=== PATIENT | female | born 1960 | race Caucasian/White ===

== ENCOUNTER 2017-09-24 10:55 | Outpatient (RCR) | payer BC, SELFPAY ==
--- NOTE | 2017-09-24 12:55 | HP.OTFCE_ITS ---
HP OT Functional Capacity Eval - Task Lift Floor (Occasional 1-33% of Day): negligible Floor (Frequent 34-66% of Day): negligible Floor (Constant 67-100% of Day): negligible Floor PDL: Sedentary Knee (Occasional 1-33% of Day): negligible Knee (Frequent 34-66% of Day): negligible Knee (Constant 67-100% of Day): negligible Knee PDL: Sedentary Waist (Occasional 1-33% of Day): negligible Waist (Frequent 34-66% of Day): negligible Waist (Constant 67-100% of Day): negligible Waist PDL: Sedentary Shoulder (Occasional 1-33% of Day): negligible Shoulder (Frequent 34-66% of Day): negligible Shoulder (Constant 67-100% of Day): negligible Shoulder PDL: Sedentary Overhead (Occasional 1-33% of Day): negligible Overhead (Frequent 34-66% of Day): negligible Overhead (Constant 67-100% of Day): negligible Overhead PDL: Sedentary Comments: Pain is significant. She is unable to complete at this time. Further FCE testing would be benefical after MRi and after pain is managed abd treatment has be sought. Pain is limiting all fucntional tasks at this time. - Work Activity/Posture Bending: Occasional Ability (1-33% of day) Squatting: No Ablility (0% of day) Kneeling: No Ablility (0% of day) Reaching up: Occasional Ability (1-33% of day) Sitting: Frequent Ability (34-66% of day) Walking: Occasional Ability (1-33% of day) Comments: 20-33% Standing: Occasional Ability (1-33% of day) Comments: 10-20% - Reference Duration Sedentary Sedentary Light Light Light Medium Medium Medium Heavy Very Heavy Heavy Occasional (0-33% of day) Frequent (34-66% of day) Constant (67-100% of day) 10 # Negligible Negligible 15 # 8 # Negligible 20 # 10# Negli. 35 # 18 # 7 # 50 # 25 # 10 # 75 # 100 # >100 # 38 # 50 # >50 # 15 # 20 # >20 # - Patient Information Height: 1.65 m Weight:: 202 kg Hand Dominance: R - Medical History Medical History Including Restrictions: Pt. notes no medical restrictions at this time. - Diagnoses Diagnoses: PMHx: hemrrhoid surgery July, gallbladder in 2016, CTS release, histeroectomy (1994), COPD, asthma. Current: Had second hemrrhoid surgery is intestine resuction in July 282017. - Symptoms Symptoms: Pt. noted that 'tenderness of tailbone' at end of August after hemrrhoid surgery. Got checked out by doctor by Dr. Patel. She noted released to go back to work September 07. Went to ER in [place] that night due to excruciating pain. Symptoms now include pain in low back. Notes that she feels 'like pulsations in legs and I know I need to sit quick. Notes inable to feel shot injected in back at ER or banaid that they place on low back. - Pain Pain: Pt. rated pain 6/10 in seated position. 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 Reports lifiting requirements between 30-50 lbs. Increased bag weight in pets at 50 lbs. 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 - Behavioral Behavioral: Did not take any pain pills prior to FCE. Consistently educated to complete within pain tolerated. Emotional with increase in pain. Stated I would rather be working that going through this. I like work. - ADLS ADLS: Pt. lives in house with mother. She noted 2 steps to get front door but handrials and posts that she uses instead. Once in home it is FFSU or everything. She noted she does not go up stairs and noted tried to go down to basement last nigth and fell needing mother to get back up on feet. Approximately 15-16 steps to base and same to get to second level. She sleeps in recliner due to COPD. She is completing ADLs (I). She is mod I for bathing as noted she is using shower chair for bathing tasks as difficulty to standing is shower. She is unable to complete grocery shopping at this time. She ntoed she normally cooks and cleans but is unable to compelte cookign at this time secondary to pain. She has dog inwhich mother is helpping to care for at this time. - Physical Examination Physical Examination: Pt. arrived with FCE on this date. She has MRI scheduled after FCE. All tasks completed within pain limit. Worked on joint integrity during tasks to help decrease pain. Pt. noted that she had to complete FCE prior to MRI due to insurance claims. OT educated this may be more beneficial after MRI and as she appeared to be in significant pain. Would be recommend having another FCE when pain is control and has increased functional and pain is significantly limiting ability to complete all functional tasks at this time. She would benefit from further follow up with doctor and potentially PT for management of back pain. ROM: B UE: WFL, increased pain in back with internal rotation. B LE: Pain is limiting at this time. She is unable to complete ROM from standing position as she reports significant pain. ABle to ssume 90 hip flexion, WNL of knee flexion , adn WNL of dorsiflexion from seated position. Verbalized increased pain in L LE. Strength: B UE: Deltoid: R 3+/5, L 3/5. bicep: R 4/5, L 4/5. triceps: R 3+/5 , L 3/5- increased pain as explianedit's pushing me back into chair. BLE: . Able to lift foot off foot but unable to take resistance or hip flexion on B side with L being worse gopi R.MMT R -3/5, L -3/5. Quadracep: R 3/5, L -3/5. Hamstring: R 3/5, L -3/5. Dorsiflexion: R 3/5, L -3/5. PlantarFlexion: R 3/5, L -3/5. Signficiant paina nd compensatiosn with trying to assum testing psoition from seated positions. Emotional at end of task due to pain. Pain gillette increased to 7/10 pain. Right Operating Systems Specialist Strength Average: 45.33 Right Operating Systems Specialist Strength Percentile: 5 Left Operating Systems Specialist Strength Average: 31.33 Left Operating Systems Specialist Strength Percentile: below 10th Right Lateral Pinch Average: 11.00 Right Lateral Pinch Percentile: aboev 25th below 50th Left Lateral Pinch Average: 11.66 Left Lateral Pinch Percentile: 50th Right Tripod Pinch Average: 11.33 Right Tripod Pinch Percentile: 50th Left Tripod Pinch Average: 8.66 Left Tripod Pinch Percentile: 25th Sensation: Sensation is WFL in hands. Increased numbness and tingling in feet all the time since increased symptoms of low back pain. Fine Motor: Intact and WFL. Balance: Poor without w/w or external support. - Non Material Handling Activities Bendinx with poor body mechanics and decreased speed. Able to assum 90-100 degrees hip flexion from standing positiong. Needed external support of legs. Pain increased to 8/10. Pain is signficantly limiting at this time. Squatting: Refused due to inability at this time. Refused secodnary to pain. Pain in limiting at this time. Kneeling: Unable at this time. Not attempted due to safety concerns. Reaching out/up: From seated position: reaching out: 3x, 5x, unable to continue due to pain. Pain 8/10. From seated position: reaching up: 3x, 6x, unable to continue due to pain. Pain 8/10. Pain signficnatly limiting at this time Walking: Completed fx mobility with w/w from lobby to OT with 1x seated break for 1 mins. Walked from OT to stair area with need for 4 breaks and able to handle 2 mins at a time prior to need for break. As walking tasks continued she exhibited increased L foot lag with gait. Required w/c escort to leave facility. Standing: Less than a minute. Approximaly 2 mins with dynamic tasks. Increased pain with all standing tasks and refused to complete static standing actvity any longer due to pain. Pain is limiting at this time. Sittin-60 mins with weight shifts as needed and compensations as needed. Climbing Stairs: Completed 4 stairs only, with increased reliance of B UE and use of B Handrails. She completed with R foot lead. Increased L foot lag. - Dynamic Occasional Lifting Capacity Floor Lift: Unable to complete at this time. Pain significantly limiting. Knee Lift: Unable to complete at this time. Pain significantly limiting. Waist Lift: Unable to complete at this time. Pain significantly limiting. Shoulder Lift: Unable to complete at this time. Pain significantly limiting. Overhead Lift: Unable to complete at this time. Pain significantly limiting. Carrying: Unable to complete at this time. Pain significantly limiting.
--- NOTE | 2017-09-24 12:56 | HP.OTFCE.D ---
FCE D/C Summary - Discharge YUNIER ZAMORA was seen for a one time visit for an FCE on 09/24/17 and is discharged.
--- NOTE | 2017-09-25 08:42 | HP.OTFCE_ITS ---
HP OT Functional Capacity Eval - Task Lift Floor (Occasional 1-33% of Day): negligible Floor (Frequent 34-66% of Day): negligible Floor (Constant 67-100% of Day): negligible Floor PDL: Sedentary Knee (Occasional 1-33% of Day): negligible Knee (Frequent 34-66% of Day): negligible Knee (Constant 67-100% of Day): negligible Knee PDL: Sedentary Waist (Occasional 1-33% of Day): negligible Waist (Frequent 34-66% of Day): negligible Waist (Constant 67-100% of Day): negligible Waist PDL: Sedentary Shoulder (Occasional 1-33% of Day): negligible Shoulder (Frequent 34-66% of Day): negligible Shoulder (Constant 67-100% of Day): negligible Shoulder PDL: Sedentary Overhead (Occasional 1-33% of Day): negligible Overhead (Frequent 34-66% of Day): negligible Overhead (Constant 67-100% of Day): negligible Overhead PDL: Sedentary Comments: Pain is significant. She is unable to complete at this time. Further FCE testing would be benefical after MRI to ensure spinal integrity and after pain management program has been implemented. Pain is limiting all fucntional tasks at this time. - Work Activity/Posture Bending: Occasional Ability (1-33% of day) Squatting: No Ablility (0% of day) Kneeling: No Ablility (0% of day) Reaching up: Occasional Ability (1-33% of day) Sitting: Frequent Ability (34-66% of day) Walking: Occasional Ability (1-33% of day) Comments: 20-33% Standing: Occasional Ability (1-33% of day) Comments: 10-20% - Reference Duration Sedentary Sedentary Light Light Light Medium Medium Medium Heavy Very Heavy Heavy Occasional (0-33% of day) Frequent (34-66% of day) Constant (67-100% of day) 10 # Negligible Negligible 15 # 8 # Negligible 20 # 10# Negli. 35 # 18 # 7 # 50 # 25 # 10 # 75 # 100 # >100 # 38 # 50 # >50 # 15 # 20 # >20 # - Patient Information Height: 1.65 m Weight:: 202 kg Hand Dominance: R - Medical History Medical History Including Restrictions: Pt. notes no medical restrictions at this time. - Diagnoses Diagnoses: PMHx: hemorrhoid surgery July, gallbladder in May 2016, CTS release, hysterectomy (1994), COPD, asthma. Current: Had second hemorrhoid surgery is intestine resection in July 282017. - Symptoms Symptoms: Pt. noted that 'tenderness of tailbone' at end of August after hemorrhoid surgery. Got checked out by doctor by Dr. Patel. She noted released to go back to work September 07. Went to ER in [place] that night due to excruciating pain. Symptoms now include pain in low back. Notes that she feels ' like pulsations in legs and I know I need to sit quick. Notes unable to feel shot injected in back at ER or band aid that they place on low back. - Pain Pain: Pt. rated pain 6/10 in seated position. 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 Reports lifting requirements between 30-50 lbs. 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 report being 50 lbs. 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 - Behavioral Behavioral: Did not take any pain pills prior to FCE. Consistently educated to complete within pain tolerated. Emotional with increase in pain. Grimace and winces noted throughout tasks. Educated to complete within pain tolerance. Stated I would rather be working that going through this. I like work. - ADLS ADLS: Pt. lives in house with mother. She noted 2 steps to get front door but handrails and posts that she uses instead. Once in home it is FFSU or everything. She noted she does not go upstairs and noted tried to go down to basement last night and fell needing mother to get back up on feet. Approximately 15-16 steps to base and same to get to second level. She sleeps in recliner due to COPD. She is completing ADLs (I). She is mod I for bathing as noted she is using shower chair for bathing tasks as difficulty to standing is shower. She is unable to complete grocery shopping at this time. She noted she normally cooks and cleans but is unable to complete cooking at this time secondary to pain. She has dog in which mother is helping to care for at this time. - Physical Examination Physical Examination: Pt. arrived with FCE on this date. She has MRI scheduled after FCE. All tasks completed within pain limit. Worked on joint integrity during tasks she could participate in to help decrease pain. Pt. noted that she had to complete FCE prior to MRI due to insurance claims. OT educated this may be more beneficial after MRI as she appeared to be in significant pain. She noted she wanted to continue. Would recommend having another FCE when pain is under control and has increased functional activity tolerance. Pain is significantly limiting ability to complete all functional tasks. She would benefit from further follow up with doctor and potentially PT for management of back pain. ROM: B UE: WFL, increased pain in back with internal rotation. B LE: Pain is limiting at this time. She is unable to complete ROM from standing position as she reports significant pain. Able to assume 90 hip flexion, WNL of knee flexion , and WNL of dorsiflexion from seated position and heels resting on floor. Verbalized increased pain in L LE. Strength: B UE: Deltoid: R 3+/5, L 3/5. bicep: R 4/5, L 4/5. triceps: R 3+/5 , L 3/5- increased pain as explianed it's pushing me back into chair. BLE: . Able to lift foot off foot but unable to take resistance or hip flexion on B side with L being worse gopi R.MMT R -3/5, L -3/5. Quadracep: R 3/5, L -3/5. Hamstring: R 3/5, L -3/5. Dorsiflexion: R 3/5, L -3/5. PlantarFlexion: R 3/5, L -3/5. Signficiant pain and compensations with trying to assume testing psoition from seated positions. Emotional at end of task due to pain. Pain gillette increased to 7/10 pain. Right Oracle Database Manager Strength Average: 45.33 Right Oracle Database Manager Strength Percentile: 5 Left Oracle Database Manager Strength Average: 31.33 Left Oracle Database Manager Strength Percentile: below 10th Right Lateral Pinch Average: 11.00 Right Lateral Pinch Percentile: aboev 25th below 50th Left Lateral Pinch Average: 11.66 Left Lateral Pinch Percentile: 50th Right Tripod Pinch Average: 11.33 Right Tripod Pinch Percentile: 50th Left Tripod Pinch Average: 8.66 Left Tripod Pinch Percentile: 25th Sensation: Sensation is WFL in hands. Increased numbness and tingling in feet all the time since increased symptoms of low back pain. Fine Motor: Intact and WFL. Balance: Poor without w/w or external support. She reports not having used a w/ w prior to recent back injury. Since time of back injury she noted she has been unable to walk due to significant pain. Increased trunk flexion when asked to not use hand on w/w. Increased grimace and wincing noted. Pain appears significant at this time. - Non Material Handling Activities Bendinx with poor body mechanics and decreased speed. Able to assume 90-100 degrees hip flexion from standing position. Needed external support of legs. Pain increased to 8/10. Winces and grimaces noted. Pain significantly limiting at this time. Squatting: Refused due to inability at this time. Refused secondary to pain. Pain appears limiting at this time. Kneeling: Unable at this time. Not attempted due to safety concerns. Reaching out/up: From seated position: reaching out: 3x, 5x, unable to continue due to pain. Pain 8/10. From seated position: reaching up: 3x, 6x, unable to continue due to pain. Pain 8/10. Pain significantly limiting at this time Walking: Completed fx mobility with w/w from lobby to OT with 1x seated break for 1 mins. Previously did not use w/w prior to back pain. Walked from OT to stair area with need for 4 breaks and able to handle 2 mins at a time prior to need for break. As walking tasks continued she exhibited increased L foot lag with gait. Required w/c escort to leave facility as pain was limiting function. Standing: Less than a minute. Approximately 2 mins with dynamic tasks. Increased pain with all standing tasks and refused to complete static standing activity any longer due to pain. Pain is limiting at this time. Sittin-60 mins with weight shifts and compensations as needed. Notes most comfortable position is seated in reclined in chair. Climbing Stairs: Completed 4 stairs only, with increased reliance of B UE and use of B handrails. She completed with R foot lead. Increased L foot lag. Increased grimance throughout task. Appears to be significant pain. - Dynamic Occasional Lifting Capacity Floor Lift: Unable to complete at this time. Pain significantly limiting. Knee Lift: Unable to complete at this time. Pain significantly limiting. Waist Lift: Unable to complete at this time. Pain significantly limiting. Shoulder Lift: Unable to complete at this time. Pain significantly limiting. Overhead Lift: Unable to complete at this time. Pain significantly limiting. Carrying: Unable to complete at this time. Pain significantly limiting.
== END 2017-09-24 19:00 | disposition home or self-care (01) ==
LOC: OT 10:55
PROVIDERS: Family Provider Family Medicine; PCP Family Medicine; Visit Provider Nurse Practitioner Adult Health
DX: Z13.9 Encounter for screening, unspecified (principal)
CPT/HCPCS: 97750

== ENCOUNTER 2017-11-19 22:32 | Emergency (ER) | payer BC, SELFPAY ==
[2017-11-19 22:33] VITALS: BP 130/78; PULSE 79; RESP 18; TEMP 36.3; O2SAT 97; BMI 35.2
--- NOTE | 2017-11-19 22:37 | RAD_ITS ---
STUDY: X-RAY - LEFT FOOT CLINICAL: Female, 57 years old. FELL, ROLLED ANKLE TECHNIQUE: 3 view(s) of the foot. COMPARISON: None. FINDINGS: There is demineralization of the rear and midfoot bones. There is an enthesophyte involving the posterior superior calcaneus at the site of insertion of the Achilles tendon. Normal visualized subtalar, talonavicular, calcaneocuboid, tarsal and tarsometatarsal articulations. There is demineralization of the metatarsi. Normal metatarsophalangeal joint of the great toe. Normal tibial and fibular sesamoid bones. Normal interphalangeal joint of the great toe. Normal phalanges of the great toe. Normal second through fifth metatarsophalangeal joints. Normal interphalangeal joints and phalanges of the lesser toes. The soft tissue structures are unremarkable. RAD/Foot min 3 Views IMPRESSION: There is an enthesophyte involving the posterior superior calcaneus at the site of insertion of the Achilles tendon. There is demineralization of the bones of the foot Electronically Signed: Naun Broussard MD at 23:30 EDT , Service support ,
--- NOTE | 2017-11-20 00:10 | RAD_ITS ---
STUDY: X-RAY - LEFT ANKLE REASON FOR EXAM: Female, 57 years old. Pain TECHNIQUE: 3 view(s) of the ankle. COMPARISON: None. FINDINGS: There are no acute fractures or dislocations. The ankle mortise and the subtalar joints are normal. There is a bony enthesophyte from the posterior margin of the os calcis. RAD/Ankle min 3 Views IMPRESSION: No fracture. Small bony enthesophyte from the posterior margin of the os calcis Electronically Signed: Emeka Ba, at 0:40 EDT Tel , Service support ,
[2017-11-20] MEDS: HYDROcodone Bitartrate/Apap 5/325 Tablet PO (00:27)
--- NOTE | 2017-11-20 00:32 | ED.DCSUM_ITS ---
- ER Visit Summary Date of Service: 11/20/17 Chief Complaint: Left ankle pain History of Present Illness: The patient is a [address] Doyle and Dr. Bonds. She reports that she was going down the steps this evening with a cane when her legs gave out and she fell. She reports that she has a throbbing pain in her left ankle that is 10 out of 10 in severity. Is worsened by movement. She is taken ibuprofen without relief Patient denies any blow to the head or loss of consciousness. No neck, shoulder , wrist, or hip pain. Physical Examination: Vitals: Stable. Afebrile. Neck: No vertebral tenderness. Full ROM without difficulty. Cleared by NEXUS criteria. Back: No vertebral tenderness. General: A&O x 3. NAD. Cardiovascular exam: Regular rate and rhythm, no murmur, rub or gallop. Respiratory exam: Chest nontender. No crepitus. Clear to auscultation bilaterally. No wheezes or stridor. Abdominal exam: Soft, nontender, nondistended, normal bowel sounds. No pain in RUQ or LUQ specifically. No peritoneal signs. Extremity: Mild to palpation over the lateral malleolus. There is soft tissue swelling and moderate tenderness palpation distal to the lateral malleolus. There is no pain over the medial malleolus. No pain over the base the fifth metatarsal. No pain over the proximal fibula. She is neurovascular intact distal to this.. Test Results: X-rays of her foot and ankle are negative. Emergency Department Course and Treatment: Patient was treated with [place] and placed in an [place] wrap. Treatment Plan: Patient will be discharged [place]. Instructed to follow-up with Dr. Wright in 1 week if not improving. Return to the emergency department for any worsening symptoms. Disposition: To home in improved and stable condition. Impression: 1. Left ankle sprain. This note was generated with [employer] dictation software. It may contain incorrect words, spelling, and punctuation that were not noted in review of the chart prior to signing ED Disposition - Plan for ED Patient: Chief Complaint: Lower Extremity Injury Instructions: ED Sprain Ankle W X Ray Prescriptions: Hydrocodone/Acetaminophen [[place] 5-325 Tablet] 1 - 2 each PO 4X/DAY PRN PRN 5 Days #20 tablet PRN Reason: Pain Referrals: Hany Wright DPM [STAFF PHYSICIAN] - 1 Week if not improving
== END 2017-11-20 00:52 | disposition home or self-care (01) ==
LOC: ED 11-20 00:24
PROVIDERS: Emergency Provider Emergency Medicine; Family Provider Family Medicine; PCP Family Medicine
DX: S93.402A Sprain of unspecified ligament of left ankle, initial encounter (principal); W10.9XXA Fall (on) (from) unspecified stairs and steps, initial encounter; Y93.9 Activity, unspecified; Y92.9 Unspecified place or not applicable; Y99.9 Unspecified external cause status; Z79.1 Long term (current) use of non-steroidal anti-inflammatories (NSAID); Z79.899 Other long term (current) drug therapy; Z87.891 Personal history of nicotine dependence
CPT/HCPCS: 73610; 73630; 99283

== ENCOUNTER → 2017-12-09 07:05 | Outpatient (CLI) | payer BC, SELFPAY ==
--- NOTE | 2017-12-09 07:16 | MRI_ITS ---
STUDY: MRI LEFT ANKLE WITHOUT CONTRAST REASON FOR EXAM: Pain extending anteriorly into the midfoot after rolling the ankle 11/19/2017. TECHNIQUE: Standardized fat and water weighted pulse sequences were obtained in all 3 orthogonal planes. COMPARISON: Radiographs 11/20/2017. FINDINGS: There is mild edema in the lateral subcutis adipose space. There is a small volume of fluid in the distal posterior tibialis tendon sheath (T2 axial images 17, 18). The posterior tibialis tendon is morphologically normal. Normal flexor digitorum longus tendon. Normal flexor hallucis longus tendon. There is a small volume of fluid in the perimalleolar peroneal tendon sheath (inversion recovery sagittal images 17, 18). The peroneus longus and brevis tendons are morphologically normal. Normal tibialis anterior tendon. Normal extensor hallucis longus tendon. There is a very small volume of fluid in the extensor digitorum longus tendon sheath (T2 axial images 14, 15). The extensor digitorum longus tendons are morphologically normal. Normal Achilles tendon and teno-osseous insertion. There is a small posterior calcaneal enthesophyte. Normal plantar fascia. There is a nondisplaced fracture of the anterior calcaneus with extension into the anterior aspect of the posterior tuberosity of the calcaneus (T1 sagittal images 11-14) and intra-articular extension into the calcaneocuboid articulation (T1 sagittal image 25) without extension into the posterior subtalar articulation. There is a mild strain of the extensor digitorum brevis muscle (inversion recovery sagittal images 17, 18). Normal distal tibiofibular syndesmotic ligamentous complex. Normal lateral ligamentous complex. There is edema in the sinus tarsi (inversion recovery sagittal images 12-14). Normal deltoid ligamentous complexes. Normal plantar calcaneonavicular (spring) ligament. Normal tibiotalar articulation. Normal talar dome. There is a small posterior subtalar joint effusion (inversion recovery sagittal images 12-14). Normal talonavicular articulation. Normal calcaneocuboid articulation. Normal navicular-cuneiform articulations. There is a small bone contusion of the distal talus (inversion recovery sagittal images 10, 11). 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 MRI/Lower Ext Joint Only (Routine) IMPRESSION: Nondisplaced anterior calcaneal fracture. Nonosseous calcaneonavicular coalition. Small bone contusion of the distal talus. Mild posterior tibialis tenosynovitis. Mild peroneal tenosynovitis. Very mild extensor digitorum longus tenosynovitis. Mild sprain of the extensor digitorum brevis muscle. Edema in the sinus tarsi. Small posterior subtalar joint effusion. No demonstrated tear of the anterior tibialis tendon. Electronically Signed: Rafael Allen MD at 11:22 EDT Tel , Service support ,
== END ==
PROVIDERS: Family Provider Family Medicine; PCP Family Medicine; Visit Provider Podiatrist
DX: S86.212A Strain of muscle(s) and tendon(s) of anterior muscle group at lower leg level, left leg, initial encounter (principal); S93.402A Sprain of unspecified ligament of left ankle, initial encounter; X58.XXXA Exposure to other specified factors, initial encounter; Y93.9 Activity, unspecified; Y92.9 Unspecified place or not applicable; Y99.9 Unspecified external cause status
CPT/HCPCS: 73721

== ENCOUNTER → 2018-04-13 13:34 | Outpatient (CLI) | payer BC, SELFPAY ==
--- NOTE | 2018-04-13 13:36 | RAD_ITS ---
STUDY: X-RAY - LUMBAR SPINE REASON FOR EXAM: Female, 57 years old. Low back pain TECHNIQUE: 4 view(s) of the lumbar spine were obtained. Weightbearing with extension and flexion views COMPARISON: None FINDINGS: Normal lumbar lordosis. There is no substantial scoliosis. There is a normal alignment of the vertebrae. Endplate degenerative changes with disc space height loss noted at L4-5 and L5-S1. Questionable L4 and L5 bilateral pars defects, chronic in nature. The soft tissue structures are unremarkable. Left iliac stent is noted. RAD/L/S Spine Min 4 Views IMPRESSION: Degenerative changes without acute findings Electronically Signed: Oc Carl DO at 13:42 EST Tel , Service support ,
--- OUTSIDE RECORDS SUMMARY | 2018-06-09 02:48 | XMS RPT_ITS ---
:1960 Author Organization OHIP Care Team Providers Name Role Phone MAYE AVINA Admitting Unavailable MAYE AVINA Attending Unavailable SANDRA DEWEY Attending Unavailable ELSA LOBO (PAC) Referring Unavailable PERICO LINCOLN Admitting Unavailable PERICO LINCOLN Attending Unavailable TACO KELLY Admitting Unavailable TACO KELLY Attending Unavailable JACKIE WELLINGTON (MAKE READY MECHANIC) Attending Unavailable JACKIE WELLINGTON (MAKE READY MECHANIC) Referring Unavailable HANY COTA Referring Unavailable HANY COTA Referring Unavailable HANY COTA Attending Unavailable HANY COTA Referring Unavailable MAEY AVINA Attending Unavailable MAYE AVINA Attending Unavailable MAYE AVINA Referring Unavailable BOBCECIL (MAKE READY MECHANIC) Attending Unavailable BOBCECIL (MAKE READY MECHANIC) Referring Unavailable CORNIELLO, AARTI Messer (MAKE READY MECHANIC) Attending Unavailable CORNIELLO, AARTI Ayde (MAKE READY MECHANIC) Referring Unavailable CORNIELLO, AARTI Messer (MAKE READY MECHANIC) Attending Unavailable CORNIELLO, AARTI Messer (MAKE READY MECHANIC) Referring Unavailable TROTTERELIZABETH (PT) Attending Unavailable HANY COTA Referring Unavailable ELSA LOBO (PAC) Attending Unavailable CORNIELLO, AARTI Messer (MAKE READY MECHANIC) Referring Unavailable PERICO LINCOLN Attending Unavailable ELSA LOBO (PAC) Referring Unavailable HILD, SARITA Attending Unavailable HILD SARITA Referring Unavailable TROTTERELIZABETH (PT) Attending Unavailable CIPRIANOHANY MARTIN Attending Unavailable CORNIELLO, AARTI Messer (MAKE READY MECHANIC) Referring Unavailable CORNIELLO, AARTI Messer (MAKE READY MECHANIC) Referring Unavailable ELSA LOBO (PAC) Attending Unavailable CORNIELLO, AARTI Messer (MAKE READY MECHANIC) Referring Unavailable CIPRIANOHANY MARTIN A Referring Unavailable CELINA ELLINGTON Attending Unavailable CIPRIANO HANY A Referring Unavailable ELLINGTONCELINA CULP Referring Unavailable CIPRIANOHANY Attending Unavailable CIPRIANO, HANY A Referring Unavailable CIPRIANO, HANY A Referring Unavailable CELINA ELLINGTON Attending Unavailable CELINA ELLINGTON Referring Unavailable ROBINTACO CALI Attending Unavailable CELINA ELLINGTON Referring Unavailable JOSEDILLON Attending Unavailable JOSEDILLON SCHULTZ Referring Unavailable JOSEDILLON Referring Unavailable ROBINTACO Referring Unavailable ROBINTACO CALI Attending Unavailable CIPRIANO HANY A Referring Unavailable ОЛЬГА BUCKNER (PA) Attending Unavailable DILLON GARCIA Referring Unavailable GABBY DAVE Attending Unavailable ОЛЬГА BUCKNER (PA) Referring Unavailable RAMA DIALLO (PA) Referring Unavailable RAMA DIALLO (PA) Attending Unavailable GABBY DAVE Admitting Unavailable GABBY DAVE Attending Unavailable GABBY DAVE Referring Unavailable GABBY DAVE Attending Unavailable CIPRIANO HANY A Referring Unavailable CIPRIANO, HANY A Referring Unavailable WOLFGANG BARGER Referring Unavailable ELLINGTON, CELINA D Referring Unavailable ELLINGTONKITTY CULPCELINA D Attending Unavailable ELLINGTON, CELINA D Referring Unavailable ELLINGTON, CELINA D Referring Unavailable Corniello, Aarti CHILD WELFARE CASEWORKER-C Attending Unavailable Aarti Sotelo CHILD WELFARE CASEWORKER-C Referring Unavailable Hany Cota Primary Care Unavailable Hany Cota Primary Care Unavailable Michelet Tate Attending Unavailable Hany Wright Attending Unavailable Hany Wright Referring Unavailable Hany Cota Primary Care Unavailable Dara Christiansen Attending Unavailable Hany Cota Referring Unavailable Dara Christiansen Attending Unavailable Dana Dara Referring Unavailable Hany Cota Primary Care Unavailable PROBLEMS PROBLEMS DATE TYPE CONDITION / CODE ATTENDING STATUS SOURCE 04/26/2018 Active Pain in right NA Active [facility] finger(s) / [facility] Main M79.644(ICD-10) [facility] Repository 10/19/2017 Active Solitary pulmonary NA Active [facility] nodule / [facility] Main R91.1(ICD-10) [facility] Repository 04/13/2018 Unknown M54.5 - Low back pain Dara Christiansen Active [facility] / M54.5(ICD-10) [facility] Repository 04/07/2018 Active Abdominal distension GABBY DAVE Active [facility] (gaseous) / [facility] Clinic Main R14.0(ICD-10) [facility] Repository 04/05/2018 Active Pain, unspecified / NA Active [facility] R52(ICD-10) Clinic Main [facility] Repository 03/25/2018 Active Unspecified NA Active [facility] disturbances of skin Clinic Main sensation / [facility] R20.9(ICD-10) Repository 03/10/2018 Active Compression of vein / TACO KELLY Active [facility] I87.1(ICD-10) Clinic Other [facility] Repository 02/24/2018 Active Encounter for other NA Active [facility] preprocedural [facility] Main examination / [facility] Z01.818(ICD-10) Repository 02/24/2018 Active Acute transverse NA Active [facility] myelitis in Clinic Main demyelinating disease [facility] of central nervous Repository system / G37.3(ICD-10) 02/24/2018 Active Localized swelling, NA Active [facility] mass and lump, trunk Clinic Main / R22.2(ICD-10) [facility] Repository 02/24/2018 Active Lumbago with NA Active [facility] sciatica, left side / Clinic Main M54.42(ICD-10) [facility] Repository 02/24/2018 Active Other chronic pain / NA Active [facility] G89.29(ICD-10) Clinic Main [facility] Repository 01/07/2018 Active Vitamin D deficiency, NA Active [facility] unspecified / [facility] Main E55.9(ICD-10) [facility] Repository 12/24/2017 Active Other specified NA Active [facility] conditions associated Clinic Main with female genital [facility] organs and menstrual Repository cycle / N94.89(ICD-10) 12/21/2017 Active Unknown / NA Active [facility] UNK(Unknown) Clinic Other [facility] Repository 07/16/2017 Active Encounter for general NA Active [facility] examination without [facility] abnormal findings / Repository Z00.00(ICD-10) 11/02/2015 Active Encounter for NA Active [place] screening for [facility] Main cardiovascular [facility] disorders / Repository Z13.6(ICD-10) 11/02/2015 Active Encounter for Active [place] screening for [facility] Main diabetes mellitus / [facility] Z13.1(ICD-10) Repository 11/20/2017 Unknown S93.409A - Sprain of Bebeto, Michelet Active [facility] unspecified ligament [facility] unspecified ankle, Hospital initial encounter / Repository S93.409A(ICD-10) 10/19/2017 Active Radiculopathy, lumbar LINCOLN PERICO C Active [facility] region / Clinic Other M54.16(ICD-10) [facility] Repository 10/19/2017 Active Other intervertebral LNICOLN, PERICO C Active [facility] disc displacement, Clinic Other lumbosacral region / [facility] M51.27(ICD-10) Repository 10/20/2017 Active Abnormal findings on NA Active [place] diagnostic imaging of [facility] Main other specified body [facility] structures / Repository R93.8(ICD-10) 10/20/2017 Active Disorder of bone, NA Active [facility] unspecified / [facility] Main M89.9(ICD-10) [facility] Repository 10/13/2017 Active Intervertebral disc NA Active [facility] disorders with Clinic Other radiculopathy, lumbar [facility] region / Repository M51.16(ICD-10) 10/08/2017 Active Abdominal aortic NA Active [facility] aneurysm, without Clinic Main rupture / [facility] I71.4(ICD-10) Repository 09/24/2017 Active Low back pain / NA Active [facility] M54.5(ICD-10) Clinic Main [facility] Repository 09/24/2017 Active Spinal instabilities, NA Active [facility] lumbar region / Clinic Main M53.2X6(ICD-10) [facility] Repository 09/24/2017 Active Other symptoms and NA Active [facility] signs involving the Clinic Main musculoskeletal [facility] system / Repository R29.898(ICD-10) 09/24/2017 Active Anesthesia of skin / NA Active [facility] R20.0(ICD-10) Clinic Main [facility] Repository 09/24/2017 Active Paresthesia of skin / NA Active [facility] R20.2(ICD-10) [facility] Main [facility] Repository 09/07/2017 Active Strain of muscle, DEWEY, Active [facility] fascia and tendon of SANDRA D Clinic Other lower back, initial [facility] encounter / Repository S39.012A(ICD-10) 07/04/2016 Active Chronic obstructive NA Active [facility] pulmonary disease, [facility] Main unspecified / [facility] J44.9(ICD-10) Repository 07/28/2017 Active Other hemorrhoids / AVINA MAYE Active [facility] K64.8(ICD-10) E Clinic Other [facility] Repository 07/16/2017 Active Encounter for NA Active [facility] screening for [facility] Main malignant neoplasm of [facility] colon / Repository Z12.11(ICD-10) 06/03/2015 Active Hypothyroidism, NA Active [facility] unspecified / Clinic Main E03.9(ICD-10) [facility] Repository 06/11/2017 Active Encounter for NA Active [facility] screening mammogram [facility] for malignant [facility] neoplasm of breast / Repository Z12.31(ICD-10) PROCEDURES PROCEDURES No Procedure Records FoundRESULTS RESULTS CNPN Observed: 04/29/2018 Status: COMPLETED Source: [facility] 12:00 AM [facility] REPOSITORY Telephone ([employer]) YUNIER PATIÑO ([id number]) 1960 F Date Time Provider Department 04/29/18 HANY COTA [employer] During your visit today, we recorded the following information about you: [place] Huang RAVINDER 04/29/2018 4:47 PM Signed Pt calls to report she had EGD and colonoscopy done 04/07. Pt reports it was recommended that she eat more fiber for sx. Pt reports she is taking in more fiber and stools are fine but she is still having upper abdominal discomfort. Pt reports stomach feels really full all the time and aches under breasts/ribs. Pt reports it is hard to take a deep breath. Pt reports she has this feeling daily. Pt asking what can be done. Albania Huang SURGERY SPECIALIST Hany Cota MD 04/29/2018 5:00 PM Signed I'm going to pass info onto Dr. Dave who did the procedures to get her input first and go from there. Urszula Bowman LPN 04/30/2018 1:21 PM Signed Patient notified and routed to schedule. Allergies As of Date: 04/29/2018 Noted Allergy Reaction LAGUNA 06/08/2012 7 - Swelling CIPROFLOXACIN 12/17/2015 14 - Other: See Comments Comments: Chest tightness DUST 06/08/2012 7 - Swelling GABAPENTIN 10/14/2017 7 - Swelling Comments: Throat swelling. INSECT PARTS 03/26/2016 7 - Swelling 12 - Shortness of Breath 17 - Myalgia Comments: Pt not sure what bit her but developed redness,difficulty swallowing and swelling of face and neck POLLEN 06/08/2012 7 - Swelling MORPHINE 06/08/2012 11 - Vomiting Date Reviewed: 04/26/2018 Reviewed by: David Juarez RN - Fully Assessed Reason for Visit: abdominal discomfort [Other] Visit Diagnosis:Delayed gastric emptying [K30] Order(s):NM GASTRIC EMPTYING SOLID [[id number]] Order #: [id number] FUTURE Prescriptions as of 04/29/2018 Sig: ALBUTEROL SULFATE HFA 90 MCG/* Inhale 2 Puffs as instructed * ASPIRIN 325 MG TABLET,DELAYED* Take 1 tablet by mouth once d* COMPOUNDED PRESCRIPTION One rollator walker with whee* EPINEPHRINE 0.3 MG/0.3 ML INJ* Inject 0.3 mL intramuscularly* HYDROXYZINE HCL 25 MG TABLET Take 1 tablet by mouth twice * LEVOTHYROXINE 50 MCG TABLET Take 1 tablet by mouth once d* MONTELUKAST 10 MG TABLET Take 1 tablet by mouth daily * PANTOPRAZOLE 40 MG TABLET,DEL* Take 1 tablet by mouth twice * RANITIDINE 150 MG TABLET Take 1 tablet by mouth twice * SUMATRIPTAN 100 MG TABLET One table by mouth with onset* Problem List As Of Date 04/29/2018 Noted Resolved Migraine without aura and without status migrai* More... More... Acquired hypothyroidism [E03.9] INVALID FOR* More... More... Encounter for screening for diabetes mellitus [*INVALID FOR*04/23/2018 Encounter for screening for cardiovascular diso*INVALID FOR*04/23/2018 Encounter for gynecological examination without*INVALID FOR*04/23/2018 More... Chronic obstructive pulmonary disease (HCC) [J4*INVALID FOR* More... Hemorrhoids, internal, with bleeding [K64.8] INVALID FOR* Well adult exam [Z00.00] INVALID FOR* More... More... Chronic bilateral low back pain with bilateral *INVALID FOR* Radiculopathy, lumbar region [M54.16] INVALID FOR* Lumbago-sciatica due to displacement of lumbar *INVALID FOR* Ex-smoker [Z87.891] INVALID FOR* More... Lung nodule [R91.1] INVALID FOR* More... Mild persistent asthma without complication [J4*INVALID FOR* May-Thurner syndrome [I87.1] INVALID FOR* Primary osteoarthritis of both first carpometac*INVALID FOR* More... Status post insertion of iliac artery stent [Z9*INVALID FOR* Abnormal CT of the chest [R93.89] INVALID FOR* Encounter Status:Closed by MD GABBY DAVE on 04/30/18 PROGRESS Observed: 04/26/2018 Status: COMPLETED Source: [place] 4:19 PM [facility] REPOSITORY HNO ID: [id number] Author: Celina Ellington Service: (none) Author Type: Physician Type: Progress Notes Filed: 04/26/2018 4:19 PM Note Text: This office note has been dictated. Celina Ellington DO CNOV Observed: 04/26/2018 Status: COMPLETED Source: [place] 11:30 AM [facility] REPOSITORY Office Visit (VASSWS) YUNIER PATIÑO ([id number]) 1960 F Date Time Provider Department 04/26/18 11:30 AM CELINA ELLINGTON [facility]ASSWS During your visit today, we recorded the following information about you: Celina Ellington DO 04/26/2018 4:19 PM Signed This office note has been dictated. Celina Ellington DO Referring Provider: CELINA ELLINGTON [[id number]] Allergies As of Date: 04/26/2018 Noted Allergy Reaction LAGUNA 06/08/2012 7 - Swelling CIPROFLOXACIN 12/17/2015 14 - Other: See Comments Comments: Chest tightness DUST 06/08/2012 7 - Swelling GABAPENTIN 10/14/2017 7 - Swelling Comments: Throat swelling. INSECT PARTS 03/26/2016 7 - Swelling 12 - Shortness of Breath 17 - Myalgia Comments: Pt not sure what bit her but developed redness,difficulty swallowing and swelling of face and neck POLLEN 06/08/2012 7 - Swelling MORPHINE 06/08/2012 11 - Vomiting Date Reviewed: 04/26/2018 Reviewed by: David Juarez RN - Fully Assessed Primary Visit Diagnosis:May-Thurner syndrome [I87.1] Other Visit Diagnosis:Finger pain, right [M79.644] Order(s):PVR ARM ALL FINGERS UNL [facility] [[id number]] Order #: [id number] FUTURE US VISCERAL VEIN COMPLETE [facility]AS LAB [[id number]] Order #: [id number] FUTURE Prescriptions as of 04/26/2018 Sig: ASPIRIN 325 MG TABLET,DELAYED* Take 1 tablet by mouth once d* RANITIDINE 150 MG TABLET Take 1 tablet by mouth twice * PANTOPRAZOLE 40 MG TABLET,DEL* Take 1 tablet by mouth twice * MONTELUKAST 10 MG TABLET Take 1 tablet by mouth daily * HYDROXYZINE HCL 25 MG TABLET Take 1 tablet by mouth twice * COMPOUNDED PRESCRIPTION One rollator walker with whee* LEVOTHYROXINE 50 MCG TABLET Take 1 tablet by mouth once d* ALBUTEROL SULFATE HFA 90 MCG/* Inhale 2 Puffs as instructed * EPINEPHRINE 0.3 MG/0.3 ML INJ* Inject 0.3 mL intramuscularly* SUMATRIPTAN 100 MG TABLET One table by mouth with onset* Problem List As Of Date 04/26/2018 Noted Resolved Migraine without aura and without status migrai* More... More... Acquired hypothyroidism [E03.9] INVALID FOR* More... More... Encounter for screening for diabetes mellitus [*INVALID FOR*04/23/2018 Encounter for screening for cardiovascular diso*INVALID FOR*04/23/2018 Encounter for gynecological examination without*INVALID FOR*04/23/2018 More... Chronic obstructive pulmonary disease (HCC) [J4*INVALID FOR* More... Hemorrhoids, internal, with bleeding [K64.8] INVALID FOR* Well adult exam [Z00.00] INVALID FOR* More... More... Chronic bilateral low back pain with bilateral *INVALID FOR* Radiculopathy, lumbar region [M54.16] INVALID FOR* Lumbago-sciatica due to displacement of lumbar *INVALID FOR* Ex-smoker [Z87.891] INVALID FOR* More... Lung nodule [R91.1] INVALID FOR* More... Mild persistent asthma without complication [J4*INVALID FOR* May-Thurner syndrome [I87.1] INVALID FOR* Primary osteoarthritis of both first carpometac*INVALID FOR* More... Status post insertion of iliac artery stent [Z9*INVALID FOR* Abnormal CT of the chest [R93.89] INVALID FOR* Encounter Status:Closed by CELINA ELLINGTON DO on 04/26/18 PROGRESS Observed: 04/26/2018 Status: COMPLETED Source: [place] 12:00 AM [facility] REPOSITORY HNO ID: [id number] Author: Celina Ellington Service: Vascular Surgery Author Type: Physician Type: Progress Notes Filed: 05/03/2018 1:52 PM Note Text: NAME: YUNIER PATIÑO [facility] NO: [id number] DATE OF SERVICE: 04/26/2018 Subjective: Yunier is here to follow up on September-Thurner's with a venogram and iliac stenting. She denies any focal lower extremity complaints. She has noticed some improvement. She still gets occasional groin pain, however, her back pain and walking have slightly improved since her stenting. Her other concern is of her right 2nd finger. She states they always have difficulty getting a pulse ox and a few months ago, she noticed it was white and painful. Since then, it has gotten better. Objective: She is in no distress. She has no significant lower extremity edema. She has palpable radial pulses. Her right 2nd finger does have capillary refill, however, is delayed slightly. Assessment/Plan: Josue Reviewed her duplex. It does appear that her stent is patent, however, it was limited secondary to bowel gas. We will get upper extremity PVRs, however, currently she is asymptomatic. Of note, after her PVRs were performed and we did review the findings. It did appear that on the left she had reversible vasospasm of that finger in the right and was just flatlined dampening signal. She is currently asymptomatic. Would not recommend any extreme intervention. We primarily did this as a baseline because she is due to have carpal tunnel surgery within the upcoming weeks and will notify Ortho of those findings. Celina Ellington D.O. KB/[id number] Audio #: [id number] Date Dictated: 04/26/2018 15:36:51 Date Typed: 04/28/2018 12:43:16 Date Revised: ORTHOPEDIC VISIT Observed: 04/24/2018 Status: F Source: [place] REPORT 10:[address] [facility] REPOSITORY [facility] [address] [place] [address] OFFICE VISIT Date of Service: 04/13/18 MR#: [id number] Acct: [id number] Name: YUNIER PATIÑO Rep #: [id number] : 1960 Provider: Dara Christiansen MD Age/Sex: 57/F Location: [place] Status: Signed Intake Intake Visit Reasons: LOW BACK PAIN Is patient in pain?: Yes Pain scale (1-10): 5 Allergies ciprofloxacin Allergy (Verified 04/13/18 13:01) breathing issues gabapentin Allergy (Verified 11/19/17 22:36) Angioedema morphine Allergy (Verified 11/19/17 22:36) Unknown Medications Baclofen 10 mg PO DAILY 11/20/17 [History Confirmed 11/20/17] Levothyroxine [Synthroid] 50 mcg PO DAILY 11/20/17 [History Confirmed 04/13/18] Naproxen 1 tab PO BID 11/20/17 [History Confirmed 11/20/17] Pantoprazole Sodium 1 tab PO DAILY 11/20/17 [History Confirmed 04/13/18] aspirin 325 mg tablet 325 mg PO DAILY 04/13/18 [History Confirmed 04/13/18] epinephrine 0.3 mg/0.3 mL injection, auto-injector 0.3 mg IM ONCE 04/13/18 [History Confirmed 04/13/18] sumatriptan 100 mg tablet 100 mg PO ONCE 04/13/18 [History Confirmed 04/13/18] PFSH Surgical History gallbladder removal (Acute) Social History Smoking Status: Former smoker HPI LOW BACK PAIN: Details: YUNIER PATIÑO is a 57 year old RHD F here today referred by her PCP for low back pain. Patient notes that she has had chronic low back pain that has worsened. She states that she bent over to leaf size picker a piece of paper. She notes that she had difficulty standing. She presented to the ER due to pain. It is slight improved since 08/2017, when it worsened. The pain waxes and wanes. Patient notes her pain is over her mid spine 60% and left lateral thigh pain stopping at her knee and leg giveway. Patient has left foot numbness when sitting in her recliner. Patient states that she has increased pain with standing. It is improved with nothing. She ambulates with a walker since 11/2017. She denies bowel or bladder issues or difficulty with hand dexterity.. She has had physical therapy without relief. She has had no aqua therapy. She continues to do her HEP. Patient had seen Dr Lincoln at the [facility] and had spinal injections. No records available. She transitioned to Dr. Nesbitt currently. She had an EMG and MRI. She deneis difficutly with hand dexterity. She notes new onset of right index finger paresthesias. She has not seen a neurologist and thought she was seen a neurologist today. She has a history of a stene placed for an aortic aneurysm in 02/2018. This helped her groin pain. He denies constitutional symptoms. She is unemployed. She has COPD and hypothyroidism. She denies nicotine use. She was taking gabapentin which she is allergic. Patient takes ibuprofen for pain. ROS Const Reports system reviewed and no additional complaints, except as docu Eyes Reports system reviewed and no additional complaints, except as docu ENT Reports system reviewed and no additional complaints, except as docu Card Reports system reviewed and no additional complaints, except as docu Resp Reports system reviewed and no additional complaints, except as docu GI Reports system reviewed and no additional complaints, except as docu Reports system reviewed and no additional complaints, except as docu Musc Reports back pain, Reports numbness, Reports radiating pain into limb Skin/Breast Reports system reviewed and no additional complaints, except as docu Neuro Yes system reviewed and no additional complaints, except as docu, Yes numbness Psych Reports system reviewed and no additional complaints, except as docu Endo Reports system reviewed and no additional complaints, except as docu Ortho Exam Spine Neuro: Yes Clonus (none bialterally), Milton's (positive bilaterally), Babinski (equivocal bilaterally) and Straight Leg Raise (negative bilaterally) General: alert, oriented x3 Capillary Refill <2sec: Yes Palpable Pulses: 2+ dp/pt pulses Gait: antalgic, other (able to heel and toe stand) Motor: strength 5/5 throughout Sensory Exam: no sensory deficits noted DTR's: Rt Triceps: 2+, Lt Triceps: 2+, Rt Biceps: 2+, Lt Biceps: 2+, Rt Brachioradialis: 2+, Lt Brachioradialis: 2+, Rt Patellar: 2+, Lt Patellar: 2+, Rt Ankle: 2+, Lt Ankle: 2+ Plantar Reflexes: Equivocal: bilateral Coordination: Romberg test normal SPINE TESTING CERVICAL THORACIC LUMBAR Iliac Compression: Positive, Right, Le Musculoskeletal General: Yes normal posture Cervical Spine: cervical ROM normal Thoracic/Lumbar Spine: straight leg raise negative bilaterally, thoraco-lumbar ROM limited, pain with thoraco-lumbar ROM (worse with lumbar extension than flexion) Sacroiliac joints: bilateral (tenderness bilaterally) Strength 0=absent - 5=normal Deltoid R (C5): 5, Deltoid L (C5): 5, R Bicep (C5-6): 5, L Bicep (C5-6): 5, R Wrist Extensor (C6): 5, L Wrist Extensor (C6): 5, R Tricep (C7): 5, L Tricep (C7): 5, R Finger Flexors (C8): 5, L Finger Flexors (C8): 5, R First Dorsal Interossei (C8): 5, L First Dorsal Interossei (C8): 5, R Hip Flexor (L1-3): 5, L Hip Flexor (L1-3): 5, R Quadriceps (L2-4): 5, L Quadriceps (L2-4): 5, R Anterior Tibialis (L4-5): 5, L Anterior Tibialis (L4- 5): 5, R Hamstrings (L5-S1): 5, L Hamstrings (L5-S1): 5, GS (S1): 5, L GS (S1): 5, R Peroneals (S1): 5, L Peroneals (S1): 5 Details: positive arash bilaterally 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 Chronic bilateral low back pain without sciatica M54.5; G89.29 2. Pain of left lateral upper thigh M79.652 Plan Imaging: XR lumbar spine 04/13/2018 reveals diffuse spondylosis with left iliac stent present MRI lumbar spine CD REPORT 09/24/2017 with and without contrast reveals diffuse spondylosis with mild left L4-5 foraminal stenosis EMG 03/25/2018 reveals no evidence of left lumbosacral radiculopathy or polyneuropathy I/R/P: 1. back pain, chronic 2. left lateral thigh pain 3. bilateral SI joint pain 4. history of iliac stent placement on 02/2018 5. COPD Ms. Patiño presents with back pain and bilateral SI joint pain. His MRI does not reveal significant neural compression per report to correlate with his clinical complaints. Would recommend patient obtain another CD of his MRI for review. Recommend referral to neurologist complains of left leg weakness and giveway complaints. Continue pain management per Dr. Nesbitt to include SI joint injections. Follow up after obtaining MRI CD for review. Plan of care discussed. All questions answered. He is in understanding. Orders Orders: Coding Level of Care Code Off vis,new,level 4 Diagnoses Chronic bilateral low back pain without sciatica M54.5; G89.29 Back pain location: low back pain Chronicity: chronic Back pain laterality: bilateral Sciatica presence: without sciatica Pain of left lateral upper thigh M79.652 04/24/18 1014 <Electronically signed by Dara Christiansen MD> Date Dara Christiansen MD Cosigner Signature: Date (if applicable) CC: Hany Cota MD NURSING PROG Observed: 04/23/2018 Status: COMPLETED Source: [place] 3:50 PM CLINIC OTHER CAMPUS REPOSITORY HNO ID: [id number] Author: Susana Pizarro) SANJANA Barlow Service: Nursing Author Type: Registered Nurse Type: Nursing Progress Note Filed: 04/23/2018 3:56 PM Note Text: PACC Nurse Progress Note History AND Physical: PACC Visit Date: 04/23/18 Original HANDP Date: 04/23/18 ED visit Date: N/A Outside HANDP Scanned Date: N/A Labs Within Last 6 Months: CBC: Date 02/24/18 cbc- wnl BMP/CMP: Date 02/24/18 bmp- BS 100,otherwise wnl HBA1C: Date 01/07/18 5.1 Imaging Within Last 12 Months: CT Scan 04/21/18 -chest,abnormal ,ordered and rev'd by Dr Deonte Cota, suggested F/U Cardiac Testing: N/A Last Menstrual Period: LMP Date: N/A Postmenopausal >1yr: Yes, S/P Hysterectomy: Yes BMI Percentile (PEDS): N/A BMI 37.4 Risk Assessment: N/A Anesthesia Review: Small mouth MP 4 full dentures- hyoid to mentum during neck extension 2 finger breaths Narrative: Recent common iliac stenting in 02/2018- May thurner syndrome per dr Ellington note- Denies h/o DVT/ PE- Pt to stay on ASA 81 mg daily HX migraines, COPD,mild asthma Pre-op Considerations: left leg weakness and using walker Chart Check: COMPLETED Susana Barlow RN April 23, 2018 3:50 PM HISTORY PHYSICAL Observed: 04/23/2018 Status: COMPLETED Source: [place] 9:12 AM CLINIC MAIN CAMPUS REPOSITORY HNO ID: [id number] Author: Irena Vasquez (Pa) Service: (none) Author Type: Physician Wood Tile Installation Helper Type: HANDP Filed: 04/23/2018 9:54 AM Note Text: HISTORY AND PHYSICAL EXAMINATION SERVICE DATE: 04/23/2018 SERVICE TIME: 9:12 AM PRIMARY CARE PHYSICIAN: Hany Cota MD REASON FOR VISIT: Yunier Patiño is a 57 year old female who is scheduled for right wrist arthroplasty at the request of Dr. Wolfgang Barger for consultation. My final recommendation will be communicated back to the requesting physician by way of shared medical record or letter. The patient has the following: ACTIVE PROBLEM LIST Migraine Without Aura and Without Status Migrainosus, Not Intractable Acquired Hypothyroidism Chronic Obstructive Pulmonary Disease (Hcc) Hemorrhoids, Internal, With Bleeding Well Adult Exam Chronic Bilateral Low Back Pain With Bilateral Sciatica Radiculopathy, Lumbar Region Lumbago-Sciatica Due to Displacement of Lumbar Intervertebral Disc Ex-Smoker Lung Nodule Mild Persistent Asthma Without Complication May-Thurner Syndrome Primary Osteoarthritis of Both First Carpometacarpal Joints Status Post Insertion of Iliac Artery Stent Subjective CHIEF COMPLAINT: right thumb base and wrist pain HPI: 57 yo female with pain in the base of the right thumb and wrist over the past 4-5 yrs. She is active with her hands at work and sometimes she will have a sharp pain and drop things at work. Better with rest but is does wake her up at night if she was active during the day. Prior treatments have been NSAIDS and rest. No surgery or injections. PAST MEDICAL HISTORY Diagnosis Date - Chronic obstructive pulmonary disease (HCC) 01/03/2016 Patient reports diagnosis by CT - COPD (chronic obstructive pulmonary disease) (HCC) - Ex-smoker 10/19/2017 Started around 10-11 yo up to 1/2 PPD and quite 2008 - GERD (gastroesophageal reflux disease) - Headache(784.0) starting 47 years old - Hypothyroidism 06/11/2012 - Mild persistent asthma without complication 02/25/2018 PAST SURGICAL HISTORY Procedure Laterality Date - CHOLECYSTECTOMY 07/17/2015 - COLONOSCOP W/ OR W/O BRSH SPEC 09/13/13 few diverticula, repeat 10 yrs - COLONOSCOP W/ OR W/O BRSH SPEC 04/07/2018 Colonoscopy - EGD W/O BRSH SPECIMEN W/BX 09/13/13 gastritis - EGD W/O OR W/BRUSH/WASH 04/07/2018 EGD - FECAL OCCULT BLOOD TEST 07/16/2017 negative - HEMORRHOIDECTOMY 07/28/2017 - LIGATION OF HEMORRHOID(S) 05/05/2016 - PAST SURGICAL HISTORY OF - PAST SURGICAL HISTORY OF breast cyst, right? - PAST SURGICAL HISTORY OF Left 02/2018 common iliac stent - REMOVAL OF TONSILS,<12 Y/O Tonsillectomy - [facility] N/CARPAL TUNNEL SURG 05/26/12 Carpal tunnel decomp-bilateral - TOOTH EXTRACTION ~2009 all teeth extracted - TOTAL ABDOM HYSTERECTOMY 1994 [place], ovaries? menorrhagia, benign FAMILY HISTORY Problem Relation Age of Onset - Ischemic Heart Disease Father 68 [place] 72 - Prostate Cancer Father - Coronary Artery Disease Father early 50's - other (ischemic bowel disease) Father ?diverticulosis - Alzheimer's Disease Maternal Grandmother - Lipids Mother - Thyroid Mother - Thyroid Sister SOCIAL HISTORY: Social History Marital status: Legally Spouse name: Years of education: Number of children: 2 Occupational History Occupation Employer [employer] Social History Main Topics Smoking status: Former Smoker Packs/day: 0.50 Years: 20.00 Types: Cigarettes Quit date: 05/18/2008 Smokeless tobacco: Never Used Alcohol use: No Drug use: No Sexual activity: Yes Partners with: Male control/protection: Surgical Social History Narrative from her since 1990 ( did not show twice for divorce). Prior to Admission medications as of 04/23/18 0919 Medication Sig Last Dose Taking aspirin, enteric coated (ECOTRIN) 325 mg EC tablet Take 1 tablet by mouth once daily. Take with food. Yes ranitidine (ZANTAC) 150 mg tablet Take 1 tablet by mouth twice daily. Yes pantoprazole DR (PROTONIX) 40 mg tablet Take 1 tablet by mouth twice daily. Take on empty stomach, 1/2 hr before meal. Yes montelukast (SINGULAIR) 10 mg tablet Take 1 tablet by mouth daily at bedtime. Per respiratory therapy aide Yes hydrOXYzine HCl (ATARAX) 25 mg tablet Take 1 tablet by mouth twice daily. Per respiratory therapy aide Yes COMPOUNDED PRESCRIPTION One rollator walker with wheels, hand brakes and seat bench, Dx: M51.27, M54.16, M54.42, Z91.81 and R26.89 Yes levothyroxine (SYNTHROID) 50 mcg tablet Take 1 tablet by mouth once daily. Take on empty stomach. For thyroid. Yes albuterol HFA (PROVENTIL HFA, VENTOLIN HFA) 90 mcg/actuation inhaler Inhale 2 Puffs as instructed every 6 hours as needed. Yes EPINEPHrine (EPIPEN) 0.3 mg/0.3 mL auto-injector Inject 0.3 mL intramuscularly as needed. Yes SUMAtriptan (IMITREX) 100 mg tablet One table by mouth with onset of headache. Can repeat in and hour but only 2 tabs in 24 hrs. Yes Medication Comments documented by Elizabeth Sheikh Ma on 03/17/2018 at 1420. Allergy shots - ALLERGIES Allergen Reactions - Laguna Swelling - Ciprofloxacin Other: See Comments Chest tightness - Dust Swelling - Gabapentin Swelling Throat swelling. - Insect Parts Swelling, Shortness of Breath, Myalgia Pt not sure what bit her but developed redness,difficulty swallowing and swelling of face and neck - Pollen Swelling - Morphine Vomiting REVIEW OF SYSTEMS: PAIN ASSESSMENT: General: No weight loss, malaise or fevers. Neuro: Postive for Headaches migraines- on rx, back pain with radiculopathy and left leg weakness, uses walker, Negative for TIA's Seizures Stroke-residual deficit Respiratory: Positive for Asthma, Mild COPD, recently using inhaler with cold temps and being outside, Negative for Home O2, Tobacco Use, URI < 2 weeks lung nodule being watched. Cardiovascular: Positive for: PVD; recent stent in common iliac in 03/04, Negative for Recent [place], Arrhythmia, Chest Pain, Valvular Heart Disease, DVT/PE + May thurner syndrome per chart DR Proctor, Pt denies DVT. Pt takes ASA 325. GI: Positive for GERD, Negative for PUD, Liver disease, Pancreatitis, Diverticulitis Some issues with stool elimination : No history of dysuria, frequency or incontinence,, stones or chronic kidney disease RECRUITING INTERN: Negative for abnormal vaginal bleeding, abnormal vaginal discharge. : N/A, No LMP recorded. Patient has had a hysterectomy. Endocrine: Hypothyroidism, no DM Hematology: No history of bleeding or clotting disorder. Pt is not taking anti-coagulation or platelet medications. No history of hematological symptoms or problems. Oncology: No history of CA metastasis, chemo within 30 days, or radiotherapy within 90 days. Has not lost 10% of body wt in 6 months. No history of oncological symptoms or problems. Psych: No history of psychiatric symptoms or problems. Musculoskeletal: Back pain and see HPI Skin: Negative for lesions, rash and itching. Objective PHYSICAL EXAM: VITALS: BP 108/72 Pulse 76 Temp (Src) 97.3 (Temporal Artery) Ht 5' 5 (1.65m) Wt 225 lb (102.1kg) SpO2 96% BMI 37.44 kg/(m2). General: Alert and oriented, No acute distress, Obese Skin: Normal color, no rash, no lesions. HEENT: EOM, pupils equal, round and reactive. Cardiovascular: Normal S1 AND S2, no rubs, murmurs or gallops. No JVD. Pulse regular. Lungs: Normal breath sounds, no wheezes or crackles. Abdomen: Soft, non-tender, no rigidity. Extremities: No deformity, no edema or tenderness, no joint swelling or clubbing. Neurological: left leg weakness and using walker Pulses: Carotid and radial pulses normal +2. Diagnostic tests reviewed for today's visit: Lab Value Units Date High Low HB 13.8 g/dL 02/24/2018 15.5 11.5 HCT 41.0 % 02/24/2018 46.0 36.0 WBC 6.34 k/uL 02/24/2018 11.00 3.70 PLT 381 k/uL 02/24/2018 400 150 NA 138 mmol/L 02/24/2018 144 136 K 4.5 mmol/L 02/24/2018 5.1 3.7 GLUC 100 mg/dL 02/24/2018 99 74 BUN 10 mg/dL 02/24/2018 21 7 CREAT 0.73 mg/dL 02/24/2018 0.96 0.58 PTSEC No results within date range. INR No results within date range. APTT No results within date range. ALT No results within date range. AST No results within date range. TBILI No results within date range. TSH No results within date range. Lab Value Units Date High Low HCGQT No results within date range. UHCG No results within date range. HCG, BODY* No results within date range. Lab Value Units Date High Low ABORHD No results within date range. ABSCREEN No results within date range. Hemoglobin A1C (%) Date Value 01/07/2018 5.1 12/07/2017 Unable to assay. No specimen received. Most recent labs Assessment ASSESSMENT Asthma/ COPD - Condition is stable Small mouth MP 4 full dentures- hyoid to mentum during neck extension 2 finger breaths GERD- on rx Migraines Recent common iliac stenting in 02/2018- May thurner syndrome per dr Ellington note- Denies h/o DVT/ PE- Pt to stay on ASA 81 mg daily Back pain with radiculopathy and left leg weakness- uses walker METS: Walk a block or two on level ground (2.75 METs) ASA Class: 3 ANESTHESIA FINDINGS: Intubation History: No history of difficult intubation Significant Anesthesia Considerations: None Airway Exam: General: Normal appearance obese Mallampati Score is CLASS IV ULBT: Class I - Lower incisors can bite the upper lip above the tuan line Neck: Normal appearance and function, Distance from hyoid to mentum during neck extension is at least 2 finger breaths Mouth: small mouth, Normal tongue size Dentition: Upper denture and Lower denture Airway History: No abnormal airway history STOP BANG Score: Criteria: BMI > 35 Age over 50 (57 year old) Score = 2 PLAN This patient is optimally prepared for surgery. CONSULTS: Patient does not require consults for optimization at this time. The Following Tests/Procedures Have Been Initiated: Labs not indicated per PACC protocol, EKG not indicated per PACC protocol Planned Anesthetic: Per anesthesia choice Instructions Given to Patient: Patient given verbal and written preop instructions and voices comprehension and compliance. SIGNATURE: Irena Vasquez PA-C PATIENT NAME: Yunier Patiño DATE: April 23, 2018 TIME: 9:12 AM PAGER/CONTACT #: CT CHEST WO IVCON Observed: 04/21/2018 Status: F Source: [place] 9:38 AM [facility] REPOSITORY * * *Final Report* * * DATE OF EXAM: Apr 21 2018 9:38AM [facility] 0541 - CT CHEST WO IVCON / PROCEDURE REASON: Solitary pulmonary nodule * * * * Physician Interpretation * * * * EXAMINATION: CHEST CT WITHOUT CONTRAST CLINICAL HISTORY: Solitary pulmonary nodule Technique: Spiral CT acquisition of the chest from the thoracic inlet to the upper abdomen without contrast. MQ: CTCWOR_4 CT Dose-Length Product: 446 mGy*cm CT Dose Reduction Employed: Automated exposure control(AEC) and iterative recon Comparison: 10/12/2017 CT abdomen RESULT: Limitations: None. Lines, tubes, and devices: None. Lung parenchyma and pleura: There are several small bilateral noncalcified pulmonary nodules, up to 10 mm in the superior segment of the right lower lobe alongside the great fissure on image 64. 6 mm nodule is in the left upper lobe on image 64. 6 mm pleural-based nodule posterolaterally on the lower left image 126. There are one or 2 other smaller adjacent left base nodules. 6 mm right lower lobe nodule is present laterally on image 81. Tiny nodule is seen posteriorly in the right upper lobe on image 43. Bilateral lung base nodules are not significantly changed. There are small nodules in both fissures which are probably fissural lymph nodes. No pleural effusions. No consolidation. Central airways appear open. Thoracic inlet, heart, and mediastinum: Small scattered mediastinal lymph nodes are seen on noncontrast study. Small pericardial effusion is perhaps slightly larger than previously. Bones and soft tissues: No destructive bone lesion. Chest wall is unremarkable. Upper abdomen: Cholecystectomy clips IMPRESSION: Bilateral pulmonary nodules are nonspecific but could be metastases, although Visualized lung bases nodules have not changed. PET scan may be useful. Small pericardial effusion Migratory Farm Hand[facility] Transcribe Date/Time: Apr 22 2018 4:09P Dictated by : ALMA DELIA COLEY MD This examination was interpreted and the report reviewed and electronically signed by: ALMA DELIA COLEY MD on Apr 22 2018 4:21PM EST [id number] Observed: 04/21/2018 Status: COMPLETED Source: [place] 9:25 AM [facility] REPOSITORY HNO ID: [id number] Author: Mago Campo Ct Service: (none) Author Type: (none) Type: Progress Notes Filed: 04/21/2018 9:25 AM Note Text: Radiology Service Progress Note PATIENT NAME: Yunier Patiño DATE OF SERVICE: April 21, 2018 TIME: 9:25 AM PATIENT IDENTITY VERIFICATION COMPLETED USING TWO (2) METHODS: Patient confirmed name verbally and Date of . PATIENT GENDER DATA: Female. status: : No status: NO. PATIENT RELEVANT IMPLANT DATA REVIEWED: Yes RADIOLOGY DEPARTMENT: CT; Exam(s) Completed: Chest PERIPHERAL IV DATA: Not applicable SIGNED BY: Mago Campo Ct April 21, 2018 9:25 AM PROGRESS Observed: 04/15/2018 Status: COMPLETED Source: [place] 8:55 PM [facility] REPOSITORY HNO ID: [id number] Author: Gabby Velasco Tenzin Service: (none) Author Type: Physician Type: Progress Notes Filed: 04/17/2018 1:02 PM Note Text: Yunier Ayde Robersonmayra 1960 REFERRING PHYSICIAN: Ольга Bcukner(Christiane)* CHIEF COMPLAINT: Consult (bloating, diarrhea) HPI: The patient is a 57 year old female presents with complaint of abdominal bloating and changes in bowel habits. Underwent EGD/colonoscopy 04/07/18 FINAL DIAGNOSIS 1. Duodenum, second portion, biopsy (A) - Duodenal mucosa with no diagnostic alteration. 2. Duodenum, bulb, biopsy (B) - Duodenal mucosa with focal gastric surface foveolar metaplasia. 3. Stomach, antrum, biopsy (C) - Chronic inactive gastritis. - See comment. 4. Esophagogastric junction, biopsy (D) - Inflamed cardiac- type mucosa, negative for intestinal metaplasia or dysplasia. 5. Colon, random, biopsy (E) - Colonic mucosa with no diagnostic alteration. - No evidence of lymphocytic colitis or collagenous colitis. H pylori negative. PAST MEDICAL HISTORY - Chronic obstructive pulmonary disease (HCC) 01/03/2016 Patient reports diagnosis by CT - COPD (chronic obstructive pulmonary disease) (HCC) - Ex-smoker 10/19/2017 Started around 10-11 yo up to 1/2 PPD and quite 2008 - GERD (gastroesophageal reflux disease) - Headache(784.0) starting 47 years old - Hypothyroidism 06/11/2012 - Mild persistent asthma without complication 02/25/2018 PAST SURGICAL HISTORY - CHOLECYSTECTOMY 07/17/2015 - COLONOSCOP W/ OR W/O BRSH SPEC 09/13/13 few diverticula, repeat 10 yrs - EGD W/O [facility] SPECIMEN W/BX 09/13/13 gastritis - FECAL OCCULT BLOOD TEST 07/16/2017 negative - HEMORRHOIDECTOMY 07/28/2017 - LIGATION OF HEMORRHOID(S) 05/05/2016 - PAST SURGICAL HISTORY OF - PAST SURGICAL HISTORY OF breast cyst, right? - PAST SURGICAL HISTORY OF Left 02/2018 common iliac stent - REMOVAL OF TONSILS,<14 Y/O - REVISE [facility]IAN N/CARPAL TUNNEL SURG 05/26/12 Carpal tunnel decomp-bilateral - TOOTH EXTRACTION ~2009 all teeth extracted - TOTAL ABDOM HYSTERECTOMY 1994 [place], ovaries? menorrhagia, benign PAST INJURIES Denies head injuries, had left ankle fracture recently Current Outpatient Prescriptions: aspirin, enteric coated (ECOTRIN) 325 mg EC tablet Take 1 tablet by mouth once daily. Take with food. ranitidine (ZANTAC) 150 mg tablet Take 1 tablet by mouth twice daily. pantoprazole DR (PROTONIX) 40 mg tablet Take 1 tablet by mouth twice daily. Take on empty stomach, 1/2 hr before meal. montelukast (SINGULAIR) 10 mg tablet Take 1 tablet by mouth daily at bedtime. Per respiratory therapy aide hydrOXYzine HCl (ATARAX) 25 mg tablet Take 1 tablet by mouth twice daily. Per respiratory therapy aide COMPOUNDED PRESCRIPTION One rollator walker with wheels, hand brakes and seat bench, Dx: M51.27, M54.16, M54.42, Z91.81 and R26.89 cholecalciferol, Vitamin D3, (VITAMIN D3) 50,000 unit cap capsule Take 1 capsule by mouth once each week. levothyroxine (SYNTHROID) 50 mcg tablet Take 1 tablet by mouth once daily. Take on empty stomach. For thyroid. albuterol HFA (PROVENTIL HFA, VENTOLIN HFA) 90 mcg/actuation inhaler Inhale 2 Puffs as instructed every 6 hours as needed. EPINEPHrine (EPIPEN) 0.3 mg/0.3 mL auto-injector Inject 0.3 mL intramuscularly as needed. SUMAtriptan (IMITREX) 100 mg tablet One table by mouth with onset of headache. Can repeat in and hour but only 2 tabs in 24 hrs. peg 3350-Electrolytes (GOLYTELY) 236-22.74-6.74 -5.86 gram suspension Take 4,000 mL by mouth one time only for 1 dose. Refer to printed prep instructions from your doctor. ALLERGIES: Laguna; Ciprofloxacin; Dust; Gabapentin; Insect Parts; Pollen; Morphine PERSONAL HISTORY: Social History Marital status: Legally Spouse name: Years of education: Number of children: 2 Occupational History Occupation Employer [employer] Social History Main Topics Smoking status: Former Smoker Packs/day: 0.50 Years: 20.00 Types: Cigarettes Quit date: 05/18/2008 Smokeless tobacco: Never Used Alcohol use: No Drug use: No Sexual activity: Yes Partners with: Male control/protection: Surgical Social History Narrative from her since 1990 ( did not show twice for divorce). FAMILY HISTORY - Ischemic Heart Disease Father 68 [place] 72, had CAD dx'd in his early 50s, also had prostate cancer and diverticular disease - Alzheimer's Disease Maternal Grandmother - Lipids Mother also thyroid problems - Thyroid Sister REVIEW OF SYSTEMS: General: The patient denies fatigue, denies weight loss, NOTES weight gain, denies feeling hot, and denies feelings of cold. Eyes: The patient denies glaucoma, denies eye injury/surgery, wears glasses or contacts. Ear/Nose/Throat: The patient NOTES allergies, denies hayfever, denies ear infections, and denies bloody noses. Cardiovascular: The patient denies chest pain, denies heart disease, denies high blood pressure,denies cardiac stent, denies prior heart attack, denies irregular heart beat, denies high cholesterol, denies poor circulation, denies heart failure, other cardiac issues, denies claudication, denies cold feet, denies peripheral arterial stent. Respiratory: The patient denies tuberculosis, denies pneumonia, denies frequent cough, denies pulmonary embolism, denies shortness of breath, and denies coughing up blood. Gastrointestinal: The patient denies difficulty swallowing, NOTES acid reflux, denies ulcers, denies vomiting, denies jaundice/hepatitis, NOTES gallbladder problems, denies black or tarry stools, NOTES hemorrhoids, NOTES bleeding from rectum, denies diverticulitis, denies constipation, denies diarrhea, denies loss of stool control, and denies hernias. Kidney/Bladder: The patient denies kidney stones, denies urine infections, and denies bloody urine. Skin: The patient denies a history of skin cancer, denies bleeding/changing moles, and denies a history of skin rash. Neurologic: The patient denies a history of epilepsy/convulsions, NOTES headaches, denies head/spinal injuries, and denies stroke/TIA. Psychiatric: The patient denies psychiatric medications, denies depression, and denies voices, denies substance abuse. Endocrine: The patient NOTES thyroid disorders, denies diabetes, and NOTES hormonal problems. Hematologic: The patient denies a history of bruising, denies bleeding, and denies anemia, denies blood clots. Infections: The patient NOTES a history of measles and mumps, denies rheumatic fever, and denies sexually transmitted diseases. Musculoskeletal: The patient denies back pain/injury, NOTES back problems, NOTES sciatica, denies knee/foot trouble, NOTES arthritis, or denies gout. PHYSICAL EXAMINATION: General: The patient is 57 year old female, well nourished, well hydrated in no acute distress. The patient is oriented to time, place, and person. VITALS: Blood pressure 124/86, pulse 76, weight 101.2 kg (223 lb). Body mass index is 37.98 kg/m?. Head ? Normocephalic. EOM intact with sclera clear and no icterus noted. Mouth with mucus membranes moist. Neck - supple with no jugular venous distention noted. Trachea is midline. Lungs ? no labored breathing noted, such as retractions. Abdomen ? benign. Skin ? normal skin integrity. Neurological ? gait normal, no focal deficits noted. Psych ? calm and appropriate IMPRESSION: chronic gastritis, probable irritable bowel syndrome PLAN: I have discussed the above with the patient. I have discussed options for alleviation of the patient's symptoms. They are the following: Regular exercise, avoiding large meals before bedtime, sleeping with HOB elevated, frequent small meals instead of large meals, weight control, use of BEANO, drinking plenty of water (patient states that she is already doing this, adequate fiber in diet - 25-30 grams per day I have answered all questions to the patient?s satisfaction and the patient has no further questions. Follow up with me as per needed. Patient to return to her PCP for medical care. Greater than 50% of this patient encounter was spent in face to face discussion with patient - total time spent with patient 10 mincatherinerob CNOV Observed: 04/14/2018 Status: COMPLETED Source: [place] 1:40 PM [facility] REPOSITORY Office Visit (GENSWS) YUNIER PATIÑO ([id number]) 1960 F Date Time Provider Department 04/14/18 1:40 PM GABBY DAVE During your visit today, we recorded the following information about you: Gabby Dave MD 04/14/2018 1:51 PM Signed BEANO get this over the counter Drink of water - you already are Increase fiber in your diet - 25-30 grams per day Gabby Dave MD 04/17/2018 1:02 PM Signed Yunier Patiño 1960 REFERRING PHYSICIAN: Ольга Buckner(Christiane)* CHIEF COMPLAINT: Consult (bloating, diarrhea) HPI: The patient is a 57 year old female presents with complaint of abdominal bloating and changes in bowel habits. Underwent EGD/colonoscopy 04/07/18 FINAL DIAGNOSIS 1. Duodenum, second portion, biopsy (A) - Duodenal mucosa with no diagnostic alteration. 2. Duodenum, bulb, biopsy (B) - Duodenal mucosa with focal gastric surface foveolar metaplasia. 3. Stomach, antrum, biopsy (C) - Chronic inactive gastritis. - See comment. 4. Esophagogastric junction, biopsy (D) - Inflamed cardiac- type mucosa, negative for intestinal metaplasia or dysplasia. 5. Colon, random, biopsy (E) - Colonic mucosa with no diagnostic alteration. - No evidence of lymphocytic colitis or collagenous colitis. H pylori negative. PAST MEDICAL HISTORY - Chronic obstructive pulmonary disease (HCC) 01/03/2016 Patient reports diagnosis by CT - COPD (chronic obstructive pulmonary disease) (HCC) - Ex-smoker 10/19/2017 Started around 10-11 yo up to 1/2 PPD and quite 2008 - GERD (gastroesophageal reflux disease) - Headache(784.0) starting 47 years old - Hypothyroidism 06/11/2012 - Mild persistent asthma without complication 02/25/2018 PAST SURGICAL HISTORY - CHOLECYSTECTOMY 07/17/2015 - COLONOSCOP W/ OR W/O BRSH SPEC 09/13/13 few diverticula, repeat 10 yrs - EGD W/O BRS SPECIMEN W/BX 09/13/13 gastritis - FECAL OCCULT BLOOD TEST 07/16/2017 negative - HEMORRHOIDECTOMY 07/28/2017 - LIGATION OF HEMORRHOID(S) 05/05/2016 - PAST SURGICAL HISTORY OF - PAST SURGICAL HISTORY OF breast cyst, right? - PAST SURGICAL HISTORY OF Left 02/2018 common iliac stent - REMOVAL OF TONSILS,<14 Y/O - REVISE MEDIAN N/CARPAL TUNNEL SURG 05/26/12 Carpal tunnel decomp-bilateral - TOOTH EXTRACTION ~2009 all teeth extracted - TOTAL ABDOM HYSTERECTOMY 1994 KENNEDY, ovaries? menorrhagia, benign PAST INJURIES Denies head injuries, had left ankle fracture recently Current Outpatient Prescriptions: aspirin, enteric coated (ECOTRIN) 325 mg EC tablet Take 1 tablet by mouth once daily. Take with food. ranitidine (ZANTAC) 150 mg tablet Take 1 tablet by mouth twice daily. pantoprazole DR (PROTONIX) 40 mg tablet Take 1 tablet by mouth twice daily. Take on empty stomach, 1/2 hr before meal. montelukast (SINGULAIR) 10 mg tablet Take 1 tablet by mouth daily at bedtime. Per respiratory therapy aide hydrOXYzine HCl (ATARAX) 25 mg tablet Take 1 tablet by mouth twice daily. Per respiratory therapy aide COMPOUNDED PRESCRIPTION One rollator walker with wheels, hand brakes and seat bench, Dx: M51.27, M54.16, M54.42, Z91.81 and R26.89 cholecalciferol, Vitamin D3, (VITAMIN D3) 50,000 unit cap capsule Take 1 capsule by mouth once each week. levothyroxine (SYNTHROID) 50 mcg tablet Take 1 tablet by mouth once daily. Take on empty stomach. For thyroid. albuterol HFA (PROVENTIL HFA, VENTOLIN HFA) 90 mcg/actuation inhaler Inhale 2 Puffs as instructed every 6 hours as needed. EPINEPHrine (EPIPEN) 0.3 mg/0.3 mL auto-injector Inject 0.3 mL intramuscularly as needed. SUMAtriptan (IMITREX) 100 mg tablet One table by mouth with onset of headache. Can repeat in and hour but only 2 tabs in 24 hrs. peg 3350-Electrolytes (GOLYTELY) 236-22.74-6.74 -5.86 gram suspension Take 4,000 mL by mouth one time only for 1 dose. Refer to printed prep instructions from your doctor. ALLERGIES: [place]una; Ciprofloxacin; Dust; Gabapentin; Insect Parts; Pollen; Morphine PERSONAL HISTORY: Social History Marital status: Legally Spouse name: Years of education: Number of children: 2 Occupational History Occupation Employer Comment [employer] Social History Main Topics Smoking status: Former Smoker Packs/day: 0.50 Years: 20.00 Types: Cigarettes Quit date: 05/18/2008 Smokeless tobacco: Never Used Alcohol use: No Drug use: No Sexual activity: Yes Partners with: Male control/protection: Surgical Social History Narrative from her since 1990 ( did not show twice for divorce). FAMILY HISTORY - Ischemic Heart Disease Father 68 [place] 72, had CAD dx'd in his early 50s, also had prostate cancer and diverticular disease - Alzheimer's Disease Maternal Grandmother - Lipids Mother also thyroid problems - Thyroid Sister REVIEW OF SYSTEMS: General: The patient denies fatigue, denies weight loss, NOTES weight gain, denies feeling hot, and denies feelings of cold. Eyes: The patient denies glaucoma, denies eye injury/surgery, wears glasses or contacts. Ear/Nose/Throat: The patient NOTES allergies, denies hayfever, denies ear infections, and denies bloody noses. Cardiovascular: The patient denies chest pain, denies heart disease, denies high blood pressure,denies cardiac stent, denies prior heart attack, denies irregular heart beat, denies high cholesterol, denies poor circulation, denies heart failure, other cardiac issues, denies claudication, denies cold feet, denies peripheral arterial stent. Respiratory: The patient denies tuberculosis, denies pneumonia, denies frequent cough, denies pulmonary embolism, denies shortness of breath, and denies coughing up blood. Gastrointestinal: The patient denies difficulty swallowing, NOTES acid reflux, denies ulcers, denies vomiting, denies jaundice/hepatitis, NOTES gallbladder problems, denies black or tarry stools, NOTES hemorrhoids, NOTES bleeding from rectum, denies diverticulitis, denies constipation, denies diarrhea, denies loss of stool control, and denies hernias. Kidney/Bladder: The patient denies kidney stones, denies urine infections, and denies bloody urine. Skin: The patient denies a history of skin cancer, denies bleeding/changing moles, and denies a history of skin rash. Neurologic: The patient denies a history of epilepsy/convulsions, NOTES headaches, denies head/spinal injuries, and denies stroke/TIA. Psychiatric: The patient denies psychiatric medications, denies depression, and denies voices, denies substance abuse. Endocrine: The patient NOTES thyroid disorders, denies diabetes, and NOTES hormonal problems. Hematologic: The patient denies a history of bruising, denies bleeding, and denies anemia, denies blood clots. Infections: The patient NOTES a history of measles and mumps, denies rheumatic fever, and denies sexually transmitted diseases. Musculoskeletal: The patient denies back pain/injury, NOTES back problems, NOTES sciatica, denies knee/foot trouble, NOTES arthritis, or denies gout. PHYSICAL EXAMINATION: General: The patient is 57 year old female, well nourished, well hydrated in no acute distress. The patient is oriented to time, place, and person. VITALS: Blood pressure 124/86, pulse 76, weight 101.2 kg (223 lb). Body mass index is 37.98 kg/m?. Head ? Normocephalic. EOM intact with sclera clear and no icterus noted. Mouth with mucus membranes moist. Neck - supple with no jugular venous distention noted. Trachea is midline. Lungs ? no labored breathing noted, such as retractions. Abdomen ? benign. Skin ? normal skin integrity. Neurological ? gait normal, no focal deficits noted. Psych ? calm and appropriate IMPRESSION: chronic gastritis, probable irritable bowel syndrome PLAN: I have discussed the above with the patient. I have discussed options for alleviation of the patient's symptoms. They are the following: Regular exercise, avoiding large meals before bedtime, sleeping with HOB elevated, frequent small meals instead of large meals, weight control, use of BEANO, drinking plenty of water (patient states that she is already doing this, adequate fiber in diet - 25-30 grams per day I have answered all questions to the patient?s satisfaction and the patient has no further questions. Follow up with me as per needed. Patient to return to her PCP for medical care. Greater than 50% of this patient encounter was spent in face to face discussion with patient - total time spent with patient 10 mintues Referring Provider: HANY COTA [[id number]] Allergies As of Date: 04/14/2018 Noted Allergy Reaction LAGUNA 06/08/2012 7 - Swelling CIPROFLOXACIN 12/17/2015 14 - Other: See Comments Comments: Chest tightness DUST 06/08/2012 7 - Swelling GABAPENTIN 10/14/2017 7 - Swelling Comments: Throat swelling. INSECT PARTS 03/26/2016 7 - Swelling 12 - Shortness of Breath 17 - Myalgia Comments: Pt not sure what bit her but developed redness,difficulty swallowing and swelling of face and neck POLLEN 06/08/2012 7 - Swelling MORPHINE 06/08/2012 11 - Vomiting Date Reviewed: 04/14/2018 Reviewed by: Bubba Pérez LPN - Fully Assessed Reason for Visit: Established Patient [175] Cmt: F/u EGD/ Colonoscopy Primary Visit Diagnosis:Irritable bowel syndrome without diarrhea [K58.9] Other Visit Diagnosis:Chronic superficial gastritis without bleeding [K29.30] Prescriptions as of 04/14/2018 Sig: ASPIRIN 325 MG TABLET,DELAYED* Take 1 tablet by mouth once d* RANITIDINE 150 MG TABLET Take 1 tablet by mouth twice * PANTOPRAZOLE 40 MG TABLET,DEL* Take 1 tablet by mouth twice * MONTELUKAST 10 MG TABLET Take 1 tablet by mouth daily * HYDROXYZINE HCL 25 MG TABLET Take 1 tablet by mouth twice * COMPOUNDED PRESCRIPTION One rollator walker with whee* CHOLECALCIFEROL (VITAMIN D3) * Take 1 capsule by mouth once * LEVOTHYROXINE 50 MCG TABLET Take 1 tablet by mouth once d* ALBUTEROL SULFATE HFA 90 MCG/* Inhale 2 Puffs as instructed * EPINEPHRINE 0.3 MG/0.3 ML INJ* Inject 0.3 mL intramuscularly* SUMATRIPTAN 100 MG TABLET One table by mouth with onset* Problem List As Of Date 04/14/2018 Noted Resolved Migraine without aura and without status migrai* More... More... Acquired hypothyroidism [E03.9] INVALID FOR* More... More... Encounter for screening for diabetes mellitus [*INVALID FOR* Encounter for screening for cardiovascular diso*INVALID FOR* Encounter for gynecological examination without*INVALID FOR* More... Chronic obstructive pulmonary disease (HCC) [J4*INVALID FOR* More... Hemorrhoids, internal, with bleeding [K64.8] INVALID FOR* Well adult exam [Z00.00] INVALID FOR* More... More... Chronic bilateral low back pain with bilateral *INVALID FOR* Radiculopathy, lumbar region [M54.16] INVALID FOR* Lumbago-sciatica due to displacement of lumbar *INVALID FOR* Ex-smoker [Z87.891] INVALID FOR* More... Lung nodule [R91.1] INVALID FOR* More... Mild persistent asthma without complication [J4*INVALID FOR* May-Thurner syndrome [I87.1] INVALID FOR* Primary osteoarthritis of both first carpometac*INVALID FOR* More... Other instructions from your clinician: BEANO get this over the counter Drink of water - you already are Increase fiber in your diet - 25-30 grams per day Encounter Status:Closed by MD GABBY DAVE on 04/17/18 L/S SPINE MIN 4 Observed: 04/13/2018 Status: F Source: [place] VIEWS 1:[address] [facility] REPOSITORY [facility] Imaging Services [address] [place] [address] L/S Spine Min 4 Views MR#: [id number] Acct: [id number] Name: YUNIER PATIÑO Rep #: [id number] : 1960 F 57 From: Oc Carl DO PCP: Hany Cota MD Status: REG CLI Study: L/S Spine Min 4 Views Date of Exam: 04/13/18 Exam# [id number] Ordering Dr: Dara Christiansen MD STUDY: X-RAY - LUMBAR SPINE REASON FOR EXAM: Female, 57 years old. Low back pain TECHNIQUE: 4 view(s) of the lumbar spine were obtained. Weightbearing with extension and flexion views COMPARISON: None FINDINGS: Normal lumbar lordosis. There is no substantial scoliosis. There is a normal alignment of the vertebrae. Endplate degenerative changes with disc space height loss noted at L4-5 and L5-S1. Questionable L4 and L5 bilateral pars defects, chronic in nature. The soft tissue structures are unremarkable. Left iliac stent is noted. RAD/L/S Spine Min 4 Views IMPRESSION: Degenerative changes without acute findings Electronically Signed: Oc Carl DO at 13:42 EST Tel , Service support , CC: Dara Christiansen MD; Hany Cota MD [employer]: Signed NURSING PROG Observed: 04/07/2018 Status: COMPLETED Source: [place] 12:50 PM [facility] REPOSITORY HNO ID: [id number] Author: Shilpi PlattRn) SANJANA Pantoja Service: Nursing Author Type: Registered Nurse Type: Nursing Progress Note Filed: 04/07/2018 12:51 PM Note Text: Patient did not experience a fall prior to discharge. Patient did not experience a burn prior to discharge. Shilpi Pantoja RN NURSING PROG Observed: 04/07/2018 Status: COMPLETED Source: [place] 12:11 PM [facility] REPOSITORY HNO ID: [id number] Author: Lyssa PlattRn) SANJANA Peck Service: Nursing Author Type: Registered Nurse Type: Nursing Progress Note Filed: 04/07/2018 12:12 PM Note Text: Patient did not experience a fall within the Intraoperative area. Patient did not experience a burn within the Intraoperative area. Lyssa Peck RN NURSING PROG Observed: 04/07/2018 Status: COMPLETED Source: [place] 11:17 AM [facility] REPOSITORY HNO ID: [id number] Author: Reyna PlattRn) SANJANA Huffman Service: (none) Author Type: Registered Nurse Type: Nursing Progress Note Filed: 04/07/2018 11:41 AM Note Text: [facility] PRE-OP NURSING HAND OFF NOTE SBAR Hand off given to Lyssa Peck RN. Hand off was communicated verbally and at the patient's bedside and all questions were answered. FALLS/SHERMAN Patient did not experience a fall within the Preoperative area. Patient did not experience a burn within the Preoperative area. Reyna Huffman RN PT ED Observed: 04/07/2018 Status: COMPLETED Source: [place] 10:25 AM [facility] REPOSITORY HNO ID: [id number] Author: Shilpi PlattRn) SANJANA Pantoja Service: Nursing Author Type: Registered Nurse Type: Patient Education Filed: 04/07/2018 10:27 AM Note Text: POST OP LEARNING RESPONSE INSTRUCTION PROVIDED TO: Patient and Daughter METHOD OF INSTRUCTION: Written instruction - handouts Verbal instruction PATIENT / FAMILY RESPONSE: Verbalizes understanding of: INFECTION MANAGEMENT-Signs and symptoms of an infection and importance of contacting the physician PHYSICAL RESTRICTIONS-Physical restrictions and recommendations after discharge from the hospital POST-PROCEDURE INSTRUCTIONS-Correct actions to take to reduce post procedure complications PATIENT SAFETY PRINCIPLES WORSENING CONDITION-Signs and symptoms of a worsening condition that warrant a call to the physician FOLLOW-UP PLAN: Patient instructed to call with any further issues Follow up phone call. SUPPLEMENTAL MATERIAL: Procedure discharge instructions REFERRAL (RECOMMENDATION): None Electronically Signed By: Shilpi Pantoja RN In Department: AMBULATORY SURGERY PT ED Observed: 04/07/2018 Status: COMPLETED Source: [place] 10:25 AM [facility] REPOSITORY HNO ID: [id number] Author: Shilpi Avalos (Rn) SANJANA Pantoja Service: Nursing Author Type: Registered Nurse Type: Patient Education Filed: 04/07/2018 10:25 AM Note Text: PRE OP LEARNING ASSESSMENT PROCEDURE/SURGERY: GI PROCEDURES: Colonoscopy and EGD READINESS TO LEARN COGNITIVE ABILITY: Alert and oriented MOTIVATION TO LEARN: Eager FAMILY SUPPORT: High - Very involved in pt care PATIENT LEARNS BEST BY: Verbal Instruction FACTORS AFFECTING LEARNING: None PHYSICAL LIMITATIONS AFFECTING LEARNING: None Electronically Signed By: Shilpi Pantoja RN In Department: AMBULATORY SURGERY SURGICAL PATHOLOGY Observed: 04/07/2018 Status: C Source: [place] 12:00 AM [facility] REPOSITORY ADDENDUM PRESENT Specimen originated from [facility] Specimen #: [id number] Submitting Physician: GABBY DAVE MD FINAL DIAGNOSIS 1. Duodenum, second portion, biopsy (A) - Duodenal mucosa with no diagnostic alteration. 2. Duodenum, bulb, biopsy (B) - Duodenal mucosa with focal gastric surface foveolar metaplasia. 3. Stomach, antrum, biopsy (C) - Chronic inactive gastritis. - See comment. 4. Esophagogastric junction, biopsy (D) - Inflamed cardiac- type mucosa, negative for intestinal metaplasia or dysplasia. 5. Colon, random, biopsy (E) - Colonic mucosa with no diagnostic alteration. - No evidence of lymphocytic colitis or collagenous colitis. DTP/lbk 04/09/2018 COMMENT C. Immunohistochemical stain for Helicobacter pylori is pending and the result will be reported as an addendum. Lula Valente M.D. (Electronic Signature) SPECIMEN SUBMITTED A: SECOND PORTION DUODENUM, BIOPSY B: DUODENUM BULB, BIOPSY C: ANTRUM, BIOPSY H/H D: ESOPHAGOGASTRIC JUNCTION, BIOPSY E: RANDOM COLON, BIOPSY ADDENDUM Date Ordered: 04/13/2018 Date Reported: 04/13/2018 Given the background of chronic gastritis a Helicobacter pylori immunostain was performed on block C and is negative for Helicobacter pylori organisms. Laboratory Developed Test (LDT) Disclaimer: Positive and negative controls stain appropriately. Performance characteristics of immunohistochemical, immunofluorescent and chromogenic in-situ hybridization tests have been determined by [facility]'s [facility] Pathology and Laboratory Medicine [place] ([facility]) in a manner consistent with CLIA requirements. One or more of these tests have not been cleared or approved by the FDA. [facility] is regulated under CLIA as qualified to perform high-complexity testing. These tests are used for clinical purposes. They should not be regarded as investigational or for research. DTP/dcr 04/13/2018 Addendum Pathologist: Lula Valente M.D. Electronic Signature CLINICAL DATA R14.0 GROSS DESCRIPTION A. Received in formalin are two pieces of gilbert, soft tissue aggregating to 0.4 x 0.2 x 0.2 cm. Totally submitted in one cassette. B. Received in formalin are two pieces of gilbert, soft tissue aggregating to 0.6 x 0.2 x 0.2 cm. Totally submitted in one cassette. C. Received in formalin is one piece of gilbert, soft tissue measuring 0.4 x 0.2 x 0.2 cm. Totally submitted in one cassette. D. Received in formalin are two pieces of gilbert, soft tissue aggregating to 0.6 x 0.2 x 0.2 cm. Totally submitted in one cassette. E. Received in formalin are multiple pieces of gilbert, soft tissue aggregating to 4.3 x 0.2 x 0.2 cm. Totally submitted in three cassettes. Gross examination performed at [facility], [address] [place] [address] 04/08/2018 12:25:01 AM Date of Report: 04/09/2018 Date of Procedure: 04/07/2018 Date of Receipt: 04/07/2018 Submitted by: GABBY DAVE MD Location: [facility] Diagnostic interpretation performed at [place] [address]. HISTORY PHYSICAL Observed: 04/06/2018 Status: COMPLETED Source: [place] 9:06 PM [facility] REPOSITORY O ID: [id number] Author: Gabby Dave Service: (none) Author Type: Physician Type: HANDP Filed: 04/06/2018 9:06 PM Note Text: Yunier Patiño 1960 ? REFERRING PHYSICIAN: Ольга Buckner(Christiane)* ? CHIEF COMPLAINT: Consult (bloating, diarrhea) ? HPI: The patient is a 57 year old female presents with complaint of abdominal bloating and changes in bowel habits. Also notes bloody stools and fecal urgency. Denies acid indigestion Complains of abdominal bloating - primarily She feels like she is splitting apart, because of the abdominal pain/bloating. Denies hematemesis. Complaint of upper abdominal pain/tenderness, noted for the past 2 years. This sometimes cause her to have difficulty breathing. Has fecal urgency, however, when is sitting on toilet, feels like she has to push it out This has been going on for about a year. Had EGD/colonoscopy in 2013. Diverticulosis noted. Chronic inactive gastritis noted. Had hemorrhoids surgery x 2. Had aortic stent placed on March 10. No colon cancer in the family. Notes first stool is hard and then subsequent bowel movements are loose. Notes occasional blood in stools. She feels that she is imminent danger of a catastrophic medical problem. ? ? PAST MEDICAL HISTORY Diagnosis Date - Chronic obstructive pulmonary disease (HCC) 01/03/2016 ? Patient reports diagnosis by CT - COPD (chronic obstructive pulmonary disease) (HCC) ? - Ex-smoker 10/19/2017 ? Started around 10-11 yo up to 14 PPD and quite 2008 - GERD (gastroesophageal reflux disease) ? - Headache(784.0) ? ? starting 47 years old - Hypothyroidism 06/11/2012 - Mild persistent asthma without complication 02/25/2018 ? PAST SURGICAL HISTORY Procedure Laterality Date - CHOLECYSTECTOMY ? 07/17/2015 ? - COLONOSCOP W/ OR W/O BRS SPEC ? 09/13/13 ? few diverticula, repeat 10 yrs - EGD W/O [facility] SPECIMEN W/BX ? 09/13/13 ? gastritis - FECAL OCCULT BLOOD TEST ? 07/16/2017 ? negative - HEMORRHOIDECTOMY ? 07/28/2017 ? - LIGATION OF HEMORRHOID(S) ? 05/05/2016 ? - PAST SURGICAL HISTORY OF ? ? ? - PAST SURGICAL HISTORY OF ? ? ? breast cyst, right? - PAST SURGICAL HISTORY OF Left 02/2018 ? common iliac stent - REMOVAL OF TONSILS,<14 Y/O ? ? ? Tonsillectomy - REVISE MEDIAN N/CARPAL TUNNEL SURG ? 05/26/12 ? Carpal tunnel decomp-bilateral - TOOTH EXTRACTION ? ~2009 ? all teeth extracted - TOTAL ABDOM HYSTERECTOMY ? 1994 ? KENNEDY, ovaries? menorrhagia, benign ? ? PAST INJURIES Denies head injuries, had left ankle fracture recently ? ? Current Outpatient Prescriptions: aspirin, enteric coated (ECOTRIN) 325 mg EC tablet Take 1 tablet by mouth once daily. Take with food. ranitidine (ZANTAC) 150 mg tablet Take 1 tablet by mouth twice daily. pantoprazole DR (PROTONIX) 40 mg tablet Take 1 tablet by mouth twice daily. Take on empty stomach, 1/2 hr before meal. montelukast (SINGULAIR) 10 mg tablet Take 1 tablet by mouth daily at bedtime. Per respiratory therapy aide hydrOXYzine HCl (ATARAX) 25 mg tablet Take 1 tablet by mouth twice daily. Per respiratory therapy aide COMPOUNDED PRESCRIPTION One rollator walker with wheels, hand brakes and seat bench, Dx: M51.27, M54.16, M54.42, Z91.81 and R26.89 cholecalciferol, Vitamin D3, (VITAMIN D3) 50,000 unit cap capsule Take 1 capsule by mouth once each week. levothyroxine (SYNTHROID) 50 mcg tablet Take 1 tablet by mouth once daily. Take on empty stomach. For thyroid. albuterol HFA (PROVENTIL HFA, VENTOLIN HFA) 90 mcg/actuation inhaler Inhale 2 Puffs as instructed every 6 hours as needed. EPINEPHrine (EPIPEN) 0.3 mg/0.3 mL auto-injector Inject 0.3 mL intramuscularly as needed. SUMAtriptan (IMITREX) 100 mg tablet One table by mouth with onset of headache. Can repeat in and hour but only 2 tabs in 24 hrs. peg 3350-Electrolytes (GOLYTELY) 236-22.74-6.74 -5.86 gram suspension Take 4,000 mL by mouth one time only for 1 dose. Refer to printed prep instructions from your doctor. ? ? ALLERGIES: [place]; Ciprofloxacin; Dust; Gabapentin; Insect Parts; Pollen; Morphine ? PERSONAL HISTORY: Social History Marital status: Legally Spouse name: Years of education: Number of children: 2 Occupational History Occupation Employer [employer] Social History Main Topics Smoking status: Former Smoker Packs/day: 0.50 Years: 20.00 Types: Cigarettes Quit date: 05/18/2008 Smokeless tobacco: Never Used Alcohol use: No Drug use: No Sexual activity: Yes Partners with: Male control/protection: Surgical Social History Narrative from her since 1990 ( did not show twice for divorce). ? FAMILY HISTORY Problem Relation Age of Onset - Ischemic Heart Disease Father 68 ? [place] 72 - Prostate Cancer Father ? - Coronary Artery Disease Father ? ? early 50's - other (ischemic bowel disease) Father ? ? ?diverticulosis - Alzheimer's Disease Maternal Grandmother ? - Lipids Mother ? - Thyroid Mother ? - Thyroid Sister ? ? ? REVIEW OF SYSTEMS: General: The patient denies fatigue, denies weight loss, NOTES weight gain, denies feeling hot, and denies feelings of cold. Eyes: The patient denies glaucoma, denies eye injury/surgery, wears glasses or contacts. Ear/Nose/Throat: The patient NOTES allergies, denies hayfever, denies ear infections, and denies bloody noses. Cardiovascular: The patient denies chest pain, denies heart disease, denies high blood pressure,denies cardiac stent, denies prior heart attack, denies irregular heart beat, denies high cholesterol, denies poor circulation, denies heart failure, other cardiac issues, denies claudication, denies cold feet, denies peripheral arterial stent. Respiratory: The patient denies tuberculosis, denies pneumonia, denies frequent cough, denies pulmonary embolism, denies shortness of breath, and denies coughing up blood. Gastrointestinal: The patient denies difficulty swallowing, NOTES acid reflux, denies ulcers, denies vomiting, denies jaundice/hepatitis, NOTES gallbladder problems, denies black or tarry stools, NOTES hemorrhoids, NOTES bleeding from rectum, denies diverticulitis, denies constipation, denies diarrhea, denies loss of stool control, and denies hernias. Kidney/Bladder: The patient denies kidney stones, denies urine infections, and denies bloody urine. Skin: The patient denies a history of skin cancer, denies bleeding/changing moles, and denies a history of skin rash. Neurologic: The patient denies a history of epilepsy/convulsions, NOTES headaches, denies head/spinal injuries, and denies stroke/TIA. Psychiatric: The patient denies psychiatric medications, denies depression, and denies voices, denies substance abuse. Endocrine: The patient NOTES thyroid disorders, denies diabetes, and NOTES hormonal problems. Hematologic: The patient denies a history of bruising, denies bleeding, and denies anemia, denies blood clots. Infections: The patient NOTES a history of measles and mumps, denies rheumatic fever, and denies sexually transmitted diseases. Musculoskeletal: The patient denies back pain/injury, NOTES back problems, NOTES sciatica, denies knee/foot trouble, NOTES arthritis, or denies gout. ? PHYSICAL EXAMINATION: General: The patient is 57 year old female, well nourished, well hydrated in no acute distress. The patient is oriented to time, place, and person. VITALS: Blood pressure 124/86, pulse 76, weight 101.2 kg (223 lb). Body mass index is 37.98 kg/m?. Head ? Normocephalic. EOM intact with sclera clear and no icterus noted. Mouth with mucus membranes moist. Neck - supple with no jugular venous distention noted. Trachea is midline. Lungs ? clear to auscultation. Normal breath sounds. No rales/rhonchi/wheezing noted. No labored breathing noted, such as retractions. Heart ? normal S1 and S2 auscultated. No rubs/clicks/murmurs noted. Regular rate. Abdomen ? soft and benign. Normal bowel sounds. Extremities ? no calf tenderness noted. Skin ? normal skin integrity. Neurological ? gait normal, no focal deficits noted. Psych ? calm and appropriate ? ? Assessment IMPRESSION: abdominal bloating, changes in bowel habits ? PLAN: I have discussed the above with the patient. I have offered EGD and colonoscopy, possible biopsies for evaluation. I have explained the procedure to the patient. I have counseled the patient as to the risks of the procedure, including but not limited to: infection, bleeding, injury to any blood vessels/nerves, scar tissue, injury to any intraabdominal organs such as the liver/spleen, perforation of the GI tract, inability to complete the procedure, complications of anesthesia, etc. ? the patient understands. The patient wishes to proceed. ? I have answered all questions to the patient?s satisfaction and the patient has no further questions. ? ? Diagnoses: (R10.11, R10.12) Bilateral upper abdominal pain (primary encounter diagnosis) (R19.4) Altered bowel habits (R15.2) Fecal urgency (K92.1) Bloody stools Return to Clinic: The patient is instructed to follow-up with me after the procedure ? Gabby Dave MD HOSP Observed: 04/06/2018 Status: COMPLETED Source: [place] 12:00 AM [facility] REPOSITORY Patient:Yunier Patiño MRN: <[id number]> Height:5' 5(1.651 m) Weight:221 lb (100.245 kg) Outpatient Medications as of 04/07/18: aspirin, enteric coated (ECOTRIN) 325 mg EC tablet ranitidine (ZANTAC) [address] (PROTONIX) 40 mg tablet montelukast (SINGULAIR) 10 mg tablet hydrOXYzine HCl (ATARAX) 25 mg tablet COMPOUNDED PRESCRIPTION cholecalciferol, Vitamin D3, (VITAMIN D3) 50,000 unit cap capsule levothyroxine (SYNTHROID) 50 mcg tablet albuterol HFA (PROVENTIL HFA, VENTOLIN HFA) 90 mcg/actuation inhaler EPINEPHrine (EPIPEN) 0.3 mg/0.3 mL auto-injector SUMAtriptan (IMITREX) 100 mg tablet Admission/Clinic Administered Medications as of 04/07/18: lactated ringers infusion Problem List: Migraine without aura and without status migrainosus, not intractable [G43.009] Acquired hypothyroidism [E03.9] Encounter for screening for diabetes mellitus [Z13.1] Encounter for screening for cardiovascular disorders [Z13.6] Encounter for gynecological examination without abnormal finding [Z01.419] Chronic obstructive pulmonary disease (HCC) [J44.9] Hemorrhoids, internal, with bleeding [K64.8] Well adult exam [Z00.00] Chronic bilateral low back pain with bilateral sciatica [M54.42, M54.41, G89.29] Radiculopathy, lumbar region [M54.16] Lumbago-sciatica due to displacement of lumbar intervertebral disc [M51.27] Ex-smoker [Z87.891] Lung nodule [R91.1] Mild persistent asthma without complication [J45.30] May-Thurner syndrome [I87.1] Primary osteoarthritis of both first carpometacarpal joints [M18.0] Allergies: Laguna Ciprofloxacin Dust Gabapentin Insect Parts Pollen Morphine Date Verified: 04/07/18 Lab Values No results within the last 30 days for the following basenames: K,HCT Progress Notes ([facility]): Gabby Mccarty Ma 04/05/2018 1:27 PM Signed Please schedule patient for Right thumb CMC arthroplasty with possible ligament reconstruction and tendon interposition on 05/05/18. [place]ess [facility] 04/06/2018 3:00 PM Signed Surgical request completed, post ops made and mailed. Please place an OT order. Rama Diallo PA-C 04/06/2018 4:17 PM Signed OT order placed. Selam Burgess [facility] 04/07/2018 8:36 AM Signed Please contact the patient to schedule OT after the 06/03/18 visit. Progress Notes ([facility]): RT Bran, Tech 04/05/2018 9:24 AM Signed Radiology Service Progress Note PATIENT NAME: Yunier Patiño DATE OF SERVICE: April 05, 2018 TIME: 9:23 AM PATIENT IDENTITY VERIFICATION COMPLETED USING TWO (2) METHODS: Patient confirmed name verbally and Date of . PATIENT GENDER DATA: Female. status: : No status: NO. PATIENT RELEVANT IMPLANT DATA REVIEWED: Not Applicable RADIOLOGY DEPARTMENT: General X-ray: Exam(s) Completed: Upper Extremity X-Ray(s): Hand, bilateral : PERIPHERAL IV DATA: Not applicable SIGNED BY: RT Bran April 05, 2018 9:23 AM PROGRESS Observed: 04/05/2018 Status: COMPLETED Source: [place] 11:14 AM [facility] REPOSITORY O ID: [id number] Author: Rama Diallo (Pa) Service: (none) Author Type: Physician Wood Tile Installation Helper Type: Progress Notes Filed: 04/06/2018 9:19 AM Note Text: Rama Diallo PA-C Department of Orthopaedics Orthopaedics [address] [facility] [address] Dept: [phone] Dept April 05, 2018 CHIEF COMPLAINT: New Patient (Bilateral thumb pain ) HPI: Ms. Yunier Patiño is a 57 year old female. She presents with bilateral thumb pain worse in the right than left for the past 2.5 years. Pain is a 4 out of 10 sharp stabbing, patient notes that she has a decrease pinching strength in her hands and often drops items at work. 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 She is not scheduled to return to work until July 2018. She would like to have something done with her right thumb. The patient's mother is planning to have a CMC arthroplasty in April, the patient is interested in having surgical intervention as she already to be off work. 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 She is able to ambulate without the Rolator and has a wheelchair if needed. ASSESSMENT: M18.0 Primary osteoarthritis of both first carpometacarpal joints (primary encounter diagnosis) M79.644 Pain of right thumb PLAN: We discussed surgical intervention, the patients questions were addressed. The risks, benefits, alternatives and were discussed, patinet understands and wishes to pursue surgical intervention. Ms. Yunier Patiño was advised as to contrast therapies and/or to take analgesics/anti-inflammatories as needed and all contraindications were reviewed. OBJECTIVE: Ms. Yunier Patiño is a pleasant 57 year old in no apparent distress. Gen:BP 120/77 Pulse 81 Ht 5' 5 (1.65m) Wt 221 lb (100.2kg) BMI 36.78 kg/(m2). nl development, obese, no deformities ENT: Normocephalic, normal hearing, moist mucosa CV: Pulses:Radial= 2+ and symmetric, capillary refill < 2 secs, no peripheral edema/varicosities Skin: no rash, bruising or lesions. Good turgor. Psych: cooperative and appropriate, alert and oriented x 3, good mood and affect. Musculoskeletal: Right thumb with mild swelling at the base. Mild tenderness to palpation at the dorsal capsule with very minimal crepitance. Painful grind test. Good motion at the MCP without hyperextension. Same with PIP and no locking or catching. Median, radial and ulnar nerves are intact. Non-tender first dorsal compartment with a negative Thom's test. IMAGING: IMPRESSION: MILD DEGENERATIVE JOINT DISEASE. Migratory Farm Hand: ARIA ? Transcribe Date/Time: Apr 05 2018 ?7:23P Dictated by : EDDIE BALLARD MD This examination was interpreted and the report reviewed and electronically signed by: EDDIE BALLARD MD on Apr 05 2018 ?7:24PM ?EST Results-Findings * * *Final Report* * * DATE OF EXAM: Apr 05 2018 ?9:22AM ? WRX ? 5556 ?- ?XR HAND 3V PA/LAT/OBL PAU ? / PROCEDURE REASON: Pain ?? ? * * * * Physician Interpretation * * * * ?HISTORY: 57-YEAR-OLD FEMALE WITH ? Pain ? . ?bilateral thumb CMC joint pain for years, Right hand pointer finger numbness and discolored from PIP joint ot the tip of the finger for 1 day. no injury TECHNIQUE: XR HAND 3V PA/LAT/OBL PAU ?? Laterality: ?BILATERAL ?? Number of different views (projections): 3-each COMPARISON: None RESULT: ?Small osteophytes at the first CMC joint bilaterally. ?Mild narrowing of DIP joint of fourth and fifth digit on the right and moderate narrowing of the fourth and fifth digit on left with osteophytes on the left. ?Bones and joints of the hands otherwise normal. ?No erosions, no fracture. Supporting Subjective Information Below: Past Medical History: PAST MEDICAL HISTORY Diagnosis Date - Chronic obstructive pulmonary disease (HCC) 01/03/2016 Patient reports diagnosis by CT - COPD (chronic obstructive pulmonary disease) (HCC) - Ex-smoker 10/19/2017 Started around 10-11 yo up to 1/2 PPD and quite 2008 - GERD (gastroesophageal reflux disease) - Headache(784.0) starting 47 years old - Hypothyroidism 06/11/2012 - Mild persistent asthma without complication 02/25/2018 Past Surgical History: PAST SURGICAL HISTORY Procedure Laterality Date - CHOLECYSTECTOMY 07/17/2015 - COLONOSCOP W/ OR W/O [facility] SPEC 09/13/13 few diverticula, repeat 10 yrs - EGD W/O [facility] SPECIMEN W/BX 09/13/13 gastritis - FECAL OCCULT BLOOD TEST 07/16/2017 negative - HEMORRHOIDECTOMY 07/28/2017 - LIGATION OF HEMORRHOID(S) 05/05/2016 - PAST SURGICAL HISTORY OF - PAST SURGICAL HISTORY OF breast cyst, right? - PAST SURGICAL HISTORY OF Left 02/2018 common iliac stent - REMOVAL OF TONSILS,<12 Y/O Tonsillectomy - [facility] N/CARPAL TUNNEL SURG 05/26/12 Carpal tunnel decomp-bilateral - TOOTH EXTRACTION ~2009 all teeth extracted - TOTAL ABDOM HYSTERECTOMY 1994 [place], ovaries? menorrhagia, benign Family History: FAMILY HISTORY Problem Relation Age of Onset - Ischemic Heart Disease Father 68 [place] 72 - Prostate Cancer Father - Coronary Artery Disease Father early 50's - other (ischemic bowel disease) Father ?diverticulosis - Alzheimer's Disease Maternal Grandmother - Lipids Mother - Thyroid Mother - Thyroid Sister Social History:Social History Marital status: Legally Spouse name: Years of education: Number of children: 2 Occupational History Occupation Employer [employer] Social History Main Topics Smoking status: Former Smoker Packs/day: 0.50 Years: 20.00 Types: Cigarettes Quit date: 05/18/2008 Smokeless tobacco: Never Used Alcohol use: No Drug use: No Sexual activity: Yes Partners with: Male control/protection: Surgical Social History Narrative from her since 1990 ( did not show twice for divorce). Medications: Current Outpatient Prescriptions: aspirin, enteric coated (ECOTRIN) 325 mg EC tablet Take 1 tablet by mouth once daily. Take with food. ranitidine (ZANTAC) 150 mg tablet Take 1 tablet by mouth twice daily. pantoprazole DR (PROTONIX) 40 mg tablet Take 1 tablet by mouth twice daily. Take on empty stomach, 1/2 hr before meal. montelukast (SINGULAIR) 10 mg tablet Take 1 tablet by mouth daily at bedtime. Per respiratory therapy aide COMPOUNDED PRESCRIPTION One rollator walker with wheels, hand brakes and seat bench, Dx: M51.27, M54.16, M54.42, Z91.81 and R26.89 levothyroxine (SYNTHROID) 50 mcg tablet Take 1 tablet by mouth once daily. Take on empty stomach. For thyroid. albuterol HFA (PROVENTIL HFA, VENTOLIN HFA) 90 mcg/actuation inhaler Inhale 2 Puffs as instructed every 6 hours as needed. EPINEPHrine (EPIPEN) 0.3 mg/0.3 mL auto-injector Inject 0.3 mL intramuscularly as needed. SUMAtriptan (IMITREX) 100 mg tablet One table by mouth with onset of headache. Can repeat in and hour but only 2 tabs in 24 hrs. hydrOXYzine HCl (ATARAX) 25 mg tablet Take 1 tablet by mouth twice daily. Per respiratory therapy aide cholecalciferol, Vitamin D3, (VITAMIN D3) 50,000 unit cap capsule Take 1 capsule by mouth once each week. No current facility-administered medications for this visit. Allergies: Laguna; Ciprofloxacin; Dust; Gabapentin; Insect Parts; Pollen; Morphine ROS: General (negative for fatigue, malaise, weight loss/gain) HEENT (negative for headache, earache, recent vision changes, sinus pain, sore throat) Respiratory (no recent shortness of breath, hemoptysis) CV (negative for chest tightness, palpitations) Musculoskeletal (see HPI) Psych (no depression, anxiety) This note was partially generated using Helium voice recognition system, and there may be some incorrect words, spellings, and punctuation that were not noted in checking the note before saving. Rama Diallo PA-C PROGRESS Observed: 04/05/2018 Status: COMPLETED Source: [place] 10:19 AM [facility] REPOSITORY HNO ID: [id number] Author: Becki Abbott Ma Service: (none) Author Type: (none) Type: Progress Notes Filed: 04/06/2018 9:19 AM Note Text: AMB ROOMING INTAKE FLOWSHEET DATA Risk Screening Do you have concerns about personal safety or safety in the home?: No Pain Pain Score: 4/10 Pain Location: Other: See Comment (bilateral hands) Description: Numbness, Tingling, Sharp Duration Amount of Time: 2.5 Frequency: Intermittent Intervention: Other: See comment (none) Patient here today for bilateral thumb pain x 2.5 years. Patient states she gets sharp pains and has to drop whatever is in her hands. She is right hand dominant. CNOV Observed: 04/05/2018 Status: COMPLETED Source: [place] 9:40 AM [facility] REPOSITORY Office Visit (ORTH[facility]) YUNIER PATIÑO ([id number]) 1960 F Date Time Provider Department 04/05/18 9:40 AM RAMA DIALLO) ORALIA During your visit today, we recorded the following information about you: Pulse Blood pressure Weight Height 81/minute 120/77 100.2 kg 1.651 m Becki Abbott Ma 04/06/2018 9:19 AM Signed AMB ROOMING INTAKE FLOWSHEET DATA Risk Screening Do you have concerns about personal safety or safety in the home?: No Pain Pain Score: 4/10 Pain Location: Other: See Comment (bilateral hands) Description: Numbness, Tingling, Sharp Duration Amount of Time: 2.5 Frequency: Intermittent Intervention: Other: See comment (none) Patient here today for bilateral thumb pain x 2.5 years. Patient states she gets sharp pains and has to drop whatever is in her hands. She is right hand dominant. Rama Diallo PA-C 04/06/2018 9:19 AM Signed Rama Diallo PA-C Department of Orthopaedics Orthopaedics [address] [facility] [address] Dept: [phone] Dept April 05, 2018 CHIEF COMPLAINT: New Patient (Bilateral thumb pain ) HPI: Ms. Yunier Patiño is a 57 year old female. She presents with bilateral thumb pain worse in the right than left for the past 2.5 years. Pain is a 4 out of 10 sharp stabbing, patient notes that she has a decrease pinching strength in her hands and often drops items at work. 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 She is not scheduled to return to work until July 2018. She would like to have something done with her right thumb. The patient's mother is planning to have a CMC arthroplasty in April, the patient is interested in having surgical intervention as she already to be off work. 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 She is able to ambulate without the Rolator and has a wheelchair if needed. ASSESSMENT: M18.0 Primary osteoarthritis of both first carpometacarpal joints (primary encounter diagnosis) M79.644 Pain of right thumb PLAN: We discussed surgical intervention, the patients questions were addressed. The risks, benefits, alternatives and were discussed, patinet understands and wishes to pursue surgical intervention. Ms. Yunier Patiño was advised as to contrast therapies and/or to take analgesics/anti-inflammatories as needed and all contraindications were reviewed. OBJECTIVE: Ms. Yunier Patiño is a pleasant 57 year old in no apparent distress. Gen:BP 120/77 Pulse 81 Ht 5' 5 (1.65m) Wt 221 lb (100.2kg) BMI 36.78 kg/(m2). nl development, obese, no deformities ENT: Normocephalic, normal hearing, moist mucosa CV: Pulses:Radial= 2+ and symmetric, capillary refill < 2 secs, no peripheral edema/varicosities Skin: no rash, bruising or lesions. Good turgor. Psych: cooperative and appropriate, alert and oriented x 3, good mood and affect. Musculoskeletal: Right thumb with mild swelling at the base. Mild tenderness to palpation at the dorsal capsule with very minimal crepitance. Painful grind test. Good motion at the MCP without hyperextension. Same with PIP and no locking or catching. Median, radial and ulnar nerves are intact. Non- tender first dorsal compartment with a negative Thom's test. IMAGING: IMPRESSION: MILD DEGENERATIVE JOINT DISEASE. Migratory Farm Hand: PSCB ? Transcribe Date/Time: Apr 05 2018 ?7:23P Dictated by : EDDIE BALLARD MD This examination was interpreted and the report reviewed and electronically signed by: EDDIE BALLARD MD on Apr 05 2018 ?7:24PM ?EST Results-Findings * * *Final Report* * * DATE OF EXAM: Apr 05 2018 ?9:22AM ? WRX ? 5556 ?- ?XR HAND 3V PA/LAT/OBL PAU ? / PROCEDURE REASON: Pain ?? ? * * * * Physician Interpretation * * * * ?HISTORY: 57-YEAR-OLD FEMALE WITH ? Pain ? . ?bilateral thumb CMC joint pain for years, Right hand pointer finger numbness and discolored from PIP joint ot the tip of the finger for 1 day. no injury TECHNIQUE: XR HAND 3V PA/LAT/OBL PAU ?? Laterality: ?BILATERAL ?? Number of different views (projections): 3-each COMPARISON: None RESULT: ?Small osteophytes at the first CMC joint bilaterally. ?Mild narrowing of DIP joint of fourth and fifth digit on the right and moderate narrowing of the fourth and fifth digit on left with osteophytes on the left. ?Bones and joints of the hands otherwise normal. ?No erosions, no fracture. Supporting Subjective Information Below: Past Medical History: PAST MEDICAL HISTORY Diagnosis Date - Chronic obstructive pulmonary disease (HCC) 01/03/2016 Patient reports diagnosis by CT - COPD (chronic obstructive pulmonary disease) (HCC) - Ex-smoker 10/19/2017 Started around 10-11 yo up to 1/2 PPD and quite 2008 - GERD (gastroesophageal reflux disease) - Headache(784.0) starting 47 years old - Hypothyroidism 06/11/2012 - Mild persistent asthma without complication 02/25/2018 Past Surgical History: PAST SURGICAL HISTORY Procedure Laterality Date - CHOLECYSTECTOMY 07/17/2015 - COLONOSCOP W/ OR W/O [facility] SPEC 09/13/13 few diverticula, repeat 10 yrs - EGD W/O [facility] SPECIMEN W/BX 09/13/13 gastritis - FECAL OCCULT BLOOD TEST 07/16/2017 negative - HEMORRHOIDECTOMY 07/28/2017 - LIGATION OF HEMORRHOID(S) 05/05/2016 - PAST SURGICAL HISTORY OF - PAST SURGICAL HISTORY OF breast cyst, right? - PAST SURGICAL HISTORY OF Left 02/2018 common iliac stent - REMOVAL OF TONSILS,<12 Y/O Tonsillectomy - [facility] N/CARPAL TUNNEL SURG 05/26/12 Carpal tunnel decomp-bilateral - TOOTH EXTRACTION ~2009 all teeth extracted - TOTAL ABDOM HYSTERECTOMY 1994 [place], ovaries? menorrhagia, benign Family History: FAMILY HISTORY Problem Relation Age of Onset - Ischemic Heart Disease Father 68 [place] 72 - Prostate Cancer Father - Coronary Artery Disease Father early 50's - other (ischemic bowel disease) Father ?diverticulosis - Alzheimer's Disease Maternal Grandmother - Lipids Mother - Thyroid Mother - Thyroid Sister Social History:Social History Marital status: Legally Spouse name: Years of education: Number of children: 2 Occupational History Occupation Employer [employer] Social History Main Topics Smoking status: Former Smoker Packs/day: 0.50 Years: 20.00 Types: Cigarettes Quit date: 05/18/2008 Smokeless tobacco: Never Used Alcohol use: No Drug use: No Sexual activity: Yes Partners with: Male control/protection: Surgical Social History Narrative from her since 1990 ( did not show twice for divorce). Medications: Current Outpatient Prescriptions: aspirin, enteric coated (ECOTRIN) 325 mg EC tablet Take 1 tablet by mouth once daily. Take with food. ranitidine (ZANTAC) 150 mg tablet Take 1 tablet by mouth twice daily. pantoprazole DR (PROTONIX) 40 mg tablet Take 1 tablet by mouth twice daily. Take on empty stomach, 1/2 hr before meal. montelukast (SINGULAIR) 10 mg tablet Take 1 tablet by mouth daily at bedtime. Per respiratory therapy aide COMPOUNDED PRESCRIPTION One rollator walker with wheels, hand brakes and seat bench, Dx: M51.27, M54.16, M54.42, Z91.81 and R26.89 levothyroxine (SYNTHROID) 50 mcg tablet Take 1 tablet by mouth once daily. Take on empty stomach. For thyroid. albuterol HFA (PROVENTIL HFA, VENTOLIN HFA) 90 mcg/actuation inhaler Inhale 2 Puffs as instructed every 6 hours as needed. EPINEPHrine (EPIPEN) 0.3 mg/0.3 mL auto-injector Inject 0.3 mL intramuscularly as needed. SUMAtriptan (IMITREX) 100 mg tablet One table by mouth with onset of headache. Can repeat in and hour but only 2 tabs in 24 hrs. hydrOXYzine HCl (ATARAX) 25 mg tablet Take 1 tablet by mouth twice daily. Per respiratory therapy aide cholecalciferol, Vitamin D3, (VITAMIN D3) 50,000 unit cap capsule Take 1 capsule by mouth once each week. No current facility-administered medications for this visit. Allergies: Laguna; Ciprofloxacin; Dust; Gabapentin; Insect Parts; Pollen; Morphine ROS: General (negative for fatigue, malaise, weight loss/gain) HEENT (negative for headache, earache, recent vision changes, sinus pain, sore throat) Respiratory (no recent shortness of breath, hemoptysis) CV (negative for chest tightness, palpitations) Musculoskeletal (see HPI) Psych (no depression, anxiety) This note was partially generated using Helium voice recognition system, and there may be some incorrect words, spellings, and punctuation that were not noted in checking the note before saving. Rama Diallo PA-C Referring Provider: SELF [[id number]] Allergies As of Date: 04/05/2018 Noted Allergy Reaction LAGUNA 06/08/2012 7 - Swelling CIPROFLOXACIN 12/17/2015 14 - Other: See Comments Comments: Chest tightness DUST 06/08/2012 7 - Swelling GABAPENTIN 10/14/2017 7 - Swelling Comments: Throat swelling. INSECT PARTS 03/26/2016 7 - Swelling 12 - Shortness of Breath 17 - Myalgia Comments: Pt not sure what bit her but developed redness,difficulty swallowing and swelling of face and neck POLLEN 06/08/2012 7 - Swelling MORPHINE 06/08/2012 11 - Vomiting Date Reviewed: 04/05/2018 Reviewed by: Rama Diallo (Pa) - Fully Assessed Reason for Visit: New Patient [172] Cmt: Bilateral thumb pain Primary Visit Diagnosis:Primary osteoarthritis of both first carpometacarpal joints [M18.0] Other Visit Diagnosis:Pain of right thumb [M79.644] Prescriptions as of 04/05/2018 Sig: ASPIRIN 325 MG TABLET,DELAYED* Take 1 tablet by mouth once d* RANITIDINE 150 MG TABLET Take 1 tablet by mouth twice * PANTOPRAZOLE 40 MG TABLET,DEL* Take 1 tablet by mouth twice * MONTELUKAST 10 MG TABLET Take 1 tablet by mouth daily * COMPOUNDED PRESCRIPTION One rollator walker with whee* LEVOTHYROXINE 50 MCG TABLET Take 1 tablet by mouth once d* ALBUTEROL SULFATE HFA 90 MCG/* Inhale 2 Puffs as instructed * EPINEPHRINE 0.3 MG/0.3 ML INJ* Inject 0.3 mL intramuscularly* SUMATRIPTAN 100 MG TABLET One table by mouth with onset* HYDROXYZINE HCL 25 MG TABLET Take 1 tablet by mouth twice * CHOLECALCIFEROL (VITAMIN D3) * Take 1 capsule by mouth once * Problem List As Of Date 04/05/2018 Noted Resolved Migraine without aura and without status migrai* Priority: A More... More... Acquired hypothyroidism [E03.9] INVALID FOR* Priority: A More... More... Encounter for screening for diabetes mellitus [*INVALID FOR* Encounter for screening for cardiovascular diso*INVALID FOR* Encounter for gynecological examination without*INVALID FOR* Priority: E More... Chronic obstructive pulmonary disease (HCC) [J4*INVALID FOR* Priority: A More... Hemorrhoids, internal, with bleeding [K64.8] INVALID FOR* Priority: C Well adult exam [Z00.00] INVALID FOR* Priority: E More... More... Chronic bilateral low back pain with bilateral *INVALID FOR* Priority: M Radiculopathy, lumbar region [M54.16] INVALID FOR* Priority: M Lumbago-sciatica due to displacement of lumbar *INVALID FOR* Priority: M Ex-smoker [Z87.891] INVALID FOR* Priority: B More... Lung nodule [R91.1] INVALID FOR* Priority: B More... Mild persistent asthma without complication [J4*INVALID FOR* Priority: A May-Thurner syndrome [I87.1] INVALID FOR* Encounter Status:Closed by RAMA DIALLO PA-C on 04/06/18 PROGRESS Observed: 04/05/2018 Status: COMPLETED Source: [place] 9:23 AM [facility] [place] REPOSITORY HNO ID: [id number] Author: Najma (Rt) Sobia Contreras Service: (none) Author Type: Conventional Machinist Type: Progress Notes Filed: 04/05/2018 9:24 AM Note Text: Radiology Service Progress Note PATIENT NAME: Yunier Patiño DATE OF SERVICE: April 05, 2018 TIME: 9:23 AM PATIENT IDENTITY VERIFICATION COMPLETED USING TWO (2) METHODS: Patient confirmed name verbally and Date of . PATIENT GENDER DATA: Female. status: : No status: NO. PATIENT RELEVANT IMPLANT DATA REVIEWED: Not Applicable RADIOLOGY DEPARTMENT: General X-ray: Exam(s) Completed: Upper Extremity X-Ray(s): Hand, bilateral : PERIPHERAL IV DATA: Not applicable SIGNED BY: RT Bran April 05, 2018 9:23 AM XR HAND 3V PA/LAT/OBL Observed: 04/05/2018 Status: F Source: [facility] 9:22 AM [facility] REPOSITORY * * *Final Report* * * DATE OF EXAM: Apr 05 2018 9:22AM [id number] - XR HAND 3V PA/LAT/OBL PAU / PROCEDURE REASON: Pain * * * * Physician Interpretation * * * * HISTORY: 57-YEAR-OLD FEMALE WITH Pain . bilateral thumb CMC joint pain for years, Right hand pointer finger numbness and discolored from PIP joint ot the tip of the finger for 1 day. no injury TECHNIQUE: XR HAND 3V PA/LAT/OBL PAU Laterality: BILATERAL Number of different views (projections): 3-each COMPARISON: None RESULT: Small osteophytes at the first CMC joint bilaterally. Mild narrowing of DIP joint of fourth and fifth digit on the right and moderate narrowing of the fourth and fifth digit on left with osteophytes on the left. Bones and joints of the hands otherwise normal. No erosions, no fracture. IMPRESSION: MILD DEGENERATIVE JOINT DISEASE. [employer] Hand: ARIA Transcribe Date/Time: Apr 05 2018 7:23P Dictated by : EDDIE BALLARD MD This examination was interpreted and the report reviewed and electronically signed by: EDDIE BALLARD MD on Apr 05 2018 7:24PM EST [id number] Observed: 04/05/2018 Status: COMPLETED Source: [place] 12:00 AM [facility] REPOSITORY Telephone (ORTHWS) YUNIER PATIÑO ([id number]) 1960 F Date Time Provider Department 04/05/18 WOLFGANG BARGER During your visit today, we recorded the following information about you: Gabby Mccarty Ma 04/05/2018 1:27 PM Signed Please schedule patient for Right thumb CMC arthroplasty with possible ligament reconstruction and tendon interposition on 05/05/18. Selam Burgess [facility] 04/06/2018 3:00 PM Signed Surgical request completed, post ops made and mailed. Please place an OT order. Rama Diallo PA-C 04/06/2018 4:17 PM Signed OT order placed. [place]am Burgess [facility] 04/07/2018 8:36 AM Signed Please contact the patient to schedule OT after the 06/03/18 visit. Sandra Lucas 04/07/2018 12:10 PM Signed Left message for patient to contact office for message below. Please document and close when completed. Patient is scheduled for Occupational Therapy at [facility] on 06/07. Please advise patient of appointment and reschedule at patient request. Becki Abbott Ma 04/07/2018 1:53 PM Signed Could we please schedule OT to follow appointment on 06/03/2018? Thanks! Jordan Agosto RN 04/07/2018 2:03 PM Signed Patient returned call and informed her of OT appt at [facility] on 06-07-17. Patient agreeable. Irena Ayde Machado Psr 04/07/2018 2:17 PM Signed Contacted patient, rescheduled her OT appointment to 06/03/18 after her office visit with Dr. Barger as stated below. Allergies As of Date: 04/05/2018 Noted Allergy Reaction LAGUNA 06/08/2012 7 - Swelling CIPROFLOXACIN 12/17/2015 14 - Other: See Comments Comments: Chest tightness DUST 06/08/2012 7 - Swelling GABAPENTIN 10/14/2017 7 - Swelling Comments: Throat swelling. INSECT PARTS 03/26/2016 7 - Swelling 12 - Shortness of Breath 17 - Myalgia Comments: Pt not sure what bit her but developed redness,difficulty swallowing and swelling of face and neck POLLEN 06/08/2012 7 - Swelling MORPHINE 06/08/2012 11 - Vomiting Date Reviewed: 04/05/2018 Reviewed by: Rama Diallo (Pa) - Fully Assessed Reason for Visit: Schedule Surgery [1330] Primary Visit Diagnosis:Arthritis of carpometacarpal (CMC) joint of both thumbs [M18.11, M18.12] Order(s):CONSULT TO BILLET RECORDER [[id number]] Order #: [id number]: 1 Prescriptions as of 04/05/2018 Sig: ASPIRIN 325 MG TABLET,DELAYED* Take 1 tablet by mouth once d* RANITIDINE 150 MG TABLET Take 1 tablet by mouth twice * PANTOPRAZOLE 40 MG TABLET,DEL* Take 1 tablet by mouth twice * MONTELUKAST 10 MG TABLET Take 1 tablet by mouth daily * HYDROXYZINE HCL 25 MG TABLET Take 1 tablet by mouth twice * COMPOUNDED PRESCRIPTION One rollator walker with whee* CHOLECALCIFEROL (VITAMIN D3) * Take 1 capsule by mouth once * LEVOTHYROXINE 50 MCG TABLET Take 1 tablet by mouth once d* ALBUTEROL SULFATE HFA 90 MCG/* Inhale 2 Puffs as instructed * EPINEPHRINE 0.3 MG/0.3 ML INJ* Inject 0.3 mL intramuscularly* SUMATRIPTAN 100 MG TABLET One table by mouth with onset* Problem List As Of Date 04/05/2018 Noted Resolved Migraine without aura and without status migrai* Priority: A More... More... Acquired hypothyroidism [E03.9] INVALID FOR* Priority: A More... More... Encounter for screening for diabetes mellitus [*INVALID FOR* Encounter for screening for cardiovascular diso*INVALID FOR* Encounter for gynecological examination without*INVALID FOR* Priority: E More... Chronic obstructive pulmonary disease (HCC) [J4*INVALID FOR* Priority: A More... Hemorrhoids, internal, with bleeding [K64.8] INVALID FOR* Priority: C Well adult exam [Z00.00] INVALID FOR* Priority: E More... More... Chronic bilateral low back pain with bilateral *INVALID FOR* Priority: M Radiculopathy, lumbar region [M54.16] INVALID FOR* Priority: M Lumbago-sciatica due to displacement of lumbar *INVALID FOR* Priority: M Ex-smoker [Z87.891] INVALID FOR* Priority: B More... Lung nodule [R91.1] INVALID FOR* Priority: B More... Mild persistent asthma without complication [J4*INVALID FOR* Priority: A May-Thurner syndrome [I87.1] INVALID FOR* Encounter Status:Closed by Jordan AGOSTO RN on 04/07/18 PROGRESS Observed: 03/26/2018 Status: COMPLETED Source: [place] 3:36 PM [facility] REPOSITORY O ID: [id number] Author: Gabby Dave Service: (none) Author Type: Physician Type: Progress Notes Filed: 03/28/2018 5:20 PM Note Text: Yunier Patiño 1960 REFERRING PHYSICIAN: Ольга Buckner(Christiane)* CHIEF COMPLAINT: Consult (bloating, diarrhea) HPI: The patient is a 57 year old female presents with complaint of abdominal bloating and changes in bowel habits. Also notes bloody stools and fecal urgency. Denies acid indigestion Complains of abdominal bloating - primarily She feels like she is splitting apart, because of the abdominal pain/bloating. Denies hematemesis. Complaint of upper abdominal pain/tenderness, noted for the past 2 years. This sometimes cause her to have difficulty breathing. Has fecal urgency, however, when is sitting on toilet, feels like she has to push it out This has been going on for about a year. Had EGD/colonoscopy in 2013. Diverticulosis noted. Chronic inactive gastritis noted. Had hemorrhoids surgery x 2. Had aortic stent placed on March 10. No colon cancer in the family. Notes first stool is hard and then subsequent bowel movements are loose. Notes occasional blood in stools. She feels that she is imminent danger of a catastrophic medical problem. PAST MEDICAL HISTORY Diagnosis Date - Chronic obstructive pulmonary disease (HCC) 01/03/2016 Patient reports diagnosis by CT - COPD (chronic obstructive pulmonary disease) (HCC) - Ex-smoker 10/19/2017 Started around 10-11 yo up to 14 PPD and quite 2008 - GERD (gastroesophageal reflux disease) - Headache(784.0) starting 47 years old - Hypothyroidism 06/11/2012 - Mild persistent asthma without complication 02/25/2018 PAST SURGICAL HISTORY Procedure Laterality Date - CHOLECYSTECTOMY 07/17/2015 - COLONOSCOP W/ OR W/O [facility]SH SPEC 09/13/13 few diverticula, repeat 10 yrs - EGD W/O [facility] SPECIMEN W/BX 09/13/13 gastritis - FECAL OCCULT BLOOD TEST 07/16/2017 negative - HEMORRHOIDECTOMY 07/28/2017 - LIGATION OF HEMORRHOID(S) 05/05/2016 - PAST SURGICAL HISTORY OF - PAST SURGICAL HISTORY OF breast cyst, right? - PAST SURGICAL HISTORY OF Left 02/2018 common iliac stent - REMOVAL OF TONSILS,<12 Y/O Tonsillectomy - REVISE MEDIAN N/CARPAL TUNNEL SURG 05/26/12 Carpal tunnel decomp-bilateral - TOOTH EXTRACTION ~2009 all teeth extracted - TOTAL ABDOM HYSTERECTOMY 1994 [place], ovaries? menorrhagia, benign PAST INJURIES Denies head injuries, had left ankle fracture recently Current Outpatient Prescriptions: aspirin, enteric coated (ECOTRIN) 325 mg EC tablet Take 1 tablet by mouth once daily. Take with food. ranitidine (ZANTAC) 150 mg tablet Take 1 tablet by mouth twice daily. pantoprazole DR (PROTONIX) 40 mg tablet Take 1 tablet by mouth twice daily. Take on empty stomach, 1/2 hr before meal. montelukast (SINGULAIR) 10 mg tablet Take 1 tablet by mouth daily at bedtime. Per respiratory therapy aide hydrOXYzine HCl (ATARAX) 25 mg tablet Take 1 tablet by mouth twice daily. Per respiratory therapy aide COMPOUNDED PRESCRIPTION One rollator walker with wheels, hand brakes and seat bench, Dx: M51.27, M54.16, M54.42, Z91.81 and R26.89 cholecalciferol, Vitamin D3, (VITAMIN D3) 50,000 unit cap capsule Take 1 capsule by mouth once each week. levothyroxine (SYNTHROID) 50 mcg tablet Take 1 tablet by mouth once daily. Take on empty stomach. For thyroid. albuterol HFA (PROVENTIL HFA, VENTOLIN HFA) 90 mcg/actuation inhaler Inhale 2 Puffs as instructed every 6 hours as needed. EPINEPHrine (EPIPEN) 0.3 mg/0.3 mL auto-injector Inject 0.3 mL intramuscularly as needed. SUMAtriptan (IMITREX) 100 mg tablet One table by mouth with onset of headache. Can repeat in and hour but only 2 tabs in 24 hrs. peg 3350-Electrolytes (GOLYTELY) 236-22.74-6.74 -5.86 gram suspension Take 4,000 mL by mouth one time only for 1 dose. Refer to printed prep instructions from your doctor. ALLERGIES: Laguna; Ciprofloxacin; Dust; Gabapentin; Insect Parts; Pollen; Morphine PERSONAL HISTORY: Social History Marital status: Legally Spouse name: Years of education: Number of children: 2 Occupational History Occupation Employer [employer] Social History Main Topics Smoking status: Former Smoker Packs/day: 0.50 Years: 20.00 Types: Cigarettes Quit date: 05/18/2008 Smokeless tobacco: Never Used Alcohol use: No Drug use: No Sexual activity: Yes Partners with: Male control/protection: Surgical Social History Narrative from her since 1990 ( did not show twice for divorce). FAMILY HISTORY Problem Relation Age of Onset - Ischemic Heart Disease Father 68 [place] 72 - Prostate Cancer Father - Coronary Artery Disease Father early 50's - other (ischemic bowel disease) Father ?diverticulosis - Alzheimer's Disease Maternal Grandmother - Lipids Mother - Thyroid Mother - Thyroid Sister REVIEW OF SYSTEMS: General: The patient denies fatigue, denies weight loss, NOTES weight gain, denies feeling hot, and denies feelings of cold. Eyes: The patient denies glaucoma, denies eye injury/surgery, wears glasses or contacts. Ear/Nose/Throat: The patient NOTES allergies, denies hayfever, denies ear infections, and denies bloody noses. Cardiovascular: The patient denies chest pain, denies heart disease, denies high blood pressure,denies cardiac stent, denies prior heart attack, denies irregular heart beat, denies high cholesterol, denies poor circulation, denies heart failure, other cardiac issues, denies claudication, denies cold feet, denies peripheral arterial stent. Respiratory: The patient denies tuberculosis, denies pneumonia, denies frequent cough, denies pulmonary embolism, denies shortness of breath, and denies coughing up blood. Gastrointestinal: The patient denies difficulty swallowing, NOTES acid reflux, denies ulcers, denies vomiting, denies jaundice/hepatitis, NOTES gallbladder problems, denies black or tarry stools, NOTES hemorrhoids, NOTES bleeding from rectum, denies diverticulitis, denies constipation, denies diarrhea, denies loss of stool control, and denies hernias. Kidney/Bladder: The patient denies kidney stones, denies urine infections, and denies bloody urine. Skin: The patient denies a history of skin cancer, denies bleeding/changing moles, and denies a history of skin rash. Neurologic: The patient denies a history of epilepsy/convulsions, NOTES headaches, denies head/spinal injuries, and denies stroke/TIA. Psychiatric: The patient denies psychiatric medications, denies depression, and denies voices, denies substance abuse. Endocrine: The patient NOTES thyroid disorders, denies diabetes, and NOTES hormonal problems. Hematologic: The patient denies a history of bruising, denies bleeding, and denies anemia, denies blood clots. Infections: The patient NOTES a history of measles and mumps, denies rheumatic fever, and denies sexually transmitted diseases. Musculoskeletal: The patient denies back pain/injury, NOTES back problems, NOTES sciatica, denies knee/foot trouble, NOTES arthritis, or denies gout. PHYSICAL EXAMINATION: General: The patient is 57 year old female, well nourished, well hydrated in no acute distress. The patient is oriented to time, place, and person. VITALS: Blood pressure 124/86, pulse 76, weight 101.2 kg (223 lb). Body mass index is 37.98 kg/m?. Head ? Normocephalic. EOM intact with sclera clear and no icterus noted. Mouth with mucus membranes moist. Neck - supple with no jugular venous distention noted. Trachea is midline. Lungs ? clear to auscultation. Normal breath sounds. No rales/rhonchi/wheezing noted. No labored breathing noted, such as retractions. Heart ? normal S1 and S2 auscultated. No rubs/clicks/murmurs noted. Regular rate. Abdomen ? soft and benign. Normal bowel sounds. Extremities ? no calf tenderness noted. Skin ? normal skin integrity. Neurological ? gait normal, no focal deficits noted. Psych ? calm and appropriate Assessment IMPRESSION: abdominal bloating, changes in bowel habits PLAN: I have discussed the above with the patient. I have offered EGD and colonoscopy, possible biopsies for evaluation. I have explained the procedure to the patient. I have counseled the patient as to the risks of the procedure, including but not limited to: infection, bleeding, injury to any blood vessels/nerves, scar tissue, injury to any intraabdominal organs such as the liver/spleen, perforation of the GI tract, inability to complete the procedure, complications of anesthesia, etc. ? the patient understands. The patient wishes to proceed. I have answered all questions to the patient?s satisfaction and the patient has no further questions. Diagnoses: (R10.11, R10.12) Bilateral upper abdominal pain (primary encounter diagnosis) (R19.4) Altered bowel habits (R15.2) Fecal urgency (K92.1) Bloody stools Return to Clinic: The patient is instructed to follow-up with me after the procedure Gabby Dave MD CNOV Observed: 03/26/2018 Status: COMPLETED Source: [place] 10:00 AM [facility] REPOSITORY Office Visit (GENSWS) YUNIER PATIÑO ([id number]) 1960 F Date Time Provider Department 03/26/18 10:00 AM GABBY DAVE During your visit today, we recorded the following information about you: Pulse Blood pressure Weight 76/minute 124/86 101.2 kg Christel Llanos Oscar 03/26/2018 10:23 AM Signed REVIEW OF SYSTEMS: General: The patient denies fatigue, denies weight loss, NOTES weight gain, denies feeling hot, and denies feelings of cold. Eyes: The patient denies glaucoma, denies eye injury/surgery, wears glasses or contacts. Ear/Nose/Throat: The patient NOTES allergies, denies hayfever, denies ear infections, and denies bloody noses. Cardiovascular: The patient denies chest pain, denies heart disease, denies high blood pressure,denies cardiac stent, denies prior heart attack, denies irregular heart beat, denies high cholesterol, denies poor circulation, denies heart failure, other cardiac issues, denies claudication, denies cold feet, denies peripheral arterial stent. Respiratory: The patient denies tuberculosis, denies pneumonia, denies frequent cough, denies pulmonary embolism, denies shortness of breath, and denies coughing up blood. Gastrointestinal: The patient denies difficulty swallowing, NOTES acid reflux, denies ulcers, denies vomiting, denies jaundice/hepatitis, NOTES gallbladder problems, denies black or tarry stools, NOTES hemorrhoids, NOTES bleeding from rectum, denies diverticulitis, denies constipation, denies diarrhea, denies loss of stool control, and denies hernias. Kidney/Bladder: The patient denies kidney stones, denies urine infections, and denies bloody urine. Skin: The patient denies a history of skin cancer, denies bleeding/changing moles, and denies a history of skin rash. Neurologic: The patient denies a history of epilepsy/convulsions, NOTES headaches, denies head/spinal injuries, and denies stroke/TIA. Psychiatric: The patient denies psychiatric medications, denies depression, and denies voices, denies substance abuse. Endocrine: The patient NOTES thyroid disorders, denies diabetes, and NOTES hormonal problems. Hematologic: The patient denies a history of bruising, denies bleeding, and denies anemia, denies blood clots. Infections: The patient NOTES a history of measles and mumps, denies rheumatic fever, and denies sexually transmitted diseases. Musculoskeletal: The patient denies back pain/injury, NOTES back problems, NOTES sciatica, denies knee/foot trouble, NOTES arthritis, or denies gout. When was patient's last Mammogram screening? May 2017 Last Colonoscopy: 2013 Christel Dave MD 03/28/2018 5:20 PM Signed Yunier Patiño 1960 REFERRING PHYSICIAN: Ольга Buckner(Christiane)* CHIEF COMPLAINT: Consult (bloating, diarrhea) HPI: The patient is a 57 year old female presents with complaint of abdominal bloating and changes in bowel habits. Also notes bloody stools and fecal urgency. Denies acid indigestion Complains of abdominal bloating - primarily She feels like she is splitting apart, because of the abdominal pain/bloating. Denies hematemesis. Complaint of upper abdominal pain/tenderness, noted for the past 2 years. This sometimes cause her to have difficulty breathing. Has fecal urgency, however, when is sitting on toilet, feels like she has to push it out This has been going on for about a year. Had EGD/colonoscopy in 2013. Diverticulosis noted. Chronic inactive gastritis noted. Had hemorrhoids surgery x 2. Had aortic stent placed on March 10. No colon cancer in the family. Notes first stool is hard and then subsequent bowel movements are loose. Notes occasional blood in stools. She feels that she is imminent danger of a catastrophic medical problem. PAST MEDICAL HISTORY Diagnosis Date - Chronic obstructive pulmonary disease (HCC) 01/03/2016 Patient reports diagnosis by CT - COPD (chronic obstructive pulmonary disease) (HCC) - Ex-smoker 10/19/2017 Started around 10-11 yo up to 1/2 PPD and quite 2008 - GERD (gastroesophageal reflux disease) - Headache(784.0) starting 47 years old - Hypothyroidism 06/11/2012 - Mild persistent asthma without complication 02/25/2018 PAST SURGICAL HISTORY Procedure Laterality Date - CHOLECYSTECTOMY 07/17/2015 - COLONOSCOP W/ OR W/O BRSH SPEC 09/13/13 few diverticula, repeat 10 yrs - EGD W/O [facility] SPECIMEN W/BX 09/13/13 gastritis - FECAL OCCULT BLOOD TEST 07/16/2017 negative - HEMORRHOIDECTOMY 07/28/2017 - LIGATION OF HEMORRHOID(S) 05/05/2016 - PAST SURGICAL HISTORY OF - PAST SURGICAL HISTORY OF breast cyst, right? - PAST SURGICAL HISTORY OF Left 02/2018 common iliac stent - REMOVAL OF TONSILS,<12 Y/O Tonsillectomy - REVISE MEDIAN N/CARPAL TUNNEL SURG 05/26/12 Carpal tunnel decomp-bilateral - TOOTH EXTRACTION ~2009 all teeth extracted - TOTAL ABDOM HYSTERECTOMY 1994 [place], ovaries? menorrhagia, benign PAST INJURIES Denies head injuries, had left ankle fracture recently Current Outpatient Prescriptions: aspirin, enteric coated (ECOTRIN) 325 mg EC tablet Take 1 tablet by mouth once daily. Take with food. ranitidine (ZANTAC) 150 mg tablet Take 1 tablet by mouth twice daily. pantoprazole DR (PROTONIX) 40 mg tablet Take 1 tablet by mouth twice daily. Take on empty stomach, 1/2 hr before meal. montelukast (SINGULAIR) 10 mg tablet Take 1 tablet by mouth daily at bedtime. Per respiratory therapy aide hydrOXYzine HCl (ATARAX) 25 mg tablet Take 1 tablet by mouth twice daily. Per respiratory therapy aide COMPOUNDED PRESCRIPTION One rollator walker with wheels, hand brakes and seat bench, Dx: M51.27, M54.16, M54.42, Z91.81 and R26.89 cholecalciferol, Vitamin D3, (VITAMIN D3) 50,000 unit cap capsule Take 1 capsule by mouth once each week. levothyroxine (SYNTHROID) 50 mcg tablet Take 1 tablet by mouth once daily. Take on empty stomach. For thyroid. albuterol HFA (PROVENTIL HFA, VENTOLIN HFA) 90 mcg/actuation inhaler Inhale 2 Puffs as instructed every 6 hours as needed. EPINEPHrine (EPIPEN) 0.3 mg/0.3 mL auto-injector Inject 0.3 mL intramuscularly as needed. SUMAtriptan (IMITREX) 100 mg tablet One table by mouth with onset of headache. Can repeat in and hour but only 2 tabs in 24 hrs. peg 3350-Electrolytes (GOLYTELY) 236-22.74-6.74 -5.86 gram suspension Take 4,000 mL by mouth one time only for 1 dose. Refer to printed prep instructions from your doctor. ALLERGIES: [place]una; Ciprofloxacin; Dust; Gabapentin; Insect Parts; Pollen; Morphine PERSONAL HISTORY: Social History Marital status: Legally Spouse name: Years of education: Number of children: 2 Occupational History Occupation Employer [employer] Social History Main Topics Smoking status: Former Smoker Packs/day: 0.50 Years: 20.00 Types: Cigarettes Quit date: 05/18/2008 Smokeless tobacco: Never Used Alcohol use: No Drug use: No Sexual activity: Yes Partners with: Male control/protection: Surgical Social History Narrative from her since 1990 ( did not show twice for divorce). FAMILY HISTORY Problem Relation Age of Onset - Ischemic Heart Disease Father 68 [place] 72 - Prostate Cancer Father - Coronary Artery Disease Father early 50's - other (ischemic bowel disease) Father ?diverticulosis - Alzheimer's Disease Maternal Grandmother - Lipids Mother - Thyroid Mother - Thyroid Sister REVIEW OF SYSTEMS: General: The patient denies fatigue, denies weight loss, NOTES weight gain, denies feeling hot, and denies feelings of cold. Eyes: The patient denies glaucoma, denies eye injury/surgery, wears glasses or contacts. Ear/Nose/Throat: The patient NOTES allergies, denies hayfever, denies ear infections, and denies bloody noses. Cardiovascular: The patient denies chest pain, denies heart disease, denies high blood pressure,denies cardiac stent, denies prior heart attack, denies irregular heart beat, denies high cholesterol, denies poor circulation, denies heart failure, other cardiac issues, denies claudication, denies cold feet, denies peripheral arterial stent. Respiratory: The patient denies tuberculosis, denies pneumonia, denies frequent cough, denies pulmonary embolism, denies shortness of breath, and denies coughing up blood. Gastrointestinal: The patient denies difficulty swallowing, NOTES acid reflux, denies ulcers, denies vomiting, denies jaundice/hepatitis, NOTES gallbladder problems, denies black or tarry stools, NOTES hemorrhoids, NOTES bleeding from rectum, denies diverticulitis, denies constipation, denies diarrhea, denies loss of stool control, and denies hernias. Kidney/Bladder: The patient denies kidney stones, denies urine infections, and denies bloody urine. Skin: The patient denies a history of skin cancer, denies bleeding/changing moles, and denies a history of skin rash. Neurologic: The patient denies a history of epilepsy/convulsions, NOTES headaches, denies head/spinal injuries, and denies stroke/TIA. Psychiatric: The patient denies psychiatric medications, denies depression, and denies voices, denies substance abuse. Endocrine: The patient NOTES thyroid disorders, denies diabetes, and NOTES hormonal problems. Hematologic: The patient denies a history of bruising, denies bleeding, and denies anemia, denies blood clots. Infections: The patient NOTES a history of measles and mumps, denies rheumatic fever, and denies sexually transmitted diseases. Musculoskeletal: The patient denies back pain/injury, NOTES back problems, NOTES sciatica, denies knee/foot trouble, NOTES arthritis, or denies gout. PHYSICAL EXAMINATION: General: The patient is 57 year old female, well nourished, well hydrated in no acute distress. The patient is oriented to time, place, and person. VITALS: Blood pressure 124/86, pulse 76, weight 101.2 kg (223 lb). Body mass index is 37.98 kg/m?. Head ? Normocephalic. EOM intact with sclera clear and no icterus noted. Mouth with mucus membranes moist. Neck - supple with no jugular venous distention noted. Trachea is midline. Lungs ? clear to auscultation. Normal breath sounds. No rales/rhonchi/wheezing noted. No labored breathing noted, such as retractions. Heart ? normal S1 and S2 auscultated. No rubs/clicks/murmurs noted. Regular rate. Abdomen ? soft and benign. Normal bowel sounds. Extremities ? no calf tenderness noted. Skin ? normal skin integrity. Neurological ? gait normal, no focal deficits noted. Psych ? calm and appropriate Assessment IMPRESSION: abdominal bloating, changes in bowel habits PLAN: I have discussed the above with the patient. I have offered EGD and colonoscopy, possible biopsies for evaluation. I have explained the procedure to the patient. I have counseled the patient as to the risks of the procedure, including but not limited to: infection, bleeding, injury to any blood vessels/nerves, scar tissue, injury to any intraabdominal organs such as the liver/spleen, perforation of the GI tract, inability to complete the procedure, complications of anesthesia, etc. ? the patient understands. The patient wishes to proceed. I have answered all questions to the patient?s satisfaction and the patient has no further questions. Diagnoses: (R10.11, R10.12) Bilateral upper abdominal pain (primary encounter diagnosis) (R19.4) Altered bowel habits (R15.2) Fecal urgency (K92.1) Bloody stools Return to Clinic: The patient is instructed to follow-up with me after the procedure Gabby Dave MD Referring Provider: ОЛЬГА BUCKNER(CHRISTIANE) [[id number]] Allergies As of Date: 03/26/2018 Noted Allergy Reaction LAGUNA 06/08/2012 7 - Swelling CIPROFLOXACIN 12/17/2015 14 - Other: See Comments Comments: Chest tightness DUST 06/08/2012 7 - Swelling GABAPENTIN 10/14/2017 7 - Swelling Comments: Throat swelling. INSECT PARTS 03/26/2016 7 - Swelling 12 - Shortness of Breath 17 - Myalgia Comments: Pt not sure what bit her but developed redness,difficulty swallowing and swelling of face and neck POLLEN 06/08/2012 7 - Swelling MORPHINE 06/08/2012 11 - Vomiting Date Reviewed: 03/26/2018 Reviewed by: Gabby Dave - Fully Assessed Reason for Visit: Consult [173] Cmt: bloating, diarrhea Primary Visit Diagnosis:Bilateral upper abdominal pain [R10.11, R10.12] Other Visit Diagnoses:Altered bowel habits [R19.4] Fecal urgency [R15.2] Bloody stools [K92.1] Order(s):TYRONE PT ED DIGESTIVE DISEASES [] Order #: [id number]: 1 [] peg 3350-Electrolytes (GOLYTELY) 236-22.74-6.74 -5.86 gram suspensionTake 4,000 mL by mouth one time only for 1 dose. Refer to printed prep instructions from your doctor.Disp: 1 BottleRfl: 0 TYRONE PT ED DIGESTIVE DISEASES [] Order #: [id number]. #:[id number]: [id number] COLONOSCOPY - DIAGNOSTIC [[id number]] Order #: [id number] FUTURE EGD [[id number]] Order #: [id number] FUTURE Prescriptions as of 03/26/2018 Sig: ASPIRIN 325 MG TABLET,DELAYED* Take 1 tablet by mouth once d* RANITIDINE 150 MG TABLET Take 1 tablet by mouth twice * PANTOPRAZOLE 40 MG TABLET,DEL* Take 1 tablet by mouth twice * MONTELUKAST 10 MG TABLET Take 1 tablet by mouth daily * HYDROXYZINE HCL 25 MG TABLET Take 1 tablet by mouth twice * COMPOUNDED PRESCRIPTION One rollator walker with whee* CHOLECALCIFEROL (VITAMIN D3) * Take 1 capsule by mouth once * LEVOTHYROXINE 50 MCG TABLET Take 1 tablet by mouth once d* ALBUTEROL SULFATE HFA 90 MCG/* Inhale 2 Puffs as instructed * EPINEPHRINE 0.3 MG/0.3 ML INJ* Inject 0.3 mL intramuscularly* SUMATRIPTAN 100 MG TABLET One table by mouth with onset* PEG 3350-ELECTROLYTES 236 GRA* Take 4,000 mL by mouth one ti* Problem List As Of Date 03/26/2018 Noted Resolved Migraine without aura and without status migrai* Priority: A More... More... Acquired hypothyroidism [E03.9] INVALID FOR* Priority: A More... More... Encounter for screening for diabetes mellitus [*INVALID FOR* Encounter for screening for cardiovascular diso*INVALID FOR* Encounter for gynecological examination without*INVALID FOR* Priority: E More... Chronic obstructive pulmonary disease (HCC) [J4*INVALID FOR* Priority: A More... Hemorrhoids, internal, with bleeding [K64.8] INVALID FOR* Priority: C Well adult exam [Z00.00] INVALID FOR* Priority: E More... More... Chronic bilateral low back pain with bilateral *INVALID FOR* Priority: M Radiculopathy, lumbar region [M54.16] INVALID FOR* Priority: M Lumbago-sciatica due to displacement of lumbar *INVALID FOR* Priority: M Ex-smoker [Z87.891] INVALID FOR* Priority: B More... Lung nodule [R91.1] INVALID FOR* Priority: B More... Mild persistent asthma without complication [J4*INVALID FOR* Priority: A May-Thurner syndrome [I87.1] INVALID FOR* Visit Notes: >> Christel Llanos Ma ThuMar 26, 2018 10:21 AM Status: Signed REVIEW OF SYSTEMS: General: The patient denies fatigue, denies weight loss, NOTES weight gain, denies feeling hot, and denies feelings of cold. Eyes: The patient denies glaucoma, denies eye injury/surgery, wears glasses or contacts. Ear/Nose/Throat: The patient NOTES allergies, denies hayfever, denies ear infections, and denies bloody noses. Cardiovascular: The patient denies chest pain, denies heart disease, denies high blood pressure,denies cardiac stent, denies prior heart attack, denies irregular heart beat, denies high cholesterol, denies poor circulation, denies heart failure, other cardiac issues, denies claudication, denies cold feet, denies peripheral arterial stent. Respiratory: The patient denies tuberculosis, denies pneumonia, denies frequent cough, denies pulmonary embolism, denies shortness of breath, and denies coughing up blood. Gastrointestinal: The patient denies difficulty swallowing, NOTES acid reflux, denies ulcers, denies vomiting, denies jaundice/hepatitis, NOTES gallbladder problems, denies black or tarry stools, NOTES hemorrhoids, NOTES bleeding from rectum, denies diverticulitis, denies constipation, denies diarrhea, denies loss of stool control, and denies hernias. Kidney/Bladder: The patient denies kidney stones, denies urine infections, and denies bloody urine. Skin: The patient denies a history of skin cancer, denies bleeding/changing moles, and denies a history of skin rash. Neurologic: The patient denies a history of epilepsy/convulsions, NOTES headaches, denies head/spinal injuries, and denies stroke/TIA. Psychiatric: The patient denies psychiatric medications, denies depression, and denies voices, denies substance abuse. Endocrine: The patient NOTES thyroid disorders, denies diabetes, and NOTES hormonal problems. Hematologic: The patient denies a history of bruising, denies bleeding, and denies anemia, denies blood clots. Infections: The patient NOTES a history of measles and mumps, denies rheumatic fever, and denies sexually transmitted diseases. Musculoskeletal: The patient denies back pain/injury, NOTES back problems, NOTES sciatica, denies knee/foot trouble, NOTES arthritis, or denies gout. When was patient's last Mammogram screening? May 2017 Last Colonoscopy: 2013 Christel Llanos Ma Prescriptions ordered this encounter Disp Refills Start End PEG 3350-ELECTROLYTES 236 GRAM-22.74* 1 Gabino* 0 03/26/2018 03/26/2018 Route: ORAL Sig: Take 4,000 mL by mouth one time only for 1 dose. Refer to printed prep instructions from your doctor. Letter Text Encounter Status:Closed by MD GABBY DAVE on 03/28/18 PROGRESS Observed: 03/17/2018 Status: COMPLETED Source: [place] 2:25 PM [facility] REPOSITORY HNO ID: [id number] Author: Clair Buckner Service: (none) Author Type: Physician Wood T[employer] Installation Helper Type: Progress Notes Filed: 03/17/2018 3:32 PM Note Text: Chief Complaint No chief complaint on file. JUAN ANTONIO Patiño is a 57 year old female who presents here today for worsening GERD symptoms. Patient states that over the past 5 months she had worsening GERD symptoms. States it is painful and bloated. No heartburn. She had protonix increased to 80mg on 02/25 but didn't have any improvement. Some changes in stool. Has had some blood in stool too. Increase flatulence. Had abdominal aorta stent placed on 03/10. Past medical history, appointments, medications, allergies reviewed. Previous Medical History PAST MEDICAL HISTORY Diagnosis Date - Chronic obstructive pulmonary disease (HCC) 01/03/2016 Patient reports diagnosis by CT - COPD (chronic obstructive pulmonary disease) (HCC) - Ex-smoker 10/19/2017 Started around 10-11 yo up to 1/2 PPD and quite 2009 - GERD (gastroesophageal reflux disease) - Headache(784.0) starting 47 years old - Hypothyroidism 06/11/2012 - Mild persistent asthma without complication 02/25/2018 Previous Surgical History PAST SURGICAL HISTORY Procedure Laterality Date - CHOLECYSTECTOMY 07/17/2015 - COLONOSCOP W/ OR W/O BRSH SPEC 09/13/13 few diverticula, repeat 10 yrs - EGD W/O [facility] SPECIMEN W/BX 09/13/13 gastritis - FECAL OCCULT BLOOD TEST 07/16/2017 negative - HEMORRHOIDECTOMY 07/28/2017 - LIGATION OF HEMORRHOID(S) 05/05/2016 - PAST SURGICAL HISTORY OF - PAST SURGICAL HISTORY OF breast cyst, right? - REMOVAL OF TONSILS,<14 Y/O Tonsillectomy - [facility] N/CARPAL TUNNEL SURG 05/26/12 Carpal tunnel decomp-bilateral - TOOTH EXTRACTION ~2009 all teeth extracted - TOTAL ABDOM HYSTERECTOMY 1994 [place], ovaries? menorrhagia, benign Family History FAMILY HISTORY Problem Relation Age of Onset - Ischemic Heart Disease Father 68 [place] 72 - Prostate Cancer Father - Coronary Artery Disease Father early 50's - other (ischemic bowel disease) Father ?diverticulosis - Alzheimer's Disease Maternal Grandmother - Lipids Mother - Thyroid Mother - Thyroid Sister Patient Allergies ALLERGIES Allergen Reactions - Laguna Swelling - Ciprofloxacin Other: See Comments Chest tightness - Dust Swelling - Gabapentin Swelling Throat swelling. - Insect Parts Swelling, Shortness of Breath, Myalgia Pt not sure what bit her but developed redness,difficulty swallowing and swelling of face and neck - Pollen Swelling - Morphine Vomiting Current Medications Current Outpatient Prescriptions on File Prior to Visit: pantoprazole DR (PROTONIX) 40 mg tablet Take 1 tablet by mouth twice daily. Take on empty stomach, 1/2 hr before meal. montelukast (SINGULAIR) 10 mg tablet Take 1 tablet by mouth daily at bedtime. Per respiratory therapy aide hydrOXYzine HCl (ATARAX) 25 mg tablet Take 1 tablet by mouth twice daily. Per respiratory therapy aide COMPOUNDED PRESCRIPTION One rollator walker with wheels, hand brakes and seat bench, Dx: M51.27, M54.16, M54.42, Z91.81 and R26.89 cholecalciferol, Vitamin D3, (VITAMIN D3) 50,000 unit cap capsule Take 1 capsule by mouth once each week. levothyroxine (SYNTHROID) 50 mcg tablet Take 1 tablet by mouth once daily. Take on empty stomach. For thyroid. albuterol HFA (PROVENTIL HFA, VENTOLIN HFA) 90 mcg/actuation inhaler Inhale 2 Puffs as instructed every 6 hours as needed. EPINEPHrine (EPIPEN) 0.3 mg/0.3 mL auto-injector Inject 0.3 mL intramuscularly as needed. SUMAtriptan (IMITREX) 100 mg tablet One table by mouth with onset of headache. Can repeat in and hour but only 2 tabs in 24 hrs. ibuprofen (MOTRIN) 800 mg tablet Take 800 mg by mouth every 6 hours as needed for Pain. naproxen (NAPROSYN) 500 mg tablet Take 1 tablet by mouth twice daily as needed (for pain/inflammation). Take with food. No current facility-administered medications on file prior to visit. Social History Social History Marital status: Legally Spouse name: Years of education: Number of children: 2 Occupational History Occupation Employer [employer] Social History Main Topics Smoking status: Former Smoker Packs/day: 0.50 Years: 20.00 Types: Cigarettes Quit date: 05/18/2008 Smokeless tobacco: Never Used Alcohol use: No Drug use: No Sexual activity: Yes Partners with: Male control/protection: Surgical Social History Narrative from her since 1990 ( did not show twice for divorce). Review of Symptoms REVIEW OF SYSTEMS See HPI EXAM: BP 108/70 (BP Site: Left Arm, BP Position: Sitting, BP Cuff Size: Large Adult) Pulse 76 Temp 36.8 ?C (98.2 ?F) (Tympanic) Resp 12 Wt 100.2 kg (221 lb) BMI 37.64 kg/m? General Appearance: Well appearing, alert, in no acute distress, well-hydrated, well nourished. and Obese. Lungs: Lungs clear to auscultation. No wheezing, rhonchi, rales. Heart: RRR without murmur, gallop, or rubs. No ectopy. Abdomen: Normal abdominal exam, Abdomen soft, non-tender. Bowel sounds normal. No masses, organomegaly. Extremities: No deformities, edema, skin discoloration, clubbing or cyanosis. Good capillary refill. . Health Maintenance List STEROID INHALER PRESCRIBED due on 03/18/2018 MAMMOGRAM due on 06/11/2018 COLORECTAL CANCER SCREENING,SEE MODIFIER due on 09/13/2018 ANNUAL PCP TEAM CHRONIC DISEASE VISIT due on 01/07/2019 DIABETES SCREEN due on 02/24/2021 LIPID SCREEN due on 12/07/2022 DTAP,TDAP,TD(2 - Td) due on 07/27/2024 INFLUENZA Completed HEPATITIS C SCREENING Completed Data reviewed Component Latest Ref Rng AND Units 10/20/2017 02/24/2018 Protein, Total 6.3 - 8.0 g/dL 6.3 Albumin 3.9 - 4.9 g/dL 4.1 Calcium 8.5 - 10.2 mg/dL 9.0 9.5 Bilirubin, Total 0.2 - 1.3 mg/dL 0.5 Alkaline Phosphatase 32 - 117 U/L 71 AST 13 - 35 U/L 26 Glucose 74 - 99 mg/dL 94 100 (H) BUN 7 - 21 mg/dL 13 10 Creatinine 0.58 - 0.96 mg/dL 0.74 0.73 Sodium 136 - 144 mmol/L 139 138 Potassium 3.7 - 5.1 mmol/L 4.0 4.5 Chloride 97 - 105 mmol/L 103 99 CO2 22 - 30 mmol/L 25 21 (L) Anion Gap 9 - 18 mmol/L 11 18 ALT 7 - 38 U/L 36 eGFR- >60 >60 eGFR-All Other Races . >60 >60 WBC 3.70 - 11.00 k/uL 6.34 RBC 3.90 - 5.20 m/uL 4.46 Hemoglobin 11.5 - 15.5 g/dL 13.8 Hematocrit 36.0 - 46.0 % 41.0 MCV 80.0 - 100.0 fL 91.9 MCH 26.0 - 34.0 pG 30.9 MCHC 30.5 - 36.0 g/dL 33.7 RDW-CV 11.5 - 15.0 % 13.0 Platelet Count 150 - 400 k/uL 381 MPV 9.0 - 12.7 fL 10.8 Absolute nRBC <0.01 k/uL <0.01 ASSESSMENT/PLAN: 1. Generalized abdominal pain - ICD9: 789.07, ICD10: R10.84 (primary diagnosis) - ? Etiology With nontender exam today, I do not feel that we need to get more imaging However with change in bowel and blood noted, would recommend scoped. We discussed h. Pylori testing but she has been on PPI and would have to stop that before testing. We will await GI/gen surg consult. (whoever can see her soonest) Will likely need scoped. In meantime, trial addition of zantac patient to go to ER If symptoms worsen again. - CONSULT TO GASTROENTEROLOGY - CONSULT TO GENERAL SURGERY 2. Diarrhea, unspecified type - ICD9: 787.91, ICD10: R19.7 As above - CONSULT TO GASTROENTEROLOGY - CONSULT TO GENERAL SURGERY 3. Blood in stool - ICD9: 578.1, ICD10: K92.1 - CONSULT TO GASTROENTEROLOGY - CONSULT TO GENERAL SURGERY CHRISTIANE LAMB Observed: 03/17/2018 Status: COMPLETED Source: [place] 2:20 PM [facility] REPOSITORY Office Visit (FAMPWS) YUNIER PATIÑO ([id number]) 1960 F Date Time Provider Department 03/17/18 2:20 PM GEORGINA BUCKNER) FAMPWS During your visit today, we recorded the following information about you: Temperature Pulse Respiration Blood pressure 98.2 degrees 76/minute 12/minute 108/70 Weight 100.2 kg ОЛЬГА BUCKNER PA-C 03/17/2018 3:32 PM Signed Chief Complaint No chief complaint on file. HPI Yunier Patiño is a 57 year old female who presents here today for worsening GERD symptoms. Patient states that over the past 5 months she had worsening GERD symptoms. States it is painful and bloated. No heartburn. She had protonix increased to 80mg on 02/25 but didn't have any improvement. Some changes in stool. Has had some blood in stool too. Increase flatulence. Had abdominal aorta stent placed on 03/10. Past medical history, appointments, medications, allergies reviewed. Previous Medical History PAST MEDICAL HISTORY Diagnosis Date - Chronic obstructive pulmonary disease (HCC) 01/03/2016 Patient reports diagnosis by CT - COPD (chronic obstructive pulmonary disease) (HCC) - Ex-smoker 10/19/2017 Started around 10-11 yo up to 1/2 PPD and quite 2008 - GERD (gastroesophageal reflux disease) - Headache(784.0) starting 47 years old - Hypothyroidism 06/11/2012 - Mild persistent asthma without complication 02/25/2018 Previous Surgical History PAST SURGICAL HISTORY Procedure Laterality Date - CHOLECYSTECTOMY 07/17/2015 - COLONOSCOP W/ OR W/O BRSH SPEC 09/13/13 few diverticula, repeat 10 yrs - EGD W/O [facility] SPECIMEN W/BX 09/13/13 gastritis - FECAL OCCULT BLOOD TEST 07/16/2017 negative - HEMORRHOIDECTOMY 07/28/2017 - LIGATION OF HEMORRHOID(S) 05/05/2016 - PAST SURGICAL HISTORY OF - PAST SURGICAL HISTORY OF breast cyst, right? - REMOVAL OF TONSILS,<14 Y/O Tonsillectomy - [facility] N/CARPAL TUNNEL SURG 05/26/12 Carpal tunnel decomp-bilateral - TOOTH EXTRACTION ~2009 all teeth extracted - TOTAL ABDOM HYSTERECTOMY 1994 [place], ovaries? menorrhagia, benign Family History FAMILY HISTORY Problem Relation Age of Onset - Ischemic Heart Disease Father 68 [place] 72 - Prostate Cancer Father - Coronary Artery Disease Father early 50's - other (ischemic bowel disease) Father ?diverticulosis - Alzheimer's Disease Maternal Grandmother - Lipids Mother - Thyroid Mother - Thyroid Sister Patient Allergies ALLERGIES Allergen Reactions - Laguna Swelling - Ciprofloxacin Other: See Comments Chest tightness - Dust Swelling - Gabapentin Swelling Throat swelling. - Insect Parts Swelling, Shortness of Breath, Myalgia Pt not sure what bit her but developed redness,difficulty swallowing and swelling of face and neck - Pollen Swelling - Morphine Vomiting Current Medications Current Outpatient Prescriptions on File Prior to Visit: pantoprazole DR (PROTONIX) 40 mg tablet Take 1 tablet by mouth twice daily. Take on empty stomach, 1/2 hr before meal. montelukast (SINGULAIR) 10 mg tablet Take 1 tablet by mouth daily at bedtime. Per respiratory therapy aide hydrOXYzine HCl (ATARAX) 25 mg tablet Take 1 tablet by mouth twice daily. Per respiratory therapy aide COMPOUNDED PRESCRIPTION One rollator walker with wheels, hand brakes and seat bench, Dx: M51.27, M54.16, M54.42, Z91.81 and R26.89 cholecalciferol, Vitamin D3, (VITAMIN D3) 50,000 unit cap capsule Take 1 capsule by mouth once each week. levothyroxine (SYNTHROID) 50 mcg tablet Take 1 tablet by mouth once daily. Take on empty stomach. For thyroid. albuterol HFA (PROVENTIL HFA, VENTOLIN HFA) 90 mcg/actuation inhaler Inhale 2 Puffs as instructed every 6 hours as needed. EPINEPHrine (EPIPEN) 0.3 mg/0.3 mL auto-injector Inject 0.3 mL intramuscularly as needed. SUMAtriptan (IMITREX) 100 mg tablet One table by mouth with onset of headache. Can repeat in and hour but only 2 tabs in 24 hrs. ibuprofen (MOTRIN) 800 mg tablet Take 800 mg by mouth every 6 hours as needed for Pain. naproxen (NAPROSYN) 500 mg tablet Take 1 tablet by mouth twice daily as needed (for pain/inflammation). Take with food. No current facility-administered medications on file prior to visit. Social History Social History Marital status: Legally Spouse name: Years of education: Number of children: 2 Occupational History Occupation Employer [employer] Social History Main Topics Smoking status: Former Smoker Packs/day: 0.50 Years: 20.00 Types: Cigarettes Quit date: 05/18/2008 Smokeless tobacco: Never Used Alcohol use: No Drug use: No Sexual activity: Yes Partners with: Male control/protection: Surgical Social History Narrative from her since 1990 ( did not show twice for divorce). Review of Symptoms REVIEW OF SYSTEMS See HPI EXAM: BP 108/70 (BP Site: Left Arm, BP Position: Sitting, BP Cuff Size: Large Adult) Pulse 76 Temp 36.8 ?C (98.2 ?F) (Tympanic) Resp 12 Wt 100.2 kg (221 lb) BMI 37.64 kg/m? General Appearance: Well appearing, alert, in no acute distress, well-hydrated, well nourished. and Obese. Lungs: Lungs clear to auscultation. No wheezing, rhonchi, rales. Heart: RRR without murmur, gallop, or rubs. No ectopy. Abdomen: Normal abdominal exam, Abdomen soft, non-tender. Bowel sounds normal. No masses, organomegaly. Extremities: No deformities, edema, skin discoloration, clubbing or cyanosis. Good capillary refill. . Health Maintenance List STEROID INHALER PRESCRIBED due on 03/18/2018 MAMMOGRAM due on 06/11/2018 COLORECTAL CANCER SCREENING,SEE MODIFIER due on 09/13/2018 ANNUAL PCP TEAM CHRONIC DISEASE VISIT due on 01/07/2019 DIABETES SCREEN due on 02/24/2021 LIPID SCREEN due on 12/07/2022 DTAP,TDAP,TD(2 - Td) due on 07/27/2024 INFLUENZA Completed HEPATITIS C SCREENING Completed Data reviewed Component Latest Ref Rng AND Units 10/20/2017 02/24/2018 Protein, Total 6.3 - 8.0 g/dL 6.3 Albumin 3.9 - 4.9 g/dL 4.1 Calcium 8.5 - 10.2 mg/dL 9.0 9.5 Bilirubin, Total 0.2 - 1.3 mg/dL 0.5 Alkaline Phosphatase 32 - 117 U/L 71 AST 13 - 35 U/L 26 Glucose 74 - 99 mg/dL 94 100 (H) BUN 7 - 21 mg/dL 13 10 Creatinine 0.58 - 0.96 mg/dL 0.74 0.73 Sodium 136 - 144 mmol/L 139 138 Potassium 3.7 - 5.1 mmol/L 4.0 4.5 Chloride 97 - 105 mmol/L 103 99 CO2 22 - 30 mmol/L 25 21 (L) Anion Gap 9 - 18 mmol/L 11 18 ALT 7 - 38 U/L 36 eGFR- >60 >60 eGFR-All Other Races . >60 >60 WBC 3.70 - 11.00 k/uL 6.34 RBC 3.90 - 5.20 m/uL 4.46 Hemoglobin 11.5 - 15.5 g/dL 13.8 Hematocrit 36.0 - 46.0 % 41.0 MCV 80.0 - 100.0 fL 91.9 MCH 26.0 - 34.0 pG 30.9 MCHC 30.5 - 36.0 g/dL 33.7 RDW-CV 11.5 - 15.0 % 13.0 Platelet Count 150 - 400 k/uL 381 MPV 9.0 - 12.7 fL 10.8 Absolute nRBC <0.01 k/uL <0.01 ASSESSMENT/PLAN: 1. Generalized abdominal pain - ICD9: 789.07, ICD10: R10.84 (primary diagnosis) - ? Etiology With nontender exam today, I do not feel that we need to get more imaging However with change in bowel and blood noted, would recommend scoped. We discussed h. Pylori testing but she has been on PPI and would have to stop that before testing. We will await GI/gen surg consult. (whoever can see her soonest) Will likely need scoped. In meantime, trial addition of zantac patient to go to ER If symptoms worsen again. - CONSULT TO GASTROENTEROLOGY - CONSULT TO GENERAL SURGERY 2. Diarrhea, unspecified type - ICD9: 787.91, ICD10: R19.7 As above - CONSULT TO GASTROENTEROLOGY - CONSULT TO GENERAL SURGERY 3. Blood in stool - ICD9: 578.1, ICD10: K92.1 - CONSULT TO GASTROENTEROLOGY - CONSULT TO GENERAL SURGERY CHRISTIANE LAMB PA-C 03/17/2018 2:55 PM Signed If worsening, don't hesitate to go to ER. Referring Provider: SELF [[id number]] Allergies As of Date: 03/17/2018 Noted Allergy Reaction LAGUNA 06/08/2012 7 - Swelling CIPROFLOXACIN 12/17/2015 14 - Other: See Comments Comments: Chest tightness DUST 06/08/2012 7 - Swelling GABAPENTIN 10/14/2017 7 - Swelling Comments: Throat swelling. INSECT PARTS 03/26/2016 7 - Swelling 12 - Shortness of Breath 17 - Myalgia Comments: Pt not sure what bit her but developed redness,difficulty swallowing and swelling of face and neck POLLEN 06/08/2012 7 - Swelling MORPHINE 06/08/2012 11 - Vomiting Date Reviewed: 03/17/2018 Reviewed by: Elizabeth Sheikh Ma - Fully Assessed Primary Visit Diagnosis:Generalized abdominal pain [R10.84] Other Visit Diagnoses:Diarrhea, unspecified type [R19.7] Blood in stool [K92.1] Order(s):aspirin, enteric coated (ECOTRIN) 325 mg EC tabletTake 1 tablet by mouth once daily. Take with food.Disp: 30 tabletRfl: 11 CONSULT TO GASTROENTEROLOGY [9010] Order #: [id number]: 1 ranitidine (ZANTAC) 150 mg tabletTake 1 tablet by mouth twice daily.Disp: 60 tabletRfl: 1 CONSULT TO GENERAL SURGERY [9011] Order #: [id number]: 1 Prescriptions as of 03/17/2018 Sig: PANTOPRAZOLE 40 MG TABLET,DEL* Take 1 tablet by mouth twice * MONTELUKAST 10 MG TABLET Take 1 tablet by mouth daily * HYDROXYZINE HCL 25 MG TABLET Take 1 tablet by mouth twice * COMPOUNDED PRESCRIPTION One rollator walker with whee* CHOLECALCIFEROL (VITAMIN D3) * Take 1 capsule by mouth once * LEVOTHYROXINE 50 MCG TABLET Take 1 tablet by mouth once d* ALBUTEROL SULFATE HFA 90 MCG/* Inhale 2 Puffs as instructed * EPINEPHRINE 0.3 MG/0.3 ML INJ* Inject 0.3 mL intramuscularly* SUMATRIPTAN 100 MG TABLET One table by mouth with onset* ASPIRIN 325 MG TABLET,DELAYED* Take 1 tablet by mouth once d* RANITIDINE 150 MG TABLET Take 1 tablet by mouth twice * Problem List As Of Date 03/17/2018 Noted Resolved Migraine without aura and without status migrai* Priority: A More... More... Acquired hypothyroidism [E03.9] INVALID FOR* Priority: A More... More... Encounter for screening for diabetes mellitus [*INVALID FOR* Encounter for screening for cardiovascular diso*INVALID FOR* Encounter for gynecological examination without*INVALID FOR* Priority: E More... Chronic obstructive pulmonary disease (HCC) [J4*INVALID FOR* Priority: A More... Hemorrhoids, internal, with bleeding [K64.8] INVALID FOR* Priority: C Well adult exam [Z00.00] INVALID FOR* Priority: E More... More... Chronic bilateral low back pain with bilateral *INVALID FOR* Priority: M Radiculopathy, lumbar region [M54.16] INVALID FOR* Priority: M Lumbago-sciatica due to displacement of lumbar *INVALID FOR* Priority: M Ex-smoker [Z87.891] INVALID FOR* Priority: B More... Lung nodule [R91.1] INVALID FOR* Priority: B More... Mild persistent asthma without complication [J4*INVALID FOR* Priority: A May-Thurner syndrome [I87.1] INVALID FOR* Other instructions from your clinician: If worsening, don't hesitate to go to ER. Prescriptions ordered this encounter Disp Refills Start End ASPIRIN 325 MG TABLET,DELAYED RELEASE 30 t* 11 03/17/2018 Class: Med Update Route: ORAL Sig: Take 1 tablet by mouth once daily. Take with food. RANITIDINE 150 MG TABLET 60 t* 1 03/17/2018 Route: ORAL Sig: Take 1 tablet by mouth twice daily. Medications Discontinued During This Encounter naproxen (NAPROSYN) 500 mg tablet 60 t* 2 09/29/2017 03/17/2018 Route: ORAL Sig: Take 1 tablet by mouth twice daily as needed (for pain/inflammation). Take with food. Disc: Reason for discontinue is not on file. ibuprofen (MOTRIN) 800 mg tablet 03/17/2018 Class: Historical Med Route: ORAL Sig: Take 800 mg by mouth every 6 hours as needed for Pain. Disc: Reason for discontinue is not on file. Encounter Status:Closed by ОЛЬГА RAMEY on 03/17/18 LINDA Observed: 03/17/2018 Status: COMPLETED Source: [place] 12:00 AM [facility] REPOSITORY Telephone (DDQ) YUNIER PATIÑO ([id number]) 1960 F Date Time Provider Department 03/17/18 MAYE AVINA DDBrendan During your visit today, we recorded the following information about you: Marlon Mcknight 03/17/2018 3:36 PM Signed PT called in and per her PCP, they suggested her get an EGD performed to further diagnose her ongoing issues. I told the PT that I would be sending this message, and that she will be getting a call back from us once a conversation was had with Dr. Avina. She understood and was OK with this. PT can be best reached on her cell, but if not you can leave a voicemail on her home phone. Thanks, Samuel Peacock 03/24/2018 10:22 AM Signed Look at message from marlon. Can I schedule this patient for an EGD? Maye Avina MD 03/24/2018 10:59 AM Signed No - see other msg from 03/17. Allergies As of Date: 03/17/2018 Noted Allergy Reaction LAGUNA 06/08/2012 7 - Swelling CIPROFLOXACIN 12/17/2015 14 - Other: See Comments Comments: Chest tightness DUST 06/08/2012 7 - Swelling GABAPENTIN 10/14/2017 7 - Swelling Comments: Throat swelling. INSECT PARTS 03/26/2016 7 - Swelling 12 - Shortness of Breath 17 - Myalgia Comments: Pt not sure what bit her but developed redness,difficulty swallowing and swelling of face and neck POLLEN 06/08/2012 7 - Swelling MORPHINE 06/08/2012 11 - Vomiting Date Reviewed: 03/17/2018 Reviewed by: Elizabeth Sheikh Ma - Fully Assessed Reason for Visit: EGD Scheduling [Other] TCB [1226] Reason For Visit History Recorded Prescriptions as of 03/17/2018 Sig: ASPIRIN 325 MG TABLET,DELAYED* Take 1 tablet by mouth once d* RANITIDINE 150 MG TABLET Take 1 tablet by mouth twice * PANTOPRAZOLE 40 MG TABLET,DEL* Take 1 tablet by mouth twice * MONTELUKAST 10 MG TABLET Take 1 tablet by mouth daily * HYDROXYZINE HCL 25 MG TABLET Take 1 tablet by mouth twice * COMPOUNDED PRESCRIPTION One rollator walker with whee* CHOLECALCIFEROL (VITAMIN D3) * Take 1 capsule by mouth once * LEVOTHYROXINE 50 MCG TABLET Take 1 tablet by mouth once d* ALBUTEROL SULFATE HFA 90 MCG/* Inhale 2 Puffs as instructed * EPINEPHRINE 0.3 MG/0.3 ML INJ* Inject 0.3 mL intramuscularly* SUMATRIPTAN 100 MG TABLET One table by mouth with onset* Problem List As Of Date 03/17/2018 Noted Resolved Migraine without aura and without status migrai* Priority: A More... More... Acquired hypothyroidism [E03.9] INVALID FOR* Priority: A More... More... Encounter for screening for diabetes mellitus [*INVALID FOR* Encounter for screening for cardiovascular diso*INVALID FOR* Encounter for gynecological examination without*INVALID FOR* Priority: E More... Chronic obstructive pulmonary disease (HCC) [J4*INVALID FOR* Priority: A More... Hemorrhoids, internal, with bleeding [K64.8] INVALID FOR* Priority: C Well adult exam [Z00.00] INVALID FOR* Priority: E More... More... Chronic bilateral low back pain with bilateral *INVALID FOR* Priority: M Radiculopathy, lumbar region [M54.16] INVALID FOR* Priority: M Lumbago-sciatica due to displacement of lumbar *INVALID FOR* Priority: M Ex-smoker [Z87.891] INVALID FOR* Priority: B More... Lung nodule [R91.1] INVALID FOR* Priority: B More... Mild persistent asthma without complication [J4*INVALID FOR* Priority: A May-Thurner syndrome [I87.1] INVALID FOR* Encounter Status:Closed by MARLON MCKNIGHT on 03/24/18 OPERATIVE NO Observed: 03/13/2018 Status: COMPLETED Source: [place] 12:00 AM CLINIC OTHER CAMPUS REPOSITORY [facility] ID: [id number] Author: Taco Kelly Service: Vascular Surgery Author Type: Physician Type: Operative Report Filed: 03/28/2018 2:48 PM Note Text: [facility] - Operative Report YUNIER PATIÑO : 1960 AGE: 57. SEX: F PATIENT TYPE: A HOSP SVC: GENS LOCATION: ATTENDING PHYSICIAN: DARIN NUMBER: [id number] DATE OF SURGERY/PROCEDURE: 03/10/2018 INCISION/PROCEDURE START TIME: INCISION CLOSE/PROCEDURE END TIME: PREOPERATIVE DIAGNOSIS: May-Thurner syndrome. POSTOPERATIVE DIAGNOSIS: May-Thurner syndrome. SURGEON: Taco Kelly MD BEEF SPLITTER: No Additional Staff SURGERY/PROCEDURE: 1. Left iliac venogram. 2. Intravascular ultrasound of left iliac vein and inferior vena cava. 3. Left common iliac vein stent, 18 mm x 60 mm Wallstent. ANESTHESIA: Procedural sedation. FINDINGS: Extrinsic compression of the left common iliac vein by the right common iliac artery. ESTIMATED BLOOD LOSS: Zero. SPECIMENS: None. COMPLICATIONS: None. INDICATION FOR PROCEDURE: The patient is a 57-year-old female with chronic swelling of the left lower extremity. Had noninvasive studies as well as an MRI that showed May-Thurner syndrome, compression of the left common iliac vein from the right common iliac artery. She is here for an IVUS, venogram, and possible intervention. DESCRIPTION OF PROCEDURE: The patient was brought down to the OR angio suite. Placed in supine position. Sign-in and time-out performed as per protocol. Access was obtained through the left common femoral vein using ultrasound guidance. An 8- Japanese sheath was placed. A venogram was performed followed by intravascular ultrasound that showed compression of the left common iliac vein. The patient was then appropriately heparinized. Appropriate measurements were taken of the iliac vein proximal and distal to the stenosis by compression. The exact area of compression and distance another one for the stent required was also determined by IVUS. The patient was heparinized appropriately. An 18 mm x 60 mm Wallstent was placed. Post dilated initially with a 14 and then 16 mm balloon. A repeat IVUS was performed after angioplasty. Excellent result was obtained. Brisk flow was seen through the venogram. Less flow through the collaterals was noted as well. An IVUS showed good apposition of the stent. Protamine was given. The catheter and wires were removed. The puncture site was closed with a stitch. Manual pressure was held for 5 minutes. FINDINGS: Initial venogram showed significant pelvic flow via the hypogastric artery because of stenosis, large collaterals were seen in the pelvis. The IVUS confirmed extrinsic compression. Following the stent placement, most flow seen through pelvis on venogram and good apposition of the stent was seen with IVUS. I was scrubbed for the entire procedure and did the entire procedure myself. Taco Kelly MD AR:[id number] /[id number] cc: BRIEF OP NOT Observed: 03/10/2018 Status: COMPLETED Source: [place] 12:44 PM [facility] REPOSITORY HNO ID: [id number] Author: Taco Kelly Service: Vascular Surgery Author Type: Physician Type: Brief Op Note Filed: 03/10/2018 12:47 PM Note Text: BRIEF OPERATIVE / PROCEDURE NOTE LOG ID: [id number] Surgery/Procedure Date: 03/10/2018 Incision/Procedure Start Time: Incision Close/Procedure End Time: Surgeon(s)/Proceduralist(s) and Wood Tile Installation Helper(s): Surgeon(s) and Role: * Taco Kelly - Primary No Additional Staff Procedure(s): venogram left ilac vein stent IVUS Anesthesia: Procedural Sedation ASA Class: Findings: left ilac vein stent IVUS Pulses: Estimated Blood Loss: 0 ml Specimens: None Complications: None Pre-Op/Pre-Procedure Diagnosis: may-thurner syndrome Post-Op/Post-Procedure Diagnosis: * No post-op diagnosis entered * SIGNATURE: Taco Kelly MD PATIENT NAME: Yunier Patiño DATE: March 10, 2018 TIME: 12:44 PM PAGER/CONTACT #: HISTORY PHYSICAL Observed: 03/10/2018 Status: COMPLETED Source: [place] 6:49 AM [facility] REPOSITORY [facility]NO ID: [id number] Author: Damaris Page (Pa) Service: (none) Author Type: Physician Wood Tile Installation Helper Type: HANDP Filed: 03/10/2018 7:13 AM Note Text: [facility] HISTORY AND PHYSICAL EXAMINATION PATIENT NAME: Yunier Patiño SERVICE DATE: 03/10/2018 SERVICE TIME: 6:49 AM PRIMARY CARE PHYSICIAN: Hany Cota MD Patient Active Hospital Problem List: May-Thurner syndrome (03/10/2018) Assessment: LEFT LOWER EXTREMITY PAIN, DVT, MAY THURNER SYNDROME Plan:Proceed with VENOGRAM EXTREMITIES SUBJECTIVE HPI: This is a 57 year old female who presents with a hx of left LE pain that has been occurring since August. Pt has a PMH as listed below which includes COPD, GERD, hypothyroidism. She presents today for venogram of the LEs to evaluate for possible DVT/ May Thurner syndrome with possible intervention. She states she has left LE pain > than right with occasional numbness/ tingling down into the left foot. She states sometimes this leg gives out on her. Imaging studies revealed the below results: IMPRESSION ? RIGHT SIDE - DEEP VEINS Negative for acute deep vein thrombosis in vessels visualized. ? RIGHT SIDE - SUPERFICIAL VEINS Negative for valvular incompetency in the great saphenous vein. Negative for valvular incompetency in the small saphenous vein. LEFT SIDE - DEEP VEINS Negative for acute deep vein thrombosis in vessels visualized. The external iliac vein from proximal to distal vessel appears patent and phasic. Unable to visualize the common iliac vein. Difficult visualization due to bowel gas. The mid to distal inferior vena cava appears patent with phasic flow. ? LEFT SIDE - SUPERFICIAL VEINS Negative for valvular incompetency in the great saphenous vein. She denies any chest pain, palpitations, difficulty breathing. She has SOB that she attributes to her COPD. She does not use oxygen but uses her inhaler several times a day. She denies nausea, vomiting. She denies URI, fever. She denies any prior issues with anesthesia. PAST MEDICAL HISTORY: PAST MEDICAL HISTORY Diagnosis Date - Chronic obstructive pulmonary disease (HCC) 01/03/2016 Patient reports diagnosis by CT - COPD (chronic obstructive pulmonary disease) (HCC) - Ex-smoker 10/19/2017 Started around 10-11 yo up to 1/2 PPD and quite 2008 - GERD (gastroesophageal reflux disease) - Headache(784.0) starting 47 years old - Hypothyroidism 06/11/2012 - Mild persistent asthma without complication 02/25/2018 PAST SURGICAL HISTORY: PAST SURGICAL HISTORY Procedure Laterality Date - CHOLECYSTECTOMY 07/17/2015 - COLONOSCOP W/ OR W/O [facility] SPEC 09/13/13 few diverticula, repeat 10 yrs - EGD W/O [facility] SPECIMEN W/BX 09/13/13 gastritis - FECAL OCCULT BLOOD TEST 07/16/2017 negative - HEMORRHOIDECTOMY 07/28/2017 - LIGATION OF HEMORRHOID(S) 05/05/2016 - PAST SURGICAL HISTORY OF - PAST SURGICAL HISTORY OF breast cyst, right? - REMOVAL OF TONSILS,<14 Y/O Tonsillectomy - REVISE MEDIAN N/CARPAL TUNNEL SURG 05/26/12 Carpal tunnel decomp-bilateral - TOOTH EXTRACTION ~2009 all teeth extracted - TOTAL ABDOM HYSTERECTOMY 1994 KENNEDY, ovaries? menorrhagia, benign FAMILY HISTORY: FAMILY HISTORY Problem Relation Age of Onset - Ischemic Heart Disease Father 68 [place] 72 - Prostate Cancer Father - Coronary Artery Disease Father early 50's - other (ischemic bowel disease) Father ?diverticulosis - Alzheimer's Disease Maternal Grandmother - Lipids Mother - Thyroid Mother - Thyroid Sister SOCIAL HISTORY: Social History Substance Use Topics - Smoking status: Former Smoker Packs/day: 0.50 Years: 20.00 Types: Cigarettes Quit date: 05/18/2008 - Smokeless tobacco: Never Used - Alcohol use No MEDICATIONS: Current Outpatient Prescriptions: montelukast (SINGULAIR) 10 mg tablet Take 1 tablet by mouth daily at bedtime. Per respiratory therapy aide Disp: Rfl: hydrOXYzine HCl (ATARAX) 25 mg tablet Take 1 tablet by mouth twice daily. Per respiratory therapy aide Disp: Rfl: COMPOUNDED PRESCRIPTION One rollator walker with wheels, hand brakes and seat bench, Dx: M51.27, M54.16, M54.42, Z91.81 and R26.89 Disp: 1 Device Rfl: 0 ibuprofen (MOTRIN) 800 mg tablet Take 800 mg by mouth every 6 hours as needed for Pain. Disp: Rfl: cholecalciferol, Vitamin D3, (VITAMIN D3) 50,000 unit cap capsule Take 1 capsule by mouth once each week. Disp: 12 capsule Rfl: 0 levothyroxine (SYNTHROID) 50 mcg tablet Take 1 tablet by mouth once daily. Take on empty stomach. For thyroid. Disp: 30 tablet Rfl: 5 albuterol HFA (PROVENTIL HFA, VENTOLIN HFA) 90 mcg/actuation inhaler Inhale 2 Puffs as instructed every 6 hours as needed. Disp: 1 Inhaler Rfl: 0 EPINEPHrine (EPIPEN) 0.3 mg/0.3 mL auto-injector Inject 0.3 mL intramuscularly as needed. Disp: 2 Each Rfl: 2 naproxen (NAPROSYN) 500 mg tablet Take 1 tablet by mouth twice daily as needed (for pain/inflammation). Take with food. Disp: 60 tablet Rfl: [address] (PROTONIX) 40 mg tablet Take 1 tablet by mouth daily before breakfast. Take on empty stomach, 1/2 hr before meal. Disp: 30 tablet Rfl: 5 SUMAtriptan (IMITREX) 100 mg tablet One table by mouth with onset of headache. Can repeat in and hour but only 2 tabs in 24 hrs. Disp: 12 tablet Rfl: 3 No current facility-administered medications for this encounter. CURRENT ALLERGIES: ALLERGIES Allergen Reactions - Laguna Swelling - Ciprofloxacin Other: See Comments Chest tightness - Dust Swelling - Gabapentin Swelling Throat swelling. - Insect Parts Swelling, Shortness of Breath, Myalgia Pt not sure what bit her but developed redness,difficulty swallowing and swelling of face and neck - Pollen Swelling - Morphine Vomiting COMPLETE REVIEW OF SYSTEMS: RESPIRATORY: Shortness of breath, See HPI CARDIOVASCULAR: Negative for chest pain, leg swelling, CHF or palpitations, See HPI GI: No nausea, vomiting, or diarrhea} MUSCULOSKELETAL: back painI. SKIN: Negative for lesions, rash, and itching OBJECTIVE PHYSICAL EXAM: Patient Vitals for the past 24 hrs: BP Pulse Resp SpO2 03/10/18 0633 123/66 78 16 96 % There is no height or weight on file to calculate BMI. GENERAL: Alert, no distress, cooperative, Obese EYES: PERRLA NECK: No jugulovenous distention, No carotid bruits, Supple, No thyromegaly, There is no lymphadenopathy. LUNGS: Lungs clear to auscultation, Good diaphragmatic excursion CARDIAC: Normal S1 and S2; no rubs, murmurs, or gallops NEURO: Grossly normal cognition, motor function, and cranial nerves III-XII PULSES: 2+ radial, 2+ carotid WOUND: Not applicable PRESSURE ULCERS: None SKIN: Skin color, texture, turgor normal. No rashes or lesions. Site Specific:no rashes, lesions, erythema; skin C/D/I AIRWAY: UVULA:not visible MOUTH:opens easily 2 finger breadths; upper, lower dentures DATA: CBC, BMP, reviewed No new labs today SIGNATURE: Damaris Page PA-C DATE: March 10, 2018 TIME: 6:49 AM I personally interviewed, examined, confirmed and edited the history documented by the Physician Wood Tile Installation Helper. Physician Signature: CBC Collected: 02/24/2018 Status: F Source: [place] 11:26 AM [facility] REPOSITORY TYPE CODE TESTS RESULT OUT OF REFERENCE UNITS RANGE LAB WBC 3.70-11.00 k/uL WBC 6.34 LAB RBC 3.90-5.20 m/uL RBC 4.46 LAB HGB 11.5-15.5 g/dL Hemoglobin 13.8 LAB HCT 36.0-46.0 % Hematocrit 41.0 LAB MCV 80.0-100.0 fL MCV 91.9 LAB MCH 26.0-34.0 pG MCH 30.9 LAB MCHC 30.5-36.0 g/dL MCHC 33.7 LAB RDWCV 11.5-15.0 % RDW-CV 13.0 LAB PLTCT 150-400 k/uL Platelet Count 381 LAB MPV 9.0-12.7 fL MPV 10.8 LAB ABSNUC <0.01 k/uL Absolute nRBC <0.01 Performed By: #### CBC, BMP #### [facility] [address] [id number] BASIC METABOLIC PANL Collected: 02/24/2018 Status: F Source: [place] 11:26 AM [facility] REPOSITORY TYPE CODE TESTS RESULT OUT OF REFERENCE UNITS RANGE LAB GLU 74-99 mg/dL High Glucose 100 Result Comment: The [place] Diabetes Association (ADA) provides guidance for cutoff values for fasting glucose and random glucose. The ADA defines fasting as no caloric intake for at least 8 hours. Fas ting plasma glucose results between 100 to 125 mg/dL indicate increased risk for diabetes (prediabetes). Fasting plasma glucose results greater than or equal to 126 mg/dL meet the criteria for diagnosis of diabetes. In the absence of unequivocal hyperglycemia, results should be confirmed by repeat testing. In a patient with classic symptoms of hyperglycemia or hyperglycemic crisis, random plasma glucose results greater than or equal to 200 mg/dL meet the criteria for diagnosis of diabetes. Reference: Standards of Medical Care in Diabetes 2016, [place] [employer]. Diabetes Care. 2016.39(Suppl 1). LAB BUN 7-21 mg/dL BUN 10 LAB CRET 0.58-0.96 mg/dL Creatinine 0.73 LAB NA 136-144 mmol/L Sodium 138 LAB K 3.7-5.1 mmol/L Potassium 4.5 LAB CL 97-105 mmol/L Chloride 99 LAB CO2 22-30 mmol/L CO2 Low 21 LAB AGAP 9-18 mmol/L Anion Gap 18 LAB CA 8.5-10.2 mg/dL Calcium, Total 9.5 LAB GFRAA eGFR- Amer. >60 LAB GFRNAA . eGFR-All Other Races >60 Result Comment: eGFR (Estimated GFR) Units of measure: mL/min/1.73 meters squared eGFR is derived from the reexpressed MDRD Study equation using the following parameters: serum creatinine, age, gender and race. The creatinine assay has been calibrated to be traceable to IDMS. An eGFR <60 mL/min/1.73m2 for >3 months is consistent with chronic kidney disease. Refer to KDOQI guidelines for clinical interpretation. In patients with unstable renal function, e.g. those with acute kidney injury, the eGFR may not accurately reflect actual GFR. Performed By: #### CBC, BMP #### [facility] [address], [place] [address] MRI THORACIC SPINE Observed: 02/24/2018 Status: F Source: [place] WO/W IVCON 11:10 AM [facility] REPOSITORY * * *Final Report* * * DATE OF EXAM: Feb 24 2018 11:10AM [facility] 0326 - MRI THORACIC SPINE WO/W IVCON / PROCEDURE REASON: multiple diagnoses * * * * Physician Interpretation * * * * EXAMINATION: MRI THORACIC SPINE WO/W IVCON CLINICAL HISTORY: Chronic left-sided low back pain radiating to the left leg. Indeterminate lesion in the T11 vertebral body on prior MRI. TECHNIQUE: Routine thoracic spine MR protocol with and without intravenous gadolinium. MQ: [id number] Contrast: IV administration of 20ml ml of Dotarem COMPARISON: MRI lumbar spine 09/24/2017, CTA 10/08/2017 RESULT: Counting reference: Lumbosacral junction. For the purposes of this report, L4-5 is considered the level of the iliac crest and there are 5 lumbar-type vertebrae. Anatomic Variants: None. Alignment: Alignment is anatomic. Cord: The visualized cord is within normal limits of signal intensity and morphology. There is no pathologic intradural enhancement on postcontrast imaging. Bone marrow signal/fracture: T1 and T2 hyperintense intraosseous hemangioma in the T7 vertebral body, slightly left of midline. Additional T1 and T2 hyperintense lesions in the inferior T3 vertebral body and left T9 vertebral body are also compatible with an intraosseous hemangioma. The previously seen 5 mm lesion in the T11 vertebral body demonstrates mild surrounding T1 hyperintensity, is unchanged from prior MRI, corresponds to a mildly sclerotic lesion on prior CTA and is most likely an intraosseous hemangioma. No evidence of pathologic marrow infiltration. No evidence of prior fracture. Posterior elements are normal in morphology and alignment. Thoracic paraspinal soft tissues: The paraspinal soft tissues are within normal limits. Canal and foramina: The thoracic canal and foramina are patent. IMPRESSION: No significant canal or neural foraminal stenoses in the thoracic spine. 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 Normal morphology and signal of the thoracic cord without pathologic enhancement. Anatomic Variant: None. L4-5 is considered the level of the iliac crest and assume there are 5 lumbar-type vertebrae. Migratory Farm Hand: ARIA Transcribe Date/Time: Feb 24 2018 12:59P Dictated by : LAINE COLEY MD This examination was interpreted and the report reviewed and electronically signed by: LAINE COLEY MD on Feb 24 2018 1:13PM EST [id number] Observed: 02/24/2018 Status: COMPLETED Source: [place] 10:58 AM [facility] [place] REPOSITORY HNO ID: [id number] Author: Sobia Farias (Rt) Service: (none) Author Type: Conventional Machinist Type: Progress Notes Filed: 02/24/2018 10:59 AM Note Text: Radiology Service Progress Note PATIENT NAME: Yunier Patiño DATE OF SERVICE: February 24, 2018 TIME: 10:58 AM PATIENT IDENTITY VERIFICATION COMPLETED USING TWO (2) METHODS: Patient confirmed name verbally and Date of . PATIENT GENDER DATA: Female. status: : No status: NO. PATIENT RELEVANT IMPLANT DATA REVIEWED: Yes CONTRAST INDUCED NEPHROPATHY RISK FACTORS: Not applicable CREATININE: Creatinine Date Value Ref Range Status 10/20/2017 0.74 0.58 - 0.96 mg/dL Final 05/13/2016 0.69 (L) 0.70 - 1.40 mg/dL Final 03/23/2016 0.72 0.70 - 1.40 mg/dL Final eGFR-All Other Races Date Value Ref Range Status 10/20/2017 >60 . Final Comment: eGFR (Estimated GFR) Units of measure: mL/min/1.73 meters squared eGFR is derived from the reexpressed MDRD Study equation using the following parameters: serum creatinine, age, gender and race. The creatinine assay has been calibrated to be traceable to IDMS. An eGFR <60 mL/min/1.73m2 for >3 months is consistent with chronic kidney disease. Refer to KDOQI guidelines for clinical interpretation. In patients with unstable renal function, e.g. those with acute kidney injury, the eGFR may not accurately reflect actual GFR. eGFR- Date Value Ref Range Status 10/20/2017 >60 Final P.O.C.T. RESULTS: N/A February 24, 2018 RADIOLOGIST NOTIFIED?: No ALLERGIES: Reviewed and unchanged CONTRAST ALLERGY: NO. PERIPHERAL IV ACCESS: Ambulatory: IV type: A peripheral IV was started in the Right antecubital site with a Angio cath: 22 gauge., Site assessment: Clean,Dry and Intact, Site disposition Discontinued RADIOLOGY DEPARTMENT: MR; Exam(s) Completed: Spine: Thoracic spine SIGNED BY: RT Jarrett February 24, 2018 10:58 AM PROGRESS Observed: 02/24/2018 Status: COMPLETED Source: [place] 10:57 AM [facility] REPOSITORY [facility] ID: [id number] Author: Sobia Farias (Rt) Service: (none) Author Type: Conventional Machinist Type: Progress Notes Filed: 02/24/2018 10:58 AM Note Text: Radiology Service Progress Note PATIENT NAME: Yunier Patiño DATE OF SERVICE: February 24, 2018 TIME: 10:57 AM PATIENT IDENTITY VERIFICATION COMPLETED USING TWO (2) METHODS: Patient confirmed name verbally and Date of . PATIENT GENDER DATA: Female. status: : No status: NO. PATIENT RELEVANT IMPLANT DATA REVIEWED: Yes RADIOLOGY DEPARTMENT: MR; Exam(s) Completed: Lower MSK: Pelvis, bilateral PERIPHERAL IV DATA: Not applicable SIGNED BY: RT Jarrett February 24, 2018 10:57 AM MRI PELVIS ORTHO Observed: 02/24/2018 Status: F Source: [place] GEN WO IVCON 10:24 AM [facility] REPOS[facility]ORY * * *Final Report* * * DATE OF EXAM: Feb 24 2018 10:24AM [facility] [id number] - MRI PELVIS ORTHO GEN WO IVCON / PROCEDURE REASON: multiple diagnoses * * * * Physician Interpretation * * * * MRI Pelvis INDICATION: Pressure in pelvis when walking .. COMPARISON: MRI lumbar spine 09/24/2017, CTA abdomen and pelvis 10/08/2017 TECHNIQUE: Multiplanar PD, T1 and T2 weighted images. RESULT: Redemonstrated are enlarged presacral pelvic veins as previously described on CTA of 10/08/2017. Hip joints: Within normal limits. Lack of joint fluid limits evaluation of labrum and cartilage. Sacroiliac joints: Mild degenerative changes of the right sacroiliac joint. Pubic symphysis: Within normal limits. Tendons: Within normal limits including the iliopsoas, hamstring, gluteal and rectus femoris tendons. Muscles: Within normal limits. Bone Marrow: Within normal limits. No fractures or marrow replacing lesions. Other: Mild degenerative changes of the lower lumbar spine. Visualized sciatic nerves are unremarkable bilaterally. Colonic diverticulosis. Tiny right fat-containing inguinal hernia. IMPRESSION: No acute musculoskeletal abnormality. Migratory Farm Hand: ARIA Transcribe Date/Time: Feb 24 2018 11:43A Dictated by : LAINEY TAVERAS DO This examination was interpreted and the report reviewed and electronically signed by: BENTLEY JOHNSON MD on Feb 24 2018 4:45PM EST [id number] PROGRESS Observed: 02/09/2018 Status: COMPLETED Source: [place] 9:15 AM [facility] [place] REPOSITORY [facility] ID: [id number] Author: Dillon Garcia Service: (none) Author Type: Physician Type: Progress Notes Filed: 02/10/2018 3:38 PM Note Text: SPINE CARE PATH LOW BACK PAIN: CHRONIC FOLLOW UP ? SUBJECTIVE HISTORY OF PRESENT ILLNESS: Reason for Visit: low back pain ? Yunier Patiño is seen for low back pain. She is s/p left L4 transforaminal epidural steroid injection on 10/29/[address] Perico Lincoln with no relief per patient. She had an appointment on 11/25/17 at which time a Neurology consultation was recommended. She states she has an appointment scheduled with an outside Neurologist. ? She states she feels she has weakness in her low back and left leg. She states she was ambulating with a cane November 19 when she fell and fractured her left ankle. She is following an Orthopedic surgeon for her ankle fracture. She is currently ambulating with a rolling walker. She has iliac vein stenting surgery planned at the end of February. ? She admits to pain in the left low back that radiates into the left lateral thigh. She has occasional paresthesias in the left foot. Her pain is aggravated by sitting up straight or standing. Her pain is alleviated by flexing forward or extension. She has a burning sensation in the low back. She has also had intermittent stinging pain in her right 3rd toe that started 8 months ago. She has decreased appetite. ? She has taken gabapentin but had to stop due to side effects. She is taking naproxen 500 mg as needed. ? She is s/p hemorrhoidectomy on 07/28/17. For the past 3 months she states she has had difficulty with valsalva and has had incontinence of bowel about 4 times. She feels she has decreased sensation. ? Interim treatment has included NSAIDS for 3 Months or Greater (Ibuprofen and Naproxen), Muscle relaxants, Opioids, Physical therapy: Date(s) October 2017, Epidural blocks: Date(s) see above and Membrane Stabilizers. ? Adherence with treatment has been excellent. ? Adverse Effects: None ? Interim studies Obtained and Reviewed: MRI reviewed ? 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 ? PED RED FLAGS YELLOW AND BLUE FLAGS No No-Significant Injury to Spine No-Use of Steroids for Prolonged Duration YES-Loss of Bowel/Bladder Control, Genital/Anal Numbness No-Recent Use of Intravenous (IV) Drugs No-Difficulty Keeping Balance when Walking No-Progressive Weakness in Arms/Legs No-History of Any Type of Cancer No-Unable to Find Position of Comfort No-Pain at Night that Disturbs Sleep No-Recent Elevated Temp with Unknown Cause No-Diagnosed with Osteoporosis No-Unintentional Weight Loss or Gain ? No-Neg Attitude; Back Pain is Disabling No-Avoiding Activity (for Fear of Pain) No-Depression or Anxiety Disorders No-Social Problems No-Substance Use Disorder No-Job Dissatisfaction No-Financial Disincentives ? *PED (Patient Entered Data) osteoporosis flag will display for females 55 years or older and males 75 years or older. ? ACTIVE PROBLEM LIST Migraine Without Aura and Without Status Migrainosus, Not Intractable Acquired Hypothyroidism Encounter for Screening for Diabetes Mellitus Encounter for Screening for Cardiovascular Disorders Encounter for Gynecological Examination Without Abnormal Finding Chronic Obstructive Pulmonary Disease (Hcc) Hemorrhoids, Internal, With Bleeding Well Adult Exam Chronic Bilateral Low Back Pain With Bilateral Sciatica Radiculopathy, Lumbar Region Lumbago-Sciatica Due to Displacement of Lumbar Intervertebral Disc Ex-Smoker Lung Nodule ? PAST MEDICAL HISTORY PAST MEDICAL HISTORY Diagnosis Date - COPD (chronic obstructive pulmonary disease) (HCC) ? - Ex-smoker 10/19/2017 ? Started around 10-11 yo up to 1/2 PPD and quite 2008 - GERD (gastroesophageal reflux disease) ? - Headache(784.0) ? ? starting 47 years old - Hypothyroidism 06/11/2012 ? PAST SURGICAL HISTORY PAST SURGICAL HISTORY Procedure Laterality Date - CHOLECYSTECTOMY ? 07/17/2015 ? - COLONOSCOP W/ OR W/O [facility] SPEC ? 09/13/13 ? few diverticula, repeat 10 yrs - EGD W/O [facility] SPECIMEN W/BX ? 09/13/13 ? gastritis - FECAL OCCULT BLOOD TEST ? 07/16/2017 ? negative - HEMORRHOIDECTOMY ? 07/28/2017 ? - LIGATION OF HEMORRHOID(S) ? 05/05/2016 ? - PAST SURGICAL HISTORY OF ? ? ? - PAST SURGICAL HISTORY OF ? ? ? breast cyst, right? - REMOVAL OF TONSILS,<14 Y/O ? ? ? Tonsillectomy - REVISE MEDIAN N/CARPAL TUNNEL SURG ? 05/26/12 ? Carpal tunnel decomp-bilateral - TOOTH EXTRACTION ? ~2009 ? all teeth extracted - TOTAL ABDOM HYSTERECTOMY ? 1994 ? KENNEDY, ovaries? menorrhagia, benign ? SOCIAL HISTORY Social History Marital status: Single Spouse name: Years of education: Number of children: 2 ? Occupational History Occupation Employer Comment [employer] ? Social History Main Topics Smoking status: Former Smoker Packs/day: 0.50 Years: 20.00 Types: Cigarettes Quit date: 05/18/2008 Smokeless tobacco: Never Used Alcohol use: No Drug use: No Sexual activity: Yes Partners with: Male control/protection: Surgical ? Social History Narrative from her since 1990 ( did not show twice for divorce). ? ? FAMILY HISTORY FAMILY HISTORY Problem Relation Age of Onset - Ischemic Heart Disease Father 68 ? [place] 72 - Prostate Cancer Father ? - Coronary Artery Disease Father ? ? early 50's - other (ischemic bowel disease) Father ? ? ?diverticulosis - Alzheimer's Disease Maternal Grandmother ? - Lipids Mother ? - Thyroid Mother ? - Thyroid Sister ? ? ALLERGIES ALLERGIES Allergen Reactions - Laguna Swelling - Ciprofloxacin Other: See Comments ? ? Chest tightness - Dust Swelling - Gabapentin Swelling ? ? Throat swelling. - Insect Parts Swelling, Shortness of Breath, Myalgia ? ? Pt not sure what bit her but developed redness,difficulty swallowing and swelling of face and neck - Pollen Swelling - Morphine Vomiting ? ? CURRENT MEDICATIONS: CURRENT MEDICATIONS ibuprofen (MOTRIN) 800 mg tablet Take 800 mg by mouth every 6 hours as needed for Pain. cholecalciferol, Vitamin D3, (VITAMIN D3) 50,000 unit cap capsule Take 1 capsule by mouth once each week. levothyroxine (SYNTHROID) 50 mcg tablet Take 1 tablet by mouth once daily. Take on empty stomach. For thyroid. albuterol HFA (PROVENTIL HFA, VENTOLIN HFA) 90 mcg/actuation inhaler Inhale 2 Puffs as instructed every 6 hours as needed. EPINEPHrine (EPIPEN) 0.3 mg/0.3 mL auto-injector Inject 0.3 mL intramuscularly as needed. naproxen (NAPROSYN) 500 mg tablet Take 1 tablet by mouth twice daily as needed (for pain/inflammation). Take with food. pantoprazole DR (PROTONIX) 40 mg tablet Take 1 tablet by mouth daily before breakfast. Take on empty stomach, 1/2 hr before meal. SUMAtriptan (IMITREX) 100 mg tablet One table by mouth with onset of headache. Can repeat in and hour but only 2 tabs in 24 hrs. ? REVIEW OF SYSTEMS: Review of Systems Constitutional: Negative Eyes: Negative Hent: Negative Cardiovascular: Negative Respiratory Positive for SOB with exertion GI: Negative Positive for Urgency and Incontinence Endocrine: Negative Musculoskeletal Positive for Back Pain, Stiff Joints and Muscle Pain Integumentary Positive for Itching Heme/Lymph: Negative Allergy/Immunologic: Negative Neurologic Positive for Headache, Numbness/Tingling and Weakness Psychiatric: Negative Patient's Review of Systems has been reviewed with the patient and updated as appropriate. ? OBJECTIVE PHYSICAL EXAM: BP 106/72 Pulse 78 Resp 18 ? GENERAL APPEARANCE: Well nourished, well developed, and no apparent distress. NEURO PSYCH: Patient oriented to person, place, and time. Mood pleasant. Benign affect. CARDIOVASCULAR: Palpable pulses. No edema noted. No varicosities. SKIN: Head, neck, trunk, and extremities dry, intact and without lesions. LYMPHATICS: No palpable nodes in cervical or axillae areas. Groin exam deferred. MUSCULOSKELETAL ? ??VISUAL INSPECTION ? CERVICAL: WNL ? THORACIC: WNL ? LUMBAR: WNL ??? PALPATION: ? SPINOUS PROCESS: No pain. ? PARASPINALS: Pain over the left greater than right PSIS. SPINE ROM: LUMBAR ROM: Decreased ROM due to pain CERVICAL ROM: Full ROM Without Pain MUSCLE BULK: Normal and symmetrical in the upper AND lower extremities. MUSCLE TONE: Normal. MOTOR: 5/5 in all muscle groups. SENSORY: Decreased sensation below the L3 on the left side. GAIT: slow with RW REFLEXES: +2 to bilateral U/L extremities. PROPRIOCEPTION: Normal. LONG TRACT SIGNS: No clonus. No Hoffmans. BABINSKI: Downward response STRAIGHT LEG TEST: Ipsilateral: Negative. Contralateral: Negative. PERIPHERAL JOINT ROM: HIP ROM: Full ROM Without Pain SHOULDER ROM: Full ROM Without Pain Negative thigh thrust, pelvic compression, and ARASH L'HERMITTES SIGN: Negative. SPURLING'S TEST: Negative. ? Neuro Tests: Cranial Nerves: Normal mood and affect. CNII-XII grossly intact. ? ? ASSESSMENT/PLAN (M54.42, G89.29) Chronic left-sided low back pain with left-sided sciatica (primary encounter diagnosis) ? The patient presents with chronic low back pain associated with left lower limb weakness, paresthesias, and incontinence of stool. She is following with Vascular Surgery for multiple vascular lesions seen in the pelvis associated with May-Thurner syndrome. Based on the location of varicosities at the anterior sacrum with close association of the S2 nerve, this could explain some of the patient's symptoms. She also has undetermined small mass in the T11 vertebral body. Per patient plan for iliac stenting in the next month. ? Will order EMG of the left lower extremity to further evaluate. ? She is following with her PCP for workup of lung nodule as well. ? Imaging Ordered: None ? Destinee Rice MD Spine Medicine Fellow PGY 5 February 09, 2018 I examined the patient and discussed case, diagnostics and treatment plan with Clare Altamirano M.D. who initially evaluated the patient. I agree with treatment plan and recommendations. At this time patient with diffuse neurologic changes in the left lower limb not clearly related to lumbar radiculopathy. In light of her persistent pain and weakness we have scheduled the patient for an EMG left lower limb to define better any clear evidence of axonal damage as an explanation for her weakness. She continues her workup regarding her vascular issues May Thurner syndrome No evidence of surgical intervention. No evidence of further interventional procedures. We have scheduled patient for an MRI of the pelvis to rule out any other potential explanation for her lower limb pain. In light of the poly-dermatomal probably myotome all findings we have scheduled patient for EMG. I personally reviewed patient's lumbar MRI imaging. On the left there is minimal foraminal narrowing no evidence of severe central canal stenosis. No spine explanation for her lower limb symptoms. Gout images were reviewed up to about the mid thoracic spine. No evidence of large disc herniations or severe cord compression On exam no evidence of hyperreflexia or other upper motor neuron signs to suspect myelopathy as an explanation for her symptoms, however, despite vascular findings may still warrant further workup Dillon Garcia DO CNOV Observed: 02/09/2018 Status: COMPLETED Source: [place] 7:40 AM [facility] REPOSITORY Office Visit (SPMEST) RYANYUNIER WATSON ([id number]) 1960 F Date Time Provider Department 02/09/18 7:40 AM DILLON GARCIA During your visit today, we recorded the following information about you: Pulse Respiration Blood pressure 78/minute 18/minute 106/72 Destinee Rice MD, MD 02/09/2018 8:11 AM Signed Chronic Low Back Pain Overview: ? Eighty to 90 percent of people in the [place] will experience an episode of back pain at some time during their lives. ? Chronic back pain refers to an episode of pain that lasts longer than 12 weeks. ? Many times, a specific structural explanation for the pain is not found but medical treatment can successfully improve symptoms and allow return to normal activities. ? In the absence of major structural deformity, surgery is unlikely to be helpful in relieving back pain. Treatment: ? Back pain is almost always best treated with conservative (non-surgical) measures. ? Prolonged bed rest is not recommended and generally should not exceed 24-48 hours. Gradually resuming normal activities as soon as you are able is best. ? Your physician may recommend physical therapy to customize an active exercise program which will speed your recovery. ? Over the counter, non-prescription pain relievers such as acetaminophen (Tylenol) and ibuprofen may be used in your treatment of pain. Your physician may prescribe a non-steroidal anti-inflammatory drug (NSAID) to use as an alternative. ? Other medications, particularly antidepressants, may be prescribed for pain relief even in the absence of depression. ? Yoga, acupuncture, and massage are helpful in some persons with chronic back pain. ? Opioid or narcotic medications are not recommended, and you should refrain from the use of such medications. In fact, use of these drugs may prolong the amount of time it takes for you to recover. ? Spinal epidural injections (blocks) are not recommended for treatment of back pain. Injection of spinal joints (facets) is rarely recommended for treatment of spinal arthritis pain. Follow Up ? See your health care provider if: ? You experience fever ? The pain progressively worsens ? The pain progressively moves from your back into your leg(s) ? You notice progressive weakness in your legs ? You experience problems in your balance or walking ? You notice difficulty controlling your bowels or bladder These are warning signs or red flags that require prompt, urgent medical attention. For more information on low back pain, visit our website at [email or web address] and search lower back pain. SIGNATURE: Dillon Jordan DO Jose PATIENT NAME: Yunier Patiño DATE: February 09, 2018 TIME: 8:11 AM Dillon Garcia DO 02/10/2018 3:38 PM Signed SPINE CARE PATH LOW BACK PAIN: CHRONIC FOLLOW UP ? SUBJECTIVE HISTORY OF PRESENT ILLNESS: Reason for Visit: low back pain ? Yunier Patiño is seen for low back pain. She is s/p left L4 transforaminal epidural steroid injection on 10/29/[address] Perico Lincoln with no relief per patient. She had an appointment on 11/25/17 at which time a Neurology consultation was recommended. She states she has an appointment scheduled with an outside Neurologist. ? She states she feels she has weakness in her low back and left leg. She states she was ambulating with a cane November 19 when she fell and fractured her left ankle. She is following an Orthopedic surgeon for her ankle fracture. She is currently ambulating with a rolling walker. She has iliac vein stenting surgery planned at the end of February. ? She admits to pain in the left low back that radiates into the left lateral thigh. She has occasional paresthesias in the left foot. Her pain is aggravated by sitting up straight or standing. Her pain is alleviated by flexing forward or extension. She has a burning sensation in the low back. She has also had intermittent stinging pain in her right 3rd toe that started 8 months ago. She has decreased appetite. ? She has taken gabapentin but had to stop due to side effects. She is taking naproxen 500 mg as needed. ? She is s/p hemorrhoidectomy on 07/28/17. For the past 3 months she states she has had difficulty with valsalva and has had incontinence of bowel about 4 times. She feels she has decreased sensation. ? Interim treatment has included NSAIDS for 3 Months or Greater (Ibuprofen and Naproxen), Muscle relaxants, Opioids, Physical therapy: Date(s) October 2017, Epidural blocks: Date(s) see above and Membrane Stabilizers. ? Adherence with treatment has been excellent. ? Adverse Effects: None ? Interim studies Obtained and Reviewed: MRI reviewed ? 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 ? PED RED FLAGS YELLOW AND BLUE FLAGS No No-Significant Injury to Spine No-Use of Steroids for Prolonged Duration YES-Loss of Bowel/Bladder Control, Genital/Anal Numbness No-Recent Use of Intravenous (IV) Drugs No-Difficulty Keeping Balance when Walking No-Progressive Weakness in Arms/Legs No-History of Any Type of Cancer No-Unable to Find Position of Comfort No-Pain at Night that Disturbs Sleep No-Recent Elevated Temp with Unknown Cause No-Diagnosed with Osteoporosis No-Unintentional Weight Loss or Gain ? No-Neg Attitude; Back Pain is Disabling No-Avoiding Activity (for Fear of Pain) No-Depression or Anxiety Disorders No-Social Problems No-Substance Use Disorder No-Job Dissatisfaction No-Financial Disincentives ? *PED (Patient Entered Data) osteoporosis flag will display for females 55 years or older and males 75 years or older. ? ACTIVE PROBLEM LIST Migraine Without Aura and Without Status Migrainosus, Not Intractable Acquired Hypothyroidism Encounter for Screening for Diabetes Mellitus Encounter for Screening for Cardiovascular Disorders Encounter for Gynecological Examination Without Abnormal Finding Chronic Obstructive Pulmonary Disease (Hcc) Hemorrhoids, Internal, With Bleeding Well Adult Exam Chronic Bilateral Low Back Pain With Bilateral Sciatica Radiculopathy, Lumbar Region Lumbago-Sciatica Due to Displacement of Lumbar Intervertebral Disc Ex-Smoker Lung Nodule ? PAST MEDICAL HISTORY PAST MEDICAL HISTORY Diagnosis Date - COPD (chronic obstructive pulmonary disease) (HCC) ? - Ex-smoker 10/19/2017 ? Started around 10-11 yo up to 1/2 PPD and quite 2009 - GERD (gastroesophageal reflux disease) ? - Headache(784.0) ? ? starting 47 years old - Hypothyroidism 06/11/2012 ? PAST SURGICAL HISTORY PAST SURGICAL HISTORY Procedure Laterality Date - CHOLECYSTECTOMY ? 07/17/2015 ? - COLONOSCOP W/ OR W/O [facility] SPEC ? 09/13/13 ? few diverticula, repeat 10 yrs - EGD W/O [facility] SPECIMEN W/BX ? 09/13/13 ? gastritis - FECAL OCCULT BLOOD TEST ? 07/16/2017 ? negative - HEMORRHOIDECTOMY ? 07/28/2017 ? - LIGATION OF HEMORRHOID(S) ? 05/05/2016 ? - PAST SURGICAL HISTORY OF ? ? ? - PAST SURGICAL HISTORY OF ? ? ? breast cyst, right? - REMOVAL OF TONSILS,<14 Y/O ? ? ? Tonsillectomy - REVISE MEDIAN N/CARPAL TUNNEL SURG ? 05/26/12 ? Carpal tunnel decomp-bilateral - TOOTH EXTRACTION ? ~2009 ? all teeth extracted - TOTAL ABDOM HYSTERECTOMY ? 1994 ? KENNEDY, ovaries? menorrhagia, benign ? SOCIAL HISTORY Social History Marital status: Single Spouse name: Years of education: Number of children: 2 ? Occupational History Occupation Employer Comment [employer] ? Social History Main Topics Smoking status: Former Smoker Packs/day: 0.50 Years: 20.00 Types: Cigarettes Quit date: 05/18/2008 Smokeless tobacco: Never Used Alcohol use: No Drug use: No Sexual activity: Yes Partners with: Male control/protection: Surgical ? Social History Narrative from her since 1990 ( did not show twice for divorce). ? ? FAMILY HISTORY FAMILY HISTORY Problem Relation Age of Onset - Ischemic Heart Disease Father 68 ? [place] 72 - Prostate Cancer Father ? - Coronary Artery Disease Father ? ? early 50's - other (ischemic bowel disease) Father ? ? ?diverticulosis - Alzheimer's Disease Maternal Grandmother ? - Lipids Mother ? - Thyroid Mother ? - Thyroid Sister ? ? ALLERGIES ALLERGIES Allergen Reactions - Laguna Swelling - Ciprofloxacin Other: See Comments ? ? Chest tightness - Dust Swelling - Gabapentin Swelling ? ? Throat swelling. - Insect Parts Swelling, Shortness of Breath, Myalgia ? ? Pt not sure what bit her but developed redness,difficulty swallowing and swelling of face and neck - Pollen Swelling - Morphine Vomiting ? ? CURRENT MEDICATIONS: CURRENT MEDICATIONS ibuprofen (MOTRIN) 800 mg tablet Take 800 mg by mouth every 6 hours as needed for Pain. cholecalciferol, Vitamin D3, (VITAMIN D3) 50,000 unit cap capsule Take 1 capsule by mouth once each week. levothyroxine (SYNTHROID) 50 mcg tablet Take 1 tablet by mouth once daily. Take on empty stomach. For thyroid. albuterol HFA (PROVENTIL HFA, VENTOLIN HFA) 90 mcg/actuation inhaler Inhale 2 Puffs as instructed every 6 hours as needed. EPINEPHrine (EPIPEN) 0.3 mg/0.3 mL auto-injector Inject 0.3 mL intramuscularly as needed. naproxen (NAPROSYN) 500 mg tablet Take 1 tablet by mouth twice daily as needed (for pain/inflammation). Take with food. pantoprazole DR (PROTONIX) 40 mg tablet Take 1 tablet by mouth daily before breakfast. Take on empty stomach, 1/2 hr before meal. SUMAtriptan (IMITREX) 100 mg tablet One table by mouth with onset of headache. Can repeat in and hour but only 2 tabs in 24 hrs. ? REVIEW OF SYSTEMS: Review of Systems Constitutional: Negative Eyes: Negative Hent: Negative Cardiovascular: Negative Respiratory Positive for SOB with exertion GI: Negative Positive for Urgency and Incontinence Endocrine: Negative Musculoskeletal Positive for Back Pain, Stiff Joints and Muscle Pain Integumentary Positive for Itching Heme/Lymph: Negative Allergy/Immunologic: Negative Neurologic Positive for Headache, Numbness/Tingling and Weakness Psychiatric: Negative Patient's Review of Systems has been reviewed with the patient and updated as appropriate. ? OBJECTIVE PHYSICAL EXAM: BP 106/72 Pulse 78 Resp 18 ? GENERAL APPEARANCE: Well nourished, well developed, and no apparent distress. NEURO PSYCH: Patient oriented to person, place, and time. Mood pleasant. Benign affect. CARDIOVASCULAR: Palpable pulses. No edema noted. No varicosities. SKIN: Head, neck, trunk, and extremities dry, intact and without lesions. LYMPHATICS: No palpable nodes in cervical or axillae areas. Groin exam deferred. MUSCULOSKELETAL ? ??VISUAL INSPECTION ? CERVICAL: WNL ? THORACIC: WNL ? LUMBAR: WNL ??? PALPATION: ? SPINOUS PROCESS: No pain. ? PARASPINALS: Pain over the left greater than right PSIS. SPINE ROM: LUMBAR ROM: Decreased ROM due to pain CERVICAL ROM: Full ROM Without Pain MUSCLE BULK: Normal and symmetrical in the upper AND lower extremities. MUSCLE TONE: Normal. MOTOR: 5/5 in all muscle groups. SENSORY: Decreased sensation below the L3 on the left side. GAIT: slow with RW REFLEXES: +2 to bilateral U/L extremities. PROPRIOCEPTION: Normal. LONG TRACT SIGNS: No clonus. No Hoffmans. BABINSKI: Downward response STRAIGHT LEG TEST: Ipsilateral: Negative. Contralateral: Negative. PERIPHERAL JOINT ROM: HIP ROM: Full ROM Without Pain SHOULDER ROM: Full ROM Without Pain Negative thigh thrust, pelvic compression, and ARASH L'HERMITTES SIGN: Negative. SPURLING'S TEST: Negative. ? Neuro Tests: Cranial Nerves: Normal mood and affect. CNII-XII grossly intact. ? ? ASSESSMENT/PLAN (M54.42, G89.29) Chronic left-sided low back pain with left- sided sciatica (primary encounter diagnosis) ? The patient presents with chronic low back pain associated with left lower limb weakness, paresthesias, and incontinence of stool. She is following with Vascular Surgery for multiple vascular lesions seen in the pelvis associated with May-Thurner syndrome. Based on the location of varicosities at the anterior sacrum with close association of the S2 nerve, this could explain some of the patient's symptoms. She also has undetermined small mass in the T11 vertebral body. Per patient plan for iliac stenting in the next month. ? Will order EMG of the left lower extremity to further evaluate. ? She is following with her PCP for workup of lung nodule as well. ? Imaging Ordered: None ? Destinee Rice MD Spine Medicine Fellow PGY 5 February 09, 2018 I examined the patient and discussed case, diagnostics and treatment plan with Clare Altamirano M.D. who initially evaluated the patient. I agree with treatment plan and recommendations. At this time patient with diffuse neurologic changes in the left lower limb not clearly related to lumbar radiculopathy. In light of her persistent pain and weakness we have scheduled the patient for an EMG left lower limb to define better any clear evidence of axonal damage as an explanation for her weakness. She continues her workup regarding her vascular issues May Thurner syndrome No evidence of surgical intervention. No evidence of further interventional procedures. We have scheduled patient for an MRI of the pelvis to rule out any other potential explanation for her lower limb pain. In light of the poly-dermatomal probably myotome all findings we have scheduled patient for EMG. I personally reviewed patient's lumbar MRI imaging. On the left there is minimal foraminal narrowing no evidence of severe central canal stenosis. No spine explanation for her lower limb symptoms. Gout images were reviewed up to about the mid thoracic spine. No evidence of large disc herniations or severe cord compression On exam no evidence of hyperreflexia or other upper motor neuron signs to suspect myelopathy as an explanation for her symptoms, however, despite vascular findings may still warrant further workup Dillon Garcia, DO Referring Provider: SELF [[id number]] Allergies As of Date: 02/09/2018 Noted Allergy Reaction LAGUNA 06/08/2012 7 - Swelling CIPROFLOXACIN 12/17/2015 14 - Other: See Comments Comments: Chest tightness DUST 06/08/2012 7 - Swelling GABAPENTIN 10/14/2017 7 - Swelling Comments: Throat swelling. 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 No IV access, insert saline lock prior to the beginning of sedation, infusion, injection of imaging exam. Discontinue saline lock post exam. If Pt. has a central line or IVAD, may access for administration according to line specific nursing protocol. Once exam is complete flush line and de- access according to line specific nursing protocol in the MR contrast administration guidelines link.Disp: 1 EachRfl: 0 Prescriptions as of 02/09/2018 Sig: IBUPROFEN 800 MG TABLET Take 800 mg by mouth every 6 * CHOLECALCIFEROL (VITAMIN D3) * Take 1 capsule by mouth once * LEVOTHYROXINE 50 MCG TABLET Take 1 tablet by mouth once d* ALBUTEROL SULFATE HFA 90 MCG/* Inhale 2 Puffs as instructed * EPINEPHRINE 0.3 MG/0.3 ML INJ* Inject 0.3 mL intramuscularly* NAPROXEN 500 MG TABLET Take 1 tablet by mouth twice * PANTOPRAZOLE 40 MG TABLET,DEL* Take 1 tablet by mouth daily * SUMATRIPTAN 100 MG TABLET One table by mouth with onset* IV CONTRAST (RADIOLOGY PROCED* MRI TSP Inject, intravenousl* Problem List As Of Date 02/09/2018 Noted Resolved Migraine without aura and without status migrai* Priority: A More... More... Acquired hypothyroidism [E03.9] INVALID FOR* Priority: A More... More... Encounter for screening for diabetes mellitus [*INVALID FOR* Encounter for screening for cardiovascular diso*INVALID FOR* Encounter for gynecological examination without*INVALID FOR* Priority: E More... Chronic obstructive pulmonary disease (HCC) [J4*INVALID FOR* Priority: B More... Hemorrhoids, internal, with bleeding [K64.8] INVALID FOR* Priority: C Well adult exam [Z00.00] INVALID FOR* Priority: E More... More... Chronic bilateral low back pain with bilateral *INVALID FOR* Priority: M Radiculopathy, lumbar region [M54.16] INVALID FOR* Priority: M Lumbago-sciatica due to displacement of lumbar *INVALID FOR* Priority: M Ex-smoker [Z87.891] INVALID FOR* Priority: B More... Lung nodule [R91.1] INVALID FOR* Priority: B More... Other instructions from your clinician: Chronic Low Back Pain Overview: ? Eighty to 90 percent of people in the [place] will experience an episode of back pain at some time during their lives. ? Chronic back pain refers to an episode of pain that lasts longer than 12 weeks. ? Many times, a specific structural explanation for the pain is not found but medical treatment can successfully improve symptoms and allow return to normal activities. ? In the absence of major structural deformity, surgery is unlikely to be helpful in relieving back pain. Treatment: ? Back pain is almost always best treated with conservative (non-surgical) measures. ? Prolonged bed rest is not recommended and generally should not exceed 24-48 hours. Gradually resuming normal activities as soon as you are able is best. ? Your physician may recommend physical therapy to customize an active exercise program which will speed your recovery. ? Over the counter, non-prescription pain relievers such as acetaminophen (Tylenol) and ibuprofen may be used in your treatment of pain. Your physician may prescribe a non-steroidal anti-inflammatory drug (NSAID) to use as an alternative. ? Other medications, particularly antidepressants, may be prescribed for pain relief even in the absence of depression. ? Yoga, acupuncture, and massage are helpful in some persons with chronic back pain. ? Opioid or narcotic medications are not recommended, and you should refrain from the use of such medications. In fact, use of these drugs may prolong the amount of time it takes for you to recover. ? Spinal epidural injections (blocks) are not recommended for treatment of back pain. Injection of spinal joints (facets) is rarely recommended for treatment of spinal arthritis pain. Follow Up ? See your health care provider if: ? You experience fever ? The pain progressively worsens ? The pain progressively moves from your back into your leg(s) ? You notice progressive weakness in your legs ? You experience problems in your balance or walking ? You notice difficulty controlling your bowels or bladder These are warning signs or red flags that require prompt, urgent medical attention. For more information on low back pain, visit our website at [email or web address] and search lower back pain. SIGNATURE: Dillon Garcia DO PATIENT NAME: Yunier Patiño DATE: February 09, 2018 TIME: 8:11 AM Prescriptions ordered this encounter Disp Refills Start End IV CONTRAST (RADIOLOGY PROCEDURE) 1 Ea* 0 02/09/2018 02/10/2018 Class: In Office Sig: MRI TSP Inject, intravenously, once for 1 dose. No IV access, insert saline lock prior to the beginning of sedation, infusion, injection of imaging exam. Discontinue saline lock post exam. If Pt. has a central line or IVAD, may access for administration according to line specific nursing protocol. Once exam is complete flush line and de-access according to line specific nursing protocol in the MR contrast administration guidelines link. Medications Discontinued During This Encounter hydrocodone/acetaminophen (VICODIN O* 02/09/2018 Class: Historical Med Route: ORAL Sig: Take by mouth. Disc: Course of therapy completed cyclobenzaprine (FLEXERIL) 10 mg tab* 8 ta* 0 10/19/2017 02/09/2018 Route: ORAL Sig: Take 1 tablet by mouth every 8 hours as needed. Disc: Course of therapy completed Encounter Status:Closed by DILLON GARCIA DO on 02/10/18 HOSP Observed: 02/08/2018 Status: COMPLETED Source: [place] 12:00 AM CLINIC OTHER CAMPUS REPOSITORY Patient:Yunier Patiño MRN: <[id number]> Height:5' 4.25(1.632 m) Weight:No patient weight recorded within the last 30 days. Outpatient Medications as of 03/10/18: montelukast (SINGULAIR) 10 mg tablet hydrOXYzine HCl (ATARAX) 25 mg tablet COMPOUNDED PRESCRIPTION ibuprofen (MOTRIN) 800 mg tablet cholecalciferol, Vitamin D3, (VITAMIN D3) 50,000 unit cap capsule levothyroxine (SYNTHROID) 50 mcg tablet albuterol HFA (PROVENTIL HFA, VENTOLIN HFA) 90 mcg/actuation inhaler EPINEPHrine (EPIPEN) 0.3 mg/0.3 mL auto-injector naproxen (NAPROSYN) [address] (PROTONIX) 40 mg tablet SUMAtriptan (IMITREX) 100 mg tablet Admission/Clinic Administered Medications as of 03/10/18: Patient has no admission medications. Problem List: Migraine without aura and without status migrainosus, not intractable [G43.009] Acquired hypothyroidism [E03.9] Encounter for screening for diabetes mellitus [Z13.1] Encounter for screening for cardiovascular disorders [Z13.6] Encounter for gynecological examination without abnormal finding [Z01.419] Chronic obstructive pulmonary disease (HCC) [J44.9] Hemorrhoids, internal, with bleeding [K64.8] Well adult exam [Z00.00] Chronic bilateral low back pain with bilateral sciatica [M54.42, M54.41, G89.29] Radiculopathy, lumbar region [M54.16] Lumbago-sciatica due to displacement of lumbar intervertebral disc [M51.27] Ex-smoker [Z87.891] Lung nodule [R91.1] Mild persistent asthma without complication [J45.30] May-Thurner syndrome [I87.1] Allergies: Laguna Ciprofloxacin Dust Gabapentin Insect Parts Pollen Morphine Date Verified: 03/10/18 Lab Values Lab Value Units Date High Low POTA* 4.5 mmol/L 02/24/2018 5.1 3.7 BENEDICTO* 41.0 % 02/24/2018 46.0 36.0 Progress Notes ([facility]): Christel Gonzalez LPN 02/25/2018 3:37 PM Signed Patient saw [facility] Dr. Areli Hopkins. She was put on Montelukast Sod 10 mg 1 per day and Hydroxyzine HCL 25 mg taking 1 twice a day. She will also be getting weekly injections. She was advised regarding her inhaler to use twice in the am and twice in the pm and in between if needed. Dx asthma and COPD. Patient wanted you to be made aware of all this. Christel Gonzalez LPN Progress Notes ([facility]): Elizabeth Ocasio RT, [place] 02/24/2018 10:59 AM Signed Radiology Service Progress Note PATIENT NAME: Yunier Patiño DATE OF SERVICE: February 24, 2018 TIME: 10:58 AM PATIENT IDENTITY VERIFICATION COMPLETED USING TWO (2) METHODS: Patient confirmed name verbally and Date of . PATIENT GENDER DATA: Female. status: : No status: NO. PATIENT RELEVANT IMPLANT DATA REVIEWED: Yes CONTRAST INDUCED NEPHROPATHY RISK FACTORS: Not applicable CREATININE: Creatinine Date Value Ref Range Status 10/20/2017 0.74 0.58 - 0.96 mg/dL Final 05/13/2016 0.69 (L) 0.70 - 1.40 mg/dL Final 03/23/2016 0.72 0.70 - 1.40 mg/dL Final eGFR-All Other Races Date Value Ref Range Status 10/20/2017 >60 . Final Comment: eGFR (Estimated GFR) Units of measure: mL/min/1.73 meters squared eGFR is derived from the reexpressed MDRD Study equation using the following parameters: serum creatinine, age, gender and race. The creatinine assay has been calibrated to be traceable to IDMS. An eGFR <60 mL/min/1.73m2 for >3 months is consistent with chronic kidney disease. Refer to KDOQI guidelines for clinical interpretation. In patients with unstable renal function, e.g. those with acute kidney injury, the eGFR may not accurately reflect actual GFR. eGFR- Date Value Ref Range Status 10/20/2017 >60 Final P.O.C.T. RESULTS: N/A February 24, 2018 RADIOLOGIST NOTIFIED?: No ALLERGIES: Reviewed and unchanged CONTRAST ALLERGY: NO. PERIPHERAL IV ACCESS: Ambulatory: IV type: A peripheral IV was started in the Right antecubital site with a Angio cath: 22 gauge., Site assessment: Clean,Dry and Intact, Site disposition Discontinued RADIOLOGY DEPARTMENT: MR; Exam(s) Completed: Spine: Thoracic spine SIGNED BY: RT Jarrett February 24, 2018 10:58 AM PROGRESS Observed: 02/04/2018 Status: COMPLETED Source: [place] 1:18 PM [facility] [place] REPOSITORY HNO ID: [id number] Author: Taco Kelly Service: (none) Author Type: Physician Type: Progress Notes Filed: 02/04/2018 2:06 PM Note Text: [facility] DEPARTMENT OF VASCULAR SURGERY OUTPATIENT VISIT DATE February 04, 2018 CHIEF COMPLAINT: Left leg sweeling HISTORY OF PRESENT ILLNESS: Consultation at the request of Dr. Celina Ellington for an opinion regarding LLE pain . A copy of my final recommendations will be communicated back to the requesting physician by way of shared Medical record or letter via US mail. Ms. Patiño is a 57 year old female who presents today with complaints of Left lower extremity pain and weakness. Patient states the leg is gives out and she keeps falling down. Her entire leg hurt from the lumbar to her foot. It started end of August when she tried to leaf size picker something from floor lie she pulled some muscle. She s unable to work since that time. Has had epidural injections that made it worse Pain level ranges around 5/10. Has been having intense back pain. left leg tingles . Hx of COPD, quit smoking 2008 She has had CTA showing 2 small masses in the midline upon S2 best seen axial 120 through 127 of sequence 5. ?The largest one left para midline measures approximately 2.3 cm and the smaller right paramidline measures approximately 1.5 cm. The larger round mass corresponds to abnormality was reported on the MRI. ?These structures demonstrate homogeneous intensity similar to a adjacent tortuosity internal iliac veins and appears to be in continuation with these veins.. MRI showing ; There is a T1 and T2 hypointense saccular lesion in the presacral soft tissues ventral to the S2 level measuring 2.3 x 2.0 x 3.0 cm with mild bony remodeling of the ventral S2 vertebral body which enhances heterogeneously on postcontrast imaging. ?This likely represents a vascular structure and may reflect left LE study; The external iliac vein from proximal to distal vessel appears patent and phasic. Unable to visualize the common iliac vein. Difficult visualization due to bowel gas. The mid to distal inferior vena cava appears patent with phasic flow. ? I personally obtained the history of present illness. Taco Kelly MD PAST MEDICAL HISTORY Diagnosis Date - COPD (chronic obstructive pulmonary disease) (HCC) - Ex-smoker 10/19/2017 Started around 10-11 yo up to 1/2 PPD and quite 2008 - GERD (gastroesophageal reflux disease) - Headache(784.0) starting 47 years old - Hypothyroidism 06/11/2012 PAST SURGICAL HISTORY Procedure Laterality Date - CHOLECYSTECTOMY 07/17/2015 - COLONOSCOP W/ OR W/O BRSH SPEC 09/13/13 few diverticula, repeat 10 yrs - EGD W/O BRS SPECIMEN W/BX 09/13/13 gastritis - FECAL OCCULT BLOOD TEST 07/16/2017 negative - HEMORRHOIDECTOMY 07/28/2017 - LIGATION OF HEMORRHOID(S) 05/05/2016 - PAST SURGICAL HISTORY OF - PAST SURGICAL HISTORY OF breast cyst, right? - REMOVAL OF TONSILS,<14 Y/O Tonsillectomy - [facility] N/CARPAL TUNNEL SURG 05/26/12 Carpal tunnel decomp-bilateral - TOOTH EXTRACTION ~2009 all teeth extracted - TOTAL ABDOM HYSTERECTOMY 1994 KENNEDY, ovaries? menorrhagia, benign SOCIAL HISTORY Social History Substance Use Topics - Smoking status: Former Smoker Packs/day: 0.50 Years: 20.00 Types: Cigarettes Quit date: 05/18/2008 - Smokeless tobacco: Never Used - Alcohol use No FAMILY HISTORY Problem Relation Age of Onset - Ischemic Heart Disease Father 68 [place] 72 - Prostate Cancer Father - Coronary Artery Disease Father early 50's - other (ischemic bowel disease) Father ?diverticulosis - Alzheimer's Disease Maternal Grandmother - Lipids Mother - Thyroid Mother - Thyroid Sister ALLERGIES: ALLERGIES Allergen Reactions - Laguna Swelling - Ciprofloxacin Other: See Comments Chest tightness - Dust Swelling - Gabapentin Swelling Throat swelling. - Insect Parts Swelling, Shortness of Breath, Myalgia Pt not sure what bit her but developed redness,difficulty swallowing and swelling of face and neck - Pollen Swelling - Morphine Vomiting MEDICATIONS: ibuprofen (MOTRIN) 800 mg tablet Take 800 mg by mouth every 6 hours as needed for Pain. cholecalciferol, Vitamin D3, (VITAMIN D3) 50,000 unit cap capsule Take 1 capsule by mouth once each week. levothyroxine (SYNTHROID) 50 mcg tablet Take 1 tablet by mouth once daily. Take on empty stomach. For thyroid. albuterol HFA (PROVENTIL HFA, VENTOLIN HFA) 90 mcg/actuation inhaler Inhale 2 Puffs as instructed every 6 hours as needed. EPINEPHrine (EPIPEN) 0.3 mg/0.3 mL auto-injector Inject 0.3 mL intramuscularly as needed. cyclobenzaprine (FLEXERIL) 10 mg tablet Take 1 tablet by mouth every 8 hours as needed. naproxen (NAPROSYN) 500 mg tablet Take 1 tablet by mouth twice daily as needed (for pain/inflammation). Take with food. pantoprazole DR (PROTONIX) 40 mg tablet Take 1 tablet by mouth daily before breakfast. Take on empty stomach, 1/2 hr before meal. SUMAtriptan (IMITREX) 100 mg tablet One table by mouth with onset of headache. Can repeat in and hour but only 2 tabs in 24 hrs. hydrocodone/acetaminophen (VICODIN ORAL) Take by mouth. REVIEW OF SYSTEMS: GENERAL: Denies fever, chills, night sweats, or changes in weight. HEENT: negative NEURO: Denies any TIA/amaurosis symptoms, weakness or paralysis. RESPIRATORY: COPD GI: Negative for abdominal discomfort No change in bowel habits : Negative for dysuria Negative for hematuria RENAL: No history of ESRD No history of Renal Insufficiency SKIN: Negative for rash, ulcers, lesions I personally interviewed, confirmed and edited the above information if obtained by others. PHYSICAL EXAMINATION: BP 112/67 Pulse 79 General: Obese Skin: No lesions, rashes or ulcerations; normal color and turgor. HEENT: NC/AT Carotid: Pulse 4/4 bilaterally Abd: ND/NT Extremities: left leg swelling Neuro: Awake, alert, and oriented., Gait normal. Sensation grossly intact., CN II-XII grossly intact. IMPRESSION: 1. Chronic Left leg swelling imaging consistent May-thurner comfirmed on CT and MRI syndrome effecting lifestyle 2. COPD 3. Chronic Back pain PLAN: Left iliac venogram and IVUS with possible stent MD Effie Victoria RN CNOV Observed: 02/04/2018 Status: COMPLETED Source: [place] 1:00 PM [facility] REPOSITORY Office Visit (HIVSRM) YUNIER PATIÑO ([id number]) 1960 F Date Time Provider Department 02/04/18 1:00 PM [facility] During your visit today, we recorded the following information about you: Pulse Blood pressure 79/minute 112/67 Taco Kelly MD 02/04/2018 2:06 PM Signed [facility] DEPARTMENT OF [facility]ASCULAR SURGERY OUTPATIENT VISIT DATE February 04, 2018 CHIEF COMPLAINT: Left leg sweeling HISTORY OF PRESENT ILLNESS: Consultation at the request of Dr. Celina Ellington for an opinion regarding LLE pain . A copy of my final recommendations will be communicated back to the requesting physician by way of shared Medical record or letter via [place] mail. Ms. Patiño is a 57 year old female who presents today with complaints of Left lower extremity pain and weakness. Patient states the leg is gives out and she keeps falling down. Her entire leg hurt from the lumbar to her foot. It started end of August when she tried to leaf size picker something from floor lie she pulled some muscle. She s unable to work since that time. Has had epidural injections that made it worse Pain level ranges around 5/10. Has been having intense back pain. left leg tingles . Hx of COPD, quit smoking 2008 She has had CTA showing 2 small masses in the midline upon S2 best seen axial 120 through 127 of sequence 5. ?The largest one left para midline measures approximately 2.3 cm and the smaller right paramidline measures approximately 1.5 cm. The larger round mass corresponds to abnormality was reported on the MRI. ?These structures demonstrate homogeneous intensity similar to a adjacent tortuosity internal iliac veins and appears to be in continuation with these veins.. MRI showing ; There is a T1 and T2 hypointense saccular lesion in the presacral soft tissues ventral to the S2 level measuring 2.3 x 2.0 x 3.0 cm with mild bony remodeling of the ventral S2 vertebral body which enhances heterogeneously on postcontrast imaging. ?This likely represents a vascular structure and may reflect left LE study; The external iliac vein from proximal to distal vessel appears patent and phasic. Unable to visualize the common iliac vein. Difficult visualization due to bowel gas. The mid to distal inferior vena cava appears patent with phasic flow. ? I personally obtained the history of present illness. Taco Kelly MD PAST MEDICAL HISTORY Diagnosis Date - COPD (chronic obstructive pulmonary disease) (HCC) - Ex-smoker 10/19/2017 Started around 10-11 yo up to 1/2 PPD and quite 2008 - GERD (gastroesophageal reflux disease) - Headache(784.0) starting 47 years old - Hypothyroidism 06/11/2012 PAST SURGICAL HISTORY Procedure Laterality Date - CHOLECYSTECTOMY 07/17/2015 - COLONOSCOP W/ OR W/O [facility] SPEC 09/13/13 few diverticula, repeat 10 yrs - EGD W/O [facility] SPECIMEN W/BX 09/13/13 gastritis - FECAL OCCULT BLOOD TEST 07/16/2017 negative - HEMORRHOIDECTOMY 07/28/2017 - LIGATION OF HEMORRHOID(S) 05/05/2016 - PAST SURGICAL HISTORY OF - PAST SURGICAL HISTORY OF breast cyst, right? - REMOVAL OF TONSILS,<14 Y/O Tonsillectomy - [facility] N/CARPAL TUNNEL SURG 05/26/12 Carpal tunnel decomp-bilateral - TOOTH EXTRACTION ~2009 all teeth extracted - TOTAL ABDOM HYSTERECTOMY 1994 K[place]Y, ovaries? menorrhagia, benign SOCIAL HISTORY Social History Substance Use Topics - Smoking status: Former Smoker Packs/day: 0.50 Years: 20.00 Types: Cigarettes Quit date: 05/18/2008 - Smokeless tobacco: Never Used - Alcohol use No FAMILY HISTORY Problem Relation Age of Onset - Ischemic Heart Disease Father 68 [place] 72 - Prostate Cancer Father - Coronary Artery Disease Father early 50's - other (ischemic bowel disease) Father ?diverticulosis - Alzheimer's Disease Maternal Grandmother - Lipids Mother - Thyroid Mother - Thyroid Sister ALLERGIES: ALLERGIES Allergen Reactions - Laguna Swelling - Ciprofloxacin Other: See Comments Chest tightness - Dust Swelling - Gabapentin Swelling Throat swelling. - Insect Parts Swelling, Shortness of Breath, Myalgia Pt not sure what bit her but developed redness,difficulty swallowing and swelling of face and neck - Pollen Swelling - Morphine Vomiting MEDICATIONS: ibuprofen (MOTRIN) 800 mg tablet Take 800 mg by mouth every 6 hours as needed for Pain. cholecalciferol, Vitamin D3, (VITAMIN D3) 50,000 unit cap capsule Take 1 capsule by mouth once each week. levothyroxine (SYNTHROID) 50 mcg tablet Take 1 tablet by mouth once daily. Take on empty stomach. For thyroid. albuterol HFA (PROVENTIL HFA, VENTOLIN HFA) 90 mcg/actuation inhaler Inhale 2 Puffs as instructed every 6 hours as needed. EPINEPHrine (EPIPEN) 0.3 mg/0.3 mL auto-injector Inject 0.3 mL intramuscularly as needed. cyclobenzaprine (FLEXERIL) 10 mg tablet Take 1 tablet by mouth every 8 hours as needed. naproxen (NAPROSYN) 500 mg tablet Take 1 tablet by mouth twice daily as needed (for pain/inflammation). Take with food. pantoprazole DR (PROTONIX) 40 mg tablet Take 1 tablet by mouth daily before breakfast. Take on empty stomach, 1/2 hr before meal. SUMAtriptan (IMITREX) 100 mg tablet One table by mouth with onset of headache. Can repeat in and hour but only 2 tabs in 24 hrs. hydrocodone/acetaminophen (VICODIN ORAL) Take by mouth. REVIEW OF SYSTEMS: GENERAL: Denies fever, chills, night sweats, or changes in weight. HEENT: negative NEURO: Denies any TIA/amaurosis symptoms, weakness or paralysis. RESPIRATORY: COPD GI: Negative for abdominal discomfort No change in bowel habits : Negative for dysuria Negative for hematuria RENAL: No history of ESRD No history of Renal Insufficiency SKIN: Negative for rash, ulcers, lesions I personally interviewed, confirmed and edited the above information if obtained by others. PHYSICAL EXAMINATION: BP 112/67 Pulse 79 General: Obese Skin: No lesions, rashes or ulcerations; normal color and turgor. HEENT: NC/AT Carotid: Pulse 4/4 bilaterally Abd: ND/NT Extremities: left leg swelling Neuro: Awake, alert, and oriented., Gait normal. Sensation grossly intact., CN II-XII grossly intact. IMPRESSION: 1. Chronic Left leg swelling imaging consistent May-thurner comfirmed on CT and MRI syndrome effecting lifestyle 2. COPD 3. Chronic Back pain PLAN: Left iliac venogram and IVUS with possible stent MD Effie Victoria RN Referring Provider: CELINA ELLINGTON [[id number]] Allergies As of Date: 02/04/2018 Noted Allergy Reaction LAGUNA 06/08/2012 7 - Swelling CIPROFLOXACIN 12/17/2015 14 - Other: See Comments Comments: Chest tightness DUST 06/08/2012 7 - Swelling GABAPENTIN 10/14/2017 7 - Swelling Comments: Throat swelling. INSECT PARTS 03/26/2016 7 - Swelling 12 - Shortness of Breath 17 - Myalgia Comments: Pt not sure what bit her but developed redness,difficulty swallowing and swelling of face and neck POLLEN 06/08/2012 7 - Swelling MORPHINE 06/08/2012 11 - Vomiting Date Reviewed: 02/04/2018 Reviewed by: Day Aranda MA - Fully Assessed Primary Visit Diagnosis:May-Thurner syndrome [I87.1] Prescriptions as of 02/04/2018 Sig: IBUPROFEN 800 MG TABLET Take 800 mg by mouth every 6 * CHOLECALCIFEROL (VITAMIN D3) * Take 1 capsule by mouth once * LEVOTHYROXINE 50 MCG TABLET Take 1 tablet by mouth once d* ALBUTEROL SULFATE HFA 90 MCG/* Inhale 2 Puffs as instructed * EPINEPHRINE 0.3 MG/0.3 ML INJ* Inject 0.3 mL intramuscularly* CYCLOBENZAPRINE 10 MG TABLET Take 1 tablet by mouth every * NAPROXEN 500 MG TABLET Take 1 tablet by mouth twice * PANTOPRAZOLE 40 MG TABLET,DEL* Take 1 tablet by mouth daily * SUMATRIPTAN 100 MG TABLET One table by mouth with onset* VICODIN ORAL Take by mouth. Problem List As Of Date 02/04/2018 Noted Resolved Migraine without aura and without status migrai* Priority: A More... More... Acquired hypothyroidism [E03.9] INVALID FOR* Priority: A More... More... Encounter for screening for diabetes mellitus [*INVALID FOR* Encounter for screening for cardiovascular diso*INVALID FOR* Encounter for gynecological examination without*INVALID FOR* Priority: E More... Chronic obstructive pulmonary disease (HCC) [J4*INVALID FOR* Priority: B More... Hemorrhoids, internal, with bleeding [K64.8] INVALID FOR* Priority: C Well adult exam [Z00.00] INVALID FOR* Priority: E More... More... Chronic bilateral low back pain with bilateral *INVALID FOR* Priority: M Radiculopathy, lumbar region [M54.16] INVALID FOR* Priority: M Lumbago-sciatica due to displacement of lumbar *INVALID FOR* Priority: M Ex-smoker [Z87.891] INVALID FOR* Priority: B More... Lung nodule [R91.1] INVALID FOR* Priority: B More... Encounter Status:Closed by TACO KELLY MD on 02/04/18 PROGRESS Observed: 02/01/2018 Status: COMPLETED Source: [place] 10:05 AM [facility] REPOSITORY HNO ID: [id number] Author: Celina Ellington Service: (none) Author Type: Physician Type: Progress Notes Filed: 02/01/2018 10:05 AM Note Text: This office note has been dictated. Celina Ellington DO CNOV Observed: 02/01/2018 Status: COMPLETED Source: [place] 9:15 AM [facility] REPOSITORY Office Visit (VASSWS) YUNIER PATIÑO ([id number]) 1960 F Date Time Provider Department 02/01/18 9:15 AM CELINA ELLINGTON VASSWS During your visit today, we recorded the following information about you: Pulse Blood pressure 80/minute 92/63 Celina Ellington DO 02/01/2018 10:05 AM Signed This office note has been dictated. Celina Ellington DO Referring Provider: CELINA ELLINGTON [[id number]] Allergies As of Date: 02/01/2018 Noted Allergy Reaction LAGUNA 06/08/2012 7 - Swelling CIPROFLOXACIN 12/17/2015 14 - Other: See Comments Comments: Chest tightness DUST 06/08/2012 7 - Swelling GABAPENTIN 10/14/2017 7 - Swelling Comments: Throat swelling. INSECT PARTS 03/26/2016 7 - Swelling 12 - Shortness of Breath 17 - Myalgia Comments: Pt not sure what bit her but developed redness,difficulty swallowing and swelling of face and neck POLLEN 06/08/2012 7 - Swelling MORPHINE 06/08/2012 11 - Vomiting Date Reviewed: 02/01/2018 Reviewed by: David Juarez RN - Fully Assessed Reason for Visit: Established Patient [175] Primary Visit Diagnosis:May-Thurner syndrome [I87.1] Prescriptions as of 02/01/2018 Sig: CHOLECALCIFEROL (VITAMIN D3) * Take 1 capsule by mouth once * LEVOTHYROXINE 50 MCG TABLET Take 1 tablet by mouth once d* VICODIN ORAL Take by mouth. ALBUTEROL SULFATE HFA 90 MCG/* Inhale 2 Puffs as instructed * EPINEPHRINE 0.3 MG/0.3 ML INJ* Inject 0.3 mL intramuscularly* CYCLOBENZAPRINE 10 MG TABLET Take 1 tablet by mouth every * NAPROXEN 500 MG TABLET Take 1 tablet by mouth twice * PANTOPRAZOLE 40 MG TABLET,DEL* Take 1 tablet by mouth daily * SUMATRIPTAN 100 MG TABLET One table by mouth with onset* Problem List As Of Date 02/01/2018 Noted Resolved Migraine without aura and without status migrai* Priority: A More... More... Acquired hypothyroidism [E03.9] INVALID FOR* Priority: A More... More... Encounter for screening for diabetes mellitus [*INVALID FOR* Encounter for screening for cardiovascular diso*INVALID FOR* Encounter for gynecological examination without*INVALID FOR* Priority: E More... Chronic obstructive pulmonary disease (HCC) [J4*INVALID FOR* Priority: B More... Hemorrhoids, internal, with bleeding [K64.8] INVALID FOR* Priority: C Well adult exam [Z00.00] INVALID FOR* Priority: E More... More... Chronic bilateral low back pain with bilateral *INVALID FOR* Priority: M Radiculopathy, lumbar region [M54.16] INVALID FOR* Priority: M Lumbago-sciatica due to displacement of lumbar *INVALID FOR* Priority: M Ex-smoker [Z87.891] INVALID FOR* Priority: B More... Lung nodule [R91.1] INVALID FOR* Priority: B More... Encounter Status:Closed by CELINA ELLINGTON DO on 02/01/18 PROGRESS Observed: 02/01/2018 Status: COMPLETED Source: [place] 12:00 AM [facility] REPOSITORY HNO ID: [id number] Author: Celina Ellington Service: Vascular Surgery Author Type: Physician Type: Progress Notes Filed: 02/08/2018 9:42 AM Note Text: NAME: YUNIER PATIÑO [facility] NO: [id number] DATE OF SERVICE: 02/01/2018 Subjective: Ms. Patiño is here to follow up on venous reflux testing. She states since her last visit, she continues to have some left leg weakness, numbness and shooting pain. She also describes some incontinence of stool. She says occasionally when she goes to the bathroom she does not know if she has gone to the bathroom until she looks into the toilet. Objective: Objective: Her vital signs are stable. She is in no distress. She has no significant lower extremity edema. She has palpable distal pulses. Her study is negative for any reflux. Reviewed her CTA. She does have evidence of left iliac vein compression and some pelvic varicose veins. Assessment/Plan: Luis. Referred the findings with Mr. Patiño. Recommend possible evaluation for a venogram with IVUS and potential iliac vein stenting. We discussed this may not help all of her symptoms that she is having. It may help with some pelvic heaviness and pressure, however, would not relate it to the numbness of her thigh, left leg weakness or incontinence. She is set up to see a spine physician. She will follow up with me after her appointment. Celina Ellington D.O. KB/[id number] Audio #: [id number] Date Dictated: 02/01/2018 09:28:54 Date Typed: 02/06/2018 10:12:27 Date Revised: PROGRESS Observed: 01/13/2018 Status: COMPLETED Source: [place] 1:15 PM [facility] REPOSITORY HNO ID: [id number] Author: Elizabeth Trotter Service: (none) Author Type: Physical Therapist Type: Progress Notes Filed: 01/13/2018 1:15 PM Note Text: [facility] PHYSICAL THERAPY DISCONTINUANCE OF CARE Plan of Care Period: Start of Care Date: 10/08/17 Last Visit Date: 10/19/2017 Therapy Program: Patient did not return for follow up care as planned. Please refer to last visit note for interventions provided for this episode of care. Assessment: Unable to formally assess goal achievement . Reason for Discontinuation of Care: Patient has not returned to therapy or scheduled additional follow-up appointments. Elizabeth Trotter, PT HEMOGLOBIN A1C Collected: 01/07/2018 Status: F Source: [place] 10:31 AM [facility] REPOSITORY TYPE CODE TESTS RESULT OUT OF REFERENCE UNITS RANGE LAB HGBA1C 4.3-5.6 % Hemoglobin A1c 5.1 LAB HBA0 mg/dL Est. Average Glucose 100 Result Comment: eAG: (Estimated average glucose) is a calculated value from HgbA1c and is field sales representative of the average blood glucose level in the last 2-3 month period. Performed By: #### HBA1C, VITD #### [facility] [employer] [address] [place] [address] VITAMIN D 25 HYDROXY Collected: 01/07/2018 Status: F Source: [place] 10:31 AM [facility] REPOSITORY TYPE CODE TESTS RESULT OUT OF REFERENCE UNITS RANGE LAB VITD 31.0-80.0 ng/mL Vitamin D 25 45.5 Hydroxy Result Comment: Classification of 25 OH Vitamin D status: Insufficiency/Moderate Deficiency: < or = 30 ng/mL Sufficiency/Optimal Levels: 31 to 80 ng/mL Toxicity: > 100 ng/mL Test performed by chemiluminescent immunoassay. Performed By: #### HBA1C, VITD #### [facility] [employer] [address] [place] [address] PROGRESS Observed: 01/07/2018 Status: COMPLETED Source: [place] 9:39 AM [facility] REPOSITORY HNO ID: [id number] Author: Hany Cota Service: (none) Author Type: Physician Type: Progress Notes Filed: 01/07/2018 11:56 AM Note Text: Chief Complaint Patient presents with: Physical: 6 months HPI Yunier Patiño is a 57 year old female who presents here today for WAE and rouitne. Patient with Hx of Hypothyroidism, COPD, GERD, migraines and recent left ankle fracture as well as issues documented below and addressed. Patient in November went to see a high school library media specialist for her back and was told her back was ok. When patient tried to discuss that her back was still an issue she said he told me I should get my records and studies and see a back specialist outside of [facility] for a second opinion So she stopped using the walker and her left leg gave out causing her to fall and fracture the left ankle. Is currently seeing podiatry in [place] (Dr. Wright) With not being able to be more active she has put on weight. Past medical history, appointments, medications, allergies reviewed. Previous Medical History PAST MEDICAL HISTORY Diagnosis Date - COPD (chronic obstructive pulmonary disease) (HCC) - Ex-smoker 10/19/2017 Started around 10-11 yo up to 1/2 PPD and quite 2008 - GERD (gastroesophageal reflux disease) - Headache(784.0) starting 47 years old - Hypothyroidism 06/11/2012 Previous Surgical History PAST SURGICAL HISTORY Procedure Laterality Date - CHOLECYSTECTOMY 07/17/2015 - COLONOSCOP W/ OR W/O [facility] SPEC 09/13/13 few diverticula, repeat 10 yrs - EGD W/O [facility] SPECIMEN W/BX 09/13/13 gastritis - FECAL OCCULT BLOOD TEST 07/16/2017 negative - HEMORRHOIDECTOMY 07/28/2017 - LIGATION OF HEMORRHOID(S) 05/05/2016 - PAST SURGICAL HISTORY OF - PAST SURGICAL HISTORY OF breast cyst, right? - REMOVAL OF TONSILS,<14 Y/O Tonsillectomy - [facility] N/CARPAL TUNNEL SURG 05/26/12 Carpal tunnel decomp-bilateral - TOOTH EXTRACTION ~2009 all teeth extracted - TOTAL ABDOM HYSTERECTOMY 1994 [place], ovaries? menorrhagia, benign Family History FAMILY HISTORY Problem Relation Age of Onset - Ischemic Heart Disease Father 68 [place] 72 - Prostate Cancer Father - Coronary Artery Disease Father early 50's - other (ischemic bowel disease) Father ?diverticulosis - Alzheimer's Disease Maternal Grandmother - Lipids Mother - Thyroid Mother - Thyroid Sister Patient Allergies ALLERGIES Allergen Reactions - Laguna Swelling - Ciprofloxacin Other: See Comments Chest tightness - Dust Swelling - Gabapentin Swelling Throat swelling. - Insect Parts Swelling, Shortness of Breath, Myalgia Pt not sure what bit her but developed redness,difficulty swallowing and swelling of face and neck - Pollen Swelling - Morphine Vomiting Current Medications Current Outpatient Prescriptions on File Prior to Visit: levothyroxine (SYNTHROID) 50 mcg tablet Take 1 tablet by mouth once daily. Take on empty stomach. For thyroid. cholecalciferol, Vitamin D3, (VITAMIN D3) 50,000 unit cap capsule Take 1 capsule by mouth once each week. albuterol HFA (PROVENTIL HFA, VENTOLIN HFA) 90 mcg/actuation inhaler Inhale 2 Puffs as instructed every 6 hours as needed. EPINEPHrine (EPIPEN) 0.3 mg/0.3 mL auto-injector Inject 0.3 mL intramuscularly as needed. cyclobenzaprine (FLEXERIL) 10 mg tablet Take 1 tablet by mouth every 8 hours as needed. pantoprazole DR (PROTONIX) 40 mg tablet Take 1 tablet by mouth daily before breakfast. Take on empty stomach, 1/2 hr before meal. SUMAtriptan (IMITREX) 100 mg tablet One table by mouth with onset of headache. Can repeat in and hour but only 2 tabs in 24 hrs. hydrocodone/acetaminophen (VICODIN ORAL) Take by mouth. naproxen (NAPROSYN) 500 mg tablet Take 1 tablet by mouth twice daily as needed (for pain/inflammation). Take with food. No current facility-administered medications on file prior to visit. Social History Social History Marital status: Single Spouse name: Years of education: Number of children: 2 Occupational History Occupation Employer [employer] Social History Main Topics Smoking status: Former Smoker Packs/day: 0.50 Years: 20.00 Types: Cigarettes Quit date: 05/18/2008 Smokeless tobacco: Never Used Alcohol use: No Drug use: No Sexual activity: Yes Partners with: Male control/protection: Surgical Social History Narrative from her since 1990 ( did not show twice for divorce). Review of Symptoms REVIEW OF SYSTEMS GENERAL: No weight loss, malaise or fevers HEENT: Negative for frequent or significant headaches, No changes in hearing or vision, no nose bleeds or other nasal problems NECK: Negative for lumps, goiter, pain and significant neck swelling RESPIRATORY: Negative for cough, hemoptysis, COPD, dyspnea or shortness of breath. Is wheezing frequently. CARDIOVASCULAR: Negative for chest pain, right leg swelling, hypertension, CHF or palpitations. With left ankle fracture has some swelling GI: No nausea, vomiting, or diarrhea, No heartburn or reflux symptoms and no blood : No history of dysuria, frequency or blood MUSCULOSKELETAL: still with low back pain and now left ankle pain. SKIN: Negative for lesions, rash, and itching PSYCH: Negative for sleep disturbance, mood disorder and recent psychosocial stressors HEMATOLOGY/LYMPHOLOGY: Negative for prolonged bleeding, bruising easily or swollen nodes ENDOCRINE: Negative for cold or heat intolerance, polyuria, polydipsia and goiter NEURO: No history of headaches, syncope, paralysis, seizures or tremors EXAM: BP 112/76 Pulse 80 Resp 16 Ht 163.2 cm (5' 4.25) Wt 101.6 kg (224 lb) BMI 38.15 kg/m? General Appearance: Well appearing, alert, in no acute distress, well-hydrated, well nourished. and Obese. Skin: Skin color, texture, turgor normal, no suspicious rashes or lesions. Head: Normocephalic, no masses, lesions, tenderness or abnormalities. Eyes: Anicteric sclera. Pupils are equally round and reactive to light. Extraocular movements are intact. . Ears: External ears normal, canals clear. Nose/Sinuses: Nares normal, septum midline, mucosa normal, no drainage or sinus tenderness. Oropharynx: Lips, mucosa, and tongue normal, teeth and gums normal, oropharynx normal. Neck: Supple, no adenopathy; thyroid symmetric, normal size, no bruits. Lungs: Lungs clear to auscultation. No wheezing, rhonchi, rales. Heart: RRR without murmur, gallop, or rubs. No ectopy. Abdomen: Normal abdominal exam, Abdomen soft, non-tender. Bowel sounds normal. No masses, organomegaly. Extremities: No deformities, edema, skin discoloration on the right. Has boot on the left . Musculoskeletal: Muscular strength intact, No joint swelling, deformity, or tenderness. Peripheral Pulses: Normal. Neurologic: Gait normal. Reflexes normal and symmetric. Sensation to light touch and crainal nerves 2-12 intact.. Health Maintenance List INFLUENZA(1) due on 01/16/2018 MAMMOGRAM due on 06/11/2018 COLORECTAL CANCER SCREENING,SEE MODIFIER due on 09/13/2018 DIABETES SCREEN due on 12/07/2020 LIPID SCREEN due on 12/07/2022 DTAP,TDAP,TD(2 - Td) due on 07/27/2024 HEPATITIS C SCREENING Completed Data reviewed Component Latest Ref Rng AND Units 01/03/2017 10/20/2017 12/07/2017 Protein, Total 6.3 - 8.0 g/dL 6.3 Albumin 3.9 - 4.9 g/dL 4.1 Calcium 8.5 - 10.2 mg/dL 9.0 Bilirubin, Total 0.2 - 1.3 mg/dL 0.5 Alkaline Phosphatase 32 - 117 U/L 71 AST 13 - 35 U/L 26 Glucose 74 - 99 mg/dL 94 BUN 7 - 21 mg/dL 13 Creatinine 0.58 - 0.96 mg/dL 0.74 Sodium 136 - 144 mmol/L 139 Potassium 3.7 - 5.1 mmol/L 4.0 Chloride 97 - 105 mmol/L 103 CO2 22 - 30 mmol/L 25 Anion Gap 9 - 18 mmol/L 11 ALT 7 - 38 U/L 36 eGFR- >60 eGFR-All Other Races . >60 Triglyceride <150 mg/dL 98 268 (H) Cholesterol, Total <200 mg/dL 167 190 HDL Cholesterol >39 mg/dL 51 (L) 36 (L) VLDL Cholesterol <30 mg/dL 20 54 (H) LDL Cholesterol <100 mg/dL 96 100 (H) Fasting Time hrs 13 12 TC:HDL Ratio <5.10 3.27 5.28 (H) LDL:HDL Ratio <2.54 1.88 2.78 (H) Non HDL Cholesterol <130 mg/dL 116 154 (H) Hemoglobin A1C 4.0 - 6.0 % Unable to assay. No specimen received. Estimated Average Glucose mg/dL Unable to assay. No specimen received. Vitamin D 25 Hydroxy 31.0 - 80.0 ng/mL 14.4 (L) TSH 0.400 - 5.500 uU/mL 2.790 A/P ASSESSMENT/PLAN: 1. Well adult exam - ICD9: V70.0, ICD10: Z00.00 (primary diagnosis) - Encouraged monthly Breast Self Exam - Follow up for annual exam in one year. 2. Acquired hypothyroidism - ICD9: 244.9, ICD10: E03.9 - Instructed patient on importance of taking on an empty stomach either first thing in the morning or at bedtime. - continue current dose of Synthroid 0.050 mg 3. Vitamin D deficiency - ICD9: 268.9, ICD10: E55.9 Cont - CHOLECALCIFEROL (VITAMIN D3) 50,000 UNIT CAPSULE - Check VITAMIN D 25 HYDROXY 4. Migraine without aura and without status migrainosus, not intractable - ICD9: 346.10, ICD10: G43.009 - Clinically stable with no recent issues. Cont current Tx and moniotr 5. Chronic obstructive pulmonary disease, unspecified COPD type (HCC) - ICD9: 496, ICD10: J44.9 - Clinically stable no changes needed. 6. Lung nodule - ICD9: 793.11, ICD10: R91.1 - Will have f/u study in the next few months. 7. Chronic bilateral low back pain with bilateral sciatica - ICD9: 724.2, 724.3, 338.29, ICD10: M54.42, M54.41, G89.29 Chronic low back pain - Discussed patient to look into see if she can see the neurosurgeon at [facility] for second opinion. - Patient to call and let me know and can set up referral. 8. Encounter for screening for diabetes mellitus - ICD9: V77.1, ICD10: Z13.1 Check - HGB A1C F/u in 6 months lilliana Cota MD CNOV Observed: 01/07/2018 Status: COMPLETED Source: [place] 9:20 AM [facility] REPOSITORY Office Visit (FAMPWS) YUNIER PATIÑO ([id number]) 1960 F Date Time Provider Department 01/07/18 9:20 AM HANY COTA FAMPWS During your visit today, we recorded the following information about you: Pulse Respiration Blood pressure Weight 80/minute 16/minute 112/76 101.6 kg Height 1.632 m Hany Cota MD 01/07/2018 11:56 AM Signed Chief Complaint Patient presents with: Physical: 6 months HPI Yunier Patiño is a 57 year old female who presents here today for JENNIFER and lilliana. Patient with Hx of Hypothyroidism, COPD, GERD, migraines and recent left ankle fracture as well as issues documented below and addressed. Patient in November went to see a high school library media specialist for her back and was told her back was ok. When patient tried to discuss that her back was still an issue she said he told me I should get my records and studies and see a back specialist outside of [facility] for a second opinion So she stopped using the walker and her left leg gave out causing her to fall and fracture the left ankle. Is currently seeing podiatry in [place] (Dr. Wright) With not being able to be more active she has put on weight. Past medical history, appointments, medications, allergies reviewed. Previous Medical History PAST MEDICAL HISTORY Diagnosis Date - COPD (chronic obstructive pulmonary disease) (HCC) - Ex-smoker 10/19/2017 Started around 10-11 yo up to 1/2 PPD and quite 2008 - GERD (gastroesophageal reflux disease) - Headache(784.0) starting 47 years old - Hypothyroidism 06/11/2012 Previous Surgical History PAST SURGICAL HISTORY Procedure Laterality Date - CHOLECYSTECTOMY 07/17/2015 - COLONOSCOP W/ OR W/O [facility] SPEC 09/13/13 few diverticula, repeat 10 yrs - EGD W/O [facility] SPECIMEN W/BX 09/13/13 gastritis - FECAL OCCULT BLOOD TEST 07/16/2017 negative - HEMORRHOIDECTOMY 07/28/2017 - LIGATION OF HEMORRHOID(S) 05/05/2016 - PAST SURGICAL HISTORY OF - PAST SURGICAL HISTORY OF breast cyst, right? - REMOVAL OF TONSILS,<14 Y/O Tonsillectomy - [facility] N/CARPAL TUNNEL SURG 05/26/12 Carpal tunnel decomp-bilateral - TOOTH EXTRACTION ~2009 all teeth extracted - TOTAL ABDOM HYSTERECTOMY 1994 [place], ovaries? menorrhagia, benign Family History FAMILY HISTORY Problem Relation Age of Onset - Ischemic Heart Disease Father 68 [place] 72 - Prostate Cancer Father - Coronary Artery Disease Father early 50's - other (ischemic bowel disease) Father ?diverticulosis - Alzheimer's Disease Maternal Grandmother - Lipids Mother - Thyroid Mother - Thyroid Sister Patient Allergies ALLERGIES Allergen Reactions - Laguna Swelling - Ciprofloxacin Other: See Comments Chest tightness - Dust Swelling - Gabapentin Swelling Throat swelling. - Insect Parts Swelling, Shortness of Breath, Myalgia Pt not sure what bit her but developed redness,difficulty swallowing and swelling of face and neck - Pollen Swelling - Morphine Vomiting Current Medications Current Outpatient Prescriptions on File Prior to Visit: levothyroxine (SYNTHROID) 50 mcg tablet Take 1 tablet by mouth once daily. Take on empty stomach. For thyroid. cholecalciferol, Vitamin D3, (VITAMIN D3) 50,000 unit cap capsule Take 1 capsule by mouth once each week. albuterol HFA (PROVENTIL HFA, VENTOLIN HFA) 90 mcg/actuation inhaler Inhale 2 Puffs as instructed every 6 hours as needed. EPINEPHrine (EPIPEN) 0.3 mg/0.3 mL auto-injector Inject 0.3 mL intramuscularly as needed. cyclobenzaprine (FLEXERIL) 10 mg tablet Take 1 tablet by mouth every 8 hours as needed. pantoprazole DR (PROTONIX) 40 mg tablet Take 1 tablet by mouth daily before breakfast. Take on empty stomach, 1/2 hr before meal. SUMAtriptan (IMITREX) 100 mg tablet One table by mouth with onset of headache. Can repeat in and hour but only 2 tabs in 24 hrs. hydrocodone/acetaminophen (VICODIN ORAL) Take by mouth. naproxen (NAPROSYN) 500 mg tablet Take 1 tablet by mouth twice daily as needed (for pain/inflammation). Take with food. No current facility-administered medications on file prior to visit. Social History Social History Marital status: Single Spouse name: Years of education: Number of children: 2 Occupational History Occupation Employer [employer] Social History Main Topics Smoking status: Former Smoker Packs/day: 0.50 Years: 20.00 Types: Cigarettes Quit date: 05/18/2008 Smokeless tobacco: Never Used Alcohol use: No Drug use: No Sexual activity: Yes Partners with: Male control/protection: Surgical Social History Narrative from her since 1990 ( did not show twice for divorce). Review of Symptoms REVIEW OF SYSTEMS GENERAL: No weight loss, malaise or fevers HEENT: Negative for frequent or significant headaches, No changes in hearing or vision, no nose bleeds or other nasal problems NECK: Negative for lumps, goiter, pain and significant neck swelling RESPIRATORY: Negative for cough, hemoptysis, COPD, dyspnea or shortness of breath. Is wheezing frequently. CARDIOVASCULAR: Negative for chest pain, right leg swelling, hypertension, CHF or palpitations. With left ankle fracture has some swelling GI: No nausea, vomiting, or diarrhea, No heartburn or reflux symptoms and no blood : No history of dysuria, frequency or blood MUSCULOSKELETAL: still with low back pain and now left ankle pain. SKIN: Negative for lesions, rash, and itching PSYCH: Negative for sleep disturbance, mood disorder and recent psychosocial stressors HEMATOLOGY/LYMPHOLOGY: Negative for prolonged bleeding, bruising easily or swollen nodes ENDOCRINE: Negative for cold or heat intolerance, polyuria, polydipsia and goiter NEURO: No history of headaches, syncope, paralysis, seizures or tremors EXAM: BP 112/76 Pulse 80 Resp 16 Ht 163.2 cm (5' 4.25) Wt 101.6 kg (224 lb) BMI 38.15 kg/m? General Appearance: Well appearing, alert, in no acute distress, well-hydrated, well nourished. and Obese. Skin: Skin color, texture, turgor normal, no suspicious rashes or lesions. Head: Normocephalic, no masses, lesions, tenderness or abnormalities. Eyes: Anicteric sclera. Pupils are equally round and reactive to light. Extraocular movements are intact. . Ears: External ears normal, canals clear. Nose/Sinuses: Nares normal, septum midline, mucosa normal, no drainage or sinus tenderness. Oropharynx: Lips, mucosa, and tongue normal, teeth and gums normal, oropharynx normal. Neck: Supple, no adenopathy; thyroid symmetric, normal size, no bruits. Lungs: Lungs clear to auscultation. No wheezing, rhonchi, rales. Heart: RRR without murmur, gallop, or rubs. No ectopy. Abdomen: Normal abdominal exam, Abdomen soft, non-tender. Bowel sounds normal. No masses, organomegaly. Extremities: No deformities, edema, skin discoloration on the right. Has boot on the left . Musculoskeletal: Muscular strength intact, No joint swelling, deformity, or tenderness. Peripheral Pulses: Normal. Neurologic: Gait normal. Reflexes normal and symmetric. Sensation to light touch and crainal nerves 2-12 intact.. Health Maintenance List INFLUENZA(1) due on 01/16/2018 MAMMOGRAM due on 06/11/2018 COLORECTAL CANCER SCREENING,SEE MODIFIER due on 09/13/2018 DIABETES SCREEN due on 12/07/2020 LIPID SCREEN due on 12/07/2022 DTAP,TDAP,TD(2 - Td) due on 07/27/2024 HEPATITIS C SCREENING Completed Data reviewed Component Latest Ref Rng AND Units 01/03/2017 10/20/2017 12/07/2017 Protein, Total 6.3 - 8.0 g/dL 6.3 Albumin 3.9 - 4.9 g/dL 4.1 Calcium 8.5 - 10.2 mg/dL 9.0 Bilirubin, Total 0.2 - 1.3 mg/dL 0.5 Alkaline Phosphatase 32 - 117 U/L 71 AST 13 - 35 U/L 26 Glucose 74 - 99 mg/dL 94 BUN 7 - 21 mg/dL 13 Creatinine 0.58 - 0.96 mg/dL 0.74 Sodium 136 - 144 mmol/L 139 Potassium 3.7 - 5.1 mmol/L 4.0 Chloride 97 - 105 mmol/L 103 CO2 22 - 30 mmol/L 25 Anion Gap 9 - 18 mmol/L 11 ALT 7 - 38 U/L 36 eGFR- >60 eGFR-All Other Races . >60 Triglyceride <150 mg/dL 98 268 (H) Cholesterol, Total <200 mg/dL 167 190 HDL Cholesterol >39 mg/dL 51 (L) 36 (L) VLDL Cholesterol <30 mg/dL 20 54 (H) LDL Cholesterol <100 mg/dL 96 100 (H) Fasting Time hrs 13 12 TC:HDL Ratio <5.10 3.27 5.28 (H) LDL:HDL Ratio <2.54 1.88 2.78 (H) Non HDL Cholesterol <130 mg/dL 116 154 (H) Hemoglobin A1C 4.0 - 6.0 % Unable to assay. No specimen received. Estimated Average Glucose mg/dL Unable to assay. No specimen received. Vitamin D 25 Hydroxy 31.0 - 80.0 ng/mL 14.4 (L) TSH 0.400 - 5.500 uU/mL 2.790 A/P ASSESSMENT/PLAN: 1. Well adult exam - ICD9: V70.0, ICD10: Z00.00 (primary diagnosis) - Encouraged monthly Breast Self Exam - Follow up for annual exam in one year. 2. Acquired hypothyroidism - ICD9: 244.9, ICD10: E03.9 - Instructed patient on importance of taking on an empty stomach either first thing in the morning or at bedtime. - continue current dose of Synthroid 0.050 mg 3. Vitamin D deficiency - ICD9: 268.9, ICD10: E55.9 Cont - CHOLECALCIFEROL (VITAMIN D3) 50,000 UNIT CAPSULE - Check VITAMIN D 25 HYDROXY 4. Migraine without aura and without status migrainosus, not intractable - ICD9: 346.10, ICD10: G43.009 - Clinically stable with no recent issues. Cont current Tx and moniotr 5. Chronic obstructive pulmonary disease, unspecified COPD type (HCC) - ICD9: 496, ICD10: J44.9 - Clinically stable no changes needed. 6. Lung nodule - ICD9: 793.11, ICD10: R91.1 - Will have f/u study in the next few months. 7. Chronic bilateral low back pain with bilateral sciatica - ICD9: 724.2, 724.3, 338.29, ICD10: M54.42, M54.41, G89.29 Chronic low back pain - Discussed patient to look into see if she can see the neurosurgeon at [facility] for second opinion. - Patient to call and let me know and can set up referral. 8. Encounter for screening for diabetes mellitus - ICD9: V77.1, ICD10: Z13.1 Check - HGB A1C F/u in 6 months lilliana Cota MD Referring Provider: HANY COTA [[id number]] Allergies As of Date: 01/07/2018 Noted Allergy Reaction LAGUNA 06/08/2012 7 - Swelling CIPROFLOXACIN 12/17/2015 14 - Other: See Comments Comments: Chest tightness DUST 06/08/2012 7 - Swelling GABAPENTIN 10/14/2017 7 - Swelling Comments: Throat swelling. INSECT PARTS 03/26/2016 7 - Swelling 12 - Shortness of Breath 17 - Myalgia Comments: Pt not sure what bit her but developed redness,difficulty swallowing and swelling of face and neck POLLEN 06/08/2012 7 - Swelling MORPHINE 06/08/2012 11 - Vomiting Date Reviewed: 01/07/2018 Reviewed by: Hany Cota - Fully Assessed Reason for Visit: Physical [83] Cmt: 6 months Primary Visit Diagnosis:Well adult exam [Z00.00] Other Visit Diagnoses:Acquired hypothyroidism [E03.9] Vitamin D deficiency [E55.9] Migraine without aura and without status migrainosus, not intractable [G43.009] Chronic obstructive pulmonary disease, unspecified COPD type (HCC) [J44.9] Lung nodule [R91.1] Chronic bilateral low back pain with bilateral sciatica [M54.42, M54.41, G89.29] Encounter for screening for diabetes mellitus [Z13.1] Order(s):cholecalciferol, Vitamin D3, (VITAMIN D3) 50,000 unit cap capsuleTake 1 capsule by mouth once each week.Disp: 12 capsuleRfl: 0 HGB A1C [GTJIP5E] Order #: [id number] FUTURE VITAMIN D 25 HYDROXY [SQVITD] Order #: [id number] FUTURE Prescriptions as of 01/07/2018 Sig: CHOLECALCIFEROL (VITAMIN D3) * Take 1 capsule by mouth once * LEVOTHYROXINE 50 MCG TABLET Take 1 tablet by mouth once d* ALBUTEROL SULFATE HFA 90 MCG/* Inhale 2 Puffs as instructed * EPINEPHRINE 0.3 MG/0.3 ML INJ* Inject 0.3 mL intramuscularly* CYCLOBENZAPRINE 10 MG TABLET Take 1 tablet by mouth every * PANTOPRAZOLE 40 MG TABLET,DEL* Take 1 tablet by mouth daily * SUMATRIPTAN 100 MG TABLET One table by mouth with onset* VICODIN ORAL Take by mouth. NAPROXEN 500 MG TABLET Take 1 tablet by mouth twice * Problem List As Of Date 01/07/2018 Noted Resolved Migraine without aura and without status migrai* Priority: A More... More... Acquired hypothyroidism [E03.9] INVALID FOR* Priority: A More... More... Encounter for screening for diabetes mellitus [*INVALID FOR* Encounter for screening for cardiovascular diso*INVALID FOR* Encounter for gynecological examination without*INVALID FOR* Priority: E More... Chronic obstructive pulmonary disease (HCC) [J4*INVALID FOR* Priority: B More... Hemorrhoids, internal, with bleeding [K64.8] INVALID FOR* Priority: C Well adult exam [Z00.00] INVALID FOR* Priority: E More... More... Chronic bilateral low back pain with bilateral *INVALID FOR* Priority: M Radiculopathy, lumbar region [M54.16] INVALID FOR* Priority: M Lumbago-sciatica due to displacement of lumbar *INVALID FOR* Priority: M Ex-smoker [Z87.891] INVALID FOR* Priority: B More... Lung nodule [R91.1] INVALID FOR* Priority: B More... Prescriptions ordered this encounter Disp Refills Start End CHOLECALCIFEROL (VITAMIN D3) 50,000 * 12 c* 0 01/07/2018 Route: ORAL Sig: Take 1 capsule by mouth once each week. Medications Discontinued During This Encounter ketorolac tromethamine (TORADOL ORAL) 01/07/2018 Class: Historical Med Route: ORAL Sig: Take 10 mg by mouth every 6 hours as needed. Disc: Course of therapy completed cholecalciferol, Vitamin D3, (VITAMI* 12 c* 0 10/21/2017 01/07/2018 Route: ORAL Sig: Take 1 capsule by mouth once each week. Disc: Reason for discontinue is not on file. Disposition: Return in about 6 months (around 07/10/2018) for routine. Follow-up and Disposition History Recorded Encounter Status:Closed by HANY COTA on 01/07/18 PROGRESS Observed: 12/23/2017 Status: COMPLETED Source: [place] 9:15 AM [facility] REPOSITORY HNO ID: [id number] Author: Herlinda Duke (Pa) Service: (none) Author Type: Physician Wood Tile Installation Helper Type: Progress Notes Filed: 12/23/2017 9:18 AM Note Text: Medical Record reviewed. Agree with Elsa Lobo PA-C assessment and work-up. Recommend Neurology consult that Elsa has recommended at this time. No surgical consult needed at this time. Herlinda Duke PA-C PROGRESS Observed: 12/22/2017 Status: COMPLETED Source: [place] 3:47 PM [facility] REPOSITORY HNO ID: [id number] Author: Niecy Snow Service: (none) Author Type: (none) Type: Progress Notes Filed: 12/23/2017 9:18 AM Note Text: Patient name: Yunier Patiño Are you being referred by a [facility] Provider or Pain Management Provider at [facility]? No If no, who is the Referring Provider: self MRI/CT/myelogram within 12 months: Yes Imaging viewable in Epic: Yes If no, please instruct pt to provide most recent spine imaging in on CD with report for review during triage Requested provider: none (drop down that you can select multiple to include: first available as well as all surgeons in [facility] listed) 1. Are you having pain in any of the following areas related to this visit? Back Buttock 2. Are you having any of the following symptoms: having difficulty walking, numbness, weakness or trouble using your hands? Yes numbness at times 3. Have you completed the following treatment in the past 12 months for this problem? Conservative Therapy: NSAIDS, Muscle relaxants, Physical therapy, Trigger point injection and Chiropractor 4. Are you currently taking daily prescribed narcotic medications for your current symptoms? No 5. Have you had previous spinal surgery for this same problem? No Additional Comments: MRI in [facility] [phone] NANCITOUTREACH Observed: 12/22/2017 Status: COMPLETED Source: [place] 12:00 AM [facility] REPOSITORY Patient Outreach (FAMPST) YUNIER PATIÑO ([id number]) 1960 F Date Time Provider Department 12[facility]22[facility] During your visit today, we recorded the following information about you: Allergies As of Date: 12/22/2017 Noted Allergy Reaction LAGUNA 06/08/2012 7 - Swelling CIPROFLOXACIN 12/17/2015 14 - Other: See Comments Comments: Chest tightness DUST 06/08/2012 7 - Swelling GABAPENTIN 10/14/2017 7 - Swelling Comments: Throat swelling. INSECT PARTS 03/26/2016 7 - Swelling 12 - Shortness of Breath 17 - Myalgia Comments: Pt not sure what bit her but developed redness,difficulty swallowing and swelling of face and neck POLLEN 06/08/2012 7 - Swelling MORPHINE 06/08/2012 11 - Vomiting Date Reviewed: 12/11/2017 Reviewed by: Harris Nelson - Fully Assessed Visit Diagnosis:Medication management [Z79.899] Prescriptions as of 12/22/2017 Sig: VICODIN ORAL Take by mouth. TORADOL ORAL Take 10 mg by mouth every 6 h* CHOLECALCIFEROL (VITAMIN D3) * Take 1 capsule by mouth once * ALBUTEROL SULFATE HFA 90 MCG/* Inhale 2 Puffs as instructed * EPINEPHRINE 0.3 MG/0.3 ML INJ* Inject 0.3 mL intramuscularly* CYCLOBENZAPRINE 10 MG TABLET Take 1 tablet by mouth every * NAPROXEN 500 MG TABLET Take 1 tablet by mouth twice * LEVOTHYROXINE 50 MCG TABLET Take 1 tablet by mouth once d* PANTOPRAZOLE 40 MG TABLET,DEL* Take 1 tablet by mouth daily * SUMATRIPTAN 100 MG TABLET One table by mouth with onset* Problem List As Of Date 12/22/2017 Noted Resolved Migraine without aura and without status migrai* Priority: A More... More... Acquired hypothyroidism [E03.9] INVALID FOR* Priority: A More... More... Encounter for screening for diabetes mellitus [*INVALID FOR* Encounter for screening for cardiovascular diso*INVALID FOR* Encounter for gynecological examination without*INVALID FOR* Priority: E More... Chronic obstructive pulmonary disease (HCC) [J4*INVALID FOR* Priority: B More... Hemorrhoids, internal, with bleeding [K64.8] INVALID FOR* Priority: C Well adult exam [Z00.00] INVALID FOR* Priority: E More... More... Chronic bilateral low back pain with bilateral *INVALID FOR* Priority: M Radiculopathy, lumbar region [M54.16] INVALID FOR* Priority: M Lumbago-sciatica due to displacement of lumbar *INVALID FOR* Priority: M Ex-smoker [Z87.891] INVALID FOR* Priority: B More... Lung nodule [R91.1] INVALID FOR* Priority: B More... Encounter Status:Closed by HANY COTA on 12/23/17 LOWER EXT JOINT ONLY Observed: 12/09/2017 Status: F Source: [place] (ROUTINE) 7:[address] [facility] REPOSITORY [facility] Imaging Services [facility] [place] [address] [place] [address] Lower Ext Joint Only (Routine) MR#: [id number] Acct: [id number] Name: YUNIER PATIÑO Rep #: [id number] : 1960 F 57 From: Rafael Allen MD PCP: Hany Cota MD Status: REG CLI Study: Lower Ext Joint Only (Routine) Date of Exam: 12/09/17 Exam# [id number] Ordering Dr: Hany Wright DPM STUDY: MRI LEFT ANKLE WITHOUT CONTRAST REASON FOR EXAM: Pain extending anteriorly into the midfoot after rolling the ankle 11/19/2017. TECHNIQUE: Standardized fat and water weighted pulse sequences were obtained in all 3 orthogonal planes. COMPARISON: Radiographs 11/20/2017. FINDINGS: There is mild edema in the lateral subcutis adipose space. There is a small volume of fluid in the distal posterior tibialis tendon sheath (T2 axial images 17, 18). The posterior tibialis tendon is morphologically normal. Normal flexor digitorum longus tendon. Normal flexor hallucis longus tendon. There is a small volume of fluid in the perimalleolar peroneal tendon sheath (inversion recovery sagittal images 17, 18). The peroneus longus and brevis tendons are morphologically normal. Normal tibialis anterior tendon. Normal extensor hallucis longus tendon. There is a very small volume of fluid in the extensor digitorum longus tendon sheath (T2 axial images 14, 15). The extensor digitorum longus tendons are morphologically normal. Normal Achilles tendon and teno-osseous insertion. There is a small posterior calcaneal enthesophyte. Normal plantar fascia. There is a nondisplaced fracture of the anterior calcaneus with extension into the anterior aspect of the posterior tuberosity of the calcaneus (T1 sagittal images 11-14) and intra-articular extension into the calcaneocuboid articulation (T1 sagittal image 25) without extension into the posterior subtalar articulation. There is a mild strain of the extensor digitorum brevis muscle (inversion recovery sagittal images 17, 18). Normal distal tibiofibular syndesmotic ligamentous complex. Normal lateral ligamentous complex. There is edema in the sinus tarsi (inversion recovery sagittal images 12-14). Normal deltoid ligamentous complexes. Normal plantar calcaneonavicular (spring) ligament. Normal tibiotalar articulation. Normal talar dome. There is a small posterior subtalar joint effusion (inversion recovery sagittal images 12-14). Normal talonavicular articulation. Normal calcaneocuboid articulation. Normal navicular-cuneiform articulations. There is a small bone contusion of the distal talus (inversion recovery sagittal images 10, 11). 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 MRI/Lower Ext Joint Only (Routine) IMPRESSION: Nondisplaced anterior calcaneal fracture. Nonosseous calcaneonavicular coalition. Small bone contusion of the distal talus. Mild posterior tibialis tenosynovitis. Mild peroneal tenosynovitis. Very mild extensor digitorum longus tenosynovitis. Mild sprain of the extensor digitorum brevis muscle. Edema in the sinus tarsi. Small posterior subtalar joint effusion. No demonstrated tear of the anterior tibialis tendon. Electronically Signed: Rafael Allen MD at 11:22 EDT Tel , Service support , CC: Hany Cota MD; Hany Wright DPM Migratory Farm Hand: Signed CNOV Observed: 12/07/2017 Status: COMPLETED Source: [place] 9:30 AM [facility] REPOSITORY Office Visit (VASSWS) YUNIER PATIÑO ([id number]) 1960 F Date Time Provider Department 12/07/17 9:30 AM CELINA ELLINGTON VASSWS During your visit today, we recorded the following information about you: Pulse Blood pressure 81/minute 96/68 Celina Ellington, DO 12/11/2017 9:17 AM Signed VASCULAR SURGERY INITIAL CONSULT SERVICE DATE: 12/07/2017 SERVICE TIME: 9:18 AM PRIMARY CARE PHYSICIAN: Hany Cota MD Consult requested for an opinion regarding the evaluation and treatment of the above. My final impression and recommendations will be communicated back to the requesting physician by way of the shared medical record or letter via US mail. CHIEF COMPLAINT/HISTORY OF PRESENT ILLNESS: Chief Complaint: Bilateral Vascular Masses on MRI History of Present Illness: Yunier Patiño is a 57 year old female referred for follow- up on bilateral vascular masses found on CTA/MRI. Ms. Patiño states she was having back pain and pain around umbilicus in August 2017- course included ED visit and follow-up with PCP. Testing was done which showed bilateral pelvic vascular masses. She reports no major varicose veins or problems with leg edema- occasional dull, aching pain in left leg. She is a former smoker and reports no major cardiovascular history- recent complaints include COPD, lower back problems, and a recent fall, which resulted in injury to left foot. PAST MEDICAL/SURGICAL/FAMILY/SOCIAL HISTORY PAST MEDICAL HISTORY Diagnosis Date - COPD (chronic obstructive pulmonary disease) (HCC) - Ex-smoker 10/19/2017 Started around 10-11 yo up to 1/2 PPD and quite 2008 - GERD (gastroesophageal reflux disease) - Headache(784.0) starting 47 years old - Hypothyroidism 06/11/2012 PAST SURGICAL HISTORY Procedure Laterality Date - CHOLECYSTECTOMY 07/17/2015 - COLONOSCOP W/ OR W/O [facility] SPEC 09/13/13 few diverticula, repeat 10 yrs - EGD W/O [facility] SPECIMEN W/BX 09/13/13 gastritis - FECAL OCCULT BLOOD TEST 07/16/2017 negative - HEMORRHOIDECTOMY 07/28/2017 - LIGATION OF HEMORRHOID(S) 05/05/2016 - PAST SURGICAL HISTORY OF - PAST SURGICAL HISTORY OF breast cyst, right? - REMOVAL OF TONSILS,<14 Y/O Tonsillectomy - [facility] N/CARPAL TUNNEL SURG 05/26/12 Carpal tunnel decomp-bilateral - TOOTH EXTRACTION ~2009 all teeth extracted - TOTAL ABDOM HYSTERECTOMY 1994 KENNEDY, ovaries? menorrhagia, benign FAMILY HISTORY Problem Relation Age of Onset - Ischemic Heart Disease Father 68 [place] 72 - Prostate Cancer Father - Coronary Artery Disease Father early 50's - ischemic bowel disease [OTHER] Father ?diverticulosis - Alzheimer's Disease Maternal Grandmother - Lipids Mother - Thyroid Mother - Thyroid Sister SOCIAL HISTORYSocial History Marital status: Single Spouse name: Years of education: Number of children: 2 Occupational History Occupation Employer [employer] Social History Main Topics Smoking status: Former Smoker Packs/day: 0.50 Years: 20.00 Types: Cigarettes Quit date: 05/18/2008 Smokeless tobacco: Never Used Alcohol use: No Drug use: No Sexual activity: Yes Partners with: Male control/protection: Surgical Social History Narrative from her since 1990 ( did not show twice for divorce). MEDICATIONS/ALLERGIES Current Outpatient Prescriptions: hydrocodone/acetaminophen (VICODIN ORAL) Take by mouth. Disp: Rfl: ketorolac tromethamine (TORADOL ORAL) Take 10 mg by mouth every 6 hours as needed. Disp: Rfl: cholecalciferol, Vitamin D3, (VITAMIN D3) 50,000 unit cap capsule Take 1 capsule by mouth once each week. Disp: 12 capsule Rfl: 0 albuterol HFA (PROVENTIL HFA, VENTOLIN HFA) 90 mcg/actuation inhaler Inhale 2 Puffs as instructed every 6 hours as needed. Disp: 1 Inhaler Rfl: 0 EPINEPHrine (EPIPEN) 0.3 mg/0.3 mL auto-injector Inject 0.3 mL intramuscularly as needed. Disp: 2 Each Rfl: 2 cyclobenzaprine (FLEXERIL) 10 mg tablet Take 1 tablet by mouth every 8 hours as needed. Disp: 8 tablet Rfl: 0 naproxen (NAPROSYN) 500 mg tablet Take 1 tablet by mouth twice daily as needed (for pain/inflammation). Take with food. Disp: 60 tablet Rfl: 2 levothyroxine (SYNTHROID) 50 mcg tablet Take 1 tablet by mouth once daily. Take on empty stomach. For thyroid. Disp: 30 tablet Rfl: [address] (PROTONIX) 40 mg tablet Take 1 tablet by mouth daily before breakfast. Take on empty stomach, 1/2 hr before meal. Disp: 30 tablet Rfl: 5 SUMAtriptan (IMITREX) 100 mg tablet One table by mouth with onset of headache. Can repeat in and hour but only 2 tabs in 24 hrs. Disp: 12 tablet Rfl: 3 No current facility-administered medications for this visit. ALLERGIES Allergen Reactions - Laguna Swelling - Ciprofloxacin Other: See Comments Chest tightness - Dust Swelling - Gabapentin Swelling Throat swelling. - Insect Parts Swelling, Shortness of Breath, Myalgia Pt not sure what bit her but developed redness,difficulty swallowing and swelling of face and neck - Pollen Swelling - Morphine Vomiting REVIEW OF SYSTEMS Constitutional: No weight loss, malaise or fevers. HEENT: Negative for frequent or significant headaches, No changes in hearing or vision, no nose bleeds or other nasal problems Respiratory: Positive for chronic cough, shortness of breath on exertion and shortness of breath after 2 flights of stairs Cardiovascular: Negative for chest pain, leg swelling or palpitations Gatrointestinal: Negative for abdominal discomfort, blood in stools or black stools or change in bowel habits Genitourinary: No history of dysuria, frequency, or incontinence and No difficulty urination, nocturia >1 times per night or hematuria Musculoskeletal: Positive for back pain Endocrine: Negative for cold or heat intolerance, polyuria, polydipsia and goiter Hematology/Lymphatic: Negative for prolonged bleeding, bruising easily or swollen nodes Neurologic: No history or headaches, syncope, paralysis, seizures or tremors Integumentary: Negative for lesions, rash, and itching. PHYSICAL EXAM VITALS: 12/07/17 0929 BP: 96/68 Pulse: 81 General: Alert and oriented, No acute distress Integumentary: Normal color, no rash, no lesions. HEENT: No carotid bruits Cardiovascular: Pulse regular. Lungs: Normal breath sounds, no wheezes or crackles. Abdomen: Soft, non-tender, no rigidity. Extremities: No deformity, no edema or tenderness, no joint swelling or clubbing. Neurological: Normal cognition and motor skills. Vascular: Dorsalis Pedal Right: Normal - Left: Normal ASSESSMENT Pelvic varicose veins Diagnostic tests reviewed for today's visit: CTA ABD/PELV W IVCON Date: 10/08/2017 IMPRESSION: ABDOMINAL AORTA AND ITS GREAT BRANCHES ARE NORMAL IN CALIBER WITHOUT SIGNIFICANT ATHEROSCLEROTIC CHANGES OR FOCAL STENOSIS. A 2.3 CM ROUND LEFT AND 1.7 CM OVAL RIGHT PARA MIDLINE MASSES UPON THE S2 ALONG THE COURSE OF TORTUOUS INTERNAL ILIAC VEINS. ?THE ROUNDED MASS CORRESPONDS TO THE FINDINGS ON THE RECENT MRI. ?WHILE THIS EXAM IS LIMITED DUE TO SINGLE ARTERIAL PHASE, HOWEVER, CONSIDERING SIMILAR DENSITY WITH ADJACENT INTERNAL ILIAC VEINS ON CT AND SIMILAR SIGNAL INTENSITIES WITH ADJACENT VEINS ON THE MRI DISEASE MOST PROBABLY REPRESENT DILATED VARICEAL POSTERIOR PELVIC VEINS. 1.7 CM AVIDLY ENHANCING RIGHT HEPATIC LOBE LESION, MOST COMPATIBLE WITH A FLASH HEMANGIOMA. 5 MM NONCALCIFIED SOLID RIGHT LOWER LOBE NODULE. [employer] RECOMMENDATIONS FOR FOLLOW-UP OF SMALL LUNG NODULES DETECTED INCIDENTALLY ON CT (PATIENTS ? 35 YEARS OF AGE) >4 ? 6 MM ? LOW-RISK PATIENT: ? HIGH-RISK PATIENT ?CT AT 12 MONTHS ?INITIAL CT AT 6-12 MONTHS ?IF STABLE, NO FURTHER FOLLOW-UP ? IF STABLE, REPEAT CT AT ? 18-24 MONTHS PATCHY CENTRILOBULAR OPACITIES IN THE LINGULAR SEGMENT WITH SUBTLE BRONCHIAL WALL THICKENING AND NODULARITY, NONSPECIFIC AND COULD BE DUE TO INFECTIOUS OR INFLAMMATORY BRONCHIOLITIS. ?THIS FINDING CAN BE REACCESSED AT THE TIME OF FOLLOW-UP CT. PLAN/RECOMMENDATIONS Reviewed recent imaging May benefit from MRV to assess for gondal vein reflux Appears the left common iliac vein may have some compression which may contribute to varicose veins Etiology of pain back most likely is multifactorial and may not be relieved with treatment of iliac vein compression Will follow up after imaging SIGNATURE: Celina Ellington DO PATIENT NAME: Yunier Patiño DATE: December 07, 2017 TIME: 9:18 AM Referring Provider: HANY COTA [[id number]] Allergies As of Date: 12/07/2017 Noted Allergy Reaction LAGUNA 06/08/2012 7 - Swelling CIPROFLOXACIN 12/17/2015 14 - Other: See Comments Comments: Chest tightness DUST 06/08/2012 7 - Swelling GABAPENTIN 10/14/2017 7 - Swelling Comments: Throat swelling. 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 TORADOL ORAL Take 10 mg by mouth every 6 h* CHOLECALCIFEROL (VITAMIN D3) * Take 1 capsule by mouth once * ALBUTEROL SULFATE HFA 90 MCG/* Inhale 2 Puffs as instructed * EPINEPHRINE 0.3 MG/0.3 ML INJ* Inject 0.3 mL intramuscularly* CYCLOBENZAPRINE 10 MG TABLET Take 1 tablet by mouth every * NAPROXEN 500 MG TABLET Take 1 tablet by mouth twice * LEVOTHYROXINE 50 MCG TABLET Take 1 tablet by mouth once d* PANTOPRAZOLE 40 MG TABLET,DEL* Take 1 tablet by mouth daily * SUMATRIPTAN 100 MG TABLET One table by mouth with onset* Problem List As Of Date 12/07/2017 Noted Resolved Migraine without aura and without status migrai* Priority: A More... More... Acquired hypothyroidism [E03.9] INVALID FOR* Priority: A More... More... Encounter for screening for diabetes mellitus [*INVALID FOR* Encounter for screening for cardiovascular diso*INVALID FOR* Encounter for gynecological examination without*INVALID FOR* Priority: E More... Chronic obstructive pulmonary disease (HCC) [J4*INVALID FOR* Priority: B More... Hemorrhoids, internal, with bleeding [K64.8] INVALID FOR* Priority: C Well adult exam [Z00.00] INVALID FOR* Priority: E More... More... Chronic bilateral low back pain with bilateral *INVALID FOR* Priority: M Radiculopathy, lumbar region [M54.16] INVALID FOR* Priority: M Lumbago-sciatica due to displacement of lumbar *INVALID FOR* Priority: M Ex-smoker [Z87.891] INVALID FOR* Priority: B More... Lung nodule [R91.1] INVALID FOR* Priority: B More... Prescriptions ordered this encounter Disp Refills Start End IV CONTRAST (RADIOLOGY PROCEDURE) 1 Ea* 0 12/07/2017 12/11/2017 Class: In Office Sig: MRA ABD/Lower Ext. Inject, intravenously, once for 1 dose. No IV access, insert saline lock prior to the beginning of sedation, infusion, injection of imaging exam. Discontinue saline lock post exam. If Pt has a central line or IVAD, may access for administration according to line specific nursing protocol. Once exam is complete flush line and de-access according to line specific nursing protocol in the MR contrast administration guidelines link Disc: Clinical Decision Medications Discontinued During This Encounter iv contrast (will be provided with r* 1 Ea* 0 12/07/2017 12/11/2017 Class: In Office Sig: MRA ABD/Lower Ext. Inject, intravenously, once for 1 dose. No IV access, insert saline lock prior to the beginning of sedation, infusion, injection of imaging exam. Discontinue saline lock post exam. If Pt has a central line or IVAD, may access for administration according to line specific nursing protocol. Once exam is complete flush line and de-access according to line specific nursing protocol in the MR contrast administration guidelines link Disc: Clinical Decision Encounter Status:Closed by CELINA ELLINGTON DO on 12/11/17 PROGRESS Observed: 12/07/2017 Status: COMPLETED Source: [place] 9:18 AM [facility] REPOSITORY [facility] ID: [id number] Author: Celina Ellington Service: (none) Author Type: Physician Type: Progress Notes Filed: 12/11/2017 9:17 AM Note Text: VASCULAR SURGERY INITIAL CONSULT SERVICE DATE: 12/07/2017 SERVICE TIME: 9:18 AM PRIMARY CARE PHYSICIAN: Hany Cota MD Consult requested for an opinion regarding the evaluation and treatment of the above. My final impression and recommendations will be communicated back to the requesting physician by way of the shared medical record or letter via US mail. CHIEF COMPLAINT/HISTORY OF PRESENT ILLNESS: Chief Complaint: Bilateral Vascular Masses on MRI History of Present Illness: Yunier Patiño is a 57 year old female referred for follow- up on bilateral vascular masses found on CTA/MRI. Ms. Patiño states she was having back pain and pain around umbilicus in August 2017- course included ED visit and follow-up with PCP. Testing was done which showed bilateral pelvic vascular masses. She reports no major varicose veins or problems with leg edema- occasional dull, aching pain in left leg. She is a former smoker and reports no major cardiovascular history- recent complaints include COPD, lower back problems, and a recent fall, which resulted in injury to left foot. PAST MEDICAL/SURGICAL/FAMILY/SOCIAL HISTORY PAST MEDICAL HISTORY Diagnosis Date - COPD (chronic obstructive pulmonary disease) (HCC) - Ex-smoker 10/19/2017 Started around 10-11 yo up to 1/2 PPD and quite 2008 - GERD (gastroesophageal reflux disease) - Headache(784.0) starting 47 years old - Hypothyroidism 06/11/2012 PAST SURGICAL HISTORY Procedure Laterality Date - CHOLECYSTECTOMY 07/17/2015 - COLONOSCOP W/ OR W/O BRSH SPEC 09/13/13 few diverticula, repeat 10 yrs - EGD W/O BRS SPECIMEN W/BX 09/13/13 gastritis - FECAL OCCULT BLOOD TEST 07/16/2017 negative - HEMORRHOIDECTOMY 07/28/2017 - LIGATION OF HEMORRHOID(S) 05/05/2016 - PAST SURGICAL HISTORY OF - PAST SURGICAL HISTORY OF breast cyst, right? - REMOVAL OF TONSILS,<14 Y/O Tonsillectomy - REVISE MEDIAN N/CARPAL TUNNEL SURG 05/26/12 Carpal tunnel decomp-bilateral - TOOTH EXTRACTION ~2009 all teeth extracted - TOTAL ABDOM HYSTERECTOMY 1994 KENNEDY, ovaries? menorrhagia, benign FAMILY HISTORY Problem Relation Age of Onset - Ischemic Heart Disease Father 68 [place] 72 - Prostate Cancer Father - Coronary Artery Disease Father early 50's - ischemic bowel disease [OTHER] Father ?diverticulosis - Alzheimer's Disease Maternal Grandmother - Lipids Mother - Thyroid Mother - Thyroid Sister SOCIAL HISTORYSocial History Marital status: Single Spouse name: Years of education: Number of children: 2 Occupational History Occupation Employer [employer] Social History Main Topics Smoking status: Former Smoker Packs/day: 0.50 Years: 20.00 Types: Cigarettes Quit date: 05/18/2008 Smokeless tobacco: Never Used Alcohol use: No Drug use: No Sexual activity: Yes Partners with: Male control/protection: Surgical Social History Narrative from her since 1990 ( did not show twice for divorce). MEDICATIONS/ALLERGIES Current Outpatient Prescriptions: hydrocodone/acetaminophen (VICODIN ORAL) Take by mouth. Disp: Rfl: ketorolac tromethamine (TORADOL ORAL) Take 10 mg by mouth every 6 hours as needed. Disp: Rfl: cholecalciferol, Vitamin D3, (VITAMIN D3) 50,000 unit cap capsule Take 1 capsule by mouth once each week. Disp: 12 capsule Rfl: 0 albuterol HFA (PROVENTIL HFA, VENTOLIN HFA) 90 mcg/actuation inhaler Inhale 2 Puffs as instructed every 6 hours as needed. Disp: 1 Inhaler Rfl: 0 EPINEPHrine (EPIPEN) 0.3 mg/0.3 mL auto-injector Inject 0.3 mL intramuscularly as needed. Disp: 2 Each Rfl: 2 cyclobenzaprine (FLEXERIL) 10 mg tablet Take 1 tablet by mouth every 8 hours as needed. Disp: 8 tablet Rfl: 0 naproxen (NAPROSYN) 500 mg tablet Take 1 tablet by mouth twice daily as needed (for pain/inflammation). Take with food. Disp: 60 tablet Rfl: 2 levothyroxine (SYNTHROID) 50 mcg tablet Take 1 tablet by mouth once daily. Take on empty stomach. For thyroid. Disp: 30 tablet Rfl: [address] (PROTONIX) 40 mg tablet Take 1 tablet by mouth daily before breakfast. Take on empty stomach, 1/2 hr before meal. Disp: 30 tablet Rfl: 5 SUMAtriptan (IMITREX) 100 mg tablet One table by mouth with onset of headache. Can repeat in and hour but only 2 tabs in 24 hrs. Disp: 12 tablet Rfl: 3 No current facility-administered medications for this visit. ALLERGIES Allergen Reactions - Laguna Swelling - Ciprofloxacin Other: See Comments Chest tightness - Dust Swelling - Gabapentin Swelling Throat swelling. - Insect Parts Swelling, Shortness of Breath, Myalgia Pt not sure what bit her but developed redness,difficulty swallowing and swelling of face and neck - Pollen Swelling - Morphine Vomiting REVIEW OF SYSTEMS Constitutional: No weight loss, malaise or fevers. HEENT: Negative for frequent or significant headaches, No changes in hearing or vision, no nose bleeds or other nasal problems Respiratory: Positive for chronic cough, shortness of breath on exertion and shortness of breath after 2 flights of stairs Cardiovascular: Negative for chest pain, leg swelling or palpitations Gatrointestinal: Negative for abdominal discomfort, blood in stools or black stools or change in bowel habits Genitourinary: No history of dysuria, frequency, or incontinence and No difficulty urination, nocturia >1 times per night or hematuria Musculoskeletal: Positive for back pain Endocrine: Negative for cold or heat intolerance, polyuria, polydipsia and goiter Hematology/Lymphatic: Negative for prolonged bleeding, bruising easily or swollen nodes Neurologic: No history or headaches, syncope, paralysis, seizures or tremors Integumentary: Negative for lesions, rash, and itching. PHYSICAL EXAM VITALS: 12/07/17 0929 BP: 96/68 Pulse: 81 General: Alert and oriented, No acute distress Integumentary: Normal color, no rash, no lesions. HEENT: No carotid bruits Cardiovascular: Pulse regular. Lungs: Normal breath sounds, no wheezes or crackles. Abdomen: Soft, non-tender, no rigidity. Extremities: No deformity, no edema or tenderness, no joint swelling or clubbing. Neurological: Normal cognition and motor skills. Vascular: Dorsalis Pedal Right: Normal - Left: Normal ASSESSMENT Pelvic varicose veins Diagnostic tests reviewed for today's visit: CTA ABD/PELV W IVCON Date: 10/08/2017 IMPRESSION: ABDOMINAL AORTA AND ITS GREAT BRANCHES ARE NORMAL IN CALIBER WITHOUT SIGNIFICANT ATHEROSCLEROTIC CHANGES OR FOCAL STENOSIS. A 2.3 CM ROUND LEFT AND 1.7 CM OVAL RIGHT PARA MIDLINE MASSES UPON THE S2 ALONG THE COURSE OF TORTUOUS INTERNAL ILIAC VEINS. ?THE ROUNDED MASS CORRESPONDS TO THE FINDINGS ON THE RECENT MRI. ?WHILE THIS EXAM IS LIMITED DUE TO SINGLE ARTERIAL PHASE, HOWEVER, CONSIDERING SIMILAR DENSITY WITH ADJACENT INTERNAL ILIAC VEINS ON CT AND SIMILAR SIGNAL INTENSITIES WITH ADJACENT VEINS ON THE MRI DISEASE MOST PROBABLY REPRESENT DILATED VARICEAL POSTERIOR PELVIC VEINS. 1.7 CM AVIDLY ENHANCING RIGHT HEPATIC LOBE LESION, MOST COMPATIBLE WITH A FLASH HEMANGIOMA. 5 MM NONCALCIFIED SOLID RIGHT LOWER LOBE NODULE. [employer] RECOMMENDATIONS FOR FOLLOW-UP OF SMALL LUNG NODULES DETECTED INCIDENTALLY ON CT (PATIENTS ? 35 YEARS OF AGE) >4 ? 6 MM ? LOW-RISK PATIENT: ? HIGH-RISK PATIENT ?CT AT 12 MONTHS ?INITIAL CT AT 6-12 MONTHS ?IF STABLE, NO FURTHER FOLLOW-UP ? IF STABLE, REPEAT CT AT ? 18-24 MONTHS PATCHY CENTRILOBULAR OPACITIES IN THE LINGULAR SEGMENT WITH SUBTLE BRONCHIAL WALL THICKENING AND NODULARITY, NONSPECIFIC AND COULD BE DUE TO INFECTIOUS OR INFLAMMATORY BRONCHIOLITIS. ?THIS FINDING CAN BE REACCESSED AT THE TIME OF FOLLOW-UP CT. PLAN/RECOMMENDATIONS Reviewed recent imaging May benefit from MRV to assess for gondal vein reflux Appears the left common iliac vein may have some compression which may contribute to varicose veins Etiology of pain back most likely is multifactorial and may not be relieved with treatment of iliac vein compression Will follow up after imaging SIGNATURE: Celina Ellington DO PATIENT NAME: Yunier Patiño DATE: December 07, 2017 TIME: 9:18 AM LIPID PANEL, BASIC Collected: 12/07/2017 Status: F Source: [place] 8:39 AM [facility] REPOSITORY TYPE CODE TESTS RESULT OUT OF REFERENCE UNITS RANGE LAB CHOL <200 mg/dL Cholesterol 190 Result Comment: <200 mg/dL, Desirable 200-239 mg/dL, Borderline high >239 mg/dL, High LAB TRIGLY <150 mg/dL Triglyceride High 268 Result Comment: <150 mg/dL, Normal 150-199 mg/dL, Borderline high 200-499 mg/dL, High >499 mg/dL, Very high LAB HDL >39 mg/dL HDL-Cholesterol Low 36 Result Comment: 40-59 mg/dL, Acceptable >59 mg/dL, High: Negative risk factor for coronary heart disease <40 mg/dL, Low: Positive risk factor for coronary heart disease LAB LDL <100 mg/dL LDL-Cholesterol High 100 Result Comment: <100 mg/dL, Optimal 100-129 mg/dL, Near optimal/above optimal 130-159 mg/dL, Borderline high 160-189 mg/dL, High >189 mg/dL, Very high Secondary prevention optimal LDL Cholesterol levels are recommended to be < 70 mg/dL LAB NONHDL <130 mg/dL Non HDL High Cholesterol 154 Result Comment: <130 mg/dL, Optimal 130-159 mg/dL, Near optimal/above optimal 160-189 mg/dL, Borderline high 190-219 mg/dL, High >219 mg/dL, Very high Secondary prevention optimal non HDL Cholesterol levels are recommended to be < 100 mg/dL LAB FT hrs Fasting Time 12 LAB VLDL <30 mg/dL High VLDL Cholesterol 54 LAB TCHDL <5.10 High TC:HDL Ratio 5.28 LAB LDLHDL <2.54 High LDL:HDL Ratio 2.78 Result Comment: Reference: 1. National Cholesterol Education Program ATP III Guideline At-A-Glance Quick Desk Reference: National Heart, Lung, and Blood Reeves. National Institutes of Health. 2001: NIH Publication No. 01-3305. 2. An International Atherosclerosis Society position paper: global recommendations for the management of dyslipidemia: executive summary, Atherosclerosis. 2014: 232(2):410-413. Performed By: #### LIPB, HBA1C #### [facility] [address], [place] [address] HEMOGLOBIN A1C Collected: 12/07/2017 Status: F Source: [place] 8:39 AM [facility] REPOSITORY TYPE CODE TESTS RESULT OUT OF REFERENCE UNITS RANGE LAB HGBA1C 4.0-6.0 % Hemoglobin A1c Unable to assay. No specimen received. Result Comment: Account Credited LAB HBA0 mg/dL Est. Unable to Average Glucose assay. No specimen received. Result Comment: Account Credited Performed By: #### LIPB, HBA1C #### [facility] [address], [place] [address] CNOV Observed: 11/25/2017 Status: COMPLETED Source: [place] 9:10 AM [facility] REPOSITORY Office Visit (SPNMED) YUNIER PATIÑO ([id number]) 1960 F Date Time Provider Department 11/25/17 9:10 AM ELSA LOBO (PAC) SPNMED During your visit today, we recorded the following information about you: Pulse Respiration Blood pressure Weight 76/minute 18/minute 119/75 100.2 kg Height 1.626 m CAMACHO Newman 11/25/2017 10:58 AM Signed [facility] [address] [address] Dear Hany Cota MD, Yunier Patiño is a 57 year old female who comes in to the office on 11/25/2017 for follow-up regarding her Lumbar spine. Pt. Accompanied by: Mother Subjective: Compared to her last visit she is the same. Ms. 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 Her primary care provider had ordered a functional capacity evaluation in September 2017 and she went to the test but they were unable to completed because she was in too much pain and sitting in a wheelchair. I have reordered this test after evaluating the lumbar spine with x-rays, dynamic standing lumbar x-rays, and lumbar MRI scan, but the FCE test has not been completed yet. She was also sent for lumbar injection by Dr. Perico Lincoln for mild foraminal stenosis at L4 5. She stated that she never got any relief at all from the injection and the MRI itself looks relatively clear throughout the lumbar region. She has not completed the functional capacity exam yet because a few days before it was to be done, she ended up injuring her left ankle. She is to be following up in the [facility] area for further evaluation of her left ankle injury. ROS: Normal sleep, appetite. No fevers, malaise or unintentional weight loss. Current Outpatient Prescriptions: hydrocodone/acetaminophen (VICODIN ORAL) Take by mouth. Disp: Rfl: ketorolac tromethamine (TORADOL ORAL) Take 10 mg by mouth every 6 hours as needed. Disp: Rfl: cholecalciferol, Vitamin D3, (VITAMIN D3) 50,000 unit cap capsule Take 1 capsule by mouth once each week. Disp: 12 capsule Rfl: 0 albuterol HFA (PROVENTIL HFA, VENTOLIN HFA) 90 mcg/actuation inhaler Inhale 2 Puffs as instructed every 6 hours as needed. Disp: 1 Inhaler Rfl: 0 EPINEPHrine (EPIPEN) 0.3 mg/0.3 mL auto-injector Inject 0.3 mL intramuscularly as needed. Disp: 2 Each Rfl: 2 cyclobenzaprine (FLEXERIL) 10 mg tablet Take 1 tablet by mouth every 8 hours as needed. Disp: 8 tablet Rfl: 0 naproxen (NAPROSYN) 500 mg tablet Take 1 tablet by mouth twice daily as needed (for pain/inflammation). Take with food. Disp: 60 tablet Rfl: 2 levothyroxine (SYNTHROID) 50 mcg tablet Take 1 tablet by mouth once daily. Take on empty stomach. For thyroid. Disp: 30 tablet Rfl: [address] (PROTONIX) 40 mg tablet Take 1 tablet by mouth daily before breakfast. Take on empty stomach, 1/2 hr before meal. Disp: 30 tablet Rfl: 5 SUMAtriptan (IMITREX) 100 mg tablet One table by mouth with onset of headache. Can repeat in and hour but only 2 tabs in 24 hrs. Disp: 12 tablet Rfl: 3 No current facility-administered medications for this visit. Exam: Blood pressure 119/75, pulse 76, resp. rate 18, height 162.6 cm (5' 4), weight 100.2 kg (221 lb), SpO2 98 %. Patient's left ankle is wrapped in an [place] bandage. There does not appear to be any neurovascular compromise distally. Toes are pink and well-perfused. Capillary refill is brisk. Station and Gait: Patient is seated in a wheelchair today and states she cannot get up and stand on her left leg at all. Motor: Motor exam is very difficult to assess. Please see discussion below for further details. Reflexes: Hyporeflexic bilat LE (1/4 bilat patellae and achilles) Sensory: Patient denies sensory deficit in the lower extremities. Imaging: September 24, 2017 lumbar MRI scan showed mild L4 5 foraminal stenosis. Neural canal is patent throughout the visualized lower thoracic and lumbosacral region. Lumbar x-rays do not show abnormal motion, fracture, listhesis or acute findings. There is likely age-appropriate facet degeneration corroborated on MRI. Upon reviewing results of the studies (both reports and actual films) with the patient and her mother, they verbalized the belief that the MRI was not actually the patient's and that [facility] must have mixed them up because the patient had been told that she had disc bulges and spinal stenosis previously. The patient and her mother asked for additional studies with a CT myelogram to prove this. They felt that a CT myelogram study would be more accurate than the MRI scan and would be more able to show what might be causing her low back pain and left leg symptoms. Assessment/Plan: Encounter Diagnosis ICD-10-CM 1. Chronic bilateral low back pain with bilateral sciatica M54.42 CONSULT TO NEUROLOGY M54.41 G89.29 RTC: on an as-needed basis (PRN) Other/Discussion: From a spine standpoint, there does not appear to be an explanation for her symptoms. Her physical exam today is fraught with Gaby's signs. When I attempted to test dorsiflexion, I was also testing EHL function (unannounced). During dorsiflexor testing EHL function was at 5/5 but then when testing the EHL specifically, she exhibited give- way/cogwheel resistance. The remainder of her lower extremity examination was similar in cogwheel resistance and give-way strength, and this was noted in hip flexors, knee extensors, foot plantar flexors. All motor groups at least momentarily exhibited 5/5 strength, and motor groups with momentary apparent strength loss were not dermatomal and not contiguous. Nerve tension signs are absent. The patient will be seeing an orthopedist local to her in [place], [place] for the ankle problem. I am adding a referral to neurology for further evaluation of her complaints of lower extremity weakness and back pain. Additional input may be valuable to rule out other organic causes. She talked about obtaining another local referral for this in the [place], [place] area for this so I printed the referral and gave it to her. I let her know that I don't see anything from a spine standpoint right now that could explain her symptoms. Based on the information I have gathered so far, I cannot certify ongoing off-work status. This document has been created with the use of voice recognition technology. It may contain inaccuracies: (e.g. misspellings, inaccurate syntax or word sense) that have escaped review. CHRISTIANE Coates Ma Referring Provider: AARTI SOTELO ([facility]) [[id number]] Allergies As of Date: 11/25/2017 Noted Allergy Reaction LAGUNA 06/08/2012 7 - Swelling CIPROFLOXACIN 12/17/2015 14 - Other: See Comments Comments: Chest tightness DUST 06/08/2012 7 - Swelling GABAPENTIN 10/14/2017 7 - Swelling Comments: Throat swelling. INSECT PARTS 03/26/2016 7 - Swelling 12 - Shortness of Breath 17 - Myalgia Comments: Pt not sure what bit her but developed redness,difficulty swallowing and swelling of face and neck POLLEN 06/08/2012 7 - Swelling MORPHINE 06/08/2012 11 - Vomiting Date Reviewed: 11/25/2017 Reviewed by: Stephanie Rivas Ma - Fully Assessed Reason for Visit: Follow Up [171] Primary Visit Diagnosis:Chronic bilateral low back pain with bilateral sciatica [M54.42, M54.41, G89.29] Order(s):CONSULT TO NEUROLOGY [9019] Order #: [id number]: 1 Prescriptions as of 11/25/2017 Sig: VICODIN ORAL Take by mouth. TORADOL ORAL Take 10 mg by mouth every 6 h* CHOLECALCIFEROL (VITAMIN D3) * Take 1 capsule by mouth once * ALBUTEROL SULFATE HFA 90 MCG/* Inhale 2 Puffs as instructed * EPINEPHRINE 0.3 MG/0.3 ML INJ* Inject 0.3 mL intramuscularly* CYCLOBENZAPRINE 10 MG TABLET Take 1 tablet by mouth every * NAPROXEN 500 MG TABLET Take 1 tablet by mouth twice * LEVOTHYROXINE 50 MCG TABLET Take 1 tablet by mouth once d* PANTOPRAZOLE 40 MG TABLET,DEL* Take 1 tablet by mouth daily * SUMATRIPTAN 100 MG TABLET One table by mouth with onset* Problem List As Of Date 11/25/2017 Noted Resolved Migraine without aura and without status migrai* Priority: A More... More... Acquired hypothyroidism [E03.9] INVALID FOR* Priority: A More... More... Encounter for screening for diabetes mellitus [*INVALID FOR* Encounter for screening for cardiovascular diso*INVALID FOR* Encounter for gynecological examination without*INVALID FOR* Priority: E More... Chronic obstructive pulmonary disease (HCC) [J4*INVALID FOR* Priority: B More... Hemorrhoids, internal, with bleeding [K64.8] INVALID FOR* Priority: C Well adult exam [Z00.00] INVALID FOR* Priority: E More... More... Chronic bilateral low back pain with bilateral *INVALID FOR* Priority: M Radiculopathy, lumbar region [M54.16] INVALID FOR* Priority: M Lumbago-sciatica due to displacement of lumbar *INVALID FOR* Priority: M Ex-smoker [Z87.891] INVALID FOR* Priority: B More... Lung nodule [R91.1] INVALID FOR* Priority: B More... Follow-up and Disposition History Recorded Encounter Status:Closed by ELSA LOBO PA-C on 11/25/17 PROGRESS Observed: 11/25/2017 Status: COMPLETED Source: [place] 9:06 AM [facility] [place] REPOSITORY HNO ID: [id number] Author: Elsa Hamilton ([facility]) Abdulaziz Service: (none) Author Type: Physician Wood Tile Installation Helper Type: Progress Notes Filed: 11/25/2017 10:58 AM Note Text: Elsa Lobo PA-C [facility] [address] [place] [address] Dear Hany Cota MD, Yunier Messer Haroon is a 57 year old female who comes in to the office on 11/25/2017 for follow-up regarding her Lumbar spine. Pt. Accompanied by: Mother Subjective: Compared to her last visit she is the same. Ms. 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 Her primary care provider had ordered a functional capacity evaluation in September 2017 and she went to the test but they were unable to completed because she was in too much pain and sitting in a wheelchair. I have reordered this test after evaluating the lumbar spine with x-rays, dynamic standing lumbar x-rays, and lumbar MRI scan, but the FCE test has not been completed yet. She was also sent for lumbar injection by Dr. Perico Lincoln for mild foraminal stenosis at L4 5. She stated that she never got any relief at all from the injection and the MRI itself looks relatively clear throughout the lumbar region. She has not completed the functional capacity exam yet because a few days before it was to be done, she ended up injuring her left ankle. She is to be following up in the [facility] for further evaluation of her left ankle injury. ROS: Normal sleep, appetite. No fevers, malaise or unintentional weight loss. Current Outpatient Prescriptions: hydrocodone/acetaminophen (VICODIN ORAL) Take by mouth. Disp: Rfl: ketorolac tromethamine (TORADOL ORAL) Take 10 mg by mouth every 6 hours as needed. Disp: Rfl: cholecalciferol, Vitamin D3, (VITAMIN D3) 50,000 unit cap capsule Take 1 capsule by mouth once each week. Disp: 12 capsule Rfl: 0 albuterol HFA (PROVENTIL HFA, VENTOLIN HFA) 90 mcg/actuation inhaler Inhale 2 Puffs as instructed every 6 hours as needed. Disp: 1 Inhaler Rfl: 0 EPINEPHrine (EPIPEN) 0.3 mg/0.3 mL auto-injector Inject 0.3 mL intramuscularly as needed. Disp: 2 Each Rfl: 2 cyclobenzaprine (FLEXERIL) 10 mg tablet Take 1 tablet by mouth every 8 hours as needed. Disp: 8 tablet Rfl: 0 naproxen (NAPROSYN) 500 mg tablet Take 1 tablet by mouth twice daily as needed (for pain/inflammation). Take with food. Disp: 60 tablet Rfl: 2 levothyroxine (SYNTHROID) 50 mcg tablet Take 1 tablet by mouth once daily. Take on empty stomach. For thyroid. Disp: 30 tablet Rfl: [address] (PROTONIX) 40 mg tablet Take 1 tablet by mouth daily before breakfast. Take on empty stomach, 1/2 hr before meal. Disp: 30 tablet Rfl: 5 SUMAtriptan (IMITREX) 100 mg tablet One table by mouth with onset of headache. Can repeat in and hour but only 2 tabs in 24 hrs. Disp: 12 tablet Rfl: 3 No current facility-administered medications for this visit. Exam: Blood pressure 119/75, pulse 76, resp. rate 18, height 162.6 cm (5' 4), weight 100.2 kg (221 lb), SpO2 98 %. Patient's left ankle is wrapped in an Rome bandage. There does not appear to be any neurovascular compromise distally. Toes are pink and well-perfused. Capillary refill is brisk. Station and Gait: Patient is seated in a wheelchair today and states she cannot get up and stand on her left leg at all. Motor: Motor exam is very difficult to assess. Please see discussion below for further details. Reflexes: Hyporeflexic bilat LE (1/4 bilat patellae and achilles) Sensory: Patient denies sensory deficit in the lower extremities. Imaging: September 24, 2017 lumbar MRI scan showed mild L4 5 foraminal stenosis. Neural canal is patent throughout the visualized lower thoracic and lumbosacral region. Lumbar x-rays do not show abnormal motion, fracture, listhesis or acute findings. There is likely age-appropriate facet degeneration corroborated on MRI. Upon reviewing results of the studies (both reports and actual films) with the patient and her mother, they verbalized the belief that the MRI was not actually the patient's and that [facility] must have mixed them up because the patient had been told that she had disc bulges and spinal stenosis previously. The patient and her mother asked for additional studies with a CT myelogram to prove this. They felt that a CT myelogram study would be more accurate than the MRI scan and would be more able to show what might be causing her low back pain and left leg symptoms. Assessment/Plan: Encounter Diagnosis ICD-10-CM 1. Chronic bilateral low back pain with bilateral sciatica M54.42 CONSULT TO NEUROLOGY M54.41 G89.29 RTC: on an as-needed basis (PRN) Other/Discussion: From a spine standpoint, there does not appear to be an explanation for her symptoms. Her physical exam today is fraught with Gaby's signs. When I attempted to test dorsiflexion, I was also testing EHL function (unannounced). During dorsiflexor testing EHL function was at 5/5 but then when testing the EHL specifically, she exhibited give- way/cogwheel resistance. The remainder of her lower extremity examination was similar in cogwheel resistance and give-way strength, and this was noted in hip flexors, knee extensors, foot plantar flexors. All motor groups at least momentarily exhibited 5/5 strength, and motor groups with momentary apparent strength loss were not dermatomal and not contiguous. Nerve tension signs are absent. The patient will be seeing an orthopedist local to her in [place], [place] for the ankle problem. I am adding a referral to neurology for further evaluation of her complaints of lower extremity weakness and back pain. Additional input may be valuable to rule out other organic causes. She talked about obtaining another local referral for this in the [place], [place] area for this so I printed the referral and gave it to her. I let her know that I don't see anything from a spine standpoint right now that could explain her symptoms. Based on the information I have gathered so far, I cannot certify ongoing off-work status. This document has been created with the use of voice recognition technology. It may contain inaccuracies: (e.g. misspellings, inaccurate syntax or word sense) that have escaped review. CHRISTIANE Coates Ma EMERGENCY DEPARTMENT Observed: 11/20/2017 Status: F Source: [place] SUMMARY 1:[address] [facility] REPOSITORY [facility] Medical Records Department [address] [place] [address] Emergency Department Summary 11/20/17 0030 MR#: [id number] Acct: [id number] Name: YUNIER PATIÑO Rep #: [id number] : 1960 57 From: Michelet Tate MD PCP: Hany Cota MD Status: DEP ER - ER Visit Summary Date of Service: 11/20/17 Chief Complaint: Left ankle pain History of Present Illness: The patient is a [address] Cota and Dr. Lincoln. She reports that she was going down the steps this evening with a cane when her legs gave out and she fell. She reports that she has a throbbing pain in her left ankle that is 10 out of 10 in severity. Is worsened by movement. She is taken ibuprofen without relief Patient denies any blow to the head or loss of consciousness. No neck, shoulder, wrist, or hip pain. Physical Examination: Vitals: Stable. Afebrile. Neck: No vertebral tenderness. Full ROM without difficulty. Cleared by NEXUS criteria. Back: No vertebral tenderness. General: A AND O x 3. NAD. Cardiovascular exam: Regular rate and rhythm, no murmur, rub or gallop. Respiratory exam: Chest nontender. No crepitus. Clear to auscultation bilaterally. No wheezes or stridor. Abdominal exam: Soft, nontender, nondistended, normal bowel sounds. No pain in RUQ or LUQ specifically. No peritoneal signs. Extremity: Mild to palpation over the lateral malleolus. There is soft tissue swelling and moderate tenderness palpation distal to the lateral malleolus. There is no pain over the medial malleolus. No pain over the base the fifth metatarsal. No pain over the proximal fibula. She is neurovascular intact distal to this.. Test Results: X-rays of her foot and ankle are negative. Emergency Department Course and Treatment: Patient was treated with [place] and placed in an Rome wrap. Treatment Plan: Patient will be discharged [place]. Instructed to follow-up with Dr. Wright in 1 week if not improving. Return to the emergency department for any worsening symptoms. Disposition: To home in improved and stable condition. Impression: 1. Left ankle sprain. This note was generated with Bannermanation software. It may contain incorrect words, spelling, and punctuation that were not noted in review of the chart prior to signing ED Disposition - Plan for ED Patient: Chief Complaint: Lower Extremity Injury Instructions: ED Sprain Ankle W X Ray Prescriptions: Hydrocodone/Acetaminophen [Wheatland 5-325 Tablet] 1 - 2 each PO 4X/DAY PRN PRN 5 Days #20 tablet PRN Reason: Pain Referrals: Hany Wright DPM [STAFF PHYSICIAN] - 1 Week if not improving What to do if you have Problems For any increased pain, shortness of breath, bleeding, nausea or vomiting, chest pain, or any unexpected problems, contact your Primary Care Provider. Call [facility] ([phone]) or report to the closest Emergency Room. Call 911 if necessary. 11/20/17 0120 <Electronically signed by Michelet Tate MD> Date Michelet Tate MD Cosigner Signature (If Indicated): Date CC: Hany Cota MD ANKLE MIN 3 VIEWS Observed: 11/20/2017 Status: F Source: [place] 12:[address] [facility] REPOSITORY [facility] Imaging Services [address] [place] [id number] Ankle min 3 Views MR#: [id number] Acct: [id number] Name: YUNIER PATIÑO Rep #: [id number] : 1960 F 57 From: Emeka Ba MD PCP: Hany Cota MD Status: REG ER Study: Ankle min 3 Views Date of Exam: 11/20/17 Exam# [id number] Ordering Dr: Michelet Tate MD STUDY: X-RAY - LEFT ANKLE REASON FOR EXAM: Female, 57 years old. Pain TECHNIQUE: 3 view(s) of the ankle. COMPARISON: None. FINDINGS: There are no acute fractures or dislocations. The ankle mortise and the subtalar joints are normal. There is a bony enthesophyte from the posterior margin of the os calcis. RAD/Ankle min 3 Views IMPRESSION: No fracture. Small bony enthesophyte from the posterior margin of the os calcis Electronically Signed: Emeka Ba, at 0:40 EDT Tel , Service support , CC: Hany Cota MD; Michelet Tate MD Migratory Farm Hand: Signed FOOT MIN 3 VIEWS Observed: 11/19/2017 Status: F Source: [place] 10:[address] [facility] REPOSITORY [facility] Imaging Services [address] [place] [id number] Foot min 3 Views MR#: [id number] Acct: [id number] Name: YUNIER PATIÑO Rep #: [id number] : 1960 F 57 From: Naun Broussard MD PCP: Hany Cota MD Status: PRE ER Study: Foot min 3 Views Date of Exam: 11/19/17 Exam# [id number] Ordering Dr: Sagar, Ed P. STUDY: X-RAY - LEFT FOOT CLINICAL: Female, 57 years old. FELL, ROLLED ANKLE TECHNIQUE: 3 view(s) of the foot. COMPARISON: None. FINDINGS: There is demineralization of the rear and midfoot bones. There is an enthesophyte involving the posterior superior calcaneus at the site of insertion of the Achilles tendon. Normal visualized subtalar, talonavicular, calcaneocuboid, tarsal and tarsometatarsal articulations. There is demineralization of the metatarsi. Normal metatarsophalangeal joint of the great toe. Normal tibial and fibular sesamoid bones. Normal interphalangeal joint of the great toe. Normal phalanges of the great toe. Normal second through fifth metatarsophalangeal joints. Normal interphalangeal joints and phalanges of the lesser toes. The soft tissue structures are unremarkable. RAD/Foot min 3 Views IMPRESSION: There is an enthesophyte involving the posterior superior calcaneus at the site of insertion of the Achilles tendon. There is demineralization of the bones of the foot Electronically Signed: Naun Broussard MD at 23:30 EDT , Service support , CC: ED PHYSICIAN PROVIDER; Hany Cota MD Migratory Farm Hand: Signed PT ED Observed: 10/29/2017 Status: COMPLETED Source: [place] 11:03 AM CL[facility]IC OTHER CAMPUS REPOSITORY O ID: [id number] Author: Aidan (Rn) SANJANA Hsu Service: Nursing Author Type: Registered Nurse Type: Patient Education Filed: 10/29/2017 11:04 AM Note Text: PATIENT EDUCATION TOPIC: PROCEDURE / SURGERY: Post-op Teaching: PATIENT NAME: Yunier Patiño PATIENT LOCATION: MD Surgery/MD Surgery READINESS TO LEARN COGNITIVE ABILITY: Alert and oriented MOTIVATION TO LEARN: Eager FAMILY SUPPORT: High - Very involved in pt care INSTRUCTION PROVIDED TO: Patient PATIENT LEARNS BEST BY: Individual Instruction Verbal Instruction FACTORS AFFECTING LEARNING: None PHYSICAL LIMITATIONS AFFECTING LEARNING: None LEARNING RESPONSE DIAGNOSIS: ADULT: PATIENT/FAMILY RESPONSE: Verbalizes understanding of: METHOD OF INSTRUCTION: Individual instruction Verbal instruction FOLLOW-UP PLAN: Patient instructed to call with any further issues Follow-up with Primary Care INSTRUCTIONAL AIDS USED: NA SUPPLEMENTAL MATERIAL PROVIDED TO PATIENT: None REFERRAL (RECOMMENDATION): None Electronically Signed By: Aidan Hsu RN XR FLUOROSCOPY Observed: 10/29/2017 Status: F Source: [place] 10:55 AM [facility] REPOSITORY * * *Final Report* * * DATE OF EXAM: Oct 29 2017 10:55AM [facility] 5513 - XR FLUOROSCOPY / PROCEDURE REASON: LEFT L4-L5 TRANSFORAMINAL ALTON FOR PAIN * * * * Physician Interpretation * * * * INDICATION: LEFT L4-L5 TRANSFORAMINAL ALTON FOR PAIN TECHNIQUE: Fluoroscopy with 2 views of the lower lumbar spine FLUOROSCOPY TIME: 0:18 FINDINGS/ IMPRESSION: A needle with injected contrast is seen in the left L4-5 foramen. Please refer to the performing LIP's report. Migratory Farm Hand: ARIA Transcribe Date/Time: Oct 29 2017 3:44P Dictated by : LEYDA BACA MD This examination was interpreted and the report reviewed and electronically signed by: LEYDA BACA MD on Oct 29 2017 3:44PM EST [id number] [id number] NO Observed: 10/29/2017 Status: COMPLETED Source: [place] 10:54 AM [facility] REPOSITORY HNO ID: [id number] Author: Perico Lincoln Service: Pain Management Author Type: Physician Type: Operative Report Filed: 10/29/2017 10:55 AM Note Text: PATIENT NAME: Yunier Patiño SERVICE DATE: 10/29/2017 PROCEDURE NOTE PREOPERATIVE DIAGNOSIS(ES) Lumbar radiculopathy Lumbar disc displacement Lumbar canal stenosis without neurogenic claudication Lumbar DDD POSTOPERATIVE DIAGNOSIS(ES): Same OPERATION: Left L4-5 lumbar transforaminal epidural steroid injection under fluoroscopy. ANESTHESIA: versed 3mg, fentanyl 50mcg IV. INDICATIONS: The patient presents for lumbar transforaminal epidural steroid injection. Since the last visit, the patient denies any new pain complaints and denies any focal neurological deficits. As discussed and outlined in the office and confirmed today, the plan is to proceed with lumbar transforaminal epidural steroid injection. The risks and benefits of the procedure were discussed. Specifically, the risks of bleeding, infection, inadvertent dural puncture, spinal heaches, vasovagal reaction, epidural hematoma, partial or permanent nerve injury were covered. The potential side effects of medications used in procedures including increase in lumbar pain, headaches, facial redness or warmth (flushing), anxiety or mood swings, sleeplessness, fever, high blood sugar, brief reduction in immunity were discussed. The patient expressed understanding of potential risks and wishes to proceed with the procedure. OPERATIVE PROCEDURE: The patient was brought to the operating room. The patient was placed in the prone position with routine monitors placed. The lower back was prepped in sterile fashion. Upon AP projection under fluoroscopy, L4-5 level was identified. The fluoroscopy was rotated in oblique projection to identify the neuroforamen. Entry point was marked and anesthetized with 0.25% Marcaine. This was followed by insertion of a 5 inch spinal needle, which was inserted and advanced towards the 12 o' clock of the L4-5 neuroforamen. Once the Needle tip contacted the inferior lateral aspect of the pedicle, aspiration was performed which was negative for blood or CSF. This was followed by injection of Omnipaque 300, which revealed a spread through the neuroforamen into the anterior epidural space. There was no evidence of intravascular or intrathecal flow. This was then followed by a total injection of 3 mL of 0.25% Marcaine with 40 mg of Depomedrol. The patient tolerated the procedure well. The needle was removed intact. Dry dressing was placed over the injection site. The patient was taken to the recovery room in stable condition. EBL: nil Start time: 10:47 AM End time: 10:52 AM I was present the entire time and personally performed the procedure. SIGNATURE: Perico Lincoln MD DATE: October 29, 2017 TIME: 10:54 AM HISTORY PHYSICAL Observed: 10/29/2017 Status: COMPLETED Source: [place] 10:34 AM [facility] REPOSITORY [facility] ID: [id number] Author: Perico Lincoln Service: Pain Management Author Type: Physician Type: HANDP Filed: 10/29/2017 10:35 AM Note Text: HISTORY AND PHYSICAL EXAMINATION PATIENT NAME: Yunier Patiño DATE of SERVICE: 10/29/2017 Yunier Patiño is here for the pain mangement procedure. The patient presents with persistent pain complaints. Yunier Patiño denies any interval changes or new pain complaints or focal neurologic deficits. PAST MEDICAL HISTORY Diagnosis Date - COPD (chronic obstructive pulmonary disease) (HCC) - Ex-smoker 10/19/2017 Started around 10-11 yo up to 1/2 PPD and quite 2008 - GERD (gastroesophageal reflux disease) - Headache(784.0) starting 47 years old - Hypothyroidism 06/11/2012 PAST SURGICAL HISTORY Procedure Laterality Date - CHOLECYSTECTOMY 07/17/2015 - COLONOSCOP W/ OR W/O BRSH SPEC 09/13/13 few diverticula, repeat 10 yrs - EGD W/O BRSH SPECIMEN W/BX 09/13/13 gastritis - FECAL OCCULT BLOOD TEST 07/16/2017 negative - HEMORRHOIDECTOMY 07/28/2017 - LIGATION OF HEMORRHOID(S) 05/05/2016 - PAST SURGICAL HISTORY OF - PAST SURGICAL HISTORY OF breast cyst, right? - REMOVAL OF TONSILS,<14 Y/O Tonsillectomy - REVISE MEDIAN N/CARPAL TUNNEL SURG 05/26/12 Carpal tunnel decomp-bilateral - TOOTH EXTRACTION ~2009 all teeth extracted - TOTAL ABDOM HYSTERECTOMY 1994 KENNEDY, ovaries? menorrhagia, benign Social History Marital status: Single Spouse name: Years of education: Number of children: 2 Occupational History Occupation Employer [employer] Social History Main Topics Smoking status: Former Smoker Packs/day: 0.50 Years: 20.00 Types: Cigarettes Quit date: 05/18/2008 Smokeless tobacco: Never Used Alcohol use: No Drug use: No Sexual activity: Yes Partners with: Male control/protection: Surgical Social History Narrative from her since 1990 ( did not show twice for divorce). FAMILY HISTORY Problem Relation Age of Onset - Ischemic Heart Disease Father 68 [place] 72 - Prostate Cancer Father - Coronary Artery Disease Father early 50's - ischemic bowel disease [OTHER] Father ?diverticulosis - Alzheimer's Disease Maternal Grandmother - Lipids Mother - Thyroid Mother - Thyroid Sister ALLERGIES Allergen Reactions - Laguna Swelling - Ciprofloxacin Other: See Comments Chest tightness - Dust Swelling - Gabapentin Swelling Throat swelling. - Insect Parts Swelling, Shortness of Breath, Myalgia Pt not sure what bit her but developed redness,difficulty swallowing and swelling of face and neck - Pollen Swelling - Morphine Vomiting Current Facility-Administered Medications: NaCl 0.9% iv infusion 30 mL/hr INTRAVENOUS CONTINUOUS Physical Exam: Performed in conjunction with observation. The patient is alert and oriented x3. The patient is in no acute distress. Neck: Supple. The range of motion is intact. Lungs: clear CVR: RRR. Extremities: no reported edema or erythema. Examination indicates no changes Impression: Lumbar radiculopathy Plan: The informed consent has been obtained. The plan is to proceed with the procedure as planned. SIGNATURE: Perico Lincoln MD DATE: October 29, 2017 TIME: 10:34 AM PT ED Observed: 10/29/2017 Status: COMPLETED Source: [place] 9:15 AM [facility] OTHER CAMPUS REPOSITORY HNO ID: [id number] Author: Jana (Rn) SANJANA Keller Service: (none) Author Type: Registered Nurse Type: Patient Education Filed: 10/29/2017 9:16 AM Note Text: PRE OP LEARNING ASSESSMENT PROCEDURE/SURGERY: SURGERY: Left lumbar L4-5 Transforamin READINESS TO LEARN COGNITIVE ABILITY: Alert and oriented MOTIVATION TO LEARN: Interested FAMILY SUPPORT: Unable to assess - Family not present PATIENT LEARNS BEST BY: Individual Instruction Verbal Instruction FACTORS AFFECTING LEARNING: None PHYSICAL LIMITATIONS AFFECTING LEARNING: None Electronically Signed By: Jana Keller RN In Department: [facility] SURGERY PERIOD / VOLUME Collected: 10/22/2017 Status: F Source: [place] 5:10 AM [facility] [place] REPOSITORY TYPE CODE TESTS RESULT OUT OF REFERENCE UNITS RANGE LAB PER hr Period 23 LAB VOL mL Volume 1880 LAB COLSDT Collection Start Date LAB COLSTM Collection Start 344 Time LAB COLEDT Collection End Date LAB COLETM Collection End 509 Time Performed By: #### PV, [id number] #### [facility] [address] [place], [place] [address] PROTEIN URINE 24 HR Collected: 10/22/2017 Status: F Source: [place] 5:10 AM [facility] REPOSITORY TYPE CODE TESTS RESULT OUT OF REFERENCE UNITS RANGE LAB TP24GM <0.16 gm/24 Hr Protein Urine 0.08 Performed By: #### PV, UTP24 #### [facility] [employer] [address] [place] [address] COMP METABOLIC PANEL Collected: 10/20/2017 Status: F Source: [place] 11:51 AM [facility] REPOSITORY TYPE CODE TESTS RESULT OUT OF REFERENCE UNITS RANGE LAB TP 6.3-8.0 g/dL Protein, Total 6.3 LAB ALB 3.9-4.9 g/dL Albumin 4.1 LAB CA 8.5-10.2 mg/dL Calcium, Total 9.0 LAB TBIL 0.2-1.3 mg/dL Bilirubin, Total 0.5 LAB ALKP 32-117 U/L Alkaline Phosphatase 71 LAB AST 13-35 U/L AST 26 LAB GLU 74-99 mg/dL Glucose 94 Result Comment: The [place] [employer] (ADA) provides guidance for cutoff values for fasting glucose and random glucose. The ADA defines fasting as no caloric intake for at least 8 hours. Fas ting plasma glucose results between 100 to 125 mg/dL indicate increased risk for diabetes (prediabetes). Fasting plasma glucose results greater than or equal to 126 mg/dL meet the criteria for diagnosis of diabetes. In the absence of unequivocal hyperglycemia, results should be confirmed by repeat testing. In a patient with classic symptoms of hyperglycemia or hyperglycemic crisis, random plasma glucose results greater than or equal to 200 mg/dL meet the criteria for diagnosis of diabetes. Reference: Standards of Medical Care in Diabetes 2016, [place] [employer]. Diabetes Care. 2016.39(Suppl 1). LAB BUN 7-21 mg/dL BUN 13 LAB CRET 0.58-0.96 mg/dL Creatinine 0.74 LAB NA 136-144 mmol/L Sodium 139 LAB K 3.7-5.1 mmol/L Potassium 4.0 LAB CL 97-105 mmol/L Chloride 103 LAB CO2 22-30 mmol/L CO2 25 LAB AGAP 9-18 mmol/L Anion Gap 11 LAB ALT 7-38 U/L ALT 36 LAB GFRAA eGFR- Amer. >60 LAB GFRNAA . eGFR-All Other Races >60 Result Comment: eGFR (Estimated GFR) Units of measure: mL/min/1.73 meters squared eGFR is derived from the reexpressed MDRD Study equation using the following parameters: serum creatinine, age, gender and race. The creatinine assay has been calibrated to be traceable to IDMS. An eGFR <60 mL/min/1.73m2 for >3 months is consistent with chronic kidney disease. Refer to KDOQI guidelines for clinical interpretation. In patients with unstable renal function, e.g. those with acute kidney injury, the eGFR may not accurately reflect actual GFR. Performed By: #### CMP, LD6, TSH, PTHI, FT4, T3, VITD, SEPG, MMA #### [facility] [employer] [address] [place] [phone] LD Collected: 10/20/2017 Status: F Source: [facility] 11:51 AM [facility] REPOSITORY TYPE CODE TESTS RESULT OUT OF RANGE REFERENCE UNITS LAB LD 135-214 U/L LD 199 Performed By: #### CMP, LD6, TSH, PTHI, FT4, T3, VITD, SEPG, MMA #### [place] [phone] TSH Collected: 10/20/2017 Status: F Source: [place] 11:51 AM [facility] REPOSITORY TYPE CODE TESTS RESULT OUT OF RANGE REFERENCE UNITS LAB TSH 0.400-5.500 uU/mL TSH 2.790 Performed By: #### CMP, LD6, TSH, PTHI, FT4, T3, VITD, SEPG, MMA #### [place] [phone] PTH, INTACT Collected: 10/20/2017 Status: F Source: [place] 11:51 AM [facility] REPOSITORY TYPE CODE TESTS RESULT OUT OF REFERENCE UNITS RANGE LAB PTH 15-65 pg/mL PTH, Intact 42 Performed By: #### CMP, LD6, TSH, PTHI, FT4, T3, VITD, SEPG, MMA #### [place] [id number] [place] [phone] FREE T4 Collected: 10/20/2017 Status: F Source: [place] 11:51 AM [facility] REPOSITORY TYPE CODE TESTS RESULT OUT OF RANGE REFERENCE UNITS LAB FT4 0.9-1.7 ng/dL Free T4 1.1 Performed By: #### CMP, LD6, TSH, PTHI, FT4, T3, VITD, SEPG, MMA #### [place] [phone] T3 Collected: 10/20/2017 Status: F Source: [facility] 11:51 AM [facility] REPOSITORY TYPE CODE TESTS RESULT OUT OF RANGE REFERENCE UNITS LAB T3 79-165 ng/dL T3 111 Performed By: #### CMP, LD6, TSH, PTHI, FT4, T3, VITD, SEPG, MMA #### [facility] [employer] [address] [place], [place] [address] VITAMIN D 25 HYDROXY Collected: 10/20/2017 Status: F Source: [place] 11:51 AM [facility] REPOSITORY TYPE CODE TESTS RESULT OUT OF REFERENCE UNITS RANGE LAB VITD 31.0-80.0 ng/mL Low Vitamin D 25 14.4 Hydroxy Result Comment: Classification of 25 [place] Vitamin D status: Insufficiency/Moderate Deficiency: < or = 30 ng/mL Sufficiency/Optimal Levels: 31 to 80 ng/mL Toxicity: > 100 ng/mL Test performed by chemiluminescent immunoassay. Performed By: #### CMP, LD6, TSH, PTHI, FT4, T3, VITD, SEPG, MMA #### [facility] [employer] [address] [place] [address] PROTEIN ELECTROPHOR. Collected: 10/20/2017 Status: F Source: [place] 11:51 AM [facility] REPOSITORY TYPE CODE TESTS RESULT OUT OF REFERENCE UNITS RANGE LAB TPSPE 6.0-8.4 g/dL Total Protein, SPE 6.3 LAB ALBE 3.37-4.23 gm/dL Albumin 3.63 LAB A1GL 0.18-0.31 gm/dL Alpha 1 Globulin 0.21 LAB A2GL 0.52-0.97 gm/dL Alpha 2 Globulin 0.69 LAB BEGL 0.84-1.36 gm/dL Beta Globulin 0.92 LAB GAGL 0.70-1.44 gm/dL Gamma Globulin 0.85 LAB SPEINT Interpretation SEE COMMENT Result Comment: No definitive M protein is identified on protein electrophoresis. LAB LOC M Protein N/A Location LAB GPERDL 0.00 gm/dL M Chris 0.00 Concentratn LAB SPESTF SPE Staff Review Reviewed by Stephany Grullon MD. ([id number]) Performed By: #### CMP, LD6, TSH, PTHI, FT4, T3, VITD, SEPG, MMA #### [facility] [employer] [address] [place], [place] [address] METHYLMALONIC ACID Collected: 10/20/2017 Status: F Source: [place] 11:51 AM [facility] REPOSITORY TYPE CODE TESTS RESULT OUT OF REFERENCE UNITS RANGE LAB MMA 79-376 nmol/L Methylmalonic Acid 180 Result Comment: This test was developed and its performance characteristics determined by [facility]'s [facility] ([facility]). It has not been cleared or approved by the FDA. [facility] is regulated under CLIA as qualified to perform high-complexity testing. This test is used for clinical purposes. It should not be regarded as investigational or for research. Performed By: #### CMP, LD6, TSH, PTHI, FT4, T3, VITD, SEPG, MMA #### [facility] [employer] [address] [place], [place] [address] PROGRESS Observed: 10/20/2017 Status: COMPLETED Source: [place] 5:56 AM [facility] REPOSITORY HNO ID: [id number] Author: Sarita Pretty Service: (none) Author Type: Physician Type: Progress Notes Filed: 10/20/2017 6:07 AM Note Text: FOLLOW UP PATIENT VISIT Yunier Patiño is as 57 year old patient who presents with N/T to her R forefoot which is NEW COMPLAINT TODAY. Toe is stingling all over the toe. Pain 10/10 when she gets its. Unable to stand/walk. Lasts about 15-20 min at time. Has been happening since Apr 2017. Getting worse. Does have multiple back issues right now including spinal stenosis, bulging discs as well and is using a walker to get around not sure if its related to this or not. She is sheduled with Dr. Lincoln for injections to help with the pain. Does have sciatic symptoms on the opposite side. PAIN EVALUATION 10/16/2017 Pain Score: 10 Pain Location: Toe Description: - Stinging Duration Amount of Time: 6 Duration Units: Months Intervention: Relaxation PCP:Hany Cota MD PAST MEDICAL HISTORY Diagnosis Date - COPD (chronic obstructive pulmonary disease) (HCC) - Ex-smoker 10/19/2017 Started around 10-11 yo up to 1/2 PPD and quite 2008 - GERD (gastroesophageal reflux disease) - Headache(784.0) starting 47 years old - Hypothyroidism 06/11/2012 Current Outpatient Prescriptions: albuterol HFA (PROVENTIL HFA, VENTOLIN HFA) 90 mcg/actuation inhaler Inhale 2 Puffs as instructed every 6 hours as needed. EPINEPHrine (EPIPEN) 0.3 mg/0.3 mL auto-injector Inject 0.3 mL intramuscularly as needed. cyclobenzaprine (FLEXERIL) 10 mg tablet Take 1 tablet by mouth every 8 hours as needed. baclofen (LIORESAL) 10 mg tablet Take 1 tablet by mouth twice daily. naproxen (NAPROSYN) 500 mg tablet Take 1 tablet by mouth twice daily as needed (for pain/inflammation). Take with food. levothyroxine (SYNTHROID) 50 mcg tablet Take 1 tablet by mouth once daily. Take on empty stomach. For thyroid. pantoprazole DR (PROTONIX) 40 mg tablet Take 1 tablet by mouth daily before breakfast. Take on empty stomach, 1/2 hr before meal. ALBUTEROL INHALATION Inhale as instructed. SUMAtriptan (IMITREX) 100 mg tablet One table by mouth with onset of headache. Can repeat in and hour but only 2 tabs in 24 hrs. No current facility-administered medications for this visit. ALLERGIES Allergen Reactions - Laguna Swelling - Ciprofloxacin Other: See Comments Chest tightness - Dust Swelling - Gabapentin Swelling Throat swelling. - Insect Parts Swelling, Shortness of Breath, Myalgia Pt not sure what bit her but developed redness,difficulty swallowing and swelling of face and neck - Pollen Swelling - Morphine Vomiting OBJECTIVE: Constitutional: Pt is a well developed 57 year old female who is alert, oriented, cooperative and in no apparent distress. Eyes: Following during examination. No redness or drainage. Respiratory: RR normal and nonlabored. Even breathing. No evidence of distress. Psychology: Patient is engaged during conversation. Normal affect and mood. Does not appear depressed or anxious. Vascular: palpable Dorsalis Pedis and Posterior Tibial Pulses B/L Capillary Fill time < 3 seconds to digits 1-5 B/L skin temperature warm to warm tibial tuberosity to the digits B/L Neurological: Intact epicritic sensation b/l Dermatological: Skin appears well hydrated and supple. Nails are not ingrown today. NO proudflesh noted at the nail border. No drainage, malodor or calor is noted. No cellulitis or lymphangitis is noted. MS: +pain IMS R 3rd. +pain with medial to lateral compression of the foot. +Jhony's click. Radiographs: defer A: Neuroma/bursa likely R 3rd IMS-new complaint PLAN: History and physical examination Pressure relief insoles Met pad instruction today. Dispensed met pads. Already on anti-inflammatory RTC if not improving. Sarita Pretty DPM PROGRESS Observed: 10/19/2017 Status: COMPLETED Source: [place] 11:47 AM [facility] REPOSITORY HNO ID: [id number] Author: Hany Cota Service: (none) Author Type: Physician Type: Progress Notes Filed: 10/19/2017 12:31 PM Note Text: Chief Complaint Patient presents with: Recheck: PT, CT scan, Spinal specialist HPI Yunier Patiño is a 57 year old female who presents here today for f/u low back pain and results of CTA abd. Patient has been to spine and not feeling surgery is needed at this time and is seeing Dr. Lincoln. MRI does show a disc herniation at L4 with contact to the left nerve root. Patient does have radicular leg pain at times and weakness. Patient with walking with walker to prevent fall. Reviewed CTA and shows small 5 mm nodule in the right lower lob, a benign liver hemangioma and a vascular mass on the right and left suspected possible posterior pelvic varices. Past medical history, appointments, medications, allergies reviewed. Previous Medical History PAST MEDICAL HISTORY Diagnosis Date - COPD (chronic obstructive pulmonary disease) (HCC) - Ex-smoker 10/19/2017 Started around 10-11 yo up to 1/2 PPD and quite 2008 - GERD (gastroesophageal reflux disease) - Headache(784.0) starting 47 years old - Hypothyroidism 06/11/2012 Previous Surgical History PAST SURGICAL HISTORY Procedure Laterality Date - CHOLECYSTECTOMY 07/17/2015 - COLONOSCOP W/ OR W/O [facility] SPEC 09/13/13 few diverticula, repeat 10 yrs - EGD W/O [facility] SPECIMEN W/BX 09/13/13 gastritis - FECAL OCCULT BLOOD TEST 07/16/2017 negative - HEMORRHOIDECTOMY 07/28/2017 - LIGATION OF HEMORRHOID(S) 05/05/2016 - PAST SURGICAL HISTORY OF - PAST SURGICAL HISTORY OF breast cyst, right? - REMOVAL OF TONSILS,<14 Y/O Tonsillectomy - [facility] N/CARPAL TUNNEL SURG 05/26/12 Carpal tunnel decomp-bilateral - TOOTH EXTRACTION ~2009 all teeth extracted - TOTAL ABDOM HYSTERECTOMY 1994 [place], ovaries? menorrhagia, benign Family History FAMILY HISTORY Problem Relation Age of Onset - Ischemic Heart Disease Father 68 [place] 72 - Prostate Cancer Father - Coronary Artery Disease Father early 50's - ischemic bowel disease [OTHER] Father ?diverticulosis - Alzheimer's Disease Maternal Grandmother - Lipids Mother - Thyroid Mother - Thyroid Sister Patient Allergies ALLERGIES Allergen Reactions - Laguna Swelling - Ciprofloxacin Other: See Comments Chest tightness - Dust Swelling - Gabapentin Swelling Throat swelling. - Insect Parts Swelling, Shortness of Breath, Myalgia Pt not sure what bit her but developed redness,difficulty swallowing and swelling of face and neck - Pollen Swelling - Morphine Vomiting Current Medications Current Outpatient Prescriptions on File Prior to Visit: baclofen (LIORESAL) 10 mg tablet Take 1 tablet by mouth twice daily. naproxen (NAPROSYN) 500 mg tablet Take 1 tablet by mouth twice daily as needed (for pain/inflammation). Take with food. cyclobenzaprine (FLEXERIL) 10 mg tablet Take 1 tablet by mouth every 8 hours as needed. levothyroxine (SYNTHROID) 50 mcg tablet Take 1 tablet by mouth once daily. Take on empty stomach. For thyroid. albuterol HFA (PROVENTIL HFA, VENTOLIN HFA) 90 mcg/actuation inhaler Inhale 2 Puffs as instructed every 6 hours as needed. pantoprazole DR (PROTONIX) 40 mg tablet Take 1 tablet by mouth daily before breakfast. Take on empty stomach, 1/2 hr before meal. ALBUTEROL INHALATION Inhale as instructed. SUMAtriptan (IMITREX) 100 mg tablet One table by mouth with onset of headache. Can repeat in and hour but only 2 tabs in 24 hrs. EPINEPHrine 0.3 mg/0.3 mL auto-injector Inject 0.3 mL intramuscularly as needed. No current facility-administered medications on file prior to visit. Social History Social History Marital status: Single Spouse name: Years of education: Number of children: 2 Occupational History Occupation Employer Comment [employer] Social History Main Topics Smoking status: Former Smoker Packs/day: 0.50 Years: 20.00 Types: Cigarettes Quit date: 05/18/2008 Smokeless tobacco: Never Used Alcohol use: No Drug use: No Sexual activity: Yes Partners with: Male control/protection: Surgical Social History Narrative from her since 1990 ( did not show twice for divorce). Review of Symptoms REVIEW OF SYSTEMS See HPI EXAM: BP 106/78 (BP Site: Right Arm, BP Position: Sitting, BP Cuff Size: Large Adult) Pulse 78 Resp 18 Wt 96.2 kg (212 lb) BMI 35.28 kg/m? Skin: Skin color, texture, turgor normal,. Has a small scratch on the inside of the upper anterior fold of the right ear. No infection Neck: Supple, no adenopathy; thyroid symmetric, normal size, no bruits. Lungs: Lungs clear to auscultation. No wheezing, rhonchi, rales. Heart: RRR without murmur, gallop, or rubs. No ectopy. Abdomen: Normal abdominal exam, Abdomen soft, non-tender. Bowel sounds normal. No masses, organomegaly. Extremities: No deformities, edema, skin discoloration Musculoskeletal: Muscular strength normal in the right lower ext and weaker at 3-4/5 on the left with positive radicular leg pain on the right. Peripheral Pulses: Normal. Neurologic: Gait normal. Sensation to light touch intact but diminished on the left.. Health Maintenance List MAMMOGRAM due on 06/11/2018 COLORECTAL CANCER SCREENING,SEE MODIFIER due on 09/13/2018 DIABETES SCREEN due on 01/04/2020 LIPID SCREEN due on 01/03/2022 DTAP,TDAP,TD(2 - Td) due on 07/27/2024 INFLUENZA Completed HEPATITIS C SCREENING Completed Data reviewed : MRI lumbar spine and CTA abd/pelvis A/P ASSESSMENT/PLAN: 1. Lung nodule - ICD9: 793.11, ICD10: R91.1 (primary diagnosis) 5 mm and with smoking Hx will recheck lung CT in 6 months - CT CHEST WO IVCON 2. Vascular abnormality - ICD9: 459.9, ICD10: I99.9 - CONSULT TO VASCULAR SURGERY: To evaluate bilateral vascular masses seen on MRI lumbar spine and abdominal/pelvic CTA. 3. Lumbago-sciatica due to displacement of lumbar intervertebral disc - ICD9: 722.10, ICD10: M51.27 Cont f/u with spine and pain management 4. Radiculopathy, lumbar region - ICD9: 724.4, ICD10: M54.16 - As above 5. Ex-smoker - ICD9: V15.82, ICD10: Z87.891 - See above Keep routine appt in December. Time with patient face to face was 25 min Hany Cota MD CNOV Observed: 10/19/2017 Status: COMPLETED Source: [place] 11:40 AM [facility] REPOSITORY Office Visit (FAMPWS) YUNIER PATIÑO ([id number]) 1960 F Date Time Provider Department 10/19/17 11:40 AM [facility] your visit today, we recorded the following information about you: Pulse Respiration Blood pressure Weight 78/minute 18/minute 106/78 96.2 kg Hany Cota MD 10/19/2017 12:31 PM Signed Chief Complaint Patient presents with: Recheck: PT, CT scan, Spinal specialist HPI Yunier Patiño is a 57 year old female who presents here today for f/u low back pain and results of CTA abd. Patient has been to spine and not feeling surgery is needed at this time and is seeing Dr. Lincoln. MRI does show a disc herniation at L4 with contact to the left nerve root. Patient does have radicular leg pain at times and weakness. Patient with walking with walker to prevent fall. Reviewed CTA and shows small 5 mm nodule in the right lower lob, a benign liver hemangioma and a vascular mass on the right and left suspected possible posterior pelvic varices. Past medical history, appointments, medications, allergies reviewed. Previous Medical History PAST MEDICAL HISTORY Diagnosis Date - COPD (chronic obstructive pulmonary disease) (HCC) - Ex-smoker 10/19/2017 Started around 10-11 yo up to 1/2 PPD and quite 2008 - GERD (gastroesophageal reflux disease) - Headache(784.0) starting 47 years old - Hypothyroidism 06/11/2012 Previous Surgical History PAST SURGICAL HISTORY Procedure Laterality Date - CHOLECYSTECTOMY 07/17/2015 - COLONOSCOP W/ OR W/O [facility] SPEC 09/13/13 few diverticula, repeat 10 yrs - EGD W/O [facility] SPECIMEN W/BX 09/13/13 gastritis - FECAL OCCULT BLOOD TEST 07/16/2017 negative - HEMORRHOIDECTOMY 07/28/2017 - LIGATION OF HEMORRHOID(S) 05/05/2016 - PAST SURGICAL HISTORY OF - PAST SURGICAL HISTORY OF breast cyst, right? - REMOVAL OF TONSILS,<14 Y/O Tonsillectomy - [facility] N/CARPAL TUNNEL SURG 05/26/12 Carpal tunnel decomp-bilateral - TOOTH EXTRACTION ~2009 all teeth extracted - TOTAL ABDOM HYSTERECTOMY 1994 [place], ovaries? menorrhagia, benign Family History FAMILY HISTORY Problem Relation Age of Onset - Ischemic Heart Disease Father 68 [place] 72 - Prostate Cancer Father - Coronary Artery Disease Father early 50's - ischemic bowel disease [OTHER] Father ?diverticulosis - Alzheimer's Disease Maternal Grandmother - Lipids Mother - Thyroid Mother - Thyroid Sister Patient Allergies ALLERGIES Allergen Reactions - Laguna Swelling - Ciprofloxacin Other: See Comments Chest tightness - Dust Swelling - Gabapentin Swelling Throat swelling. - Insect Parts Swelling, Shortness of Breath, Myalgia Pt not sure what bit her but developed redness,difficulty swallowing and swelling of face and neck - Pollen Swelling - Morphine Vomiting Current Medications Current Outpatient Prescriptions on File Prior to Visit: baclofen (LIORESAL) 10 mg tablet Take 1 tablet by mouth twice daily. naproxen (NAPROSYN) 500 mg tablet Take 1 tablet by mouth twice daily as needed (for pain/inflammation). Take with food. cyclobenzaprine (FLEXERIL) 10 mg tablet Take 1 tablet by mouth every 8 hours as needed. levothyroxine (SYNTHROID) 50 mcg tablet Take 1 tablet by mouth once daily. Take on empty stomach. For thyroid. albuterol HFA (PROVENTIL HFA, VENTOLIN HFA) 90 mcg/actuation inhaler Inhale 2 Puffs as instructed every 6 hours as needed. pantoprazole DR (PROTONIX) 40 mg tablet Take 1 tablet by mouth daily before breakfast. Take on empty stomach, 1/2 hr before meal. ALBUTEROL INHALATION Inhale as instructed. SUMAtriptan (IMITREX) 100 mg tablet One table by mouth with onset of headache. Can repeat in and hour but only 2 tabs in 24 hrs. EPINEPHrine 0.3 mg/0.3 mL auto-injector Inject 0.3 mL intramuscularly as needed. No current facility-administered medications on file prior to visit. Social History Social History Marital status: Single Spouse name: Years of education: Number of children: 2 Occupational History Occupation Employer Comment [employer] Social History Main Topics Smoking status: Former Smoker Packs/day: 0.50 Years: 20.00 Types: Cigarettes Quit date: 05/18/2008 Smokeless tobacco: Never Used Alcohol use: No Drug use: No Sexual activity: Yes Partners with: Male control/protection: Surgical Social History Narrative from her since 1990 ( did not show twice for divorce). Review of Symptoms REVIEW OF SYSTEMS See HPI EXAM: BP 106/78 (BP Site: Right Arm, BP Position: Sitting, BP Cuff Size: Large Adult) Pulse 78 Resp 18 Wt 96.2 kg (212 lb) BMI 35.28 kg/m? Skin: Skin color, texture, turgor normal,. Has a small scratch on the inside of the upper anterior fold of the right ear. No infection Neck: Supple, no adenopathy; thyroid symmetric, normal size, no bruits. Lungs: Lungs clear to auscultation. No wheezing, rhonchi, rales. Heart: RRR without murmur, gallop, or rubs. No ectopy. Abdomen: Normal abdominal exam, Abdomen soft, non-tender. Bowel sounds normal. No masses, organomegaly. Extremities: No deformities, edema, skin discoloration Musculoskeletal: Muscular strength normal in the right lower ext and weaker at 3-4/5 on the left with positive radicular leg pain on the right. Peripheral Pulses: Normal. Neurologic: Gait normal. Sensation to light touch intact but diminished on the left.. Health Maintenance List MAMMOGRAM due on 06/11/2018 COLORECTAL CANCER SCREENING,SEE MODIFIER due on 09/13/2018 DIABETES SCREEN due on 01/04/2020 LIPID SCREEN due on 01/03/2022 DTAP,TDAP,TD(2 - Td) due on 07/27/2024 INFLUENZA Completed HEPATITIS C SCREENING Completed Data reviewed : MRI lumbar spine and CTA abd/pelvis A/P ASSESSMENT/PLAN: 1. Lung nodule - ICD9: 793.11, ICD10: R91.1 (primary diagnosis) 5 mm and with smoking Hx will recheck lung CT in 6 months - CT CHEST WO IVCON 2. Vascular abnormality - ICD9: 459.9, ICD10: I99.9 - CONSULT TO VASCULAR SURGERY: To evaluate bilateral vascular masses seen on MRI lumbar spine and abdominal/pelvic CTA. 3. Lumbago-sciatica due to displacement of lumbar intervertebral disc - ICD9: 722.10, ICD10: M51.27 Cont f/u with spine and pain management 4. Radiculopathy, lumbar region - ICD9: 724.4, ICD10: M54.16 - As above 5. Ex-smoker - ICD9: V15.82, ICD10: Z87.891 - See above Keep routine appt in December. Time with patient face to face was 25 min Hany Cota MD Referring Provider: SELF [[id number]] Allergies As of Date: 10/19/2017 Noted Allergy Reaction LAGUNA 06/08/2012 7 - Swelling CIPROFLOXACIN 12/17/2015 14 - Other: See Comments Comments: Chest tightness DUST 06/08/2012 7 - Swelling GABAPENTIN 10/14/2017 7 - Swelling Comments: Throat swelling. INSECT PARTS 03/26/2016 7 - Swelling 12 - Shortness of Breath 17 - Myalgia Comments: Pt not sure what bit her but developed redness,difficulty swallowing and swelling of face and neck POLLEN 06/08/2012 7 - Swelling MORPHINE 06/08/2012 11 - Vomiting Date Reviewed: 10/19/2017 Reviewed by: Hany Cota - Fully Assessed Reason for Visit: Recheck [92] Cmt: PT, CT scan, Spinal specialist Primary Visit Diagnosis:Lung nodule [R91.1] Other Visit Diagnoses:Vascular abnormality [I99.9] Comment:pelvic region on CTA 09/2017 Lumbago-sciatica due to displacement of lumbar intervertebral disc [M51.27] Radiculopathy, lumbar region [M54.16] Ex-smoker [Z87.891] Order(s):albuterol HFA (PROVENTIL HFA, VENTOLIN HFA) 90 mcg/actuation inhalerInhale 2 Puffs as instructed every 6 hours as needed.Disp: 1 InhalerRfl: 0 EPINEPHrine (EPIPEN) 0.3 mg/0.3 mL auto-injectorInject 0.3 mL intramuscularly as needed.Disp: 2 EachRfl: 2 cyclobenzaprine (FLEXERIL) 10 mg tabletTake 1 tablet by mouth every 8 hours as needed.Disp: 8 tabletRfl: 0 CONSULT TO VASCULAR SURGERY [[id number]] Order #: [id number]: 1 CT CHEST WO IVCON [[id number]] Order #: [id number] FUTURE Prescriptions as of 10/19/2017 Sig: BACLOFEN 10 MG TABLET Take 1 tablet by mouth twice * NAPROXEN 500 MG TABLET Take 1 tablet by mouth twice * LEVOTHYROXINE 50 MCG TABLET Take 1 tablet by mouth once d* PANTOPRAZOLE 40 MG TABLET,DEL* Take 1 tablet by mouth daily * ALBUTEROL INHALATION Inhale as instructed. SUMATRIPTAN 100 MG TABLET One table by mouth with onset* ALBUTEROL SULFATE HFA 90 MCG/* Inhale 2 Puffs as instructed * EPINEPHRINE 0.3 MG/0.3 ML INJ* Inject 0.3 mL intramuscularly* CYCLOBENZAPRINE 10 MG TABLET Take 1 tablet by mouth every * Medication notes this encounter GABAPENTIN 300 MG CAPSULE >> Rose Ann 10/19/2017 11:21 AM >> ROSE ANN Mon Oct 19, 2017 11:21 AM Patient no longer taking had a reaction. >> Hany Cota MD 10/19/2017 11:33 AM throat swelling Problem List As Of Date 10/19/2017 Noted Resolved Migraine without aura and without status migrai* Priority: A More... More... Acquired hypothyroidism [E03.9] INVALID FOR* Priority: A More... More... Encounter for screening for diabetes mellitus [*INVALID FOR* Encounter for screening for cardiovascular diso*INVALID FOR* Encounter for gynecological examination without*INVALID FOR* Priority: E More... Chronic obstructive pulmonary disease (HCC) [J4*INVALID FOR* Priority: B More... Hemorrhoids, internal, with bleeding [K64.8] INVALID FOR* Priority: C Well adult exam [Z00.00] INVALID FOR* Priority: E More... More... Chronic bilateral low back pain with bilateral *INVALID FOR* Priority: M Radiculopathy, lumbar region [M54.16] INVALID FOR* Priority: M Lumbago-sciatica due to displacement of lumbar *INVALID FOR* Priority: M Ex-smoker [Z87.891] INVALID FOR* Priority: B More... Lung nodule [R91.1] INVALID FOR* Priority: B More... Prescriptions ordered this encounter Disp Refills Start End ALBUTEROL SULFATE HFA 90 MCG/ACTUATI* 1 In* 0 10/19/2017 Route: INHALATION Sig: Inhale 2 Puffs as instructed every 6 hours as needed. EPINEPHRINE 0.3 MG/0.3 ML INJECTION,* 2 Ea* 2 10/19/2017 Route: INTRAMUSCULA Sig: Inject 0.3 mL intramuscularly as needed. CYCLOBENZAPRINE 10 MG TABLET 8 ta* 0 10/19/2017 Route: ORAL Sig: Take 1 tablet by mouth every 8 hours as needed. Medications Discontinued During This Encounter ketorolac (TORADOL) 10 mg tablet 20 t* 0 10/14/2017 10/19/2017 Route: ORAL Sig: Take 1 tablet by mouth every 6 hours as needed for up to 5 days. Disc: Course of therapy completed gabapentin (NEURONTIN) 300 mg capsule 90 c* 1 10/13/2017 10/19/2017 Class: Print RX Route: ORAL Sig: Take 1 capsule by mouth three times daily for 90 days. Take 1 capsule by mouth. Take one pill daily for 3 days. Take one pill BID for three days then increase to one pill TID. Disc: Adverse Reaction albuterol HFA (PROVENTIL HFA, VENTOL* 1 In* 0 07/16/2017 10/19/2017 Route: INHALATION Sig: Inhale 2 Puffs as instructed every 6 hours as needed. Disc: Reason for discontinue is not on file. EPINEPHrine 0.3 mg/0.3 mL auto-injec* 2 Ea* 2 03/26/2016 10/19/2017 Class: Print RX Route: INTRAMUSCULAR Sig: Inject 0.3 mL intramuscularly as needed. Disc: Reason for discontinue is not on file. cyclobenzaprine (FLEXERIL) 10 mg tab* 8 ta* 0 09/08/2017 10/19/2017 Class: Print RX Route: ORAL Sig: Take 1 tablet by mouth every 8 hours as needed. Disc: Reason for discontinue is not on file. Disposition: Return if symptoms worsen or fail to improve. Follow-up and Disposition History Recorded Encounter Status:Closed by HANY COTA on 10/19/17 PROGRESS Observed: 10/19/2017 Status: COMPLETED Source: [place] 8:47 AM [facility] [place] REPOSITORY HNO ID: [id number] Author: Elizabeth (Pt) Sergo Service: (none) Author Type: Physical Therapist Type: Progress Notes Filed: 10/19/2017 8:52 AM Note Text: Episode Visit Count: 2 Therapist That Will Oversee The Plan Of Care: Elizabeth Trotter Start of Care Date: 10/08/17 Onset Date: 09/07/17 REHABILITATION AND SPORTS THERAPY PHYSICAL THERAPY TREATMENT NOTE ASSESSMENT: Yunier Patiño demonstrated difficulty with all exs. Did increase some reps. Added some additional core stabilization Pt noted increased pain in back but no change of left leg sx. Antalgic transfers and gait with wheeled walker. Pt has injection scheduled for the 29 of October. The patient will continue to benefit from continued skilled physical therapy for progression of core exs and assessment of directional preference as tolerated. PLAN FOR NEXT VISIT: advance exs, maybe trial of prone lying? . Pt to schedule next visit after injection complete, hope to have better tolerance to therapy activities at that time SUBJECTIVE: Pt notes that she is doing a little better. States less pain, still pain and fell the other day left knee buckled and landed on left knee with scrape but no other injury Pain Score: 4/10 Pain Location: Low Back/Lumbar Spine - Left;Low Back/Lumbar Spine - Right Description: Aching Frequency: Continuous Post Treatment Pain Score: 6/10 Pain Location: Low Back/Lumbar Spine - Right Post Treatment Pain Description: Aching OBJECTIVE MEASURES WITH LEVEL OF FUNCTION: Posture / Alignment Posture: ( moere upright seated posture) Gait Assessment Gait Deviations Left Lower Extremity: ( still slides/ drags left LE , slightly improved) TREATMENT: Therapeutic Exercise: 1: seated yellow scapular retraction 2x10 2: dynamic stabilizatition with perturbation front and very light to sides 2x10 3: heel slides seated 1x10 B 4: hip flexion 1x10 5: LAQ 2x10 6: ankle DF 1x10 7: trial of shld extension with yellow rep band 1x5 wtih pain so discontinued 8: TA with alternate arm lifts 1x10 9: TA with bent knee fall outs 1x10 10: scifit stepper seat 10 1 min d/t pain 11: seated yellow rep band trunk extension 2x10 Skilled Intervention: Patient was educated in proper exercise technique and purpose for exercises. Skilled judgment was provided in selection of appropriate interventions. Correct performance of therapeutic exercises was facilitated with verbal and visual cuing. Assigned Home Exercise Program: 1: increase reps of exs to 2x10 Billing: [facility]: Therapeutic Exercise ([id number]): 1:1 time: 30 minutes (2 units: 23-37 mins) Total time: 30 minutes Elizabeth Trotter PT CNTHERAPY Observed: 10/19/2017 Status: COMPLETED Source: [place] 8:00 AM [facility] REPOSITORY OT/PT/Speech Visit (PTWS) YUNIER PATIÑO ([id number]) 1960 F Date Time Provider Department 10/19/17 8:00 AM ELIZABETH TROTTER (PT) PTWS Date Time Provider Department [place] 10/19/2017 8:00 AM [id number], LISA (PT) PTWS [facility] ALIYAH Reason for Visit: Physical Therapy [503] PT Discharge [752] Reason For Visit History Recorded Primary Visit Diagnosis:Chronic bilateral low back pain with bilateral sciatica [M54.42, M54.41, G89.29] Allergies As of Date: 10/19/2017 Noted Allergy Reaction LAGUNA 06/08/2012 7 - Swelling CIPROFLOXACIN 12/17/2015 14 - Other: See Comments Comments: Chest tightness DUST 06/08/2012 7 - Swelling GABAPENTIN 10/14/2017 7 - Swelling Comments: Throat swelling. INSECT PARTS 03/26/2016 7 - Swelling 12 - Shortness of Breath 17 - Myalgia Comments: Pt not sure what bit her but developed redness,difficulty swallowing and swelling of face and neck POLLEN 06/08/2012 7 - Swelling MORPHINE 06/08/2012 11 - Vomiting Date Reviewed: 10/19/2017 Reviewed by: Hany Cota - Fully Assessed Prescriptions as of 10/19/2017 Sig: BACLOFEN 10 MG TABLET Take 1 tablet by mouth twice * X KETOROLAC 10 MG TABLET Take 1 tablet by mouth every * X GABAPENTIN 300 MG CAPSULE Take 1 capsule by mouth three* NAPROXEN 500 MG TABLET Take 1 tablet by mouth twice * X CYCLOBENZAPRINE 10 MG TABLET Take 1 tablet by mouth every * PANTOPRAZOLE 40 MG TABLET,DEL* Take 1 tablet by mouth daily * X LEVOTHYROXINE 50 MCG TABLET Take 1 tablet by mouth once d* X ALBUTEROL SULFATE HFA 90 MCG/* Inhale 2 Puffs as instructed * X ALBUTEROL INHALATION Inhale as instructed. SUMATRIPTAN 100 MG TABLET One table by mouth with onset* X EPINEPHRINE 0.3 MG/0.3 ML INJ* Inject 0.3 mL intramuscularly* Progress Notes: Elizabeth Trotter, PT 10/19/2017 8:52 AM Signed Episode Visit Count: 2 Therapist That Will Oversee The Plan Of Care: Elizabeth Trotter Start of Care Date: 10/08/17 Onset Date: 09/07/17 REHABILITATION AND SPORTS THERAPY PHYSICAL THERAPY TREATMENT NOTE ASSESSMENT: Yunier Patiño demonstrated difficulty with all exs. Did increase some reps. Added some additional core stabilization Pt noted increased pain in back but no change of left leg sx. Antalgic transfers and gait with wheeled walker. Pt has injection scheduled for the 29 of October. The patient will continue to benefit from continued skilled physical therapy for progression of core exs and assessment of directional preference as tolerated. PLAN FOR NEXT VISIT: advance exs, maybe trial of prone lying? . Pt to schedule next visit after injection complete, hope to have better tolerance to therapy activities at that time SUBJECTIVE: Pt notes that she is doing a little better. States less pain, still pain and fell the other day left knee buckled and landed on left knee with scrape but no other injury Pain Score: 4/10 Pain Location: Low Back/Lumbar Spine - Left;Low Back/Lumbar Spine - Right Description: Aching Frequency: Continuous Post Treatment Pain Score: 6/10 Pain Location: Low Back/Lumbar Spine - Right Post Treatment Pain Description: Aching OBJECTIVE MEASURES WITH LEVEL OF FUNCTION: Posture / Alignment Posture: ( moere upright seated posture) Gait Assessment Gait Deviations Left Lower Extremity: ( still slides/ drags left LE , slightly improved) TREATMENT: Therapeutic Exercise: 1: seated yellow scapular retraction 2x10 2: dynamic stabilizatition with perturbation front and very light to sides 2x10 3: heel slides seated 1x10 B 4: hip flexion 1x10 5: LAQ 2x10 6: ankle DF 1x10 7: trial of shld extension with yellow rep band 1x5 wtih pain so discontinued 8: TA with alternate arm lifts 1x10 9: TA with bent knee fall outs 1x10 10: scifit stepper seat 10 1 min d/t pain 11: seated yellow rep band trunk extension 2x10 Skilled Intervention: Patient was educated in proper exercise technique and purpose for exercises. Skilled judgment was provided in selection of appropriate interventions. Correct performance of therapeutic exercises was facilitated with verbal and visual cuing. Assigned Home Exercise Program: 1: increase reps of exs to 2x10 Billing: [facility]: Therapeutic Exercise ([id number]): 1:1 time: 30 minutes (2 units: 23-37 mins) Total time: 30 minutes RASHAWN Pinzon PT 01/13/2018 1:15 PM Signed [facility] REHABILITATION AND SPORTS THERAPY PHYSICAL THERAPY DISCONTINUANCE OF CARE Plan of Care Period: Start of Care Date: 10/08/17 Last Visit Date: 10/19/2017 Therapy Program: Patient did not return for follow up care as planned. Please refer to last visit note for interventions provided for this episode of care. Assessment: Unable to formally assess goal achievement . Reason for Discontinuation of Care: Patient has not returned to therapy or scheduled additional follow-up appointments. Elizabeth Trotter PT PATRICIA Observed: 10/16/2017 Status: COMPLETED Source: [place] 9:15 AM [facility] REPOSITORY Office Visit (PODIMM) HAROONYUNIER Ayde ([id number]) 1960 F Date Time Provider Department 10/16/17 9:15 AM SARITA PRETTY During your visit today, we recorded the following information about you: Sandra Hall Oscar 10/16/2017 9:09 AM Signed Patient presents with: Toe Pain (Toe) Sarita Pretty DPM 10/16/2017 9:40 AM Signed You have a gaston's neuroma: This is an inflammation of the nerve that runs between your metatarsal heads. Instructions for Adhesive felt Metatarsal pads: Apply met pads behind the ball of the foot to offload pressure to the painful area. You can apply the pad to the bottom of the Insoles if getting pain relief 1/4 inch adhesive felt Met pads available from [facility] Contact information for [facility] [email or web address] Call Fax Shoes recommended include Marcy Torres Merrell, Clarks, ANNALEE. For your specific condition I recommend you get shoes with a wider toe box. Additionally, it would be important to get a shoe with a LYCRA upper or a MESH upper. If you are getting over the counter or custom insoles always purchase these first. Then look for a shoe where you can remove the insole and place the new insoles inside. Always buy shoes later in the day to accommodate for swelling that may occur during the day. Make sure that your shoe is stable when you try to bend it from side to side and from front to back. You should not be able to take your shoe and bend it in half in any direction. Avoid shoes with a heel. Avoid shoes with a tight forefoot. The best place to get shoes would be somewhere where they will measure your feet such as [employer] in [place] [place] or [place] or [employer] in [place]. [employer]'s shoe store in [place] or [employer] in [place]. Other things that may be helpful include: Injinji 5 toed socks and well jaleel slip on sandles. Pressure relief insoles can also be beneficial for this condition. These can be obtained online at the [employer] website or also at [employer]. They can also be found at [employer] or [employer]. This insole will conform to the shape of your foot and take off pressure in areas that are painful. They should run about 30-40$. Take out the insole that is currently in your shoe and replace with this one. Sarita Pretty DPM 10/20/2017 6:07 AM Signed FOLLOW UP PATIENT VISIT Yunier Patiño is as 57 year old patient who presents with N/T to her R forefoot which is NEW COMPLAINT TODAY. Toe is stingling all over the toe. Pain 10/10 when she gets its. Unable to stand/walk. Lasts about 15-20 min at time. Has been happening since Apr 2017. Getting worse. Does have multiple back issues right now including spinal stenosis, bulging discs as well and is using a walker to get around not sure if its related to this or not. She is sheduled with Dr. Lincoln for injections to help with the pain. Does have sciatic symptoms on the opposite side. PAIN EVALUATION 10/16/2017 Pain Score: 10 Pain Location: Toe Description: - Stinging Duration Amount of Time: 6 Duration Units: Months Intervention: Relaxation PCP:Hany Cota MD PAST MEDICAL HISTORY Diagnosis Date - COPD (chronic obstructive pulmonary disease) (HCC) - Ex-smoker 10/19/2017 Started around 10-11 yo up to 1/2 PPD and quite 2008 - GERD (gastroesophageal reflux disease) - Headache(784.0) starting 47 years old - Hypothyroidism 06/11/2012 Current Outpatient Prescriptions: albuterol HFA (PROVENTIL HFA, VENTOLIN HFA) 90 mcg/actuation inhaler Inhale 2 Puffs as instructed every 6 hours as needed. EPINEPHrine (EPIPEN) 0.3 mg/0.3 mL auto-injector Inject 0.3 mL intramuscularly as needed. cyclobenzaprine (FLEXERIL) 10 mg tablet Take 1 tablet by mouth every 8 hours as needed. baclofen (LIORESAL) 10 mg tablet Take 1 tablet by mouth twice daily. naproxen (NAPROSYN) 500 mg tablet Take 1 tablet by mouth twice daily as needed (for pain/inflammation). Take with food. levothyroxine (SYNTHROID) 50 mcg tablet Take 1 tablet by mouth once daily. Take on empty stomach. For thyroid. pantoprazole DR (PROTONIX) 40 mg tablet Take 1 tablet by mouth daily before breakfast. Take on empty stomach, 1/2 hr before meal. ALBUTEROL INHALATION Inhale as instructed. SUMAtriptan (IMITREX) 100 mg tablet One table by mouth with onset of headache. Can repeat in and hour but only 2 tabs in 24 hrs. No current facility-administered medications for this visit. ALLERGIES Allergen Reactions - Laguna Swelling - Ciprofloxacin Other: See Comments Chest tightness - Dust Swelling - Gabapentin Swelling Throat swelling. - Insect Parts Swelling, Shortness of Breath, Myalgia Pt not sure what bit her but developed redness,difficulty swallowing and swelling of face and neck - Pollen Swelling - Morphine Vomiting OBJECTIVE: Constitutional: Pt is a well developed 57 year old female who is alert, oriented, cooperative and in no apparent distress. Eyes: Following during examination. No redness or drainage. Respiratory: RR normal and nonlabored. Even breathing. No evidence of distress. Psychology: Patient is engaged during conversation. Normal affect and mood. Does not appear depressed or anxious. Vascular: palpable Dorsalis Pedis and Posterior Tibial Pulses B/L Capillary Fill time < 3 seconds to digits 1-5 B/L skin temperature warm to warm tibial tuberosity to the digits B/L Neurological: Intact epicritic sensation b/l Dermatological: Skin appears well hydrated and supple. Nails are not ingrown today. NO proudflesh noted at the nail border. No drainage, malodor or calor is noted. No cellulitis or lymphangitis is noted. MS: +pain IMS R 3rd. +pain with medial to lateral compression of the foot. +Jhony's click. Radiographs: defer A: Neuroma/bursa likely R 3rd IMS-new complaint PLAN: History and physical examination Pressure relief insoles Met pad instruction today. Dispensed met pads. Already on anti-inflammatory RTC if not improving. Sarita Pretty DPM Referring Provider: SARITA PRETTY [[id number]] Allergies As of Date: 10/16/2017 Noted Allergy Reaction LAGUNA 06/08/2012 7 - Swelling CIPROFLOXACIN 12/17/2015 14 - Other: See Comments Comments: Chest tightness DUST 06/08/2012 7 - Swelling GABAPENTIN 10/14/2017 7 - Swelling Comments: Throat swelling. 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] Other Visit Diagnosis:Numbness of right foot [R20.0] Prescriptions as of 10/16/2017 Sig: BACLOFEN 10 MG TABLET Take 1 tablet by mouth twice * X KETOROLAC 10 MG TABLET Take 1 tablet by mouth every * X GABAPENTIN 300 MG CAPSULE Take 1 capsule by mouth three* NAPROXEN 500 MG TABLET Take 1 tablet by mouth twice * X CYCLOBENZAPRINE 10 MG TABLET Take 1 tablet by mouth every * LEVOTHYROXINE 50 MCG TABLET Take 1 tablet by mouth once d* PANTOPRAZOLE 40 MG TABLET,DEL* Take 1 tablet by mouth daily * X ALBUTEROL SULFATE HFA 90 MCG/* Inhale 2 Puffs as instructed * ALBUTEROL INHALATION Inhale as instructed. SUMATRIPTAN 100 MG TABLET One table by mouth with onset* X EPINEPHRINE 0.3 MG/0.3 ML INJ* Inject 0.3 mL intramuscularly* Problem List As Of Date 10/16/2017 Noted Resolved Migraine without aura and without status migrai* Priority: A More... More... Acquired hypothyroidism [E03.9] INVALID FOR* Priority: A More... More... Encounter for screening for diabetes mellitus [*INVALID FOR* Encounter for screening for cardiovascular diso*INVALID FOR* Encounter for gynecological examination without*INVALID FOR* Priority: E More... Chronic obstructive pulmonary disease (HCC) [J4*INVALID FOR* Priority: B More... Hemorrhoids, internal, with bleeding [K64.8] INVALID FOR* Priority: C Well adult exam [Z00.00] INVALID FOR* Priority: E More... Prolapsed internal hemorrhoids [K64.8] INVALID FOR* More... Chronic bilateral low back pain with bilateral *INVALID FOR* Radiculopathy, lumbar region [M54.16] INVALID FOR* Lumbago-sciatica due to displacement of lumbar *INVALID FOR* Other instructions from your clinician: You have a gaston's neuroma: This is an inflammation of the nerve that runs between your metatarsal heads. Instructions for Adhesive felt Metatarsal pads: Apply met pads behind the ball of the foot to offload pressure to the painful area. You can apply the pad to the bottom of the Insoles if getting pain relief 1/4 inch adhesive felt Met pads available from [facility] Contact information for [facility] [email or web address] Call Fax Shoes recommended include Melissa, Marcy, Nahun, Akash, ANNALEE. For your specific condition I recommend you get shoes with a wider toe box. Additionally, it would be important to get a shoe with a LYCRA upper or a MESH upper. If you are getting over the counter or custom insoles always purchase these first. Then look for a shoe where you can remove the insole and place the new insoles inside. Always buy shoes later in the day to accommodate for swelling that may occur during the day. Make sure that your shoe is stable when you try to bend it from side to side and from front to back. You should not be able to take your shoe and bend it in half in any direction. Avoid shoes with a heel. Avoid shoes with a tight forefoot. The best place to get shoes would be somewhere where they will measure your feet such as [employer] in [facility] [place] or [place] or [employer] in [place]. [employer]'s shoe store in [place] or [employer] in [place]. Other things that may be helpful include: Injinji 5 toed socks and well jaleel slip on sandles. Pressure relief insoles can also be beneficial for this condition. These can be obtained online at the [employer] website or also at [employer]. They can also be found at [employer] or [employer]. This insole will conform to the shape of your foot and take off pressure in areas that are painful. They should run about 30-40$. Take out the insole that is currently in your shoe and replace with this one. Visit Notes: >> Sandra Hall Ma ThuOct 16, 2017 9:09 AM Status: Signed Patient presents with: Toe Pain (Toe) Encounter Status:Closed by SARITA PRETTY DPM on 10/20/17 HOSP Observed: 10/15/2017 Status: COMPLETED Source: [place] 12:00 AM CLINIC OTHER CAMPUS REPOSITORY Patient:Yunier Patiño MRN: <[id number]> Height:5' 5(1.651 m) Weight:212 lb (96.163 kg) Outpatient Medications as of 10/29/17: ketorolac tromethamine (TORADOL ORAL) cholecalciferol, Vitamin D3, (VITAMIN D3) 50,000 unit cap capsule albuterol HFA (PROVENTIL HFA, VENTOLIN HFA) 90 mcg/actuation inhaler EPINEPHrine (EPIPEN) 0.3 mg/0.3 mL auto-injector cyclobenzaprine (FLEXERIL) 10 mg tablet baclofen (LIORESAL) 10 mg tablet naproxen (NAPROSYN) 500 mg tablet levothyroxine (SYNTHROID) [address] (PROTONIX) 40 mg tablet SUMAtriptan (IMITREX) 100 mg tablet Admission/Clinic Administered Medications as of 10/29/17: NaCl 0.9% iv infusion Problem List: Migraine without aura and without status migrainosus, not intractable [G43.009] Acquired hypothyroidism [E03.9] Encounter for screening for diabetes mellitus [Z13.1] Encounter for screening for cardiovascular disorders [Z13.6] Encounter for gynecological examination without abnormal finding [Z01.419] Chronic obstructive pulmonary disease (HCC) [J44.9] Hemorrhoids, internal, with bleeding [K64.8] Well adult exam [Z00.00] Chronic bilateral low back pain with bilateral sciatica [M54.42, M54.41, G89.29] Radiculopathy, lumbar region [M54.16] Lumbago-sciatica due to displacement of lumbar intervertebral disc [M51.27] Ex-smoker [Z87.891] Lung nodule [R91.1] Allergies: Laguna Ciprofloxacin Dust Gabapentin Insect Parts Pollen Morphine Date Verified: 10/29/17 Lab Values Lab Value Units Date High Low POTA* 4.0 mmol/L 10/20/2017 5.1 3.7 Progress Notes (PT [facility]): Elizabeth Trotter, PT 10/19/2017 8:52 AM Signed Episode Visit Count: 2 Therapist That Will Oversee The Plan Of Care: Elizabeth Trotter Start of Care Date: 10/08/17 Onset Date: 09/07/17 REHABILITATION AND SPORTS THERAPY PHYSICAL THERAPY TREATMENT NOTE ASSESSMENT: Yunier Patiño demonstrated difficulty with all exs. Did increase some reps. Added some additional core stabilization Pt noted increased pain in back but no change of left leg sx. Antalgic transfers and gait with wheeled walker. Pt has injection scheduled for the 29 of October. The patient will continue to benefit from continued skilled physical therapy for progression of core exs and assessment of directional preference as tolerated. PLAN FOR NEXT VISIT: advance exs, maybe trial of prone lying? . Pt to schedule next visit after injection complete, hope to have better tolerance to therapy activities at that time SUBJECTIVE: Pt notes that she is doing a little better. States less pain, still pain and fell the other day left knee buckled and landed on left knee with scrape but no other injury Pain Score: 4/10 Pain Location: Low Back/Lumbar Spine - Left;Low Back/Lumbar Spine - Right Description: Aching Frequency: Continuous Post Treatment Pain Score: 6/10 Pain Location: Low Back/Lumbar Spine - Right Post Treatment Pain Description: Aching OBJECTIVE MEASURES WITH LEVEL OF FUNCTION: Posture / Alignment Posture: ( moere upright seated posture) Gait Assessment Gait Deviations Left Lower Extremity: ( still slides/ drags left LE , slightly improved) TREATMENT: Therapeutic Exercise: 1: seated yellow scapular retraction 2x10 2: dynamic stabilizatition with perturbation front and very light to sides 2x10 3: heel slides seated 1x10 B 4: hip flexion 1x10 5: LAQ 2x10 6: ankle DF 1x10 7: trial of shld extension with yellow rep band 1x5 wtih pain so discontinued 8: TA with alternate arm lifts 1x10 9: TA with bent knee fall outs 1x10 10: scifit stepper seat 10 1 min d/t pain 11: seated yellow rep band trunk extension 2x10 Skilled Intervention: Patient was educated in proper exercise technique and purpose for exercises. Skilled judgment was provided in selection of appropriate interventions. Correct performance of therapeutic exercises was facilitated with verbal and visual cuing. Assigned Home Exercise Program: 1: increase reps of exs to 2x10 Billing: [facility]: Therapeutic Exercise ([id number]): 1:1 time: 30 minutes (2 units: 23-37 mins) Total time: 30 minutes Elizabeth Trotter, PT Progress Notes ([facility]): Hany Cota MD 10/19/2017 12:31 PM Signed Chief Complaint Patient presents with: Recheck: PT, CT scan, Spinal specialist HPI Yunier Patiño is a 57 year old female who presents here today for f/u low back pain and results of CTA abd. Patient has been to spine and not feeling surgery is needed at this time and is seeing Dr. Lincoln. MRI does show a disc herniation at L4 with contact to the left nerve root. Patient does have radicular leg pain at times and weakness. Patient with walking with walker to prevent fall. Reviewed CTA and shows small 5 mm nodule in the right lower lob, a benign liver hemangioma and a vascular mass on the right and left suspected possible posterior pelvic varices. Past medical history, appointments, medications, allergies reviewed. Previous Medical History PAST MEDICAL HISTORY Diagnosis Date - COPD (chronic obstructive pulmonary disease) (HCC) - Ex-smoker 10/19/2017 Started around 10-11 yo up to 1/2 PPD and quite 2008 - GERD (gastroesophageal reflux disease) - Headache(784.0) starting 47 years old - Hypothyroidism 06/11/2012 Previous Surgical History PAST SURGICAL HISTORY Procedure Laterality Date - CHOLECYSTECTOMY 07/17/2015 - COLONOSCOP W/ OR W/O [facility] SPEC 09/13/13 few diverticula, repeat 10 yrs - EGD W/O [facility] SPECIMEN W/BX 09/13/13 gastritis - FECAL OCCULT BLOOD TEST 07/16/2017 negative - HEMORRHOIDECTOMY 07/28/2017 - LIGATION OF HEMORRHOID(S) 05/05/2016 - PAST SURGICAL HISTORY OF - PAST SURGICAL HISTORY OF breast cyst, right? - REMOVAL OF TONSILS,<14 Y/O Tonsillectomy - RE[facility]ISE MEDIAN N/CARPAL TUNNEL SURG 05/26/12 Carpal tunnel decomp-bilateral - TOOTH EXTRACTION ~2009 all teeth extracted - TOTAL ABDOM HYSTERECTOMY 1994 [place], ovaries? menorrhagia, benign Family History FAMILY HISTORY Problem Relation Age of Onset - Ischemic Heart Disease Father 68 [place] 72 - Prostate Cancer Father - Coronary Artery Disease Father early 50's - ischemic bowel disease [OTHER] Father ?diverticulosis - Alzheimer's Disease Maternal Grandmother - Lipids Mother - Thyroid Mother - Thyroid Sister Patient Allergies ALLERGIES Allergen Reactions - Laguna Swelling - Ciprofloxacin Other: See Comments Chest tightness - Dust Swelling - Gabapentin Swelling Throat swelling. - Insect Parts Swelling, Shortness of Breath, Myalgia Pt not sure what bit her but developed redness,difficulty swallowing and swelling of face and neck - Pollen Swelling - Morphine Vomiting Current Medications Current Outpatient Prescriptions on File Prior to Visit: baclofen (LIORESAL) 10 mg tablet Take 1 tablet by mouth twice daily. naproxen (NAPROSYN) 500 mg tablet Take 1 tablet by mouth twice daily as needed (for pain/inflammation). Take with food. cyclobenzaprine (FLEXERIL) 10 mg tablet Take 1 tablet by mouth every 8 hours as needed. levothyroxine (SYNTHROID) 50 mcg tablet Take 1 tablet by mouth once daily. Take on empty stomach. For thyroid. albuterol HFA (PROVENTIL HFA, VENTOLIN HFA) 90 mcg/actuation inhaler Inhale 2 Puffs as instructed every 6 hours as needed. pantoprazole DR (PROTONIX) 40 mg tablet Take 1 tablet by mouth daily before breakfast. Take on empty stomach, 1/2 hr before meal. ALBUTEROL INHALATION Inhale as instructed. SUMAtriptan (IMITREX) 100 mg tablet One table by mouth with onset of headache. Can repeat in and hour but only 2 tabs in 24 hrs. EPINEPHrine 0.3 mg/0.3 mL auto-injector Inject 0.3 mL intramuscularly as needed. No current facility-administered medications on file prior to visit. Social History Social History Marital status: Single Spouse name: Years of education: Number of children: 2 Occupational History Occupation Employer [employer] Social History Main Topics Smoking status: Former Smoker Packs/day: 0.50 Years: 20.00 Types: Cigarettes Quit date: 05/18/2008 Smokeless tobacco: Never Used Alcohol use: No Drug use: No Sexual activity: Yes Partners with: Male control/protection: Surgical Social History Narrative from her since 1990 ( did not show twice for divorce). Review of Symptoms REVIEW OF SYSTEMS See HPI EXAM: BP 106/78 (BP Site: Right Arm, BP Position: Sitting, BP Cuff Size: Large Adult) Pulse 78 Resp 18 Wt 96.2 kg (212 lb) BMI 35.28 kg/m? Skin: Skin color, texture, turgor normal,. Has a small scratch on the inside of the upper anterior fold of the right ear. No infection Neck: Supple, no adenopathy; thyroid symmetric, normal size, no bruits. Lungs: Lungs clear to auscultation. No wheezing, rhonchi, rales. Heart: RRR without murmur, gallop, or rubs. No ectopy. Abdomen: Normal abdominal exam, Abdomen soft, non-tender. Bowel sounds normal. No masses, organomegaly. Extremities: No deformities, edema, skin discoloration Musculoskeletal: Muscular strength normal in the right lower ext and weaker at 3-4/5 on the left with positive radicular leg pain on the right. Peripheral Pulses: Normal. Neurologic: Gait normal. Sensation to light touch intact but diminished on the left.. Health Maintenance List MAMMOGRAM due on 06/11/2018 COLORECTAL CANCER SCREENING,SEE MODIFIER due on 09/13/2018 DIABETES SCREEN due on 01/04/2020 LIPID SCREEN due on 01/03/2022 DTAP,TDAP,TD(2 - Td) due on 07/27/2024 INFLUENZA Completed HEPATITIS C SCREENING Completed Data reviewed : MRI lumbar spine and CTA abd/pelvis A/P ASSESSMENT/PLAN: 1. Lung nodule - ICD9: 793.11, ICD10: R91.1 (primary diagnosis) 5 mm and with smoking Hx will recheck lung CT in 6 months - CT CHEST WO IVCON 2. Vascular abnormality - ICD9: 459.9, ICD10: I99.9 - CONSULT TO VASCULAR SURGERY: To evaluate bilateral vascular masses seen on MRI lumbar spine and abdominal/pelvic CTA. 3. Lumbago-sciatica due to displacement of lumbar intervertebral disc - ICD9: 722.10, ICD10: M51.27 Cont f/u with spine and pain management 4. Radiculopathy, lumbar region - ICD9: 724.4, ICD10: M54.16 - As above 5. Ex-smoker - ICD9: V15.82, ICD10: Z87.891 - See above Keep routine appt in December. Time with patient face to face was 25 min Hany Cota MD PROGRESS Observed: 10/14/2017 Status: COMPLETED Source: [place] 10:53 AM [facility] REPOSITORY HNO ID: [id number] Author: Perico Lincoln Service: (none) Author Type: Physician Type: Progress Notes Filed: 10/14/2017 1:59 PM Note Text: [facility] [place] Pain Management Department Date: October 14, 2017 - 11:07 AM Yunier Patiño is seen in consultation requested by Dr. Elsa Hamilton ([facility]) Abdulaziz for an opinion regarding chronic lower back pain. My final recommendations will be communicated back to the requesting physician by way of shared medical record or via US mail. Chief Complaint: lower back pain SUBJECTIVE: Yunier Patiño, is a 57 year old year old who presents with lower back pain. The pain started 2 months ago, following with no precipitating event. and is persistent. Her pain is located in the bilateral lumbar region and radiates down the anterior leg. The pain is described as burning, numbness and tingling. The pain intensity is rated 8. The pain is exacerbated by activity, standing and walking and relieved by no known factors. Symptoms interfere with physical activity, walking and social activities. Obtained by Alivia Chapman Ma by interview and using data analytics developer from patient completed questionnaire I have reviewed, confirmed and edited the preliminary information with the patient: yes. In addition the patient reports no additional concerns. Litigation: No. Prior pain treatment has included physical therapy with no relief, Dates: currently attending, medications - muscle relaxants, NSAIDs and opioids with minimal relief and manipulation therapy Chiropractic with no relief. She had relief from the following interventions: None. ALLERGIES Allergen Reactions - Laguna Swelling - Ciprofloxacin Other: See Comments Chest tightness - Dust Swelling - Gabapentin Swelling Throat swelling. - Insect Parts Swelling, Shortness of Breath, Myalgia Pt not sure what bit her but developed redness,difficulty swallowing and swelling of face and neck - Morphine Vomiting - Pollen Swelling Current Medications: Pain medications reviewed and reconciled in the medication list: Yes. Current Outpatient Prescriptions: gabapentin (NEURONTIN) 300 mg capsule Take 1 capsule by mouth three times daily for 90 days. Take 1 capsule by mouth. Take one pill daily for 3 days. Take one pill BID for three days then increase to one pill TID. naproxen (NAPROSYN) 500 mg tablet Take 1 tablet by mouth twice daily as needed (for pain/inflammation). Take with food. cyclobenzaprine (FLEXERIL) 10 mg tablet Take 1 tablet by mouth every 8 hours as needed. levothyroxine (SYNTHROID) 50 mcg tablet Take 1 tablet by mouth once daily. Take on empty stomach. For thyroid. albuterol HFA (PROVENTIL HFA, VENTOLIN HFA) 90 mcg/actuation inhaler Inhale 2 Puffs as instructed every 6 hours as needed. pantoprazole DR (PROTONIX) 40 mg tablet Take 1 tablet by mouth daily before breakfast. Take on empty stomach, 1/2 hr before meal. ALBUTEROL INHALATION Inhale as instructed. SUMAtriptan (IMITREX) 100 mg tablet One table by mouth with onset of headache. Can repeat in and hour but only 2 tabs in 24 hrs. EPINEPHrine 0.3 mg/0.3 mL auto-injector Inject 0.3 mL intramuscularly as needed. ketorolac (TORADOL) 10 mg tablet Take 1 tablet by mouth every 6 hours as needed for up to 5 days. baclofen (LIORESAL) 10 mg tablet Take 1 tablet by mouth twice daily. No current facility-administered medications for this visit. PAST MEDICAL HISTORY Diagnosis Date - COPD (chronic obstructive pulmonary disease) (HCC) - GERD (gastroesophageal reflux disease) - Headache(784.0) starting 47 years old - Hypothyroidism 06/11/2012 PAST SURGICAL HISTORY Procedure Laterality Date - CHOLECYSTECTOMY 07/17/2015 - COLONOSCOP W/ OR W/O [facility] SPEC 09/13/13 few diverticula, repeat 10 yrs - EGD W/O [facility] SPECIMEN W/BX 09/13/13 gastritis - FECAL OCCULT BLOOD TEST 07/16/2017 negative - HEMORRHOIDECTOMY 07/28/2017 - LIGATION OF HEMORRHOID(S) 05/05/2016 - PAST SURGICAL HISTORY OF - PAST SURGICAL HISTORY OF breast cyst, right? - REMOVAL OF TONSILS,<14 Y/O Tonsillectomy - [facility] N/CARPAL TUNNEL SURG 05/26/12 Carpal tunnel decomp-bilateral - TOOTH EXTRACTION ~2009 all teeth extracted - TOTAL ABDOM HYSTERECTOMY 1994 [place], ovaries? menorrhagia, benign FAMILY HISTORY Problem Relation Age of Onset - Ischemic Heart Disease Father 68 [place] 72 - Prostate Cancer Father - Coronary Artery Disease Father early 50's - ischemic bowel disease [OTHER] Father ?diverticulosis - Alzheimer's Disease Maternal Grandmother - Lipids Mother - Thyroid Mother - Thyroid Sister Social History: Alcohol Use: No Tobacco Use: .5 packs/day, for 20 years. Quit 05/18/2008. Types: Cigarettes Drug Use: No Employer And Job Title: [employer] Years Of Education Completed: Not specified Marital Status: Single with 2 children REVIEW OF SYSTEMS: Constitutional: (-) Fever (-) Night Sweats (+) Weight Gain (-) Weight Loss (+) Fatigue Cardiovascular: (-) Chest Pain (-) Palpitations (+) Lightheadedness (-) Swelling of Ankles (-) Hx Heart Surgery Respiratory: (+) Shortness of Breath (+) Cough (+) Wheezing (+) Snoring Gastrointestinal: (-) Incontinence (-) Abdominal Pain (-) Diarrhea (-) Constipation (-) Nausea/Vomiting (+) Heart Burn Endocrine: (+) Thyroid Disorder (-) Diabetes Hematologic: (-) Prolonged Bleeding (-) Easy Bruising Genitourinary: (-) Incontinence (+) Frequency (-) Urinary Urgency Skin: (-) Rashes (-) Itching (-) Other Lesions Neurologic: (-) Headache (+) Double Vision (-) Confusion (-) Paralysis (-) Vertigo (-) Syncope Psychiatric: (-) Depression (-) Anxiety (-) Delusions (-) Hallucinations (-) Suicidal Thoughts Alivia Chapman Ma OARRS Report reviewed: Yes Narcotic Agreement reviewed and signed?: N/A Baseline Urine Toxicology obtained: N/A Urine Panel: No results found for: UQCANN, UQBNZL, OJG3XRE, UQAMPH, UQMAMP, UQBUPRE, UQNORBUP, UQMTHD, UQEDDP, UQTRAM, UQDTRM, UQFNTL, UQNFTL, UQCODE, UQMORP, UQDCDN, UQHCOD, UQOXYC, UQHMOR, UQOXYM, UQCREA, UQPH, UQSPGR, UQOXID, UQSPQ The pain panel was N/A I have reviewed, confirmed and edited the preliminary information with the patient: OBJECTIVE: PHYSICAL EXAMINATION: Pulse 85 Ht 5' 5 (1.65m) Wt 218 lb (98.9kg) SpO2 95% BMI 36.28 kg/(m2). General: Well-appearing, alert, in no acute distress Skin: Skin color, texture, turgor normal, no rashes or lesions HEENT: Normocephalic, atraumatic, sclera nonicteric CV: Regular rate and rhythm -Pulses: +2 and equal bilaterally Resp: Breathing unlabored, normal chest excursion. Lymphatic:No lymphadema Musculoskeletal Neck: Posture and spinal curves are normal, Supple, normal range of motion, non-tender Back: Posture and spinal curves are normal, normal range of motion without reproducible pain, straight leg raising test is positive present on the left Extremities: Normal without deformity, edema or skin discoloration Neurological: Mental Status: Alert and oriented x3, Appropriate to topic Cranial Nerves: 2 through 12 intact Motor Strength:Motor strength and tone are 5/5 throughout Sensory:Sensation was intact to light touch all throughout DTR:Lower extremity reflexes are +2/4 and symmetric Gait: antalgic Medical record and diagnostic tests reviewed for today's visit: The [facility] EMR was reviewed during the visit IMAGING STUDIES: MRI reviewed. ASSESSMENT: (M54.16) Radiculopathy, lumbar region (primary encounter diagnosis) (M51.27) Lumbago-sciatica due to displacement of lumbar intervertebral disc Discussion: A discussion was entertained regarding multicomponent back pain source. Discussed conservative options and focus on improvement of function. Discussed the rationale behind interventional approach and how it can facilitate improvement of pain but also diagnostic information that procedures provide. 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 MRI was reviewed with the patient in detail. Her findings are discussed and injection was recommended. 2. Signed Prescriptions Disp Refills ketorolac (TORADOL) 10 mg tablet 20 tablet 0 Sig: Take 1 tablet by mouth every 6 hours as needed for up to 5 days. baclofen (LIORESAL) 10 mg tablet 60 tablet 0 Sig: Take 1 tablet by mouth twice daily. 3. Pain interventional procedure recommended: Left L4-L5 lumbar transforaminal injection 4. Continue with Activities tolerated. She remains off work and we discussed in detail that physical rehabilitation is an important part of healing process. 5. Follow up:3 months for an office visit. The above plan and management options were discussed with patient. The patient is in agreement with the above and verbalized understanding. I have discussed and confirmed the above treatment plan with the patient. and I have reviewed the nurses notes and I am aware of the family/social history. Perico Lincoln MD October 14, 2017 cc: [facility] Newman [address] [facility] [id number] Fax: Results of consultation to be transmitted via electronic medical record for those providers who practice within [facility] or with access to [employer] via MD Connect, or via letter. CNOV Observed: 10/14/2017 Status: COMPLETED Source: [place] 10:50 AM [facility] REPOSITORY Office Visit (PNMDNA) YUNIER PATIÑO ([id number]) 1960 F Date Time Provider Department 10/14/17 10:50 AM PERICO LINCOLN PNJOSY During your visit today, we recorded the following information about you: Pulse Weight Height 85/minute 98.9 kg 1.651 m Perico Lincoln MD 10/14/2017 1:59 PM Signed [facility] Pain Management Department Date: October 14, 2017 - 11:07 AM Yunier Patiño is seen in consultation requested by Dr. Elsa Hamilton ([facility]) Abdulaziz for an opinion regarding chronic lower back pain. My final recommendations will be communicated back to the requesting physician by way of shared medical record or via US mail. Chief Complaint: lower back pain SUBJECTIVE: Yunier Patiño, is a 57 year old year old who presents with lower back pain. The pain started 2 months ago, following with no precipitating event. and is persistent. Her pain is located in the bilateral lumbar region and radiates down the anterior leg. The pain is described as burning, numbness and tingling. The pain intensity is rated 8. The pain is exacerbated by activity, standing and walking and relieved by no known factors. Symptoms interfere with physical activity, walking and social activities. Obtained by Alivia Chapman Ma by interview and using data analytics developer from patient completed questionnaire I have reviewed, confirmed and edited the preliminary information with the patient: yes. In addition the patient reports no additional concerns. Litigation: No. Prior pain treatment has included physical therapy with no relief, Dates: currently attending, medications - muscle relaxants, NSAIDs and opioids with minimal relief and manipulation therapy Chiropractic with no relief. She had relief from the following interventions: None. ALLERGIES Allergen Reactions - Laguna Swelling - Ciprofloxacin Other: See Comments Chest tightness - Dust Swelling - Gabapentin Swelling Throat swelling. - Insect Parts Swelling, Shortness of Breath, Myalgia Pt not sure what bit her but developed redness,difficulty swallowing and swelling of face and neck - Morphine Vomiting - Pollen Swelling Current Medications: Pain medications reviewed and reconciled in the medication list: Yes. Current Outpatient Prescriptions: gabapentin (NEURONTIN) 300 mg capsule Take 1 capsule by mouth three times daily for 90 days. Take 1 capsule by mouth. Take one pill daily for 3 days. Take one pill BID for three days then increase to one pill TID. naproxen (NAPROSYN) 500 mg tablet Take 1 tablet by mouth twice daily as needed (for pain/inflammation). Take with food. cyclobenzaprine (FLEXERIL) 10 mg tablet Take 1 tablet by mouth every 8 hours as needed. levothyroxine (SYNTHROID) 50 mcg tablet Take 1 tablet by mouth once daily. Take on empty stomach. For thyroid. albuterol HFA (PROVENTIL HFA, VENTOLIN HFA) 90 mcg/actuation inhaler Inhale 2 Puffs as instructed every 6 hours as needed. pantoprazole DR (PROTONIX) 40 mg tablet Take 1 tablet by mouth daily before breakfast. Take on empty stomach, 1/2 hr before meal. ALBUTEROL INHALATION Inhale as instructed. SUMAtriptan (IMITREX) 100 mg tablet One table by mouth with onset of headache. Can repeat in and hour but only 2 tabs in 24 hrs. EPINEPHrine 0.3 mg/0.3 mL auto-injector Inject 0.3 mL intramuscularly as needed. ketorolac (TORADOL) 10 mg tablet Take 1 tablet by mouth every 6 hours as needed for up to 5 days. baclofen (LIORESAL) 10 mg tablet Take 1 tablet by mouth twice daily. No current facility-administered medications for this visit. PAST MEDICAL HISTORY Diagnosis Date - COPD (chronic obstructive pulmonary disease) (HCC) - GERD (gastroesophageal reflux disease) - Headache(784.0) starting 47 years old - Hypothyroidism 06/11/2012 PAST SURGICAL HISTORY Procedure Laterality Date - CHOLECYSTECTOMY 07/17/2015 - COLONOSCOP W/ OR W/O [facility] SPEC 09/13/13 few diverticula, repeat 10 yrs - EGD W/O [facility] SPECIMEN W/BX 09/13/13 gastritis - FECAL OCCULT BLOOD TEST 07/16/2017 negative - HEMORRHOIDECTOMY 07/28/2017 - LIGATION OF HEMORRHOID(S) 05/05/2016 - PAST SURGICAL HISTORY OF - PAST SURGICAL HISTORY OF breast cyst, right? - REMOVAL OF TONSILS,<14 Y/O Tonsillectomy - [facility] MEDIAN N/CARPAL TUNNEL SURG 05/26/12 Carpal tunnel decomp-bilateral - TOOTH EXTRACTION ~2009 all teeth extracted - TOTAL ABDOM HYSTERECTOMY 1994 [place], ovaries? menorrhagia, benign FAMILY HISTORY Problem Relation Age of Onset - Ischemic Heart Disease Father 68 [place] 72 - Prostate Cancer Father - Coronary Artery Disease Father early 50's - ischemic bowel disease [OTHER] Father ?diverticulosis - Alzheimer's Disease Maternal Grandmother - Lipids Mother - Thyroid Mother - Thyroid Sister Social History: Alcohol Use: No Tobacco Use: .5 packs/day, for 20 years. Quit 05/18/2008. Types: Cigarettes Drug Use: No Employer And Job Title: [employer] Years Of Education Completed: Not specified Marital Status: Single with 2 children REVIEW OF SYSTEMS: Constitutional: (-) Fever (-) Night Sweats (+) Weight Gain (-) Weight Loss (+) Fatigue Cardiovascular: (-) Chest Pain (-) Palpitations (+) Lightheadedness (-) Swelling of Ankles (-) Hx Heart Surgery Respiratory: (+) Shortness of Breath (+) Cough (+) Wheezing (+) Snoring Gastrointestinal: (-) Incontinence (-) Abdominal Pain (-) Diarrhea (-) Constipation (-) Nausea/Vomiting (+) Heart Burn Endocrine: (+) Thyroid Disorder (-) Diabetes Hematologic: (-) Prolonged Bleeding (-) Easy Bruising Genitourinary: (-) Incontinence (+) Frequency (-) Urinary Urgency Skin: (-) Rashes (-) Itching (-) Other Lesions Neurologic: (-) Headache (+) Double Vision (-) Confusion (-) Paralysis (-) Vertigo (-) Syncope Psychiatric: (-) Depression (-) Anxiety (-) Delusions (-) Hallucinations (-) Suicidal Thoughts Aliiva Chapman Ma OARRS Report reviewed: Yes Narcotic Agreement reviewed and signed?: N/A Baseline Urine Toxicology obtained: N/A Urine Panel: No results found for: UQCANN, UQBNZL, DSO5AEK, UQAMPH, UQMAMP, UQBUPRE, UQNORBUP, UQMTHD, UQEDDP, UQTRAM, UQDTRM, UQFNTL, UQNFTL, UQCODE, UQMORP, UQDCDN, UQHCOD, UQOXYC, UQHMOR, UQOXYM, UQCREA, UQPH, UQSPGR, UQOXID, UQSPQ The pain panel was N/A I have reviewed, confirmed and edited the preliminary information with the patient: OBJECTIVE: PHYSICAL EXAMINATION: Pulse 85 Ht 5' 5 (1.65m) Wt 218 lb (98.9kg) SpO2 95% BMI 36.28 kg/(m2). General: Well-appearing, alert, in no acute distress Skin: Skin color, texture, turgor normal, no rashes or lesions HEENT: Normocephalic, atraumatic, sclera nonicteric CV: Regular rate and rhythm -Pulses: +2 and equal bilaterally Resp: Breathing unlabored, normal chest excursion. Lymphatic:No lymphadema Musculoskeletal Neck: Posture and spinal curves are normal, Supple, normal range of motion, non-tender Back: Posture and spinal curves are normal, normal range of motion without reproducible pain, straight leg raising test is positive present on the left Extremities: Normal without deformity, edema or skin discoloration Neurological: Mental Status: Alert and oriented x3, Appropriate to topic Cranial Nerves: 2 through 12 intact Motor Strength:Motor strength and tone are 5/5 throughout Sensory:Sensation was intact to light touch all throughout DTR:Lower extremity reflexes are +2/4 and symmetric Gait: antalgic Medical record and diagnostic tests reviewed for today's visit: The [facility] EMR was reviewed during the visit IMAGING STUDIES: MRI reviewed. ASSESSMENT: (M54.16) Radiculopathy, lumbar region (primary encounter diagnosis) (M51.27) Lumbago-sciatica due to displacement of lumbar intervertebral disc Discussion: A discussion was entertained regarding multicomponent back pain source. Discussed conservative options and focus on improvement of function. Discussed the rationale behind interventional approach and how it can facilitate improvement of pain but also diagnostic information that procedures provide. 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 MRI was reviewed with the patient in detail. Her findings are discussed and injection was recommended. 2. Signed Prescriptions Disp Refills ketorolac (TORADOL) 10 mg tablet 20 tablet 0 Sig: Take 1 tablet by mouth every 6 hours as needed for up to 5 days. baclofen (LIORESAL) 10 mg tablet 60 tablet 0 Sig: Take 1 tablet by mouth twice daily. 3. Pain interventional procedure recommended: Left L4-L5 lumbar transforaminal injection 4. Continue with Activities tolerated. She remains off work and we discussed in detail that physical rehabilitation is an important part of healing process. 5. Follow up:3 months for an office visit. The above plan and management options were discussed with patient. The patient is in agreement with the above and verbalized understanding. I have discussed and confirmed the above treatment plan with the patient. and I have reviewed the nurses notes and I am aware of the family/social history. Perico Lincoln MD October 14, 2017 cc: CAMACHO Newman [address] [facility] [address] Fax: Results of consultation to be transmitted via electronic medical record for those providers who practice within [facility] or with access to [employer] via MD Connect, or via letter. Referring Provider: ELSA LOBO (PAC) [[id number]] Allergies As of Date: 10/14/2017 Noted Allergy Reaction LAGUNA 06/08/2012 7 - Swelling CIPROFLOXACIN 12/17/2015 14 - Other: See Comments Comments: Chest tightness DUST 06/08/2012 7 - Swelling GABAPENTIN 10/14/2017 7 - Swelling Comments: Throat swelling. INSECT PARTS 03/26/2016 7 - Swelling 12 - Shortness of Breath 17 - Myalgia Comments: Pt not sure what bit her but developed redness,difficulty swallowing and swelling of face and neck MORPHINE 06/08/2012 11 - Vomiting POLLEN 06/08/2012 7 - Swelling Date Reviewed: 10/14/2017 Reviewed by: Alivia Chapman Ma - Fully Assessed Reason for Visit: Established Patient [175] Cmt: injection referral Primary Visit Diagnosis:Radiculopathy, lumbar region [M54.16] Other Visit Diagnosis:Lumbago-sciatica due to displacement of lumbar intervertebral disc [M51.27] Order(s):INJ TRANSFORAMINAL EPID ANES/STER LS SINGL [[id number]] Order #: [id number] FUTURE TORADOL 60 MG IM X 1 DOSE [[id number]] Order #: [id number] ketorolac (TORADOL) 10 mg tabletTake 1 tablet by mouth every 6 hours as needed for up to 5 days.Disp: 20 tabletRfl: 0 baclofen (LIORESAL) 10 mg tabletTake 1 tablet by mouth twice daily.Disp: 60 tabletRfl: 0 Prescriptions as of 10/14/2017 Sig: GABAPENTIN 300 MG CAPSULE Take 1 capsule by mouth three* NAPROXEN 500 MG TABLET Take 1 tablet by mouth twice * CYCLOBENZAPRINE 10 MG TABLET Take 1 tablet by mouth every * LEVOTHYROXINE 50 MCG TABLET Take 1 tablet by mouth once d* ALBUTEROL SULFATE HFA 90 MCG/* Inhale 2 Puffs as instructed * PANTOPRAZOLE 40 MG TABLET,DEL* Take 1 tablet by mouth daily * ALBUTEROL INHALATION Inhale as instructed. SUMATRIPTAN 100 MG TABLET One table by mouth with onset* EPINEPHRINE 0.3 MG/0.3 ML INJ* Inject 0.3 mL intramuscularly* KETOROLAC 10 MG TABLET Take 1 tablet by mouth every * BACLOFEN 10 MG TABLET Take 1 tablet by mouth twice * Problem List As Of Date 10/14/2017 Noted Resolved Migraine without aura and without status migrai* Priority: A More... More... Acquired hypothyroidism [E03.9] INVALID FOR* Priority: A More... More... Encounter for screening for diabetes mellitus [*INVALID FOR* Encounter for screening for cardiovascular diso*INVALID FOR* Encounter for gynecological examination without*INVALID FOR* Priority: E More... Chronic obstructive pulmonary disease (HCC) [J4*INVALID FOR* Priority: B More... Hemorrhoids, internal, with bleeding [K64.8] INVALID FOR* Priority: C Well adult exam [Z00.00] INVALID FOR* Priority: E More... Prolapsed internal hemorrhoids [K64.8] INVALID FOR* More... Chronic bilateral low back pain with bilateral *INVALID FOR* Prescriptions ordered this encounter Disp Refills Start End KETOROLAC 10 MG TABLET 20 t* 0 10/14/2017 10/19/2017 Route: ORAL Sig: Take 1 tablet by mouth every 6 hours as needed for up to 5 days. BACLOFEN 10 MG TABLET 60 t* 0 10/14/2017 11/13/2017 Route: ORAL Sig: Take 1 tablet by mouth twice daily. Encounter Status:Closed by PERICO LINCOLN MD on 10/14/17 PROGRESS Observed: 10/13/2017 Status: COMPLETED Source: [place] 12:43 PM [facility] OTHER CAMPUS REPOSITORY O ID: [id number] Author: Kay (Ct) OLIVER Guzman Service: (none) Author Type: Clinical Conventional Machinist Type: Progress Notes Filed: 10/13/2017 12:44 PM Note Text: NAME:Yunier Patiño DATE: October 13, 2017 CCF#: [id number] Spine X-Ray(s): Lumbar / FLEX-EXT COMPLETED TECH ID SIGN: KAY KESHA XR LUMBAR 2V FLEX/EXT Observed: 10/13/2017 Status: F Source: [place] 10:28 AM [facility] REPOSITORY * * *Final Report* * * DATE OF EXAM: Oct 13 2017 10:28AM [facility] [id number] - XR LUMBAR 2V FLEX/EXT / PROCEDURE REASON: M51.16-Intervertebral disc disorders with radiculopathy, lumbar region * * * * Physician Interpretation * * * * PROCEDURE: Lumbar spine INDICATION: Intervertebral disc disorders with radiculopathy, lumbar region . TECHNIQUE: XR LUMBAR 2V FLEX/EXT COMPARISON: 09/08/2017 FINDINGS: Standing flexion and extension lateral views demonstrate normal alignment without fracture or acute subluxation. No movement is seen between flexion or extension. There is mild/moderate disc space narrowing at L4-5. No pars defects are seen. IMPRESSION: L4-5 degenerative disc disease. No evidence for instability. Migratory Farm Hand: ARIA Transcribe Date/Time: Oct 13 2017 12:29P Dictated by : LEYDA BACA MD This examination was interpreted and the report reviewed and electronically signed by: LEYDA BACA MD on Oct 13 2017 12:31PM EST [id number] Observed: 10/13/2017 Status: COMPLETED Source: [place] 9:10 AM [facility] REPOSITORY Office Visit ([facility]ED) YUNIER PATIÑO ([id number]) 1960 F Date Time Provider Department 10/13/17 9:10 AM ELSA LOBO (PAC) SPNMED During your visit today, we recorded the following information about you: Pulse Respiration Blood pressure Weight 89/minute 18/minute 111/63 98.9 kg Height 1.651 m CAMACHO Newman 10/13/2017 10:13 AM Signed [facility] [address] [place] [address] 10/13/2017 ASSESSMENT AND PLAN: Assessment : Encounter Diagnosis ICD-10-CM 1. Intervertebral disc disorder with radiculopathy of lumbar region M51.16 gabapentin (NEURONTIN) 300 mg capsule XR LUMBAR LIMITED 2V FLEX/EXT CONSULT TO PAIN MGT ANESTHESIA left leg pain Discussion: Ms. Patiño is a pleasant 57-year-old female here today for evaluation of 5 weeks of low back pain and left lower extremity radiating symptoms. Her back pain is the worst part of her problem currently. She has had an MRI scan and a series of x-rays that are reviewed below. There is no severe stenosis appreciated. Her exam reveals moderately severe tenderness throughout the lumbar musculature, midline bony prominences, and posterior pelvic bony prominences including bilateral PSIS, SI regions, sciatic notch. She has mild os activity to straight leg raising on the left side and leans away from that side when attempting to raise her leg. Reflex testing is without deficit. She denies focal numbness in the lower extremities. She leans heavily on walker and favors her left leg. She has difficulty standing up straight reproducing central back pain. The worst pain seems to be reproduced with left-sided side leaning. Flexion does not cause her any symptoms. At this point, it appears that the patient's pain level is higher than expected based on the findings of the scan and x-rays. I will try to clarify things further with flexion and extension lateral films. She will start gabapentin at doses that are more pertinent to spine nerve root pain and we reviewed all of the traditional precautions and side effects of this medication during today's visit. She will also start her supervised physical therapy and quitting traction and modalities to see if this will help calm down her local symptoms. I do not think she will benefit from additional steroid medication or muscle relaxants at this point. Finally, I think she would benefit from consideration of a selective nerve root block to see if we can pinpoint her symptoms more accurately on the left L5 and S1. She'll come back to see me in about 6 weeks or sooner if she develops worsening symptoms. Plan : DIAGNOSTIC TESTING: -Dynamic plain radiographs of the Lumbar spine are ordered. REFERAL FOR SERVICES: -Consult to Pain Anesthesia: Type of injection requested: Lumbar transforaminal epidural steroid injection left L5 and S1. The purpose will be for both diagnostic and therapeutic purposes. The patient is instructed to pay attention to the amount of pain during the anesthetic phase, and during that time to perform the activities that typically exacerbate the pain to determine what percentage of relief is gained. The patient is instructed that the steroid phase of the injection may take up to a week or more to provide relief, and to pay attention to the percentage of relief obtained during the steroid phase. If the steroid phase gives significant pain relief, the procedure can be repeated. MEDICATIONS: -Neurontin 300 mg, titrating up to 900mg TID as tolerated. Off-label use for neuropathic pain was discussed with the patient. ACTIVITY RECOMMENDATIONS: -The patient advised to avoid prolonged sitting. FOLLOW-UP: -The patient is instructed to return after six weeks of therapy. This document has been created with the use of voice recognition technology. It may contain inaccuracies: (e.g. misspellings, inaccurate syntax or word sense) that have escaped review. Time spent: 45 minutes with greater than 50% in face to face consultation with the patient. cc: Aarti Sotelo APRN.[facility] [address] [facility] [address] Results of consultation to be transmitted via electronic medical record for those providers who practice within [facility] or with access to [employer] via MD Connect, or via letter. Yunier Patiño is a 57 year old female who was seen today at the kind request of Aarti Sotelo CNP. A copy of this office note is being sent to the requesting physician through via electronic medical record. CHIEF COMPLAINT: Back pain > Leg symptoms Left only HPI: Her back pain is at 6/10 and is constant. The back pain is located in lower back and is described as aching and stabbing. Her leg symptoms are at 4/10 and are constant. This is located in the left thigh, below the left knee and in the left foot and is described as numbness and tingling. The symptoms are exacerbated by walking, physical activites and standing and improved by sitting in a recliner. She states that these symptoms began 1 to 2 months ago and are not related to any specific injury or event. September 07, 2017, her pain increased dramatically without injury/provocation. 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 Spinal Injections: She has not gotten prior spinal injections. Other: None Current Outpatient Prescriptions: naproxen (NAPROSYN) 500 mg tablet Take 1 tablet by mouth twice daily as needed (for pain/inflammation). Take with food. Disp: 60 tablet Rfl: 2 gabapentin (NEURONTIN) 100 mg capsule Take 1 capsule by mouth twice daily for 90 days. Disp: 180 capsule Rfl: 0 cyclobenzaprine (FLEXERIL) 10 mg tablet Take 1 tablet by mouth every 8 hours as needed. Disp: 8 tablet Rfl: 0 levothyroxine (SYNTHROID) 50 mcg tablet Take 1 tablet by mouth once daily. Take on empty stomach. For thyroid. Disp: 30 tablet Rfl: 5 albuterol HFA (PROVENTIL HFA, VENTOLIN HFA) 90 mcg/actuation inhaler Inhale 2 Puffs as instructed every 6 hours as needed. Disp: 1 Inhaler Rfl: [address] (PROTONIX) 40 mg tablet Take 1 tablet by mouth daily before breakfast. Take on empty stomach, 1/2 hr before meal. Disp: 30 tablet Rfl: 5 ALBUTEROL INHALATION Inhale as instructed. Disp: Rfl: SUMAtriptan (IMITREX) 100 mg tablet One table by mouth with onset of headache. Can repeat in and hour but only 2 tabs in 24 hrs. Disp: 12 tablet Rfl: 3 EPINEPHrine 0.3 mg/0.3 mL auto-injector Inject 0.3 mL intramuscularly as needed. Disp: 2 Each Rfl: 2 No current facility-administered medications for this visit. Allergies: Laguna; Ciprofloxacin; Dust; Insect Parts; Morphine; Pollen PAST MEDICAL HISTORY Diagnosis Date - COPD (chronic obstructive pulmonary disease) (HCC) - GERD (gastroesophageal reflux disease) - Headache(784.0) starting 47 years old - Hypothyroidism 06/11/2012 PAST SURGICAL HISTORY Procedure Laterality Date - CHOLECYSTECTOMY 07/17/2015 - COLONOSCOP W/ OR W/O [facility] SPEC 09/13/13 few diverticula, repeat 10 yrs - EGD W/O [facility] SPECIMEN W/BX 09/13/13 gastritis - FECAL OCCULT BLOOD TEST 07/16/2017 negative - HEMORRHOIDECTOMY 07/28/2017 - LIGATION OF HEMORRHOID(S) 05/05/2016 - PAST SURGICAL HISTORY OF - PAST SURGICAL HISTORY OF breast cyst, right? - REMOVAL OF TONSILS,<14 Y/O Tonsillectomy - [facility] N/CARPAL TUNNEL SURG 05/26/12 Carpal tunnel decomp-bilateral - TOOTH EXTRACTION ~2009 all teeth extracted - TOTAL ABDOM HYSTERECTOMY 1994 KENNEDY, ovaries? menorrhagia, benign Social History Marital status: Single Spouse name: Years of education: Number of children: 2 Occupational History Occupation Employer Comment [employer] Social History Main Topics Smoking status: Former Smoker Packs/day: 0.50 Years: 20.00 Types: Cigarettes Quit date: 05/18/2008 Smokeless tobacco: Never Used Alcohol use: No Drug use: No Sexual activity: Yes Partners with: Male control/protection: Surgical Social History Narrative from her since 1990 ( did not show twice for divorce). FAMILY HISTORY Problem Relation Age of Onset - Ischemic Heart Disease Father 68 [place] 72 - Prostate Cancer Father - Coronary Artery Disease Father early 50's - ischemic bowel disease [OTHER] Father ?diverticulosis - Alzheimer's Disease Maternal Grandmother - Lipids Mother - Thyroid Mother - Thyroid Sister REVIEW OF SYSTEMS: Constitutional: (-) Fever (+) Night Sweats (+) Weight Gain (-) Weight Loss (+) Fatigue Cardiovascular: (+) Chest Pain (+) Palpitations (+) Lightheadedness (-) Swelling of Ankles (-) Hx Heart Surgery Respiratory: (+) Shortness of Breath (-) Cough (-) Wheezing (-) Snoring Gastrointestinal: (-) Incontinence (+) Abdominal Pain (+) Diarrhea (-) Constipation (-) Nausea/Vomiting (+) Heart Burn Endocrine: (+) Thyroid Disorder (-) Diabetes Hematologic: (-) Prolonged Bleeding (-) Easy Bruising Genitourinary: (-) Incontinence (+) Frequency (+) Urinary Urgency Skin: (-) Rashes (-) Itching (-) Other Lesions Neurologic: (+) Headache (+) Double Vision (-) Confusion (-) Paralysis (-) Vertigo (-) Syncope Psychiatric: (-) Depression (-) Anxiety (-) Delusions (-) Hallucinations (-) Suicidal Thoughts PHYSICAL EXAM: Blood pressure 111/63, pulse 89, resp. rate 18, height 165.1 cm (5' 5), weight 98.9 kg (218 lb), SpO2 94 %. General: Patient is a(n) average historian. The patient appears older than her stated age and is sitting uncomfortably in the examining room. The patient is average height in stature and is obese in appearance. She has difficulty arising from a sitting position. She does have difficulty acquiring a full, upright position when standing. Station and Gait: favoring the left lower extremity and flexed posture and gait using a walker The patient is unable to walk in a tandem gait. MENTAL STATUS EXAMINATION: The patient was well groomed and casually attired. The patient had good eye contact and rapport was average to establish. The patient appeared to be alert and oriented in all spheres. The patient's motivation for treatment was judged based on today's encounter to be good. LUMBAR SPINE: Skin: Normal-no rashes, bruises, lesions, or signs of localized trauma., Skin color, texture and turgor normal. Lumbar Lordosis: Normal RANGE OF MOTION: Flexion: normal, as expected for age and weight Pain: No Extension: abnormal, decreased motion below expected for age and weight Pain: Yes Lateral Bending: Right normal, as expected for age and weight Pain: Yes Left abnormal, decreased motion below expected for age and weight Pain: Yes PALPATION TENDERNESS: Severe at lumbar region, posterior pelvis and gluteal region Hyperesthesia present: Yes, in the following locations: lumbar region, posterior pelvis and gluteal region. Regional symptoms present: No Increased pain with axial loading: No Distraction: Normal Pain responses: elevated NEUROLOGIC EXAM: MOTOR: Requires verbal cues to minimize cog-wheel or give-way resistance: Yes Hip Flexor R: 5/5 L: 4/5 Hip Adductor R: 5/5 L: 5/5 Hip Abductor R: 5/5 L: 5/5 Knee Extension R: 5/5 L: 5/5 Foot Dorsiflexion R: 5/5 L: 5/5 Foot Plantar Flexion R: 5/5 L: 4/5 Ext Hallicus Longus R: 5/5 L: 5/5 Toe Extensors R: 5/5 L: 4/5 SENSATION to Light Touch: Lumbar: L2-S1 symmetrically normal. REFLEXES: Lower Extremity: All Lower Extremity reflexes symmetrically normal. Clonus: R: 0 beats/Normal L: 0 beats/Normal Babinski Sign: Negative bilaterally. Upper Extremity: Milton's Sign: Negative bilaterally. VASCULAR: Skin appearance: Right: Warm/pink Left: Warm/pink Capillary refill: Right: brisk Left: brisk Pulses: Posterior Tibialis Right: 2+ Left: 2+ Dorsalis Pedis Right: 2+ Left: 2+ ADDITIONAL MUSCULOSKELETAL EXAM: HIP/PELVIS EXAM: Motion restriction: Right: No Left: Yes Pain: Right: No Left: reproduces LBP only Greater Trochanteric pain: Right: No Left: No Tenderness over the PSIS: Right: Yes Left: Yes SPECIAL TESTS: Straight Leg Raise: mildly positive on the left Contralateral Straight Leg Raise: negative bilaterally IMAGING STUDIES: Planar Some recent lumbar MRI were reviewed with patient during today's visit. The x-rays show questionable L5-S1 spondylolisthesis. I will look at this further with flexion and extension lateral views focused on this area. The MRI showed mild multilevel disc degeneration without any severe central or foraminal stenosis. There is multilevel facet degeneration appreciated. Referring Provider: AARTI SOTELO ([facility]) [[id number]] Allergies As of Date: 10/13/2017 Noted Allergy Reaction LAGUNA 06/08/2012 7 - Swelling CIPROFLOXACIN 12/17/2015 14 - Other: See Comments Comments: Chest tightness DUST 06/08/2012 7 - Swelling INSECT PARTS 03/26/2016 7 - Swelling 12 - Shortness of Breath 17 - Myalgia Comments: Pt not sure what bit her but developed redness,difficulty swallowing and swelling of face and neck MORPHINE 06/08/2012 11 - Vomiting POLLEN 06/08/2012 7 - Swelling Date Reviewed: 10/13/2017 Reviewed by: Rosa Elena Crespo MA - Fully Assessed Reason for Visit: New Patient [172] Cmt: Low Back Pain Primary Visit Diagnosis:Intervertebral disc disorder with radiculopathy of lumbar region [M51.16] Comment:left leg pain Order(s):gabapentin (NEURONTIN) 300 mg capsuleTake 1 capsule by mouth three times daily for 90 days. Take 1 capsule by mouth. Take one pill daily for 3 days. Take one pill BID for three days then increase to one pill TID.Disp: 90 capsuleRfl: 1 XR LUMBAR LIMITED 2V FLEX/EXT [[id number]] Order #: [id number] FUTURE CONSULT TO PAIN MGT ANESTHESIA [[id number]] Order #: [id number]: 1 Prescriptions as of 10/13/2017 Sig: NAPROXEN 500 MG TABLET Take 1 tablet by mouth twice * CYCLOBENZAPRINE 10 MG TABLET Take 1 tablet by mouth every * LEVOTHYROXINE 50 MCG TABLET Take 1 tablet by mouth once d* ALBUTEROL SULFATE HFA 90 MCG/* Inhale 2 Puffs as instructed * PANTOPRAZOLE 40 MG TABLET,DEL* Take 1 tablet by mouth daily * ALBUTEROL INHALATION Inhale as instructed. SUMATRIPTAN 100 MG TABLET One table by mouth with onset* EPINEPHRINE 0.3 MG/0.3 ML INJ* Inject 0.3 mL intramuscularly* GABAPENTIN 300 MG CAPSULE Take 1 capsule by mouth three* Problem List As Of Date 10/13/2017 Noted Resolved Migraine without aura and without status migrai* Priority: A More... More... Acquired hypothyroidism [E03.9] INVALID FOR* Priority: A More... More... Encounter for screening for diabetes mellitus [*INVALID FOR* Encounter for screening for cardiovascular diso*INVALID FOR* Encounter for gynecological examination without*INVALID FOR* Priority: E More... Chronic obstructive pulmonary disease (HCC) [J4*INVALID FOR* Priority: B More... Hemorrhoids, internal, with bleeding [K64.8] INVALID FOR* Priority: C Well adult exam [Z00.00] INVALID FOR* Priority: E More... Prolapsed internal hemorrhoids [K64.8] INVALID FOR* More... Chronic bilateral low back pain with bilateral *INVALID FOR* Prescriptions ordered this encounter Disp Refills Start End GABAPENTIN 300 MG CAPSULE 90 c* 1 10/13/2017 01/11/2018 Class: Print RX Route: ORAL Sig: Take 1 capsule by mouth three times daily for 90 days. Take 1 capsule by mouth. Take one pill daily for 3 days. Take one pill BID for three days then increase to one pill TID. Medications Discontinued During This Encounter gabapentin (NEURONTIN) 100 mg capsule 180 * 0 09/29/2017 10/13/2017 Route: ORAL Sig: Take 1 capsule by mouth twice daily for 90 days. Disc: Dosage adjustment Disposition: Return in about 6 weeks (around 11/24/2017). Follow-up and Disposition History Recorded Encounter Status:Closed by ELSA LOBO PA-C on 10/13/17 PROGRESS Observed: 10/13/2017 Status: COMPLETED Source: [place] 9:09 AM [facility] REPOSITORY HNO ID: [id number] Author: Elsa Hamilton ([facility]) Abdulaziz Service: (none) Author Type: Physician Wood Tile Installation Helper Type: Progress Notes Filed: 10/13/2017 10:13 AM Note Text: Elsa Lobo PA-C [facility] [address] [place] [address] 10/13/2017 ASSESSMENT AND PLAN: Assessment : Encounter Diagnosis ICD-10-CM 1. Intervertebral disc disorder with radiculopathy of lumbar region M51.16 gabapentin (NEURONTIN) 300 mg capsule XR LUMBAR LIMITED 2V FLEX/EXT CONSULT TO PAIN MGT ANESTHESIA left leg pain Discussion: Ms. Patiño is a pleasant 57-year-old female here today for evaluation of 5 weeks of low back pain and left lower extremity radiating symptoms. Her back pain is the worst part of her problem currently. She has had an MRI scan and a series of x-rays that are reviewed below. There is no severe stenosis appreciated. Her exam reveals moderately severe tenderness throughout the lumbar musculature, midline bony prominences, and posterior pelvic bony prominences including bilateral PSIS, SI regions, sciatic notch. She has mild os activity to straight leg raising on the left side and leans away from that side when attempting to raise her leg. Reflex testing is without deficit. She denies focal numbness in the lower extremities. She leans heavily on walker and favors her left leg. She has difficulty standing up straight reproducing central back pain. The worst pain seems to be reproduced with left-sided side leaning. Flexion does not cause her any symptoms. At this point, it appears that the patient's pain level is higher than expected based on the findings of the scan and x-rays. I will try to clarify things further with flexion and extension lateral films. She will start gabapentin at doses that are more pertinent to spine nerve root pain and we reviewed all of the traditional precautions and side effects of this medication during today's visit. She will also start her supervised physical therapy and quitting traction and modalities to see if this will help calm down her local symptoms. I do not think she will benefit from additional steroid medication or muscle relaxants at this point. Finally, I think she would benefit from consideration of a selective nerve root block to see if we can pinpoint her symptoms more accurately on the left L5 and S1. She'll come back to see me in about 6 weeks or sooner if she develops worsening symptoms. Plan : DIAGNOSTIC TESTING: -Dynamic plain radiographs of the Lumbar spine are ordered. REFERAL FOR SERVICES: -Consult to Pain Anesthesia: Type of injection requested: Lumbar transforaminal epidural steroid injection left L5 and S1. The purpose will be for both diagnostic and therapeutic purposes. The patient is instructed to pay attention to the amount of pain during the anesthetic phase, and during that time to perform the activities that typically exacerbate the pain to determine what percentage of relief is gained. The patient is instructed that the steroid phase of the injection may take up to a week or more to provide relief, and to pay attention to the percentage of relief obtained during the steroid phase. If the steroid phase gives significant pain relief, the procedure can be repeated. MEDICATIONS: -Neurontin 300 mg, titrating up to 900mg TID as tolerated. Off-label use for neuropathic pain was discussed with the patient. ACTIVITY RECOMMENDATIONS: -The patient advised to avoid prolonged sitting. FOLLOW-UP: -The patient is instructed to return after six weeks of therapy. This document has been created with the use of voice recognition technology. It may contain inaccuracies: (e.g. misspellings, inaccurate syntax or word sense) that have escaped review. Time spent: 45 minutes with greater than 50% in face to face consultation with the patient. cc: Aarti Sotelo APRN.[facility] [address] [facility] [address] Results of consultation to be transmitted via electronic medical record for those providers who practice within [facility] or with access to [facility] via [facility], or via letter. Yunier Patiño is a 57 year old female who was seen today at the kind request of Aarti Sotelo CNP. A copy of this office note is being sent to the requesting physician through via electronic medical record. CHIEF COMPLAINT: Back pain > Leg symptoms Left only HPI: Her back pain is at 6/10 and is constant. The back pain is located in lower back and is described as aching and stabbing. Her leg symptoms are at 4/10 and are constant. This is located in the left thigh, below the left knee and in the left foot and is described as numbness and tingling. The symptoms are exacerbated by walking, physical activites and standing and improved by sitting in a recliner. She states that these symptoms began 1 to 2 months ago and are not related to any specific injury or event. September 07, 2017, her pain increased dramatically without injury/provocation. 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 Spinal Injections: She has not gotten prior spinal injections. Other: None Current Outpatient Prescriptions: naproxen (NAPROSYN) 500 mg tablet Take 1 tablet by mouth twice daily as needed (for pain/inflammation). Take with food. Disp: 60 tablet Rfl: 2 gabapentin (NEURONTIN) 100 mg capsule Take 1 capsule by mouth twice daily for 90 days. Disp: 180 capsule Rfl: 0 cyclobenzaprine (FLEXERIL) 10 mg tablet Take 1 tablet by mouth every 8 hours as needed. Disp: 8 tablet Rfl: 0 levothyroxine (SYNTHROID) 50 mcg tablet Take 1 tablet by mouth once daily. Take on empty stomach. For thyroid. Disp: 30 tablet Rfl: 5 albuterol HFA (PROVENTIL HFA, VENTOLIN HFA) 90 mcg/actuation inhaler Inhale 2 Puffs as instructed every 6 hours as needed. Disp: 1 Inhaler Rfl: [address] (PROTONIX) 40 mg tablet Take 1 tablet by mouth daily before breakfast. Take on empty stomach, 1/2 hr before meal. Disp: 30 tablet Rfl: 5 ALBUTEROL INHALATION Inhale as instructed. Disp: Rfl: SUMAtriptan (IMITREX) 100 mg tablet One table by mouth with onset of headache. Can repeat in and hour but only 2 tabs in 24 hrs. Disp: 12 tablet Rfl: 3 EPINEPHrine 0.3 mg/0.3 mL auto-injector Inject 0.3 mL intramuscularly as needed. Disp: 2 Each Rfl: 2 No current facility-administered medications for this visit. Allergies: Laguna; Ciprofloxacin; Dust; Insect Parts; Morphine; Pollen PAST MEDICAL HISTORY Diagnosis Date - COPD (chronic obstructive pulmonary disease) ([facility]) - GERD (gastroesophageal reflux disease) - Headache(784.0) starting 47 years old - Hypothyroidism 06/11/2012 PAST SURGICAL HISTORY Procedure Laterality Date - CHOLECYSTECTOMY 07/17/2015 - COLONOSCOP W/ OR W/O [facility] SPEC 09/13/13 few diverticula, repeat 10 yrs - EGD W/O [facility] SPECIMEN W/BX 09/13/13 gastritis - FECAL OCCULT BLOOD TEST 07/16/2017 negative - HEMORRHOIDECTOMY 07/28/2017 - LIGATION OF HEMORRHOID(S) 05/05/2016 - PAST SURGICAL HISTORY OF - PAST SURGICAL HISTORY OF breast cyst, right? - REMOVAL OF TONSILS,<14 Y/O Tonsillectomy - [facility] N/CARPAL TUNNEL SURG 05/26/12 Carpal tunnel decomp-bilateral - TOOTH EXTRACTION ~2009 all teeth extracted - TOTAL ABDOM HYSTERECTOMY 1994 [place], ovaries? menorrhagia, benign Social History Marital status: Single Spouse name: Years of education: Number of children: 2 Occupational History Occupation Employer [employer] Social History Main Topics Smoking status: Former Smoker Packs/day: 0.50 Years: 20.00 Types: Cigarettes Quit date: 05/18/2008 Smokeless tobacco: Never Used Alcohol use: No Drug use: No Sexual activity: Yes Partners with: Male control/protection: Surgical Social History Narrative from her since 1990 ( did not show twice for divorce). FAMILY HISTORY Problem Relation Age of Onset - Ischemic Heart Disease Father 68 [place] 72 - Prostate Cancer Father - Coronary Artery Disease Father early 50's - ischemic bowel disease [OTHER] Father ?diverticulosis - Alzheimer's Disease Maternal Grandmother - Lipids Mother - Thyroid Mother - Thyroid Sister REVIEW OF SYSTEMS: Constitutional: (-) Fever (+) Night Sweats (+) Weight Gain (-) Weight Loss (+) Fatigue Cardiovascular: (+) Chest Pain (+) Palpitations (+) Lightheadedness (-) Swelling of Ankles (-) Hx Heart Surgery Respiratory: (+) Shortness of Breath (-) Cough (-) Wheezing (-) Snoring Gastrointestinal: (-) Incontinence (+) Abdominal Pain (+) Diarrhea (-) Constipation (-) Nausea/Vomiting (+) Heart Burn Endocrine: (+) Thyroid Disorder (-) Diabetes Hematologic: (-) Prolonged Bleeding (-) Easy Bruising Genitourinary: (-) Incontinence (+) Frequency (+) Urinary Urgency Skin: (-) Rashes (-) Itching (-) Other Lesions Neurologic: (+) Headache (+) Double Vision (-) Confusion (-) Paralysis (-) Vertigo (-) Syncope Psychiatric: (-) Depression (-) Anxiety (-) Delusions (-) Hallucinations (-) Suicidal Thoughts PHYSICAL EXAM: Blood pressure 111/63, pulse 89, resp. rate 18, height 165.1 cm (5' 5), weight 98.9 kg (218 lb), SpO2 94 %. General: Patient is a(n) average historian. The patient appears older than her stated age and is sitting uncomfortably in the examining room. The patient is average height in stature and is obese in appearance. She has difficulty arising from a sitting position. She does have difficulty acquiring a full, upright position when standing. Station and Gait: favoring the left lower extremity and flexed posture and gait using a walker The patient is unable to walk in a tandem gait. MENTAL STATUS EXAMINATION: The patient was well groomed and casually attired. The patient had good eye contact and rapport was average to establish. The patient appeared to be alert and oriented in all spheres. The patient's motivation for treatment was judged based on today's encounter to be good. LUMBAR SPINE: Skin: Normal-no rashes, bruises, lesions, or signs of localized trauma., Skin color, texture and turgor normal. Lumbar Lordosis: Normal RANGE OF MOTION: Flexion: normal, as expected for age and weight Pain: No Extension: abnormal, decreased motion below expected for age and weight Pain: Yes Lateral Bending: Right normal, as expected for age and weight Pain: Yes Left abnormal, decreased motion below expected for age and weight Pain: Yes PALPATION TENDERNESS: Severe at lumbar region, posterior pelvis and gluteal region Hyperesthesia present: Yes, in the following locations: lumbar region, posterior pelvis and gluteal region. Regional symptoms present: No Increased pain with axial loading: No Distraction: Normal Pain responses: elevated NEUROLOGIC EXAM: MOTOR: Requires verbal cues to minimize cog-wheel or give-way resistance: Yes Hip Flexor R: 5/5 L: 4/5 Hip Adductor R: 5/5 L: 5/5 Hip Abductor R: 5/5 L: 5/5 Knee Extension R: 5/5 L: 5/5 Foot Dorsiflexion R: 5/5 L: 5/5 Foot Plantar Flexion R: 5/5 L: 4/5 Ext Hallicus Longus R: 5/5 L: 5/5 Toe Extensors R: 5/5 L: 4/5 SENSATION to Light Touch: Lumbar: L2-S1 symmetrically normal. REFLEXES: Lower Extremity: All Lower Extremity reflexes symmetrically normal. Clonus: R: 0 beats/Normal L: 0 beats/Normal Babinski Sign: Negative bilaterally. Upper Extremity: Milton's Sign: Negative bilaterally. VASCULAR: Skin appearance: Right: Warm/pink Left: Warm/pink Capillary refill: Right: brisk Left: brisk Pulses: Posterior Tibialis Right: 2+ Left: 2+ Dorsalis Pedis Right: 2+ Left: 2+ ADDITIONAL MUSCULOSKELETAL EXAM: HIP/PELVIS EXAM: Motion restriction: Right: No Left: Yes Pain: Right: No Left: reproduces LBP only Greater Trochanteric pain: Right: No Left: No Tenderness over the PSIS: Right: Yes Left: Yes SPECIAL TESTS: Straight Leg Raise: mildly positive on the left Contralateral Straight Leg Raise: negative bilaterally IMAGING STUDIES: Planar Some recent lumbar MRI were reviewed with patient during today's visit. The x-rays show questionable L5-S1 spondylolisthesis. I will look at this further with flexion and extension lateral views focused on this area. The MRI showed mild multilevel disc degeneration without any severe central or foraminal stenosis. There is multilevel facet degeneration appreciated. PROGRESS Observed: 10/08/2017 Status: COMPLETED Source: [place] 2:22 PM [facility] [place] REPOSITORY O ID: [id number] Author: Mago Arenas Service: (none) Author Type: (none) Type: Progress Notes Filed: 10/08/2017 2:23 PM Note Text: Radiology Service Progress Note PATIENT NAME: Yunier Patiño DATE OF SERVICE: October 08, 2017 TIME: 2:22 PM PATIENT IDENTITY VERIFICATION COMPLETED USING TWO (2) METHODS: Patient confirmed name verbally and Date of . PATIENT GENDER DATA: Female. status: : No status: NO. PATIENT RELEVANT IMPLANT DATA REVIEWED: Not Applicable CONTRAST INDUCED NEPHROPATHY RISK FACTORS: Not applicable CREATININE: Creatinine Date Value Ref Range Status 05/13/2016 0.69 (L) 0.70 - 1.40 mg/dL Final 03/23/2016 0.72 0.70 - 1.40 mg/dL Final 07/14/2014 0.77 0.70 - 1.40 mg/dL Final eGFR-All Other Races Date Value Ref Range Status 05/13/2016 >60 . Final Comment: eGFR (Estimated GFR) Units of measure: mL/min/1.73 meters squared eGFR is derived from the reexpressed MDRD Study equation using the following parameters: serum creatinine, age, gender and race. The creatinine assay has been calibrated to be traceable to IDMS. An eGFR <60 mL/min/1.73m2 for >3 months is consistent with chronic kidney disease. Refer to KDOQI guidelines for clinical interpretation. In patients with unstable renal function, e.g. those with acute kidney injury, the eGFR may not accurately reflect actual GFR. eGFR- Date Value Ref Range Status 07/14/2014 >60 Final P.O.C.T. RESULTS: N/A October 08, 2017 RADIOLOGIST NOTIFIED?: No ALLERGIES: Reviewed and unchanged CONTRAST ALLERGY: NO. PERIPHERAL IV ACCESS: Ambulatory: IV type: A peripheral IV was started in the Left antecubital site with a Angio cath: 18 gauge., Site assessment: Clean,Dry and Intact, Site disposition Discontinued RADIOLOGY DEPARTMENT: CT; Exam(s) Completed: CTA Abdomen Pelvis SIGNED BY: Mago Campo Ct October 08, 2017 2:22 PM PROGRESS Observed: 10/08/2017 Status: COMPLETED Source: [place] 1:06 PM [facility] [place] REPOSITORY O ID: [id number] Author: Elizabeth (PtClyde Trotter Service: (none) Author Type: Physical Therapist Type: Progress Notes Filed: 10/08/2017 1:13 PM Note Text: Episode Visit Count: 1 Therapist That Will Oversee The Plan Of Care: Elizabeth Trotter Start of Care Date: 10/08/17 Onset Date: 09/07/17 Patient Identified by Name and Date of : Yes REH[facility]ER[facility] PHYSICAL THERAPY EVALUATION PLAN OF CARE: Assessment: Yunier Patiño presents with the chief complaint of bilateral low back pain with LE sx as well left greater than right . Pt using wheeled walker with forward flexed posture. She presents with impairments of decreased ROM/ strength and functional status. She may benefit from skilled therapy services to improve pain and functional status. Low Back Pain Subgroup Classification Low Back Pain Subgroup Classification: Graded activity subgroup: recommended visits 12. Graded Activity Subgroup Classification based on: exam findings suggestive of central sensitization;disproportionate pain Prognosis: Fair Fair due to: clinical presentation Goals for Episode of Care: created on 10/08/17 through 11/08/17 Independent in home exercises. Patient will decrease pain rating by 2 points to meet minimal clinical important difference for numeric pain rating scale. Restore pain-free lumbar ROM to only mild limitations to allow for improved functional status Stand / Walk without walker without pain/symptoms increased. Patient will be able to tolerate functional activities without increased symptoms. Patient will be able to correct postural deviations independently in order to allow for maintenance of proper alignment , improve postural alignment of trunk during functional activities and allow for normal mechanics. Planned Interventions, Frequency, and Duration: Current Frequency: 1x/week Duration: 4 weeks Total Number of Visits Planned: 4 Patient to be see for Planned Treatment Interventions: Therapeutic exercise;Manual therapy;Self-long-term management;Patient/Family/Caregiver Education PLAN FOR NEXT VISIT: Will upgrade ROM and strengthening exs as tolerated. work on postural correction Patient demonstrates good understanding of plan of care and treatment. The above goals and plan of care were discussed and agreed upon by patient/family. SUBJECTIVE: Yunier Patiño is a 57 year old female seen today for bilateral low back pain. states hands and feet go tingling, feet legs feel like they go numb. This happens about 6-7 times per day. Episodes last about 20 minutes. 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 Home Environment Patient Lives With: Family Equipment Owned: Wheeled Walker;Cane ( used this to the 07 September) Spine History Symptoms Location at Onset: Back Symptoms Since Onset: Unchanged Pain is Worse Always: Standing;Walking Pain is Better Sometimes: ( recliner on left side) Previous Episodes: No Sleeping Position: Side lying left Sleep Affected by Pain: Pain keeps from falling asleep;Pain awakens Red Flags Vertebral Fracture Red Flags: Female Abdominal Aortic Aneurysm Red Flags: ( being evaluated with CT scan today regarding Aneurysm) Abdominal Aortic Aneurysm Clinical Reasoning: Proceed with caution Cauda Equina Syndrome Red Flags: ( none) Pain Score: 5/10 Pain Location: Low Back/Lumbar Spine - Left;Low Back/Lumbar Spine - Right Description: Aching Frequency: Continuous Post Treatment Pain Score: No Change Pain Location: Low Back/Lumbar Spine - Left;Low Back/Lumbar Spine - Right Post Treatment Pain Description: Throbbing OBJECTIVE MEASURES WITH LEVEL OF FUNCTION: Posture / Alignment Posture: ( Forward flexed position) Lumbo - Pelvic Alignment: ( decreased WB of left LE) Effects of Posture Correction: increased pain Gait Assessment Weight Bearing Status: FWB Gait: Independent Gait Device: Front-wheeled Walker Gait Deviations: Left Lower Extremity Gait Deviations Left Lower Extremity: Heel strike during initial stance decreased;Push-off during terminal stance decreased ( grags left LE ) Spine Observations Spine presents with: hypersensitivity Spine Palpation R Lumbar Spine Palpation Tenderness: Paraspinals;Spinous Process L Lumbar Spine Palpation Tenderness: Paraspinals;Spinous Process Lumbar Spine AROM Lumbar Flexion: Moderate limitation Lumbar Extension: Major limitation;Increased pain Lumbar R Side-Bend: Minimal limitation;Increased pain Lumbar L Side-Bend: Minimal limitation;Increased pain Lumbar R Rotation: Moderate limitation Lumbar L Rotation: Moderate limitataion Repeated Test Movements - Lumbar RFIS - Symptoms During: increases RFIS - Symptoms After: no worse KARAN - Symptoms During: increases KARAN - Symptoms After: worse RFIL - Symptoms During: increases RFIL - Symptoms After: no worse Static Testing - Lumbar Sit Slouched: better Sit Erect: worse LE AROM L Hip Flexion: 90 Degrees LE Strength R LE Strength: 5/5 L LE Strength: 3/5 , gives way with testing Functional Strength Functional Strength: Sit to stand independently Education: Education Learning Preferences: Demonstration;Explanation;Performance;Printed Materials Barriers: None Learning/educational needs: Home exercise program;Plan of Care Education Provided: Yes, see treatment interventions for education provided Education Provided To: Patient;Caregiver Education Mode/Type: Demonstration;Explanation/Discussion;Literature/Printed Materials;Performance Response to Education/Teach Back: States/Identifies TREATMENT: Evaluation Therapeutic Exercise: 1: seated yellow scapular retraction 1x10 2: dynamic stabilizatition with perturbation front 1x10 3: heel slides seated 1x10 B 4: hip flexion 1x3 5: LAQ 1x2 6: ankle DF 1x2 Skilled Intervention: Patient was educated in proper exercise technique and purpose for exercises. Skilled judgment was provided in selection of appropriate interventions. Provided written instruction for home exercise program to facilitate proper performance and compliance. Correct performance of therapeutic exercises was facilitated with verbal and visual cuing. Educated patient on rationale for performing exercises in regards to ROM and function Billing: [facility]: Evaluation - Moderate Complexity (01529) Therapeutic Exercise (94441): 1:1 time: 25 minutes (2 units: 23-37 mins) Total time: 25 minutes Elizabeth Trotter, PT CTA ABD/PELV W IVCON Observed: 10/08/2017 Status: F Source: [place] 9:44 AM [facility] [place] REPOSITORY * * *Final Report* * * DATE OF EXAM: Oct 08 2017 9:44AM [facility] 0311 - CTA ABD/PELV W IVCON / PROCEDURE REASON: Abdominal aortic aneurysm, without rupture * * * * Physician Interpretation * * * * CT ANGIOGRAM OF THE ABDOMEN AND PELVIS HISTORY: 57-year-old female lumbar spine MRI demonstrated a 3 cm vascular lesion along the midline in the presacral soft tissue concerning for aneurysm. TECHNIQUE: High-resolution contrast-enhanced helical CT of the abdomen and pelvis was performed, timed to the arterial phase. 3- D processing was performed by the physician on an independent work station, with MIP and volume-rendering techniques. Total of 120 ml of Omnipaque 350 was injected IV during the examination. The study was performed without oral contrast. The patient tolerated the injection without complications. Dose-Length Product (DLP): 1081 mGy*cm. CT Dose Reduction Employed: Automated exposure control (AEC) RESULT: COMPARISON: MRI lumbar spine without and with IV contrast 09/24/2017. ABDOMEN: Images of the aorta demonstrate diffuse atherosclerotic change without significant focal stenosis or aneurysm. Celiac artery demonstrates no significant focal stenosis. Superior mesenteric artery demonstrates no significant focal stenosis. Inferior mesenteric artery demonstrates no significant focal stenosis. There is a single right renal artery. Right renal artery demonstrates no significant focal stenosis. There is a single renal vein which is patent. There are two left renal arteries. Left main and accessory renal arteries demonstrate no significant focal stenosis. There is a single renal vein which is patent. RIGHT LEG: Right common iliac artery is widely patent with no significant stenosis. Right external iliac artery is widely patent with no significant stenosis. Right internal iliac artery is widely patent with no significant stenosis. Right common femoral artery is widely patent with no significant stenosis. LEFT LEG: Left common iliac artery is widely patent with no significant stenosis. Left external iliac artery is widely patent with no significant stenosis. Left internal iliac artery is widely patent with no significant stenosis. Left common femoral artery is widely patent with no significant stenosis. There are 2 small masses in the midline upon S2 best seen axial 120 through 127 of sequence 5. The largest one left para midline measures approximately 2.3 cm and the smaller right paramidline measures approximately 1.5 cm. The larger round mass corresponds to abnormality was reported on the MRI. These structures demonstrate homogeneous intensity similar to a adjacent tortuosity internal iliac veins and appears to be in continuation with these veins. NONVASCULAR FINDINGS: Images through the lung bases demonstrate a 5 mm nodule in the lateral aspect right lower lobe image 1/ SE 5. Patchy centrilobular opacities in the lingular segment with subtle bronchial wall thickening and nodularity. No pleural effusion. Avidly enhancing lesion in the posterior aspect right hepatic lobe image 46/SE 5 most probably a hemangioma. Liver otherwise unremarkable. Pancreas, spleen, bilateral adrenal glands, right kidney, and left kidney are unremarkable. Gallbladder is surgically absent. No evidence of biliary ductal dilatation. The unopacified small bowel and colon demonstrate nonspecific appearance. Sigmoid diverticulosis with no imaging findings suspect acute diverticulitis. There are no enlarged lymph nodes. There is no significant free fluid. Uterus is not visualized. Adnexal regions are unremarkable. Tiny periumbilical hernia containing fat. Small fat-containing right inguinal hernia. Visualized bony structures are unremarkable. IMPRESSION: ABDOMINAL AORTA AND ITS GREAT BRANCHES ARE NORMAL IN CALIBER WITHOUT SIGNIFICANT ATHEROSCLEROTIC CHANGES OR FOCAL STENOSIS. A 2.3 CM ROUND LEFT AND 1.7 CM OVAL RIGHT PARA MIDLINE MASSES UPON THE S2 ALONG THE COURSE OF TORTUOUS INTERNAL ILIAC VEINS. THE ROUNDED MASS CORRESPONDS TO THE FINDINGS ON THE RECENT MRI. 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 1.7 CM AVIDLY ENHANCING RIGHT HEPATIC LOBE LESION, MOST COMPATIBLE WITH A FLASH HEMANGIOMA. 5 MM NONCALCIFIED SOLID RIGHT LOWER LOBE NODULE. [employer] RECOMMENDATIONS FOR FOLLOW-UP OF SMALL LUNG NODULES DETECTED INCIDENTALLY ON CT (PATIENTS ? 35 YEARS OF AGE) >4 ? 6 MM ? LOW-RISK PATIENT: HIGH-RISK PATIENT CT AT [address] AT 6-12 MONTHS IF STABLE, NO FURTHER FOLLOW-UP ? IF STABLE, REPEAT CT AT 18-24 MONTHS PATCHY CENTRILOBULAR OPACITIES IN THE LINGULAR SEGMENT WITH SUBTLE BRONCHIAL WALL THICKENING AND NODULARITY, NONSPECIFIC AND COULD BE DUE TO INFECTIOUS OR INFLAMMATORY BRONCHIOLITIS. THIS FINDING CAN BE REACCESSED AT THE TIME OF FOLLOW-UP CT. [employer]: PSCB Transcribe Date/Time: Oct 08 2017 11:09A Dictated by : ARCELIA KHAN MD This examination was interpreted and the report reviewed and electronically signed by: ARCELIA KHAN MD on Oct 09 2017 4:48PM EST [id number] CNTHERAPY Observed: 10/08/2017 Status: COMPLETED Source: [place] 9:30 AM [facility] REPOSITORY OT/PT/Speech Visit (PTWS) YUNIER PATIÑO ([id number]) 1960 F Date Time Provider Department 10/08/17 9:30 AM ELIZABETH TROTTER (PT) PTWS Date Time Provider Department Center 10/08/2017 9:30 AM [id number], LISA (PT) PTWS [facility] ALIYAH Reason for Visit: PT Eval [747] Patient Education [91] Primary Visit Diagnosis:Chronic bilateral low back pain with bilateral sciatica [M54.42, M54.41, G89.29] Allergies As of Date: 10/08/2017 Noted Allergy Reaction LAGUNA 06/08/2012 7 - Swelling CIPROFLOXACIN 12/17/2015 14 - Other: See Comments Comments: Chest tightness DUST 06/08/2012 7 - Swelling INSECT PARTS 03/26/2016 7 - Swelling 12 - Shortness of Breath 17 - Myalgia Comments: Pt not sure what bit her but developed redness,difficulty swallowing and swelling of face and neck MORPHINE 06/08/2012 11 - Vomiting POLLEN 06/08/2012 7 - Swelling Date Reviewed: 10/05/2017 Reviewed by: Mago Campo Ct - Fully Assessed Prescriptions as of 10/08/2017 Sig: NAPROXEN 500 MG TABLET Take 1 tablet by mouth twice * GABAPENTIN 100 MG CAPSULE Take 1 capsule by mouth twice* CYCLOBENZAPRINE 10 MG TABLET Take 1 tablet by mouth every * LEVOTHYROXINE 50 MCG TABLET Take 1 tablet by mouth once d* ALBUTEROL SULFATE HFA 90 MCG/* Inhale 2 Puffs as instructed * PANTOPRAZOLE 40 MG TABLET,DEL* Take 1 tablet by mouth daily * ALBUTEROL INHALATION Inhale as instructed. SUMATRIPTAN 100 MG TABLET One table by mouth with onset* EPINEPHRINE 0.3 MG/0.3 ML INJ* Inject 0.3 mL intramuscularly* Progress Notes: Elizabeth Trotter, PT 10/08/2017 1:13 PM Signed Episode Visit Count: 1 Therapist That Will Oversee The Plan Of Care: Elizabeth Trotter Start of Care Date: 10/08/17 Onset Date: 09/07/17 Patient Identified by Name and Date of : Yes REHABILITATION AND SPORTS THERAPY PHYSICAL THERAPY EVALUATION PLAN OF CARE: Assessment: Yunier Patiño presents with the chief complaint of bilateral low back pain with LE sx as well left greater than right . Pt using wheeled walker with forward flexed posture. She presents with impairments of decreased ROM/ strength and functional status. She may benefit from skilled therapy services to improve pain and functional status. Low Back Pain Subgroup Classification Low Back Pain Subgroup Classification: Graded activity subgroup: recommended visits 12. Graded Activity Subgroup Classification based on: exam findings suggestive of central sensitization;disproportionate pain Prognosis: Fair Fair due to: clinical presentation Goals for Episode of Care: created on 10/08/17 through 11/08/17 Independent in home exercises. Patient will decrease pain rating by 2 points to meet minimal clinical important difference for numeric pain rating scale. Restore pain-free lumbar ROM to only mild limitations to allow for improved functional status Stand / Walk without walker without pain/symptoms increased. Patient will be able to tolerate functional activities without increased symptoms. Patient will be able to correct postural deviations independently in order to allow for maintenance of proper alignment , improve postural alignment of trunk during functional activities and allow for normal mechanics. Planned Interventions, Frequency, and Duration: Current Frequency: 1x/week Duration: 4 weeks Total Number of Visits Planned: 4 Patient to be see for Planned Treatment Interventions: Therapeutic exercise;Manual therapy;Self-long-term management;Patient/Family/Caregiver Education PLAN FOR NEXT VISIT: Will upgrade ROM and strengthening exs as tolerated. work on postural correction Patient demonstrates good understanding of plan of care and treatment. The above goals and plan of care were discussed and agreed upon by patient/family. SUBJECTIVE: Yunier Patiño is a 57 year old female seen today for bilateral low back pain. states hands and feet go tingling, feet legs feel like they go numb. This happens about 6-7 times per day. Episodes last about 20 minutes. 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 Home Environment Patient Lives With: Family Equipment Owned: Wheeled Walker;Cane ( used this to the 07 September) Spine History Symptoms Location at Onset: Back Symptoms Since Onset: Unchanged Pain is Worse Always: Standing;Walking Pain is Better Sometimes: ( recliner on left side) Previous Episodes: No Sleeping Position: Side lying left Sleep Affected by Pain: Pain keeps from falling asleep;Pain awakens Red Flags Vertebral Fracture Red Flags: Female Abdominal Aortic Aneurysm Red Flags: ( being evaluated with CT scan today regarding Aneurysm) Abdominal Aortic Aneurysm Clinical Reasoning: Proceed with caution Cauda Equina Syndrome Red Flags: ( none) Pain Score: 5/10 Pain Location: Low Back/Lumbar Spine - Left;Low Back/Lumbar Spine - Right Description: Aching Frequency: Continuous Post Treatment Pain Score: No Change Pain Location: Low Back/Lumbar Spine - Left;Low Back/Lumbar Spine - Right Post Treatment Pain Description: Throbbing OBJECTIVE MEASURES WITH LEVEL OF FUNCTION: Posture / Alignment Posture: ( Forward flexed position) Lumbo - Pelvic Alignment: ( decreased WB of left LE) Effects of Posture Correction: increased pain Gait Assessment Weight Bearing Status: FWB Gait: Independent Gait Device: Front-wheeled Walker Gait Deviations: Left Lower Extremity Gait Deviations Left Lower Extremity: Heel strike during initial stance decreased;Push-off during terminal stance decreased ( cresencio left LE ) Spine Observations Spine presents with: hypersensitivity Spine Palpation R Lumbar Spine Palpation Tenderness: Paraspinals;Spinous Process L Lumbar Spine Palpation Tenderness: Paraspinals;Spinous Process Lumbar Spine AROM Lumbar Flexion: Moderate limitation Lumbar Extension: Major limitation;Increased pain Lumbar R Side-Bend: Minimal limitation;Increased pain Lumbar L Side-Bend: Minimal limitation;Increased pain Lumbar R Rotation: Moderate limitation Lumbar L Rotation: Moderate limitataion Repeated Test Movements - Lumbar RFIS - Symptoms During: increases RFIS - Symptoms After: no worse KARAN - Symptoms During: increases KARAN - Symptoms After: worse RFIL - Symptoms During: increases RFIL - Symptoms After: no worse Static Testing - Lumbar Sit Slouched: better Sit Erect: worse LE AROM L Hip Flexion: 90 Degrees LE Strength R LE Strength: 5/5 L LE Strength: 3/5 , gives way with testing Functional Strength Functional Strength: Sit to stand independently Education: Education Learning Preferences: Demonstration;Explanation;Performance;Printed Materials Barriers: None Learning/educational needs: Home exercise program;Plan of Care Education Provided: Yes, see treatment interventions for education provided Education Provided To: Patient;Caregiver Education Mode/Type: Demonstration;Explanation/Discussion;Literature/Printed Materials;Performance Response to Education/Teach Back: States/Identifies TREATMENT: Evaluation Therapeutic Exercise: 1: seated yellow scapular retraction 1x10 2: dynamic stabilizatition with perturbation front 1x10 3: heel slides seated 1x10 B 4: hip flexion 1x3 5: LAQ 1x2 6: ankle DF 1x2 Skilled Intervention: Patient was educated in proper exercise technique and purpose for exercises. Skilled judgment was provided in selection of appropriate interventions. Provided written instruction for home exercise program to facilitate proper performance and compliance. Correct performance of therapeutic exercises was facilitated with verbal and visual cuing. Educated patient on rationale for performing exercises in regards to ROM and function Billing: [facility]: Evaluation - Moderate Complexity ([id number]) Therapeutic Exercise (66892): 1:1 time: 25 minutes (2 units: 23-37 mins) Total time: 25 minutes Elizabeth Trotter PT PROGRESS Observed: 09/29/2017 Status: COMPLETED Source: [place] 10:08 AM [facility] REPOSITORY HNO ID: [id number] Author: Aarti Sotelo ([employer]) Service: (none) Author Type: Nurse Practitioner Type: Progress Notes Filed: 09/29/2017 10:12 AM Note Text: HPI/CC: Yunier Patiño is a 57 year old female who presents for MRI results; review FCE results. Patient continues to have lower back pain, walking with a walker. Completed functional capacity test- unable to complete some aspects d/t pain. Reviewed MRI and FCE with patient and mother. IMPRESSION: Mild degenerative changes in the lower lumbar spine with mild left neural foraminal stenosis at L4-L5 from degenerative disc disease. ?No high-grade canal or neural foraminal stenosis. 3.0 cm vascular lesion along the midline in the presacral soft tissues ventral to S2 with mild bony remodeling, which may represent an aneurysm. ?This can be further evaluated with dedicated CTA imaging if clinically indicated. Indeterminate 5 mm lesion in the T11 vertebral body, which is too small to characterize but may represent a small atypical intraosseous hemangioma. No pathologic intradural enhancement. ROS as above, otherwise non-contributory. Reviewed PMHx, PSHx, social Hx, medications and allergies. PHYSICAL EXAMINATION: BP 112/82 Pulse 80 Resp 16 Wt 97.5 kg (215 lb) BMI 35.78 kg/m? General appearance: Well appearing, alert, in no acute distress, well-hydrated, well nourished. Skin: Skin color, texture, turgor normal, no suspicious rashes or lesions ASSESSMENT/PLAN: 1. Chronic midline low back pain without sciatica - ICD9: 724.2, 338.29, ICD10: M54.5, G89.29 (primary diagnosis) Mechanical low back pain - NSAIDS- see orders - PT consult - CONSULT TO PHYSICAL THERAPY - NAPROXEN 500 MG TABLET - GABAPENTIN 100 MG CAPSULE 2. Abdominal aortic aneurysm without rupture (HCC) - ICD9: 441.4, ICD10: I71.4 - CTA ABD/PEL WO/W IVCON - IV CONTRAST (RADIOLOGY PROCEDURE) 3. Spinal stenosis of lumbar region, unspecified whether neurogenic claudication present - ICD9: 724.02, ICD10: M48.061 - CONSULT TO SPINE CENTER -f/u with PCP CALEB Callejas Observed: 09/29/2017 Status: COMPLETED Source: [place] 8:20 AM [facility] REPOSITORY Office Visit (FAMPWS) YUNIER PATIÑO ([id number]) 1960 F Date Time Provider Department 09/29/17 8:20 AM [facility] your visit today, we recorded the following information about you: Pulse Respiration Blood pressure Weight 80/minute 16/minute 112/82 97.5 kg Aarti Sotelo (Nanci) 09/29/2017 10:12 AM Signed HPI/CC: Yunier Patiño is a 57 year old female who presents for MRI results; review FCE results. Patient continues to have lower back pain, walking with a walker. Completed functional capacity test- unable to complete some aspects d/t pain. Reviewed MRI and FCE with patient and mother. IMPRESSION: Mild degenerative changes in the lower lumbar spine with mild left neural foraminal stenosis at L4-L5 from degenerative disc disease. ?No high-grade canal or neural foraminal stenosis. 3.0 cm vascular lesion along the midline in the presacral soft tissues ventral to S2 with mild bony remodeling, which may represent an aneurysm. ?This can be further evaluated with dedicated CTA imaging if clinically indicated. Indeterminate 5 mm lesion in the T11 vertebral body, which is too small to characterize but may represent a small atypical intraosseous hemangioma. No pathologic intradural enhancement. ROS as above, otherwise non-contributory. Reviewed PMHx, PSHx, social Hx, medications and allergies. PHYSICAL EXAMINATION: BP 112/82 Pulse 80 Resp 16 Wt 97.5 kg (215 lb) BMI 35.78 kg/m? General appearance: Well appearing, alert, in no acute distress, well-hydrated, well nourished. Skin: Skin color, texture, turgor normal, no suspicious rashes or lesions ASSESSMENT/PLAN: 1. Chronic midline low back pain without sciatica - ICD9: 724.2, 338.29, ICD10: M54.5, G89.29 (primary diagnosis) Mechanical low back pain - NSAIDS- see orders - PT consult - CONSULT TO PHYSICAL THERAPY - NAPROXEN 500 MG TABLET - GABAPENTIN 100 MG CAPSULE 2. Abdominal aortic aneurysm without rupture (HCC) - ICD9: 441.4, ICD10: I71.4 - CTA ABD/PEL WO/W IVCON - IV CONTRAST (RADIOLOGY PROCEDURE) 3. Spinal stenosis of lumbar region, unspecified whether neurogenic claudication present - ICD9: 724.02, ICD10: M48.061 - CONSULT TO SPINE CENTER -f/u with PCP Aarti Sotelo APRN.[employer] Referring Provider: SELF [200] Allergies As of Date: 09/29/2017 Noted Allergy Reaction LAGUNA 06/08/2012 7 - Swelling CIPROFLOXACIN 12/17/2015 14 - Other: See Comments Comments: Chest tightness DUST 06/08/2012 7 - Swelling INSECT PARTS 03/26/2016 7 - Swelling 12 - Shortness of Breath 17 - Myalgia Comments: Pt not sure what bit her but developed redness,difficulty swallowing and swelling of face and neck MORPHINE 06/08/2012 11 - Vomiting POLLEN 06/08/2012 7 - Swelling Date Reviewed: 09/29/2017 Reviewed by: Aarti Sotelo ([facility]) - Fully Assessed Reason for Visit: Recheck [92] Cmt: MRI results; review FCE results Primary Visit Diagnosis:Chronic midline low back pain without sciatica [M54.5, G89.29] Other Visit Diagnoses:Abdominal aortic aneurysm without rupture (HCC) [I71.4] Spinal stenosis of lumbar region, unspecified whether neurogenic claudication present [M48.061] Order(s):CONSULT TO PHYSICAL THERAPY [9032] Order #: [id number]: 1 CTA ABD/PEL WO/W IVCON [[id number]] Order #: [id number] FUTURE iv contrast (will be provided with radiology test)CTA ABD/PEL - No IV access, insert saline lock prior to the sedation, infusion, injection for imaging exam. Discontinue saline lock post exam. If Pt. has a central line or IVAD, may access for administration according to line specific nursing protocol. Once exam is complete flush line and de-access according to line specific nursing protocol in the CT contrast administration guidelines link.Disp: 1 EachRfl: 0 naproxen (NAPROSYN) 500 mg tabletTake 1 tablet by mouth twice daily as needed (for pain/inflammation). Take with food.Disp: 60 tabletRfl: 2 gabapentin (NEURONTIN) 100 mg capsuleTake 1 capsule by mouth twice daily for 90 days.Disp: 180 capsuleRfl: 0 CONSULT TO SPINE CENTER [[id number]] Order #: [id number]: 1 Prescriptions as of 09/29/2017 Sig: CYCLOBENZAPRINE 10 MG TABLET Take 1 tablet by mouth every * LEVOTHYROXINE 50 MCG TABLET Take 1 tablet by mouth once d* ALBUTEROL SULFATE HFA 90 MCG/* Inhale 2 Puffs as instructed * PANTOPRAZOLE 40 MG TABLET,DEL* Take 1 tablet by mouth daily * ALBUTEROL INHALATION Inhale as instructed. SUMATRIPTAN 100 MG TABLET One table by mouth with onset* EPINEPHRINE 0.3 MG/0.3 ML INJ* Inject 0.3 mL intramuscularly* IV CONTRAST (RADIOLOGY PROCED* CTA ABD/PEL - No IV access, i* NAPROXEN 500 MG TABLET Take 1 tablet by mouth twice * GABAPENTIN 100 MG CAPSULE Take 1 capsule by mouth twice* Problem List As Of Date 09/29/2017 Noted Resolved Migraine without aura and without status migrai* Priority: A More... More... Acquired hypothyroidism [E03.9] INVALID FOR* Priority: A More... More... Encounter for screening for diabetes mellitus [*INVALID FOR* Encounter for screening for cardiovascular diso*INVALID FOR* Encounter for gynecological examination without*INVALID FOR* Priority: E More... Chronic obstructive pulmonary disease (HCC) [J4*INVALID FOR* Priority: B More... Hemorrhoids, internal, with bleeding [K64.8] INVALID FOR* Priority: C Well adult exam [Z00.00] INVALID FOR* Priority: E More... Prolapsed internal hemorrhoids [K64.8] INVALID FOR* More... Prescriptions ordered this encounter Disp Refills Start End IV CONTRAST (RADIOLOGY PROCEDURE) 1 Ea* 0 09/29/2017 09/30/2017 Class: In Office Sig: CTA ABD/PEL - No IV access, insert saline lock prior to the sedation, infusion, injection for imaging exam. Discontinue saline lock post exam. If Pt. has a central line or IVAD, may access for administration according to line specific nursing protocol. Once exam is complete flush line and de-access according to line specific nursing protocol in the CT contrast administration guidelines link. NAPROXEN 500 MG TABLET 60 t* 2 09/29/2017 Route: ORAL Sig: Take 1 tablet by mouth twice daily as needed (for pain/inflammation). Take with food. GABAPENTIN 100 MG CAPSULE 180 * 0 09/29/2017 12/28/2017 Route: ORAL Sig: Take 1 capsule by mouth twice daily for 90 days. Medications Discontinued During This Encounter ibuprofen (MOTRIN) 800 mg tablet 20 t* 1 09/08/2017 09/29/2017 Class: Print RX Route: ORAL Sig: Take 1 tablet by mouth every 8 hours as needed (for pain). Disc: Reason for discontinue is not on file. predniSONE (DELTASONE) 10 mg tablet 21 t* 0 09/09/2017 09/29/2017 Sig: Take 40 mg x 3 days, 20 mg x 3 days, 10 mg x 3 days. Take with food, once daily Disc: Reason for discontinue is not on file. Encounter Status:Closed by AARTI SOTELO CNP on 09/29/17 OT FCE D/C SUMMARY Observed: 09/25/2017 Status: F Source: [place] 8:[address] [facility] REPOSITORY [facility] Occupational Therapy Health[address] [place] [address] Fax REHABILITATION SERVICES DISCHARGE SUMMARY MR#: [id number] Acct: [id number] Name: YUNIER PATIÑO Rep #: [id number] : 1960 57 From: Ofelia Fernández Referring DrShahzad: POLY Sotelo Status: REG RCR Eval Date: Discharge Date: FCE D/C Summary - Discharge YUNIER PATIÑO was seen for a one time visit for an FCE on 09/24/17 and is discharged. <Electronically signed by Ofelia Fernández > 09/25/17 0855 CC: POLY Sotelo; Hany Cota MD [facility] Signed OT FUNCTIONAL CAPACITY Observed: 09/25/2017 Status: F Source: [facility] 8:[address] [facility] REPOSITORY [facility] Occupational Therapy [facility] [address] [place] [address] Fax REHABILITATION SERVICES INITIAL EVALUATION MR#: [id number] Acct: [id number] Name: YUNIER PATIÑO Rep #: [id number] : 1960 57 From: Ofelia Fernández Referring Dr.: POLY Sotelo Status: REG RCR Insurance: ANTHEM Eval Date: SELF PAY INSURANCE HP OT Functional Capacity Eval - Task Lift Floor (Occasional 1-33% of Day): negligible Floor (Frequent 34-66% of Day): negligible Floor (Constant 67-100% of Day): negligible Floor PDL: Sedentary Knee (Occasional 1-33% of Day): negligible Knee (Frequent 34-66% of Day): negligible Knee (Constant 67-100% of Day): negligible Knee PDL: Sedentary Waist (Occasional 1-33% of Day): negligible Waist (Frequent 34-66% of Day): negligible Waist (Constant 67-100% of Day): negligible Waist PDL: Sedentary Shoulder (Occasional 1-33% of Day): negligible Shoulder (Frequent 34-66% of Day): negligible Shoulder (Constant 67-100% of Day): negligible Shoulder PDL: Sedentary Overhead (Occasional 1-33% of Day): negligible Overhead (Frequent 34-66% of Day): negligible Overhead (Constant 67-100% of Day): negligible Overhead PDL: Sedentary Comments: Pain is significant. She is unable to complete at this time. Further FCE testing would be benefical after MRI to ensure spinal integrity and after pain management program has been implemented. Pain is limiting all fucntional tasks at this time. - Work Activity/Posture Bending: Occasional Ability (1-33% of day) Squatting: No Ablility (0% of day) Kneeling: No Ablility (0% of day) Reaching up: Occasional Ability (1-33% of day) Sitting: Frequent Ability (34-66% of day) Walking: Occasional Ability (1-33% of day) Comments: 20-33% Standing: Occasional Ability (1-33% of day) Comments: 10-20% - Reference Duration Sedentary Sedentary Light Light Light Medium Medium Medium Heavy V cyn Heavy Heavy - Patient Information Height: 1.65 m Weight:: 202 kg Hand Dominance: R - Medical History Medical History Including Restrictions: Pt. notes no medical restrictions at this time. - Diagnoses Diagnoses: PMHx: hemorrhoid surgery July, gallbladder in May 2016, CTS release, hysterectomy (1994), COPD, asthma. Current: Had second hemorrhoid surgery is intestine resection in July 282017. - Symptoms Symptoms: Pt. noted that 'tenderness of tailbone' at end of August after hemorrhoid surgery. Got checked out by doctor by Dr. Patel. She noted released to go back to work September 07. Went to ER in [place] that night due to excruciating pain. Symptoms now include pain in low back. Notes that she feels 'like pulsations in legs and I know I need to sit quick. Notes unable to feel shot injected in back at ER or band aid that they place on low back. - Pain Pain: Pt. rated pain 6/10 in seated position. 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 Reports lifting requirements between 30-50 lbs. 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 report being 50 lbs. 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 - Behavioral Behavioral: Did not take any pain pills prior to FCE. Consistently educated to complete within pain tolerated. Emotional with increase in pain. Grimace and winces noted throughout tasks. Educated to complete within pain tolerance. Stated I would rather be working that going through this. I like work. - ADLS ADLS: Pt. lives in house with mother. She noted 2 steps to get front door but handrails and posts that she uses instead. Once in home it is FFSU or everything. She noted she does not go upstairs and noted tried to go down to basement last night and fell needing mother to get back up on feet. Approximately 15-16 steps to base and same to get to second level. She sleeps in recliner due to COPD. She is completing ADLs (I). She is mod I for bathing as noted she is using shower chair for bathing tasks as difficulty to standing is shower. She is unable to complete grocery shopping at this time. She noted she normally cooks and cleans but is unable to complete cooking at this time secondary to pain. She has dog in which mother is helping to care for at this time. - Physical Examination Physical Examination: Pt. arrived with FCE on this date. She has MRI scheduled after FCE. All tasks completed within pain limit. Worked on joint integrity during tasks she could participate in to help decrease pain. Pt. noted that she had to complete FCE prior to MRI due to insurance claims. OT educated this may be more beneficial after MRI as she appeared to be in significant pain. She noted she wanted to continue. Would recommend having another FCE when pain is under control and has increased functional activity tolerance. Pain is significantly limiting ability to complete all functional tasks. She would benefit from further follow up with doctor and potentially PT for management of back pain. ROM: B UE: WFL, increased pain in back with internal rotation. B LE: Pain is limiting at this time. She is unable to complete ROM from standing position as she reports significant pain. Able to assume 90 hip flexion, WNL of knee flexion, and WNL of dorsiflexion from seated position and heels resting on floor. Verbalized increased pain in L LE. Strength: B UE: Deltoid: R 3+/5, L 3/5. bicep: R 4/5, L 4/5. triceps: R 3+/5, L 3/5- increased pain as explianed it's pushing me back into chair. BLE: . Able to lift foot off foot but unable to take resistance or hip flexion on B side with L being worse gopi R.MMT R -3/5, L -3/5. Quadracep: R 3/5, L -3/5. Hamstring: R 3/5, L -3/5. Dorsiflexion: R 3/5, L -3/5. PlantarFlexion: R 3/5, L -3/5. Signficiant pain and compensations with trying to assume testing psoition from seated positions. Emotional at end of task due to pain. Pain gillette increased to 7/10 pain. Right Coper Hand Strength Average: 45.33 Right Coper Hand Strength Percentile: 5 Left Coper Hand Strength Average: 31.33 Left Coper Hand Strength Percentile: below 10th Right Lateral Pinch Average: 11.00 Right Lateral Pinch Percentile: aboev 25th below 50th Left Lateral Pinch Average: 11.66 Left Lateral Pinch Percentile: 50th Right Tripod Pinch Average: 11.33 Right Tripod Pinch Percentile: 50th Left Tripod Pinch Average: 8.66 Left Tripod Pinch Percentile: 25th Sensation: Sensation is WFL in hands. Increased numbness and tingling in feet all the time since increased symptoms of low back pain. Fine Motor: Intact and WFL. Balance: Poor without w/w or external support. She reports not having used a w/w prior to recent back injury. Since time of back injury she noted she has been unable to walk due to significant pain. Increased trunk flexion when asked to not use hand on w/w. Increased grimace and wincing noted. Pain appears significant at this time. - Non Material Handling Activities Bendinx with poor body mechanics and decreased speed. Able to assume 90-100 degrees hip flexion from standing position. Needed external support of legs. Pain increased to 8/10. Winces and grimaces noted. Pain significantly limiting at this time. Squatting: Refused due to inability at this time. Refused secondary to pain. Pain appears limiting at this time. Kneeling: Unable at this time. Not attempted due to safety concerns. Reaching out/up: From seated position: reaching out: 3x, 5x, unable to continue due to pain. Pain 8/10. From seated position: reaching up: 3x, 6x, unable to continue due to pain. Pain 8/10. Pain significantly limiting at this time Walking: Completed fx mobility with w/w from lobby to OT with 1x seated break for 1 mins. Previously did not use w/w prior to back pain. Walked from OT to stair area with need for 4 breaks and able to handle 2 mins at a time prior to need for break. As walking tasks continued she exhibited increased L foot lag with gait. Required w/c escort to leave facility as pain was limiting function. Standing: Less than a minute. Approximately 2 mins with dynamic tasks. Increased pain with all standing tasks and refused to complete static standing activity any longer due to pain. Pain is limiting at this time. Sittin-60 mins with weight shifts and compensations as needed. Notes most comfortable position is seated in reclined in chair. Climbing Stairs: Completed 4 stairs only, with increased reliance of B UE and use of B handrails. She completed with R foot lead. Increased L foot lag. Increased grimance throughout task. Appears to be significant pain. - Dynamic Occasional Lifting Capacity Floor Lift: Unable to complete at this time. Pain significantly limiting. Knee Lift: Unable to complete at this time. Pain significantly limiting. Waist Lift: Unable to complete at this time. Pain significantly limiting. Shoulder Lift: Unable to complete at this time. Pain significantly limiting. Overhead Lift: Unable to complete at this time. Pain significantly limiting. Carrying: Unable to complete at this time. Pain significantly limiting. <Electronically signed by Ofelia Fernández > 09/25/17 0855 CC: POLY Sotelo; Hany Cota MD [facility] Signed For Medicare only, by signing this I certify the plan of care. Physicians Signature Date MRI LUMBAR SPINE Observed: 09/24/2017 Status: F Source: [place] WO/W IVCON 2:48 PM [facility] * * *Final Report* * * DATE OF EXAM: Sep 24 2017 2:48PM [facility] 0304 - MRI LUMBAR SPINE WO/W IVCON / PROCEDURE REASON: multiple diagnoses * * * * Physician Interpretation * * * * EXAMINATION: MRI LUMBAR SPINE WO/W IVCON HISTORY: Acute midline low back pain into left leg. TECHNIQUE: Routine lumbosacral spine MR protocol without gadolinium. MQ: [id number] COMPARISON: None. RESULT: Counting reference: Lumbosacral junction. For the purposes of this report, L5-S1 is considered the last lumbar type disc space and L4-5 is considered the level of the iliac crest. Alignment: Alignment is anatomic. Mild to moderate degenerative disc space narrowing and disc desiccation from L2-S1. Bone marrow signal/fracture: Mild type II signal degenerative endplate marrow changes in the L3-L4 and L4-L5 endplates. 5 mm lesion within the T11 vertebral body with T1 hypointensity and increased signal on inversion recovery with mild enhancement it is too small to characterize but may be an atypical intraosseous hemangioma. T1 and T2 hypointense lesion without associated enhancement in the dorsal L1 likely represents a bone island. No evidence of other pathologic marrow infiltration. No evidence of prior fracture. Posterior elements are normal in morphology and alignment. Conus: The conus is within normal limits of signal intensity and morphology. No pathologic intradural intramedullary or extramedullary enhancement. Conus terminates at the L1 level. Paraspinal soft tissues: Indeterminate heterogeneously T2 hyperintense lesion in the posterior right hepatic lobe incompletely evaluated on the localizer images measures 1.8 cm in greatest dimension. There is a T1 and T2 hypointense saccular lesion in the presacral soft tissues ventral to the S2 level measuring 2.3 x 2.0 x 3.0 cm (CC, AP, TV) with mild bony remodeling of the ventral S2 vertebral body which enhances heterogeneously on postcontrast imaging. This likely represents a vascular structure and may reflect a saccular aneurysm. This can be further evaluated with CTA imaging if clinically indicated. Lower thoracic spine: Visualized lower thoracic canal and foramina are patent. T12-L1: Canal and foramina are patent. L1-L2: Canal and foramina are patent. L2-L3: Mild disc bulging with minimal canal stenosis. Bilateral neural foramina are patent. L3-L4: Mild disc bulging without significant canal stenosis. Bilateral neural foramina are patent. L4-L5: Mild disc bulging with shallow central disc protrusion and facet hypertrophy with mild left neural foraminal stenosis. Disc bulging contacts the exiting left L4 nerve root. L5-S1: Mild disc bulging with facet hypertrophy without significant neural foraminal stenosis. No canal stenosis. Sacrum and iliac wings: The visualized sacrum and iliac wings are within normal limits. IMPRESSION: Mild degenerative changes in the lower lumbar spine with mild left neural foraminal stenosis at L4-L5 from degenerative disc disease. No high-grade canal or neural foraminal stenosis. 3.0 cm vascular lesion along the midline in the presacral soft tissues ventral to S2 with mild bony remodeling, which may represent an aneurysm. This can be further evaluated with dedicated CTA imaging if clinically indicated. Indeterminate 5 mm lesion in the T11 vertebral body, which is too small to characterize but may represent a small atypical intraosseous hemangioma. No pathologic intradural enhancement. Migratory Farm Hand: ARIA Transcribe Date/Time: Sep 24 2017 3:38P Dictated by : LAINE COLEY MD This examination was interpreted and the report reviewed and electronically signed by: LAINE COLEY MD on Sep 24 2017 4:01PM EST [id number] Observed: 09/24/2017 Status: COMPLETED Source: [place] 2:44 PM [facility] REPOSITORY HNO ID: [id number] Author: Elizabeth Ocasio (Rt), [place] Service: (none) Author Type: Conventional Machinist Type: Progress Notes Filed: 09/24/2017 2:45 PM Note Text: Radiology Service Progress Note PATIENT NAME: Yunier Patiño DATE OF SERVICE: September 24, 2017 TIME: 2:44 PM PATIENT IDENTITY VERIFICATION COMPLETED USING TWO (2) METHODS: Patient confirmed name verbally and Date of . PATIENT GENDER DATA: Female. status: : No status: NO. PATIENT RELEVANT IMPLANT DATA REVIEWED: Yes CONTRAST INDUCED NEPHROPATHY RISK FACTORS: Patient age > 60 years and Not applicable CREATININE: Creatinine Date Value Ref Range Status 05/13/2016 0.69 (L) 0.70 - 1.40 mg/dL Final 03/23/2016 0.72 0.70 - 1.40 mg/dL Final 07/14/2014 0.77 0.70 - 1.40 mg/dL Final eGFR-All Other Races Date Value Ref Range Status 05/13/2016 >60 . Final Comment: eGFR (Estimated GFR) Units of measure: mL/min/1.73 meters squared eGFR is derived from the reexpressed MDRD Study equation using the following parameters: serum creatinine, age, gender and race. The creatinine assay has been calibrated to be traceable to IDMS. An eGFR <60 mL/min/1.73m2 for >3 months is consistent with chronic kidney disease. Refer to KDOQI guidelines for clinical interpretation. In patients with unstable renal function, e.g. those with acute kidney injury, the eGFR may not accurately reflect actual GFR. eGFR- Date Value Ref Range Status 07/14/2014 >60 Final P.O.C.T. RESULTS: POC done: Yes, See Lab Tab September 24, 2017 RADIOLOGIST NOTIFIED?: No ALLERGIES: Reviewed and unchanged CONTRAST ALLERGY: NO. PERIPHERAL IV ACCESS: Ambulatory: IV type: A peripheral IV was started in the Right antecubital site with a Angio cath: 22 gauge., Site assessment: Clean,Dry and Intact, Site disposition Discontinued RADIOLOGY DEPARTMENT: MR; Exam(s) Completed: Spine: Lumbar spine SIGNED BY: RT Otis September 24, 2017 2:44 PM PROGRESS Observed: 09/09/2017 Status: COMPLETED Source: [place] 11:05 AM [facility] REPOSITORY O ID: [id number] Author: Aarti Cabrera) Aileen Service: (none) Author Type: Nurse Practitioner Type: Progress Notes Filed: 09/09/2017 11:52 AM Note Text: This note was created using [employer]. Subjective Patient is a 56 year old female presenting with back pain. The history is provided by the patient and a parent. No language specialist was used. Back Pain This is a new problem. The current episode started 2 days ago. The problem occurs constantly. The problem has been gradually worsening. The pain is associated with no known injury. The pain is present in the lumbar spine and gluteal region. The quality of the pain is described as stabbing. The pain radiates to the left thigh and right thigh. The pain is at a severity of 9/10. The pain is severe. The symptoms are aggravated by bending, twisting and certain positions. Associated symptoms include numbness, leg pain, paresthesias, tingling and weakness. Pertinent negatives include no fever, no weight loss, no headaches, no abdominal pain, no abdominal swelling, no bowel incontinence, no perianal numbness, no bladder incontinence, no dysuria, no pelvic pain and no paresis. She has tried NSAIDs for the symptoms. Recent hemorrhoid surgery 6 weeks ago. Unable to tolerate standing, easier to crawl. Review of Systems Constitutional: Negative for fever and weight loss. Gastrointestinal: Negative for abdominal pain and bowel incontinence. Genitourinary: Negative for bladder incontinence, dysuria and pelvic pain. Musculoskeletal: Positive for back pain. Neurological: Positive for tingling, weakness, numbness and paresthesias. Negative for headaches. Objective BP 106/72 Pulse 80 Resp 16 Wt 95.7 kg (211 lb) BMI 35.11 kg/m2 Physical Exam Constitutional: She is oriented to person, place, and time. She appears well-developed and well-nourished. She appears distressed. HENT: Head: Normocephalic and atraumatic. Eyes: Conjunctivae are normal. Neck: Normal range of motion. Neck supple. Cardiovascular: Normal rate and regular rhythm. No murmur heard. Pulmonary/Chest: Effort normal and breath sounds normal. No respiratory distress. Musculoskeletal: Right hip: Normal. Left hip: Normal. Right knee: Normal. Left knee: Normal. Thoracic back: She exhibits tenderness and pain. Lumbar back: She exhibits decreased range of motion, tenderness, bony tenderness and pain. She exhibits no swelling, no edema, no deformity, no laceration and no spasm. Back: Right upper leg: Normal. Left upper leg: Normal. Neurological: She is alert and oriented to person, place, and time. She has normal reflexes. She displays normal reflexes. No cranial nerve deficit. She exhibits normal muscle tone. Coordination normal. ASSESSMENT/PLAN: 1. Acute midline low back pain without sciatica - ICD9: 724.2, ICD10: M54.5 (primary diagnosis) Symptoms consistent with herniated disc 2. Lumbar spine instability - ICD9: 724.9, ICD10: M53.2X6 3. Weakness of both lower extremities - ICD9: 729.89, ICD10: R29.898 4. Numbness and tingling of both legs - ICD9: 782.0, ICD10: R20.0, R20.2 Symptoms consistent with herniated disc - Prednisone burst- see orders - Muscle relaxant - MRI- see orders - KETOROLAC 30 MG/ML (1 ML) INJECTION SOLUTION - MRI LUMBAR SPINE WO IVCON - PREDNISONE 10 MG TABLET - MRI LUMBAR SPINE WO/W IVCON - IV CONTRAST (RADIOLOGY PROCEDURE) Aarti Sotelo APRN.MAKE READY MECHANIC CNOV Observed: 09/09/2017 Status: COMPLETED Source: [place] 11:00 AM [facility] REPOSITORY Office Visit (FAMPWS) YUNIER PATIÑO ([id number]) 1960 F Date Time Provider Department 09/09/17 11:00 AM AARTI SOTELO (NANCI) NOEL During your visit today, we recorded the following information about you: Pulse Respiration Blood pressure Weight 80/minute 16/minute 106/72 95.7 kg Aarti Sotelo APRN.CNP 09/09/2017 11:52 AM Signed This note was created using Content [employer]. Subjective Patient is a 56 year old female presenting with back pain. The history is provided by the patient and a parent. No language specialist was used. Back Pain This is a new problem. The current episode started 2 days ago. The problem occurs constantly. The problem has been gradually worsening. The pain is associated with no known injury. The pain is present in the lumbar spine and gluteal region. The quality of the pain is described as stabbing. The pain radiates to the left thigh and right thigh. The pain is at a severity of 9/10. The pain is severe. The symptoms are aggravated by bending, twisting and certain positions. Associated symptoms include numbness, leg pain, paresthesias, tingling and weakness. Pertinent negatives include no fever, no weight loss, no headaches, no abdominal pain, no abdominal swelling, no bowel incontinence, no perianal numbness, no bladder incontinence, no dysuria, no pelvic pain and no paresis. She has tried NSAIDs for the symptoms. Recent hemorrhoid surgery 6 weeks ago. Unable to tolerate standing, easier to crawl. Review of Systems Constitutional: Negative for fever and weight loss. Gastrointestinal: Negative for abdominal pain and bowel incontinence. Genitourinary: Negative for bladder incontinence, dysuria and pelvic pain. Musculoskeletal: Positive for back pain. Neurological: Positive for tingling, weakness, numbness and paresthesias. Negative for headaches. Objective BP 106/72 Pulse 80 Resp 16 Wt 95.7 kg (211 lb) BMI 35.11 kg/m2 Physical Exam Constitutional: She is oriented to person, place, and time. She appears well-developed and well-nourished. She appears distressed. HENT: Head: Normocephalic and atraumatic. Eyes: Conjunctivae are normal. Neck: Normal range of motion. Neck supple. Cardiovascular: Normal rate and regular rhythm. No murmur heard. Pulmonary/Chest: Effort normal and breath sounds normal. No respiratory distress. Musculoskeletal: Right hip: Normal. Left hip: Normal. Right knee: Normal. Left knee: Normal. Thoracic back: She exhibits tenderness and pain. Lumbar back: She exhibits decreased range of motion, tenderness, bony tenderness and pain. She exhibits no swelling, no edema, no deformity, no laceration and no spasm. Back: Right upper leg: Normal. Left upper leg: Normal. Neurological: She is alert and oriented to person, place, and time. She has normal reflexes. She displays normal reflexes. No cranial nerve deficit. She exhibits normal muscle tone. Coordination normal. ASSESSMENT/PLAN: 1. Acute midline low back pain without sciatica - ICD9: 724.2, ICD10: M54.5 (primary diagnosis) Symptoms consistent with herniated disc 2. Lumbar spine instability - ICD9: 724.9, ICD10: M53.2X6 3. Weakness of both lower extremities - ICD9: 729.89, ICD10: R29.898 4. Numbness and tingling of both legs - ICD9: 782.0, ICD10: R20.0, R20.2 Symptoms consistent with herniated disc - Prednisone burst- see orders - Muscle relaxant - MRI- see orders - KETOROLAC 30 MG/ML (1 ML) INJECTION SOLUTION - MRI LUMBAR SPINE WO IVCON - PREDNISONE 10 MG TABLET - MRI LUMBAR SPINE WO/W IVCON - IV CONTRAST (RADIOLOGY PROCEDURE) Aarti Sotelo APRN.MAKE READY MECHANIC Referring Provider: SELF [[id number]] Allergies As of Date: 09/09/2017 Noted Allergy Reaction LAGUNA 06/08/2012 7 - Swelling CIPROFLOXACIN 12/17/2015 14 - Other: See Comments Comments: Chest tightness DUST 06/08/2012 7 - Swelling INSECT PARTS 03/26/2016 7 - Swelling 12 - Shortness of Breath 17 - Myalgia Comments: Pt not sure what bit her but developed redness,difficulty swallowing and swelling of face and neck MORPHINE 06/08/2012 11 - Vomiting POLLEN 06/08/2012 7 - Swelling Date Reviewed: 09/09/2017 Reviewed by: Aarti Messer (Nanci) Aileen - Fully Assessed Reason for Visit: ER F/U [41] Cmt: Lizett ER dx back pain Primary Visit Diagnosis:Acute midline low back pain without sciatica [M54.5] Other Visit Diagnoses:Lumbar spine instability [M53.2X6] Weakness of both lower extremities [R29.898] Numbness and tingling of both legs [R20.0, R20.2] Order(s):ketorolac (TORADOL) 30 mg/mL (1 mL) solnInject 30 mg intramuscularly one time only for 1 dose.Disp: 1 mLRfl: 0 predniSONE (DELTASONE) 10 mg tabletTake 40 mg x 3 days, 20 mg x 3 days, 10 mg x 3 days. Take with food, once dailyDisp: 21 tabletRfl: 0 MRI LUMBAR SPINE WO/W IVCON [[id number]] Order #: [id number] FUTURE iv contrast (radiology procedure)MRI LSP Inject, intravenously, once for 1 dose. No IV access, insert saline lock prior to the beginning of sedation, infusion, injection of imaging exam. Discontinue saline lock post exam. If Pt. has a central line or IVAD, may access for administration according to line specific nursing protocol. Once exam is complete flush line and de-access according to line specific nursing protocol in the MR contrast administration guidelines link.Disp: 1 EachRfl: 0 Prescriptions as of 09/09/2017 Sig: IBUPROFEN 800 MG TABLET Take 1 tablet by mouth every * CYCLOBENZAPRINE 10 MG TABLET Take 1 tablet by mouth every * LEVOTHYROXINE 50 MCG TABLET Take 1 tablet by mouth once d* ALBUTEROL SULFATE HFA 90 MCG/* Inhale 2 Puffs as instructed * PANTOPRAZOLE 40 MG TABLET,DEL* Take 1 tablet by mouth daily * ALBUTEROL INHALATION Inhale as instructed. SUMATRIPTAN 100 MG TABLET One table by mouth with onset* EPINEPHRINE 0.3 MG/0.3 ML INJ* Inject 0.3 mL intramuscularly* KETOROLAC 30 MG/ML (1 ML) INJ* Inject 30 mg intramuscularly * PREDNISONE 10 MG TABLET Take 40 mg x 3 days, 20 mg x * IV CONTRAST (RADIOLOGY PROCED* MRI LSP Inject, intravenousl* Problem List As Of Date 09/09/2017 Noted Resolved Migraine without aura and without status migrai* Priority: A More... More... Acquired hypothyroidism [E03.9] INVALID FOR* Priority: A More... More... Encounter for screening for diabetes mellitus [*INVALID FOR* Encounter for screening for cardiovascular diso*INVALID FOR* Encounter for gynecological examination without*INVALID FOR* Priority: E More... Chronic obstructive pulmonary disease (HCC) [J4*INVALID FOR* Priority: B More... Hemorrhoids, internal, with bleeding [K64.8] INVALID FOR* Priority: C Well adult exam [Z00.00] INVALID FOR* Priority: E More... Prolapsed internal hemorrhoids [K64.8] INVALID FOR* More... Prescriptions ordered this encounter Disp Refills Start End KETOROLAC 30 MG/ML (1 ML) INJECTION * 1 mL 0 09/09/2017 09/09/2017 Class: In Office Route: INTRAMUSCULA Sig: Inject 30 mg intramuscularly one time only for 1 dose. PREDNISONE 10 MG TABLET 21 t* 0 09/09/2017 Sig: Take 40 mg x 3 days, 20 mg x 3 days, 10 mg x 3 days. Take with food, once daily IV CONTRAST (RADIOLOGY PROCEDURE) 1 Ea* 0 09/09/2017 09/10/2017 Class: In Office Sig: MRI LSP Inject, intravenously, once for 1 dose. No IV access, insert saline lock prior to the beginning of sedation, infusion, injection of imaging exam. Discontinue saline lock post exam. If Pt. has a central line or IVAD, may access for administration according to line specific nursing protocol. Once exam is complete flush line and de-access according to line specific nursing protocol in the MR contrast administration guidelines link. Encounter Status:Closed by AARTI SOTELO CNP on 09/09/17 ED NOTE Observed: 09/08/2017 Status: COMPLETED Source: [place] 1:58 AM [facility] REPOSIT[facility] HNO ID: [id number] Author: Trena PlattRn) SANJANA Karimi Service: (none) Author Type: Registered Nurse Type: ED Notes Filed: 09/08/2017 1:59 AM Note Text: Discharge inst reviewed with pt, discussed new medications x2 and follow up with pcp and ortho, pt verbalized understanding via teach back method, pt stable upon departure from ED XR LUMBAR 3V Observed: 09/08/2017 Status: F Source: [place] AP/LAT/L5-S1 12:45 AM [facility] REPOSITORY * * *Final Report* * * DATE OF EXAM: Sep 08 2017 12:45AM MDX [id number] - XR LUMBAR 3V AP/LAT/L5-S1 / PROCEDURE REASON: Back pain * * * * Physician Interpretation * * * * XR LUMBAR 3V AP/LAT/L5-S1: Indication: Back pain. Limitation to the exam: None. TECHNIQUE: AP and lateral views of the lumbar spine, and coned-down lateral view of the lumbosacral junction were obtained. COMPARISON: No previous lumbar spine study available. Chest radiographs 08/24/2017. RESULT: Counting reference: Lumbosacral junction. Alignment: Alignment is anatomic. Osseous structures/fracture: Bone mineralization appears normal. There are aplastic 12th ribs and 5 nonrib-bearing lumbar type vertebrae. There is no evidence of acute or chronic fracture or bone lesion. Soft tissues: Grossly unremarkable. Degenerative changes: None apparent. Other: Cholecystectomy clips are seen in the right upper quadrant. The sacroiliac joints are within normal. Phleboliths are seen. IMPRESSION: No lumbar spine abnormality identified. Migratory Farm Hand: IKEB Transcribe Date/Time: Sep 08 2017 1:00A Dictated by : CARIDAD SNELL MD This examination was interpreted and the report reviewed and electronically signed by: CARIDAD SNELL MD on Sep 08 2017 1:05AM EST [id number] ED PROV NOTE Observed: 09/08/2017 Status: COMPLETED Source: [place] 12:19 AM [facility] REPOSITORY HNO ID: [id number] Author: Sandra Dewey MD Service: (none) Author Type: Physician Type: ED Provider Notes Filed: 09/08/2017 1:42 AM Note Text: ED Provider Note Patient Name: Yunier Patiño SERVICE DATE: 09/07/17 History Patient presents with: Back Pain HPI Comments: Patient is a 56-year-old female coming in with back pain. Patient states that she was picking up sticks today on the yard and started developing some lower back pain. Then it became difficult to crawl to the bathroom this evening. She did have a normal bowel movement. She's never had back pain like this before she denies any pain going down her legs any numbness or tingling or loss of bowel or bladder function. Her hemorrhoid surgery over a month ago but states that is going well she was cleared to go back to work tomorrow. Patient denies any injury. History provided by: Patient PAST MEDICAL HISTORY Diagnosis Date - COPD (chronic obstructive pulmonary disease) (HCC) - GERD (gastroesophageal reflux disease) - Headache(784.0) starting 47 years old - Hypothyroidism 06/11/2012 PAST SURGICAL HISTORY Procedure Laterality Date - CHOLECYSTECTOMY 07/17/2015 - COLONOSCOP W/ OR W/O [facility] SPEC 09/13/13 few diverticula, repeat 10 yrs - EGD W/O [facility] SPECIMEN W/BX 09/13/13 gastritis - FECAL OCCULT BLOOD TEST 07/16/2017 negative - HEMORRHOIDECTOMY 07/28/2017 - LIGATION OF HEMORRHOID(S) 05/05/2016 - PAST SURGICAL HISTORY OF - PAST SURGICAL HISTORY OF breast cyst, right? - REMOVAL OF TONSILS,<14 Y/O Tonsillectomy - [facility] N/CARPAL TUNNEL SURG 05/26/12 Carpal tunnel decomp-bilateral - TOOTH EXTRACTION ~2009 all teeth extracted - TOTAL ABDOM HYSTERECTOMY 1994 [place], ovaries? menorrhagia, benign FAMILY HISTORY Problem Relation Age of Onset - Ischemic Heart Disease Father 68 [place] 72 - Prostate Cancer Father - Coronary Artery Disease Father early 50's - ischemic bowel disease [OTHER] Father ?diverticulosis - Alzheimer's Disease Maternal Grandmother - Lipids Mother - Thyroid Mother - Thyroid Sister Social History Social History Main Topics - Smoking status: Former Smoker Packs/day: 0.50 Years: 20.00 Types: Cigarettes Quit date: 05/18/2008 - Smokeless tobacco: Never Used - Alcohol use No - Drug use: No - Sexual activity: Yes Partners: Male control/ protection: Surgical ALLERGIES Allergen Reactions - Laguna Swelling - Ciprofloxacin Other: See Comments Chest tightness - Dust Swelling - Insect Parts Swelling, Shortness of Breath, Myalgia Pt not sure what bit her but developed redness,difficulty swallowing and swelling of face and neck - Morphine Vomiting - Pollen Swelling Review of Systems Constitutional: Negative for fever. Respiratory: Negative for shortness of breath. Gastrointestinal: Negative for vomiting. All other systems reviewed and are negative. Physical Exam BP 145/63 Pulse 73 Temp (Src) 98.4 (Oral) Resp 16 Ht 5' 5 (1.65m) Wt 202 lb (91.6kg) SpO2 95% BMI 33.61 kg/(m2). Physical Exam Constitutional: She appears well-developed and well-nourished. No distress. HENT: Mouth/Throat: Oropharynx is clear and moist. Neck: Neck supple. Cardiovascular: Normal rate and regular rhythm. Pulmonary/Chest: Effort normal and breath sounds normal. Abdominal: She exhibits no distension. There is no tenderness. Musculoskeletal: Back: Lower lumbar/sacral tenderness. 5/5 strength bilateral lower extremities no saddle anesthesia. Neurological: She is alert. Skin: Skin is warm and dry. Psychiatric: She has a normal mood and affect. Nursing note and vitals reviewed. Diagnostic Testing ED Labs Ordered and Reviewed - No data to display XR LUMBAR GENERAL 3V AP/LAT/L5-S1 Final Result IMPRESSION: No lumbar spine abnormality identified. Migratory Farm Hand: ARIA Transcribe Date/Time: Sep 08 2017 1:00A Dictated by : CARIDAD SNELL MD This examination was interpreted and the report reviewed and electronically signed by: CARIDAD SNELL MD on Sep 08 2017 1:05AM EST Procedures Medical Decision Making / ED Course ED Course Patient had an x-ray showing no acute abnormality. Patient was given Vicodin, motrin and Zofran and feeling better. The patient has no signs of acute cord syndrome I feel like her lumbar pain is secondary to her bending over and picking up sticks today. She'll be given anti-inflammatories as well as Flexeril for home. She is advised to follow-up with primary care return with any worsening symptoms or concerns. She received a work note for 2 days if she needs any additional she needs to follow-up with primary care. Encounter Diagnosis ICD-10-CM 1. Strain of lumbar region, initial encounter S39.012A Plan The Patient was DISCHARGED: Counseled patient and family regarding radiology results AND need for follow-up. Discharged home with verbal and written instructions. They were instructed to return as needed for persistent or worsening symptoms or any new concerns. 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 ED NOTE Observed: 09/08/2017 Status: COMPLETED Source: [place] 12:14 AM [facility] REPOSITORY HNO ID: [id number] Author: Dajuan Pizarro) SANJANA Landeros Service: (none) Author Type: Registered Nurse Type: ED Notes Filed: 09/08/2017 12:15 AM Note Text: Pt reports sudden onset non-radiating low back pain this afternoon. Pt denies incontinence, or recent fall or injury. XR CHEST 2V FRONTAL/LAT Observed: 08/24/2017 Status: F Source: [place] 1:05 PM [facility] REPOSITORY * * *Final Report* * * DATE OF EXAM: Aug 24 2017 1:05PM WOX [id number] - XR CHEST 2V FRONTAL/LAT / PROCEDURE REASON: Chronic obstructive pulmonary disease, unspecified * * * * Physician Interpretation * * * * EXAMINATION: CHEST RADIOGRAPH (2 VIEW FRONTAL and LATERAL) Clinical History: Chronic obstructive pulmonary disease, unspecified MQ: [id number] Comparison: Chest x-ray on 07/17/2015 RESULT: Lines, tubes, and devices: None. Lungs and pleura: No consolidation. No lung mass. No pleural effusion. Cardiomediastinal silhouette: Normal cardiomediastinal silhouette. Other: None. IMPRESSION: No acute radiographic abnormality. Migratory Farm Hand: PSCB Transcribe Date/Time: Aug 24 2017 6:26P Dictated by : ALONZO CHRISTIANSEN MD This examination was interpreted and the report reviewed and electronically signed by: ALONZO CHRISTIANSEN MD on Aug 24 2017 6:27PM EST [id number] PROGRESS Observed: 08/24/2017 Status: COMPLETED Source: [place] 12:53 PM [facility] REPOSITORY HNO ID: [id number] Author: All PlattRtSobia Borges Service: (none) Author Type: Conventional Machinist Type: Progress Notes Filed: 08/24/2017 1:03 PM Note Text: Radiology Service Progress Note PATIENT NAME: Yunier Patiño DATE OF SERVICE: August 24, 2017 TIME: 12:53 PM PATIENT IDENTITY VERIFICATION COMPLETED USING TWO (2) METHODS: Patient confirmed name verbally and Date of . PATIENT GENDER DATA: Female. status: : No status: NO. PATIENT RELEVANT IMPLANT DATA REVIEWED: Not Applicable RADIOLOGY DEPARTMENT: General X-ray: Exam(s) Completed: Chest X-Ray PERIPHERAL IV DATA: Not applicable SIGNED BY: RT Scout August 24, 2017 12:53 PM PROGRESS Observed: 08/24/2017 Status: COMPLETED Source: [place] 12:31 PM [facility] REPOSITORY HNO ID: [id number] Author: Cecil Rojas Service: (none) Author Type: Nurse Practitioner Type: Progress Notes Filed: 08/24/2017 12:49 PM Note Text: Chief Complaint Patient presents with: Sore Throat: x 2 days - no drainage -chills, body aches -coughing x 3 days - HPI Yunier Patiño is a 56 year old female who presents here today for Above Complaints. Patient presents to the office with complaints of a sore throat for the past 2 days. Also has a cough for the past 3 days. Denies any nasal drainage. Initially had a fever the first day and none since. Sore throat is worse in the morning and in the evening when in laying in bed. No ear pain. No nasal congestion. Cough is usually just at night, but can occur during the day intermittent. Does have some complaints of an intermittent wheeze. States that it seems as if she has some shortness of breath intermittently. Some fatigue. Mentions that her back has been abnormally sweaty. Does not think that her lymph nodes are enlarged. Does have a history of COPD. Is using albuterol rescue inhaler as prescribed. Mint lozenge has been helping with her sore throat, but has increased her reflux. No ill contacts. Has not used any OTC medications. States that she has seasonal allergies but does not take any OTC anti-histamines. Past medical history, appointments, medications, allergies reviewed. Previous Medical History PAST MEDICAL HISTORY Diagnosis Date - COPD (chronic obstructive pulmonary disease) (HCC) - Headache(784.0) starting 47 years old - Hypothyroidism 06/11/2012 Previous Surgical History PAST SURGICAL HISTORY Procedure Laterality Date - CHOLECYSTECTOMY 07/17/2015 - COLONOSCOP W/ OR W/O [facility]SH SPEC 09/13/13 few diverticula, repeat 10 yrs - EGD W/O [facility] SPECIMEN W/BX 09/13/13 gastritis - FECAL OCCULT BLOOD TEST 07/16/2017 negative - HEMORRHOIDECTOMY 07/28/2017 - LIGATION OF HEMORRHOID(S) 05/05/2016 - PAST SURGICAL HISTORY OF - PAST SURGICAL HISTORY OF breast cyst, right? - REMOVAL OF TONSILS,<14 Y/O Tonsillectomy - [facility] N/CARPAL TUNNEL SURG 05/26/12 Carpal tunnel decomp-bilateral - TOOTH EXTRACTION ~2009 all teeth extracted - TOTAL ABDOM HYSTERECTOMY 1994 [place], ovaries? menorrhagia, benign Family History FAMILY HISTORY Problem Relation Age of Onset - Ischemic Heart Disease Father 68 [place] 72 - Prostate Cancer Father - Coronary Artery Disease Father early 50's - ischemic bowel disease [OTHER] Father ?diverticulosis - Alzheimer's Disease Maternal Grandmother - Lipids Mother - Thyroid Mother - Thyroid Sister Patient Allergies ALLERGIES Allergen Reactions - Laguna Swelling - Ciprofloxacin Other: See Comments Chest tightness - Dust Swelling - Insect Parts Swelling, Shortness of Breath, Myalgia Pt not sure what bit her but developed redness,difficulty swallowing and swelling of face and neck - Morphine Vomiting - Pollen Swelling Current Medications Current Outpatient Prescriptions on File Prior to Visit: ibuprofen (MOTRIN) 800 mg tablet Take 1 tablet by mouth every 8 hours as needed (for pain). levothyroxine (SYNTHROID) 50 mcg tablet Take 1 tablet by mouth once daily. Take on empty stomach. For thyroid. albuterol HFA (PROVENTIL HFA, VENTOLIN HFA) 90 mcg/actuation inhaler Inhale 2 Puffs as instructed every 6 hours as needed. pantoprazole DR (PROTONIX) 40 mg tablet Take 1 tablet by mouth daily before breakfast. Take on empty stomach, 1/2 hr before meal. SUMAtriptan (IMITREX) 100 mg tablet One table by mouth with onset of headache. Can repeat in and hour but only 2 tabs in 24 hrs. EPINEPHrine 0.3 mg/0.3 mL auto-injector Inject 0.3 mL intramuscularly as needed. ALBUTEROL INHALATION Inhale as instructed. No current facility-administered medications on file prior to visit. Social History Social History Marital status: Single Spouse name: Years of education: Number of children: 2 Occupational History Occupation Employer [employer] Social History Main Topics Smoking status: Former Smoker Packs/day: 0.50 Years: 20.00 Types: Cigarettes Quit date: 05/18/2008 Smokeless status: Never Used Alcohol use: No Drug use: No Sexual activity: Yes Partners with: Male control/protection: Surgical Social History Narrative from her since 1990 ( did not show twice for divorce). REVIEW OF SYSTEMS: as above ? Reviewed relevant PMHx, PSHx, Social Hx, current medications and allergies. EXAM: BP 110/80 Pulse 76 Temp 36.4 ?C (97.6 ?F) (Tympanic) Resp 20 Wt 92.5 kg (204 lb) SpO2 100% BMI 36.14 kg/m2 General Appearance: Well appearing, alert, in no acute distress, well-hydrated, well nourished; Back is noticeably sweaty. Head: Normocephalic, no masses, lesions, tenderness or abnormalities. Eyes: Anicteric sclera. Pupils are equally round and reactive to light. Extraocular movements are intact. . Ears: External ears normal, canals clear. Nose/Sinuses: Nares normal, septum midline, mucosa normal, no drainage or sinus tenderness. Oropharynx: Lips, mucosa, and tongue normal, teeth and gums normal, trace erythema of the bilateral tonsillar pillars without exudate. Neck: Positive findings: tonsillar adenopathy. Lungs: Lungs clear to auscultation. No wheezing, rhonchi, rales. Heart: RRR without murmur, gallop, or rubs. No ectopy. Extremities: No deformities, edema. Health Maintenance List MAMMOGRAM due on 06/11/2018 COLORECTAL CANCER SCREENING,SEE MODIFIER due on 09/13/2018 DIABETES SCREEN due on 01/04/2020 LIPID SCREEN due on 01/03/2022 TETANUS due on 07/27/2024 INFLUENZA Completed HEPATITIS C SCREENING Completed Data reviewed Component Latest Ref Rng AND Units 01/03/2017 06/30/2017 07/14/2017 Color Yellow Yellow Clarity Clear Cloudy (A) Glucose, Urine Negative mg/dL Negative Bilirubin, Urine Negative Negative Ketones, Urine Negative Negative Specific [place], Ur 1.005 - 1.030 1.026 Hemoglobin/Blood,Ur Negative Negative pH, Urine 4.5 - 8.0 5.0 Protein, Urine Negative mg/dL Negative Urobilinogen Normal Normal Nitrites Negative Negative Leukest Negative Negative Comments SEE COMMENT Urine Amol Comment SEE COMMENT WBC, Urine 0 - 5 /HPF 0-5 RBC, Urine 0 - 3 /HPF 0-3 Epithelial Cells /HPF SEE COMMENT Crystal 0 /HPF SEE COMMENT (A) Triglyceride 30 - 149 mg/dL 98 Cholesterol, Total 100 - 199 mg/dL 167 HDL Cholesterol >55 mg/dL 51 (L) VLDL Cholesterol 6 - 40 mg/dL 20 LDL Cholesterol 60 - 129 mg/dL 96 Fasting Time hrs 13 TC:HDL Ratio 1.00 - 5.00 3.27 LDL:HDL Ratio 0.50 - 3.55 1.88 Non HDL Cholesterol 90 - 159 mg/dL 116 TSH 0.400 - 5.500 uU/mL 2.470 3.680 Occult Blood, Stool Negative Negative ASSESSMENT/PLAN: 1. Pharyngitis, unspecified etiology - ICD9: 462, ICD10: J02.9 (primary diagnosis) - Suspect viral at this time. Advised use of Zyrtec or Claritin for seasonal allergies. - Discussed supportive care treatment with fluids, rest and analgesia. - The patient may also use OTC cough and cold meds as needed and warm salt water gargles, throat lozenges and/or OTC throat spray as needed. - The patient should follow up in 3-5 days if symptoms persist or worsen 2. Chronic obstructive pulmonary disease, unspecified COPD type (HCC) - ICD9: 496, ICD10: J44.9 - Probable start to COPD exacerbation. Given complaints of sweaty, fatigue, wheezing, shortness of breath, will rule out pneumonia. - XR CHEST 2V FRONTAL/LAT - PREDNISONE 20 MG TABLET Get x-ray today, will notify of results. Follow up as needed. Cecil Rojas APRN.MAKE READY MECHANIC CNOV Observed: 08/24/2017 Status: COMPLETED Source: [place] 12:20 PM [facility] [place] REPOSITORY Office Visit (FAMPWS) YUNIER PATIÑO ([id number]) 1960 F Date Time Provider Department 08/24/17 12:20 PM CECIL ROJAS ([facility]) NOEL During your visit today, we recorded the following information about you: Temperature Pulse Respiration Blood pressure 97.6 degrees 76/minute 20/minute 110/80 Weight 92.5 kg Cecil Rojas APRN.NANCI 08/24/2017 12:49 PM Signed Chief Complaint Patient presents with: Sore Throat: x 2 days - no drainage -chills, body aches -coughing x 3 days - HPI Yunier Patiño is a 56 year old female who presents here today for Above Complaints. Patient presents to the office with complaints of a sore throat for the past 2 days. Also has a cough for the past 3 days. Denies any nasal drainage. Initially had a fever the first day and none since. Sore throat is worse in the morning and in the evening when in laying in bed. No ear pain. No nasal congestion. Cough is usually just at night, but can occur during the day intermittent. Does have some complaints of an intermittent wheeze. States that it seems as if she has some shortness of breath intermittently. Some fatigue. Mentions that her back has been abnormally sweaty. Does not think that her lymph nodes are enlarged. Does have a history of COPD. Is using albuterol rescue inhaler as prescribed. Mincatherine bejaranozenleena has been helping with her sore throat, but has increased her reflux. No ill contacts. Has not used any OTC medications. States that she has seasonal allergies but does not take any OTC anti-histamines. Past medical history, appointments, medications, allergies reviewed. Previous Medical History PAST MEDICAL HISTORY Diagnosis Date - COPD (chronic obstructive pulmonary disease) (HCC) - Headache(784.0) starting 47 years old - Hypothyroidism 06/11/2012 Previous Surgical History PAST SURGICAL HISTORY Procedure Laterality Date - CHOLECYSTECTOMY 07/17/2015 - COLONOSCOP W/ OR W/O BRSH SPEC 09/13/13 few diverticula, repeat 10 yrs - EGD W/O [facility] SPECIMEN W/BX 09/13/13 gastritis - FECAL OCCULT BLOOD TEST 07/16/2017 negative - HEMORRHOIDECTOMY 07/28/2017 - LIGATION OF HEMORRHOID(S) 05/05/2016 - PAST SURGICAL HISTORY OF - PAST SURGICAL HISTORY OF breast cyst, right? - REMOVAL OF TONSILS,ANDlt;14 Y/O Tonsillectomy - REVISE MEDIAN N/CARPAL TUNNEL SURG 05/26/12 Carpal tunnel decomp-bilateral - TOOTH EXTRACTION ~2009 all teeth extracted - TOTAL ABDOM HYSTERECTOMY 1994 [place], ovaries? menorrhagia, benign Family History FAMILY HISTORY Problem Relation Age of Onset - Ischemic Heart Disease Father 68 [place] 72 - Prostate Cancer Father - Coronary Artery Disease Father early 50's - ischemic bowel disease [OTHER] Father ?diverticulosis - Alzheimer's Disease Maternal Grandmother - Lipids Mother - Thyroid Mother - Thyroid Sister Patient Allergies ALLERGIES Allergen Reactions - Laguna Swelling - Ciprofloxacin Other: See Comments Chest tightness - Dust Swelling - Insect Parts Swelling, Shortness of Breath, Myalgia Pt not sure what bit her but developed redness,difficulty swallowing and swelling of face and neck - Morphine Vomiting - Pollen Swelling Current Medications Current Outpatient Prescriptions on File Prior to Visit: ibuprofen (MOTRIN) 800 mg tablet Take 1 tablet by mouth every 8 hours as needed (for pain). levothyroxine (SYNTHROID) 50 mcg tablet Take 1 tablet by mouth once daily. Take on empty stomach. For thyroid. albuterol HFA (PROVENTIL HFA, VENTOLIN HFA) 90 mcg/actuation inhaler Inhale 2 Puffs as instructed every 6 hours as needed. pantoprazole DR (PROTONIX) 40 mg tablet Take 1 tablet by mouth daily before breakfast. Take on empty stomach, 1/2 hr before meal. SUMAtriptan (IMITREX) 100 mg tablet One table by mouth with onset of headache. Can repeat in and hour but only 2 tabs in 24 hrs. EPINEPHrine 0.3 mg/0.3 mL auto-injector Inject 0.3 mL intramuscularly as needed. ALBUTEROL INHALATION Inhale as instructed. No current facility-administered medications on file prior to visit. Social History Social History Marital status: Single Spouse name: Years of education: Number of children: 2 Occupational History Occupation Employer Comment [employer] Social History Main Topics Smoking status: Former Smoker Packs/day: 0.50 Years: 20.00 Types: Cigarettes Quit date: 05/18/2008 Smokeless status: Never Used Alcohol use: No Drug use: No Sexual activity: Yes Partners with: Male control/protection: Surgical Social History Narrative from her since 1990 ( did not show twice for divorce). REVIEW OF SYSTEMS: as above ? Reviewed relevant PMHx, PSHx, Social Hx, current medications and allergies. EXAM: BP 110/80 Pulse 76 Temp 36.4 ?C (97.6 ?F) (Tympanic) Resp 20 Wt 92.5 kg (204 lb) SpO2 100% BMI 36.14 kg/m2 General Appearance: Well appearing, alert, in no acute distress, well-hydrated, well nourished; Back is noticeably sweaty. Head: Normocephalic, no masses, lesions, tenderness or abnormalities. Eyes: Anicteric sclera. Pupils are equally round and reactive to light. Extraocular movements are intact. . Ears: External ears normal, canals clear. Nose/Sinuses: Nares normal, septum midline, mucosa normal, no drainage or sinus tenderness. Oropharynx: Lips, mucosa, and tongue normal, teeth and gums normal, trace erythema of the bilateral tonsillar pillars without exudate. Neck: Positive findings: tonsillar adenopathy. Lungs: Lungs clear to auscultation. No wheezing, rhonchi, rales. Heart: RRR without murmur, gallop, or rubs. No ectopy. Extremities: No deformities, edema. Health Maintenance List MAMMOGRAM due on 06/11/2018 COLORECTAL CANCER SCREENING,SEE MODIFIER due on 09/13/2018 DIABETES SCREEN due on 01/04/2020 LIPID SCREEN due on 01/03/2022 TETANUS due on 07/27/2024 INFLUENZA Completed HEPATITIS C SCREENING Completed Data reviewed Component Latest Ref Rng ANDamp; Units 01/03/2017 06/30/2017 07/14/2017 Color Yellow Yellow Clarity Clear Cloudy (A) Glucose, Urine Negative mg/dL Negative Bilirubin, Urine Negative Negative Ketones, Urine Negative Negative Specific [place], Ur 1.005 - 1.030 1.026 Hemoglobin/Blood,Ur Negative Negative pH, Urine 4.5 - 8.0 5.0 Protein, Urine Negative mg/dL Negative Urobilinogen Normal Normal Nitrites Negative Negative Leukest Negative Negative Comments SEE COMMENT Urine Amol Comment SEE COMMENT WBC, Urine 0 - 5 /HPF 0-5 RBC, Urine 0 - 3 /HPF 0-3 Epithelial Cells /HPF SEE COMMENT Crystal 0 /HPF SEE COMMENT (A) Triglyceride 30 - 149 mg/dL 98 Cholesterol, Total 100 - 199 mg/dL 167 HDL Cholesterol ANDgt;55 mg/dL 51 (L) VLDL Cholesterol 6 - 40 mg/dL 20 LDL Cholesterol 60 - 129 mg/dL 96 Fasting Time hrs 13 TC:HDL Ratio 1.00 - 5.00 3.27 LDL:HDL Ratio 0.50 - 3.55 1.88 Non HDL Cholesterol 90 - 159 mg/dL 116 TSH 0.400 - 5.500 uU/mL 2.470 3.680 Occult Blood, Stool Negative Negative ASSESSMENT/PLAN: 1. Pharyngitis, unspecified etiology - ICD9: 462, ICD10: J02.9 (primary diagnosis) - Suspect viral at this time. Advised use of Zyrtec or Claritin for seasonal allergies. - Discussed supportive care treatment with fluids, rest and analgesia. - The patient may also use OTC cough and cold meds as needed and warm salt water gargles, throat lozenges and/or OTC throat spray as needed. - The patient should follow up in 3-5 days if symptoms persist or worsen 2. Chronic obstructive pulmonary disease, unspecified COPD type (HCC) - ICD9: 496, ICD10: J44.9 - Probable start to COPD exacerbation. Given complaints of sweaty, fatigue, wheezing, shortness of breath, will rule out pneumonia. - XR CHEST 2V FRONTAL/LAT - PREDNISONE 20 MG TABLET Get x-ray today, will notify of results. Follow up as needed. CALEB Olmedo APRN.CNP 08/24/2017 12:42 PM Signed Would advise use of an anti-histamine daily for allergies, such as Zyrtec, Claritin, Trupti. Can be purchased over the counter. SORE THROAT INSTRUCTIONS SORE THROAT OVERVIEW - Sore throat is a common problem during childhood, and is usually the result of a bacterial or viral infection. Although sore throat usually resolves without complications, it sometimes requires treatment with an antibiotic. There are some less common causes of sore throat that are serious or even life-threatening. This topic will discuss the most common causes and treatments of sore throat in children, as well as the warning signs of more serious conditions. SORE THROAT CAUSES - The most likely cause of a child's sore throat depends upon the child's age, the season, and the geographic area. While viruses are the most common cause of sore throat, bacteria are another common cause. Bacteria and viruses are spread from one person to another through hand contact. Hands get contaminated when the sick individual touches their nose or mouth and then touches another person directly (qcxa-ob-mkzm contact) or indirectly (knzz-bh-imnvps, such as doorknob, telephone, toys). It is difficult to determine the cause of sore throat based upon symptoms alone; an examination and laboratory test are recommended in most cases Viruses - There are many viruses that can cause pain and swelling of the throat. The most common include viruses that cause sore throat as part of an upper respiratory infection, such as the common cold. Other viruses that cause sore throat include influenza, adenovirus, and Jen-Bonner virus (the cause of mononucleosis). Symptoms - Symptoms that may occur with a viral infection can include a runny nose and congestion, irritation or redness of the eyes, cough, hoarseness, soreness in the roof of the mouth, a skin rash, or diarrhea. In addition, children with viral infections may have a fever and may feel miserable. A high fever does not necessarily mean that the child has a bacterial infection. Group A streptococcus - Group A streptococcus (GAS) is the name of the bacterium that causes strep throat. Although other bacteria can cause a sore throat, GAS is the most common bacterial cause; up to 30 percent of children with a sore throat will have GAS. Strep throat usually occurs during the winter and early spring, and is most common in school-age children and their younger siblings. Symptoms - Symptoms of strep throat in children older than 3 years often develop suddenly and include fever (temperature ?100.4?F or 38?C), headache, abdominal pain, nausea, and vomiting. Other symptoms can include swollen glands in the neck, white patches of pus in the back or sides of the throat, small red spots on the roof of the mouth, and swelling of the uvula. A cough and cold are not commonly seen in children with strep throat. Strep throat is uncommon in children younger than age 2 to 3 years. However, GAS infection can occur in younger children, and may cause a runny nose and congestion that is prolonged, low-grade fever (?101?F or 38.3?C), and tender glands in the neck. Infants younger than 1 year may be fussy and have a decreased appetite and low-grade fever. SORE THROAT TREATMENT - The treatment of sore throat depends upon the cause; strep throat is treated with an antibiotic while viral pharyngitis is treated with rest, pain relievers, and other measures to reduce symptoms. Strep throat - Strep throat is usually treated with an antibiotic, such as penicillin, or an antibiotic similar to penicillin (eg, amoxicillin). Children who are allergic to penicillin will be given an alternate antibiotic. The antibiotic is usually given in pill or liquid form two or three times per day. A one-time injection is also available, and may be recommended if a child is unwilling to take an oral medication. After completing 24 hours of antibiotics, the child is no longer contagious and may return to school. Symptoms usually improve within 1 to 2 days. However, it is important for the child to finish the entire course of treatment (usually 10 days). If a child does not begin to improve or worsens within 3 days, the child should be reevaluated. Throat pain can be treated with a non-prescription pain medication, if needed. (See 'Pain medications' below.) In addition, parents should monitor their child for dehydration, which can develop if the child is not willing to drink or eat due to a sore throat. (See 'Monitor for dehydration' below.) Viral throat pain - Sore throat caused by viral infections usually last 4 to 5 days. During this time, treatments to reduce pain may be helpful but will not help to eliminate the virus. Antibiotics do not improve throat pain caused by a virus and are not recommended. A child with a viral infection is usually allowed to return to school when there has been no fever for 24 hours and the child feels well enough to pay attention. Pain medications - Throat pain can be treated with a mild pain reliever such as acetaminophen (Tylenol?) or a non-steroidal anti-inflammatory agent such as ibuprofen (Motrin?). These medications should be dosed according to weight, not age. Aspirin is not recommended for children ANDlt;18 years due to the risk of a potentially serious condition known as Darlin syndrome. Monitor for dehydration - Some children with a sore throat are reluctant to drink or eat due to pain. Drinking less fluid can lead to dehydration. To reduce the risk of dehydration, parents can offer warm or cold liquids. (See 'Other interventions' below.) Signs and symptoms of mild dehydration include a slightly dry mouth, increased thirst, and decreased urine output (one wet diaper or void in six hours). Signs of moderate or severe dehydration include decreased urine output (less than one wet diaper or void in six hours), lack of tears when crying, dry mouth, and sunken eyes. A child who is moderately or severely dehydrated should be evaluated by a healthcare provider as soon as possible to determine if treatment is needed. Oral rinses- Salt-water gargles are an old stand-by for relief of throat pain. It is not clear if this treatment is effective, but it is unlikely to be harmful. Most recipes suggest 1/4 to 1/2 teaspoon of salt per cup (8 ounces) of warm water. The water should be gargled and then spit out (not swallowed). Children younger than six to eight years are not able to gargle properly. An oral rinse composed of equal parts of diphenhydramine (Benadryl? liquid) and Maalox? (magnesium hydroxide, aluminum hydroxide, and simethicone) may be helpful for pain caused by a sore mouth or ulcers in the mouth. Children older than six to eight years may swish and spit (not swallow) the mixture. Sprays - Sprays containing topical anesthetics are available to treat sore throat. However, such sprays are no more effective than sucking on hard candy. In addition, a common anesthetic ingredient, benzocaine, can cause allergic reactions. We do not recommend throat sprays for children. Lozenges - A variety of medicated throat lozenges are available to relieve dryness or pain. However, it is not clear that lozenges work any better than hard candy. We do not recommend throat lozenges for children, especially children younger than 3 to 4 years, who can choke. Sucking on hard candy may provide some relief for children older than 3 to 4 years, who are not at risk for choking. Other interventions - Other interventions include sipping warm beverages (eg, honey or lemon tea, chicken soup), cold beverages, or eating cold or frozen desserts (eg, ice cream, popsicles). These treatments are safe for children. Honey should not be given to children younger than 12 months due to the potential risk of botulism poisoning. Alternative therapies - Health food stores, vitamin outlets, and Internet Web sites offer alternative treatments for relief of sore throat pain. We do not recommend these treatments due to the risks of contamination with pesticides/herbicides, inaccurate labeling and dosing information, and a lack of studies showing that these treatments are safe and effective. SORE THROAT PREVENTION - Hand washing is an essential and highly effective way to prevent the spread of infection. Hands should be wet with water and plain soap, and rubbed together for 15 to 30 seconds. Special attention should be paid to the fingernails, between the fingers, and the wrists. Hands should be rinsed thoroughly, and dried with a single use towel. Alcohol-based hand rubs are a good alternative for disinfecting hands if a sink is not available. Hand rubs should be spread over the entire surface of hands, fingers, and wrists until dry, and may be used several times. These rubs can be used repeatedly without skin irritation or loss of effectiveness. Hand rubs are available as a liquid or wipe in small, portable sizes that are easy to carry in a pocket or handbag. When a sink is available, visibly soiled hands should be washed with soap and water. Hands should be washed after coughing, blowing the nose or sneezing. While it is not always possible to limit contact with a person who is sick, avoiding touching the eyes, nose, or mouth after direct contact can help to prevent the spread of infection. In addition, tissues should be used to cover the mouth when sneezing or coughing. These used tissues should be disposed of promptly. Sneezing/coughing into the sleeve of one's clothing (at the inner elbow) is another means of containing sprays of saliva and secretions and has the advantage of not contaminating the hands. WHEN TO SEEK HELP - Parents of a child with throat pain and one or more of the following should contact their healthcare provider immediately: Difficulty swallowing or breathing Excessive drooling in an or young child Temperature ?101?F or 38.3?C Swelling of the neck Child is unable or unwilling to drink or eat Voice sounds muffled Child has a stiff neck or difficulty opening the mouth WHERE TO GET MORE INFORMATION - Your child's healthcare provider is the best source of information for questions and concerns related to your child's medical problem. This article will be updated as needed every four months on our web site ([email or web address]). Information below was obtained from ANDquot;Up to dateANDquot; Last literature review version 19.2: September 2010 This topic last updated: January 02, 2010 Referring Provider: SELF [200] Allergies As of Date: 08/24/2017 Noted Allergy Reaction LAGUNA 06/08/2012 7 - Swelling CIPROFLOXACIN 12/17/2015 14 - Other: See Comments Comments: Chest tightness DUST 06/08/2012 7 - Swelling INSECT PARTS 03/26/2016 7 - Swelling 12 - Shortness of Breath 17 - Myalgia Comments: Pt not sure what bit her but developed redness,difficulty swallowing and swelling of face and neck MORPHINE 06/08/2012 11 - Vomiting POLLEN 06/08/2012 7 - Swelling Date Reviewed: 08/24/2017 Reviewed by: Cecil ([facility]) Bob - Fully Assessed Reason for Visit: Sore Throat [200] Cmt: x 2 days - no drainage -chills, body aches -coughing x 3 days - Primary Visit Diagnosis:Pharyngitis, unspecified etiology [J02.9] Other Visit Diagnosis:Chronic obstructive pulmonary disease, unspecified COPD type ([facility]) [J44.9] Order(s):XR CHEST 2V FRONTAL/LAT [[id number]] Order #: [id number] FUTURE predniSONE (DELTASONE) 20 mg tabletTake 2 tablets by mouth once daily for 5 days. Take daily with food.Disp: 10 tabletRfl: 0 Prescriptions as of 08/24/2017 Sig: IBUPROFEN 800 MG TABLET Take 1 tablet by mouth every * LEVOTHYROXINE 50 MCG TABLET Take 1 tablet by mouth once d* ALBUTEROL SULFATE HFA 90 MCG/* Inhale 2 Puffs as instructed * PANTOPRAZOLE 40 MG TABLET,DEL* Take 1 tablet by mouth daily * SUMATRIPTAN 100 MG TABLET One table by mouth with onset* EPINEPHRINE 0.3 MG/0.3 ML INJ* Inject 0.3 mL intramuscularly* PREDNISONE 20 MG TABLET Take 2 tablets by mouth once * ALBUTEROL INHALATION Inhale as instructed. Problem List As Of Date 08/24/2017 Noted Resolved Migraine without aura and without status migrai* Priority: A More... More... Acquired hypothyroidism [E03.9] INVALID FOR* Priority: A More... More... Encounter for screening for diabetes mellitus [*INVALID FOR* Encounter for screening for cardiovascular diso*INVALID FOR* Encounter for gynecological examination without*INVALID FOR* Priority: E More... Chronic obstructive pulmonary disease (HCC) [J4*INVALID FOR* Priority: B More... Hemorrhoids, internal, with bleeding [K64.8] INVALID FOR* Priority: C Well adult exam [Z00.00] INVALID FOR* Priority: E More... Prolapsed internal hemorrhoids [K64.8] INVALID FOR* More... Other instructions from your clinician: Would advise use of an anti-histamine daily for allergies, such as Zyrtec, Claritin, Trupti. Can be purchased over the counter. SORE THROAT INSTRUCTIONS SORE THROAT OVERVIEW - Sore throat is a common problem during childhood, and is usually the result of a bacterial or viral infection. Although sore throat usually resolves without complications, it sometimes requires treatment with an antibiotic. There are some less common causes of sore throat that are serious or even life-threatening. This topic will discuss the most common causes and treatments of sore throat in children, as well as the warning signs of more serious conditions. SORE THROAT CAUSES - The most likely cause of a child's sore throat depends upon the child's age, the season, and the geographic area. While viruses are the most common cause of sore throat, bacteria are another common cause. Bacteria and viruses are spread from one person to another through hand contact. Hands get contaminated when the sick individual touches their nose or mouth and then touches another person directly (goik-du-lsnb contact) or indirectly (svum-tn-wvwqxh, such as doorknob, telephone, toys). It is difficult to determine the cause of sore throat based upon symptoms alone; an examination and laboratory test are recommended in most cases Viruses - There are many viruses that can cause pain and swelling of the throat. The most common include viruses that cause sore throat as part of an upper respiratory infection, such as the common cold. Other viruses that cause sore throat include influenza, adenovirus, and Jen-Bonner virus (the cause of mononucleosis). Symptoms - Symptoms that may occur with a viral infection can include a runny nose and congestion, irritation or redness of the eyes, cough, hoarseness, soreness in the roof of the mouth, a skin rash, or diarrhea. In addition, children with viral infections may have a fever and may feel miserable. A high fever does not necessarily mean that the child has a bacterial infection. Group A streptococcus - Group A streptococcus (GAS) is the name of the bacterium that causes strep throat. Although other bacteria can cause a sore throat, GAS is the most common bacterial cause; up to 30 percent of children with a sore throat will have GAS. Strep throat usually occurs during the winter and early spring, and is most common in school-age children and their younger siblings. Symptoms - Symptoms of strep throat in children older than 3 years often develop suddenly and include fever (temperature ?100.4?F or 38?C), headache, abdominal pain, nausea, and vomiting. Other symptoms can include swollen glands in the neck, white patches of pus in the back or sides of the throat, small red spots on the roof of the mouth, and swelling of the uvula. A cough and cold are not commonly seen in children with strep throat. Strep throat is uncommon in children younger than age 2 to 3 years. However, GAS infection can occur in younger children, and may cause a runny nose and congestion that is prolonged, low-grade fever (?101?F or 38.3?C), and tender glands in the neck. Infants younger than 1 year may be fussy and have a decreased appetite and low-grade fever. SORE THROAT TREATMENT - The treatment of sore throat depends upon the cause; strep throat is treated with an antibiotic while viral pharyngitis is treated with rest, pain relievers, and other measures to reduce symptoms. Strep throat - Strep throat is usually treated with an antibiotic, such as penicillin, or an antibiotic similar to penicillin (eg, amoxicillin). Children who are allergic to penicillin will be given an alternate antibiotic. The antibiotic is usually given in pill or liquid form two or three times per day. A one-time injection is also available, and may be recommended if a child is unwilling to take an oral medication. After completing 24 hours of antibiotics, the child is no longer contagious and may return to school. Symptoms usually improve within 1 to 2 days. However, it is important for the child to finish the entire course of treatment (usually 10 days). If a child does not begin to improve or worsens within 3 days, the child should be reevaluated. Throat pain can be treated with a non-prescription pain medication, if needed. (See 'Pain medications' below.) In addition, parents should monitor their child for dehydration, which can develop if the child is not willing to drink or eat due to a sore throat. (See 'Monitor for dehydration' below.) Viral throat pain - Sore throat caused by viral infections usually last 4 to 5 days. During this time, treatments to reduce pain may be helpful but will not help to eliminate the virus. Antibiotics do not improve throat pain caused by a virus and are not recommended. A child with a viral infection is usually allowed to return to school when there has been no fever for 24 hours and the child feels well enough to pay attention. Pain medications - Throat pain can be treated with a mild pain reliever such as acetaminophen (Tylenol?) or a non-steroidal anti-inflammatory agent such as ibuprofen (Motrin?). These medications should be dosed according to weight, not age. Aspirin is not recommended for children <18 years due to the risk of a potentially serious condition known as Darlin syndrome. Monitor for dehydration - Some children with a sore throat are reluctant to drink or eat due to pain. Drinking less fluid can lead to dehydration. To reduce the risk of dehydration, parents can offer warm or cold liquids. (See 'Other interventions' below.) Signs and symptoms of mild dehydration include a slightly dry mouth, increased thirst, and decreased urine output (one wet diaper or void in six hours). Signs of moderate or severe dehydration include decreased urine output (less than one wet diaper or void in six hours), lack of tears when crying, dry mouth, and sunken eyes. A child who is moderately or severely dehydrated should be evaluated by a healthcare provider as soon as possible to determine if treatment is needed. Oral rinses- Salt-water gargles are an old stand-by for relief of throat pain. It is not clear if this treatment is effective, but it is unlikely to be harmful. Most recipes suggest 1/4 to 1/2 teaspoon of salt per cup (8 ounces) of warm water. The water should be gargled and then spit out (not swallowed). Children younger than six to eight years are not able to gargle properly. An oral rinse composed of equal parts of diphenhydramine (Benadryl? liquid) and Maalox? (magnesium hydroxide, aluminum hydroxide, and simethicone) may be helpful for pain caused by a sore mouth or ulcers in the mouth. Children older than six to eight years may swish and spit (not swallow) the mixture. Sprays - Sprays containing topical anesthetics are available to treat sore throat. However, such sprays are no more effective than sucking on hard candy. In addition, a common anesthetic ingredient, benzocaine, can cause allergic reactions. We do not recommend throat sprays for children. Lozenges - A variety of medicated throat lozenges are available to relieve dryness or pain. However, it is not clear that lozenges work any better than hard candy. We do not recommend throat lozenges for children, especially children younger than 3 to 4 years, who can choke. Sucking on hard candy may provide some relief for children older than 3 to 4 years, who are not at risk for choking. Other interventions - Other interventions include sipping warm beverages (eg, honey or lemon tea, chicken soup), cold beverages, or eating cold or frozen desserts (eg, ice cream, popsicles). These treatments are safe for children. Honey should not be given to children younger than 12 months due to the potential risk of botulism poisoning. Alternative therapies - Health food stores, vitamin outlets, and Internet Web sites offer alternative treatments for relief of sore throat pain. We do not recommend these treatments due to the risks of contamination with pesticides/herbicides, inaccurate labeling and dosing information, and a lack of studies showing that these treatments are safe and effective. SORE THROAT PREVENTION - Hand washing is an essential and highly effective way to prevent the spread of infection. Hands should be wet with water and plain soap, and rubbed together for 15 to 30 seconds. Special attention should be paid to the fingernails, between the fingers, and the wrists. Hands should be rinsed thoroughly, and dried with a single use towel. Alcohol-based hand rubs are a good alternative for disinfecting hands if a sink is not available. Hand rubs should be spread over the entire surface of hands, fingers, and wrists until dry, and may be used several times. These rubs can be used repeatedly without skin irritation or loss of effectiveness. Hand rubs are available as a liquid or wipe in small, portable sizes that are easy to carry in a pocket or handbag. When a sink is available, visibly soiled hands should be washed with soap and water. Hands should be washed after coughing, blowing the nose or sneezing. While it is not always possible to limit contact with a person who is sick, avoiding touching the eyes, nose, or mouth after direct contact can help to prevent the spread of infection. In addition, tissues should be used to cover the mouth when sneezing or coughing. These used tissues should be disposed of promptly. Sneezing/coughing into the sleeve of one's clothing (at the inner elbow) is another means of containing sprays of saliva and secretions and has the advantage of not contaminating the hands. WHEN TO SEEK HELP - Parents of a child with throat pain and one or more of the following should contact their healthcare provider immediately: Difficulty swallowing or breathing Excessive drooling in an infant or young child Temperature ?101?F or 38.3?C Swelling of the neck Child is unable or unwilling to drink or eat Voice sounds muffled Child has a stiff neck or difficulty opening the mouth WHERE TO GET MORE INFORMATION - Your child's healthcare provider is the best source of information for questions and concerns related to your child's medical problem. This article will be updated as needed every four months on our web site ([email or web address]). Information below was obtained from Up to date Last literature review version 19.2: September 2010 This topic last updated: January 02, 2010 Prescriptions ordered this encounter Disp Refills Start End PREDNISONE 20 MG TABLET 10 t* 0 08/24/2017 08/29/2017 Route: ORAL Sig: Take 2 tablets by mouth once daily for 5 days. Take daily with food. Medications Discontinued During This Encounter promethazine (PHENERGAN) 25 mg tablet 20 t* 0 08/04/2017 08/24/2017 Route: ORAL Sig: Take 1 tablet by mouth every 6 hours as needed for Nausea/Vomiting (for nausea). Disc: Course of therapy completed ondansetron orally disintegrating (Z* 6 ta* 1 07/28/2017 08/24/2017 Class: Print RX Route: ORAL Sig: Take 1 tablet by mouth every 8 hours as needed. Disc: Course of therapy completed Disposition: Return if symptoms worsen or fail to improve. Follow-up and Disposition History Recorded Encounter Status:Closed by CECIL ROJAS CNP on 08/24/17 PROGRESS Observed: 08/19/2017 Status: COMPLETED Source: [place] 9:59 AM [facility] REPOSITORY HNO ID: [id number] Author: Maye Avina Service: (none) Author Type: Physician Type: Progress Notes Filed: 08/19/2017 11:08 AM Note Text: HPI: Yunier returns in follow-up of hemorrhoidectomy. Her postoperative pain is improving. She does complain of tailbone pain. EXAM: There were no vitals taken for this visit. On rectal exam the surgical sites are healing nicely. No evidence for infection. No evidence for hematoma. PATHOLOGY: Hemorrhoidal tissue ASSESSMENT: (Z98.890, Z87.19) S/P hemorrhoidectomy (primary encounter diagnosis) Yunier returns in follow-up of hemorrhoidectomy. Her postoperative pain is improving. She will be returning to see me as needed. Office Visit on 08/18/17 -ibuprofen (MOTRIN) 800 mg tablet Maye Avina MD CNOV Observed: 08/18/2017 Status: COMPLETED Source: [place] 3:00 PM [facility] REPOSITORY Office Visit (ERASMO) YUNIER PATIÑO ([id number]) 1960 F Date Time Provider Department 08/18/17 3:00 PM MAYE AVINA During your visit today, we recorded the following information about you: Maye Avina MD 08/19/2017 11:08 AM Signed HPI: Yunier returns in follow-up of hemorrhoidectomy. Her postoperative pain is improving. She does complain of tailbone pain. EXAM: There were no vitals taken for this visit. On rectal exam the surgical sites are healing nicely. No evidence for infection. No evidence for hematoma. PATHOLOGY: Hemorrhoidal tissue ASSESSMENT: (Z98.890, Z87.19) S/P hemorrhoidectomy (primary encounter diagnosis) Yunier returns in follow-up of hemorrhoidectomy. Her postoperative pain is improving. She will be returning to see me as needed. Office Visit on 08/18/17 -ibuprofen (MOTRIN) 800 mg tablet Maye Avina MD Referring Provider: MAYE AVINA [[id number]] Allergies As of Date: 08/18/2017 Noted Allergy Reaction LAGUNA 06/08/2012 7 - Swelling CIPROFLOXACIN 12/17/2015 14 - Other: See Comments Comments: Chest tightness DUST 06/08/2012 7 - Swelling INSECT PARTS 03/26/2016 7 - Swelling 12 - Shortness of Breath 17 - Myalgia Comments: Pt not sure what bit her but developed redness,difficulty swallowing and swelling of face and neck MORPHINE 06/08/2012 11 - Vomiting POLLEN 06/08/2012 7 - Swelling Date Reviewed: 08/18/2017 Reviewed by: Brandy Virgen LPN - Fully Assessed Reason for Visit: Post Op [174] Cmt: Hemorrhoidectomy Primary Visit Diagnosis:S/P hemorrhoidectomy [Z98.890, Z87.19] Order(s):ibuprofen (MOTRIN) 800 mg tabletTake 1 tablet by mouth every 8 hours as needed (for pain).Disp: 30 tabletRfl: 1 Prescriptions as of 08/18/2017 Sig: IBUPROFEN 800 MG TABLET Take 1 tablet by mouth every * PROMETHAZINE 25 MG TABLET Take 1 tablet by mouth every * ONDANSETRON 4 MG TAB, RAPID D* Take 1 tablet by mouth every * LEVOTHYROXINE 50 MCG TABLET Take 1 tablet by mouth once d* ALBUTEROL SULFATE HFA 90 MCG/* Inhale 2 Puffs as instructed * PANTOPRAZOLE 40 MG TABLET,DEL* Take 1 tablet by mouth daily * ALBUTEROL INHALATION Inhale as instructed. SUMATRIPTAN 100 MG TABLET One table by mouth with onset* EPINEPHRINE 0.3 MG/0.3 ML INJ* Inject 0.3 mL intramuscularly* Problem List As Of Date 08/18/2017 Noted Resolved Migraine without aura and without status migrai* Priority: A More... More... Acquired hypothyroidism [E03.9] INVALID FOR* Priority: A More... More... Encounter for screening for diabetes mellitus [*INVALID FOR* Encounter for screening for cardiovascular diso*INVALID FOR* Encounter for gynecological examination without*INVALID FOR* Priority: E More... Chronic obstructive pulmonary disease (HCC) [J4*INVALID FOR* Priority: B More... Hemorrhoids, internal, with bleeding [K64.8] INVALID FOR* Priority: C Well adult exam [Z00.00] INVALID FOR* Priority: E More... Prolapsed internal hemorrhoids [K64.8] INVALID FOR* More... Prescriptions ordered this encounter Disp Refills Start End IBUPROFEN 800 MG TABLET 30 t* 1 08/18/2017 Route: ORAL Sig: Take 1 tablet by mouth every 8 hours as needed (for pain). Encounter Status:Closed by MAYE AVINA MD on 08/19/17 LINDA Observed: 08/03/2017 Status: COMPLETED Source: [place] 12:00 AM [facility] REPOSITORY Telephone ([employer]) YUNIER PATIÑO ([id number]) 1960 F Date Time Provider Department 08/03/17 MAYE AVINA During your visit today, we recorded the following information about you: Brandy Virgen RAVINDER 08/03/2017 8:33 AM Signed Disability paperwork Faxed, Confirmation received. Allergies As of Date: 08/03/2017 Noted Allergy Reaction LAGUNA 06/08/2012 7 - Swelling CIPROFLOXACIN 12/17/2015 14 - Other: See Comments Comments: Chest tightness DUST 06/08/2012 7 - Swelling INSECT PARTS 03/26/2016 7 - Swelling 12 - Shortness of Breath 17 - Myalgia Comments: Pt not sure what bit her but developed redness,difficulty swallowing and swelling of face and neck MORPHINE 06/08/2012 11 - Vomiting POLLEN 06/08/2012 7 - Swelling Date Reviewed: 07/28/2017 Reviewed by: Sirena PlattRn) SANJANA Bourne - Fully Assessed Reason for Visit: Disability Paperwork [Other] Prescriptions as of 08/03/2017 Sig: ONDANSETRON 4 MG TAB, RAPID D* Take 1 tablet by mouth every * LEVOTHYROXINE 50 MCG TABLET Take 1 tablet by mouth once d* ALBUTEROL SULFATE HFA 90 MCG/* Inhale 2 Puffs as instructed * PANTOPRAZOLE 40 MG TABLET,DEL* Take 1 tablet by mouth daily * ALBUTEROL INHALATION Inhale as instructed. SUMATRIPTAN 100 MG TABLET One table by mouth with onset* EPINEPHRINE 0.3 MG/0.3 ML INJ* Inject 0.3 mL intramuscularly* Problem List As Of Date 08/03/2017 Noted Resolved Migraine without aura and without status migrai* Priority: A More... More... Acquired hypothyroidism [E03.9] INVALID FOR* Priority: A More... More... Encounter for screening for diabetes mellitus [*INVALID FOR* Encounter for screening for cardiovascular diso*INVALID FOR* Encounter for gynecological examination without*INVALID FOR* Priority: E More... Chronic obstructive pulmonary disease (HCC) [J4*INVALID FOR* Priority: B More... Hemorrhoids, internal, with bleeding [K64.8] INVALID FOR* Priority: C Well adult exam [Z00.00] INVALID FOR* Priority: E More... Prolapsed internal hemorrhoids [K64.8] INVALID FOR* More... Encounter Status:Closed by BRANDY VIRGEN LPN on 08/03/17 PT ED Observed: 07/28/2017 Status: COMPLETED Source: [place] 10:24 AM [facility] REPOSITORY HNO ID: [id number] Author: Lisa PlattRn) SANJANA Rivero Service: (none) Author Type: Registered Nurse Type: Patient Education Filed: 07/28/2017 10:27 AM Note Text: POST OP LEARNING RESPONSE INSTRUCTION PROVIDED TO: Patient and family member METHOD OF INSTRUCTION: Teach Back . Individual instruction Written instruction - handouts Verbal instruction PATIENT / FAMILY RESPONSE: Verbalizes understanding of: MEDICATION PRESCRIBED-Accurate knowledge of prescribed medication prior to discharge PAIN MANAGEMENT-Effective strategies to manage pain in addition to pain medication PHYSICAL RESTRICTIONS-Physical restrictions and recommendations after discharge from the hospital POST-OPERATIVE INSTRUCTIONS-Correct actions to take to reduce postoperative complications FOLLOW-UP PLAN: Patient instructed to call with any further issues Follow-up with Primary Care SUPPLEMENTAL MATERIAL: None REFERRAL (RECOMMENDATION): None Electronically Signed By: Lisa Rivero RN, BSN In Department: [facility] SURGERY ANES POST Observed: 07/28/2017 Status: COMPLETED Source: [place] 10:13 AM CLINIC OTHER CAMPUS REPOSITORY HNO ID: [id number] Author: Simone Luevano MD Service: Anesthesiology Author Type: Anesthesiologist Type: Anesthesia PostOp Filed: 07/28/2017 10:13 AM Note Text: POST ANESTHESIA EVALUATION NOTE SERVICE DATE: 07/28/2017 SERVICE TIME: 999 : 1960 Vitals: 07/28/17 0817 07/28/17 0915 07/28/17 0939 07/28/17 1000 Temp: 36.5 ?C (97.7 ?F) 36.2 ?C (97.2 ?F) 36.4 ?C (97.5 ?F) 36.6 ?C (97.9 ?F) 07/28/17 0900 07/28/17 0915 07/28/17 0939 07/28/17 1000 BP: 99/60 95/60 105/64 108/65 07/28/17 0900 07/28/17 0915 07/28/17 0939 07/28/17 1000 Pulse: 70 65 70 68 07/28/17 0900 07/28/17 0915 07/28/17 0939 07/28/17 1000 Resp: 16 16 18 18 07/28/17 0845 07/28/17 0900 07/28/17 0915 07/28/17 0939 SpO2: 98% 93% 94% 95% Validated Vital Signs: Yes POST ANES STATUS: No apparent anesthetic complications. The patient is appropriately hydrated with stable respiratory and cardiovascular status. Patient has safe and adequate airway control. The patient has appropriate pain relief and no significant post operative nausea or vomiting. The patient has achieved baseline mental status. Further assessment by Anesthesia Service: None Other Remarks: SIGNATURE: Simone Luevano MD PATIENT NAME: Yunier Patiño DATE: July 28, 2017 TIME: 10:13 AM PAGER/CONTACT #: PLAN OF CARE Observed: 07/28/2017 Status: COMPLETED Source: [place] 9:49 AM [facility]INIC OTHER CAMPUS REPOSITORY HNO ID: [id number] Author: Cristina Alejandro (Ingeniatrics) Service: (none) Author Type: (none) Type: Plan of Care Filed: 07/28/2017 9:49 AM Note Text: NARCOTICS AGENT BEDSIDE DELIVERY SURVEY 1. Patient to use [facility] Bedside Delivery - YES 2. If fax, patient would like us to fax prescriptions to Pharmacy of choice a. Pharmacy: b. Location: c. Phone: 3. Insurance card on file - YES 4. Credit card for payment - YES PHARMACY BEDSIDE DELIVERY SERVICE Patient Name: Yunier Patiño The marked outpatient medications were Filled at: [facility] and delivered to the patient's bedside to pharm p/u Medication List START taking these medications X HYDROcodone-acetaminophen 5-325 mg per tablet Commonly known as: NORCO Take 1 tablet by mouth every 4 hours as needed for up to 3 days. X ondansetron orally disintegrating 4 mg tab(s) ER Go-Pack Commonly known as: ZOFRAN ODT Take 1 tablet by mouth every 8 hours as needed. CONTINUE taking these medications albuterol HFA 90 mcg/actuation inhaler Commonly known as: PROVENTIL HFA, VENTOLIN HFA Inhale 2 Puffs as instructed every 6 hours as needed. ALBUTEROL INHALATION EPINEPHrine 0.3 mg/0.3 mL auto-injector Commonly known as: EPIPEN Inject 0.3 mL intramuscularly as needed. levothyroxine 50 mcg tablet Commonly known as: SYNTHROID Take 1 tablet by mouth once daily. Take on empty stomach. For thyroid. pantoprazole DR 40 mg tablet Commonly known as: PROTONIX Take 1 tablet by mouth daily before breakfast. Take on empty stomach, 1/2 hr before meal. SUMAtriptan 100 mg tablet Commonly known as: IMITREX One table by mouth with onset of headache. Can repeat in and hour but only 2 tabs in 24 hrs. Cristina Alejandro (Ingeniatrics) PAGER: [phone] July 28, 2017 9:49 AM BRIEF OP NOT Observed: 07/28/2017 Status: COMPLETED Source: [place] 8:24 AM [facility] REPOSITORY HNO ID: [id number] Author: Maye Avina Service: General Surgery Author Type: Physician Type: Brief Op Note Filed: 07/28/2017 8:29 AM Note Text: BRIEF OPERATIVE / PROCEDURE NOTE LOG ID: [id number] Surgery/Procedure Date: 07/28/2017 Incision/Procedure Start Time: 7:49 AM Incision Close/Procedure End Time: 8:08 AM Surgeon(s)/Proceduralist(s) and Wood Tile Installation Helper(s): Surgeon(s) and Role: * Maye Avina - Primary Nurse Practitioner: Kate Aguero Procedure(s): hemorrhoidectomy Anesthesia: Monitored Anesthesia Care Findings: see report Estimated Blood Loss: min Specimens: 1 Complications: None Pre-Op/Pre-Procedure Diagnosis: Prolapsed internal hemorrhoids Post-Op/Post-Procedure Diagnosis: same # [id number] SIGNATURE: Maye Avina MD PATIENT NAME: Yunier Patiño DATE: July 28, 2017 TIME: 8:26 AM PAGER/CONTACT #: NURSING PROG Observed: 07/28/2017 Status: COMPLETED Source: [place] 8:17 AM [facility] REPOSITORY HNO ID: [id number] Author: Sirena (Rn) SANJANA Bourne Service: Nursing Author Type: Registered Nurse Type: Nursing Progress Note Filed: 07/28/2017 9:13 AM Note Text: 0817 pt to PACU. Awakes briefly to VS, remains drowsy. GUERRERO TCx4. Denies pain. Guillermina pad AND mesh panties in place. PIV DANDI. VSS no s/sx of distress. 0910 report called to Tigist ALLAN in ASCU. 0915 pt to ASCU. SURGICAL PATHOLOGY Observed: 07/28/2017 Status: F Source: [place] 8:15 AM [facility] REPOSITORY Specimen originated from [facility] Specimen #: [id number] Submitting Physician: Maye Avina M.D. FINAL DIAGNOSIS Anus, hemorrhoidectomy - Anal mucosa with underlying ectatic blood vessels consistent with hemorrhoid. /brday/07/29/17 Leeroy Carmona MD, Ph.D. (Electronic Signature) SPECIMEN SUBMITTED A: HEMORRHOIDS CLINICAL DATA INTERNAL/EXTERNAL HEMORRHOIDS, LMP: NA HEMORRHOIDECTOMY GROSS DESCRIPTION A. Received in formalin labeled hemorrhoids are segments of partially mucosal-covered tissue aggregating to 3.0 x 2.0 x 1.0 cm. The mucosal surfaces are wrinkled pink-gilbert and focally hemorrhagic. The cut surfaces are hemorrhagic. Creative Services Manager sections are submitted in one cassette. Erasmo 07/28/2017 [place] [address] Date of Report: 07/29/2017 Date of Procedure: 07/28/2017 Date of Receipt: 07/28/2017 Submitted by: Maye Avina M.D. Location: [facility] Diagnostic interpretation performed at [place] [address]. Performed By: #### PATHS #### [employer] [place] [address] [phone] HISTORY PHYSICAL Observed: 07/28/2017 Status: COMPLETED Source: [place] 7:31 AM CLIN[facility] OTHER CAMPUS REPOSITORY HNO ID: [id number] Author: Maye Avina Service: General Surgery Author Type: Physician Type: HANDP Filed: 07/28/2017 7:31 AM Note Text: UPDATED HISTORY AND PHYSICAL EXAMINATION PATIENT NAME: Yunier Patiño DATE of SERVICE: 07/28/2017 TIME of SERVICE: 7:31 AM PHYSICAL EXAM MUST BE COMPLETED ON ADMISSION The History and Physical (completed in the past 30 days) has been reviewed and the patient has been examined. The contents accurately reflect the patient's condition with the following additions or revisions since the HANDP was completed. Examination indicates no changes This HANDP can be found in the EMR dated 07/21/2017. SIGNATURE: Maye Avina MD DATE: July 28, 2017 TIME: 7:31 AM ANES PREOP Observed: 07/28/2017 Status: COMPLETED Source: [place] 7:01 AM CL[facility] OTHER CAMPUS REPOSITORY O ID: [id number] Author: Simone Luevano MD Service: Anesthesiology Author Type: Anesthesiologist Type: Anesthesia PreOp Filed: 07/28/2017 7:03 AM Note Text: ANESTHESIOLOGY DAY OF SURGERY NOTE SERVICE DATE: 07/28/2017 SERVICE TIME: 0700 : 1960 Procedure(s) (LRB): HEMORRHOIDECTOMY EXTERNAL AND INTERNAL 2 OR MORE COLUMNS/GROUPS (N/A) Surgeon(s): Maye Avina Estimated body mass index is 35.93 kg/(m2) as calculated from the following: Height as of this encounter: 160 cm (5' 3). Weight as of this encounter: 92 kg (202 lb 13.2 oz). Most recent hematocrit and potassium results: Hematocrit 44.7 05/13/2016 Potassium 4.3 05/13/2016 ANES DOS/PREOP NOTE: Vitals: 07/28/17 0633 BP: 111/70 Pulse: 74 Resp: 16 Temp: 36.2 ?C (97.2 ?F) TempSrc: Temporal Artery SpO2: 97% Weight: 92 kg (202 lb 13.2 oz) Height: 160 cm (5' 3) ACTIVE PROBLEM LIST Migraine Without Aura and Without Status Migrainosus, Not Intractable Acquired Hypothyroidism Encounter for Screening for Diabetes Mellitus Encounter for Screening for Cardiovascular Disorders Encounter for Gynecological Examination Without Abnormal Finding Chronic Obstructive Pulmonary Disease (Hcc) Hemorrhoids, Internal, With Bleeding Well Adult Exam Prolapsed Internal Hemorrhoids PAST MEDICAL HISTORY Diagnosis Date - COPD (chronic obstructive pulmonary disease) (HCC) - Headache(784.0) starting 47 years old - Hypothyroidism 06/11/2012 PAST SURGICAL HISTORY Procedure Laterality Date - CHOLECYSTECTOMY 07/17/2015 - COLONOSCOP W/ OR W/O BRSH SPEC 09/13/13 few diverticula, repeat 10 yrs - EGD W/O BRSH SPECIMEN W/BX 09/13/13 gastritis - FECAL OCCULT BLOOD TEST 07/16/2017 negative - LIGATION OF HEMORRHOID(S) 05/05/2016 - PAST SURGICAL HISTORY OF - PAST SURGICAL HISTORY OF breast cyst, right? - REMOVAL OF TONSILS,<14 Y/O Tonsillectomy - REVISE MEDIAN N/CARPAL TUNNEL SURG 05/26/12 Carpal tunnel decomp-bilateral - TOOTH EXTRACTION ~2009 all teeth extracted - TOTAL ABDOM HYSTERECTOMY 1994 KENNEDY, ovaries? menorrhagia, benign FAMILY HISTORY Problem Relation Age of Onset - Ischemic Heart Disease Father 68 [place] 72 - Prostate Cancer Father - Coronary Artery Disease Father early 50's - ischemic bowel disease [OTHER] Father ?diverticulosis - Alzheimer's Disease Maternal Grandmother - Lipids Mother - Thyroid Mother - Thyroid Sister Social History: Social History Substance Use Topics - Smoking status: Former Smoker Packs/day: 0.50 Years: 20.00 Types: Cigarettes Quit date: 05/18/2008 - Smokeless tobacco: Never Used - Alcohol use No No current facility-administered medications on file prior to encounter. Current Outpatient Prescriptions on File Prior to Encounter: levothyroxine (SYNTHROID) 50 mcg tablet Take 1 tablet by mouth once daily. Take on empty stomach. For thyroid. albuterol HFA (PROVENTIL HFA, VENTOLIN HFA) 90 mcg/actuation inhaler Inhale 2 Puffs as instructed every 6 hours as needed. pantoprazole DR (PROTONIX) 40 mg tablet Take 1 tablet by mouth daily before breakfast. Take on empty stomach, 1/2 hr before meal. ALBUTEROL INHALATION Inhale as instructed. SUMAtriptan (IMITREX) 100 mg tablet One table by mouth with onset of headache. Can repeat in and hour but only 2 tabs in 24 hrs. EPINEPHrine 0.3 mg/0.3 mL auto-injector Inject 0.3 mL intramuscularly as needed. Current Facility-Administered Medications: lactated ringers infusion 5-30 mL/hr INTRAVENOUS CONTINUOUS Divina (Santhosh Amin Last Rate: 30 mL/hr at 07/28/17636 30 mL/hr at 07/28/17636 Allergies: ALLERGIES Allergen Reactions - Laguna Swelling - Ciprofloxacin Other: See Comments Chest tightness - Dust Swelling - Insect Parts Swelling, Shortness of Breath, Myalgia Pt not sure what bit her but developed redness,difficulty swallowing and swelling of face and neck - Morphine Vomiting - Pollen Swelling DOS EXAM: Adequate NPO status: Yes Anesthetic risks, benefits, alternatives, personnel and consent discussed: Yes Patient agrees to proceed: Yes Previous Anesthesia: No history of adverse event. Airway Assessment: MP 1; Neck ROM: Full ROM without neurologic symptoms; Airway Evaluation: Short Neck and Short Thyromental Distance Symptoms of Sleep Apnea: Snoring and Age over 50 (56 year old) Dentition: Edentulous Additional Physical Exam: Lungs: Patient health status unchanged since recent history and physical. See history and physical for exam findings. Cardiac: Patient health status unchanged since recent history and physical. See history and physical for exam findings. Blood Products: Not anticipated for this procedure. Anesthetic Plan: MAC with Sedation Pain Management Plan: Parenteral or Oral ASA Class: 3 Chronic Beta Eli medication administered within 24 hours: N/A I have interviewed and examined the patient. I have reviewed the medical record and/or the pre-anesthesia evaluation, pertinent labs, and test results. Significant changes in the patient's condition since the History and Physical, not otherwise documented in primary service progress notes: No This contains updated information obtained within 48 hours of Surgery/Procedure. SIGNATURE: Simone Luevano MD PATIENT NAME: Yunier Patiño DATE: July 28, 2017 TIME: 7:02 AM CSN: [id number] PT ED Observed: 07/28/2017 Status: COMPLETED Source: [place] 6:36 AM [facility] REPOSITORY HNO ID: [id number] Author: Natalya Leigh RN Service: (none) Author Type: Registered Nurse Type: Patient Education Filed: 07/28/2017 6:36 AM Note Text: PRE OP LEARNING ASSESSMENT PROCEDURE/SURGERY: SURGERY: Hemorrhoidectomy READINESS TO LEARN COGNITIVE ABILITY: Alert and oriented MOTIVATION TO LEARN: Interested FAMILY SUPPORT: High - Very involved in pt care PATIENT LEARNS BEST BY: Verbal Instruction FACTORS AFFECTING LEARNING: None PHYSICAL LIMITATIONS AFFECTING LEARNING: Pain Electronically Signed By: Natalya Leigh RN In Department: [facility] SURGERY OPERATIVE NO Observed: 07/28/2017 Status: COMPLETED Source: [place] 12:00 AM [facility] OTHER [place] REPOSITORY HNO ID: [id number] Author: Maye Avina Service: General Surgery Author Type: Physician Type: Operative Report Filed: 07/28/2017 10:02 AM Note Text: [facility]- Operative Report YUNIER PATIÑO : 1960 AGE: 56 SEX: F [facility] [id number] [facility] LOCATION: [facility] ATTENDING PHYSICIAN: Maye Avina M.D. DATE OF PROCEDURE: 07/28/2017 SURGEON: Maye Avina M.D. BEEF SPLITTER: NONE ANESTHESIA: Monitored anesthesia. PREOPERATIVE DIAGNOSIS(ES): Prolapsed internal hemorrhoids. POSTOPERATIVE DIAGNOSIS(ES): Prolapsed internal hemorrhoids. NAME OF OPERATION: Hemorrhoidectomy. INDICATIONS: The patient is a 56-year-old female, who presents with symptomatic prolapsed internal hemorrhoids. She has excess perianal tissue causing issues with hygiene and excoriation. She now presents for excision for symptom control. Risks including bleeding, infection, and recurrence were explained. She understands that all of the external hemorrhoidal tissue will not be able to be removed. ESTIMATED BLOOD LOSS: Minimal blood loss. PROCEDURE START TIME: 7:49 a.m. PROCEDURE END TIME: 8:08 a.m. PROCEDURE: The patient was identified and brought to the operating room, placed in supine position. After monitored anesthesia was obtained, she was placed into the high lithotomy position. The perianal area was then prepped and draped in sterile fashion. A pudendal block was then performed with Exparel mixed with saline. This was in a 20 mL to 10 mL mixture. 5 mL were placed bilaterally. The Exparel was then injected around the perianal area. The patient had prolapsed external hemorrhoids, mainly in the posterior and right posterior positions. The anoscope was inserted. Attention was first turned to the posterior hemorrhoids. Again, they were anesthetized with local anesthetic. The pile clamp was placed at the base. The hemorrhoid was excised with a scalpel. Specimen was sent to Pathology. The incision was then oversewn with a 3-0 chromic in a running locking fashion. The second most prominent area was in the right posterior position. This was again anesthetized, clamped, and excised. The area was oversewn with a 3- 0 chromic in a running locking fashion. She did have some mild disease in the left lateral position, but was too small to remove at this time. There was minimal bleeding. All counts were correct at the end of the case. The patient tolerated the procedure well. She was taken to recovery room in good condition. Maye Avina M.D. General Surgery KED:[id number] /[id number] NURSING PROG Observed: 07/27/2017 Status: COMPLETED Source: [place] 8:21 AM CLINIC OTHER CAMPUS REPOSITORY HNO ID: [id number] Author: Skye (Rn) SANJANA Silva Service: (none) Author Type: Registered Nurse Type: Nursing Progress Note Filed: 07/27/2017 10:23 AM Note Text: PACC Nurse Progress Note History AND Physical: PACC Visit Date: N/A Original HANDP Date: 07/16 ED visit Date: N/A Outside HANDP Scanned Date: N/A Labs Within Last 6 Months: N/A Imaging Within Last 12 Months: N/A Cardiac Testing: N/A Last Menstrual Period: LMP Date: N/A Postmenopausal >1yr: N/A, S/P Hysterectomy: Yes BMI Percentile (PEDS): N/A Risk Assessment: N/A Anesthesia Review: N/A Narrative: N/A Pre-op Considerations: N/A Chart Check: COMPLETE Skye Silva RN July 27, 2017 8:21 AM Pre op instructions reviewed with patients mother. States understanding, denies questions. My name and number left if patient has questions for me. PATIENT PREOPERATIVE INSTRUCTIONS No ref. provider found has scheduled you for your procedure at this surgery center: [facility]: [phone] -- [address] [facility] [id number]. Please read below carefully for your personalized instructions. Blood Thinning Medications: - Stop NSAIDS (Ibuprofen, Advil, Aleve, Motrin, Celebrex, Mobic, etc.) now days before surgery, as directed by your surgeon. - Stop Vitamin E, ALL multi-vitamins, herbals and dietary supplements now days before surgery. Dietary Restrictions: - Nothing to eat or drink after midnight except for a sip of water with approved medications. - Do not drink any alcohol after midnight the night before your surgery. Pain Medications: Medications: Approved medications to take the morning of surgery with a sip of water: Synthroid and protonix if necessary If you start any new medications after today's visit, please contact the surgery center above. Important Reminders: - If you are prescribed inhalers for breathing, continue using them AND bring them to the surgery center. - Candy, mints, gum and tobacco products are NOT permitted the morning of surgery. - Hearing aids, dentures and glasses may be worn the morning of surgery. - NO jewelry, body piercings, makeup, nail czech, hairpins or contacts are to be worn the day of surgery. shower with antibacterial soap If you develop symptoms such as a fever, cold, or flu, or have other changes to your health within TWO DAYS of scheduled surgery or the morning of surgery, please contact the surgery center above. Personal Belongings: - Leave ALL valuables and money at home or with family members. For Outpatient Procedures: - YOU MUST HAVE A RESPONSIBLE DRUG ROOM CLERK TAKE YOU HOME. A SLOT SHIFT SUPERVISOR OR ORE DIGGER CANNOT BE MADE A RESPONSIBLE DRUG ROOM CLERK. - We recommend that a responsible person stays with you overnight to take care of you. - You cannot stay in a hotel alone after outpatient surgery. You will not be permitted to have your surgery, if you do not have someone to take care of you. Arrival Time for Surgery: [facility] Please be aware that emergency situations arise, which may delay or change your surgical time. If this happens, we will notify you as soon as possible and regret any inconvenience. Skye Silva RN PROGRESS Observed: 07/22/2017 Status: COMPLETED Source: [place] 2:00 PM [facility] REPOSITORY HNO ID: [id number] Author: Maye Avina Service: (none) Author Type: Physician Type: Progress Notes Filed: 07/22/2017 2:04 PM Note Text: PROGRESS NOTES PATIENT NAME: Yunier Patiño Assessment ASSESSMENT/PLAN: (K64.8) Prolapsed internal hemorrhoids (primary encounter diagnosis) Yunier presents with persistent prolapsed internal hemorrhoids. Her preoperative symptoms including bleeding have resolved however she continues to have excess prolapsing tissue causing issues with hygiene, excoriation, and friction. We discussed proceeding with hemorrhoidectomy. Risks including bleeding, infection, and persistent excess tissue were explained and she would like to proceed. She understands that all of the tissue will not be able to be removed. No orders found for this visit on 07/21/17. SUBJECTIVE CHIEF COMPLAINT: Patient presents with: Consult: Possible Hemorrhoids INTERVAL HISTORY OF PRESENT ILLNESS: Yunier is a 56-year-old female known to me from previous surgeries. In April 2016 she had a Doppler guided hemorrhoidal artery ligation. Postoperatively she had severe constipation and impaction. Her preoperative symptoms at that time improved. This mainly included bleeding. She continues however to have excess perianal tissue causing friction and excoriation. She has had no further bleeding. Overall she is frustrated with these symptoms. She presents today to discuss hemorrhoidectomy. HISTORIES: PAST MEDICAL HISTORY Diagnosis Date - COPD (chronic obstructive pulmonary disease) (HCC) - Headache(784.0) starting 47 years old - Hypothyroidism 06/11/2012 PAST SURGICAL HISTORY Procedure Laterality Date - CHOLECYSTECTOMY 07/17/2015 - COLONOSCOP W/ OR W/O BRSH SPEC 09/13/13 few diverticula, repeat 10 yrs - EGD W/O BRS SPECIMEN W/BX 09/13/13 gastritis - FECAL OCCULT BLOOD TEST 07/16/2017 negative - LIGATION OF HEMORRHOID(S) 05/05/2016 - PAST SURGICAL HISTORY OF - PAST SURGICAL HISTORY OF breast cyst, right? - REMOVAL OF TONSILS,<14 Y/O Tonsillectomy - [facility] N/CARPAL TUNNEL SURG 05/26/12 Carpal tunnel decomp-bilateral - TOOTH EXTRACTION ~2009 all teeth extracted - TOTAL ABDOM HYSTERECTOMY 1994 [place], ovaries? menorrhagia, benign ALLERGIES: Laguna; Ciprofloxacin; Dust; Insect Parts; Morphine; Pollen MEDICATIONS: Current Outpatient Prescriptions: levothyroxine (SYNTHROID) 50 mcg tablet Take 1 tablet by mouth once daily. Take on empty stomach. For thyroid. albuterol HFA (PROVENTIL HFA, VENTOLIN HFA) 90 mcg/actuation inhaler Inhale 2 Puffs as instructed every 6 hours as needed. pantoprazole DR (PROTONIX) 40 mg tablet Take 1 tablet by mouth daily before breakfast. Take on empty stomach, 1/2 hr before meal. ALBUTEROL INHALATION Inhale as instructed. SUMAtriptan (IMITREX) 100 mg tablet One table by mouth with onset of headache. Can repeat in and hour but only 2 tabs in 24 hrs. EPINEPHrine 0.3 mg/0.3 mL auto-injector Inject 0.3 mL intramuscularly as needed. No current facility-administered medications for this visit. FAMILY HISTORY Problem Relation Age of Onset - Ischemic Heart Disease Father 68 [place] 72 - Prostate Cancer Father - Coronary Artery Disease Father early 50's - ischemic bowel disease [OTHER] Father ?diverticulosis - Alzheimer's Disease Maternal Grandmother - Lipids Mother - Thyroid Mother - Thyroid Sister Social History Marital status: Single Spouse name: Years of education: Number of children: 2 Occupational History Occupation Employer [employer] Social History Main Topics Smoking status: Former Smoker Packs/day: 0.50 Years: 20.00 Types: Cigarettes Quit date: 05/18/2008 Smokeless status: Never Used Alcohol use: No Drug use: No Sexual activity: Yes Partners with: Male control/protection: Surgical Social History Narrative from her since 1990 ( did not show twice for divorce). OBJECTIVE PHYSICAL EXAM: BP 131/86 Pulse 81 Ht 5' 3 (1.60m) Wt 202 lb (91.6kg) BMI 35.79 kg/(m2). General: Well developed, well-nourished, in no distress HEENT: Normocephalic, atraumatic. Extraocular movements intact. Sclera are nonicteric. Heart: Regular rate and rhythm, no murmur Lungs: Clear to auscultation, without wheezes Abdomen: Soft, non tender, positive bowel sounds, no masses, no hernia Rectal: On external exam there are mildly inflamed prolapsed internal hemorrhoids with excess perianal tissue, no palpable mass on internal exam. The excess tissue is mainly in the left posterior position. Extremities: No edema Neurologic: Alert, oriented, and appropriate. DATA: Diagnostic tests reviewed for today's visit: None Maye Avina MD CNOV Observed: 07/21/2017 Status: COMPLETED Source: [place] 2:30 PM [facility] REPOSITORY Office Visit (GENE) YUNIER PATIÑO ([id number]) 1960 F Date Time Provider Department 07/21/17 2:30 PM MAYE AVINA During your visit today, we recorded the following information about you: Pulse Blood pressure Weight Height 81/minute 131/86 91.6 kg 1.6 m Brandy Virgen RAVINDER 07/21/2017 2:38 PM Signed GENERAL:No weight loss, No malaise, No fevers HEENT:Negative for frequent or significant headaches, Positive for:, Wear glasses or contacts, No changes in hearing or vision, no nose bleeds or other nasal problemsANDquot; CARDIOVASCULAR: Negative for chest pain, Negative for leg swelling, Negative for palpitaions RESPIRATORY:Positive for:, Shortness of breath GASTROINTESTINAL: Negative for abdominal discomfort, Negative for blood in stools, Negative for black stools and Negative for change in bowel habits GENITOURINARY: No history of dysuria, frequency or incontinence. ENDOCRINE: None RECRUITING INTERN:Denies any concerns RECRUITING INTERN: Age of first period: 13 Number of pregnancies: 2 Number of live births: 2 Your age at of first child: 20 Your age at start of menopause: Hysterectomy Taking hormone replacement: No Family History of Cancer: None MUSCULOSKELETAL: Negative for joint pain or swelling, back pain or muscle pain. NEUROLOGIC:Negative for focal numbness or weakness, headaches and dizziness or syncope. HEMATOLOGIC/LYMPHATIC/IMMUNOLOGIC:Negative for prolonged bleeding, bruising easily or swollen nodes. Maye Avina MD 07/22/2017 2:04 PM Signed PROGRESS NOTES PATIENT NAME: Yunier Patiño Assessment ASSESSMENT/PLAN: (K64.8) Prolapsed internal hemorrhoids (primary encounter diagnosis) Yunier presents with persistent prolapsed internal hemorrhoids. Her preoperative symptoms including bleeding have resolved however she continues to have excess prolapsing tissue causing issues with hygiene, excoriation, and friction. We discussed proceeding with hemorrhoidectomy. Risks including bleeding, infection, and persistent excess tissue were explained and she would like to proceed. She understands that all of the tissue will not be able to be removed. No orders found for this visit on 07/21/17. SUBJECTIVE CHIEF COMPLAINT: Patient presents with: Consult: Possible Hemorrhoids INTERVAL HISTORY OF PRESENT ILLNESS: Yunier is a 56-year-old female known to me from previous surgeries. In April 2016 she had a Doppler guided hemorrhoidal artery ligation. Postoperatively she had severe constipation and impaction. Her preoperative symptoms at that time improved. This mainly included bleeding. She continues however to have excess perianal tissue causing friction and excoriation. She has had no further bleeding. Overall she is frustrated with these symptoms. She presents today to discuss hemorrhoidectomy. HISTORIES: PAST MEDICAL HISTORY Diagnosis Date - COPD (chronic obstructive pulmonary disease) (HCC) - Headache(784.0) starting 47 years old - Hypothyroidism 06/11/2012 PAST SURGICAL HISTORY Procedure Laterality Date - CHOLECYSTECTOMY 07/17/2015 - COLONOSCOP W/ OR W/O BRSH SPEC 09/13/13 few diverticula, repeat 10 yrs - EGD W/O [facility] SPECIMEN W/BX 09/13/13 gastritis - FECAL OCCULT BLOOD TEST 07/16/2017 negative - LIGATION OF HEMORRHOID(S) 05/05/2016 - PAST SURGICAL HISTORY OF - PAST SURGICAL HISTORY OF breast cyst, right? - REMOVAL OF TONSILS,ANDlt;14 Y/O Tonsillectomy - [facility] N/CARPAL TUNNEL SURG 05/26/12 Carpal tunnel decomp-bilateral - TOOTH EXTRACTION ~2009 all teeth extracted - TOTAL ABDOM HYSTERECTOMY 1994 [place], ovaries? menorrhagia, benign ALLERGIES: Laguna; Ciprofloxacin; Dust; Insect Parts; Morphine; Pollen MEDICATIONS: Current Outpatient Prescriptions: levothyroxine (SYNTHROID) 50 mcg tablet Take 1 tablet by mouth once daily. Take on empty stomach. For thyroid. albuterol HFA (PROVENTIL HFA, VENTOLIN HFA) 90 mcg/actuation inhaler Inhale 2 Puffs as instructed every 6 hours as needed. pantoprazole DR (PROTONIX) 40 mg tablet Take 1 tablet by mouth daily before breakfast. Take on empty stomach, 1/2 hr before meal. ALBUTEROL INHALATION Inhale as instructed. SUMAtriptan (IMITREX) 100 mg tablet One table by mouth with onset of headache. Can repeat in and hour but only 2 tabs in 24 hrs. EPINEPHrine 0.3 mg/0.3 mL auto-injector Inject 0.3 mL intramuscularly as needed. No current facility-administered medications for this visit. FAMILY HISTORY Problem Relation Age of Onset - Ischemic Heart Disease Father 68 [place] 72 - Prostate Cancer Father - Coronary Artery Disease Father early 50's - ischemic bowel disease [OTHER] Father ?diverticulosis - Alzheimer's Disease Maternal Grandmother - Lipids Mother - Thyroid Mother - Thyroid Sister Social History Marital status: Single Spouse name: Years of education: Number of children: 2 Occupational History Occupation Employer [employer] Social History Main Topics Smoking status: Former Smoker Packs/day: 0.50 Years: 20.00 Types: Cigarettes Quit date: 05/18/2008 Smokeless status: Never Used Alcohol use: No Drug use: No Sexual activity: Yes Partners with: Male control/protection: Surgical Social History Narrative from her since 1990 ( did not show twice for divorce). OBJECTIVE PHYSICAL EXAM: BP 131/86 Pulse 81 Ht 5' 3ANDquot; (1.60m) Wt 202 lb (91.6kg) BMI 35.79 kg/(m2). General: Well developed, well-nourished, in no distress HEENT: Normocephalic, atraumatic. Extraocular movements intact. Sclera are nonicteric. Heart: Regular rate and rhythm, no murmur Lungs: Clear to auscultation, without wheezes Abdomen: Soft, non tender, positive bowel sounds, no masses, no hernia Rectal: On external exam there are mildly inflamed prolapsed internal hemorrhoids with excess perianal tissue, no palpable mass on internal exam. The excess tissue is mainly in the left posterior position. Extremities: No edema Neurologic: Alert, oriented, and appropriate. DATA: Diagnostic tests reviewed for today's visit: None Maye Avina MD Referring Provider: SELF [[id number]] Allergies As of Date: 07/21/2017 Noted Allergy Reaction LAGUNA 06/08/2012 7 - Swelling CIPROFLOXACIN 12/17/2015 14 - Other: See Comments Comments: Chest tightness DUST 06/08/2012 7 - Swelling INSECT PARTS 03/26/2016 7 - Swelling 12 - Shortness of Breath 17 - Myalgia Comments: Pt not sure what bit her but developed redness,difficulty swallowing and swelling of face and neck MORPHINE 06/08/2012 11 - Vomiting POLLEN 06/08/2012 7 - Swelling Date Reviewed: 07/21/2017 Reviewed by: Divina Amin - Fully Assessed Reason for Visit: Consult [173] Cmt: Possible Hemorrhoids Primary Visit Diagnosis:Prolapsed internal hemorrhoids [K64.8] Prescriptions as of 07/21/2017 Sig: LEVOTHYROXINE 50 MCG TABLET Take 1 tablet by mouth once d* ALBUTEROL SULFATE HFA 90 MCG/* Inhale 2 Puffs as instructed * PANTOPRAZOLE 40 MG TABLET,DEL* Take 1 tablet by mouth daily * ALBUTEROL INHALATION Inhale as instructed. SUMATRIPTAN 100 MG TABLET One table by mouth with onset* EPINEPHRINE 0.3 MG/0.3 ML INJ* Inject 0.3 mL intramuscularly* Problem List As Of Date 07/21/2017 Noted Resolved Migraine without aura and without status migrai* Priority: A More... More... Acquired hypothyroidism [E03.9] INVALID FOR* Priority: A More... More... Encounter for screening for diabetes mellitus [*INVALID FOR* Encounter for screening for cardiovascular diso*INVALID FOR* Encounter for gynecological examination without*INVALID FOR* Priority: E More... Chronic obstructive pulmonary disease (HCC) [J4*INVALID FOR* Priority: B More... Hemorrhoids, internal, with bleeding [K64.8] INVALID FOR* Priority: C Well adult exam [Z00.00] INVALID FOR* Priority: E More... Prolapsed internal hemorrhoids [K64.8] INVALID FOR* More... Other instructions from your clinician: GENERAL:No weight loss, No malaise, No fevers HEENT:Negative for frequent or significant headaches, Positive for:, Wear glasses or contacts, No changes in hearing or vision, no nose bleeds or other nasal problems CARDIOVASCULAR: Negative for chest pain, Negative for leg swelling, Negative for palpitaions RESPIRATORY:Positive for:, Shortness of breath GASTROINTESTINAL: Negative for abdominal discomfort, Negative for blood in stools, Negative for black stools and Negative for change in bowel habits GENITOURINARY: No history of dysuria, frequency or incontinence. ENDOCRINE: None RECRUITING INTERN:Denies any concerns RECRUITING INTERN: Age of first period: 13 Number of pregnancies: 2 Number of live births: 2 Your age at of first child: 20 Your age at start of menopause: Hysterectomy Taking hormone replacement: No Family History of Cancer: None MUSCULOSKELETAL: Negative for joint pain or swelling, back pain or muscle pain. NEUROLOGIC:Negative for focal numbness or weakness, headaches and dizziness or syncope. HEMATOLOGIC/LYMPHATIC/IMMUNOLOGIC:Negative for prolonged bleeding, bruising easily or swollen nodes. Follow-up and Disposition History Recorded Letter Text Yunier Patiño Divina Eloisa MSN [employer] [place] [address] Office: [phone] To Whom It May Concern: This is to certify that Yunier Patiño was seen in my office today. She is scheduled for surgery July 28, she will need to be off work July 27 through at least August 04 if her recovery goes well. She has a follow up appointment August 04. Please do not hesitate to contact my office at the above phone number if you have any questions or concerns. Sincerely, Divina Amin MSN [employer] Encounter Status:Closed by MAYE AVINA MD on 07/22/17 HOSP Observed: 07/21/2017 Status: COMPLETED Source: [place] 12:00 AM CLINIC [facility] REPOSITORY Patient:Yunier Patiño MRN: <[id number]> Height:5' 3(1.6 m) Weight:202 lb 13.2 oz (92 kg) Outpatient Medications as of 07/28/17: levothyroxine (SYNTHROID) 50 mcg tablet albuterol HFA (PROVENTIL HFA, VENTOLIN HFA) 90 mcg/actuation inhaler pantoprazole DR (PROTONIX) 40 mg tablet ALBUTEROL INHALATION SUMAtriptan (IMITREX) 100 mg tablet EPINEPHrine 0.3 mg/0.3 mL auto-injector Admission/Clinic Administered Medications as of 07/28/17: lactated ringers infusion DR AVINA HEMORRHOID CREAM Problem List: Migraine without aura and without status migrainosus, not intractable [G43.009] Acquired hypothyroidism [E03.9] Encounter for screening for diabetes mellitus [Z13.1] Encounter for screening for cardiovascular disorders [Z13.6] Encounter for gynecological examination without abnormal finding [Z01.419] Chronic obstructive pulmonary disease (HCC) [J44.9] Hemorrhoids, internal, with bleeding [K64.8] Well adult exam [Z00.00] Prolapsed internal hemorrhoids [K64.8] Allergies: Laguna Ciprofloxacin Dust Insect Parts Morphine Pollen Date Verified: 07/28/17 Lab Values No results within the last 30 days for the following basenames: K,HCT Progress Notes ([facility]): Brandy Virgen RAVINDER 07/21/2017 2:38 PM Signed GENERAL:No weight loss, No malaise, No fevers HEENT:Negative for frequent or significant headaches, Positive for:, Wear glasses or contacts, No changes in hearing or vision, no nose bleeds or other nasal problems CARDIOVASCULAR: Negative for chest pain, Negative for leg swelling, Negative for palpitaions RESPIRATORY:Positive for:, Shortness of breath GASTROINTESTINAL: Negative for abdominal discomfort, Negative for blood in stools, Negative for black stools and Negative for change in bowel habits GENITOURINARY: No history of dysuria, frequency or incontinence. ENDOCRINE: None RECRUITING INTERN:Denies any concerns RECRUITING INTERN: Age of first period: 13 Number of pregnancies: 2 Number of live births: 2 Your age at of first child: 20 Your age at start of menopause: Hysterectomy Taking hormone replacement: No Family History of Cancer: None MUSCULOSKELETAL: Negative for joint pain or swelling, back pain or muscle pain. NEUROLOGIC:Negative for focal numbness or weakness, headaches and dizziness or syncope. HEMATOLOGIC/LYMPHATIC/IMMUNOLOGIC:Negative for prolonged bleeding, bruising easily or swollen nodes. Maye Avina MD 07/22/2017 2:04 PM Signed PROGRESS NOTES PATIENT NAME: Yunier Patiño Assessment ASSESSMENT/PLAN: (K64.8) Prolapsed internal hemorrhoids (primary encounter diagnosis) Yunier presents with persistent prolapsed internal hemorrhoids. Her preoperative symptoms including bleeding have resolved however she continues to have excess prolapsing tissue causing issues with hygiene, excoriation, and friction. We discussed proceeding with hemorrhoidectomy. Risks including bleeding, infection, and persistent excess tissue were explained and she would like to proceed. She understands that all of the tissue will not be able to be removed. No orders found for this visit on 07/21/17. SUBJECTIVE CHIEF COMPLAINT: Patient presents with: Consult: Possible Hemorrhoids INTERVAL HISTORY OF PRESENT ILLNESS: Yunier is a 56-year-old female known to me from previous surgeries. In April 2016 she had a Doppler guided hemorrhoidal artery ligation. Postoperatively she had severe constipation and impaction. Her preoperative symptoms at that time improved. This mainly included bleeding. She continues however to have excess perianal tissue causing friction and excoriation. She has had no further bleeding. Overall she is frustrated with these symptoms. She presents today to discuss hemorrhoidectomy. HISTORIES: PAST MEDICAL HISTORY Diagnosis Date - COPD (chronic obstructive pulmonary disease) (HCC) - Headache(784.0) starting 47 years old - Hypothyroidism 06/11/2012 PAST SURGICAL HISTORY Procedure Laterality Date - CHOLECYSTECTOMY 07/17/2015 - COLONOSCOP W/ OR W/O [facility] SPEC 09/13/13 few diverticula, repeat 10 yrs - EGD W/O [facility] SPECIMEN W/BX 09/13/13 gastritis - FECAL OCCULT BLOOD TEST 07/16/2017 negative - LIGATION OF HEMORRHOID(S) 05/05/2016 - PAST SURGICAL HISTORY OF - PAST SURGICAL HISTORY OF breast cyst, right? - REMOVAL OF TONSILS,<14 Y/O Tonsillectomy - [facility] N/CARPAL TUNNEL SURG 05/26/12 Carpal tunnel decomp-bilateral - TOOTH EXTRACTION ~2009 all teeth extracted - TOTAL ABDOM HYSTERECTOMY 1994 [place], ovaries? menorrhagia, benign ALLERGIES: Laguna; Ciprofloxacin; Dust; Insect Parts; Morphine; Pollen MEDICATIONS: Current Outpatient Prescriptions: levothyroxine (SYNTHROID) 50 mcg tablet Take 1 tablet by mouth once daily. Take on empty stomach. For thyroid. albuterol HFA (PROVENTIL HFA, VENTOLIN HFA) 90 mcg/actuation inhaler Inhale 2 Puffs as instructed every 6 hours as needed. pantoprazole DR (PROTONIX) 40 mg tablet Take 1 tablet by mouth daily before breakfast. Take on empty stomach, 1/2 hr before meal. ALBUTEROL INHALATION Inhale as instructed. SUMAtriptan (IMITREX) 100 mg tablet One table by mouth with onset of headache. Can repeat in and hour but only 2 tabs in 24 hrs. EPINEPHrine 0.3 mg/0.3 mL auto-injector Inject 0.3 mL intramuscularly as needed. No current facility-administered medications for this visit. FAMILY HISTORY Problem Relation Age of Onset - Ischemic Heart Disease Father 68 [place] 72 - Prostate Cancer Father - Coronary Artery Disease Father early 50's - ischemic bowel disease [OTHER] Father ?diverticulosis - Alzheimer's Disease Maternal Grandmother - Lipids Mother - Thyroid Mother - Thyroid Sister Social History Marital status: Single Spouse name: Years of education: Number of children: 2 Occupational History Occupation Employer [employer] Social History Main Topics Smoking status: Former Smoker Packs/day: 0.50 Years: 20.00 Types: Cigarettes Quit date: 05/18/2008 Smokeless status: Never Used Alcohol use: No Drug use: No Sexual activity: Yes Partners with: Male control/protection: Surgical Social History Narrative from her since 1990 ( did not show twice for divorce). OBJECTIVE PHYSICAL EXAM: BP 131/86 Pulse 81 Ht 5' 3 (1.60m) Wt 202 lb (91.6kg) BMI 35.79 kg/(m2). General: Well developed, well-nourished, in no distress HEENT: Normocephalic, atraumatic. Extraocular movements intact. Sclera are nonicteric. Heart: Regular rate and rhythm, no murmur Lungs: Clear to auscultation, without wheezes Abdomen: Soft, non tender, positive bowel sounds, no masses, no hernia Rectal: On external exam there are mildly inflamed prolapsed internal hemorrhoids with excess perianal tissue, no palpable mass on internal exam. The excess tissue is mainly in the left posterior position. Extremities: No edema Neurologic: Alert, oriented, and appropriate. DATA: Diagnostic tests reviewed for today's visit: None Maye Avina MD Progress Notes ([facility]): Hany Cota MD 07/20/2017 1:15 PM Signed Let patient know stool for blood was negative. Elizabeth Sheikh Ma 07/20/2017 2:33 PM Signed Patient notified. Elizabeth Sheikh Ma PROGRESS Observed: 07/16/2017 Status: COMPLETED Source: [place] 9:30 AM [facility] [place] REPOSITORY [facility] ID: [id number] Author: Hany Cota Service: (none) Author Type: Physician Type: Progress Notes Filed: 07/16/2017 12:44 PM Note Text: Chief Complaint Patient presents with: Recheck: 6 months Toe Pain (Toe): Right foot x 2 months HPI Yunier Patiño is a 56 year old female who presents here today for Chronic Medical Conditions.. Patient with Hx as reviewed and documented below. Has been doing ok. Had part of the right 4th toenail removed and has been doing fine but now getting a stinging pain in it and worse with walking. Other issue is she has a been having a lot of heart burn and not related to the food she eats. Gets a burning up into her throat and will belch up stomach acid. In AM has noted an acid taste in mouth. tums has helped with the burn. Past medical history, appointments, medications, allergies reviewed. Previous Medical History PAST MEDICAL HISTORY Diagnosis Date - COPD (chronic obstructive pulmonary disease) (HCC) - Headache(784.0) starting 47 years old - Hypothyroidism 06/11/2012 Previous Surgical History PAST SURGICAL HISTORY Procedure Laterality Date - CHOLECYSTECTOMY 07/17/2015 - COLONOSCOP W/ OR W/O [facility] SPEC 09/13/13 few diverticula, repeat 10 yrs - EGD W/O [facility] SPECIMEN W/BX 09/13/13 gastritis - LIGATION OF HEMORRHOID(S) 05/05/2016 - PAST SURGICAL HISTORY OF - PAST SURGICAL HISTORY OF breast cyst, right? - REMOVAL OF TONSILS,<14 Y/O Tonsillectomy - [facility] N/CARPAL TUNNEL SURG 05/26/12 Carpal tunnel decomp-bilateral - TOOTH EXTRACTION ~2009 all teeth extracted - TOTAL ABDOM HYSTERECTOMY 1994 [place], ovaries? menorrhagia, benign Family History FAMILY HISTORY Problem Relation Age of Onset - Ischemic Heart Disease Father 68 [place] 72 - Prostate Cancer Father - Coronary Artery Disease Father early 50's - ischemic bowel disease [OTHER] Father ?diverticulosis - Alzheimer's Disease Maternal Grandmother - Lipids Mother - Thyroid Mother - Thyroid Sister Patient Allergies ALLERGIES Allergen Reactions - Laguna Swelling - Ciprofloxacin Other: See Comments Chest tightness - Dust Swelling - Insect Parts Swelling, Shortness of Breath, Myalgia Pt not sure what bit her but developed redness,difficulty swallowing and swelling of face and neck - Morphine Vomiting - Pollen Swelling Current Medications Current Outpatient Prescriptions on File Prior to Visit: albuterol HFA (PROVENTIL HFA, VENTOLIN HFA) 90 mcg/actuation inhaler Inhale 2 Puffs as instructed every 6 hours as needed. ALBUTEROL INHALATION Inhale as instructed. levothyroxine (SYNTHROID) 50 mcg tablet Take 1 tablet by mouth once daily. Take on empty stomach. For thyroid. SUMAtriptan (IMITREX) 100 mg tablet One table by mouth with onset of headache. Can repeat in and hour but only 2 tabs in 24 hrs. EPINEPHrine 0.3 mg/0.3 mL auto-injector Inject 0.3 mL intramuscularly as needed. No current facility-administered medications on file prior to visit. Social History Social History Marital status: Single Spouse name: Years of education: Number of children: 2 Occupational History Occupation Employer [employer] Social History Main Topics Smoking status: Former Smoker Packs/day: 0.50 Years: 20.00 Types: Cigarettes Quit date: 05/18/2008 Smokeless status: Never Used Alcohol use: No Drug use: No Sexual activity: Yes Partners with: Male control/protection: Surgical Social History Narrative from her since 1990 ( did not show twice for divorce). Review of Symptoms REVIEW OF SYSTEMS NECK: Negative for lumps, goiter, pain and significant neck swelling RESPIRATORY: Negative for cough, hemoptysis. breathing has been stable on no more shortness of breath than typical CARDIOVASCULAR: Negative for chest pain, leg swelling, hypertension, CHF or palpitations GI: No nausea, vomiting, or diarrhea and See HPI MUSCULOSKELETAL: see HPI NEURO: No history of headaches, syncope, paralysis, seizures or tremors EXAM: BP 106/72 Pulse 76 Temp 36.8 ?C (98.2 ?F) (Tympanic) Resp 16 Wt 92.1 kg (203 lb) BMI 35.96 kg/m2 General Appearance: Well appearing, alert, in no acute distress, well-hydrated, well nourished.. Neck: Supple, no adenopathy; thyroid symmetric, normal size, no bruits. Lungs: Lungs clear to auscultation. No wheezing, rhonchi, rales. Heart: RRR without murmur, gallop, or rubs. No ectopy. Abdomen: Normal abdominal exam, Abdomen soft, non-tender. Bowel sounds normal. No masses, organomegaly. Extremities: No deformities, edema, skin discoloration, clubbing or cyanosis. Good capillary refill. . Peripheral Pulses: Normal. Health Maintenance List MAMMOGRAM due on 06/11/2018 COLORECTAL CANCER SCREENING,SEE MODIFIER due on 09/13/2018 DIABETES SCREEN due on 01/04/2020 LIPID SCREEN due on 01/03/2022 TETANUS due on 07/27/2024 INFLUENZA Completed HEPATITIS C SCREENING Completed Data reviewed Component Latest Ref Rng AND Units 01/03/2017 06/30/2017 Triglyceride 30 - 149 mg/dL 98 Cholesterol, Total 100 - 199 mg/dL 167 HDL Cholesterol >55 mg/dL 51 (L) VLDL Cholesterol 6 - 40 mg/dL 20 LDL Cholesterol 60 - 129 mg/dL 96 Fasting Time hrs 13 TC:HDL Ratio 1.00 - 5.00 3.27 LDL:HDL Ratio 0.50 - 3.55 1.88 Non HDL Cholesterol 90 - 159 mg/dL 116 Glucose, Fasting 74 - 99 mg/dL 79 TSH 0.400 - 5.500 uU/mL 2.470 3.680 A/P ASSESSMENT/PLAN: 1. Acquired hypothyroidism - ICD9: 244.9, ICD10: E03.9 (primary diagnosis) - Instructed patient on importance of taking on an empty stomach either first thing in the morning or at bedtime. - continue current dose of Synthroid 0.050 mg 2. Migraine without aura and without status migrainosus, not intractable - ICD9: 346.10, ICD10: G43.009 - Clinically stable. 3. Chronic obstructive pulmonary disease, unspecified COPD type (HCC) - ICD9: 496, ICD10: J44.9 - clinically stable with Tx. 4. Hemorrhoids, internal, with bleeding - ICD9: 455.2, ICD10: K64.8 - Patient plans to return to General Surgery for definitive Tx. 5. Epigastric pain - ICD9: 789.06, ICD10: R10.13 - New issue - Begin treatment with Protonix 40 mg QD - discussed avoidence of excessive caffeine, mints, smoking and alcohol. - Discussed lifestyle modifications including limiting caffeine and no meals three hours before sleep Signed Prescriptions Disp Refills levothyroxine (SYNTHROID) 50 mcg tablet 30 tablet 5 Sig: Take 1 tablet by mouth once daily. Take on empty stomach. For thyroid. TARSHA: No albuterol HFA (PROVENTIL HFA, VENTOLIN HFA) 90 mcg/actuation inhaler 1 Inhaler 0 Sig: Inhale 2 Puffs as instructed every 6 hours as needed. TARSHA: No pantoprazole DR (PROTONIX) 40 mg tablet 30 tablet 5 Sig: Take 1 tablet by mouth daily before breakfast. Take on empty stomach, 1/2 hr before meal. F/u 6-8 weeks epigastric pain. Patient advised to see Dr. Bishop for her foot pain since on toe that had had surgery F/u 6 months WAE check FLP, TSH, FBS and A1c prior Time with patient face to face was 25 min Hany Cota MD CNOV Observed: 07/16/2017 Status: COMPLETED Source: [place] 9:20 AM [facility] REPOSITORY Office Visit (FAMPWS) YUNIER PATIÑO ([id number]) 1960 F Date Time Provider Department 07/16/17 9:20 AM HANY COTA FAMPWS During your visit today, we recorded the following information about you: Temperature Pulse Respiration Blood pressure 98.2 degrees 76/minute 16/minute 106/72 Weight 92.1 kg Hany Cota MD 07/16/2017 12:44 PM Signed Chief Complaint Patient presents with: Recheck: 6 months Toe Pain (Toe): Right foot x 2 months HPI Yunier Patiño is a 56 year old female who presents here today for Chronic Medical Conditions.. Patient with Hx as reviewed and documented below. Has been doing ok. Had part of the right 4th toenail removed and has been doing fine but now getting a stinging pain in it and worse with walking. Other issue is she has a been having a lot of heart burn and not related to the food she eats. Gets a burning up into her throat and will belch up stomach acid. In AM has noted an acid taste in mouth. tums has helped with the burn. Past medical history, appointments, medications, allergies reviewed. Previous Medical History PAST MEDICAL HISTORY Diagnosis Date - COPD (chronic obstructive pulmonary disease) (HCC) - Headache(784.0) starting 47 years old - Hypothyroidism 06/11/2012 Previous Surgical History PAST SURGICAL HISTORY Procedure Laterality Date - CHOLECYSTECTOMY 07/17/2015 - COLONOSCOP W/ OR W/O BRS SPEC 09/13/13 few diverticula, repeat 10 yrs - EGD W/O [facility] SPECIMEN W/BX 09/13/13 gastritis - LIGATION OF HEMORRHOID(S) 05/05/2016 - PAST SURGICAL HISTORY OF - PAST SURGICAL HISTORY OF breast cyst, right? - REMOVAL OF TONSILS,ANDlt;14 Y/O Tonsillectomy - REVISE MEDIAN N/CARPAL TUNNEL SURG 05/26/12 Carpal tunnel decomp-bilateral - TOOTH EXTRACTION ~2009 all teeth extracted - TOTAL ABDOM HYSTERECTOMY 1994 [place], ovaries? menorrhagia, benign Family History FAMILY HISTORY Problem Relation Age of Onset - Ischemic Heart Disease Father 68 [place] 72 - Prostate Cancer Father - Coronary Artery Disease Father early 50's - ischemic bowel disease [OTHER] Father ?diverticulosis - Alzheimer's Disease Maternal Grandmother - Lipids Mother - Thyroid Mother - Thyroid Sister Patient Allergies ALLERGIES Allergen Reactions - Laguna Swelling - Ciprofloxacin Other: See Comments Chest tightness - Dust Swelling - Insect Parts Swelling, Shortness of Breath, Myalgia Pt not sure what bit her but developed redness,difficulty swallowing and swelling of face and neck - Morphine Vomiting - Pollen Swelling Current Medications Current Outpatient Prescriptions on File Prior to Visit: albuterol HFA (PROVENTIL HFA, VENTOLIN HFA) 90 mcg/actuation inhaler Inhale 2 Puffs as instructed every 6 hours as needed. ALBUTEROL INHALATION Inhale as instructed. levothyroxine (SYNTHROID) 50 mcg tablet Take 1 tablet by mouth once daily. Take on empty stomach. For thyroid. SUMAtriptan (IMITREX) 100 mg tablet One table by mouth with onset of headache. Can repeat in and hour but only 2 tabs in 24 hrs. EPINEPHrine 0.3 mg/0.3 mL auto-injector Inject 0.3 mL intramuscularly as needed. No current facility-administered medications on file prior to visit. Social History Social History Marital status: Single Spouse name: Years of education: Number of children: 2 Occupational History Occupation Employer [employer] Social History Main Topics Smoking status: Former Smoker Packs/day: 0.50 Years: 20.00 Types: Cigarettes Quit date: 05/18/2008 Smokeless status: Never Used Alcohol use: No Drug use: No Sexual activity: Yes Partners with: Male control/protection: Surgical Social History Narrative from her since 1990 ( did not show twice for divorce). Review of Symptoms REVIEW OF SYSTEMS NECK: Negative for lumps, goiter, pain and significant neck swelling RESPIRATORY: Negative for cough, hemoptysis. breathing has been stable on no more shortness of breath than typical CARDIOVASCULAR: Negative for chest pain, leg swelling, hypertension, CHF or palpitations GI: No nausea, vomiting, or diarrhea and See HPI MUSCULOSKELETAL: see HPI NEURO: No history of headaches, syncope, paralysis, seizures or tremors EXAM: BP 106/72 Pulse 76 Temp 36.8 ?C (98.2 ?F) (Tympanic) Resp 16 Wt 92.1 kg (203 lb) BMI 35.96 kg/m2 General Appearance: Well appearing, alert, in no acute distress, well-hydrated, well nourished.. Neck: Supple, no adenopathy; thyroid symmetric, normal size, no bruits. Lungs: Lungs clear to auscultation. No wheezing, rhonchi, rales. Heart: RRR without murmur, gallop, or rubs. No ectopy. Abdomen: Normal abdominal exam, Abdomen soft, non-tender. Bowel sounds normal. No masses, organomegaly. Extremities: No deformities, edema, skin discoloration, clubbing or cyanosis. Good capillary refill. . Peripheral Pulses: Normal. Health Maintenance List MAMMOGRAM due on 06/11/2018 COLORECTAL CANCER SCREENING,SEE MODIFIER due on 09/13/2018 DIABETES SCREEN due on 01/04/2020 LIPID SCREEN due on 01/03/2022 TETANUS due on 07/27/2024 INFLUENZA Completed HEPATITIS C SCREENING Completed Data reviewed Component Latest Ref Rng ANDamp; Units 01/03/2017 06/30/2017 Triglyceride 30 - 149 mg/dL 98 Cholesterol, Total 100 - 199 mg/dL 167 HDL Cholesterol ANDgt;55 mg/dL 51 (L) VLDL Cholesterol 6 - 40 mg/dL 20 LDL Cholesterol 60 - 129 mg/dL 96 Fasting Time hrs 13 TC:HDL Ratio 1.00 - 5.00 3.27 LDL:HDL Ratio 0.50 - 3.55 1.88 Non HDL Cholesterol 90 - 159 mg/dL 116 Glucose, Fasting 74 - 99 mg/dL 79 TSH 0.400 - 5.500 uU/mL 2.470 3.680 A/P ASSESSMENT/PLAN: 1. Acquired hypothyroidism - ICD9: 244.9, ICD10: E03.9 (primary diagnosis) - Instructed patient on importance of taking on an empty stomach either first thing in the morning or at bedtime. - continue current dose of Synthroid 0.050 mg 2. Migraine without aura and without status migrainosus, not intractable - ICD9: 346.10, ICD10: G43.009 - Clinically stable. 3. Chronic obstructive pulmonary disease, unspecified COPD type (HCC) - ICD9: 496, ICD10: J44.9 - clinically stable with Tx. 4. Hemorrhoids, internal, with bleeding - ICD9: 455.2, ICD10: K64.8 - Patient plans to return to General Surgery for definitive Tx. 5. Epigastric pain - ICD9: 789.06, ICD10: R10.13 - New issue - Begin treatment with Protonix 40 mg QD - discussed avoidence of excessive caffeine, mints, smoking and alcohol. - Discussed lifestyle modifications including limiting caffeine and no meals three hours before sleep Signed Prescriptions Disp Refills levothyroxine (SYNTHROID) 50 mcg tablet 30 tablet 5 Sig: Take 1 tablet by mouth once daily. Take on empty stomach. For thyroid. TARSHA: No albuterol HFA (PROVENTIL HFA, VENTOLIN HFA) 90 mcg/actuation inhaler 1 Inhaler 0 Sig: Inhale 2 Puffs as instructed every 6 hours as needed. TARSHA: No pantoprazole DR (PROTONIX) 40 mg tablet 30 tablet 5 Sig: Take 1 tablet by mouth daily before breakfast. Take on empty stomach, 1/2 hr before meal. F/u 6-8 weeks epigastric pain. Patient advised to see Dr. Bishop for her foot pain since on toe that had had surgery F/u 6 months WAE check FLP, TSH, FBS and A1c prior Time with patient face to face was 25 min MD Hany Acevedo MD 07/16/2017 9:47 AM Signed Please get fasting labs on or after 01/08/2018 prior to next visit Referring Provider: HANY COTA [[id number]] Allergies As of Date: 07/16/2017 Noted Allergy Reaction LAGUNA 06/08/2012 7 - Swelling CIPROFLOXACIN 12/17/2015 14 - Other: See Comments Comments: Chest tightness DUST 06/08/2012 7 - Swelling INSECT PARTS 03/26/2016 7 - Swelling 12 - Shortness of Breath 17 - Myalgia Comments: Pt not sure what bit her but developed redness,difficulty swallowing and swelling of face and neck MORPHINE 06/08/2012 11 - Vomiting POLLEN 06/08/2012 7 - Swelling Date Reviewed: 07/16/2017 Reviewed by: Hany Cota - Fully Assessed Reason for Visit: Recheck [92] Cmt: 6 months Toe Pain (Toe) [761] Cmt: Right foot x 2 months Reason For Visit History Recorded Primary Visit Diagnosis:Acquired hypothyroidism [E03.9] Other Visit Diagnoses:Migraine without aura and without status migrainosus, not intractable [G43.009] Chronic obstructive pulmonary disease, unspecified COPD type (HCC) [J44.9] Hemorrhoids, internal, with bleeding [K64.8] Epigastric pain [R10.13] Encounter for screening for diabetes mellitus [Z13.1] Encounter for screening for cardiovascular disorders [Z13.6] Order(s):levothyroxine (SYNTHROID) 50 mcg tabletTake 1 tablet by mouth once daily. Take on empty stomach. For thyroid.Disp: 30 tabletRfl: 5 albuterol HFA (PROVENTIL HFA, VENTOLIN HFA) 90 mcg/actuation inhalerInhale 2 Puffs as instructed every 6 hours as needed.Disp: 1 InhalerRfl: [address] (PROTONIX) 40 mg tabletTake 1 tablet by mouth daily before breakfast. Take on empty stomach, 1/2 hr before meal.Disp: 30 tabletRfl: 5 LIPID PANEL BASIC [SQLIPB] Order #: [id number] FUTURE HGB A1C [QEXVY4B] Order #: [id number] FUTURE GLUCOSE FASTING BLD [SQGLF] Order #: [id number] FUTURE TSH BLD [SQTSH] Order #: [id number] FUTURE Prescriptions as of 07/16/2017 Sig: LEVOTHYROXINE 50 MCG TABLET Take 1 tablet by mouth once d* ALBUTEROL SULFATE HFA 90 MCG/* Inhale 2 Puffs as instructed * ALBUTEROL INHALATION Inhale as instructed. SUMATRIPTAN 100 MG TABLET One table by mouth with onset* EPINEPHRINE 0.3 MG/0.3 ML INJ* Inject 0.3 mL intramuscularly* PANTOPRAZOLE 40 MG TABLET,DEL* Take 1 tablet by mouth daily * Problem List As Of Date 07/16/2017 Noted Resolved Migraine without aura and without status migrai* Priority: A More... More... Acquired hypothyroidism [E03.9] INVALID FOR* Priority: A More... More... Encounter for screening for diabetes mellitus [*INVALID FOR* Encounter for screening for cardiovascular diso*INVALID FOR* Encounter for gynecological examination without*INVALID FOR* Priority: E More... Chronic obstructive pulmonary disease (HCC) [J4*INVALID FOR* Priority: B More... Hemorrhoids, internal, with bleeding [K64.8] INVALID FOR* Priority: C Well adult exam [Z00.00] INVALID FOR* Priority: E More... Other instructions from your clinician: Please get fasting labs on or after 01/08/2018 prior to next visit Prescriptions ordered this encounter Disp Refills Start End LEVOTHYROXINE 50 MCG TABLET 30 t* 5 07/16/2017 Route: ORAL Sig: Take 1 tablet by mouth once daily. Take on empty stomach. For thyroid. ALBUTEROL SULFATE HFA 90 MCG/ACTUATI* 1 In* 0 07/16/2017 Route: INHALATION Sig: Inhale 2 Puffs as instructed every 6 hours as needed. PANTOPRAZOLE 40 MG TABLET,DELAYED RE* 30 t* 5 07/16/2017 Route: ORAL Sig: Take 1 tablet by mouth daily before breakfast. Take on empty stomach, 1/2 hr before meal. Medications Discontinued During This Encounter levothyroxine (SYNTHROID) 50 mcg tab* 30 t* 5 01/06/2017 07/16/2017 Route: ORAL Sig: Take 1 tablet by mouth once daily. Take on empty stomach. For thyroid. Disc: Reason for discontinue is not on file. albuterol HFA (PROVENTIL HFA, VENTOL* 1 In* 0 04/14/2017 07/16/2017 Route: INHALATION Sig: Inhale 2 Puffs as instructed every 6 hours as needed. Disc: Reason for discontinue is not on file. Disposition: Return in about 6 months (around 01/16/2018) for complete PE. Follow-up and Disposition History Recorded Encounter Status:Closed by HANY COTA on 07/16/17 FECAL OCCULT BLD Collected: 07/14/2017 Status: F Source: [facility] 7:00 AM [facility] REPOSITORY TYPE CODE TESTS RESULT OUT OF REFERENCE UNITS RANGE LAB IFO Negative Immuno Negative FOB Result Comment: This test was developed and its performance characteristics determined by [facility]'s [facility] (-[facility]). It has not been cleared or approved by the FDA. [facility] is regulated under CLIA as qualified to perform high-complexity testing. This test is used for clinical purposes. It should not be regarded as investigational or for research. Performed By: #### IFOBT #### [facility] [employer] [address] [place], [place] [address] TSH Collected: 06/30/2017 Status: F Source: [place] 11:50 AM [facility] REPOSITORY TYPE CODE TESTS RESULT OUT OF RANGE REFERENCE UNITS LAB TSH 0.400-5.500 uU/mL TSH 3.680 Performed By: #### TSH #### [facility] [employer] [address] [place], [place] [address] CNCO Observed: 06/11/2017 Status: COMPLETED Source: [place] 1:43 PM [facility] REPOSITORY HNO ID: [id number] Author: Mammography Coordinator Service: (none) Author Type: Physician Type: Letter Filed: 06/15/2017 11:32 PM Note Text: June 11, 2017 PID: [id number] Yunier Patiño [address], [place] [address] Dear Ms. Patiño, We are pleased to inform you that the results of your recent breast imaging exam on 06/11/2017 are normal. Early detection of cancer is very important. We also understand recommendations regarding breast cancer screening are controversial. Please discuss with your primary care provider which strategy is best for you and whether a mammogram is right for you. Your imaging studies and report will be kept on file at [facility] as part of your permanent medical record and are available for your continuing care. Thank you for allowing us to help in meeting your health care needs. Sincerely, Dr. Costello Interpreting Radiologist [facility] (Normal over 40) [facility] SCREENING Observed: 06/11/2017 Status: F Source: [place] 8:15 AM [facility] REPOSITORY * * *Final Report* * * DATE OF EXAM: Jun 11 2017 8:15AM [facility] [id number] - [facility] SCREENING / PROCEDURE REASON: Encounter for screening mammogram for malignant neoplasm of breast * * * * Physician Interpretation * * * * RESULT: #[id number] - [facility] SCREENING BILATERAL DIGITAL SCREENING MAMMOGRAM WITH CAD: 06/11/2017 HISTORY: Encounter For Screening Mammogram For Malignant Neoplasm Of Breast /Screening Mammogram - patient reports NO breast symptoms /Priors available for comparison. RESULT: TECHNIQUE: The study was acquired using full field digital technology and interpreted from soft copy. Current study was also evaluated with a Computer Aided Detection (CAD). Comparison is made to exams dated: 12/24/2015 mammogram and 07/28/2014 mammogram - [facility]. The tissue of both breasts is predominantly fatty. No significant masses, calcifications, or other findings are seen in either breast. There has been no significant interval change. IMPRESSION: NEGATIVE There is no mammographic evidence of malignancy.A 1 year screening mammogram is recommended. Sharonda connell/karthik:06/11/2017 13:43:30 Director Product Management: Jane FENTON)([place]), [facility] letter sent: Normal over 40 Mammogram BI-RADS: 1 Negative Migratory Farm Hand: Karthik Transcribe Date/Time: Jun 11 2017 7:58A Dictated by: SHARONDA COSTELLO MD This examination was interpreted and the report reviewed and electronically signed by: SHARONDA COSTELLO MD on Jun 11 2017 1:43PM EST [id number] Observed: 06/09/2017 Status: COMPLETED Source: [place] 8:58 AM [facility] REPOSITORY HNO ID: [id number] Author: Jackie Rodriguezcalf Service: (none) Author Type: Nurse Practitioner Type: Progress Notes Filed: 06/09/2017 9:37 AM Note Text: Yunier Patiño is a 56 year old No obstetric history on file. who presents for her annual gynecologic exam without complaints. Postmenopausal: Yes since 1994 [place] HRT use: No. Last Pap: KENNEDY History of abnormal pap: No Last mammogram: 2016 normal History of abnormal mammogram: Yes cyst Sexually active: Yes Patient concerns for STD exposure: No. Pain with intercourse: No Postcoital bleeding: No Hot flashes: No Night sweats: No Vaginal dryness: No @OB(<SYNTAX> error)@ PAST MEDICAL HISTORY Diagnosis Date - COPD (chronic obstructive pulmonary disease) (HCC) - Headache(784.0) starting 47 years old - Hypothyroidism 06/11/2012 PAST SURGICAL HISTORY Procedure Laterality Date - CHOLECYSTECTOMY 07/17/2015 - COLONOSCOP W/ OR W/O BRSH SPEC 09/13/13 few diverticula, repeat 10 yrs - EGD W/O BRSH SPECIMEN W/BX 09/13/13 gastritis - LIGATION OF HEMORRHOID(S) 05/05/2016 - PAST SURGICAL HISTORY OF - PAST SURGICAL HISTORY OF breast cyst, right? - REMOVAL OF TONSILS,<14 Y/O Tonsillectomy - REVISE MEDIAN N/CARPAL TUNNEL SURG 05/26/12 Carpal tunnel decomp-bilateral - TOOTH EXTRACTION ~2009 all teeth extracted - TOTAL ABDOM HYSTERECTOMY 1994 [place], ovaries? menorrhagia, benign FAMILY HISTORY Problem Relation Age of Onset - Ischemic Heart Disease Father 68 [place] 72 - Prostate Cancer Father - Coronary Artery Disease Father early 50's - ischemic bowel disease [OTHER] Father ?diverticulosis - Alzheimer's Disease Maternal Grandmother - Lipids Mother - Thyroid Mother - Thyroid Sister SOCIAL HISTORY Social History Substance Use Topics - Smoking status: Former Smoker Packs/day: 0.50 Years: 20.00 Types: Cigarettes Quit date: 05/18/2008 - Smokeless tobacco: Never Used - Alcohol use No REVIEW OF SYSTEMS Abdomen: No abdominal pain, nausea, vomiting, diarrhea, or constipation. No bloating, early satiety, indigestion, or increased flatulence. Bladder: No dysuria, gross hematuria, urinary frequency, urinary urgency, or incontinence Breast: No breast lumps, nipple d/c, overlying skin changes, redness or skin retraction Allergies and current medication updated:Yes EXAM: There were no vitals taken for this visit. GENERAL: pleasant, female in no apparent distress HEENT: Normocephalic, atraumatic, mucus membranes moist and no lesions NECK: Supple, full range of motion, no adenopathy and thyroid normal DERMATOLOGY: Normal, without lesions, non-icteric and non-hirsute BREAST: soft, non-tender, symmetric, no dominant mass, normal nipple-areolar complex, no lymphadenopathy and no nipple discharge CHEST: Normal inspiratory effort ABDOMEN: soft, non-tender and no masses PELVIC: external genitalia normal, normal Bartholin's glands, urethra, Alma's glands, no vulvar lesions, physiologic discharge present, normal appearing perineal body and perianal region, cervix surgically absent BIMANUAL: non-tender and uterus surgically absent RECTOVAGINAL: deferred. NEURO: alert and oriented x3,exam grossly non-focal EXTREMITIES: normal ASSESSMENT/PLAN: 1) Health maintenance: Pap/HPV screening no longer needed Mammogram ordered Nutrition, exercise and routine health maintenance exams reviewed. Calcium/Vitamin D supplementation information provided. 2) Follow up one year or sooner as needed JACKIE WELLINGTON CNP CNOV Observed: 06/09/2017 Status: COMPLETED Source: [place] 8:45 AM [facility] REPOSITORY Office Visit (WOOB) YUNIER PATIÑO ([id number]) 1960 F Date Time Provider Department 06/09/17 8:45 AM JACKIE WELLINGTON (NANCI) WOOB During your visit today, we recorded the following information about you: Blood pressure Weight Height 112/68 90.7 kg 1.6 m JACKIE WELLINGTON CNP 06/09/2017 9:37 AM Signed Yunier Patiño is a 56 year old No obstetric history on file. who presents for her annual gynecologic exam without complaints. Postmenopausal: Yes since 1994 [place] HRT use: No. Last Pap: KENNEDY History of abnormal pap: No Last mammogram: 2015 normal History of abnormal mammogram: Yes cyst Sexually active: Yes Patient concerns for STD exposure: No. Pain with intercourse: No Postcoital bleeding: No Hot flashes: No Night sweats: No Vaginal dryness: No @OB(ANDlt;SYNTAXANDgt; error)@ PAST MEDICAL HISTORY Diagnosis Date - COPD (chronic obstructive pulmonary disease) (HCC) - Headache(784.0) starting 47 years old - Hypothyroidism 06/11/2012 PAST SURGICAL HISTORY Procedure Laterality Date - CHOLECYSTECTOMY 07/17/2015 - COLONOSCOP W/ OR W/O BRSH SPEC 09/13/13 few diverticula, repeat 10 yrs - EGD W/O BRS SPECIMEN W/BX 09/13/13 gastritis - LIGATION OF HEMORRHOID(S) 05/05/2016 - PAST SURGICAL HISTORY OF - PAST SURGICAL HISTORY OF breast cyst, right? - REMOVAL OF TONSILS,ANDlt;14 Y/O Tonsillectomy - REVISE MEDIAN N/CARPAL TUNNEL SURG 05/26/12 Carpal tunnel decomp-bilateral - TOOTH EXTRACTION ~2009 all teeth extracted - TOTAL ABDOM HYSTERECTOMY 1994 [place], ovaries? menorrhagia, benign FAMILY HISTORY Problem Relation Age of Onset - Ischemic Heart Disease Father 68 [place] 72 - Prostate Cancer Father - Coronary Artery Disease Father early 50's - ischemic bowel disease [OTHER] Father ?diverticulosis - Alzheimer's Disease Maternal Grandmother - Lipids Mother - Thyroid Mother - Thyroid Sister SOCIAL HISTORY Social History Substance Use Topics - Smoking status: Former Smoker Packs/day: 0.50 Years: 20.00 Types: Cigarettes Quit date: 05/18/2008 - Smokeless tobacco: Never Used - Alcohol use No REVIEW OF SYSTEMS Abdomen: No abdominal pain, nausea, vomiting, diarrhea, or constipation. No bloating, early satiety, indigestion, or increased flatulence. Bladder: No dysuria, gross hematuria, urinary frequency, urinary urgency, or incontinence Breast: No breast lumps, nipple d/c, overlying skin changes, redness or skin retraction Allergies and current medication updated:Yes EXAM: There were no vitals taken for this visit. GENERAL: pleasant, female in no apparent distress HEENT: Normocephalic, atraumatic, mucus membranes moist and no lesions NECK: Supple, full range of motion, no adenopathy and thyroid normal DERMATOLOGY: Normal, without lesions, non-icteric and non-hirsute BREAST: soft, non-tender, symmetric, no dominant mass, normal nipple-areolar complex, no lymphadenopathy and no nipple discharge CHEST: Normal inspiratory effort ABDOMEN: soft, non-tender and no masses PELVIC: external genitalia normal, normal Bartholin's glands, urethra, Alma's glands, no vulvar lesions, physiologic discharge present, normal appearing perineal body and perianal region, cervix surgically absent BIMANUAL: non-tender and uterus surgically absent RECTOVAGINAL: deferred. NEURO: alert and oriented x3,exam grossly non-focal EXTREMITIES: normal ASSESSMENT/PLAN: 1) Health maintenance: Pap/HPV screening no longer needed Mammogram ordered Nutrition, exercise and routine health maintenance exams reviewed. Calcium/Vitamin D supplementation information provided. 2) Follow up one year or sooner as needed JACKIE WELLINGTON CNP Referring Provider: SELF [[id number]] Allergies As of Date: 06/09/2017 Noted Allergy Reaction LAGUNA 06/08/2012 7 - Swelling CIPROFLOXACIN 12/17/2015 14 - Other: See Comments Comments: Chest tightness DUST 06/08/2012 7 - Swelling INSECT PARTS 03/26/2016 7 - Swelling 12 - Shortness of Breath 17 - Myalgia Comments: Pt not sure what bit her but developed redness,difficulty swallowing and swelling of face and neck MORPHINE 06/08/2012 11 - Vomiting POLLEN 06/08/2012 7 - Swelling Date Reviewed: 06/09/2017 Reviewed by: Jackie (Nanci) Chris - Fully Assessed Primary Visit Diagnosis:Encounter for gynecological examination (general) (routine) without abnormal findings [Z01.419] Other Visit Diagnosis:Encounter for screening mammogram for breast cancer [Z12.31] Order(s):[facility] SCREENING [[id number]] Order #: [id number] FUTURE Prescriptions as of 06/09/2017 Sig: ALBUTEROL SULFATE HFA 90 MCG/* Inhale 2 Puffs as instructed * ALBUTEROL INHALATION Inhale as instructed. LEVOTHYROXINE 50 MCG TABLET Take 1 tablet by mouth once d* SUMATRIPTAN 100 MG TABLET One table by mouth with onset* EPINEPHRINE 0.3 MG/0.3 ML INJ* Inject 0.3 mL intramuscularly* Problem List As Of Date 06/09/2017 Noted Resolved Migraine without aura and without status migrai* Priority: A More... More... Acquired hypothyroidism [E03.9] INVALID FOR* Priority: A More... More... Encounter for screening for diabetes mellitus [*INVALID FOR* Encounter for screening for cardiovascular diso*INVALID FOR* Encounter for gynecological examination without*INVALID FOR* Priority: E More... Chronic obstructive pulmonary disease (HCC) [J4*INVALID FOR* Priority: B More... Hemorrhoids, internal, with bleeding [K64.8] INVALID FOR* Priority: C Well adult exam [Z00.00] INVALID FOR* More... Medications Discontinued During This Encounter bismuth tribrom-petrolatum (XEROFORM* 3 Pa* 1 01/02/2017 06/09/2017 Route: TOPICAL Sig: Apply 1 application to affected area twice daily. Patient not taking: Reported on 04/13/2017 Disc: Reason for discontinue is not on file. cephALEXin (KEFLEX) 500 mg capsule 30 c* 0 04/01/2017 06/09/2017 Route: ORAL Sig: Take 1 capsule by mouth three times daily. Patient not taking: Reported on 04/13/2017 Disc: Reason for discontinue is not on file. mupirocin (BACTROBAN) 2 % ointment 1 Tu* 1 04/01/2017 06/09/2017 Route: TOPICAL Sig: Apply 1 application to affected area three times daily. Patient not taking: Reported on 04/13/2017 Disc: Reason for discontinue is not on file. zslidfds-dxzrmfrxp-towbyrufclrwel (C* 1 Gabino* 1 12/17/2016 06/09/2017 Route: OTHER Si Drops twice daily. Patient not taking: Reported on 04/13/2017 Disc: Reason for discontinue is not on file. Disposition: Return in 1 year (on 06/09/2018) for Annual Exam. Follow-up and Disposition History Recorded Encounter Status:Closed by JACKIE WELLINGTON on 06/09/17 ALLERGIES ALLERGIES DATE TYPE / NAME / CODE REACTION SEVERITY SOURCE CODE 04/13/2018 Drug ciprofloxacin/F0060 breathing issues Unknown Aliyah Allergy/41 61149(RXNORM) [facility] [id number]([facility]) Repository 11/19/2017 Drug morphine/[id number] Unknown Unknown Aliyah Allergy/41 (RXNORM) [facility] [id number]([facility]) Repository 11/19/2017 Drug gabapentin/[id number] Angioedema Unknown Albia Allergy/41 15(RXNORM) [facility] [id number]([facility]) Repository 10/14/2017 DRUG GABAPENTIN SWELLING [address] [id number]([facility]) 10/14/2017 DRUG GABAPENTIN SWELLING [place] [address] [address] [place] [id number]([facility]) 03/26/2016 Environ/42 INSECT PARTS SWELLING [facility] [id number]([facility]) Repository 03/26/2016 Environ/42 INSECT PARTS SWELLING [facility] [id number]([facility]) Repository 12/17/2015 DRUG CIPROFLOXACIN OTHER: SEE C [facility]/[address] [place] [address] [id number]([facility]) 12/17/2015 DRUG CIPROFLOXACIN OTHER: SEE C [facility] INGREDI/41 [facility] [id number](SN Repository [facility]MED [facility]) 06/08/2012 [facility]UG [facility] [place] [id number]([facility] Repository [facility]) 06/08/2012 Environ/42 DUST SWELLING [facility] [id number](SN [facility]) Repository 06/08/2012 Environ/42 POLLEN SWELLING [facility] [id number](SN [facility] [place] [facility]) Repository 06/08/2012 DRUG MORPHINE Vomiting Low [facility]41 [facility] [id number](SN Repository OMED [facility]) 06/08/2012 DRUG LAGUNA SWELLING [place] [address] [facility] [id number](SN Repository OMED [facility]) 06/08/2012 Environ/42 DUST SWELLING [facility] [id number](SN [facility]) Repository 06/08/2012 DRUG MORPHINE Vomiting [place] [address] [facility] [id number](SN Repository OMED [facility]) 06/08/2012 Environ/42 POLLEN SWELLING [facility] [id number](SN [facility]) Repository ENCOUNTERS ENCOUNTERS ADMIT/DISCHARGE ACCOUNT NUMBER ADMITTING ENCOUNTER LOCATION SOURCE CLASS 04/26/2018/04/26/20 [id number] Ambulatory [address] [place] [facility] [place] Repository 04/26/2018/04/26/20 [id number] Ambulatory [address] [place] Repository 04/26/2018/04/29/20 [id number] Ambulatory [address] [place] Repository 04/23/2018/04/23/20 [id number] Ambulatory [address] [place] [facility] [place] Repository 04/21/2018/04/21/20 [id number] Ambulatory [address] [place] [facility] [place] Repository 04/14/2018/04/19/20 [id number] Ambulatory [address] [place] [facility] [place] Repository 04/13/2018 [id number] Ambulatory [facility] Hospital ding:HPRAD Repository 04/13/2018/04/13/20 [id number] Ambulatory BMSBuilding: [address] Repository 04/07/2018/04/07/20 [id number] GABBY DAVE Ambulatory [address] Repository 04/05/2018/04/06/20 [id number] Ambulatory [facility] Repository 04/05/2018/04/05/20 [id number] Ambulatory [facility] Repository 03/26/2018/03/30/20 [id number] Ambulatory [facility] Repository 03/25/2018/03/27/20 [id number] Ambulatory [facility] Repository 03/17/2018/03/18/20 [id number] Ambulatory [facility] Repository 03/10/2018/03/12/20 [id number] Ambulatory [facility] Repository 03/10/2018/03/10/20 [id number] ROBIN, Ambulatory [address] [place] Repository 02/24/2018/02/25/20 [id number] Ambulatory [facility] Repository 02/24/2018/02/27/20 [id number] Ambulatory [facility] [place] Repository 02/24/2018/02/25/20 [id number] Ambulatory [facility] Repository 02/09/2018/02/12/20 [id number] Ambulatory [facility] Repository 02/04/2018/02/11/20 [id number] Ambulatory [facility] Repository 02/01/2018/02/18/20 [id number] Ambulatory [facility] Repository 01/07/2018/01/08/20 [id number] Ambulatory [facility] Repository 01/07/2018/01/09/20 [id number] Ambulatory [facility] Repository 12/24/2017/12/25/19 [id number] Ambulatory [facility] Repository 12/21/2017 [id number] Ambulatory [facility] Repository 12/09/2017 [id number] Ambulatory [facility] ding:MRI Repository 12/07/2017/12/14/19 [id number] Ambulatory [facility] Repository 12/07/2017/12/08/19 [id number] Ambulatory [facility] Repository 11/25/2017/11/28/19 [id number] Ambulatory [place] [facility] [place] Repository 11/19/2017/11/21/19 [id number] Emergency [place] [address] ding:ED Repository 10/29/2017/06/14 [id number] PERICO LINCOLN Ambulatory [place] [facility] [place] Repository 10/22/2017/10/23/19 [id number] Ambulatory [place] [facility] [place] Repository 10/20/2017 [id number] Ambulatory [facility] [place] Repository 10/19/2017/10/21/19 [id number] Ambulatory [place] 18 [facility] [place] Repository 10/19/2017/10/21/19 [id number] Ambulatory [place] 18 [facility] [place] Repository 10/16/2017/10/21/19 [id number] Ambulatory [place] [facility] [place] Repository 10/14/2017/10/15/19 [id number] Ambulatory [place] 18 [facility] [place] Repository 10/13/2017/10/14/19 [id number] Ambulatory [place] [facility] Repository 10/13/2017/10/15/19 [id number] Ambulatory [address] [place] [facility] Repository 10/08/2017/10/09/19 [id number] Ambulatory [place] 18 [facility] [place] Repository 10/08/2017/10/09/19 [id number] Ambulatory [address] [place] Repository 09/29/2017/10/02/19 [id number] Ambulatory [place] 18 [facility] [place] Repository 09/24/2017/09/30/19 [id number] Ambulatory [place] 18 [facility] [place] Repository 09/24/2017/09/25/19 [id number] Ambulatory [place] [address] ding:OT Repository 09/09/2017/09/10/19 [id number] Ambulatory [place] 18 [facility] [place] Repository 09/07/2017/09/09/19 [id number] Emergency [place] 18 [facility] [place] Repository 08/24/2017/08/25/19 [id number] Ambulatory [place] 18 [facility] [place] Repository 08/24/2017/08/26/19 [id number] Ambulatory [place] 18 [facility] [place] Repository 08/18/2017/08/20/19 [id number] Ambulatory [place] 18 [facility] [place] Repository 07/28/2017/07/29/19 [id number] [place]ERSEY Ambulatory [place] [address] [facility] Repository 07/21/2017/07/22/19 [id number] Ambulatory [place] 18 [facility] [place] Repository 07/16/2017/07/17/19 [id number] Ambulatory [address] Repository 07/16/2017/07/18/19 [id number] Ambulatory [address] Repository 06/30/2017 [id number] Ambulatory [facility] Repository 06/11/2017/06/11/19 [id number] Ambulatory [address] Repository 06/09/2017/06/10/19 [id number] Ambulatory [address] Repository PAYERS PAYERS ENCOUNTER GUARANTOR PAYER SUBSCRIBER SOURCE 04/13/2018 YUNIER L Primary YUNIER L [place] [id number] Insurance:ANTHEMPolic [place]ER[place]: [place] Number: [id number] 575[address]Dwa: (567) [id number] Repository [phone] () ve Date:3619-98-38TG [address] [place] [address] [place] [id number]: 04/13/2018 Secondary NOT GIVENUNK [place] Insurance:SELF PAY [facility] Number: Effective Repository Date:2018-04-13 04/13/2018 YUNIER L Primary YUNIER L [place] [id number] Insurance:ANTHEMPolic ROLLERDOB: [place] Number: [id number] [address]Ima: ([phone] [id number] Repository [phone] () ve Date:0556-58-29LY [id number] [place] [id number]: 04/13/2018 Secondary NOT GIVENUNK [place] Insurance:SELF PAY [facility] Number: Effective Repository Date:2018-04-13 12/09/2017 YUNIER L Primary YUNIER L [place] [id number] Insurance:ANTHEMPolic ROLLERDOB: [place] Number: [id number] [address]Ays: (567 [id number] Repository [phone] () ve Date:3590-11-32[address] [place] [id number]: 12/09/2017 Secondary NOT GIVENUNK [place] Insurance:SELF PAY [facility] Number: Effective Repository Date:2017-12-01 11/19/2017 YUNIER L Primary YUNIER L [place] [id number] Insurance:ANTHEMPolic ROLLERDOB: [place] Number: [id number] [address]Wsb: (567) [id number] Repository [phone] () ve Date:4629-90-97FN [address] [place] [address]DY: 11/19/2017 Secondary NOT GIVENUNK Aliyah Insurance:SELF PAY [facility] Number: Effective Repository Date:2017-11-19 09/24/2017 YUNIER L Primary YUNIER Messer [place] [id number] Insurance:ANTHEMPolic ROLLERDOB: [facility] Number: [id number] [address]Apu: ([phone]) [id number] Repository [phone] () ve Date:9402-38-78[address] [place] [id number]: 09/24/2017 Secondary NOT GIVENUNK [place] Insurance:SELF PAY [facility] Number: Effective Repository Date:2017-09-22
== END ==
PROVIDERS: Family Provider Family Medicine; PCP Family Medicine; Referring Provider Orthopaedic Surgery; Visit Provider Orthopaedic Surgery
DX: M54.5 Low back pain (principal)
CPT/HCPCS: 72110

== ENCOUNTER → 2019-04-21 09:33 | Outpatient (CLI) | payer MEDICAID, SELFPAY ==
--- NOTE | 2019-04-21 10:12 | BD_ITS ---
STUDY: DUAL ENERGY X-RAY ABSORPTIOMETRY / DXA REASON FOR EXAM: Female, 58 years old. The patient is postmenopausal. Loss of height. TECHNIQUE: Bone Mineral Density (BMD) measurements of lumbar spine and bilateral hips were obtained. COMPARISON: None. FINDINGS: Lumbar Spine (L1-L4): g/cm2 (0.710) / T-score (-3.9) / Z-score (-3.0) Findings are suggestive of osteoporosis with a high fracture risk. Left Femur Total: g/cm2 (0.723) / T-score (-2.3) / Z-score (-1.5) Left Femoral Neck: g/cm2 (0.713) / T-score (-2.3) / Z-score (-1.3) Right Femur Total: g/cm2 (0.776) / T-score (-1.8) / Z-score (-1.1) Right Femoral Neck: g/cm2 (0.716) / T-score (-2.3) / Z-score (-1.2) BD/Dexa Bone Density Study IMPRESSION: The patient is considered osteoporotic as outlined below according to World Iker Organization (WHO) criteria with a high fracture risk. Reference Information: The T-score is the number of standard deviations above or below the standard which is normal for young adults at their peak bone mineral density. The World Health Organization (WHO) interprets the T-scores as follows: Above -1 Normal bone density Between -1 and -2.5 Osteopenia Equal to / or below -2.5 Osteoporosis As a practical clinical guideline, osteopenia may be graded as follows: Mild -1 through -1.5 Moderate -1.6 through -2.0 Severe -2.1 through -2.4 The Z-score is the number of standard deviations above or below age-matched controls. A Z-score of less than -1.5 would be considered abnormal. References: 1. NIH Osteoporosis and Related Bone Diseases http://www.osteo.org 2. International Society for Clinical Densitometry http://www.iscd.org 3. National Osteoporosis Foundation http://www.nof.org Electronically Signed: Basilio Colindres, at 14:06 EST , Service support ,
== END ==
PROVIDERS: Family Provider Family Medicine; PCP Family Medicine; Referring Provider Family Medicine; Visit Provider Family Medicine
DX: Z82.62 Family history of osteoporosis (principal)
CPT/HCPCS: 77080

== ENCOUNTER 2019-05-15 07:58 | Emergency (ER) | payer MEDICAID, SELFPAY ==
[2019-05-15 07:59] VITALS: BP 93/57; PULSE 80; RESP 18; TEMP 36.6; O2SAT 97; BMI 39.8
--- NOTE | 2019-05-15 08:46 | ED.DCSUM_ITS ---
History of Present Illness Chief Complaint: Back Informant: Patient, Family Onset: Yesterday Narrative: Patient states that yesterday she was vacuuming when she felt tightness in her right low back and buttock. She noted a pain going down her leg. This is similar to the sciatica she has had in the past. The patient states that she sat down felt a little bit better and continued to vacuum but got worse. She states today she feels very tight in the low back. No bowel or bladder dysfunction. She does not get any back injections. No fevers or rashes. No change in muscle strength or sensation. No foot drop. She took [place] but could not sleep last night. She states that she is not in pain management. Past Medical History - Allergies and Home Meds Allergies/Adverse Reactions: Allergies ciprofloxacin Allergy (Verified 05/15/19 08:01) breathing issues gabapentin Allergy (Verified 05/15/19 08:01) Angioedema morphine Allergy (Verified 05/15/19 08:01) Unknown Primary Care Physician: Hany Doyle MD [Primary Care Provider] - Smoking Status: Former smoker Review of Systems General: Denies: Chills, Fever, Sweats Eyes: Denies: Visual changes - bilaterally, Diplopia ENT: Denies: Rhinorrhea, Sore throat Cardiovascular: Denies: Chest pain, Palpitations Respiratory: Denies: Dyspnea, Cough, Dyspnea on exertion Gastrointestinal: Denies: Abdominal pain, Nausea, Vomiting, Diarrhea, Melena, Hematochezia Genitourinary: Denies: Dysuria, Hematuria, Frequency Musculoskeletal: Reports: Back pain. Denies: Myalgias, Arthralgias, Extremity Pain Skin: Denies: Rash, Wounds Neurological: Denies: Headache, Weakness, Parasthesia, Numbness Psych: Denies: Depression, Anxiety, Suicidal thoughts, Suicidal ideations Endocrine: Denies: Polyuria, Polydipsia, Heat intolerance, Cold intolerance Hematologic: Denies: Easy bruising, Easy bleeding, Lymphadenopathy Allergy: Denies: Uticaria, Swelling of the mouth, Swelling of the tongue Physical Exam Vital Signs/Narrative: Vital Signs Temp Pulse Resp BP Pulse Ox 05/15/19 07:59 97.9 F 80 18 93/57 L 97 Inital Vital Signs reviewed: Yes General: Well nourished, Well developed, Obese, No Acute Distress Head: Normocephalic, Atraumatic Eyes: Perrl, EOMI ENT: Moist mucous membranes, No rhinorrhea Neck: Supple, Nontender Cardiovascular: Regular rate, Regular rhythm, No murmurs Respiratory: No distress, CTA bilaterally, Chest nontender Abdomen: Soft, Nontender, Nondistended, Normal bowel sounds Back: - - There is tenderness in the right gluteal region and the right paraspinal lumbar musculature. Palpable spasm. Extremities: Nontender, No edema Skin: Normal color, No rash, - - No rash in the lumbar buttock region. There is no skin erythema or fluctuance to suggest abscess. Neurological: Alert, Oriented x3, Cranial nerves II-XII grossly intact, Normal Strength, Normal Sensation, - - Patient has an antalgic gait and utilizes a cane. No foot drop. +2 Achilles and patellar reflex. Psychological: Normal affect, Normal Mood Diagnostic/Tx/Re-eval - Medical Decision Making Was given a IM dose of Dilaudid and p.o. dose of Valium. I will write for her to have Valium at home. Patient was instructed on rest and gentle stretching. Follow-up with her doctor return if neurologic symptoms. ED Disposition - Plan for ED Patient: Disposition: Psychiatric Hospital or Unit Diagnosis: Right sided sciatica, Strain of lumbar paraspinal muscle Instructions: BACK PAIN w/ SCIATICA Prescriptions: Oxycodone [Oxyir] 5 mg PO Q6H PRN PRN 3 Days #12 tab PRN Reason: pain Prescription Printed Diazepam [Valium] 5 mg PO TID PRN PRN #15 tab PRN Reason: Muscle Spasm Prescription Printed Referrals: Hany Doyle MD [Primary Care Provider] - 3-5 Days
[2019-05-15] MEDS: diazePAM 5 MG Tablet PO (08:53)
[2019-05-15] MEDS: HYDROmorphone 1 MG/ML Syringe IM (08:53)
== END 2019-05-15 09:00 | disposition home or self-care (01) ==
PROVIDERS: Emergency Provider Emergency Medicine; Family Provider Family Medicine; PCP Family Medicine
DX: M54.41 Lumbago with sciatica, right side (principal); S39.012A Strain of muscle, fascia and tendon of lower back, initial encounter; M62.830 Muscle spasm of back; X58.XXXA Exposure to other specified factors, initial encounter; Y93.E3 Activity, vacuuming; Y92.9 Unspecified place or not applicable; Y99.9 Unspecified external cause status; Z79.82 Long term (current) use of aspirin; Z79.899 Other long term (current) drug therapy; Z87.891 Personal history of nicotine dependence
CPT/HCPCS: 96372; 99283

== ENCOUNTER → 2019-06-02 11:03 | Outpatient (CLI) | payer MEDICAID, SELFPAY ==
[2019-06-02 10:11] VITALS: BMI 40.9
[2019-06-02 11:55] LABS: Vitamin D,25 Hydroxy 23.9 ng/mL (29.95-100.01)
[2019-06-02 12:03] LABS: ALB/GLOB Ratio 1.2 RATIO (0.9-2.4); AST(SGOT) 15 U/L (15-37); Alanine Aminotransfer ALT/SGPT 22 U/L (13-56); Alkaline Phosphatase 92 U/L (45-117); Anion Gap 4 (5-15); BUN 11 mg/dL (7-18); BUN/Creat Ratio 11.8 RATIO (10-20); Calcium,Total 8.6 mg/dL (8.5-10.1); Chloride 104 mmol/L (98-107); Creatinine, Serum 0.93 mg/dL (0.55-1.02); EST Glomerular Filtration Rate 66 mL/min (>60); Est Glom Filt Rate - Afr Amer 80 mL/min (>60); Globulin 3.4 g/dL (2.2-4.2); Glucose 98 mg/dL (74-106); Potassium 3.5 mmol/L (3.5-5.1); Protein, Total 7.4 g/dL (6.4-8.2); Sodium Level 138 mmol/L (136-145); T4 Free Direct 1.27 ng/dL (0.76-1.46); Thyroid Stim Hormone (TSH) 2.48 uIU/mL (0.358-3.74)
== END ==
PROVIDERS: PCP Family Medicine; Referring Provider Internal Medicine Endocrinology, Diabetes & Metabolism; Visit Provider Internal Medicine Endocrinology, Diabetes & Metabolism
DX: M81.0 Age-related osteoporosis without current pathological fracture (principal); E55.9 Vitamin D deficiency, unspecified
CPT/HCPCS: 36415; 80053; 82306; 83970; 84439; 84443

== ENCOUNTER → 2019-06-07 08:41 | Outpatient (CLI) | payer MEDICAID, SELFPAY ==
[2019-06-02 11:29] VITALS: BMI 39.8
[2019-06-07] MEDS: Zoledronic Acid 5 MG 100 ML 300 MG IV (09:16)
[2019-06-07 09:23] VITALS: BP 100/67; PULSE 80; RESP 16; TEMP 36.3; O2SAT 94; BMI 40.5
[2019-06-07 09:51] VITALS: BP 95/62; PULSE 73; RESP 18
== END ==
PROVIDERS: PCP Family Medicine; Referring Provider Internal Medicine Endocrinology, Diabetes & Metabolism; Visit Provider Internal Medicine Endocrinology, Diabetes & Metabolism
DX: M81.0 Age-related osteoporosis without current pathological fracture (principal)
CPT/HCPCS: 96365; A4216; J3489

== ENCOUNTER → 2019-06-24 10:40 | Outpatient (CLI) | payer MEDICAID, SELFPAY ==
[2019-06-07 09:23] VITALS: BMI 40.5
--- NOTE | 2019-06-24 10:46 | RAD_ITS ---
STUDY: X-RAY - LUMBAR SPINE REASON FOR EXAM: Female, 58 years old. Low back and leg pain TECHNIQUE: 3 view(s) of the lumbar spine were obtained. COMPARISON: 04/13/2018 FINDINGS: Normal lumbar lordosis. There is no substantial scoliosis. There is a normal alignment of the vertebrae. There is multilevel endplate spondylosis of the lumbar vertebrae. Mild disc space narrowing. There is no demonstrated fracture. The soft tissue structures are unremarkable. RAD/Lumbar Spine 2 or 3 Views IMPRESSION: Degenerative changes of the spine, as detailed above. Electronically Signed: Danie Russ MD at 11:42 EST , Service support ,
== END ==
PROVIDERS: PCP Family Medicine; Referring Provider Anesthesiology Pain Medicine; Visit Provider Anesthesiology Pain Medicine
DX: M54.9 Dorsalgia, unspecified (principal); M79.606 Pain in leg, unspecified
CPT/HCPCS: 72100

== ENCOUNTER 2019-10-16 05:44 | Emergency (ER) | payer MEDICAID, SELFPAY ==
[2019-06-07 09:23] VITALS: BMI 40.5
[2019-10-16 05:44] VITALS: BP 148/91; PULSE 78; RESP 18; TEMP 36.7; O2SAT 100; BMI 41.2
--- NOTE | 2019-10-16 05:47 | RAD_ITS ---
STUDY: X-RAY - LEFT FOOT CLINICAL: Female, 59 years old. FALL, LEFT FOOT PAIN TECHNIQUE: 3 view(s) of the foot. COMPARISON: November 19, 2017 left foot x-ray FINDINGS: The bones are diffusely osteopenia including the talus and calcaneus. There is a Achilles spur. Similar to prior study. Normal visualized subtalar, talonavicular, calcaneocuboid, tarsal and tarsometatarsal articulations. There is demineralization of the metatarsi. Normal metatarsophalangeal joint of the great toe. Normal tibial and fibular sesamoid bones. Normal interphalangeal joint of the great toe. Normal phalanges of the great toe. Normal second through fifth metatarsophalangeal joints. Normal interphalangeal joints and phalanges of the lesser toes. The soft tissue structures are unremarkable. RAD/Foot min 3 Views IMPRESSION: Minimal degenerative change. Bony osteopenia. No visualized acute fracture. Electronically Signed: Jana Caruso MD at 6:29 EDT Tel , Service support ,
--- NOTE | 2019-10-16 05:47 | RAD_ITS ---
STUDY: X-RAY - RIGHT FOOT CLINICAL: Female, 59 years old. FALL, RIGHT FOOT PAIN TECHNIQUE: 3 view(s) of the foot. COMPARISON: None. FINDINGS: The bones are severely osteopenic. There is a Achilles spur. Normal visualized subtalar, talonavicular, calcaneocuboid, tarsal and tarsometatarsal articulations. There is demineralization of the metatarsi. Normal metatarsophalangeal joint of the great toe. Normal tibial and fibular sesamoid bones. Normal interphalangeal joint of the great toe. Normal phalanges of the great toe. Normal second through fifth metatarsophalangeal joints. Normal interphalangeal joints and phalanges of the lesser toes. The soft tissue structures are unremarkable. RAD/Foot min 3 Views IMPRESSION: Bony osteopenia no visualized acute fracture. Electronically Signed: Jana Caruso MD at 6:21 EDT Tel , Service support ,
--- NOTE | 2019-10-16 05:48 | ED.VIS.GEN ---
History of Present Illness Chief Complaint: Lower Extremity Injury Informant: Patient Onset: Today Context: Sudden Onset Timing: Continuous Current Severity: Moderate Maximum Severity: Moderate Narrative: Patient is a 59-year-old female with history of prior back pain and ankle fracture that presents to the emergency department after mechanical fall. Patient states she was walking to her bathroom without her cane. Her left leg gave out which will do from time to time. She struck the dorsum of her left foot against the door frame and then twisted her right ankle. She did not strike her head. She denies loss of consciousness. She was able to ambulate, but has had some pain in the ankle and in the left foot. Prior similar symptoms: No Recent Illness/Hospitalization: No Past Medical History - Allergies and Home Meds Allergies/Adverse Reactions: Allergies johnson Allergy (Unknown, Verified 10/16/19 05:49) Unknown house dust Allergy (Unknown, Verified 10/16/19 05:49) Unknown ciprofloxacin Allergy (Verified 10/16/19 05:49) breathing issues gabapentin Allergy (Verified 10/16/19 05:49) Angioedema morphine Allergy (Verified 10/16/19 05:49) Unknown insects Allergy (Unknown, Uncoded 10/16/19 05:49) Unknown pollen Allergy (Unknown, Uncoded 10/16/19 05:49) Unknown Primary Care Physician: Hany Doyle MD [Primary Care Provider] - Prior records reviewed: Yes Past Medical History: - - Prior back pain, hypertension Surgical History: noncontributory Smoking Status: Former smoker Review of Systems General: Denies: Chills, Fever, Sweats Eyes: Denies: Visual changes - bilaterally, Diplopia ENT: Denies: Rhinorrhea, Sore throat Cardiovascular: Denies: Chest pain, Palpitations Respiratory: Denies: Dyspnea, Cough, Dyspnea on exertion Gastrointestinal: Denies: Abdominal pain, Nausea, Vomiting, Diarrhea, Melena, Hematochezia Genitourinary: Denies: Dysuria, Hematuria, Frequency Musculoskeletal: Denies: Back pain, Extremity Pain Skin: Denies: Rash, Wounds Neurological: Denies: Headache, Weakness, Numbness Physical Exam Vital Signs/Narrative: Vital Signs Temp Pulse Resp BP Pulse Ox 10/16/19 05:44 98.0 F 78 18 148/91 H 100 Inital Vital Signs reviewed: Yes General: Well nourished, Well developed, No Acute Distress Head: Normocephalic, Atraumatic Eyes: Perrl, EOMI ENT: Moist mucous membranes, No rhinorrhea Neck: Supple, Nontender Cardiovascular: Regular rate, Regular rhythm, No murmurs Respiratory: No distress, CTA bilaterally, Chest nontender Abdomen: Soft, Nontender, Nondistended, Normal bowel sounds Back: Nontender, Normal Inspection Extremities: No edema, Tenderness - Tenderness with ecchymosis over the first second and third left toe. Normal pulses. Tenderness over the lateral malleolus of the right ankle and head of the fifth metatarsal. No proximal fibular tenderness. Arias negative. Pulses normal. Skin: Normal color, No rash Neurological: Alert, Oriented x3, Cranial nerves II-XII grossly intact, Normal Strength, Normal Sensation Psychological: Normal affect, Normal Mood Diagnostic/Tx/Re-eval Clinical Impression(s) from Imaging Studies Foot X-Ray 10/16/19 05:47 IMPRESSION: Bony osteopenia no visualized acute fracture. Electronically Signed: Jana Caruso MD at 6:21 EDT Tel , Service support , Foot X-Ray 10/16/19 05:47 IMPRESSION: Minimal degenerative change. Bony osteopenia. No visualized acute fracture. Electronically Signed: Jana Caruso MD at 6:29 EDT Tel , Service support , Ankle X-Ray 10/16/19 05:53 IMPRESSION: Normal x-ray examination of the ankle. Electronically Signed: Kameron Oden MD at 6:38 EDT , Service support , - Medical Decision Making Patient presents with mechanical fall with bilateral foot pain and right ankle pain. She is neurovascularly intact. There is no evidence of deformity. Plain films were obtained. X-rays of the right foot and ankle are unremarkable. X-rays of the left foot were read as negative, however I do suspect she may have nondisplaced fracture of the fourth and fifth toe under my review. Either way, the patient will be treated conservatively with a postoperative shoe and an Rome wrap. She will be given a short course of analgesics and outpatient podiatry follow-up. Impression 1. Mechanical fall 2. Right lateral ankle sprain 3. Closed nondisplaced fracture left fourth and fifth phalanges foot ED Disposition - Plan for ED Patient: Instructions: ED Sprain Ankle W X Ray, ED FOOT FRACTURE Prescriptions: Hydrocodone Bitart/Apap 5-325 [Cl[place] 5MG-325MG] 1 tab PO Q6H PRN PRN 3 Days #10 tab PRN Reason: Pain Prescription Printed Ondansetron [Zofran Odt] 4 mg PO Q8H PRN PRN #10 tab PRN Reason: Nausea Prescription Printed Referrals: Hany Wright DPM [STAFF PHYSICIAN] -
--- NOTE | 2019-10-16 05:53 | RAD_ITS ---
STUDY: X-RAY - RIGHT ANKLE REASON FOR EXAM: Female, 59 years old. FALL, RIGHT ANKLE PAIN TECHNIQUE: 3 view(s) of the ankle. COMPARISON: None. FINDINGS: Normal visualized distal tibia and fibula. Normal medial and lateral malleoli. Normal tibiotalar articulation and ankle mortise. Normal visualized talus and calcaneus. The visualized subtalar, talonavicular, calcaneocuboid and tarsal articulations are normal. The soft tissue structures are unremarkable. RAD/Ankle min 3 Views IMPRESSION: Normal x-ray examination of the ankle. Electronically Signed: Kamerno Oden MD at 6:38 EDT , Service support ,
[2019-10-16] MEDS: HYDROcodone Bitartrate/Apap 5/325 Tablet PO (06:04)
[2019-10-16] MEDS: Ondansetron ODT 4 MG Tablet PO (06:04)
[2019-10-16 06:58] VITALS: PULSE 80; RESP 18
== END 2019-10-16 06:59 | disposition home or self-care (01) ==
PROVIDERS: Emergency Provider Emergency Medicine; PCP Family Medicine
DX: S92.505A Nondisplaced unspecified fracture of left lesser toe(s), initial encounter for closed fracture (principal); S93.401A Sprain of unspecified ligament of right ankle, initial encounter; M79.672 Pain in left foot; M79.671 Pain in right foot; W01.10XA Fall on same level from slipping, tripping and stumbling with subsequent striking against unspecified object, initial encounter; Y93.01 Activity, walking, marching and hiking; Y92.9 Unspecified place or not applicable; Y99.9 Unspecified external cause status; I10 Essential (primary) hypertension; M54.9 Dorsalgia, unspecified; Z79.899 Other long term (current) drug therapy; Z87.891 Personal history of nicotine dependence
CPT/HCPCS: 73610; 73630; 99284

== ENCOUNTER 2019-11-03 11:39 | Emergency (ER) | payer MEDICAID, SELFPAY ==
[2019-11-03 11:41] VITALS: BP 140/97; PULSE 74; RESP 18; TEMP 36.2; O2SAT 95; BMI 39.1
--- NOTE | 2019-11-03 12:05 | RAD_ITS ---
STUDY: X-RAY - RIGHT HAND, ATTENTION INDEX FINGER REASON FOR EXAM: Female, 59 years old. PAIN AT DISTAL END OF 2ND DIGIT, WHOLE 2ND DIGIT SWOLLEN TECHNIQUE: 3 view(s) of the finger were obtained. COMPARISON: None. FINDINGS: Normal metacarpal head. Normal metacarpophalangeal joint. Normal proximal phalanx. Normal middle phalanx. Normal distal phalanx. Normal proximal interphalangeal joint. Normal distal interphalangeal joint. Diffuse soft tissue swelling. RAD/Finger(s) Min 2 Views IMPRESSION: Diffuse soft tissue swelling. Electronically Signed: Basilio Colindres, at 12:30 EDT , Service support ,
[2019-11-03 12:06] VITALS: BP 140/97; PULSE 74; RESP 18; TEMP 36.2; O2SAT 95
--- NOTE | 2019-11-03 12:31 | ED.DCSUM_ITS ---
- ER Visit Summary Date of Service: 11/03/19 Chief Complaint: [Pain and swelling to right index finger] History of Present Illness: The patient is a 59 F [presents to the emergency department pain and swelling to the right index finger that started about 4 days ago. Patient denies any recent injury. Patient states that she did fall couple weeks ago and fractured her ankle. She is not sure if she hurt finger at that time although her pain only started 4 days ago. Patient has history of COPD as well as hypothyroidism and GERD. Patient states that she has had similar problems in the past with her toes and she developed infection. She denies any fevers. Patient states that she did have a red line across her finger earlier today but now it is gone.] Physical Examination: [HEENT-PERRLA, EOMI. Cranial nerves II through XII grossly intact. TMs clear. Mucous membranes moist. No adenopathy. Cardiovascular-regular rate and rhythm without murmur or ectopy Lungs-clear to auscultation, chest wall stable without crepitus or subcu emphysema Abdomen-normoactive bowel sounds, soft, nontender, no rebound or rigidity, no peritoneal signs. Extremities-intact ?4, normal range of motion, normal pulses, atraumatic. Right index finger-there is some mild soft tissue swelling over the area of the DIP with tenderness palpation over the DIP joint. There is some faint erythema noted. No lymphangitic streaking noted. She is neurovascular intact.] There is no evidence of paronychia. Test Results: [Rays of the right index finger obtained showed no fractures.] Emergency Department Course and Treatment: [He was started on Keflex] Treatment Plan: [We will be treated with Keflex. Advised to follow-up with primary care physician in 3 to 5 days for wound check. Patient advised to retur n if increasing pain, redness, swelling, purulent drainage, or condition should worsen anyway.] Disposition: Discharged home in stable condition [] Impression: [Cellulitis right index finger] This note was generated with [employer] software. It may contain incorrect words, spelling, and punctuation that were not noted in review of the chart prio r to signing ED Disposition - Plan for ED Patient: Referrals: Hany Doyle MD [Primary Care Provider] -
--- NOTE | 2019-11-03 12:33 | ED.DEP ---
ED Disposition - Plan for ED Patient: Instructions: Cellulitis Prescriptions: Cephalexin [Keflex] 500 mg PO Q6 #40 cap Transmission Status: Pending to [facility] Referrals: Hany Doyle MD [Primary Care Provider] - 3-5 Days
[2019-11-03] MEDS: Cephalexin 250 MG Capsule 500 MG PO (13:32)
== END 2019-11-03 13:38 | disposition home or self-care (01) ==
LOC: ED 12:05
PROVIDERS: Emergency Provider Emergency Medicine; PCP Family Medicine
DX: L03.011 Cellulitis of right finger (principal); M79.89 Other specified soft tissue disorders; J44.9 Chronic obstructive pulmonary disease, unspecified; E03.9 Hypothyroidism, unspecified; K21.9 Gastro-esophageal reflux disease without esophagitis; Z79.82 Long term (current) use of aspirin; Z79.899 Other long term (current) drug therapy
CPT/HCPCS: 73140; 99283

== ENCOUNTER 2019-11-09 17:51 | Emergency (ER) | payer MEDICAID, SELFPAY ==
[2019-11-09 17:53] VITALS: BP 120/69; PULSE 76; RESP 18; TEMP 36.3; O2SAT 95; BMI 41.1
--- NOTE | 2019-11-09 18:06 | ED.VIS.GEN ---
History of Present Illness Chief Complaint: Cellulitis Detail of Chief Complaint: Right index finger pain Informant: Patient Onset: Days, Weeks Context: Sudden Onset Timing: Continuous Quality: Pain Location: DIP joint right index finger Current Severity: Mild Maximum Severity: Severe Worsened by: Movement especially lateral Relieved by: Nothing Associated Symptoms: Swelling Narrative: Patient is a 59-year-old [id number] woman who presents with pain to the right index finger. She was seen last week and treated for cellulitis. She prescribed cephalexin. She denies fever, chills night sweats. She does have a trauma. She denies paresthesia, anesthesia or motor weakness. She denies redness. She denies drainage. She denies biting her nails. Prior similar symptoms: Yes Recent Illness/Hospitalization: Yes - Past Medical History (1) History of hypothyroidism Status: Acute (2) History of peripheral arterial disease Status: Acute (3) History of COPD Status: Chronic (4) History of hypertension Status: Acute Past Medical History - Allergies and Home Meds Allergies/Adverse Reactions: Allergies johnson Allergy (Unknown, Verified 11/09/19 17:58) Unknown house dust Allergy (Unknown, Verified 11/09/19 17:58) Unknown ciprofloxacin Allergy (Verified 11/09/19 17:58) breathing issues gabapentin Allergy (Verified 11/09/19 17:58) Angioedema morphine Allergy (Verified 11/09/19 17:58) Unknown insects Allergy (Unknown, Uncoded 11/09/19 17:58) Unknown pollen Allergy (Unknown, Uncoded 11/09/19 17:58) Unknown Primary Care Physician: Hany Doyle MD [Primary Care Provider] - Prior records reviewed: Yes Surgical History: noncontributory, - - EGD, cholecystectomy and tonsillectomy Lives: With Family Smoking Status: Former smoker Alcohol: None Drugs: None Review of Systems General: Denies: Chills, Fever, Malaise, Subjective, Sweats, Weight loss, - Musculoskeletal: Reports: Swelling, Extremity Pain. Denies: Myalgias, Arthralgias, Neck pain, Back pain Skin: Denies: Rash, Abscess, Abrasions, Wounds Neurological: Denies: Weakness, Parasthesia, Numbness Hematologic: Denies: Easy bruising, Easy bleeding Allergy: Denies: Uticaria, Swelling of the mouth, Swelling of the tongue Physical Exam Vital Signs/Narrative: Vital Signs Temp Pulse Resp BP Pulse Ox 11/09/19 17:53 97.3 F L 76 18 120/69 95 Inital Vital Signs reviewed: Yes General: Well nourished, Well developed, Obese, No Acute Distress Eyes: Perrl, EOMI. Negative for: Pale conjunctiva, Scleral icterus ENT: Moist mucous membranes, No rhinorrhea Neck: Supple, Nontender Cardiovascular: Regular rate, Regular rhythm, No murmurs, Normal S1, Normal S2 Respiratory: No distress, CTA bilaterally, Chest nontender Extremities: - - Tenderness of the DIP joint right index finger. There is no erythema, warmth, fluctuance or lymphangitis. There is no epitrochlear lymphadenopathy. There is no fluid noted in the DIP joint nor is there any bogginess. There is no subungual hematoma noted. There is swelling of the distal right index finger.. Negative for: Nontender Skin: Normal color, No rash, No Trauma. Negative for: Cyanosis, Diaphoresis, Jaundice Neurological: Alert, Oriented x3, Cranial nerves II-XII grossly intact, Normal Strength, Normal Sensation Psychological: Normal affect Diagnostic/Tx/Re-eval Chest X-Ray - ED: Read by ED Physician, - - View x-ray of the index finger was obtained interpreted by me as negative. The soft tissue swelling has essentially resolved. 11/09/19 18:18 Finger(s) Min 2 Views [RAD] Stat - Medical Decision Making Since there is a history of trauma with swelling and pain of the joint x-ray was obtained to assess for fracture. Patient had pain with stressing of the collateral ligaments. There was no laxity compared to the asymptomatic side. There is no evidence of infection. ED Disposition - Plan for ED Patient: Disposition: Home or Assisted Living Diagnosis: Strain of right index finger Instructions: ED Sprain Finger Referrals: Hany Doyle MD [Primary Care Provider] - 3-5 Days if not improving Additional Instructions: If there is redness, significant swelling, drainage or red streak up the finger to the wrist return otherwise follow-up with your primary care physician.
--- NOTE | 2019-11-09 18:18 | RAD_ITS ---
STUDY: X-RAY - RIGHT HAND, ATTENTION INDEX FINGER REASON FOR EXAM: Female, 59 years old. 2nd digit swelling and pain. TECHNIQUE: 3 view(s) of the finger were obtained. COMPARISON: None. FINDINGS: Normal metacarpal head. Normal metacarpophalangeal joint. Normal proximal phalanx. Normal middle phalanx. Normal distal phalanx. Normal proximal interphalangeal joint. Normal distal interphalangeal joint. There is diffuse soft tissue swelling of the index finger. RAD/Finger(s) Min 2 Views IMPRESSION: Diffuse soft tissue swelling of the index finger without evidence for fracture or acute osteomyelitis. Electronically Signed: Hany Joshi MD at 18:38 EDT , Service support ,
== END 2019-11-09 19:02 | disposition home or self-care (01) ==
LOC: ED 18:43
PROVIDERS: Emergency Provider Emergency Medicine; PCP Family Medicine
DX: S63.610A Unspecified sprain of right index finger, initial encounter (principal); S56.111A Strain of flexor muscle, fascia and tendon of right index finger at forearm level, initial encounter; E03.9 Hypothyroidism, unspecified; J44.9 Chronic obstructive pulmonary disease, unspecified; I10 Essential (primary) hypertension; I73.9 Peripheral vascular disease, unspecified; E66.9 Obesity, unspecified; Z79.82 Long term (current) use of aspirin; Z79.899 Other long term (current) drug therapy; Z87.891 Personal history of nicotine dependence; Z90.49 Acquired absence of other specified parts of digestive tract
CPT/HCPCS: 73140; 99282

== ENCOUNTER → 2019-11-21 16:39 | Outpatient (CLI) | payer MEDICAID, SELFPAY ==
[2019-11-09 17:53] VITALS: BMI 41.1
--- NOTE | 2019-11-21 17:30 | MRI_ITS ---
STUDY: MRI LUMBAR SPINE WITHOUT CONTRAST REASON FOR EXAM: Female, 59 years old. lt leg weakness, back pain x 2 1/2 years TECHNIQUE: Standardized fat and water weighted pulse sequences were obtained in the sagittal and axial planes. COMPARISON: Radiographs 06/24/2019 FINDINGS: T12-L1: Normal endplates. Normal disc height, hydration and morphology. Normal bilateral facet joints. Normal central canal and bilateral lateral recesses. Normal bilateral intervertebral neural foramina. Normal lumbar lordosis. There is no substantial scoliosis. Normal conus medullaris that terminates at the L1 level. L1-2: Normal endplates. Normal disc height, hydration and morphology. Normal bilateral facet joints. Normal central canal and bilateral lateral recesses. Normal bilateral intervertebral neural foramina. L2-3: Bulging annulus and left paracentral annular fissure with bilateral facet hypertrophy. Mild bilateral foraminal stenoses. L3-4: Bulging annulus and bilateral facet hypertrophy without compressive sequelae. L4-5: Bulging annulus and bilateral facet hypertrophy with mild left lateral recess stenosis with moderate to severe left foraminal stenosis. L5-S1: Bulging annulus and right facet hypertrophy with mild bilateral foraminal stenoses. Normal visualized sacral ala. Normal visualized paraspinous soft tissue structures. MRI/Spine Lumbar (Routine) IMPRESSION: Multilevel degenerative disease as described. Moderate to severe left foraminal stenosis at the L4-5 level. Electronically Signed: Ryland Whittington MD at 20:10 EDT Tel , Service support ,
== END ==
PROVIDERS: PCP Family Medicine; Referring Provider Anesthesiology Pain Medicine; Visit Provider Anesthesiology Pain Medicine
DX: M48.061 Spinal stenosis, lumbar region without neurogenic claudication (principal)
CPT/HCPCS: 72148

== ENCOUNTER 2020-02-24 11:07 | Emergency (ER) | payer MEDICARE, MEDICAID, SELFPAY ==
[2020-02-24 11:08] VITALS: BP 139/72; PULSE 73; RESP 18; TEMP 36.2; O2SAT 91; BMI 43.0
--- NOTE | 2020-02-24 11:33 | ED.DCSUM_ITS ---
History of Present Illness Informant: Patient, Family Onset: Month(s) Narrative: 59-year-old female with osteoarthritis presents with acute on chronic low back pain. She states she has had lumbar pain with right-sided sciatica for years and follows with pain management who prescribes Lyrica and Flexeril. Over the last 3 days she has had worsening low back pain. No new injury or inciting event. Ambulates with a walker. denies weakness, numbness, tingling, saddle anesthesia, or bladder/bowel incontinence. She does have some functional urinary incontinence due to difficulty ambulating, but no overflow incontinence. She had Vicodin from a previous surgery which she took the last few days. She had an MRI 1 month ago and was referred to neurosurgery in [place] and has lumbar surgery scheduled at the end of February. Denies fevers, chills, nausea, vomiting, or urinary symptoms. <Elizabeth Méndez - Last Filed: 02/24/20 12:05> <Nicolas Tate - Last Filed: 02/24/20 12:33> Chief Complaint: Back Past Medical History Past Medical History: - - osteoarthritis, lumbar radiculopathy Surgical History: noncontributory, - - EGD, cholecystectomy and tonsillectomy Smoking Status: Former smoker <Elizabeth Méndez - Last Filed: 02/24/20 12:05> <Nicolas Tate - Last Filed: 02/24/20 12:33> - Allergies and Home Meds Allergies/Adverse Reactions: Allergies johnson Allergy (Unknown, Verified 11/09/19 17:58) Unknown house dust Allergy (Unknown, Verified 11/09/19 17:58) Unknown ciprofloxacin Allergy (Verified 11/09/19 17:58) breathing issues gabapentin Allergy (Verified 11/09/19 17:58) Angioedema morphine Allergy (Verified 11/09/19 17:58) Unknown insects Allergy (Unknown, Uncoded 11/09/19 17:58) Unknown pollen Allergy (Unknown, Uncoded 11/09/19 17:58) Unknown Primary Care Physician: Jonnie Muniz MD [STAFF PHYSICIAN] - Review of Systems General: Denies: Chills, Fever, Sweats Eyes: Denies: Visual changes - bilaterally, Diplopia ENT: Denies: Rhinorrhea, Sore throat Cardiovascular: Denies: Chest pain, Palpitations Respiratory: Denies: Dyspnea, Cough, Dyspnea on exertion Gastrointestinal: Denies: Abdominal pain, Nausea, Vomiting, Diarrhea, Melena, Hematochezia Genitourinary: Denies: Dysuria, Hematuria, Frequency Musculoskeletal: Reports: Back pain. Denies: Myalgias, Extremity Pain Skin: Denies: Rash, Wounds Neurological: Denies: Headache, Weakness, Numbness <Elizabeth Méndez - Last Filed: 02/24/20 12:05> Physical Exam Vital Signs/Narrative: Vital Signs Temp Pulse Resp BP Pulse Ox 02/24/20 11:08 97.1 F L 73 18 139/72 H 91 Inital Vital Signs reviewed: Yes General: Well nourished, Well developed, No Acute Distress Head: Normocephalic, Atraumatic Eyes: Perrl, EOMI ENT: Moist mucous membranes, No rhinorrhea Neck: Supple, Nontender Cardiovascular: Regular rate, Regular rhythm, No murmurs Respiratory: No distress, CTA bilaterally, Chest nontender Abdomen: Soft, Nontender, Nondistended, Normal bowel sounds Back: Normal Inspection, - - Midline and paraspinal lumbar tenderness, no step- off or crepitus Extremities: Nontender, No edema Skin: Normal color, No rash Neurological: Alert, Oriented x3, Cranial nerves II-XII grossly intact, Normal Strength, Normal Sensation, - - 5/5 strength in lower extremities, sensation intact Psychological: Normal affect, Normal Mood <Elizabeth Méndez - Last Filed: 02/24/20 12:05> Vital Signs/Narrative: Vital Signs Temp Pulse Resp BP Pulse Ox 02/24/20 11:08 97.1 F L 73 18 139/72 H 91 <Nicolas Tate - Last Filed: 02/24/20 12:33> Diagnostic/Tx/Re-eval - Medical Decision Making Patient presented with acute on tonic low back pain. No new injury or trauma. She appears well nontoxic. Vital signs within normal limits. She has a normal neurological exam. She does have some midline lumbar spinal tenderness which she states is chronic and with an MRI done 1.5 months ago and no red flag symptoms there is no need for repeat imaging today. She was given Toradol and Vicodin. I spoke with her pain management doctor, Dr. Muniz, who is comfortable giving her a short prescription of Vicodin from the ED and she should call his office on Thursday. Patient was agreeable with this plan and discharged home in stable condition. <Elizabeth Méndez - Last Filed: 02/24/20 12:05> - Medical Decision Making I supervised the PA and have performed my own pertinent history and physical. Results and treatment plan were discussed. HPI: Patient has chronic back pain that she reports worsened 3 days ago. She denies any trauma. No fall, MVA, or change in activity. She denies any numbness in her groin. No problems with her bowels or her bladder. PE: Vitals: Stable. Afebrile. General: A&O x 3. NAD. Cardiovascular exam: Regular rate and rhythm, no murmur, rub or gallop. Respiratory exam: Clear to auscultation bilaterally. No wheezes or stridor. Abdominal exam: Soft, nontender, nondistended, normal bowel sounds. No peritoneal signs. Back: Diffuse moderate tenderness to palpation over the lumbar spine and the paraspinous musculature in the lumbar region. No point tenderness. Negative straight leg bilaterally. 5/5 DF, PF, EHL bilaterally. Decreased sensation to light touch in an S1 distribution on the right only. Extremity: No clubbing, cyanosis, or edema. Emergency Department course: An [facility] report was obtained which shows she has not had any prescriptions for opiate-based medications since October. She was theresa ated Toradol and [place] here. Treatment Plan: She was discussed with pain management. She will be discharged with prescription for 12 [place]. Instructed to follow-up with pain management for further evaluation and treatment of her pain. The signs and symptoms of cauda equina syndrome were discussed. She is instructed to return for these. This note was generated with [employer] dictation software. It may contain incorrect words, spelling, and punctuation that were not noted in review of the chart prior to signing. <Nicolas Tate - Last Filed: 02/24/20 12:33> ED Disposition <Elizabeth Méndez - Last Filed: 02/24/20 12:05> <Nicolas Tate - Last Filed: 02/24/20 12:33> - Plan for ED Patient: Instructions: ED Back Pain Acute or Chronic Prescriptions: Hydrocodone/Acetaminophen [[place] 5-325 Tablet] 1 ea PO Q6H PRN PRN 3 Days #12 tab PRN Reason: Pain/Inflammation Transmission Status: Received by [facility] Referrals: Jonnie Muniz MD [STAFF PHYSICIAN] -
[2020-02-24] MEDS: Ketorolac 30 MG/ML Syringe IM (11:49)
[2020-02-24] MEDS: HYDROcodone Bitartrate/Apap 5/325 Tablet PO (11:49)
== END 2020-02-24 12:40 | disposition home or self-care (01) ==
LOC: ED 12:06
PROVIDERS: Emergency Provider Physician Assistant; PCP Family Medicine
DX: M54.5 Low back pain (principal); M54.16 Radiculopathy, lumbar region; G89.29 Other chronic pain; M19.90 Unspecified osteoarthritis, unspecified site; R39.81 Functional urinary incontinence; R26.2 Difficulty in walking, not elsewhere classified; Z79.82 Long term (current) use of aspirin; Z79.899 Other long term (current) drug therapy; Z87.891 Personal history of nicotine dependence
CPT/HCPCS: 96372; 99283

== ENCOUNTER → 2020-03-06 17:17 | Outpatient (CLI) | payer MEDICARE, MEDICAID, SELFPAY ==
[2020-02-24 11:08] VITALS: BMI 43.0
== END ==
PROVIDERS: PCP Family Medicine; Referring Provider Anesthesiology Pain Medicine; Visit Provider Anesthesiology Pain Medicine
DX: Z01.818 Encounter for other preprocedural examination (principal)
CPT/HCPCS: 87635; C9803; U0003

== ENCOUNTER 2020-05-22 15:45 | Emergency (ER) | payer MEDICARE, MEDICAID, SELFPAY ==
[2020-05-22 15:46] VITALS: BP 116/62; PULSE 71; RESP 18; TEMP 35.7; O2SAT 94; BMI 42.7
--- NOTE | 2020-05-22 16:18 | VDLE_ITS ---
Reason For Study: swelling RIGHT GSV is normal. CFV is compressible, spontaneous, phasic, competent and demonstrates normal augmentation. FV is compressible, spontaneous, phasic, competent and demonstrates normal augmentation. POP V is compressible, spontaneous, phasic, competent and demonstrates normal augmentation. T/P Trunk is compressible. PTV is compressible. RT PerV is compressible. Procedure This is a venous duplex using B-mode, color flow and spectral Doppler. Exam performed portable in ED. The exam was abbreviated due to the COVID 19 protocol. The exam was diagnostic. A preliminary report was called and/or faxed to Dr. Shafer. Interpretation Summary Deep veins of the right lower extremity are patent and compressible segmentally. There is no evidence of right lower extremity deep vein thrombosis. Valvular competence appears intact within the proximal deep venous system on the right . The right great saphenous vein appears patent and compressible segmentally. Ordering Physician: Michael Shafer Performed By: Johnathan Lucio RVT
--- NOTE | 2020-05-22 16:22 | ED.DCSUM_ITS ---
- ER Visit Summary Date of Service: 05/22/20 Chief Complaint: Right leg pain and swelling History of Present Illness: The patient is a 59 F who presents with right leg pain and swelling that began today. Patient states that she has been going through physical therapy and when she went to therapy today she said something to the therapist about her leg being more swollen. Patient states she felt like she had a charley horse in the back of her right leg. Patient states that the therapist was unable to palpate a pedal pulse. Patient was then referred to the emergency department. Patient denies any paresthesias or weakness. Patient describes her pain as dull and aching. Patient states nothing makes it better or worse. Physical Examination: Vital signs are stable. Patient is afebrile. Patient is in no acute distress. Musculoskeletal exam reveals tenderness over the right calf. There is no tenderness over the right thigh. There is mild edema. Pedal pulses are equal bilaterally. Sensation was intact to light touch in all digits. Capillary refill was less than 2 seconds in all digits. There is good range of motion of the right lower extremity. Test Results: Venous duplex of the right lower extremity was obtained. There is no evidence of DVT. Emergency Department Course and Treatment: Patient was advised of the findings. Patient was instructed to keep her leg elevated. Patient was instructed to follow-up with her primary care physician in 5 to 7 days. Patient understood and was agreeable with the plan. All questions were answered. Disposition: Discharge home Impression: Right leg strain This note was generated with [employer] dictation software. It may contain incorrect words, spelling, and punctuation that were not noted in review of the chart prior to signing ED Disposition - Plan for ED Patient: Disposition: Home or Assisted Living Diagnosis: Muscle strain of right lower leg Instructions: ED Muscle Strain, Extremity Referrals: Hany Doyle MD [Primary Care Provider] - 5-7 Days
--- NOTE | 2020-05-22 16:58 | ED.RN ---
DISCHARGE INSTRUCTIONS GIVEN TO AND REVIEWED WITH PATIENT, PATIENT DENIES QUESTIONS OR CONCERNS AND VOICES UNDERSTANDING OF DISCHARGE INSTRUCTIONS. PT TO PRIVATE VEHICLE VIA WHEELCHAIR.
== END 2020-05-22 16:58 | disposition home or self-care (01) ==
LOC: ED 16:57
PROVIDERS: Emergency Provider Emergency Medicine; PCP Family Medicine
DX: S86.911A Strain of unspecified muscle(s) and tendon(s) at lower leg level, right leg, initial encounter (principal); M79.89 Other specified soft tissue disorders; X58.XXXA Exposure to other specified factors, initial encounter; Y93.9 Activity, unspecified; Y92.9 Unspecified place or not applicable; Y99.9 Unspecified external cause status; J44.9 Chronic obstructive pulmonary disease, unspecified; M54.9 Dorsalgia, unspecified; G89.29 Other chronic pain; Z72.0 Tobacco use; Z79.82 Long term (current) use of aspirin; Z79.899 Other long term (current) drug therapy
CPT/HCPCS: 93971; 99282

== ENCOUNTER → 2020-06-01 08:39 | Outpatient (CLI) | payer MEDICARE, MEDICAID, SELFPAY ==
[2020-06-01 08:05] VITALS: BMI 43.7
[2020-06-01 12:38] LABS: Vitamin D,25 Hydroxy 38.2 ng/mL
== END ==
PROVIDERS: PCP Family Medicine; Referring Provider Internal Medicine Endocrinology, Diabetes & Metabolism; Visit Provider Internal Medicine Endocrinology, Diabetes & Metabolism
DX: M81.0 Age-related osteoporosis without current pathological fracture (principal); E55.9 Vitamin D deficiency, unspecified
CPT/HCPCS: 36415; 82306; 82310

== ENCOUNTER → 2020-06-15 09:50 | Outpatient (CLI) | payer MEDICARE, MEDICAID, SELFPAY ==
[2020-06-01 08:05] VITALS: BMI 43.7
[2020-06-15 09:55] VITALS: BP 129/67; PULSE 71; RESP 18; TEMP 37.1; O2SAT 94; BMI 42.7
[2020-06-15] MEDS: 0.9% NaCl Peripheral Flush Adult/Peds IV (10:30)
[2020-06-15] MEDS: Zoledronic Acid 5 MG 100 ML 300 MG IV (10:30)
[2020-06-15 11:00] VITALS: BP 129/66; PULSE 77; RESP 18
== END ==
PROVIDERS: PCP Family Medicine; Referring Provider Internal Medicine Endocrinology, Diabetes & Metabolism; Visit Provider Internal Medicine Endocrinology, Diabetes & Metabolism
DX: M81.0 Age-related osteoporosis without current pathological fracture (principal)
CPT/HCPCS: 96365; A4216; J3489

== ENCOUNTER → 2020-07-04 16:20 | Outpatient (CLI) | payer MEDICARE, MEDICAID, SELFPAY ==
[2020-06-15 09:55] VITALS: BMI 42.7
[2020-07-04 17:57] LABS: Amphetamine Urine VISTA NEGATIVE (<1000 ng/mL); Barbiturate Urine VISTA NEGATIVE (< 200 ng/mL); Benzodiazepine Urine VISTA NEGATIVE (< 200 ng/mL); Cocaine Urine VISTA NEGATIVE (< 300 ng/mL); Ecstacy Urine VISTA NEGATIVE (< 500 ng/mL); Methadone Urine VISTA NEGATIVE (< 300 ng/mL); PCP Urine VISTA NEGATIVE (< 25 ng/mL); THC Urine VISTA NEGATIVE (< 50 ng/mL); Vista UDS pH Range 7
== END ==
PROVIDERS: PCP Family Medicine; Referring Provider Anesthesiology Pain Medicine; Visit Provider Anesthesiology Pain Medicine
DX: F11.20 Opioid dependence, uncomplicated (principal)
CPT/HCPCS: 80307

== ENCOUNTER → 2020-11-13 06:21 | Outpatient (CLI) | payer MEDICARE, MEDICAID, SELFPAY ==
[2020-09-12 08:29] VITALS: BMI 43.5
--- NOTE | 2020-11-13 06:43 | MRI_ITS ---
STUDY: MRI LUMBAR SPINE WITH AND WITHOUT CONTRAST REASON FOR EXAM: Female, 60 years old. L HIP PAIN TECHNIQUE: Standardized fat and water weighted pulse sequences were obtained in the sagittal and axial planes. IV 20cc Dotarem was administered for the contrast portion of the examination. COMPARISON: MRI lumbar spine without contrast 11/21/2019. FINDINGS: T11-T12: (Sagittal only). Normal endplates. Normal disc height, hydration and morphology. Normal central canal and bilateral intervertebral neural foramina. T12-L1: (Sagittal only). Normal endplates. Normal disc height, hydration and morphology. Right posterior marginal spurs causing right ventral extradural defect. Normal central canal and bilateral intervertebral neural foramina. Normal lumbar lordosis. There is no substantial scoliosis. Normal conus medullaris that terminates at the T12-L1 disc level. L1-2: Normal endplates. Normal disc height, hydration and morphology. Normal bilateral facet joints. Normal central canal and bilateral lateral recesses. Normal bilateral intervertebral neural foramina. L2-3: Normal endplates. Normal disc height, hydration and morphology. Normal bilateral facet joints. Normal central canal and bilateral lateral recesses. Normal bilateral intervertebral neural foramina. L3-4: Minimal MODIC type II degenerative vertebral marrow fatty changes underneath the left side of the vertebral endplates. Mild left-sided disc space height narrowing. No ventral extra dural defect. Normal central canal and bilateral lateral recesses. Mild asymmetric degenerative facet arthropathy. Normal bilateral intervertebral neural foramina. L4-5: Mild disc space height narrowing. Normal central canal and bilateral lateral recesses. Mild asymmetric degenerative facet arthropathy. Moderate stenosis of the left intervertebral neural foramen. Normal right intervertebral neural foramen. Contrast enhancement behind the left hemilaminotomy site and around the facet joints, left more than right. L5-S1: Normal endplates. Normal disc height, hydration and morphology. Mild asymmetric degenerative facet arthropathy. Normal central canal and bilateral lateral recesses. Normal bilateral intervertebral neural foramina. Normal visualized sacral ala. Normal visualized paraspinous soft tissue structures. No abnormal contrast enhancement intradurally and extradurally. MRI/Spine Lumbar W/WO Contrast IMPRESSION: 1. No MRI evidence of lumbar extruded disc fragment. 2. Moderate stenosis of the left L4-5 intervertebral neural foramen and postoperative contrast enhancement behind the left L4 hemilaminotomy site and around the bilateral L4-L5 facet joints, left more than right. This level is the only new change since 11/21/2019. Electronically Signed: Jarek Lux MD at 14:16 EDT , Service support ,
== END ==
PROVIDERS: PCP Family Medicine; Referring Provider Orthopaedic Surgery Orthopaedic Surgery of the Spine; Visit Provider Orthopaedic Surgery Orthopaedic Surgery of the Spine
DX: M47.27 Other spondylosis with radiculopathy, lumbosacral region (principal); M43.17 Spondylolisthesis, lumbosacral region; Z98.890 Other specified postprocedural states
CPT/HCPCS: 72158; A9575

== ENCOUNTER → 2021-01-24 12:05 | Outpatient (CLI) | payer MEDICARE, MEDICAID, SELFPAY ==
[2021-01-24 13:20] LABS: Amphetamine Urine VISTA NEGATIVE (<1000 ng/mL); Barbiturate Urine VISTA NEGATIVE (< 200 ng/mL); Benzodiazepine Urine VISTA NEGATIVE (< 200 ng/mL); Cocaine Urine VISTA NEGATIVE (< 300 ng/mL); Ecstacy Urine VISTA NEGATIVE (< 500 ng/mL); Methadone Urine VISTA NEGATIVE (< 300 ng/mL); PCP Urine VISTA NEGATIVE (< 25 ng/mL); THC Urine VISTA NEGATIVE (< 50 ng/mL); Vista UDS pH Range 5
== END ==
PROVIDERS: PCP Family Medicine; Visit Provider Anesthesiology Pain Medicine
DX: F11.20 Opioid dependence, uncomplicated (principal)
CPT/HCPCS: 80307

== ENCOUNTER 2021-05-01 13:30 | Outpatient (RCR) | payer MEDICARE, SELFPAY ==
--- NOTE | 2021-04-23 14:23 | HP.OTEVAL_ITS ---
Patient's Visit Information YUNIER ZAMORA is a 60 year old F, referred to Occupational Therapy by PALMIRA MONTELONGO, with a diagnosis of CMC arthroplasty. Date of Evaluation: 04/23/21 Occupational Therapist: Cherry Person, RIKR/Ayde, CHT - Subjective This 60 year old female was seen for OT eval- pt states. pt states she had cmc arthroplasty by Dr. Garduno in 2018. pt states she did not recover well from this sx and had concerns and did seek a 2nd opinion. pt was referred to Dr. Grubbs and had a revision of right Carpometacarpal arthroplasty with DeQuefaizan's Tenosynovectomy thumb adductor release with partial trapezoid excision on 04/05/21. pt arrives to OT 2 weeks and 4 days s/p from [facility] above sx. pt limited with all use of right hand with ADls and IADls. pt would like to return to her PLOF and use right hand with no residual pain. - Pain right hand 5 Pain Intensity Range: 5, 7 - ROM Wrist: right 45 left 15 CMC: will test at week 4 left 15* MP: right 20 left 30 IP: right 15 left 30 - Strength Strength Comments: will test later day - Sensation Sensation Comments: denies - Quick DASH-Disab of Arm,Shoulder& Hand Quick DASH Score: 77.2725 - Goals Goal:100% adherence to protocol: Yes Comment: Dr. 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 Grubbs revision of right Carpometacarpal arthroplasty with DeTamiko's Tenosynovectomy thumb adductor release with partial trapezoid excision on 04/05/21. Due to healing structures pt demo a need for skilled OT services 1-2x week for 8 weeks to rehab pt back to a PLOF with ADls and IADls. Today therapist ed. pt on scar mtg. and IP flexion as well as incision care. pt also advised to ice or do contrast of heat and ice to assist with decreasing pain. Rehabilitation Potential: Excellent - Anticipated Interventions A/AAROM/PROM, Strengthening, Scar Care, Triggerpoint Release, Desensitization, Modalities, Orthoses, Joint Protection/Energy Conservation, Ergonomic Education, Education re assistive Equipment, Education re Diagnosis - Visit Plan Frequency: 1-2x /Week Duration: 2 Months General Plan: Dr. Grubbs CMC arthroplasty. Week 2: exercise- AROM performed for digits and thumb IP joint only- initiate scar mtg. Week 4: Begin AROM exercises for wrist thumb CMC- joint- cont. scar mtg/edema control (modalities as indicated for pain and edema. Week 6: splint D/C and issue comfort cool fitted splint if needed- discontinue splint by 8 weeks post-operative except may wear during heavy activates pm. Exercise: start gentle strengthening(thera- putty), progress as tolerated. Progress to wrist strengthening and heavier prehension tasks at 8 weeks post-operative. Avoid forceful extension of thumb. Expectations: Most patients are treated with a Home Program and checked after each MD visit for program progression 2x weekly for 4-6 weeks for symptomatic patients or those returning to heavier work demands. 2 months to resume normal activities, 3 months for strenuous. 3-6 months to reach optimum results. slight decrease in pinch and beverage manager strength. generally, gain 70% of strength and motion of unoperated hand. TEXT: Thank you for the opportunity to evaluate your patient. For Medicare and Medicare HMO plans, please review the plan of care and approve it. It will need to be FAXED BACK to us at [phone] for Medicare purposes. Please let me know if there are questions or concerns regarding this plan of care. Physician Signature: Date:
--- NOTE | 2021-05-02 08:22 | HP.OTREVAL ---
PALMIRA MONTELONGO, It has been my pleasure to treat YUNIER ZAMORA over the last 3 visits for CMC arthroplasty. Please see the progress note below for an update on the occupational therapy plan of care! Subjective: Pt reports she is 3.5 weeks, pt unable to pay the co-pay. Would like to cancel appts until she is 8 weeks. Objective/Function: R IP 40*. R MP 30*. Therapist completed educating on scar management for pt to complete as HEP , pt educated on purchase of Comfort Cool brace to begin wearing at 6 weeks. pt educated to perform IP and MP flex with supported CMC- at 4 weeks initiate opposition to LF working on this to get at 6 weeks s/p avoid RD/UD and any pinching at this time. Pt stated understanding. Plan Plan: Pt to cancel appts until she is 8 weeks ( ), d/t co-pay being high pt to get comfort cool ordered and initiate wearing at 6 weeks s/p. continue with orthosis at night until 8 weeks Goals - Goals Goal Progress: Progressing Goal Progress: Progressing Goal Progress: Progressing Patient Goals: Regain Mobility, Decrease Pain, Use Hand/Wrist/Arm Normally Again, Be More Independent in ADLS Goal:100% adherence to protocol: Yes Goal:Daily scar massage when approriate: Yes Goal:ROM equal to unaffected hand: Yes Goal:Pre Sales Systems Engineer/Pinch strength at least 75% of unaffected hand: Yes Goal:No pain with affected hand use: Yes Goal:Full use of affected hand in daily activities including: Yes Goal:Decrease scar hypersensitivity: Yes Anticipated Interventions Anticipated Interventions: A/AAROM/PROM, Strengthening, Scar Care, Triggerpoint Release, Desensitization, Modalities, Orthoses, Joint Protection/Energy Conservation, Ergonomic Education, Education re assistive Equipment, Education re Diagnosis Please do not hesitate to contact me at [phone] by phone or if you have questions or concerns regarding this new plan of care! Sincerely, Cherry Person, OTR/L, CHT
== END 2021-05-01 19:00 | disposition home or self-care (01) ==
LOC: OT 13:30
PROVIDERS: PCP Family Medicine
DX: M19.031 Primary osteoarthritis, right wrist (principal)
CPT/HCPCS: 97110; 97166; 97530

== ENCOUNTER 2021-05-23 08:46 | Outpatient (CLI) | payer MEDICARE, MEDICAID, SELFPAY ==
[2021-05-23 12:49] LABS: AST(SGOT) 7 U/L (15-37); Alanine Aminotransfer ALT/SGPT 19 U/L (13-56); Albumin, Serum 3.7 g/dL (3.2-5.0); Alkaline Phosphatase 77 U/L (45-117); Anion Gap 9 (5-15); BUN 16 mg/dL (7-18); BUN/Creat Ratio 19.1 RATIO (10-20); Chloride 101 mmol/L (98-107); Creatinine, Serum 0.84 mg/dL (0.55-1.02); EST Glomerular Filtration Rate 74 mL/min (>60); Est Glom Filt Rate - Afr Amer 90 mL/min (>60); Globulin 3.7 g/dL (2.2-4.2); Glucose 97 mg/dL (74-106); Potassium 3.8 mmol/L (3.5-5.1); Protein, Total 7.4 g/dL (6.4-8.2); Sodium Level 137 mmol/L (136-145)
[2021-05-23 13:28] LABS: Vitamin D,25 Hydroxy 62.3 ng/mL
== END 2021-05-23 23:59 | disposition short-term general hospital (02) ==
LOC: BIMLAB 08:47
PROVIDERS: PCP Family Medicine; Referring Provider Internal Medicine Endocrinology, Diabetes & Metabolism; Visit Provider Internal Medicine Endocrinology, Diabetes & Metabolism
DX: E55.9 Vitamin D deficiency, unspecified (principal); Z86.79 Personal history of other diseases of the circulatory system
CPT/HCPCS: 36415; 80053; 82306

== ENCOUNTER 2021-06-07 10:28 | Outpatient (CLI) | payer MEDICARE, SELFPAY ==
[2021-06-07] MEDS: 0.9% NaCl Peripheral Flush Adult/Peds IV (10:42)
[2021-06-07 11:02] VITALS: BP 104/65; PULSE 73; RESP 16; TEMP 36.6; O2SAT 95
[2021-06-07] MEDS: Zoledronic Acid 5 MG 100 ML 300 MG IV (11:09)
== END 2021-06-07 23:59 | disposition short-term general hospital (02) ==
LOC: MEDOUTP 10:29
PROVIDERS: PCP Family Medicine; Referring Provider Internal Medicine Endocrinology, Diabetes & Metabolism; Visit Provider Internal Medicine Endocrinology, Diabetes & Metabolism
DX: M81.0 Age-related osteoporosis without current pathological fracture (principal)
CPT/HCPCS: 96365; A4216; J3489

== ENCOUNTER 2021-06-17 16:41 | Outpatient (CLI) | payer MEDICARE, MEDICAID, SELFPAY ==
--- NOTE | 2021-06-17 17:25 | RAD_ITS ---
STUDY: X-RAY - ABDOMEN/PELVIS REASON FOR EXAM: Female, 60 years old. Abdominal pain. TECHNIQUE: Upright and supine abdomen. COMPARISON: Pelvis September 26, 2020. FINDINGS: Normal visualized lung bases. There is an unremarkable bowel gas pattern. There is no demonstrated free abdominal air. The visualized liver, spleen and kidneys are grossly normal in size and morphology. Normal soft tissue structures. Normal visualized osseous structures. Surgical clips right upper quadrant. Left iliac stent. Ovoid calcifications right lower quadrant unchanged likely representing phleboliths or calcified lymph nodes.. Phleboliths in the inferior pelvis. RAD/Abd Inc Decub and/or Erect IMPRESSION: No acute findings in the abdomen or pelvis. Electronically Signed: Travis Pulido MD at 5:08 EST Reading Location ID and State: [id number] / , Service support ,
[2021-06-17 18:13] LABS: Absolute Lymphocyte Count 0.73 X10^3/uL (0.83-4.51); Absolute Neutrophil Count 2.4 X10^3/uL (2.0-7.7); Basophil# 0.05 X10^3/uL; Basophil% 1.3 % (0-1); Eosinophil# 0.16 X10^3/uL; Eosinophils% 4.1 % (0-5); Hematocrit 40.3 % (37-47); Hemoglobin 13.3 g/dL (12.0-15.0); Lymphocyte # 0.73 X10^3/ul (0.83-4.51); Lymphocyte % 18.8 % (19-41); Mean Corpuscular Hgb 29.4 pg (27.0-32.0); Mean Corpuscular Volume 89.2 fL (81-99); Mean Platelet Vol. 10.7 fl (6.2-12.0); Monocyte# 0.52 X10^3/uL; Monocyte% 13.4 % (0-10); NRBC Flagged by Analyzer 0 % (0-5); Neutrophil # 2.41 X10^3/uL (2.7-7.7); Neutrophil % 62.1 % (47-70); Platelet Count 305 K/mm3 (150-450); RBC Distribution Width CV 13.5 % (11.6-14.6); RBC Distribution Width SD 43.9 fl (35.1-43.9); Red Blood Count 4.52 M/mm3 (4.2-5.4); White Blood Count 3.9 K/mm3 (4.4-11.0)
[2021-06-17 19:59] LABS: ALB/GLOB Ratio 1.2 RATIO (0.9-2.4); AST(SGOT) 20 U/L (15-37); Alanine Aminotransfer ALT/SGPT 23 U/L (13-56); Alkaline Phosphatase 65 U/L (45-117); Anion Gap 6 (5-15); BUN 12 mg/dL (7-18); BUN/Creat Ratio 16.4 RATIO (10-20); Calcium,Total 8.6 mg/dL (8.5-10.1); Chloride 104 mmol/L (98-107); Creatinine, Serum 0.73 mg/dL (0.55-1.02); EST Glomerular Filtration Rate 87 mL/min (>60); Est Glom Filt Rate - Afr Amer 105 mL/min (>60); Globulin 3.3 g/dL (2.2-4.2); Glucose 88 mg/dL (74-106); Potassium 3.3 mmol/L (3.5-5.1); Protein, Total 7.3 g/dL (6.4-8.2); Sodium Level 138 mmol/L (136-145); Thyroid Stim Hormone (TSH) 1.27 uIU/mL (0.358-3.74)
[2021-06-18 08:47] LABS: Hepatitis C Antibody Non-Reactive (Nonreactive); Vitamin D,25 Hydroxy 48.6 ng/mL
== END 2021-06-17 23:59 | disposition home or self-care (01) ==
LOC: POLAB3 17:20 → RAD 17:23
PROVIDERS: PCP Family Medicine; Visit Provider Family Medicine Geriatric Medicine
DX: Z00.00 Encounter for general adult medical examination without abnormal findings (principal); R10.9 Unspecified abdominal pain; R53.83 Other fatigue
CPT/HCPCS: 36415; 74019; 80053; 82306; 84443; 85025; 86803

== ENCOUNTER 2021-07-09 15:38 | Outpatient (CLI) | payer MEDICARE, SELFPAY ==
[2021-07-09 17:11] LABS: Absolute Lymphocyte Count 0.76 X10^3/uL (0.83-4.51); Basophil# 0.04 X10^3/uL; Basophil% 0.8 % (0-1); Eosinophil# 0.34 X10^3/uL; Eosinophils% 7.2 % (0-5); Hematocrit 40.8 % (37-47); Lymphocyte # 0.76 X10^3/ul (0.83-4.51); Lymphocyte % 16.1 % (19-41); Mean Corp Hgb Conc 34.3 g/dL (32-36); Mean Corpuscular Hgb 30.4 pg (27.0-32.0); Mean Corpuscular Volume 88.7 fL (81-99); Mean Platelet Vol. 10.9 fl (6.2-12.0); Monocyte# 0.58 X10^3/uL; Monocyte% 12.3 % (0-10); NRBC Flagged by Analyzer 0 % (0-5); Neutrophil # 2.99 X10^3/uL (2.7-7.7); Neutrophil % 63.4 % (47-70); Platelet Count 297 K/mm3 (150-450); RBC Distribution Width CV 13.4 % (11.6-14.6); RBC Distribution Width SD 43.7 fl (35.1-43.9); White Blood Count 4.7 K/mm3 (4.4-11.0)
[2021-07-09 17:21] LABS: Anion Gap 4 (5-15); BUN 10 mg/dL (7-18); BUN/Creat Ratio 15.2 RATIO (10-20); Calcium,Total 9.1 mg/dL (8.5-10.1); Chloride 106 mmol/L (98-107); Creatinine, Serum 0.66 mg/dL (0.55-1.02); EST Glomerular Filtration Rate 98 mL/min (>60); Est Glom Filt Rate - Afr Amer 118 mL/min (>60); Glucose 91 mg/dL (74-106); Potassium 4.4 mmol/L (3.5-5.1); Sodium Level 138 mmol/L (136-145)
== END 2021-07-09 23:59 | disposition home or self-care (01) ==
LOC: POLAB3 15:57
PROVIDERS: PCP Family Medicine Geriatric Medicine; Visit Provider Family Medicine Geriatric Medicine
DX: I95.1 Orthostatic hypotension (principal)
CPT/HCPCS: 36415; 80048; 85025

== ENCOUNTER 2021-07-16 14:55 | Outpatient (CLI) | payer MEDICARE, MEDICAID, SELFPAY ==
--- NOTE | 2021-07-16 15:04 | CT_ITS ---
STUDY: LOW DOSE CT LUNG CANCER SCREENING REASON FOR EXAM: Female, 60 years old. Long history of smoking. Screening for lung cancer. RADIATION DOSAGE (If Supplied By Facility): CTDIvol = ( 3.18 ) mGy, DLP = ( 86.14 ) mGycm TECHNIQUE: No contrast was administered. Low dose technique was utilized (average mAS-38 and kVp 120). 1.25 mm axial source images with a slice interval of 1.25-mm were reconstructed in lung windows. 2.5 mm axial source images with a slice interval of 2.5-mm were reconstructed in lung windows. 5.0 mm axial source images with a slice interval of 5.0-mm were reconstructed in soft tissue windows. Nodule measured using lung windows on PACS and/or independent workstation with automated measurement of minimum and maximum diameter. Nodule measurement reported as average diameter rounded to the nearest whole number. Growth is defined as an increase ins size of greater than 1.5 mm. COMPARISON: None. NODULES: Multiple bilateral noncalcified lung nodules, the largest measures 9 mm is in the superior segment of the right lung lower lobe, these nodules have nonspecific appearance. There are no suspicious lung nodules There are no endobronchial lesions. There is no demonstrated pleural abnormality. Normal heart and pericardium. Normal mediastinum. Normal hilar regions. Normal unenhanced pulmonary arteries. Normal aorta arch and descending thoracic aorta. Normal osseous structures. There is no demonstrated abnormality of the visualized upper abdomen. CT/Low Dose CT Lung Screening IMPRESSION: Lung-RADS category 4, suspicious nodules in both lungs the largest measures 9 mm and is in the superior segment of the right lower lobe. These nodules may represent metastatic disease Recommendation: PET scan or screening for primary malignancy, mammogram, CT scan of the abdomen and pelvis. IMPORTANT NOTES FOR USE: ACR Lung-RADS Version 1.0 Assessment Categories Release Date: September 12, 2013 Category: Coded 0-4 bases on nodule(s) with highest degree of suspicion. Negative screen is defined as categories 1 and 2; a positive screen is defined as categories 3 and 4. Category 3 and 4A nodules that are unchanged on interval CT should be coded as category 2, and individuals returned to screening in 12 months. Category 4X: Category 3 or 4 nodules with additional imaging findings that increase the suspicion of lung cancer, such as spiculation, GGN that doubles in size in 1 year, enlarged lymph notes, etc. Category Modifiers: S (significant finding unrelated to lung cancer) and C (prior history of treated lung cancer) may be added to the 0-4 Lung-RADS Electronically Signed: Lowell Moreland MD at 4:07 EST ,
== END 2021-07-16 23:59 | disposition home or self-care (01) ==
LOC: CT 15:01
PROVIDERS: PCP Family Medicine; Referring Provider Family Medicine Geriatric Medicine; Visit Provider Family Medicine Geriatric Medicine
DX: Z87.891 Personal history of nicotine dependence (principal)
CPT/HCPCS: 71271

== ENCOUNTER 2021-07-18 13:40 | Outpatient (CLI) | payer MEDICARE, SELFPAY ==
[2021-07-23 11:09] LABS: PROEL- A/G Ratio 1.4 (0.7-1.7); PROEL- Albumin 3.8 g/dL (2.9-4.4); PROEL- Alpha-1 Globulin 0.3 g/dL (0.0-0.4); PROEL- Alpha-2 Globulin 0.8 g/dL (0.4-1.0); PROEL- Gamma Globulin 0.7 g/dL (0.4-1.8); PROEL- Globulin, Total 2.8 g/dL (2.2-3.9); PROEL- TOTAL PROTEIN 6.6 g/dL (6.0-8.5); PROELU- Alpha-1-Globulin,Ur 1.5 % (.); PROELU- Alpha-2-Globulin,Ur 19.2 % (.); PROELU- Beta Globulin, Ur 28.4 % (.); PROELU- Gamma Globulin, Ur 12.9 % (.); Total Protein, Ur 28.3 mg/dL (Not Estab.)
== END 2021-07-18 23:59 | disposition home or self-care (01) ==
PROVIDERS: PCP Family Medicine Geriatric Medicine; Visit Provider Family Medicine Geriatric Medicine
DX: Z01.89 Encounter for other specified special examinations (principal); E87.1 Hypo-osmolality and hyponatremia
CPT/HCPCS: 36415; 84165; 84166

== ENCOUNTER 2021-07-26 12:15 | Outpatient (CLI) | payer MEDICARE, SELFPAY ==
--- NOTE | 2021-07-26 12:33 | MRI_ITS ---
History: SPINAL STENOSIS, LUMBAR REGION WITH NEUROGENIC CLAUDICATION Technique: T1 and T2 MR imaging of the lumbar spine performed without contrast enhancement in axial and sagittal planes. Comparison: November 13, 2020 Findings: Alignment of the lumbar vertebral bodies is normal. Stable disc space narrowing at the L4-5 level. No bone marrow edema. Conus medullaris and cauda equina are normal. Paraspinal soft tissues are normal. T12-L1: Disc osteophyte complex causes mild compression of the thecal sac. Intact neuroforamina. L1-2: No disc protrusion. Normal caliber spinal canal and neural foramina. L2-3: No disc protrusion. Normal caliber spinal canal and neural foramina. L3-4: No disc protrusion. Facet arthropathy and posterior ligamentous redundancy noted without significant compression of the thecal sac or neural foramina. L4-5: Prominent right posterior lateral disc osteophyte complex causes prominent narrowing of the left lateral recess and adjacent foramen not significantly changed from prior exam. Left L4 laminotomy again noted. L5-S1: No disc protrusion. Normal caliber spinal canal and neural foramina. IMPRESSION: Stable degenerative changes. Prominent narrowing of the left L4-5 lateral recess and adjacent foramen secondary to posterior lateral disc osteophyte complex at 1449 Reported and signed by: Pollo Aguilar MD Electronically Signed: Pollo Aguilar MD at 14:48 EST , MRI/Spine Lumbar (Routine)
== END 2021-07-26 23:59 | disposition home or self-care (01) ==
LOC: MRI 12:17
PROVIDERS: PCP Family Medicine Geriatric Medicine; Referring Provider Family Medicine Geriatric Medicine; Visit Provider Family Medicine Geriatric Medicine
DX: M48.062 Spinal stenosis, lumbar region with neurogenic claudication (principal)
CPT/HCPCS: 72148

== ENCOUNTER 2021-07-29 15:21 | Emergency (ER) | payer MEDICARE, SELFPAY ==
[2021-07-29 15:22] VITALS: BP 108/86; PULSE 87; RESP 17; TEMP 36.4; O2SAT 96; BMI 39.4
[2021-07-29 15:52] LABS: Absolute Lymphocyte Count 0.22 X10^3/uL (0.83-4.51); Absolute Neutrophil Count 6.4 X10^3/uL (2.0-7.7); Basophil# 0.01 X10^3/uL; Basophil% 0.1 % (0-1); Eosinophil# 0.39 X10^3/uL; Eosinophils% 5.3 % (0-5); Hematocrit 45.3 % (37-47); Hemoglobin 15.8 g/dL (12.0-15.0); Lymphocyte # 0.22 X10^3/ul (0.83-4.51); Mean Corp Hgb Conc 34.9 g/dL (32-36); Mean Corpuscular Hgb 30.9 pg (27.0-32.0); Mean Corpuscular Volume 88.5 fL (81-99); Monocyte# 0.32 X10^3/uL; Monocyte% 4.3 % (0-10); NRBC Flagged by Analyzer 0 % (0-5); Neutrophil # 6.44 X10^3/uL (2.7-7.7); POSITIVE DIFFERENTIAL YES; Platelet Count 268 K/mm3 (150-450); RBC Distribution Width CV 13.5 % (11.6-14.6); RBC Distribution Width SD 43.5 fl (35.1-43.9); Red Blood Count 5.12 M/mm3 (4.2-5.4); White Blood Count 7.4 K/mm3 (4.4-11.0)
[2021-07-29 15:59] LABS: Anion Gap 6 (5-15); BUN 9 mg/dL (7-18); BUN/Creat Ratio 11.2 RATIO (10-20); Calcium,Total 9.6 mg/dL (8.5-10.1); Chloride 107 mmol/L (98-107); EST Glomerular Filtration Rate 78 mL/min (>60); Est Glom Filt Rate - Afr Amer 95 mL/min (>60); Estimated Creatinine Clearance 60.62 ml/min; Glucose 115 mg/dL (74-106); Potassium 4.1 mmol/L (3.5-5.1); Sodium Level 138 mmol/L (136-145)
[2021-07-29 16:02] LABS: Differential Indicated SCAN CRITERIA MET
--- NOTE | 2021-07-29 16:17 | ED.VIS.GI ---
HPI HPI - GI History of Present Illness Chief Complaint: Abd Pain Informant: patient Abdominal Pain/Flank Pain Onset: Today Context: - (Woke up around 2 AM with symptoms, about 14 hours ago) Timing: Continuous Quality: Sharp Location: Diffuse (Mostly upper abdomen) Current Severity: Moderate Maximum Severity: Moderate Worsened by: Food Relieved by: Nothing Nausea/Vomiting/Emesis GI Symptom: Positive for Nausea and Vomiting Onset: Today Quality: Positive for Nonbilious; Negative for Blood streaks Diarrhea/Melena/Hematochezia GI Symptom: Positive for Diarrhea; Negative for Melena and Hematochezia Onset: Today Severity: Moderate Associated Symptoms Associated Symptoms: Negative for Dysuria, Frequency, Hematuria and Urgency Narrative Narrative: Patient woke up in the middle of the night with mostly upper abdominal discomfort, vomiting, diarrhea without blood. No fevers or chills. She states the pain radiates up into her entire chest. She denies any shortness of breath. She presents with a family member who she has been with and just got over the exact same symptoms, stomach flu. She is better now. She has had decreased urination today, she did urinate a little this morning but nothing since. The family number states she has not tried to drink any fluids. [facility] Medical History Arthritis Asthma Back problem Bone fracture breast cyst removal Breast lump Carpal tunnel syndrome Chronic bronchitis Chronic headaches COPD (chronic obstructive pulmonary disease) GERD (gastroesophageal reflux disease) Hives Hypothyroidism Hypothyroidism (acquired) IBS (irritable bowel syndrome) Neuropathy Osteoporosis r thumb surgery Recurrent infections Rheumatoid arthritis Home Medications albuterol sulfate 90 mcg/actuation aerosol inhaler 2 puff INHALATION Q6H PRN 06/02/19 [History Last Taken Unknown] calcium carbonate 600 mg calcium (1,500 mg) tablet 600 mg PO BID 06/02/19 [History Last Taken Unknown] diazepam 5 mg tablet 5 mg PO TID PRN 06/02/19 [History Last Taken Unknown] dibucaine 1 % topical ointment 1 applic TOPICAL TID PRN 06/02/19 [History Last Taken Unknown] epinephrine 0.3 mg/0.3 mL injection, auto-injector 0.3 mg IM ONCE 06/02/19 [History Last Taken Unknown] fluticasone 113 mcg-salmeterol 14 mcg/actuation breath activated powdr 1 puff INHALATION BID 06/02/19 [History Last Taken Unknown] hydrocortisone-pramoxine 2.5 %-1 % (4g) rectal cream applic TOPICAL PRN 06/02/19 [History Last Taken Unknown] levothyroxine 75 mcg tablet 75 mcg PO DAILY 06/02/19 [History Last Taken Unknown] loperamide 2 mg tablet 2 mg PO Q4H PRN 06/02/19 [History Last Taken Unknown] montelukast 10 mg tablet 10 mg PO QHS 06/02/19 [History Last Taken Unknown] sumatriptan succinate 100 mg tablet See Rx Instructions PO .COMPLEX 06/02/19 [History Last Taken Unknown] aspirin 81 mg PO DAILY@0800 06/15/20 [History Last Taken Unknown] loratadine 5 mg PO PRN PRN 06/15/20 [History Last Taken Unknown] hydrocodone-acetaminophen 5-325mg 5mg-325mg 1 tablet PO PRN tablet 09/07/20 [History Last Taken Unknown] pregabalin 150 mg capsule 150 mg PO BID cap 09/07/20 [History Last Taken Unknown] atorvastatin 40 mg tablet 40 mg PO DAILY 07/22/21 [History Last Taken Unknown] budesonide 160 mcg-glycopyr 9 mcg-formot 4.8 mcg/actuation HFA inhaler 2 inh INHALATION BID 07/22/21 [History Last Taken Unknown] cholecalciferol (vitamin D3) 50 mcg (2,000 unit) capsule 1,000 unit PO DAILY cap 07/22/21 [History Last Taken Unknown] pantoprazole 40 mg tablet,delayed release 80 mg PO DAILY tab 07/22/21 [History Last Taken Unknown] promethazine 25 mg tablet mg PO PRN 07/22/21 [History Last Taken Unknown] dicyclomine 20 mg PO Q6H PRN PRN #20 capsule 07/29/21 [Rx Last Taken Unknown] metoclopramide HCl [Reglan] 10 mg PO Q6H PRN #14 tab 07/29/21 [Rx Last Taken Unknown] smqrjwmt-popbwbvfd-QT 4 drp LEFT EAR TID #10 ml 07/29/21 [Rx Last Taken Unknown] Allergy/AdvReac Type Severity Reaction Status Date / Time latex Allergy Mild Hives, Verified 07/29/21 15:22 Itching johnson Allergy Unknown Unknown Verified 07/29/21 15:22 house dust Allergy Unknown Unknown Verified 07/29/21 15:22 ciprofloxacin Allergy breathing Verified 07/29/21 15:22 issues gabapentin Allergy Angioedema Verified 07/29/21 15:22 morphine Allergy Unknown Verified 07/29/21 15:22 insects Allergy Unknown Unknown Uncoded 07/29/21 15:22 pollen Allergy Unknown Unknown Uncoded 07/29/21 15:22 metal Allergy Infection Uncoded 07/29/21 15:22 previously Family History Father Bowel disease Heart disease Respiratory disease Severe allergy Mother Thyroid disorder Sister Thyroid disorder Surgical History H/O colonoscopy H/O hemorrhoidectomy H/O oral surgery H/O: History of carpal tunnel release History of esophagogastroduodenoscopy (EGD) History of tonsillectomy History of total abdominal hysterectomy S/P insertion of iliac artery stent Social History household members: none housing: house current occupational status: unemployed and disabled Smoking Status: Never smoker alcohol intake: never substance use type: does not use what type of physical activity do you participate in: none seatbelt use: never do you feel safe at home: Yes ROS ROS ED Constitutional Constitutional ED: Reports malaise; Denies chills or fever(s) Eyes Eyes: Denies change in vision or diplopia ENT ENT ED: Denies rhinorrhea or sore throat Cardiovascular Cardiovascular: Reports chest pain; Denies palpitations Respiratory/Chest Respiratory/Chest: Denies cough or dyspnea Gastrointestinal Gastrointestinal: Reports as per HPI, abdominal pain, diarrhea, nausea and vomiting Genitourinary Genitourinary ED: Denies dysuria or hematuria Musculoskeletal Musculoskeletal: Denies back pain or neck pain Integumentary Reports pruritus and rash; Denies abscess Neurologic Neurologic: Denies headache(s), paresthesias or weakness Psychiatric Psychiatric: Denies auditory hallucinations or suicidal thoughts EXAM Physical Exam Const Vital Signs: 07/29/21 15:22 07/29/21 18:00 Temperature 97.6 F L Temperature Source Temporal Pulse Rate 87 79 Respiratory Rate 17 16 Blood Pressure 108/86 H 117/72 Blood Pressure Mean 93 87 Pulse Ox 96 98 Oxygen Delivery Method Room Air Room Air Positive well nourished and well developed General Appearance ED: well developed and NAD HEENT Reports moist mucous membranes normocephalic and atraumatic Eyes PERRL and EOMs intact bilaterally Neck full ROM and supple Chest Wall inspection of chest normal Chest Narrative: Diffusely mildly tender Resp normal respiratory effort and clear to auscultation bilaterally Cardio regular rate, regular rhythm and no murmurs Rate: Negative for tachycardic GI non-distended GI Narrative: Mostly tender epigastrium and left upper quadrant. Soft no guarding or rebound. Auscultation: normoactive bowel sounds Palpation: soft Back/Spine no CVA tenderness General Back: other FROM Extremity normal to inspection General Extremety ED: Negative for edema, pulses abnormal or tenderness General Extremity: Negative for edema or pulses abnormal Neuro oriented x3, CN's II-XII intact bilaterally and no sensory deficits noted Sensorium / Orientation: awake and alert Motor Exam: strength 5/5 throughout Psych mental status grossly normal and thought process normal Psych Narrative: Extremely anxious Skin no wounds Skin Narrative: Few scattered extremity very small scabbed macules that patient states itch. None tender or infected. MDM MDM MDM Narrative Medical decision making narrative: Labs unremarkable. Clinically consistent with viral gastroenteritis given family member with the same symptoms recently. She feels much better after Bentyl, Mylanta, Reglan, and IV fluids. She then stated that her left ear was bothering her and wanted me to look at it. She has had no discharge or changes in her hearing. She states she has been a little congested recently. The TMs on both ears are normal. The EAC appears normal on both sides and there is no erythema, focal lesion/pustule/abscess, or edema of the EAC, but manipulating the pinna and the tragus of the left ear reproduces her pain. Around can is not on the market anymore, and I do not think I can get her hydrocortisone drops for the ear without an antibiotic as well so I will give her the equivalent of Cortisporin otic suspension to use for a few days and follow-up if worse. Supportive care advised with regards to her viral gastroenteritis. Lab Data Attestation: I reviewed the patient's lab results. Labs: Laboratory Results - last 24 hr 07/29/21 07/29/21 07/29/21 13:30 15:35 15:35 WBC 7.4 RBC 5.12 Hgb 15.8 H Hct 45.3 MCV 88.5 MCH 30.9 MCHC 34.9 RDW Std Deviation 43.5 RDW Coeff of Kely 13.5 Plt Count 268 MPV 11.0 Immature Gran % (Auto) 0.300 Neut % (Auto) 87.0 H Lymph % (Auto) 3.0 L [place] % (Auto) 4.3 Eos % (Auto) 5.3 H Baso % (Auto) 0.1 Absolute Neuts (auto) 6.4 Absolute Lymphs (auto) 0.22 L Nucleated RBC % 0 Differential Comment Platelet Estimate ADEQUATE RBC Morphology NORM C+C Sodium 138 138 Potassium 4.1 4.1 Chloride 107 107 Carbon Dioxide 24.0 25.0 Anion Gap 7 6 BUN 8 9 Creatinine 0.76 0.80 Estim Creat Clear Calc 63.82 60.62 Est GFR (MDRD) Af Amer 101 95 Est GFR (MDRD) Non-Af 83 78 BUN/Creatinine Ratio 10.6 11.2 Glucose 116 H 115 H Calcium 9.6 9.6 Total Bilirubin 1.30 H AST 27 ALT 32 Alkaline Phosphatase 85 Total Protein 8.0 Albumin 4.5 Globulin 3.5 Albumin/Globulin Ratio 1.3 Lipase 41 L Urine Color Urine Clarity Urine pH Ur Specific Center Line Urine Protein Urine Glucose (UA) Urine Ketones Urine Occult Blood Urine Nitrite Urine Bilirubin Urine Urobilinogen Ur Leukocyte Esterase Urine RBC Urine WBC Ur Squamous Epith Cells Urine Bacteria Urine Mucus 07/29/21 17:20 WBC RBC Hgb Hct MCV MCH MCHC RDW Std Deviation RDW Coeff of Kely Plt Count MPV Immature Gran % (Auto) Neut % (Auto) Lymph % (Auto) [place] % (Auto) Eos % (Auto) Baso % (Auto) Absolute Neuts (auto) Absolute Lymphs (auto) Nucleated RBC % Differential Comment Platelet Estimate RBC Morphology Sodium Potassium Chloride Carbon Dioxide Anion Gap BUN Creatinine Estim Creat Clear Calc Est GFR (MDRD) Af Amer Est GFR (MDRD) Non-Af BUN/Creatinine Ratio Glucose Calcium Total Bilirubin AST ALT Alkaline Phosphatase Total Protein Albumin Globulin Albumin/Globulin Ratio Lipase Urine Color Yellow Urine Clarity Clear Urine pH 8.0 Ur Specific Center Line 1.010 Urine Protein 15 H Urine Glucose (UA) Normal Urine Ketones 15 H Urine Occult Blood Negative Urine Nitrite Negative Urine Bilirubin Negative Urine Urobilinogen 1 H Ur Leukocyte Esterase 25 H Urine RBC 0 SEEN Urine WBC 0-5 SEEN Ur Squamous Epith Cells 0 SEEN Urine Bacteria RARE Urine Mucus 0 SEEN Discharge Plan Triage Chief Complaint: Abd Pain ED Provider: Wolfgang Hernandez Dx/Rx/DC Orders Clinical Impression: Viral gastroenteritis, Mild dehydration, Left otitis externa Instructions: ED External Ear Infection (Adult), Viral Gastroenteritis Prescriptions: New ylrzxyrk-ddcqafogk-QZ 3.5-10,000-1 mg/mL-unit/mL-% drops,suspension 4 drp LEFT EAR TID Qty: 10 RF: 0 metoclopramide HCl [Reglan] 10 mg tablet 10 mg PO Q6H PRN (Reason: nausea and vomiting) Qty: 14 RF: 0 dicyclomine 10 MG capsule 20 mg PO Q6H PRN PRN (Reason: abdominal discomfort) Qty: 20 RF: 0 No Action levothyroxine 75 mcg tablet 75 mcg PO DAILY RF: 0 fluticasone propion-salmeterol 113-14 mcg/actuation aerosol powdr breath activated 1 puff INHALATION BID RF: 0 calcium carbonate 600 mg calcium (1,500 mg) tablet 600 mg PO BID RF: 0 dibucaine 1 % ointment 1 applic TOPICAL TID PRN (Reason: Pain/Inflammation) RF: 0 loperamide 2 mg tablet 2 mg PO Q4H PRN (Reason: Diarrhea) RF: 0 hydrocortisone-pramoxine 2.5-1 % (4g) cream TOPICAL PRN (Reason: Itching) RF: 0 epinephrine 0.3 mg/0.3 mL auto-injector 0.3 mg IM ONCE RF: 0 albuterol sulfate 90 mcg/actuation HFA aerosol inhaler 2 puff INHALATION Q6H PRN (Reason: asthma) RF: 0 montelukast [Singulair] 10 mg tablet 10 mg PO QHS RF: 0 sumatriptan succinate 100 mg tablet See Rx Instructions PO .COMPLEX RF: 0 diazepam 5 mg tablet 5 mg PO TID PRN (Reason: Anxiety) RF: 0 pregabalin 150 mg capsule 150 mg PO BID RF: 0 hydrocodone-acetaminophen 5-325 mg tablet 1 tablet PO PRNRF: 0 promethazine 25 mg tablet PO PRN (Reason: nausea and vomiting) RF: 0 cholecalciferol (vitamin D3) 50 mcg (2,000 unit) capsule 1,000 unit PO DAILY RF: 0 atorvastatin 40 mg tablet 40 mg PO DAILY RF: 0 Breztri Aerosphere 160-9-4.8 mcg/actuation HFA aerosol inhaler 2 inh inhalation BID RF: 0 pantoprazole 40 mg tablet,delayed release (DR/EC) 80 mg PO DAILY RF: 0 aspirin 81 MG tablet,chewable 81 mg PO DAILY@0800 RF: 0 loratadine 10 MG capsule 5 mg PO PRN PRN (Reason: Allergies) RF: 0 Primary Care Provider: Brian Baez Chi Referrals: Brian Baez Chi, MD [Primary Care Provider] - 3-5 Days if not improving Disposition Disposition: Home, Self Care
[2021-07-29 16:27] LABS: Platelet Estimate ADEQUATE (ADEQ); Red Cell Morphology NORM C+C NORMAL (NORM C&C)
[2021-07-29 16:40] LABS: ALB/GLOB Ratio 1.3 RATIO (0.9-2.4); AST(SGOT) 27 U/L (15-37); Alanine Aminotransfer ALT/SGPT 32 U/L (13-56); Albumin, Serum 4.5 g/dL (3.2-5.0); Alkaline Phosphatase 85 U/L (45-117); Anion Gap 7 (5-15); BUN 8 mg/dL (7-18); BUN/Creat Ratio 10.6 RATIO (10-20); Calcium,Total 9.6 mg/dL (8.5-10.1); Chloride 107 mmol/L (98-107); Creatinine, Serum 0.76 mg/dL (0.55-1.02); EST Glomerular Filtration Rate 83 mL/min (>60); Est Glom Filt Rate - Afr Amer 101 mL/min (>60); Estimated Creatinine Clearance 63.82 ml/min; Globulin 3.5 g/dL (2.2-4.2); Glucose 116 mg/dL (74-106); Lipase 41 U/L (73-393); Potassium 4.1 mmol/L (3.5-5.1); Sodium Level 138 mmol/L (136-145)
[2021-07-29] MEDS: Metoclopramide 10 MG/2 ML Vial IV (16:58)
[2021-07-29] MEDS: 0.9% Normal Saline 1,000 ML 1000 ML IV (16:58)
[2021-07-29] MEDS: Ketorolac 30 MG/ML Syringe IV (16:58)
[2021-07-29] MEDS: Dicyclomine 20 MG/2 ML Vial IM (16:58)
[2021-07-29 17:28] LABS: Mucous, Urine 0 SEEN /hpf (<or=2+); Red Blood Cells-Urine 0 SEEN /hpf (0-5); Squamous Epithelial Cells - UA 0 SEEN /hpf (5-10)
[2021-07-29 17:32] LABS: Color, Urine Yellow (Yellow); Glucose, Dipstick Normal (Normal); Ketone-Dipstick 15 mg/dl (Negative); Leukocyte Esterase-Dipstick 25 /ul (Negative); Nitrite-Dipstick Negative (Negative); Occult Blood-Urine Negative /ul (Negative); Protein-Dipstick 15 mg/dl (Negative); Urine Bilirubin Dipstick Negative (Negative); Urine Clarity Clear (Clear); Urine Urobilinogen 1 mg/dl (Normal)
[2021-07-29 17:42] LABS: White Blood Cells 0-5 SEEN /hpf (0-5)
[2021-07-29 17:44] LABS: Bacteria RARE /hpf (None Seen)
[2021-07-29 18:00] VITALS: BP 117/72; PULSE 79; RESP 16; O2SAT 98
[2021-07-29 19:42] VITALS: BP 138/68; PULSE 66; RESP 14; TEMP 36.9; O2SAT 98
== END 2021-07-29 19:45 | disposition home or self-care (01) ==
PROVIDERS: Emergency Provider Emergency Medicine; PCP Family Medicine Geriatric Medicine; Visit Provider Emergency Medicine
DX: A08.4 Viral intestinal infection, unspecified (principal); M06.9 Rheumatoid arthritis, unspecified; J44.9 Chronic obstructive pulmonary disease, unspecified; E86.0 Dehydration; H60.92 Unspecified otitis externa, left ear; J45.909 Unspecified asthma, uncomplicated; K21.9 Gastro-esophageal reflux disease without esophagitis; E03.9 Hypothyroidism, unspecified; Z79.890 Hormone replacement therapy; Z79.899 Other long term (current) drug therapy
CPT/HCPCS: 80048; 80053; 81001; 83690; 85025; 96361; 96372; 96374; 96375; 99284; J7030; A4216

== ENCOUNTER 2021-07-31 08:13 | Outpatient (CLI) | payer MEDICARE, SELFPAY ==
--- NOTE | 2021-07-31 09:00 | PET_ITS ---
EXAMINATION: FDG PET/CT INDICATIONS: A 60-year-old female with history of pulmonary nodularity. COMPARISON EXAMINATION: CT of the chest report dated 07/16/21 NON-INDEX LESION SIZE SUV INTERPRETATION Bilateral axilla 1.6 (max) Quantitative criteria for viable neoplasm are not fulfilled TECHNIQUE: Following the intravenous administration of 12.58 mCi of F-18 deoxyglucose via the left antecubital fossa, multiplanar image acquisitions of the neck, chest, abdomen and pelvis to level of mid thigh, obtained at one hour post radiopharmaceutical administration contemporaneously interpreted with the current CT of the neck, chest, abdomen and pelvis to level of mid thigh, dated 07/31/[address] of the chest report dated 07/16/21 reveal: SERUM GLUCOSE LEVEL: 100 mg/dl. HEIGHT: 62 inches. WEIGHT: 216 lbs. FINDINGS: 1. There is no quantitative scintigraphic evidence of abnormal increased glucose metabolism within the context of the bilateral hemithorax pulmonary parenchyma to correlate with structural changes noted on review of CT of the thorax dated 07/31/21. 2. Normal physiologic distribution of the radiopharmaceutical is apparent in the hepatic and splenic parenchyma, both renal units, bladder and visualized intestinal tract. The visualized portion of the cerebral cortical-subcortical structures demonstrate symmetric and preserved glucose metabolism. There is visualization of the right-left thyroid colloid of a vaguely u-shaped thyroid gland most consistent with goiter formation and potential thyroid autonomy. Mild increased radiopharmaceutical concentration is observed in the bilateral axillary regions generating a calculated maximal standard uptake value of 1.6. Quantitative criteria for viable neoplasm are not fulfilled. Pertinent CT findings are as follows: CHEST: Parenchymal densities-nodules defined in the right and left hemithorax demonstrate no evidence of quantitatively significant increased FDG uptake previously described. Right and left axillary soft tissue with fatty hilus is ametabolic. Subcentimeter scattered mediastinal soft tissue densities reveal no evidence of increased tracer uptake. ABDOMEN AND PELVIS: The gallbladder is surgically absent. There is borderline fatty metamorphosis-steatosis defined in the hepatic parenchyma. There is atherosclerotic calcification defined in the abdominal aorta without evidence of dilatation-aneurysm formation. Pelvic arterial calcification is observed. Stent placement is noted in the apparent left common iliac artery. Right and left inguinal soft tissue densities with fatty hilus are ametabolic. There appears to be evidence of apparent lipoma formation within the right proximal anterior soft tissue compartment. SKELETAL: Degenerative changes are noted in the cervical, thoracic and lumbar spine without evidence of increased radiopharmaceutical concentration. PET/PET/CT Tumor Base -Thigh Init IMPRESSION: 1. NEGATIVE EXAMINATION. There is no quantitative scintigraphic evidence of abnormal increased glucose metabolism within the context of the bilateral hemithorax pulmonary parenchyma to correlate with structural changes noted on review of CT of the thorax dated 07/31/21. 2. Anatomic stability may be ensured in the non-glucose avid bilateral hemithorax pulmonary parenchymal densities with repeat FDG PET-CT imaging and/or CT of the chest in 3-6 months if clinically indicated. (Rosanna, Seminars in Thoracic and Cardiovascular Surgery 14:292, 2002). Electronic Signature Manuel Morgan D.O. Accurate Quantification of SUVs for this report are calculated using the exclusive [employer], ([place]. Patent No. [id number] [id number] 983). Standardization and correction of the FDG SUV metric exclusively available with [employer] intellectual property, allow for vendor non-specific objective quantitative sequential FDG PET-CT comparison and otherwise unobtainable optimization of the sensitivity and specificity of the examination. Electronically Signed: Manuel Morgan DO at 17:13 EDT ,
== END 2021-07-31 23:59 | disposition home or self-care (01) ==
LOC: ONC 08:15
PROVIDERS: PCP Family Medicine Geriatric Medicine; Referring Provider Family Medicine Geriatric Medicine; Visit Provider Family Medicine Geriatric Medicine
DX: R91.8 Other nonspecific abnormal finding of lung field (principal)
CPT/HCPCS: 78815; A9588

== ENCOUNTER 2021-08-07 07:41 | Outpatient (CLI) | payer MEDICARE, MEDICAID, SELFPAY ==
--- NOTE | 2021-08-07 07:42 | CT_ITS ---
STUDY: CT ABDOMEN AND PELVIS WITH CONTRAST REASON FOR EXAM: Female, 60 years old. Abdominal pain/r/o metastatic disease. Prior cholecystectomy and appendectomy. RADIATION DOSAGE (If Supplied By Facility): CTDIvol = ( 20.30 ) mGy, DLP = ( 1371.61 ) mGycm TECHNIQUE: Transaxial images were obtained from the dome of the diaphragm to the symphysis pubis with oral contrast. Oral and IV Readi-CAT and 100mL Isovue-300 was administered. Sagittal and coronal images were reconstructed. Individualized dose optimization techniques were used for this CT. COMPARISON: None. FINDINGS: There is a faintly seen 7.5 mm noncalcified nodule in the anterior aspect of the right lower lobe in the superior segment. CT scan of the thorax is recommended for further evaluation. There is also evidence of a 5.6 mm noncalcified nodule in the peripheral lateral aspect of the right lower lobe. Mild linear atelectasis and/or scarring in the anterior aspect of the right lower. Small pericardial effusion. There is decreased attenuation of the liver consistent with steatosis. There are surgical clips in the gallbladder fossa consistent with a prior cholecystectomy. Normal spleen. Normal pancreas. Normal bilateral adrenal glands. Normal right kidney. Normal left kidney. Normal visualized stomach. Normal small intestine. Normal colon. There are surgical clips in the region of the appendix consistent with a prior appendectomy. There is scattered atherosclerotic calcification of the abdominal aorta, without a demonstrated aneurysm. A vascular stent is seen in the left common iliac artery. Normal inferior vena cava. Normal retroperitoneum. Normal urinary bladder. There is absence of the uterus consistent with a prior hysterectomy. Normal abdominal wall. There are degenerative changes of the visualized lumbar spine. CT/Abdomen/Pelvis WITH Contrast IMPRESSION: Pulmonary nodules at the right lung base as described. Correlation with a CT scan of the thorax is recommended. Fatty infiltration of the liver. Electronically Signed: Basilio Colindres MD at 15:31 EDT ,
--- NOTE | 2021-08-07 08:27 | BI_ITS ---
MAMMOGRAPHY - BILATERAL SCREENING REASON FOR EXAM: Female, 60 years old. Routine annual screening examination. PERTINENT HISTORY: Non-contributory. Remote right excisional breast biopsy. TECHNIQUE: Digital bilateral breast gladys (3D mammographic acquisition) in the CC and MLO projections. 2-D mediolateral oblique (MLO) and craniocaudad (CC) views of both breasts were obtained. CAD: Full Field Digital Mammography with Computer Added Detection was performed. COMPARISON: No comparison mammograms available at this time. If any prior films become available, an addendum to this report can be generated. FINDINGS: Breast Composition: There are scattered areas of fibroglandular density. There is a faint 1.1 cm x 0.7 cm nodule in the anterior upper lateral aspect of the left breast. Correlation with ultrasound is recommended. No other significant abnormalities are identified. BI/SCRN MAMM (CAD)W/GLADYS BILAT IMPRESSION: There is a faint 1.1 cm x 0.7 cm nodule in the anterior upper outer aspect of the left breast. Correlation with ultrasound is recommended. ASSESSMENT CATEGORY: BIRADS Category 0: Incomplete. Need additional imaging evaluation. A letter regarding these results will be sent to the patient by the facility within 30 days. Approximately 10% of breast cancers are not detected by mammography. A normal mammogram should not delay biopsy of a clinically suspicious abnormality. [id number] Electronically Signed: Basilio Colindres MD at 9:44 EDT ,
--- NOTE | 2021-08-07 12:46 | US_ITS ---
STUDY: ULTRASOUND BREAST - LEFT REASON FOR EXAM: Female, 60 years old. Abnormal screening mammogram. TECHNIQUE: Axial and longitudinal images of the LEFT breast were performed with a high resolution ultrasound transducer. # OF IMAGES: 34 COMPARISON: Comparison is made with prior mammogram dated 08/07/2021. FINDINGS: LEFT Breast: The upper lateral aspect of the left breast was examined by ultrasound. There is evidence of a mildly dilated retroareolar ducts. No other abnormality is seen. An additional mammographic views will be obtained. US/Breast Limited Unilateral IMPRESSION: Mild dilatation of retroareolar ducts. Additional mammographic imaging will be obtained. ASSESSMENT CATEGORY: BIRADS Category 0: Incomplete. Need additional imaging evaluation. A letter regarding these results will be sent to the patient by the facility within 30 days. Electronically Signed: Basilio Colindres MD at 8:52 EDT ,
--- NOTE | 2021-08-07 13:21 | BI_ITS ---
MAMMOGRAPHY - UNILATERAL DIAGNOSTIC: LEFT BREAST REASON FOR EXAM: Female, 60 years old. Abnormal screening mammogram. PERTINENT HISTORY: TECHNIQUE: 90 degree lateral view of the left breast was obtained. CAD: Full Field Digital Mammography with Computer Added Detection was performed. COMPARISON: Comparison is made with prior examination done earlier today. FINDINGS: Breast Composition: There are scattered areas of fibroglandular density. There are no dominant masses or suspicious calcifications. Stable examination. No other significant abnormalities are identified. There has been no significant change since the prior study. BI/DIAG MAMM W/CAD, UNILAT IMPRESSION: Stable unilateral diagnostic mammogram. One year follow-up mammogram recommended. (A) ASSESSMENT CATEGORY: BIRADS Category 2: Benign. A letter regarding these results will be sent to the patient by the facility within 30 days. Approximately 10% of breast cancers are not detected by mammography. A normal mammogram should not delay biopsy of a clinically suspicious abnormality. Electronically Signed: Basilio Colindres MD at 13:56 EDT ,
== END 2021-08-07 23:59 | disposition home or self-care (01) ==
PROVIDERS: PCP Family Medicine Geriatric Medicine; Visit Provider Family Medicine Geriatric Medicine
DX: Z12.31 Encounter for screening mammogram for malignant neoplasm of breast (principal); N63.22 Unspecified lump in the left breast, upper inner quadrant; R10.9 Unspecified abdominal pain; R93.1 Abnormal findings on diagnostic imaging of heart and coronary circulation
CPT/HCPCS: 74177; 76642; 77063; 77065; 77067; Q9967

== ENCOUNTER → 2021-09-17 | Outpatient (CLI) | payer MEDICARE, MEDICAID, SELFPAY ==
[2021-09-17 17:17] LABS: Absolute Lymphocyte Count 0.77 X10^3/uL (0.83-4.51); Absolute Neutrophil Count 3.2 X10^3/uL (2.0-7.7); Basophil# 0.04 X10^3/uL; Basophil% 0.7 % (0-1); Eosinophil# 0.91 X10^3/uL; Eosinophils% 16.5 % (0-5); Hematocrit 40.6 % (37-47); Hemoglobin 13.5 g/dL (12.0-15.0); Lymphocyte # 0.77 X10^3/ul (0.83-4.51); Lymphocyte % 13.9 % (19-41); Mean Corp Hgb Conc 33.3 g/dL (32-36); Mean Corpuscular Hgb 29.9 pg (27.0-32.0); Mean Corpuscular Volume 89.8 fL (81-99); Mean Platelet Vol. 10.8 fl (6.2-12.0); Monocyte# 0.62 X10^3/uL; Monocyte% 11.2 % (0-10); NRBC Flagged by Analyzer 0 % (0-5); Neutrophil # 3.17 X10^3/uL (2.7-7.7); Neutrophil % 57.3 % (47-70); Platelet Count 323 K/mm3 (150-450); RBC Distribution Width CV 13.1 % (11.6-14.6); RBC Distribution Width SD 43.2 fl (35.1-43.9); Red Blood Count 4.52 M/mm3 (4.2-5.4); White Blood Count 5.5 K/mm3 (4.4-11.0)
[2021-09-17 17:23] LABS: ALB/GLOB Ratio 1.1 RATIO (0.9-2.4); AST(SGOT) 34 U/L (15-37); Alanine Aminotransfer ALT/SGPT 37 U/L (13-56); Albumin, Serum 3.8 g/dL (3.2-5.0); Alkaline Phosphatase 107 U/L (45-117); Anion Gap 4 (5-15); BUN 13 mg/dL (7-18); BUN/Creat Ratio 18.6 RATIO (10-20); Calcium,Total 9.1 mg/dL (8.5-10.1); Chloride 104 mmol/L (98-107); EST Glomerular Filtration Rate 91 mL/min (>60); Est Glom Filt Rate - Afr Amer 111 mL/min (>60); Globulin 3.5 g/dL (2.2-4.2); Glucose 107 mg/dL (74-106); Potassium 4.3 mmol/L (3.5-5.1); Protein, Total 7.3 g/dL (6.4-8.2); Sodium Level 137 mmol/L (136-145); Thyroid Stim Hormone (TSH) 3.08 uIU/mL (0.358-3.74)
[2021-09-17 17:24] LABS: Vitamin D,25 Hydroxy 56.4 ng/mL
== END | disposition home or self-care (01) ==
LOC: POLAB3 14:32
PROVIDERS: PCP Family Medicine Geriatric Medicine; Visit Provider Family Medicine Geriatric Medicine
DX: I10 Essential (primary) hypertension (principal); E55.9 Vitamin D deficiency, unspecified
CPT/HCPCS: 36415; 80053; 82306; 84443; 85025

== ENCOUNTER → 2021-11-04 | Outpatient (CLI) | payer MEDICARE, MEDICAID, SELFPAY ==
[2021-11-04 16:40] LABS: Amphetamine Urine VISTA NEGATIVE (<1000 ng/mL); Barbiturate Urine VISTA NEGATIVE (< 200 ng/mL); Benzodiazepine Urine VISTA NEGATIVE (< 200 ng/mL); Cocaine Urine VISTA NEGATIVE (< 300 ng/mL); Ecstacy Urine VISTA NEGATIVE (< 500 ng/mL); Methadone Urine VISTA NEGATIVE (< 300 ng/mL); PCP Urine VISTA NEGATIVE (< 25 ng/mL); THC Urine VISTA NEGATIVE (< 50 ng/mL); Vista UDS pH Range 4
== END | disposition home or self-care (01) ==
LOC: LAB 14:50
PROVIDERS: PCP Family Medicine Geriatric Medicine; Referring Provider Anesthesiology Pain Medicine; Visit Provider Anesthesiology Pain Medicine
DX: F11.20 Opioid dependence, uncomplicated (principal)
CPT/HCPCS: 80307

== ENCOUNTER → 2021-11-06 | Outpatient (CLI) | payer MEDICARE, SELFPAY ==
--- NOTE | 2021-11-06 10:03 | CT_ITS ---
INDICATION: F/U NODULES EXAMINATION: CT CHEST WITH CONTRAST - CT Chest W/ Contrast Injection TECHNIQUE: Helically acquired images were obtained of the chest following IV contrast. A radiation dose optimization technique was used for this scan. IV Contrast dosage and agent: 100 cc [id number]-300 COMPARISON: CT chest with contrast from 07/16/2021. FINDINGS: Lungs/pleura: The central airways are patent. There is redemonstration of scattered stable bilateral pulmonary nodules. For example the largest nodules are as follow: * 9 mm in the superior aspect of the right upper lobe. (4:37). * 5 mm in the left upper lobe (4:36). * 5 mm in the right lower lobe (4:46). No new or enlarging mass. Scattered areas of atelectasis. No pleural effusion or pneumothorax. Mediastinum: Heart size is normal. Stable small pericardial effusion. No mass or lymphadenopathy. Vasculature: Normal course and caliber of the pulmonary arteries with no large central filling defects. Normal course and caliber of the thoracic aorta. Bones/soft tissues: No destructive osseous lesions. No acute findings. Visualized upper abdomen: Status post cholecystectomy. Small hiatal hernia. CT/Chest WITH Contrast IMPRESSION: 1. Stable bilateral pulmonary nodules. Follow-up per FLEISCHNER criteria recommended. 2. No new or enlarging mass. 3. Stable small pericardial effusion. Electronically Signed: Andrei Gallegos, at 16:06 EDT ,
== END | disposition home or self-care (01) ==
LOC: CT 10:02
PROVIDERS: PCP Family Medicine Geriatric Medicine; Referring Provider Internal Medicine Hematology & Oncology; Visit Provider Internal Medicine Hematology & Oncology
DX: R91.1 Solitary pulmonary nodule (principal)
CPT/HCPCS: 71260; Q9967

== ENCOUNTER 2021-11-17 08:59 | Emergency (ER) | payer MEDICARE, MEDICAID, SELFPAY ==
[2021-11-17 09:00] VITALS: BP 103/74; PULSE 79; RESP 14; TEMP 36.2; O2SAT 96; BMI 39.1
--- NOTE | 2021-11-17 09:20 | EDS_ITS ---
HPI History of Present Illness Chief Complaint: General Illness Detail of Chief Complaint: Not feeling well for 4 days Informant: patient Narrative Narrative: Patient presents the emergency department complaint of not feeling well for the last 4 days. Patient says she is had a runny nose and intermittent sore throat. She complains of some left ear pain. She complains of some pain in her low back at times. She had some mild cough. She denies urinary symptoms. She denies COVID exposures. She has been vaccinated against COVID and has had her booster. She has had the flu shot as well. She was around her nephews who had runny noses recently. Prior similar symptoms: No PFSH PFSH Medical History Arthritis Asthma Back problem Bone fracture breast cyst removal Breast lump Carpal tunnel syndrome Chronic bronchitis Chronic headaches COPD (chronic obstructive pulmonary disease) GERD (gastroesophageal reflux disease) Hives Hypothyroidism Hypothyroidism (acquired) IBS (irritable bowel syndrome) Multiple lung nodules Neuropathy BASILIO on CPAP Osteoporosis r thumb surgery Recurrent infections Rheumatoid arthritis Home Medications albuterol sulfate 90 mcg/actuation aerosol inhaler 2 puff inhalation Q6H PRN asthma 06/02/19 [History Last Taken Unknown] diazepam 5 mg tablet 5 mg PO TID PRN Anxiety 06/02/19 [History Last Taken Unknown] dibucaine 1 % topical ointment 1 applic topical TID PRN Pain/Inflammation 06/02/19 [History Last Taken Unknown] epinephrine 0.3 mg/0.3 mL injection, auto-injector 0.3 mg IM ONCE 06/02/19 [History Last Taken Unknown] hydrocortisone-pramoxine 2.5 %-1 % (4g) rectal cream applic topical PRN Itching 06/02/19 [History Last Taken Unknown] levothyroxine 75 mcg tablet 75 mcg PO DAILY 06/02/19 [History Last Taken Unknown] sumatriptan succinate 100 mg tablet See Rx Instructions PO .COMPLEX 06/02/19 [History Last Taken Unknown] aspirin 81 mg chewable tablet 81 mg PO DAILY@0800 06/15/20 [History Last Taken Unknown] loratadine 10 mg capsule 5 mg PO PRN PRN Allergies 06/15/20 [History Last Taken Unknown] hydrocodone-acetaminophen 5-325mg 5mg-325mg 1 tablet PO PRN 09/07/20 [History Last Taken Unknown] pregabalin 150 mg capsule 150 mg PO BID 09/07/20 [History Last Taken Unknown] atorvastatin 40 mg tablet 40 mg PO DAILY 07/22/21 [History Last Taken Unknown] budesonide 160 mcg-glycopyr 9 mcg-formot 4.8 mcg/actuation HFA inhaler (Breztri Aerosphere) 2 inh inhalation BID 07/22/21 [History Last Taken Unknown] cholecalciferol (vitamin D3) 50 mcg (2,000 unit) capsule 1,000 unit PO DAILY 07/22/21 [History Last Taken Unknown] promethazine 25 mg tablet mg PO PRN nausea and vomiting 07/22/21 [History Last Taken Unknown] dicyclomine 10 mg capsule 20 mg PO Q6H PRN PRN abdominal discomfort #20 CAPSULES 07/29/21 [Rx Last Taken Unknown] metoclopramide HCl 10 mg tablet (Reglan) 10 mg PO Q6H PRN nausea and vomiting #14 tabs 07/29/21 [Rx Last Taken Unknown] zvjmankx-volkuqwom-nuolwvtps 3.5 mg-10,000 unit/mL-1 % ear drops,susp 4 drp LEFT EAR TID #10 mL 07/29/21 [Rx Last Taken Unknown] pantoprazole 40 mg tablet,delayed release 40 mg PO BID 11/13/21 [History Last Taken Unknown] Allergy/AdvReac Type Severity Reaction Status Date / Time prednisone Allergy Severe Angioedema Verified 11/17/21 09:02 latex Allergy Mild Hives, Verified 11/17/21 09:02 Itching johnson Allergy Unknown Unknown Verified 11/17/21 09:02 house dust Allergy Unknown Unknown Verified 11/17/21 09:02 ciprofloxacin Allergy breathing Verified 11/17/21 09:02 issues gabapentin Allergy Angioedema Verified 11/17/21 09:02 morphine Allergy Unknown Verified 11/17/21 09:02 insects Allergy Unknown Unknown Uncoded 11/17/21 09:02 pollen Allergy Unknown Unknown Uncoded 11/17/21 09:02 metal Allergy Infection Uncoded 11/17/21 09:02 previously Family History Father Bowel disease Heart disease Respiratory disease Severe allergy Mother Thyroid disorder Sister Thyroid disorder Brother Prostate cancer Surgical History H/O colonoscopy H/O hemorrhoidectomy H/O oral surgery H/O: History of carpal tunnel release History of esophagogastroduodenoscopy (EGD) History of tonsillectomy History of total abdominal hysterectomy S/P insertion of iliac artery stent Social History household members: none housing: house current occupational status: unemployed and disabled Smoking Status: Former smoker pack-years: 15 Tobacco: How many years used: 30 how long ago did patient quit smoking: smoked 1/2 ppd x 30 years, quit 13 years ago alcohol intake: never substance use type: does not use caffeine: No what type of physical activity do you participate in: none seatbelt use: never do you feel safe at home: Yes ROS ROS ED Review of Systems ROS Unobtainable: other Constitutional Constitutional ED: Reports lethargy; Denies chills, fever(s), sweats or weight loss Eyes Eyes: Denies blurry vision, change in vision or diplopia ENT ENT ED: Reports rhinorrhea and sore throat Cardiovascular Cardiovascular: Reports chest pain and racing heartbeat; Denies orthopnea Respiratory/Chest Respiratory/Chest: Reports cough, dyspnea and dyspnea on exertion; Denies orthopnea or sputum Gastrointestinal Gastrointestinal: Denies abdominal pain, diarrhea, nausea or vomiting Genitourinary Genitourinary ED: Denies dysuria, hematuria or urinary frequency Musculoskeletal Musculoskeletal: Reports myalgias; Denies arthralgias, back pain or neck pain Integumentary Denies abscess, Abrasions or rash Neurologic Neurologic: Reports headache(s); Denies weakness Psychiatric Psychiatric: Denies anxiety, depression or suicidal thoughts Endocrine Endocrinology: Denies polydipsia, polyphagia or polyuria Hematologic/Lymphatic Hematologic/Lymphatic: Denies easy bleeding, easy bruising or lymphadenopathy Allergic/Immunologic Allergic/Immunologic ED: Denies mouth swelling, tongue swelling or urticaria EXAM Physical Exam Const Vital Signs: 11/17/21 09:00 11/17/21 09:08 Temperature 97.2 F L Temperature Source Temporal Pulse Rate 79 Respiratory Rate 14 Respiratory Effort Normal Non-Labored Respiratory Pattern Normal Blood Pressure 103/74 Blood Pressure Mean 83 Pulse Ox 96 Oxygen Delivery Method Room Air Positive well nourished and well developed General Appearance ED: well developed and NAD HEENT Reports TM's clear and moist mucous membranes normocephalic and atraumatic; Negative for trauma or tenderness Tympanic Membrane ED: Yes TM's clear Eyes PERRL and EOMs intact bilaterally General Eye ED: Negative for pale conjunctiva or scleral icterus Neck no lymphadenopathy, supple and no JVD General: Negative for tenderness Chest Wall inspection of chest normal and palpation of chest normal Chest: Negative for tenderness Resp normal respiratory effort and clear to auscultation bilaterally Effort and Inspection: Negative for respiratory distress or pain with movement Auscultation: Negative for rhonchi, wheezes or diminished lung sounds Cardio regular rate, regular rhythm, S1 normal heart sound, S2 normal heart sound and no murmurs Peripheral Pulses: pulses 2+ throughout GI normal to inspection, nondistended, normoactive bowel sounds, soft to palpation, non-tender, non-distended and no masses Back/Spine no CVA tenderness and no thoracic nor lumbar tenderness Extremity normal to inspection General Extremety ED: Negative for edema General Extremity: Negative for edema Neuro oriented x3, CN's II-XII intact bilaterally, no sensory deficits noted and gait normal Sensorium / Orientation: awake, alert, oriented to person, oriented to place and oriented to time Motor Exam: strength 5/5 throughout and strength abnormal Psych mental status grossly normal Skin no rashes or lesions noted and no wounds MDM MDM MDM Narrative Medical decision making narrative: IV line established. Patient was given a liter normal saline fluid bolus. Lab work-up showed a minimally elevated white count of 11.1. Chemistries were unremarkable. Patient will be discharged to home ice and I suspect she likely has a viral syndrome. Her COVID and influenza were negative. Patient advised to push fluids. She is to follow-up with primary care physician in 3 to 5 days. She is to return if increasing shortness of breath or condition worsen anyway. Lab Data Attestation: I reviewed the patient's lab results. Labs: Laboratory Results - last 24 hr 11/17/21 11/17/21 11/17/21 09:28 09:28 10:26 WBC 11.1 H RBC 4.67 Hgb 14.1 Hct 41.9 MCV 89.7 MCH 30.2 MCHC 33.7 RDW Std Deviation 43.8 RDW Coeff of Kely 13.3 Plt Count 282 MPV 10.2 Immature Gran % (Auto) 0.400 Neut % (Auto) 82.7 H Lymph % (Auto) 6.7 L [place] % (Auto) 8.4 Eos % (Auto) 1.3 Baso % (Auto) 0.5 Absolute Neuts (auto) 9.2 H Absolute Lymphs (auto) 0.74 L Nucleated RBC % 0 Sodium 136 Potassium 3.6 Chloride 103 Carbon Dioxide 23.0 Anion Gap 10 BUN 13 Creatinine 0.59 Estim Creat Clear Calc 81.20 Est GFR (MDRD) Af Amer 134 Est GFR (MDRD) Non-Af 111 BUN/Creatinine Ratio 22.0 H Glucose 93 Calcium 9.1 Urine Color Yellow Urine Clarity Clear Urine pH 5.0 Ur Specific Call 1.020 Urine Protein 15 H Urine Glucose (UA) Normal Urine Ketones 150 A* Urine Occult Blood 10 H Urine Nitrite Negative Urine Bilirubin 1 H Urine Urobilinogen 4 H Ur Leukocyte Esterase 100 H Urine RBC 0-5 SEEN Urine WBC 0-5 SEEN Ur Squamous Epith Cells 0-5 SEEN Urine Bacteria RARE Urine Mucus 1+ Discharge Plan Triage Chief Complaint: General Illness ED Provider: Bereket Jenkins Dx/Rx/DC Orders Clinical Impression: Acute viral syndrome Instructions: ED Viral Syndrome (Adult) Prescriptions: No Action levothyroxine 75 mcg tablet 75 mcg PO DAILY dibucaine 1 % ointment 1 applic TOPICAL TID PRN (Reason: Pain/Inflammation) hydrocortisone-pramoxine 2.5-1 % (4g) cream TOPICAL PRN (Reason: Itching) epinephrine 0.3 mg/0.3 mL auto-injector 0.3 mg IM ONCE Rx Instructions: as a single dose albuterol sulfate 90 mcg/actuation HFA aerosol inhaler 2 puff INHALATION Q6H PRN (Reason: asthma) sumatriptan succinate 100 mg tablet See Rx Instructions PO .COMPLEX Rx Instructions: take 1 tab at onset of headache; if no relief may repeat 1 tab in 2hr; max = 2 tabs/24 hrs PO diazepam 5 mg tablet 5 mg PO TID PRN (Reason: Anxiety) pregabalin 150 mg capsule 150 mg PO BID hydrocodone-acetaminophen 5-325 mg tablet 1 tablet PO PRN promethazine 25 mg tablet PO PRN (Reason: nausea and vomiting) cholecalciferol (vitamin D3) 50 mcg (2,000 unit) capsule 1,000 unit PO DAILY atorvastatin 40 mg tablet 40 mg PO DAILY Dima Aerosphere 160-9-4.8 mcg/actuation HFA aerosol inhaler 2 inh inhalation BID pantoprazole 40 mg tablet,delayed release (DR/EC) 40 mg PO BID Label Comments: TAKE ONE TABLET BY MOUTH EVERY DAY ON an empty stomach 1/2 hour beforebreakfast aspirin 81 MG tablet,chewable 81 mg PO DAILY@0800 loratadine 10 MG capsule 5 mg PO PRN PRN (Reason: Allergies) kxfksllu-nfjxspfkm-YF 3.5-10,000-1 mg/mL-unit/mL-% drops,suspension 4 drp LEFT EAR TID Qty: 10 0RF Rx Instructions: 5-7 days or until better metoclopramide HCl [Reglan] 10 mg tablet 10 mg PO Q6H PRN (Reason: nausea and vomiting) Qty: 14 0RF dicyclomine 10 MG capsule 20 mg PO Q6H PRN PRN (Reason: abdominal discomfort) Qty: 20 0RF Primary Care Provider: Brian Baez Chi Referrals: Brian Baez Chi, MD [Primary Care Provider] - 3-5 Days Disposition Disposition: Home, Self Care
[2021-11-17] MEDS: 0.9% Normal Saline 1,000 ML 1000 ML IV (09:30)
[2021-11-17] MEDS: Ketorolac 15 MG/ML Vial IV (09:30)
[2021-11-17 09:40] LABS: Absolute Lymphocyte Count 0.74 X10^3/uL (0.83-4.51); Absolute Neutrophil Count 9.2 X10^3/uL (2.0-7.7); Basophil# 0.05 X10^3/uL; Basophil% 0.5 % (0-1); Eosinophil# 0.14 X10^3/uL; Eosinophils% 1.3 % (0-5); Hematocrit 41.9 % (37-47); Hemoglobin 14.1 g/dL (12.0-15.0); Lymphocyte # 0.74 X10^3/ul (0.83-4.51); Lymphocyte % 6.7 % (19-41); Mean Corp Hgb Conc 33.7 g/dL (32-36); Mean Corpuscular Hgb 30.2 pg (27.0-32.0); Mean Corpuscular Volume 89.7 fL (81-99); Mean Platelet Vol. 10.2 fl (6.2-12.0); Monocyte# 0.93 X10^3/uL; Monocyte% 8.4 % (0-10); NRBC Flagged by Analyzer 0 % (0-5); Neutrophil # 9.18 X10^3/uL (2.7-7.7); Neutrophil % 82.7 % (47-70); Platelet Count 282 K/mm3 (150-450); RBC Distribution Width CV 13.3 % (11.6-14.6); RBC Distribution Width SD 43.8 fl (35.1-43.9); Red Blood Count 4.67 M/mm3 (4.2-5.4); White Blood Count 11.1 K/mm3 (4.4-11.0)
[2021-11-17 09:54] LABS: Anion Gap 10 (5-15); BUN 13 mg/dL (7-18); Calcium,Total 9.1 mg/dL (8.5-10.1); Chloride 103 mmol/L (98-107); Creatinine, Serum 0.59 mg/dL (0.55-1.02); EST Glomerular Filtration Rate 111 mL/min (>60); Est Glom Filt Rate - Afr Amer 134 mL/min (>60); Glucose 93 mg/dL (74-106); Potassium 3.6 mmol/L (3.5-5.1); Sodium Level 136 mmol/L (136-145)
[2021-11-17 10:32] LABS: Color, Urine Yellow (Yellow); Glucose, Dipstick Normal (Normal); Leukocyte Esterase-Dipstick 100 /ul (Negative); Nitrite-Dipstick Negative (Negative); Occult Blood-Urine 10 /ul (Negative); Protein-Dipstick 15 mg/dl (Negative); Urine Clarity Clear (Clear); Urine Urobilinogen 4 mg/dl (Normal)
[2021-11-17 10:35] LABS: Ketone-Dipstick 150 mg/dl (Negative); Urine Bilirubin Dipstick 1 mg/dL (Negative)
[2021-11-17 10:39] LABS: Bacteria RARE /hpf (None Seen); Mucous, Urine 1+ /hpf (<or=2+); Red Blood Cells-Urine 0-5 SEEN /hpf (0-5); Squamous Epithelial Cells - UA 0-5 SEEN /hpf (5-10); White Blood Cells 0-5 SEEN /hpf (0-5)
[2021-11-17 10:48] VITALS: PULSE 68; O2SAT 94
== END 2021-11-17 10:48 | disposition home or self-care (01) ==
PROVIDERS: Emergency Provider Emergency Medicine; PCP Family Medicine Geriatric Medicine; Visit Provider Emergency Medicine
DX: B34.9 Viral infection, unspecified (principal); J44.9 Chronic obstructive pulmonary disease, unspecified; H92.02 Otalgia, left ear; Z20.822 Contact with and (suspected) exposure to COVID-19; M54.50 Low back pain, unspecified; J45.909 Unspecified asthma, uncomplicated; E03.9 Hypothyroidism, unspecified; K21.9 Gastro-esophageal reflux disease without esophagitis; G47.33 Obstructive sleep apnea (adult) (pediatric); Z79.82 Long term (current) use of aspirin; Z79.890 Hormone replacement therapy; Z79.899 Other long term (current) drug therapy; Z87.891 Personal history of nicotine dependence
CPT/HCPCS: 80048; 81001; 85025; 87428; 96361; 96374; 99283

== ENCOUNTER → 2021-12-10 | Outpatient (CLI) | payer MEDICARE, MEDICAID, SELFPAY ==
[2021-12-10 12:02] LABS: Absolute Lymphocyte Count 0.92 X10^3/uL (0.83-4.51); Absolute Neutrophil Count 3.5 X10^3/uL (2.0-7.7); Basophil# 0.03 X10^3/uL; Basophil% 0.6 % (0-1); Eosinophil# 0.27 X10^3/uL; Eosinophils% 5.1 % (0-5); Hematocrit 40.9 % (37-47); Hemoglobin 13.6 g/dL (12.0-15.0); Lymphocyte # 0.92 X10^3/ul (0.83-4.51); Lymphocyte % 17.4 % (19-41); Mean Corp Hgb Conc 33.3 g/dL (32-36); Mean Corpuscular Hgb 30.5 pg (27.0-32.0); Mean Corpuscular Volume 91.7 fL (81-99); Mean Platelet Vol. 10.1 fl (6.2-12.0); Monocyte# 0.58 X10^3/uL; Monocyte% 10.9 % (0-10); NRBC Flagged by Analyzer 0 % (0-5); Neutrophil # 3.49 X10^3/uL (2.7-7.7); Neutrophil % 65.8 % (47-70); Platelet Count 307 K/mm3 (150-450); RBC Distribution Width SD 47.2 fl (35.1-43.9); Red Blood Count 4.46 M/mm3 (4.2-5.4); White Blood Count 5.3 K/mm3 (4.4-11.0)
[2021-12-10 12:43] LABS: ALB/GLOB Ratio 1.2 RATIO (0.9-2.4); AST(SGOT) 64 U/L (15-37); Alanine Aminotransfer ALT/SGPT 117 U/L (13-56); Albumin, Serum 3.8 g/dL (3.2-5.0); Alkaline Phosphatase 146 U/L (45-117); Anion Gap 6 (5-15); BUN 16 mg/dL (7-18); BUN/Creat Ratio 22.8 RATIO (10-20); Calcium,Total 9.2 mg/dL (8.5-10.1); Chloride 106 mmol/L (98-107); EST Glomerular Filtration Rate 91 mL/min (>60); Est Glom Filt Rate - Afr Amer 110 mL/min (>60); Globulin 3.3 g/dL (2.2-4.2); Glucose 101 mg/dL (74-106); Potassium 4.4 mmol/L (3.5-5.1); Protein, Total 7.1 g/dL (6.4-8.2); Sodium Level 139 mmol/L (136-145); Thyroid Stim Hormone (TSH) 1.82 uIU/mL (0.358-3.74)
[2021-12-10 13:05] LABS: Vitamin D,25 Hydroxy 66.8 ng/mL
== END | disposition home or self-care (01) ==
LOC: POLAB3 10:14
PROVIDERS: PCP Family Medicine Geriatric Medicine; Visit Provider Family Medicine Geriatric Medicine
DX: I10 Essential (primary) hypertension (principal); E55.9 Vitamin D deficiency, unspecified
CPT/HCPCS: 36415; 80053; 82306; 84443; 85025

== ENCOUNTER → 2021-12-23 | Outpatient (CLI) | payer MEDICARE, MEDICAID, SELFPAY ==
--- NOTE | 2021-12-23 07:24 | US_ITS ---
STUDY: ABDOMINAL ULTRASOUND - RIGHT UPPER QUADRANT REASON FOR VISIT: Female, 61 years old ABNORMAL LIVER ENZYMES TECHNIQUE: Ultrasound evaluation of the right upper quadrant was performed with real-time and static moran-scale imaging. TECHNICAL QUALITY: Adequate. COMPARISON: None. FINDINGS: Liver: The liver measures 14.9 cm. There is increased echogenicity consistent with fatty infiltration. The bile ducts are within normal limits. There is hepatic color flow. The direction of portal flow is hepatopetal. There is no demonstrated mass lesion. Gallbladder: The patient is status post cholecystectomy. Common Bile Duct (C.B.D.): The common bile duct measures 4 mm. Pancreas: Normal size of the head, body and tail of the pancreas. There is normal echogenicity of the pancreas. There is no demonstrated pancreatic mass or cyst. Right Kidney: Normal size of the right kidney. The right kidney measures 10 cm x 4.7 cm x 4.8 cm. Normal renal cortex. The right cortex measures 1.8 cm. There is no demonstrated renal mass or cyst. There is no right hydronephrosis. US/Abdomen Limited IMPRESSION: Status post cholecystectomy. Fatty infiltration of the liver. Electronically Signed: Basilio Colindres MD at 15:41 EDT ,
[2021-12-23 09:16] LABS: Hepatitis B Surface Antibody Non-Reactive
[2021-12-24 05:07] LABS: HEPATITIS B SURFACE AG Negative (Negative); Hep C Antibodies 0.2 s/co ratio (0.0-0.9); Hepatitis A IgM Antibody Negative (Negative); Hepatitis B Core AB IgM Negative (Negative)
[2021-12-24 17:03] LABS: Hepatitis A AB, Total Negative (Negative)
== END | disposition home or self-care (01) ==
LOC: US 07:22
PROVIDERS: PCP Family Medicine Geriatric Medicine; Referring Provider Family Medicine Geriatric Medicine; Visit Provider Family Medicine Geriatric Medicine
DX: R74.8 Abnormal levels of other serum enzymes (principal)
CPT/HCPCS: 36415; 76705; 80074; 86706; 86708

== ENCOUNTER → 2022-01-02 | Outpatient (CLI) | payer MEDICARE, MEDICAID, SELFPAY ==
--- NOTE | 2022-01-02 09:21 | US_ITS ---
STUDY: ABDOMINAL ULTRASOUND - ELASTOGRAPHY REASON FOR VISIT: Female, 61 years old. Fatty infiltration of the liver. TECHNIQUE: Liver stiffness measurements were obtained on a [employer] RS 85 ultrasound machine using a CA 1-7 probe following the SRU guidelines. 3 measurements were obtained using a 2-D-SWE method. The IQR/M was 23% suggesting a quality data set. TECHNICAL QUALITY: Adequate. COMPARISON: Comparison is made with prior study dated 12/23/2021. FINDINGS: Liver: Fatty infiltration of the liver. Median liver stiffness measured 5.6 kPa. US/Elastography Parenchyma/Organ IMPRESSION: Liver stiffness measures 5.6 kPa compatible with F0-F1 (Normal to mild liver fibrosis) Metavir score. Electronically Signed: Basilio Colindres MD at 10:20 EDT ,
== END | disposition home or self-care (01) ==
LOC: US 09:19
PROVIDERS: PCP Family Medicine Geriatric Medicine; Referring Provider Family Medicine Geriatric Medicine; Visit Provider Family Medicine Geriatric Medicine
DX: K76.0 Fatty (change of) liver, not elsewhere classified (principal)
CPT/HCPCS: 76981

== ENCOUNTER → 2022-03-10 | Outpatient (CLI) | payer MEDICARE, MEDICAID, SELFPAY ==
[2022-03-10 12:43] LABS: Absolute Lymphocyte Count 0.92 X10^3/uL (0.83-4.51); Absolute Neutrophil Count 3.1 X10^3/uL (2.0-7.7); Basophil# 0.06 X10^3/uL; Basophil% 1.2 % (0-1); Eosinophil# 0.43 X10^3/uL; Eosinophils% 8.5 % (0-5); Hematocrit 41.2 % (37-47); Hemoglobin 13.3 g/dL (12.0-15.0); Lymphocyte # 0.92 X10^3/ul (0.83-4.51); Lymphocyte % 18.1 % (19-41); Mean Corp Hgb Conc 32.3 g/dL (32-36); Mean Corpuscular Volume 89.8 fL (81-99); Mean Platelet Vol. 10.4 fl (6.2-12.0); Monocyte# 0.53 X10^3/uL; Monocyte% 10.5 % (0-10); NRBC Flagged by Analyzer 0 % (0-5); Neutrophil # 3.11 X10^3/uL (2.7-7.7); Neutrophil % 61.3 % (47-70); Platelet Count 391 K/mm3 (150-450); RBC Distribution Width CV 13.2 % (11.6-14.6); RBC Distribution Width SD 43.1 fl (35.1-43.9); Red Blood Count 4.59 M/mm3 (4.2-5.4); White Blood Count 5.1 K/mm3 (4.4-11.0)
[2022-03-10 14:07] LABS: ALB/GLOB Ratio 1.1 RATIO (0.9-2.4); AST(SGOT) 12 U/L (15-37); Alanine Aminotransfer ALT/SGPT 19 U/L (13-56); Albumin, Serum 3.9 g/dL (3.2-5.0); Alkaline Phosphatase 121 U/L (45-117); Anion Gap 7 (5-15); BUN 13 mg/dL (7-18); BUN/Creat Ratio 17.5 RATIO (10-20); Calcium,Total 9.2 mg/dL (8.5-10.1); Chloride 102 mmol/L (98-107); Creatinine, Serum 0.74 mg/dL (0.55-1.02); EST Glomerular Filtration Rate 85 mL/min (>60); Est Glom Filt Rate - Afr Amer 103 mL/min (>60); Globulin 3.5 g/dL (2.2-4.2); Glucose 93 mg/dL (74-106); Potassium 3.8 mmol/L (3.5-5.1); Protein, Total 7.4 g/dL (6.4-8.2); Sodium Level 136 mmol/L (136-145); Thyroid Stim Hormone (TSH) 1.55 uIU/mL (0.358-3.74)
== END | disposition home or self-care (01) ==
LOC: POLAB3 09:35
PROVIDERS: PCP Family Medicine Geriatric Medicine; Visit Provider Family Medicine Geriatric Medicine
DX: E55.9 Vitamin D deficiency, unspecified (principal); I10 Essential (primary) hypertension
CPT/HCPCS: 36415; 80053; 82306; 84443; 85025

== ENCOUNTER → 2022-04-21 | Outpatient (CLI) | payer MEDICARE, MEDICAID, SELFPAY ==
--- NOTE | 2022-04-21 15:01 | CT_ITS ---
STUDY: CT ABDOMEN AND PELVIS WITH CONTRAST REASON FOR EXAM: Female, 61 years old. Abd pain, right upper quadrant lump RADIATION DOSAGE (If Supplied By Facility): CTDIvol = ( 19.57 ) mGy, DLP = ( 1262.91 ) mGycm TECHNIQUE: Transaxial images were obtained from the dome of the diaphragm to the symphysis pubis without oral contrast. Oral and amp; IV Readi-CAT and amp; 100mL Isovue-370 was administered. Sagittal and coronal images were reconstructed. Individualized dose optimization techniques were used for this CT. COMPARISON: None. FINDINGS: The visualized lung bases are unremarkable. Pericardial thickening redemonstrated. Normal liver. There are surgical clips in the gallbladder fossa consistent with a prior cholecystectomy. There is moderate splenomegaly. Normal pancreas. Normal bilateral adrenal glands. Normal right kidney. Normal left kidney. Normal visualized stomach. Normal small intestine. Normal colon. The appendix is visualized and appears normal. Normal abdominal aorta. Normal inferior vena cava. Left iliac vein stent redemonstrated. Normal retroperitoneum. Normal urinary bladder. There is absence of the uterus consistent with a prior hysterectomy. Right supraorbital fat-containing hernia. Interval lower lumbar instrumented fusion. CT/Abdomen/Pelvis WITH Contrast IMPRESSION: Right upper ventral fat-containing hernia. No acute abnormal finding the abdomen or pelvis. Electronically Signed: Perico Barfield MD at 21:55 EST ,
== END | disposition home or self-care (01) ==
LOC: CT 14:59
PROVIDERS: PCP Family Medicine Geriatric Medicine; Referring Provider Surgery; Visit Provider Surgery
DX: R10.9 Unspecified abdominal pain (principal)
CPT/HCPCS: 74177; Q9967

== ENCOUNTER 2022-05-05 07:09 | Day surgery (SDC) | payer MEDICARE, MEDICAID, SELFPAY ==
--- NOTE | 2022-05-01 12:02 | EKG12_ITS ---
Test Reason : PREOP Blood Pressure : / mmHG Vent. Rate : 059 BPM Atrial Rate : 059 BPM P-R Int : 142 ms QRS Dur : 080 ms QT Int : 426 ms P-R-T Axes : -14 -01 016 degrees QTc Int : 421 ms Sinus bradycardia Otherwise normal ECG Confirmed by CARMEN POLO, OSMIN ([id number]), magazine editor MUNA REYNA ([id number]) on 05/02/2022 10:37:20 AM Referred By: Taco Treadwell Confirmed By:DYLON MORALES MD
[2022-05-01 13:05] LABS: International Normalized Ratio 1.1; Prothrombin Time (Protime)PT. 13.4 SECONDS (11.7-14.9)
[2022-05-01 13:06] LABS: Partial Thromboplast Time 28.2 Seconds (24.1-36.2)
[2022-05-05] VITALS (8 sets, daily range): BP systolic 110–133; BP diastolic 67–94; PULSE 68–84; RESP 16–18; TEMP 36.1–36.6; O2SAT 88–97; BMI 38.6
[2022-05-05] MEDS: Lactated Ringers 1,000 ML 15 ML IV (07:57)
--- NOTE | 2022-05-05 08:09 | PCM.HP.BLA ---
History and Physical Date of Admission: 05/05/22 Intake Intake Visit Reasons:?CAT SCAN 04/21 FOR HERNIA Chief Complaint: discuss Hernia surgery Clinical Care Manager Required: No Allergies prednisone Allergy (Severe, Verified 04/23/22 08:31) Angioedemalatex Allergy (Mild, Verified 04/23/22 08:31) Hives, Itchingcherry Allergy (Unknown, Verified 04/23/22 08:31) Unknownhouse dust Allergy (Unknown, Verified 04/23/22 08:31) Unknownciprofloxacin Allergy (Verified 04/23/22 08:31) breathing issuesEnvironmental Allergies: Uncoded [metal] Allergy (Verified 04/23/22 08:31) NEEDS FOLLOW-UPgabapentin Allergy (Verified 04/23/22 08:31) Angioedemainsect venom [insects] Allergy (Verified 04/23/22 08:31) NEEDS FOLLOW-UPmorphine Allergy (Verified 04/23/22 08:31) Unknownpollen extracts [pollens] Allergy (Verified 04/23/22 08:31) NEEDS FOLLOW-UP Medications albuterol sulfate 90 mcg/actuation aerosol inhaler 2 puff inhalation Q6H PRN asthma 06/02/19 [History Confirmed 04/23/22] diazepam 5 mg tablet 5 mg PO TID PRN Anxiety 06/02/19 [History Confirmed 04/23/22] dibucaine 1 % topical ointment 1 applic topical TID PRN Pain/Inflammation 06/02/19 [History Confirmed 04/23/22] epinephrine 0.3 mg/0.3 mL injection, auto-injector 0.3 mg IM ONCE 06/02/19 [History Confirmed 04/23/22] hydrocortisone-pramoxine 2.5 %-1 % (4g) rectal cream applic topical PRN Itching 06/02/19 [History Confirmed 04/23/22] levothyroxine 75 mcg tablet 75 mcg PO DAILY 06/02/19 [History Confirmed 04/23/22] sumatriptan succinate 100 mg tablet See Rx Instructions PO .COMPLEX 06/02/19 [History Confirmed 04/23/22] aspirin 81 mg chewable tablet 81 mg PO DAILY@0800 06/15/20 [History Confirmed 04/23/22] loratadine 10 mg capsule 5 mg PO PRN PRN Allergies 06/15/20 [History Confirmed 04/23/22] hydrocodone-acetaminophen 5-325mg 5mg-325mg 1 tablet PO PRN 09/07/20 [History Confirmed 04/23/22] pregabalin 150 mg capsule 150 mg PO BID 09/07/20 [History Confirmed 04/23/22] atorvastatin 40 mg tablet 40 mg PO DAILY 07/22/21 [History Confirmed 04/23/22] budesonide 160 mcg-glycopyr 9 mcg-formot 4.8 mcg/actuation HFA inhaler (Breztri Aerosphere) 2 inh inhalation BID 07/22/21 [History Confirmed 04/23/22] cholecalciferol (vitamin D3) 50 mcg (2,000 unit) capsule 1,000 unit PO DAILY 07/22/21 [History Confirmed 04/23/22] promethazine 25 mg tablet mg PO PRN nausea and vomiting 07/22/21 [History Confirmed 04/23/22] dicyclomine 10 mg capsule 20 mg PO Q6H PRN PRN abdominal discomfort #20 CAPSULES 07/29/21 [Rx Confirmed 04/23/22] metoclopramide HCl 10 mg tablet (Reglan) 10 mg PO Q6H PRN nausea and vomiting #14 tabs 07/29/21 [Rx Confirmed 04/23/22] nbqrkpbi-ttlxvcnet-kxyzewddp 3.5 mg-10,000 unit/mL-1 % ear drops,susp 4 drp LEFT EAR TID #10 mL 07/29/21 [Rx Confirmed 04/23/22] pantoprazole 40 mg tablet,delayed release 40 mg PO BID 11/13/21 [History Confirmed 04/23/22] PFSH Medical History? Arthritis Asthma Back problem Bone fracture breast cyst removal Breast lump Carpal tunnel syndrome Chronic bronchitis Chronic headaches COPD (chronic obstructive pulmonary disease) GERD (gastroesophageal reflux disease) Hives Hypothyroidism Hypothyroidism (acquired) IBS (irritable bowel syndrome) Multiple lung nodules Neuropathy BASILIO on CPAP Osteoporosis r thumb surgery Recurrent infections Rheumatoid arthritis Surgical History? H/O colonoscopy H/O hemorrhoidectomy H/O oral surgery H/O: History of carpal tunnel release History of esophagogastroduodenoscopy (EGD) History of tonsillectomy History of total abdominal hysterectomy S/P insertion of iliac artery stent Family History? Father Bowel disease Heart disease Respiratory disease Severe allergyMother Thyroid disorderSister Thyroid disorderBrother Prostate cancer Social History? household members:? none housing:? house current occupational status:? unemployed and disabled Smoking Status:? Former smoker pack-years: 15 Tobacco: How many years used:? 30 how long ago did patient quit smoking:? smoked 1/2 ppd x 30 years, quit 13 years ago alcohol intake:? never substance use type:? does not use caffeine:? No what type of physical activity do you participate in:? none seatbelt use:? never do you feel safe at home:? Yes HPI HPI HPI: 61-year-old for male here for ventral hernia.? Patient was seen last week and a CT scan was ordered for this ventral hernia.? Patient still uncomfortable from it. ROS General General: No weight change or fatigue HEENT HEENT: No difficulty swallowing Endo Endocrine: No thyroid disease Musc Musculoskeletal: No back problems or arthritis Cardio Cardiovascular: No pacemaker, heart disease, atrial fibrillation, high blood pressure, heart attack, heart stent, palpitations or chest pain Psych Psychiatric: No depression or anxiety Resp Respiratory: No shortness of breath, No cough, No COPD, No asthma and No emphysema Gastro Gastrointestinal: Yes abdominal pain, No nausea or vomiting, No diarrhea, No constipation, No blood in stool, No acid reflux, No hemorrhoids, No ulcers, No gallbladder problem and No black,tarry stools Yefri Hematologic: No blood thinners Exam Const General: cooperative Orientation: alert and oriented x3 HENMT Head: normal to inspection Neck Neck: normal visual inspection and full ROM Chest Chest palpation & inspection: normal inspection of the chest Resp Effort & Inspection: normal respiratory effort Auscultation: clear to auscultation bilaterally Cardio Rate: regular rate Rhythm: regular rhythm GI Inspection: non-distended Palpation: soft, hernia ventral and nontender Skin General: no rashes or lesions noted Neuro General: patient alert and patient oriented x3 Extrem General: full ROM Psych Appearance: grossly normal Mental Status: mental status grossly normal Assessment and Plan Assessment and Plan (1) Ventral hernia: ?Status:?Acute ?Qualifiers: ?Obstruction and gangrene presence:?without obstruction or gangrene? Qualified Code(s):?K43.9 - Ventral hernia without obstruction or gangrene ?Plan: I reviewed the pain is CAT scan with her.? She has a fat-containing ventral hernia and a prior port site from her cholecystectomy in the upper abdomen.? The defect appears to be only 1 cm in diameter.? I discussed repairing this without mesh as the patient is very concerned and would not like mesh placed.? I believe this is reasonable as the defect is very small.? I discussed the risks of bleeding and infection with her and she understands.? She does understand there is an increased risk of recurrence without mesh but she is willing to proceed. Taco Treadwell MD Pager: [phone] [address] [place] [address], [address] [place] [phone] Office: I have examined the patient and the H&P has been reviewed. There are no clinical changes since date of exam.
[2022-05-05] MEDS: Cefazolin 2 GM in 0.9% Normal Saline 100 ML IV (08:21)
[2022-05-05] MEDS: Bupivacaine 0.25%-Epi/Pf 1:200,000 10 ML (08:39)
--- NOTE | 2022-05-05 08:56 | PCM.OPRPT ---
Problems Associated Problem List Diagnoses (1) Ventral hernia: Report of Operation Date of Procedure: 05/05/22 Pre-Operative Diagnosis: Ventral hernia Post-Operative Diagnosis: Ventral hernia Surgery/Procedure Performed:: Ventral hernia repair Description of Procedure: Patient was brought back to the operating room and general anesthesia was induced. The abdomen was prepped and draped in usual sterile fashion ultrasound was used to localize the hernia and marked incision over it. Incision marking was injected with local anesthetic and then an incision was made with a scalpel. It was deepened to the hernia contents. The hernia contents were dissected free from the surrounding fat and then reduced. The fascia was cauterized to induce inflammation and make sure that there were no adhesions. Next the fascia was closed with interrupted 0 Nurolon sutures the cavity was then irrigated and suctioned dry and the skin was closed with interrupted 3-0 Vicryl. Steri-Strips and bandages were applied. Patient was taken to PACU stable condition tolerated procedure well. The hernia defect was approximately 1 cm in length. Admit VTE Documentation VTE Mechan Device Prophylaxis: SCD's
--- NOTE | 2022-05-05 08:58 | DCINST_ITS ---
Discharge Instructions Procedure Hernia Diet Discharge Diet: Light diet - advance as tolerated Activity Discharge Activity: May Not Drive (for 2-3 days or while taking narcotic pain meds.) and May Shower (with the bandage in place 1-2 days after surgery.) Lifting Restrictions: 20 pounds for 4 weeks. Additional Activity Instructions:: Climbing stairs is fine, walking is encouraged. Sitting in bed may be uncomfortable. Sitting up using your lateral muscles (sitting up sideways) is usually more comfortable. Do not drive, work heavy equipment of sign legal documents for 24 hours. Pain medications may cause nausea, you should typically eat light foods as you take your pain medications. Pain medications may also cause constipation. If you have difficulty with this, discuss with your doctor. Ibuprofen and Tylenol for pain. Oxycodone for breakthrough. Dressing / Incision Call your doctor if your incision/area has: Continuous Slow Oozing, Sudden Increased Bleeding, Increased Pain/ Swelling, Increased Redness and Foul Smelling Discharge Call your doctor if you observe: Fever of 101 or Higher Suture Line Care: Avoid Pulling/Pushing and Avoid Pinching/Bending Remove Dressing in: 2 days (Remove clear bandages in 2 days, remove Steri-Strips in 7 to 10 days.) Cleanse incision/area with: Soap & Water Follow Up Care Please Follow Up With: Taco Treadwell MD When: Please call to schedule 2 week follow up appointment. [phone] Test Results: Test results from this visit will be discussed in further detail at your follow- up appointment, if applicable. Discharge Plan Admission Attending Provider: Taco Treadewll Primary Care Provider: Brian Baez Chi Instructions Additional Instructions / Restrictions: Resume aspirin tomorrow Discharge Orders/Prescriptions Prescriptions: New oxycodone 5 mg tablet 5 - 10 mg PO Q6H PRN (Reason: pain) 5 Days Qty: 15 0RF No Action levothyroxine 75 mcg tablet 75 mcg PO DAILY dibucaine 1 % ointment 1 applic TOPICAL TID PRN (Reason: Pain/Inflammation) hydrocortisone-pramoxine 2.5-1 % (4g) cream 1 applic TOPICAL PRN PRN (Reason: Itching) epinephrine 0.3 mg/0.3 mL auto-injector 0.3 mg IM ONCE Rx Instructions: as a single dose albuterol sulfate 90 mcg/actuation HFA aerosol inhaler 2 puff INHALATION Q6H PRN (Reason: asthma) sumatriptan succinate 100 mg tablet See Rx Instructions PO .COMPLEX Rx Instructions: take 1 tab at onset of headache; if no relief may repeat 1 tab in 2hr; max = 2 tabs/24 hrs PO diazepam 5 mg tablet 5 mg PO TID PRN (Reason: Anxiety) pregabalin 150 mg capsule 150 mg PO BID hydrocodone-acetaminophen 5-325 mg tablet 1 tablet PO PRN PRN (Reason: Pain) promethazine 25 mg tablet 25 mg PO PRN PRN (Reason: nausea and vomiting) cholecalciferol (vitamin D3) 50 mcg (2,000 unit) capsule 1,000 unit PO DAILY atorvastatin 40 mg tablet 40 mg PO DAILY Breztri Aerosphere 160-9-4.8 mcg/actuation HFA aerosol inhaler 2 inh inhalation BID pantoprazole 40 mg tablet,delayed release (DR/EC) 40 mg PO BID Label Comments: TAKE ONE TABLET BY MOUTH EVERY DAY ON an empty stomach 1/2 hour b eforebreakfast aspirin 81 MG tablet,chewable 81 mg PO DAILY@0800 loratadine 10 MG capsule 5 mg PO PRN PRN (Reason: Allergies) metoclopramide HCl [Reglan] 10 mg tablet 10 mg PO Q6H PRN (Reason: nausea and vomiting) Qty: 14 0RF dicyclomine 10 MG capsule 20 mg PO Q6H PRN PRN (Reason: abdominal discomfort) Qty: 20 0RF midodrine 10 mg Tablet 10 mg PO TID Rx Instructions: do not give last dose of day after 6PM or within 4 hrs of bedtime Referrals / Follow Up: Brian Baez Chi, MD [Primary Care Provider] - Disposition Disposition (needs filled in before D/C Order can be placed): Home, Self Care
[2022-05-05] MEDS: Ipratropium/Albuterol Sulfate 3 ML AMPUL.NEB INHALATION (09:26)
== END 2022-05-05 11:05 | disposition home or self-care (01) ==
LOC: SDC 07:10 → AC 07:10
PROVIDERS: Anesthesiology; PCP Family Medicine Geriatric Medicine; Referring Provider Surgery; Visit Provider Surgery
PROC: (CPT 49560; principal; 2022-05-05 08:30)
DX: K43.9 Ventral hernia without obstruction or gangrene (principal); M06.9 Rheumatoid arthritis, unspecified; J44.9 Chronic obstructive pulmonary disease, unspecified; E03.9 Hypothyroidism, unspecified; G47.33 Obstructive sleep apnea (adult) (pediatric); Z79.82 Long term (current) use of aspirin; Z79.890 Hormone replacement therapy; Z79.899 Other long term (current) drug therapy; Z87.891 Personal history of nicotine dependence
CPT/HCPCS: 49560; 36415; 85610; 85730; 93005; 94640; J7120

== ENCOUNTER → 2022-05-21 | Outpatient (CLI) | payer MEDICARE, MEDICAID, SELFPAY ==
--- NOTE | 2022-05-21 10:28 | CT_ITS ---
HISTORY: Follow-up lung nodules. TECHNIQUE: CT of the chest was performed after the intravenous administration of 100 mL Isovue-370. Coronal and sagittal reformatted images. Individualized dose optimization techniques were used for this CT. 901 images. COMPARISON: 11/06/2021, 07/16/2021. FINDINGS: CENTRAL AIRWAYS: Patent. LUNGS: Noncalcified nodules again seen. Small subpleural blebs in the lung apices. 4 mm and 6 mm pleural-based left upper lobe nodules images 23 and 27/129. Stable 5 mm left upper lobe nodule image 45/129. Stable 2 mm left upper lobe nodule image 39. Unchanged 5 mm left lower lobe nodule image 50. Stable 3 mm right upper lobe nodules posteriorly on image 27. Stable 6 mm and 10 mm right lower lobe nodules adjacent to the major fissure. PLEURA: No pneumothorax or significant pleural effusion. HEART/PERICARDIUM: Heart within normal limits in size. Mild pericardial effusion. AORTA/VESSELS: No thoracic aortic aneurysm or dissection flap. No large central filling defect identified in the pulmonary arteries. MEDIASTINUM/SUNDEEP: No pathologically enlarged lymph nodes. OSSEOUS STRUCTURES: Intact. UPPER ABDOMEN: Cholecystectomy. Incompletely imaged fat-containing ventral hernia. Chronic elevation of the right hemidiaphragm. CT/Chest WITH Contrast IMPRESSION: No significant interval change in size of bilateral pulmonary nodules since 07/2021. Fleischner Society Guidelines for low-risk patients consider a follow-up chest CT at 15-21 months. For high-risk patients (smoking history or other known risk factors) recommend follow-up chest CT at 15-21 months. If unchanged, no further follow-up. Chronic mild pericardial effusion. Electronically Signed: Kiersten Black MD at 12:23 EST ,
[2022-05-21 11:00] LABS: CREATININE FINGERSTICK < 0.9 mg/dL (0.55-1.02); EGFR FINGERSTICK > 60.0000 mL/min (>60)
== END | disposition home or self-care (01) ==
LOC: CT 10:27
PROVIDERS: PCP Family Medicine Geriatric Medicine; Referring Provider Internal Medicine Hematology & Oncology; Visit Provider Internal Medicine Hematology & Oncology
DX: R91.8 Other nonspecific abnormal finding of lung field (principal)
CPT/HCPCS: 71260; Q9967; A4216

== ENCOUNTER → 2022-06-09 | Outpatient (CLI) | payer MEDICARE, MEDICAID, SELFPAY ==
[2022-06-09 13:56] VITALS: BP 88/63; PULSE 62; RESP 16; TEMP 35.7; BMI 37.2
[2022-06-09] MEDS: 0.9% NaCl Peripheral Flush Adult/Peds IV (13:56)
[2022-06-09] MEDS: Zoledronic Acid 5 MG 100 ML 300 MG IV (13:56)
[2022-06-09 14:22] VITALS: BP 109/67; PULSE 55; RESP 16; TEMP 36.1
== END | disposition home or self-care (01) ==
LOC: MEDOUTP 13:36
PROVIDERS: PCP Family Medicine Geriatric Medicine; Referring Provider Internal Medicine Endocrinology, Diabetes & Metabolism; Visit Provider Internal Medicine Endocrinology, Diabetes & Metabolism
DX: M81.0 Age-related osteoporosis without current pathological fracture (principal)
CPT/HCPCS: 96365; A4216; J3489

== ENCOUNTER → 2022-06-18 | Outpatient (CLI) | payer MEDICARE, MEDICAID, SELFPAY ==
[2022-06-18 17:50] LABS: Absolute Lymphocyte Count 0.84 X10^3/uL (0.83-4.51); Absolute Neutrophil Count 2.9 X10^3/uL (2.0-7.7); Basophil# 0.04 X10^3/uL; Basophil% 0.9 % (0-1); Eosinophil# 0.25 X10^3/uL; Eosinophils% 5.5 % (0-5); Hematocrit 39.4 % (37-47); Hemoglobin 13.3 g/dL (12.0-15.0); Lymphocyte # 0.84 X10^3/ul (0.83-4.51); Lymphocyte % 18.4 % (19-41); Mean Corp Hgb Conc 33.8 g/dL (32-36); Mean Corpuscular Hgb 29.8 pg (27.0-32.0); Mean Corpuscular Volume 88.1 fL (81-99); Mean Platelet Vol. 10.3 fl (6.2-12.0); Monocyte# 0.52 X10^3/uL; Monocyte% 11.4 % (0-10); NRBC Flagged by Analyzer 0 % (0-5); Neutrophil # 2.91 X10^3/uL (2.7-7.7); Neutrophil % 63.6 % (47-70); Platelet Count 298 K/mm3 (150-450); RBC Distribution Width CV 13.9 % (11.6-14.6); RBC Distribution Width SD 44.7 fl (35.1-43.9); Red Blood Count 4.47 M/mm3 (4.2-5.4); White Blood Count 4.6 K/mm3 (4.4-11.0)
[2022-06-18 18:20] LABS: Vitamin D,25 Hydroxy 58.3 ng/mL
[2022-06-18 18:23] LABS: ALB/GLOB Ratio 1.2 RATIO (0.9-2.4); AST(SGOT) 21 U/L (15-37); Alanine Aminotransfer ALT/SGPT 26 U/L (13-56); Albumin, Serum 3.7 g/dL (3.2-5.0); Alkaline Phosphatase 101 U/L (45-117); Anion Gap 7 (5-15); BUN 14 mg/dL (7-18); BUN/Creat Ratio 16.7 RATIO (10-20); Calcium,Total 8.6 mg/dL (8.5-10.1); Chloride 104 mmol/L (98-107); Creatinine, Serum 0.84 mg/dL (0.55-1.02); EST Glomerular Filtration Rate 74 mL/min (>60); Est Glom Filt Rate - Afr Amer 89 mL/min (>60); Globulin 3.2 g/dL (2.2-4.2); Glucose 95 mg/dL (74-106); Protein, Total 6.9 g/dL (6.4-8.2); Sodium Level 140 mmol/L (136-145); Thyroid Stim Hormone (TSH) 1.99 uIU/mL (0.358-3.74)
== END | disposition home or self-care (01) ==
LOC: POLAB3 15:51
PROVIDERS: PCP Family Medicine Geriatric Medicine; Visit Provider Family Medicine Geriatric Medicine
DX: R53.83 Other fatigue (principal); E55.9 Vitamin D deficiency, unspecified
CPT/HCPCS: 36415; 80053; 82306; 84443; 85025

== ENCOUNTER 2022-07-15 20:30 | Emergency (ER) | payer MEDICARE, MEDICAID, SELFPAY ==
[2022-07-15 20:31] VITALS: BP 97/70; PULSE 87; RESP 15; TEMP 36.4; O2SAT 96
[2022-07-15] MEDS: 0.9% Normal Saline 1,000 ML 1000 ML IV (21:12)
[2022-07-15] MEDS: Ondansetron 4 MG/2 ML Vial IV (21:13)
[2022-07-15 21:14] VITALS: BMI 38.9
[2022-07-15 21:37] LABS: Anion Gap 9 (5-15); BUN 12 mg/dL (7-18); BUN/Creat Ratio 13.9 RATIO (10-20); Calcium,Total 9.4 mg/dL (8.5-10.1); Chloride 100 mmol/L (98-107); Creatinine, Serum 0.87 mg/dL (0.55-1.02); EST Glomerular Filtration Rate 71 mL/min (>60); Est Glom Filt Rate - Afr Amer 86 mL/min (>60); Estimated Creatinine Clearance 57.59 ml/min; Glucose 138 mg/dL (74-106); Potassium 3.8 mmol/L (3.5-5.1); Sodium Level 137 mmol/L (136-145)
--- NOTE | 2022-07-15 21:40 | EX.ED.DYSGE1 ---
HPI History of Present Illness Chief Complaint: General Illness Detail of Chief Complaint: Headache, aching, nausea and vomiting Informant: patient Onset/Context/Timing Onset: Weeks (Approximately 1 week) Context: Sudden Onset Timing: Continuous Quality: Systemic viral-like symptoms Location: Predominantly GI Current Severity: Mild Maximum Severity: Severe Worsened by: Attempt doing to eat or drink anything Relieved by: Nothing Associated Symptoms Associated Symptoms: Subjective fever. Narrative Narrative: Patient is a middle-aged woman with history of hypothyroidism, PAD, COPD, hypertension who presents with headache, body aches, nausea and vomiting. Patient was seen at [facility]. A rapid antigen COVID and influenza test was performed. The results were negative. Patient's has not had a documented fever. She complains of bifrontal head pain. She denies photophobia, change in vision or loss of vision. She denies ringing or ears or decreased hearing. She endorses mild congestion. She denies sore throat. She denies cough or shortness of breath. She denies chest pain. She complains of vague abdominal pain with nausea and vomiting. She had 1 episode of diarrhea. She denies hematemesis, melena hematochezia. She does endorse increased urination. She denies dysuria or hematuria. She denies back or flank pain. She has not noted a rash. She has no known ill contacts. Prior similar symptoms: Yes Recent Illness/Hospitalization: Yes [facility] Medical History Ambulates with cane Arthritis Asthma Back pain breast cyst removal Carpal tunnel syndrome Chronic bronchitis Chronic headaches COPD (chronic obstructive pulmonary disease) CPAP (continuous positive airway pressure) dependence Difficulty swallowing Easy bruising Former smoker Gastric reflux High cholesterol History of edema History of pain when walking Hives Hypertension Hypothyroidism Hypothyroidism (acquired) IBS (irritable bowel syndrome) Infection Leg cramps Low iron Migraine headache Multiple lung nodules Neuropathy Nodule of apex of left lung Osteoporosis r thumb surgery Rheumatoid arthritis Shortness of breath on exertion Wears dentures Wears glasses Home Medications albuterol sulfate 90 mcg/actuation aerosol inhaler 2 puff inhalation Q6H PRN asthma 06/02/19 [History Last Taken 05/05/22] dibucaine 1 % topical ointment 1 applic topical TID PRN Pain/Inflammation 06/02/19 [History Last Taken Unknown] epinephrine 0.3 mg/0.3 mL injection, auto-injector 0.3 mg IM ONCE 06/02/19 [History Last Taken Unknown] levothyroxine 75 mcg tablet 75 mcg PO DAILY 06/02/19 [History Last Taken 05/05/22] sumatriptan succinate 100 mg tablet See Rx Instructions PO .COMPLEX 06/02/19 [History Last Taken Unknown] aspirin 81 mg chewable tablet 81 mg PO DAILY@0800 06/15/20 [History Last Taken 04/28/22] loratadine 10 mg capsule 5 mg PO PRN PRN Allergies 06/15/20 [History Last Taken Unknown] hydrocodone-acetaminophen 5-325mg 5mg-325mg 1 tablet PO Q8H PRN PRN Pain 09/07/20 [History Last Taken Unknown] pregabalin 150 mg capsule 150 mg PO BID 09/07/20 [History Last Taken Unknown] atorvastatin 40 mg tablet 40 mg PO DAILY 07/22/21 [History Last Taken Unknown] budesonide 160 mcg-glycopyr 9 mcg-formot 4.8 mcg/actuation HFA inhaler (Breztri Aerosphere) 2 inh inhalation BID 07/22/21 [History Last Taken Unknown] cholecalciferol (vitamin D3) 50 mcg (2,000 unit) capsule 1,000 unit PO DAILY 07/22/21 [History Last Taken Unknown] promethazine 25 mg tablet 25 mg PO PRN PRN nausea and vomiting 07/22/21 [History Last Taken Unknown] metoclopramide HCl 10 mg tablet (Reglan) 10 mg PO Q6H PRN nausea and vomiting #14 tabs 07/29/21 [Rx Last Taken Unknown] pantoprazole 40 mg tablet,delayed release 40 mg PO BID 11/13/21 [History Last Taken 05/05/22] midodrine 10 mg tablet 10 mg PO TID 04/30/22 [History Last Taken Unknown] albuterol sulfate 1.25 mg/3 mL solution for nebulization 1.25 mg inhalation Q4H 05/28/22 [History Last Taken Unknown] ondansetron 4 mg disintegrating tablet 4 mg PO Q8H PRN PRN Nausea #10 tabs 07/15/22 [Rx Last Taken Unknown] Allergy/AdvReac Type Severity Reaction Status Date / Time prednisone Allergy Severe Angioedema Verified 07/15/22 20:36 latex Allergy Mild Hives, Verified 07/15/22 20:36 Itching johnson Allergy Unknown Unknown Verified 07/15/22 20:36 house dust Allergy Unknown Unknown Verified 07/15/22 20:36 ciprofloxacin Allergy breathing Verified 07/15/22 20:36 issues Environmental Allergies: Allergy NEEDS Verified 07/15/22 20:36 Uncoded FOLLOW-UP [metal] gabapentin Allergy Angioedema Verified 07/15/22 20:36 insect venom [insects] Allergy NEEDS Verified 07/15/22 20:36 FOLLOW-UP morphine Allergy Unknown Verified 07/15/22 20:36 pollen extracts [pollens] Allergy NEEDS Verified 07/15/22 20:36 FOLLOW-UP Family History Father Bowel disease Heart disease Respiratory disease Severe allergy Mother Thyroid disorder Sister Thyroid disorder Brother Prostate cancer Surgical History H/O colonoscopy H/O hemorrhoidectomy H/O hernia repair H/O oral surgery H/O: History of carpal tunnel release History of esophagogastroduodenoscopy (EGD) History of lumbar fusion History of tonsillectomy History of total abdominal hysterectomy S/P insertion of iliac artery stent Social History household members: none housing: house current occupational status: unemployed and disabled Smoking Status: Former smoker pack-years: 15 Tobacco: How many years used: 30 how long ago did patient quit smoking: smoked 1/2 ppd x 30 years, quit 13 years ago alcohol intake: never substance use type: does not use caffeine: No what type of physical activity do you participate in: none seatbelt use: never do you feel safe at home: Yes ROS ROS ED Constitutional Constitutional ED: Reports chills, fever(s) and subjective; Denies sweats or weight loss Eyes Eyes: Denies blurry vision, change in vision or diplopia ENT ENT ED: Denies ear pain, rhinorrhea or sore throat Cardiovascular Cardiovascular: Denies chest pain or palpitations Respiratory/Chest Respiratory/Chest: Denies cough, dyspnea or dyspnea on exertion Gastrointestinal Gastrointestinal: Reports abdominal pain, diarrhea, nausea and vomiting Genitourinary Genitourinary ED: Denies dysuria, hematuria or urinary frequency Musculoskeletal Musculoskeletal: Denies arthralgias, back pain, myalgias or neck pain Integumentary Denies Abrasions or rash Neurologic Neurologic: Reports headache(s) and weakness; Denies paresthesias Endocrine Endocrinology: Denies cold intolerance, heat intolerance, polydipsia or polyuria Hematologic/Lymphatic Hematologic/Lymphatic: Reports systems reviewed and no addt'l complaints, except as documented EXAM Physical Exam Const Vital Signs: 07/15/22 20:31 07/15/22 21:14 Temperature 97.6 F L Temperature Source Temporal Pulse Rate 87 Respiratory Rate 15 Respiratory Effort Normal Non-Labored Respiratory Pattern Normal Blood Pressure 97/70 Blood Pressure Mean 79 Pulse Ox 96 Oxygen Delivery Method Room Air Positive well nourished, well developed and obese Constitutional Narrative: Patient is on her left side shaking in the bed complaining of severe head pain. She also reports mild abdominal discomfort. General Appearance ED: well developed; Negative for cyanotic, diaphoretic or pallor Nutritional Appearance: obese HEENT Reports dry mucous membranes HEENT Narrative: Head is atraumatic normocephalic. Ears are normal. TMs are normal. Nares patent. Mucosa slightly dry. Posterior pharynx is normal. Mouth ED: Yes dry mucous membranes Mouth: dry mucous membranes Eyes PERRL and EOMs intact bilaterally General Eye ED: Negative for pale conjunctiva or scleral icterus Neck no lymphadenopathy, supple and no JVD Resp normal respiratory effort and clear to auscultation bilaterally Cardio regular rate, regular rhythm, S1 normal heart sound, S2 normal heart sound and no murmurs GI normal to inspection, nondistended, normoactive bowel sounds, non-distended and no masses; Negative for non-tender or hepatosplenomegaly GI Narrative: Patient has a area of erythema the size of a BB. Patient was placed on Augmentin for presumed insect bite that is infected. Patient does not recall an insect biting her. Auscultation: hypoactive bowel sounds Palpation: soft and tender other (Diffuse); Negative for guarding, splenomegaly or mass Back/Spine no CVA tenderness Extremity normal to inspection General Extremety ED: Negative for edema or tenderness General Extremity: Negative for edema Neuro oriented x3, CN's II-XII intact bilaterally and no sensory deficits noted Sensorium / Orientation: alert Motor Exam: strength 5/5 throughout Psych Mood & Affect: depressed Skin no rashes or lesions noted, no wounds and skin turgor normal General Skin Exam: elasticity normal; Negative for jaundice or pallor MDM MDM MDM Narrative Medical decision making narrative: Patient presents with systemic viral-like symptoms. Since patient had a COVID test and influenza test earlier today this was not repeated. She will receive 1 L of normal saline and Zofran for her nausea and vomiting. Basic metabolic panel was obtained to assess renal function, glucose anion gap and electrolytes. Prior records were reviewed. Lab Data Attestation: I reviewed the patient's lab results. Lab results narrative: Basic metabolic panel is normal except for an elevated glucose of 138. CO2 and anion gap are normal. There is no kidney dysfunction. GFR 71. Labs: Laboratory Results - last 24 hr 07/15/22 21:18 Sodium 137 Potassium 3.8 Chloride 100 Carbon Dioxide 28.0 Anion Gap 9 BUN 12 Creatinine 0.87 Estim Creat Clear Calc 57.59 Est GFR (MDRD) Af Amer 86 Est GFR (MDRD) Non-Af 71 BUN/Creatinine Ratio 13.9 Glucose 138 H Calcium 9.4 Treatment and Re-Evaluation Narrative: I was informed by nurse that she is complaining of severe headache. Acetaminophen was ordered. Patient was reassessed at 2245. She has improved. She is had no vomiting in the department. She was told her symptoms are consistent with a systemic viral infection. She was discharged home. Discharge Plan Triage Chief Complaint: General Illness ED Provider: Khris Rodriguez Dx/Rx/DC Orders Clinical Impression: Nausea & vomiting, History of peripheral arterial disease, Obesity, Acute generalized abdominal pain, Acute intractable headache, Systemic viral illness Instructions: ED Vomiting (Adult) Prescriptions: New ondansetron [ondansetron] 4 mg tablet,disintegrating 4 mg PO Q8H PRN PRN (Reason: Nausea) Qty: 10 0RF No Action levothyroxine 75 mcg tablet 75 mcg PO DAILY dibucaine 1 % ointment 1 applic TOPICAL TID PRN (Reason: Pain/Inflammation) epinephrine 0.3 mg/0.3 mL auto-injector 0.3 mg IM ONCE Rx Instructions: as a single dose albuterol sulfate 90 mcg/actuation HFA aerosol inhaler 2 puff INHALATION Q6H PRN (Reason: asthma) sumatriptan succinate 100 mg tablet See Rx Instructions PO .COMPLEX Rx Instructions: take 1 tab at onset of headache; if no relief may repeat 1 tab in 2hr; max = 2 tabs/24 hrs PO pregabalin 150 mg capsule 150 mg PO BID hydrocodone-acetaminophen 5-325 mg tablet 1 tablet PO Q8H PRN PRN (Reason: Pain) promethazine 25 mg tablet 25 mg PO PRN PRN (Reason: nausea and vomiting) cholecalciferol (vitamin D3) 50 mcg (2,000 unit) capsule 1,000 unit PO DAILY atorvastatin 40 mg tablet 40 mg PO DAILY Breztri Aerosphere 160-9-4.8 mcg/actuation HFA aerosol inhaler 2 inh inhalation BID albuterol sulfate 1.25 mg/3 mL solution for nebulization 1.25 mg inhalation Q4H pantoprazole 40 mg tablet,delayed release (DR/EC) 40 mg PO BID Label Comments: TAKE ONE TABLET BY MOUTH EVERY DAY ON an empty stomach 1/2 hour beforebreakfast aspirin 81 MG tablet,chewable 81 mg PO DAILY@0800 loratadine 10 MG capsule 5 mg PO PRN PRN (Reason: Allergies) metoclopramide HCl [Reglan] 10 mg tablet 10 mg PO Q6H PRN (Reason: nausea and vomiting) Qty: 14 0RF midodrine 10 mg Tablet 10 mg PO TID Rx Instructions: do not give last dose of day after 6PM or within 4 hrs of bedtime Primary Care Provider: Brian Baez Chi Referrals: Brian Baez Chi, MD [Primary Care Provider] - 3-5 Days if not improving Disposition Disposition: Home, Self Care
[2022-07-15] MEDS: Acetaminophen 325 MG Tablet 650 MG PO (21:44)
[2022-07-15 22:43] LABS: Bacteria 0 SEEN /hpf (None Seen); Red Blood Cells-Urine 0 SEEN /hpf (0-5); White Blood Cells 0 SEEN /hpf (0-5)
[2022-07-15 23:09] LABS: Color, Urine Yellow (Yellow); Glucose, Dipstick Normal (Normal); Ketone-Dipstick Negative (Negative); Leukocyte Esterase-Dipstick Negative /ul (Negative); Nitrite-Dipstick Negative (Negative); Occult Blood-Urine Negative /ul (Negative); Protein-Dipstick 15 mg/dl (Negative); Urine Bilirubin Dipstick Negative (Negative); Urine Clarity Clear (Clear); Urine Urobilinogen 1 mg/dl (Normal)
[2022-07-15 23:24] LABS: Mucous, Urine 1+ /hpf (<or=2+); Squamous Epithelial Cells - UA 0-5 SEEN /hpf (5-10)
[2022-07-15 23:45] VITALS: BP 112/62; PULSE 68; RESP 18; O2SAT 98
== END 2022-07-15 23:55 | disposition home or self-care (01) ==
PROVIDERS: Emergency Provider Emergency Medicine; PCP Family Medicine Geriatric Medicine; Visit Provider Emergency Medicine
DX: R11.2 Nausea with vomiting, unspecified (principal); J44.9 Chronic obstructive pulmonary disease, unspecified; R19.7 Diarrhea, unspecified; R51.9 Headache, unspecified; I10 Essential (primary) hypertension; Z87.891 Personal history of nicotine dependence; E66.9 Obesity, unspecified; Z20.822 Contact with and (suspected) exposure to COVID-19; E78.00 Pure hypercholesterolemia, unspecified; R10.9 Unspecified abdominal pain; B33.8 Other specified viral diseases; Z86.79 Personal history of other diseases of the circulatory system
CPT/HCPCS: 80048; 81001; 96361; 96374; 99285; A4216; J2405

== ENCOUNTER → 2022-08-08 | Outpatient (CLI) | payer MEDICARE, MEDICAID, SELFPAY ==
--- NOTE | 2022-08-08 11:35 | BI_ITS ---
MAMMOGRAPHY - BILATERAL SCREENING REASON FOR EXAM: Female, 61 years old. Routine annual screening examination. PERTINENT HISTORY: Non-contributory. History of prior right excisional breast biopsy. TECHNIQUE: Digital bilateral breast gladys (3D mammographic acquisition) in the CC and MLO projections. 2-D mediolateral oblique (MLO) and craniocaudad (CC) views of both breasts were obtained. CAD: Full Field Digital Mammography with Computer Added Detection was performed. COMPARISON: Comparison is made with prior study dated August 07, 2021. FINDINGS: Breast Composition: There are scattered areas of fibroglandular density. There are no dominant masses or suspicious calcifications. Stable small benign-appearing bilateral axillary lymph nodes. No other significant abnormalities are identified. There has been no significant change since the prior study. BI/SCRN MAMM (CAD)W/GLADYS BILAT IMPRESSION: Stable bilateral screening mammogram. Yearly follow-up mammogram recommended. (A) ASSESSMENT CATEGORY: BIRADS Category 2: Benign. A letter regarding these results will be sent to the patient by the facility within 30 days. Approximately 10% of breast cancers are not detected by mammography. A normal mammogram should not delay biopsy of a clinically suspicious abnormality. [id number] Electronically Signed: Basilio Colindres MD at 12:37 EDT ,
== END | disposition home or self-care (01) ==
PROVIDERS: PCP Family Medicine Geriatric Medicine; Visit Provider Internal Medicine Hematology & Oncology
DX: Z12.31 Encounter for screening mammogram for malignant neoplasm of breast (principal)
CPT/HCPCS: 77063; 77067

== ENCOUNTER → 2022-10-01 | Outpatient (CLI) | payer MEDICARE, MEDICAID, SELFPAY ==
[2022-10-01 14:38] LABS: Amphetamine Urine VISTA NEGATIVE (<1000 ng/mL); Barbiturate Urine VISTA NEGATIVE (< 200 ng/mL); Benzodiazepine Urine VISTA NEGATIVE (< 200 ng/mL); Cocaine Urine VISTA NEGATIVE (< 300 ng/mL); Ecstacy Urine VISTA NEGATIVE (< 500 ng/mL); Methadone Urine VISTA NEGATIVE (< 300 ng/mL); PCP Urine VISTA NEGATIVE (< 25 ng/mL); THC Urine VISTA NEGATIVE (< 50 ng/mL); Vista UDS pH Range 4
== END | disposition home or self-care (01) ==
LOC: LABSPEC 13:14 → LAB 13:16
PROVIDERS: PCP Family Medicine Geriatric Medicine; Referring Provider Anesthesiology Pain Medicine; Visit Provider Anesthesiology Pain Medicine
DX: F11.20 Opioid dependence, uncomplicated (principal)
CPT/HCPCS: 80307

== ENCOUNTER → 2022-10-20 | Outpatient (CLI) | payer MEDICARE, MEDICAID, SELFPAY ==
[2022-10-20 17:20] LABS: Hemoglobin A1c 5.3 % (3.8-5.6)
== END | disposition home or self-care (01) ==
LOC: LAB 15:51
PROVIDERS: PCP Family Medicine Geriatric Medicine; Referring Provider Family Medicine Geriatric Medicine; Visit Provider Family Medicine Geriatric Medicine
DX: E11.65 Type 2 diabetes mellitus with hyperglycemia (principal)
CPT/HCPCS: 36415; 83036

== ENCOUNTER → 2022-10-30 | Outpatient (CLI) | payer MEDICARE, MEDICAID, SELFPAY ==
--- NOTE | 2022-10-30 13:40 | US_ITS ---
STUDY: THYROID ULTRASOUND REASON FOR EXAM: Female, 62 years old. NODULE TECHNIQUE: Ultrasound evaluation of the thyroid was performed with real-time and static moran-scale imaging. COMPARISON: None. FINDINGS: RIGHT LOBE: The right lobe of the thyroid gland measures 5.3 x 1.2 x 2.1 cm. There is a heterogeneous echotexture. 2 heterogeneous nodules noted. One in the inferior lobe measures 1.1 x 0.6 x 0.9 cm and one in the superior lobe measuring 0.5 x 0.5 x 0.4 cm. LEFT LOBE: The left lobe of the thyroid gland measures 4.5 x 1.7 x 1.4 cm. There is a heterogeneous echotexture. Nodule in the superior lobe measures 0.8 x 0.5 x 0.4 cm. ISTHMUS: The isthmus measures 0.25 cm . The regional lymph nodes are normal. US/Thyroid IMPRESSION: Multinodular goiter. Dominant heterogeneous nodule noted on the right. Comparison would be helpful. Otherwise FNA as clinically warranted although nuclear medicine may be helpful for further characterization. Electronically Signed: Dajuan Cutler MD at 21:20 EDT ,
== END | disposition home or self-care (01) ==
LOC: US 13:38
PROVIDERS: PCP Family Medicine Geriatric Medicine; Referring Provider Family Medicine Geriatric Medicine; Visit Provider Family Medicine Geriatric Medicine
DX: E04.1 Nontoxic single thyroid nodule (principal)
CPT/HCPCS: 76536

== ENCOUNTER → 2022-12-18 | Outpatient (CLI) | payer MEDICARE, MEDICAID, SELFPAY ==
[2022-12-18 17:13] LABS: Absolute Neutrophil Count 3.7 X10^3/uL (2.0-7.7); Basophil# 0.04 X10^3/uL; Basophil% 0.7 % (0-1); Eosinophils% 3.7 % (0-5); Hematocrit 40.7 % (37-47); Hemoglobin 13.3 g/dL (12.0-15.0); Lymphocyte % 18.3 % (19-41); Mean Corp Hgb Conc 32.7 g/dL (32-36); Mean Corpuscular Hgb 29.4 pg (27.0-32.0); Mean Corpuscular Volume 89.8 fL (81-99); Mean Platelet Vol. 10.8 fl (6.2-12.0); Monocyte% 9.2 % (0-10); NRBC Flagged by Analyzer 0 % (0-5); Neutrophil # 3.69 X10^3/uL (2.7-7.7); Neutrophil % 67.6 % (47-70); Platelet Count 349 K/mm3 (150-450); RBC Distribution Width SD 45.5 fl (35.1-43.9); Red Blood Count 4.53 M/mm3 (4.2-5.4); White Blood Count 5.5 K/mm3 (4.4-11.0)
[2022-12-18 18:53] LABS: ALB/GLOB Ratio 1.1 RATIO (0.9-2.4); AST(SGOT) 18 U/L (15-37); Alanine Aminotransfer ALT/SGPT 25 U/L (13-56); Albumin, Serum 3.8 g/dL (3.2-5.0); Alkaline Phosphatase 113 U/L (45-117); Anion Gap 8 (5-15); BUN 15 mg/dL (7-18); BUN/Creat Ratio 19.2 RATIO (10-20); Calcium,Total 8.6 mg/dL (8.5-10.1); Chloride 104 mmol/L (98-107); Cholesterol 79 mg/dL (200); Creatinine, Serum 0.78 mg/dL (0.55-1.02); EST Glomerular Filtration Rate 80 mL/min (>60); Est Glom Filt Rate - Afr Amer 96 mL/min (>60); Globulin 3.4 g/dL (2.2-4.2); Glucose 100 mg/dL (74-106); High Density Lipoprotein 38 mg/dL; Potassium 3.8 mmol/L (3.5-5.1); Protein, Total 7.2 g/dL (6.4-8.2); Sodium Level 138 mmol/L (136-145); Thyroid Stim Hormone (TSH) 1.35 uIU/mL (0.358-3.74); Triglycerides 141 mg/dL; Very Low Density Lipoprotein 28 mg/dL (5-40)
== END | disposition home or self-care (01) ==
PROVIDERS: PCP Family Medicine Geriatric Medicine; Visit Provider Family Medicine Geriatric Medicine
DX: E11.65 Type 2 diabetes mellitus with hyperglycemia (principal); R53.83 Other fatigue
CPT/HCPCS: 36415; 80053; 80061; 83036; 84443; 85025

== ENCOUNTER → 2023-01-15 | Outpatient (CLI) | payer MEDICARE, MEDICAID, SELFPAY | END | disposition home or self-care (01) | LOC: PSN 08:42 | PROVIDERS: PCP Family Medicine Geriatric Medicine; Referring Provider Family Medicine Geriatric Medicine; Visit Provider Family Medicine Geriatric Medicine | DX: R68.83 Chills (without fever) (principal) | CPT/HCPCS: 87635; 87804; 87807; C9803 ==

== ENCOUNTER → 2023-03-19 | Outpatient (CLI) | payer MEDICARE, MEDICAID, SELFPAY ==
[2023-03-19 17:46] LABS: Absolute Lymphocyte Count 1.02 X10^3/uL (0.83-4.51); Absolute Neutrophil Count 3.4 X10^3/uL (2.0-7.7); Basophil# 0.05 X10^3/uL; Eosinophil# 0.17 X10^3/uL; Eosinophils% 3.3 % (0-5); Hematocrit 41.1 % (37-47); Hemoglobin 13.1 g/dL (12.0-15.0); Lymphocyte # 1.02 X10^3/ul (0.83-4.51); Mean Corp Hgb Conc 31.9 g/dL (32-36); Mean Corpuscular Hgb 29.4 pg (27.0-32.0); Mean Corpuscular Volume 92.4 fL (81-99); Mean Platelet Vol. 10.7 fl (6.2-12.0); Monocyte# 0.45 X10^3/uL; Monocyte% 8.8 % (0-10); NRBC Flagged by Analyzer 0 % (0-5); Neutrophil # 3.38 X10^3/uL (2.7-7.7); Neutrophil % 66.5 % (47-70); Platelet Count 344 K/mm3 (150-450); RBC Distribution Width CV 14.4 % (11.6-14.6); RBC Distribution Width SD 48.5 fl (35.1-43.9); Red Blood Count 4.45 M/mm3 (4.2-5.4); White Blood Count 5.1 K/mm3 (4.4-11.0)
[2023-03-19 18:26] LABS: Hemoglobin A1c 4.8 % (3.8-5.6)
[2023-03-19 18:28] LABS: ALB/GLOB Ratio 1.1 RATIO (0.9-2.4); AST(SGOT) 21 U/L (15-37); Alanine Aminotransfer ALT/SGPT 30 U/L (13-56); Albumin, Serum 3.7 g/dL (3.2-5.0); Alkaline Phosphatase 105 U/L (45-117); Anion Gap 6 (5-15); BUN 11 mg/dL (7-18); BUN/Creat Ratio 15.7 RATIO (10-20); Calcium,Total 8.8 mg/dL (8.5-10.1); Chloride 105 mmol/L (98-107); Cholesterol 102 mg/dL (200); EST Glomerular Filtration Rate 90 mL/min (>60); Est Glom Filt Rate - Afr Amer 109 mL/min (>60); Globulin 3.4 g/dL (2.2-4.2); Glucose 83 mg/dL (74-106); High Density Lipoprotein 37 mg/dL; Potassium 4.3 mmol/L (3.5-5.1); Protein, Total 7.1 g/dL (6.4-8.2); Sodium Level 137 mmol/L (136-145); Thyroid Stim Hormone (TSH) 1.43 uIU/mL (0.358-3.74); Triglycerides 125 mg/dL; Very Low Density Lipoprotein 25 mg/dL (5-40)
== END | disposition home or self-care (01) ==
LOC: POLAB3 14:08
PROVIDERS: PCP Family Medicine Geriatric Medicine; Visit Provider Family Medicine Geriatric Medicine
DX: E11.65 Type 2 diabetes mellitus with hyperglycemia (principal); R53.83 Other fatigue; E78.5 Hyperlipidemia, unspecified
CPT/HCPCS: 36415; 80053; 80061; 83036; 84443; 85025

== ENCOUNTER → 2023-03-31 | Outpatient (CLI) | payer MEDICARE, MEDICAID, SELFPAY ==
--- NOTE | 2023-03-31 14:00 | ASPS_PTH ---
PATIENT: YUNIER ZAMORA LOC: [facility] U#:[id number] AGE/SX: 62/F ROOM: RE03/31/[address]: Dr. Cory Smalls MD : 1960 BED: DIS: 03/31/2023 SPEC #: [id number] RECD: 03/31/23 15:46 STATUS: COLT REBrendan #: [id number] ELVIRA: 03/31/23 14:[address]: Cory Smalls DEPT: CYTOLOGY RECD BY: Rehana May ENTERED: 04/01/23 10:04 SP TYPE: ASPIRATION OTHR DR: Dr. Brian Baez MD Tissues: Thyroid gland, NOS Procedures: Special Stain Group II Cytology Other HEADER OPERATION: Fine needle aspiration right thyroid nodule PRE-OP DIAGNOSIS: Right thyroid nodule TISSUE SUBMITTED: Right thyroid nodule x6 slides DIAGNOSIS CYTOLOGY Fine needle aspiration, right thyroid nodule (smears): Consistent with benign follicular nodule, [place] Category II. Chronic inflammation. See comment. AM:roger 04/02/2023 COMMENT The [place] System for thyroid diagnostic categorization was used in the evaluation of this case. Adequate for evaluation. CYTOLOGY STUDY Slides are reviewed. CYTOLOGY GROSS Received are six smears labeled with the patient's name and designated per the requisition as right thyroid. Submitted for staining. / roger 04/01/2023 TC:3 CPT: 35541
== END | disposition home or self-care (01) ==
PROVIDERS: PCP Family Medicine Geriatric Medicine; Referring Provider Surgery; Visit Provider Surgery
DX: E04.1 Nontoxic single thyroid nodule (principal); E06.9 Thyroiditis, unspecified
CPT/HCPCS: 88161; 88313

== ENCOUNTER → 2023-05-01 | Outpatient (CLI) | payer MEDICARE, MEDICAID, SELFPAY | END | disposition home or self-care (01) | PROVIDERS: PCP Family Medicine Geriatric Medicine; Referring Provider Family Medicine Geriatric Medicine; Visit Provider Family Medicine Geriatric Medicine | DX: R68.83 Chills (without fever) (principal) | CPT/HCPCS: 87635; 87804; 87807; C9803 ==

== ENCOUNTER 2023-06-11 08:31 | Outpatient (CLI) | payer MEDICARE, MEDICAID, SELFPAY ==
[2023-06-11] MEDS: 0.9% NaCl Peripheral Flush Adult/Peds IV (08:40)
[2023-06-11 08:46] VITALS: BP 93/62; PULSE 81; RESP 16; TEMP 36.3; O2SAT 92; BMI 34.3
[2023-06-11] MEDS: Zoledronic Acid 5 MG 100 ML 300 MG IV (09:01)
--- OUTSIDE RECORDS SUMMARY | 2023-06-11 09:15 | XMS RPT_ITS | CCD ---
Author Name Unknown Address [address] [place] [address] Organization [facility] Care Team Providers Care [employer] Operation Name Role Phone No Doctor Assigned, Nodr Primary Care Unavail able Chacho Farmer Consulting Unavailable Chacho Farmer Referring Unavailable Alma Delia Cabral Attending Unavailable Alma Delia Cabral Admitting Unavailable ALMA DELIA CABRAL MD. Attending Unavailable Renetta Hess Unavailable Unavailable Alis Cota Unavailable Unavailable Amparo Haines Unavailable Unavailable TALIA CORDERO Attending UnavailVi León PA-C Unavailable Alis Cota MD Primary Care Provider Alis Cota Unavailable Alis Cota MD Primary Care Provider KENDRA, PHYSICIAN Primary Care Unavailable JOYCE SCHULTZ Attending Unava ilable JOYCE SCHULTZ Attending Unava ilable NO, PHYSICIAN Primary Care Unavailable Yanira, Dr. Alis Del Toro Primary Care Wenceslao Griggs, Dr. Ottoniel Ortiz Attending Wenceslao Muniz, Dr. Jonnie Hugo Attending Unavail able Yanira, Dr. Alis Del Toro Primary Care Wenceslao Muniz, Dr. Jonnie Hugo Attending Unavail able Yanira, Dr. Alis Del Toro Primary Care Wenceslao Muniz, Dr. Jonnie Hugo Attending Unavail able Yanira, Dr. Alis Del Toro Primary Care Wenceslao Muniz, Dr. Jonnie Hugo Attending Unavail able Yanira, Dr. Alis Del Toro Primary Care Wenceslao Cota, Dr. Alis Del Toro Primary Care Dr. Ottoniel Parra Attending CELINA Nichole Attending Unavailable CELINA ELLINGTON Referring Unavailable ALIS COTA Primary Care Unavailable CELINA ELLINGTON Referring Unavailable ALIS COTA Primary Care Unavailable CELINA ELLINGTON Attending Unavailable CELINA ELLINGTON Referring Unavailable ALIS COTA Primary Care Unavailable CELINA ELLINGTON Referring Unavailable ALIS COTA Primary Care Unavailable Allergies Allergy Classification Reported Allergen(s) Allergy Type Date of Onset Reaction(s) Facility (9 sources) laguna allergenic extract; Translations: [LAGUNA] Drug Allergy 3 Swelling, Anaphylaxis [facility] Repository (8 sources) ciprofloxacin; Translations: [CIPROFLOXACIN] Drug Allergy 6 Other: See Comments [facility] Repository (8 sources) Dust; Translations: [DUST] Propensity to adverse reactions (disorder) 3 Swelling [facility] Repository (9 sources) gabapentin; Translations: [GABAPENTIN] Drug Allergy 8 Swelling [facility] Repository (9 sources) morphine; Translations: [MORPHINE] Drug Allergy 3 Vomiting [facility] Repository (8 sources) Pollen; Translations: [POLLEN] Propensity to adverse reactions (disorder) 3 Swelling [facility] Repository (7 sources) INSECT PARTS; Translations: [INSECT PARTS] Propensity to adverse reactions (disorder) 6 Swelling, Shortness of Breath, Myalgia [facility] Repository (1 source) Codeine Drug Allergy 0 makes her sick [facility] Work Phone: (1 source) House dust mite; Translations: [DUST MITES] allergy to substance 0 head congestion [facility] Work Phone: (2 sources) Latex; Translations: [LATEX] allergy to substance 1 [facility] Work Phone: (2 sources) Mold Extract; Translations: [MOLD] Drug Allergy 0 head congestion [facility] Work Phone: (1 source) Morphine Drug Allergy 0 makes her sick [facility] Work Phone: (2 sources) predniSONE; Translations: [PREDNISONE] Drug Allergy 2 rash, swelling [facility] Work Phone: (1 source) CHERRIES; Translations: [CHERRIES] food allergy 0 extreme swelling [facility] Work Phone: (1 source) STINGING INSECTS; Translations: [STINGING INSECTS] food allergy 0 Extreme swelling [facility] Work Phone: (1 source) PLANT POLLENS (HAY FEVER) drug allergy 0 head congestion [facility] Work Phone: (7 sources) Alendronate; Translations: [ALENDRONATE] Drug Allergy 0 Other: See Comments [facility] Work Phone: (1 source) Codeine; Translations: [CODEINE] Drug Allergy 0 [facility] Repository (1 source) house dust allergenic extract; Translations: [HOUSE DUST] Drug Allergy 3 [facility] Repository (1 source) Pollen; Translations: [POLLEN EXTRACTS] Propensity to adverse reactions to drug (disorder) 3 [facility] Repository (1 source) HOUSE DUST MITE; Translations: [HOUSE DUST MITE] Propensity to adverse reactions to drug (disorder) 0 [facility] Repository (1 source) INSECT VENOM; Translations: [INSECT VENOM] Propensity to adverse reactions to drug (disorder) 2 [facility] Repository Medications Current Medications Medication Drug Class(es) Dates Sig (Normalized) Sig (Original) perflutren lipid microspheres 1.3 mL in NaCl (PF) 0.9% 10 mL injection (DEFINITY) (10 sources) Start: 04-15-2021 End: 07-15-2022 perflutren lipid microspheres 1.3 mL in NaCl (PF) 0.9% 10 mL injection (DEFINITY) Completed/Discontinued Medications Medication Drug Class(es) Dates Sig (Normalized) Sig (Original) acetaminophen 325 mg / HYDROcodone bitartrate 5 mg oral tablet (6 sources) Opioid Agonist Start: 05-16-2021 take 1 tablet by mouth every four to six hours as needed for pain HYDROCODONE-ACETAM INOPHEN 5-325 MG TABS Take 1 tablet by mouth every four to six hours while awake as needed for pain For post-op use hydrocodone-acetam inophen [id number] Vi Sanderson PA-C Problems Active Problems Problem Classification Problem Date Documented Date Episodic/Chronic Asthma (7 sources) Uncomplicated mild persistent asthma; Translations: [Mild persistent asthma, uncomplicated] Onset: 02-25-2018 02-25-2018 Chronic Chronic obstructive pulmonary disease and bronchiectasis (5 sources) Chronic obstructive lung disease; Translations: [Chronic obstructive pulmonary disease, unspecified] Onset: 01-03-2016 02-05-2019 Chronic Chronic obstructive pulmonary disease and bronchiectasis (2 sources) Bronchitis, not specified as acute or chronic; Translations: [Bronchitis, not specified as acute or chronic] Onset: 07-13-2022 Episodic Disorders of lipid metabolism (5 sources) Dyslipidemia; Translations: [Hyperlipidemia, unspecified] Onset: 06-02-2018 06-02-2018 Chronic Esophageal disorders (5 sources) Gastroesophageal reflux disease; Translations: [Gastro-esophageal reflux disease without esophagitis] 02-05-2019 Chronic Headache; including migraine (5 sources) Migraine without aura, not refractory ; Translations: [Migraine without aura, not intractable, without status migrainosus] 05-13-2021 Chronic Osteoarthritis (7 sources) Unilateral primary osteoarthritis of first carpometacarpal joint, left hand; Translations: [Osteoarthrosis, localized, primary, hand] Onset: 04-06-2018 05-15-2021 Chronic Osteoporosis (5 sources) Senile osteoporosis; Translations: [Age-related osteoporosis without current pathological fracture] Onset: 04-25-2019 04-25-2019 Chronic Other aftercare (12 sources) Patient encounter status; Translations: [Other exterminator (current) drug therapy] Onset: 06-01-2018 10-05-2019 Episodic Other circulatory disease (5 sources) Raynaud's disease; Translations: [Raynaud's syndrome without gangrene] 10-05-2019 Chronic Other connective tissue disease (4 sources) Paraparesis; Translations: [Other musculoskeletal symptoms referable to limbs] Episodic Other connective tissue disease (1 source) Other symptoms and signs involving the musculoskeletal system; Translations: [Oth symptoms and signs involving the musculoskeletal system] Onset: 09-29-2022 Episodic Other nutritional; endocrine; and metabolic disorders (2 sources) Body mass index 40+ - severely obese; Translations: [Body mass index (BMI) 40.0-44.9, adult] Onset: 02-08-2020 02-08-2020 Chronic Other nutritional; endocrine; and metabolic disorders (5 sources) Obese class II; Translations: [Obesity, unspecified] Onset: 06-07-2018 06-30-2018 Chronic Other upper respiratory disease (5 sources) Allergic rhinitis; Translations: [Allergic rhinitis, unspecified] 12-29-2018 Chronic Residual codes; unclassified (5 sources) Obstructive sleep apnea syndrome; Translations: [Obstructive sleep apnea (adult) (pediatric)] 10-05-2019 Chronic Spondylosis; intervertebral disc disorders; other back problems (6 sources) Arthritis of lumbosacral spine; Translations: [Other spondylosis with radiculopathy, lumbosacral region] Onset: 10-15-2017 10-24-2020 Chronic Spondylosis; intervertebral disc disorders; other back problems (19 sources) Backache; Translations: [Spinal stenosis of lumbar region] Onset: 10-08-2017 02-08-2020 Episodic Systemic lupus erythematosus and connective tissue disorders (5 sources) Systemic sclerosis with limited cutaneous involvement; Translations: [Systemic sclerosis, unspecified] Onset: 12-15-2018 02-05-2019 Chronic Thyroid disorders (5 sources) Acquired hypothyroidism; Translations: [Hypothyroidism, unspecified] Onset: 06-03-2015 02-05-2019 Chronic Unclassified (1 source) Unknown / UNK(Unknown) Onset: 12-21-2017 Unclassified (1 source) Cough, unspecified; Translations: [Cough, unspecified] Onset: 11-20-2021 Past or Other Problems Problem Classification Problem Date Documented Date Episodic/Chronic Diabetes mellitus without complication (5 sources) Hyperglycemia; Translations: [Impaired fasting glucose] Onset: 06-02-2018 06-02-2018 Episodic Gangrene (1 source) Gangrene, not elsewhere classified; Translations: [Gangrene] Onset: 05-15-2021 05-15-2021 Episodic Hemorrhoids (5 sources) Bleeding internal hemorrhoids; Translations: [Other hemorrhoids] Onset: 04-17-2016 07-04-2016 Episodic Other acquired deformities (1 source) Spondylolisthesis; Translations: [Spondylolisthesis, lumbosacral region] Onset: 10-24-2020 10-24-2020 Episodic Other aftercare (5 sources) Drug therapy finding; Translations: [Other half-way (current) drug therapy] Onset: 10-05-2019 10-05-2019 Episodic Other diseases of veins and lymphatics (7 sources) Iliac vein compression syndrome; Translations: [Compression of vein] Onset: 03-10-2018 01-28-2019 Episodic Other diseases of veins and lymphatics (5 sources) Occlusion of iliac vein; Translations: [Compression of vein] Onset: 04-23-2018 12-29-2018 Episodic Other diseases of veins and lymphatics (1 source) Compression of vein; Translations: [May-Thurner syndrome] Onset: 01-28-2019 Episodic Other lower respiratory disease (5 sources) Nodule of lung; Translations: [Solitary pulmonary nodule] Onset: 10-19-2017 05-03-2020 Episodic Other nervous system disorders (1 source) Anesthesia of skin; Translations: [Anesthesia of skin] Onset: 05-15-2021 05-15-2021 Episodic Other nervous system disorders (5 sources) Numbness of lower limb ; Translations: [Anesthesia of skin] Onset: 12-29-2018 12-29-2018 Episodic Residual codes; unclassified (1 source) H/O Spinal surgery; Translations: [Other specified postprocedural states] Onset: 03-28-2020 03-28-2020 Episodic Residual codes; unclassified (5 sources) Edema, generalized; Translations: [Generalized edema] Onset: 12-29-2018 05-14-2021 Episodic Residual codes; unclassified (5 sources) Blood group O Rh(D) positive; Translations: [Type O blood, Rh positive] Onset: 03-08-2020 03-08-2020 Episodic Screening and history of mental health and substance abuse codes (5 sources) Ex-smoker; Translations: [Personal history of nicotine dependence] Onset: 10-19-2017 10-19-2017 Episodic Unclassified (1 source) Problem Unclassified (1 source) Cough, unspecified; Translations: [Cough, unspecified] Onset: 11-20-2021 NEGATED: Highlighted row has not occurred!Residual codes; unclassified (9 sources) Disease Episodic Results Test Name Value Interpretation Reference Range Facil ity Vital Signs Date Time Vital Sign Value Performing Clinician Facility 05-20-2022 10:00-0500 Diastolic blood pressure 70 mm[Hg] Celina Ellington DO Work Phone: [facility] 05-20-2022 10:00-0500 Heart rate 65 /min Celina Ellington DO Work Phone: [facility] 05-20-2022 10:00-0500 SaO2% (BldA) [Mass fraction] 95 % Celina Ellington DO Work Phone: [facility] 05-20-2022 10:00-0500 Systolic blood pressure 110 mm[Hg] Celina Ellington DO Work Phone: [facility] NEGATED: Highlighted [id number] 09:15-0400 Body height 157.48 cm Caroline Oquendo AT [facility] Work Phone: NEGATED: Highlighted [id number] 09:15-0400 Body height 157 cm Caroline Oquendo AT [facility] Work Phone: NEGATED: Highlighted [id number] 09:15-0400 Body mass index (BMI) [Ratio] 39.47 kg/m2 Caroline Oquendo AT [facility] Work Phone: NEGATED: Highlighted [id number] 09:15-0400 Body weight 97.52 kg Caroline Oquendo AT [facility] Work Phone: NEGATED: Highlighted [id number] 09:15-0400 Body weight 98 kg Caroline Jere AT [facility] Work Phone: Encounters Encounter Date Encounter Type Care Provider Facility Start: 02-17-2023 End: 02-17-2023 ambulatory CELINA ELLINGTON Facility:[facility] Start: 09-29-2022 Patient encounter procedure Alis Cota Work Phone: [facility] Work Phone: Start: 09-29-[address] Jonnie Covington is Basali Facility:[id number] Start: 09-25-[address] Jonnie Covington is Basali Facility:[id number] Start: 09-22-2022 Patient encounter procedure Alis Cota Work Phone: [facility] Work Phone: Start: 09-22-[address] Jonnie Covington is Basali Facility:[id number] Start: 09-04-[address] Jonnie Covington is Basali Facility:[id number] Start: 09-04-2022 Patient encounter procedure Alis Cota Work Phone: [facility] Work Phone: Start: 08-13-2022 ambulatory Alis clemens MD Work Phone: Internal Medicine [facility] [place] Start: 07-13-2022 End: 07-13-2022 Emergency department patient visit PHYSICIAN [facility] Start: 05-20-2022 End: 05-20-2022 ambulatory CELINA ELLINGTON Facility:[facility] Start: 05-20-2022 End: 05-20-2022 Patient encounter procedure Celina Ellington DO Work Phone: Vascular Surgery Procedures Date Procedure Procedure Detail Performing Clinician Start: 08-21-2021 End: 08-21-2021 Belt strap sleev grmnt cover Vi Sanderson PA-C Work Phone: Start: 08-21-2021 End: 08-21-2021 BP scrn no perf at interval Vi Manriquezr [employer] Work Phone: Start: 08-21-2021 End: 08-21-2021 Calc BMI out nrm kika nof/u [facility] Work Phone: Start: 08-21-2021 End: 08-21-2021 Current tobacco non-user cad cap copd pv dm Vi Holland [employer] Work Phone: Start: 08-21-2021 End: 08-21-2021 Docrev cur meds by jerry [facility] [employer] Work Phone: Start: 08-21-2021 End: 08-21-2021 Osteoarthritis symptoms&funcjal status asses Vi Holland [employer] Work Phone: Start: 08-21-2021 End: 08-21-2021 Pain doc pos and plan Vi Holland [employer] Work Phone: Start: 08-21-2021 End: 08-21-2021 Patient encounter procedure Vi Sanderson [employer] Work Phone: Start: 04-18-2021 Adult depression screening assessment Alis Cota MD Work Phone: Start: 12-18-2020 Colonoscopy Alis leroy MD Work Phone: Start: 08-01-2020 Mammography Alis leroy MD Work Phone: NEGATED: Highlighted rowStart: 08-21-2021 End: 08-21-2021 Documentation of current medications Caroline Oquendo AT Plan of Treatment Date Care Activity Detail Author Start: 12-18-2030 Colonoscopy COLONOSCOPY [facility] Start: 12-18-2030 COLORECTAL CANCER SCREENING COLORECTAL CANCER SCREENING [facility] Start: 09-16-2027 PNEUMOCOCCAL (3 - PPSV23 if available, else PCV20) PNEUMOCOCCAL (3 - PPSV23 if available, else PCV20) [facility] Start: 09-16-2027 PNEUMOCOCCAL (4 - PPSV23 if available, else PCV20) PNEUMOCOCCAL (4 - PPSV23 if available, else PCV20) [facility] Start: 09-16-2027 PNEUMOCOCCAL (4 - PPSV23 or PCV20) PNEUMOCOCCAL (4 - PPSV23 or PCV20) [facility] Start: 04-08-2026 LIPID SCREEN LIPID SCREEN [facility] Start: 07-27-2024 Urine microalbumin profile DTAP,TDAP,TD (2 - Td or Tdap) [facility] Start: 04-08-2024 DIABETES SCREEN DIABETES SCREEN [facility] Start: 10-16-2022 PTRECHADPORTER, Provider: Yesi Maxwell, Status: Pen, Time: 1:30 PM PTRECHADPORTER, Provider: Yesi Maxwell, Status: Pen, [facility]: [facility] Start: 10-14-2022 AQUATICFU4, Provider: Alyssa Cintron, Status: Pen, Time: 1:00 PM AQUATICFU4, Provider: Alyssa Cintron, Status: Pen, Time: 1:00 PM [facility] Work Phone: Start: 10-09-2022 AQUATICFU4, Provider: Alyssa Cintron, Status: Pen, Time: 2:15 PM AQUATICFU4, Provider: Alyssa Cintron, Status: Pen, Time: 2:15 PM [facility] Work Phone: Start: 10-07-2022 AQUATICFU4, Provider: Alyssa Cintron, Status: Pen, Time: 1:00 PM AQUATICFU4, Provider: Alyssa Cintron, Status: Pen, Time: 1:00 PM [facility] Work Phone: Start: 10-06-2022 AQUATICFU4, Provider: Bailey Burciaga, Status: Pen, Time: 2:30 PM AQUATICFU4, Provider: Bailey Burciaga, Status: Pen, Time: 2:30 PM [facility] Start: 10-03-2022 AQUATICFU4, Provider: Bailey Burciaga, Status: Pen, Time: 10:45 AM AQUATICFU4, Provider: Bailey Burciaga, Status: Pen, Time: 10:45 AM [facility]: Start: 10-02-2022 AQUATICFU4, Provider: Alyssa Cintron, Status: Pen, Time: 3:00 PM AQUATICFU4, Provider: Alyssa Cintron, Status: Pen, Time: 3:00 PM [facility]: Start: 09-29-2022 AQUATICFU4, Provider: Bailey Burciaga, Status: Pen, Time: 3:15 PM AQUATICFU4, Provider: Bailey Burciaga, Status: Pen, Time: 3:15 PM [facility] Work [facility]: Start: 09-25-2022 AQUATICFU4, Provider: Alyssa Cintron, Status: Pen, Time: 3:00 PM AQUATICFU4, Provider: Alyssa Cintron, Status: Pen, Time: 3:00 PM [facility] Work [facility]: Start: 05-18-2022 DEPRESSION ASSESSMENT DEPRESSION ASSESSMENT [facility] Start: 04-23-2022 PTRECHADPORTER, Provider: Hair Servin, Status: Pen, Time: 11:15 AM PTRECHADPORTER, Provider: [employer], Status: Pen, Time: 11:15 AM [facility] Work [facility]: Start: 04-19-2022 ANNUAL PCP TEAM CHRONIC DISEASE VISIT ANNUAL PCP TEAM CHRONIC DISEASE VISIT [facility] Start: 04-18-2022 Adult depression screening assessment DEPRESSION SCREENING [facility] Start: 04-17-2022 PTFUADULT4, Provider: Gogo Montgomery, Status: Pen, Time: 11:30 AM PTFUADULT4, Provider: Gogo Montgomery, Status: Pen, Time: 11:30 AM [facility] Work [facility]: Start: 04-15-2022 PTFUADULT4, Provider: Gogo Montgomery, Status: Pen, Time: 11:30 AM PTFUADULT4, Provider: Gogo Montgomery, Status: Pen, Time: 11:30 AM [facility] Work Phone: Start: 04-08-2022 AQUATICFU4, Provider: Alyssa Cintron, Status: Pen, Time: 11:30 AM AQUATICFU4, Provider: Alyssa Cintron, Status: Pen, Time: 11:30 AM [facility] Work [facility]: Start: 04-03-2022 AQUATICFU4, Provider: Alyssa Cintron, Status: Pen, Time: 11:30 AM AQUATICFU4, Provider: Alyssa Cintron, Status: Pen, Time: 11:30 AM [facility] Work Phone: Start: 04-01-2022 AQUATICFU4, Provider: Amparo Haines, Status: Pen, Time: 1:15 PM AQUATICFU4, Provider: Amparo Haines, Status: Pen, Time: 1:15 PM [facility] Start: 03-27-2022 AQUATICFU4, Provider: Amparo Haines, Status: Pen, Time: 1:15 PM AQUATICFU4, Provider: Amparo Haines, Status: Pen, Time: 1:15 PM [facility] Start: 03-25-2022 AQUATICFU4, Provider: Alyssa Cintron, Status: Pen, Time: 11:30 AM AQUATICFU4, Provider: Alyssa Cintron, Status: Pen, Time: 11:30 AM [facility] Work Phone: Start: 01-16-2022 Influenza vaccination INFLUENZA (#1) [facility] Start: 12-19-2021 COVID-19 VACCINE (5 - Booster for Moderna series) COVID-19 VACCINE (5 - Booster for Moderna series) [facility] Start: 10-14-2021 COVID-19 VACCINE (5 - Booster for Moderna series) COVID-19 VACCINE (5 - Booster for Moderna series) [facility] Start: 09-11-2021 End: 09-11-2021 Patient encounter procedure Appointment [facility] Work Phone: Start: 08-21-2021 End: 08-21-2021 Patient encounter procedure Appointment [facility] Work Phone: Start: 08-01-2021 Mammography MAMMOGRAM [facility] Start: 05-18-2021 DEPRESSION ASSESSMENT DEPRESSION ASSESSMENT [facility] Start: 07-14-2018 FECAL OCCULT BLOOD FECAL OCCULT BLOOD [facility] Start: 09-16-2007 COLOGUARD (FIT-DNA) COLOGUARD (FIT-DNA) [facility] Start: 09-16-[address] COLONOGRAPHY [facility] Start: 09-16-2007 SIGMOIDOSCOPY SIGMOIDOSCOPY [facility] Start: 1992 Zoledronic acid therapy ALPHA-1 ANTITRYPSIN DEFICIENCY SCREENING [facility] End: 09-12-2023 RASHAD SCREENING RASHAD SCREENING Radiology Routine Encounter for screening mammogram for breast cancer 1 Occurrences starting 08/13/2022 until 09/12/2023 [facility] Work Phone: Immunizations Immunization Date Immunization Notes Care Provider Jabari hines 08-19-2021 COVID-19 vaccine, booster dose (MODERNA) Alis Cota MD Work Phone: [facility] 01-31-2021 influenza, injectabl e, quadrivalent, preservative free Alis Cota MD Work Phone: [facility] 01-31-2021 influenza, seasonal, injectable Alis Cota MD Work Phone: [facility] 07-06-2020 COVID-19 vaccine, fu ll dose (MODERNA) Alis Cota MD Work Phone: [facility] 06-08-2020 COVID-19 vaccine, fu ll dose (MODERNA) Alis Cota MD Work Phone: [facility] 01-24-2020 influenza, injectabl e, quadrivalent, preservative free Alis Cota MD Work Phone: [facility] Work Phone: 03-03-2019 influenza, injectabl e, quadrivalent, contains preservative Alis Cota MD Work Phone: [facility] 01-28-2019 pneumococcal conjuga te vaccine, 13 valent Alis Cota MD Work Phone: [facility] 03-05-2018 zoster vaccine recombinant Alis Cota MD Work Phone: [facility] 03-01-2018 influenza, seasonal, injectable Alis Cota MD Work Phone: [facility] Work Phone: 02-15-2018 influenza, injectabl e, quadrivalent, preservative free Alis Cota MD Work Phone: [facility] 01-01-2018 zoster vaccine recombinant Alis Cota MD Work Phone: [facility] Work Phone: 02-12-2017 influenza, injectabl e, quadrivalent, preservative free Alis Cota MD Work Phone: [facility] 02-12-2017 influenza, seasonal, injectable Alis Cota MD Work Phone: [facility] 02-28-2016 influenza, injectabl e, quadrivalent, contains preservative Alis Cota MD Work Phone: [facility] Work Phone: 02-28-2016 pneumococcal polysaccharide vaccine, 23 valent Alis Cota MD Work Phone: [facility] Work Phone: 07-27-2014 pneumococcal polysaccharide vaccine, 23 vallinn Cota MD Work Phone: [facility] 07-27-2014 tetanus toxoid, redu iqra diphtheria toxoid, and acellular pertussis vaccine, adsorbed Alis Cota MD Work Phone: [facility] 03-01-2013 influenza virus vacc ine, unspecified formulation Alis Cota MD Work Phone: [facility] Work Phone: Payers Date Payer Category Payer Medicare [employer] AARP MEDICAR [facility] AAR MEDICARE O [id number] 2021-Present [phone] [address] [address] [place] [address] O [id number] [facility] AARP [address] E [facility] AAR MEDICARE O [id number] 2021-Present [phone] [address] [address] [place] [address] HMO [id number] 2021 Medicare [id number] 2020 Medicaid [id number] 2020 Medicare [id number] 2018 Unknown 1962 Unknown [id number] 1960 Unknown [id number] 1960 Unknown [id number] 1960 Unknown [id number] [id number] 1960 Unknown [id number] 1960 Unknown [id number] 1960 Unknown [id number] [id number] 1960 Unknown [id number] 1960 Unknown [id number] [id number] 1960 Unknown [id number] [id number] 1960 Unknown [id number] 1960 Unknown [id number] Unknown [id number] Unknown [id number] Social History Date Type Detail Facility Assertion Tobacco smoking consumption unknown (finding) [facility] Work Phone: Start: 08-21-2021 End: 08-21-2021 Assertion Unknown if ever smoked [facility] Work Phone: Start: 06-08-2012 End: 06-07-2018 Tobacco smoking status NHIS Ex-smoker [facility] Work Phone: Start: 09-16-1971 End: 05-18-2008 History of tobacco use Current smoker [facility] Work Phone: Start: 09-16-1971 End: 05-18-2008 History of tobacco use Cigarette Smoker [facility] Work Phone: Start: 06-08-2012 End: 06-07-2018 Cigarettes smoked current (pack per day) - Reported 0.5 [facility] Start: 06-08-2012 End: 06-07-2018 Tobacco use and exposure Smokeless tobacco non-user [facility] Work Phone: Start: 05-22-2021 Alcohol intake Current non-drinker of alcohol (finding) [facility] Start: 04-18-2020 End: 04-17-2021 History SDOH Alcohol Frequency 1 [facility] Start: 09-29-2019 End: 04-12-2020 History SDOH Social Connections Phone 5 [facility] Start: 04-03-2019 History SDOH Social Connections Living 6 [facility] Start: 04-03-2019 History SDOH Physical Activity DPW 0 [facility] Start: 04-03-2019 End: 04-17-2021 History SDOH Transport Med 2 [facility] Start: 04-12-2020 Education 10 [facility] Start: 06-07-2018 Tobacco Comment Multiple smokers in childhood and adult homes. [facility] Start: 1960 Sex Assigned At Female [facility] Start: 02-02-2022 End: 02-12-2022 Exposure to SARS-CoV-2 (event) Not sure [facility] Medical Equipment Procedure Code Equipment Code Equipment Original Text Equipment Identifier Dates Stent Wallstent Unistep Plus 18mm 10fr 100cm Metal 60mm 75cm Endoprosthesis - [id number] Start: 03-10-2018 Functional Status Date Assessment Result Facility NEGATED: Highlighted row Functional performance Functional status health issues are not documented Disease [facility] Work Phone: Mental Status Date Assessment Result Facility NEGATED: Highlighted row Cognitive function [Interpretation] Cognitive status health issues are not documented Disease [facility] Work Phone: Clinical Notes 02-03-2019 to 02-17-2023 Celina Ellington DO - 05/20/2022 10:46 AM Emily Singh - 10/10/2021 5:13 PM EDT Note Date & Type Note Facility 02-17-2023 Note HNO ID: [id number] Author: Celina Ellington DO Service: Vascular Surgery Author Type: Physician Type: Progress Notes Filed: 02/18/2023 4:49 PM Note Text: NAME: JULIA PATI[facility]O [facility] NO: [id number] DATE OF SERVICE: 02/17/2023 Subjective: Julia is here to follow up on Luis's, status post iliac vein stenting. Overall, she is doing extremely well. She has been losing weight. She is on Ozempic. She is no longer needing a walker for walking. They are working her up for a potential thyroid mass, but overall she is doing excellent. Objective: Her vital signs are stable. She is in no distress. She has no significant lower extremity edema. Her stent is patent without significant stenosis. Assessment/Plan: Luis, status post iliac vein stenting. Recommend that Julia continue her current regimen, continue walking and exercise, and recommend that she follow up with me in one year, or sooner with any concerns. Celina Ellington D.O. KB/089 Audio #: [id number] Date Dictated: 02/17/2023 07:16:48 Date Typed: 02/18/2023 09:00:17 Date Revised: [facility] 02-17-2023 Note HNO ID: [id number] Author: Celina Ellington, DO Service: ? Author Type: Physician Type: Progress Notes Filed: 02/17/2023 9:09 AM Note Text: This office note has been dictated. Celina Ellington DO [facility] 08-13-2022 Note Patient Outreach (IN [facility]) RYANJULIA WATSON ([id number]) 1960 F Date Time Provider Department 08/13/22 ALIS COTA During your visit today, we recorded the following information about you: Allergies As of Date: 08/13/2022 Noted Allergy Reaction LAGUNA 06/08/2012 7 - Swelling 10 - Anaphylaxis GABAPENTIN 10/14/2017 7 - Swelling Comments: Throat swelling. CIPROFLOXACIN 12/17/2015 14 - Other: See Comments Comments: Chest tightness. Resolved after Rx stopped before end of Rx. DUST 06/08/2012 7 - Swelling INSECT PARTS 03/26/2016 7 - Swelling 12 - Shortness of Breath 17 - Myalgia Comments: Pt not sure what bit her but developed redness,difficulty swallowing and swelling of face and neck MORPHINE 06/08/2012 11 - Vomiting POLLEN 06/08/2012 7 - Swelling ALENDRONATE 06/03/2019 14 - Other: See Comments Comments: Nausea and abdominal pain Date Reviewed: 05/20/2022 Reviewed by: Brandy Jarvis, OLIVER - Fully Assessed Visit Diagnosis:Encounter for screening mammogram for breast cancer [Z12.31] Order(s):[facility] SCREENING [[id number]] Order #: [id number] FUTURE Prescriptions as of 08/18/2022 - calcium Carbonate 300 mg, 750mg, (TUMS) 300 mg (750 mg) chewable tablet Take 1 tablet by mouth once daily. - BREZTRI AEROSPHERE 160-9-4.8 mcg/actuation HFA aerosol inhaler INHALE 2 PUFFS BY MOUTH TWICE DAILY FOR 90 DAYS - midodrine (PROAMATINE) 10 mg tablet Take by mouth. - atorvastatin (LIPITOR) 40 mg tablet Take 40 mg by mouth. - rivaroxaban (XARELTO) 20 mg tablet Take 1 tablet by mouth once daily. - iron polysaccharide complex (FERREX 150) 150 mg iron capsule Take 1 capsule by mouth twice daily. - levothyroxine (SYNTHROID) 75 mcg tablet Take 1 tablet by mouth once daily. Take on empty stomach. For thyroid. - loperamide (IMODIUM) 2 mg cap(s) Take 2 tablets with first loose stool. Take an additional one with each loose stool for a maximum of 6 in a day. - pantoprazole DR (PROTONIX) 40 mg tablet Take 1 tablet by mouth twice daily. Take on empty stomach, 1/2 hr before meal. - dicyclomine (BENTYL) 20 mg tablet Take 1 tablet by mouth three times daily. - cholecalciferol (VITAMIN D-3) 5,000 unit tab Take 1 tablet by mouth once daily. - cyanocobalamin (VITAMIN B-12) 1,000 mcg tab Take 1 tablet by mouth once daily. - HYDROcodone-Acetaminophen 5-300 mg tab Take 1 tablet by mouth every 8 hours as needed for pain. Unsure of dose Takes twice a day - EPINEPHrine (EPIPEN) 0.3 mg/0.3 mL auto-injector Inject 0.3 mL intramuscularly as needed. - SUMAtriptan (IMITREX) 100 mg tablet One table by mouth with onset of headache. Can repeat in and hour but only 2 tabs in 24 hrs. - albuterol HFA (PROVENTIL HFA, VENTOLIN HFA) 90 mcg/actuation inhaler Inhale 2 Puffs as instructed every 6 hours as needed. - pregabalin (LYRICA) 150 mg capsule Take 150 mg by mouth twice daily. - aspirin, enteric coated (ASPIR-LOW) 81 mg EC tablet Take 1 tablet by mouth once daily. - dibucaine (NUPERCAINAL) 1 % ointment Apply to the anus as needed before and following a bowel movement to decrease pain. - CPAP - loratadine 5 mg ODT Take by mouth. - montelukast (SINGULAIR) 10 mg tablet Take 1 tablet by mouth daily at bedtime. Per director of cardiac rehabilitation - COMPOUNDED PRESCRIPTION One rollator walker with wheels, hand brakes and seat bench, Dx: M51.27, M54.16, M54.42, Z91.81 and R26.89 Meds Comments as of 03/17/2018: Allergy shots - Problem List As Of Date 08/13/2022 Noted Resolved Migraine without aura and without status migrai* Acquired hypothyroidism [E03.9] 06/03/2015 Encounter for screening for diabetes mellitus [*11/02/2015 04/23/2018 Encounter for screening for cardiovascular diso*11/02/2015 04/23/2018 Encounter for gynecological examination without*01/03/2016 04/23/2018 Chronic obstructive pulmonary disease (HCC) [J4*01/03/2016 Hemorrhoids, internal, with bleeding [K64.8] 04/17/2016 Well adult exam [Z00.00] 01/06/2017 04/19/2021 Chronic bilateral low back pain with bilateral *10/08/2017 Radiculopathy, lumbar region [M54.16] 10/15/2017 Lumbago-sciatica due to displacement of lumbar *10/15/2017 Ex-smoker [Z87.891] 10/19/2017 Lung nodule [R91.1] 10/19/2017 Mild persistent asthma without complication [J4*02/25/2018 May-Thurner syndrome [I87.1] 03/10/2018 Primary osteoarthritis of both first carpometac*04/06/2018 Iliac vein stenosis, 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 (more content not included)... [facility] 05-20-2022 Note HNO ID: [id number] Author: Celina Ellington DO Service: Vascular Surgery Author Type: Physician Type: Progress Notes Filed: 05/29/2022 12:13 PM Note Text: NAME: JULIA PATIÑO [facility] NO: [id number] DATE OF SERVICE: 05/20/2022 Subjective: Julia is here to follow up on history of May-Thurner and iliac vein stenting. Since our last visit, she did have a partial amputation of her left middle finger due to what sounds like Raynaud's or vasospasm. Overall, she has noticed just improvement in her overall quality of life. She said over the past year, though, she did have six surgeries including repeat back surgery, which is now able to walk with a cane rather than a walker. Objective: Her vital signs are stable. She is in no distress. She has no significant lower extremity edema. Reviewed her visceral vein study and her stent is patent without significant stenosis. Assessment/Plan: Luis. Recommend that Julia continue elevating and exercise as needed and compression as needed, and will follow up with us in a year, or sooner with any concerns. Jersey Elliott/089 Audio #: [id number] Date Dictated: 05/20/2022 11:47:13 Date Typed: 05/21/2022 08:58:13 Date Revised: [facility] 05-20-2022 Note HNO ID: [id number] Author: Celina Ellington DO Service: ? Author Type: Physician Type: Progress Notes Filed: 05/20/2022 12:55 PM Note Text: This office note has been dictated. Celina Ellington DO' [facility] 05-20-2022 History of Present illness Narrative This office note has been dictated. Celina Ellington DO' documented in this encounter [facility] 01-28-2022 History of Present illness Narrative S/P lumbar fusion done 01/28/22. The patient had been a previous patient here for her LB after a previous lumbar surgery. Per the patient post surgical precautions involving push/pull/lifting/bending/twistin g were for 1mth only. Physical findings include reduced trunk ROM and core strength. Will continue with gradual trunk ROM and core work as shobha. Gait/balance activities can also be performed PRN. The pool environment will be considered when post-surg healing allows. The patient will be a moderate fall risk.The patient did request to lie down due to LBP with sitting during the HX session of the eval.The patient has requested to begin clinic therapy after 03/19 for family and financial reasons.Clinical Presentation: Stable and/or uncomplicated characteristics.Level of Complexity: lowProblem List: activity limitations, ADLs/IADLs/self care skills, balance, decreased functional level, decreased knowledge of HEP, decreased knowledge of precautions, fall risk, gait/locomotion, pain, range of motion/joint mobility, strength and transfers. [facility] Work Phone: 01-28-2022 Reason for visit Narrative Initial Evaluation . back pain-S/P fusion done 01/28/22.Referred by: [facility] Work Phone: 10-10-2021 History of Present illness Narrative POPULATION HEALTH NAVIGATION OUTREACH Action/FYI Working on COPD_CKD_PCP outreach spoke with patient said she goes to [place] to a geriatric doctor for her primary care as she was unable to get in with Dr. Cota on a regualr basis. Pt identified by name and : YES, via phone Outreach Outcome/Action Spoke to patient or caregiver: Patient declined Reason for Outreach Care Gap or Scheduling/Wellness visits Payer: Payor: [facility] MEDICARE / Plan: [facility] MEDICARE HMO / Product Type: HMO / Care Gap Reviewed:: COPD_CKD_PCP Reminder: Reminder note to check Health Maintenance for items below Health Maintenance items due: PNEUMOCOCCAL(1 - PCV) Never done MAMMOGRAM due on 08/01/2021 Message Sent to Practice: No Navigation Signature: Herlinda Singh October 10, 2021 5:14 PM documented in this encounter [facility] 04-18-2021 Note HNO ID: [id number] Author: Shira Priest MD Service: ? Author Type: Physician Type: Progress Notes Filed: 04/18/2021 11:58 AM Note Text: SURGICAL SERVICES HISTORY AND PHYSICAL EXAMINATION SERVICE DATE: 04/18/2021 SERVICE TIME: 11:24 AM PRIMARY CARE PHYSICIAN: Alis Cota MD SUBJECTIVE CHIEF COMPLAINT: Abdominal pain HISTORY OF PRESENT ILLNESS: Ms. Patiño is a 60 year old female with a PMH of arthritis, asthma/COPD (3 inhalers), chronic back pain, HLD, BASILIO on CPAP, obesity (BMI 42.10), hypothyroidism, osteoporosis, GERD (Protonix 40 BID), LE edema (HCTZ), iron-deficiency anemia, lung nodules (followed by pulmonology), Raynaud's disease (Plaquenil) who presents in follow up after workup for multiple abdominal complaints via referral from Dr. Greco. Today the patient reports mild improvement in constipation and is now having a BM every other day. She endorses improvement in emesis since she is not as constipated (in the past she experienced emesis when straining). She continues on BID Protonix with continued symptoms of GERD. She has lost 11 pounds since her last visit. She did not fill out the bariatric seminar as she states she does not have a computer. At her last visit I had recommended a Smart Pill study and limiting narcotic use. We also discussed weight loss and she was referred to Dr. Fitzpatrick. Workup: - UGI: small hiatal hernia; gastroesophageal reflux - Smart Pill results: normal gastric transit, normal small bowel transit. Unable to determine complete colonic transit data due to data loss. Please see my previous clinic note for her history: starting 3.5 years ago she began to experience symptoms of severe GERD which then progressed to nausea and emesis. Over the last few years her symptoms of reflux have worsened - she endorses a constant burning feels like my throat is on fire sensation despite remaining on Protonix 40 mg BID. She also endorses intermittent regurgitation of acid/foam and food. At night she wakes up with foam in her mouth. She also endorses sensation of abdominal bloating which occurs at least twice weekly and continues until she has a bowel movement. She endorses emesis which occurs twice or three times weekly and occurs only when she is having a bowel movement. Bowel movements are solid/soft and occur daily. When she has bowel movements she notices a bulge to the right of her umbilicus. She also endorses discomfort of the umbilicus ? She recently underwent CT scan (11/01/20) which demonstrated a small umbilical hernia and a small epigastric hernia. EGD and colonoscopy demonstrated no abnormalities aside from focal active gastritis with erosions. ? Pathology from recent EGD and colonoscopy demonstrated: 1. Jejunum, biopsy (A) - Small bowel mucosa with no diagnostic alteration. - No evidence of celiac disease. 2. Duodenum, biopsy (B) - Duodenal mucosa with no diagnostic alteration. - No evidence of celiac disease. 3. Stomach, antrum, biopsy (C) - Gastric antral mucosa with no diagnostic alteration. - Negative for H. pylori organisms 4. Esophagus, distal, biopsy (D) - Esophageal squamous and inflamed gastric cardia-type mucosa, compatible with reflux esophagitis. - Negative for intestinal metaplasia. 5. Esophagus, mid, biopsy (E) - Esophageal squamous mucosa with no diagnostic alteration. - No evidence of eosinophilic esophagitis. 6. Colon, random, biopsy (F) - Colonic mucosa with no diagnostic alteration. 7. Colon, rectosigmoid, biopsy (G) - Colonic mucosa with no diagnostic alteration. ? Social: former smoker. Quit smoking 12.5 years ago. She denies use of Etoh, or illicit drugs. ? PSHx: Lap appendectomy, Lap CCx, hemorrhoidectomy, , KENNEDY, common iliac stent (for aneurysm) PAST MEDICAL HISTORY: PAST MEDICAL HISTORY Diagnosis Date - Acquired hypothyroidism 06/03/2015 - Acute colitis 02/03/2019 - Age-related osteoporosis without current pathological fracture 04/25/2019 - Allergic rhinitis Childhood. 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 Garrett - Lung nodules CTA done 10/08/2017, serially stable through 04/30/[address] Garrett. - May-Thurner syndrome 03/10/2018 - Migraine without aura (more content not included)... [facility] 02-12-2021 Note HNO ID: [id number] Author: Tarah Ramirez RN Service: ? Author Type: Nurse Clinician Type: Progress Notes Filed: 02/12/2021 11:49 AM Note Text: Patient given written information about upper GI x-ray and the prep instructions. I verbally discussed and reviewed the information with the patient. All of patient's questions were answered. I gave the patient written info on the Smart Pill and verbally reviewed the procedure and the prep instructions including: ~Discontinuing Protonix starting 5 days before. ~Patient was instructed she may restart her proton pump inhibitor/H2 nathalie the day after the SmartPill ingestion ~Patient was instructed no Bentyl, enemas, antidiarrhea medications or suppositories starting 5 days before or after the Smart Pill ~Patient was instructed no ETOH for 24 hours before the test. ~Patient was instructed to be NPO after midnight on the night before ~Patient was instructed she may take her Inez as directed. ~Patient was instructed she may take Colace once a day before and after the test. Patient agreed to the plan. All of patient's questions were answered. Tarah Ramirez RN [facility] 02-12-2021 Note HNO ID: [id number] Author: Shria Priest MD Service: ? Author Type: Physician Type: Progress Notes Filed: 02/12/2021 11:49 AM Note Text: SURGICAL SERVICES HISTORY AND PHYSICAL EXAMINATION SERVICE DATE: 02/12/2021 SERVICE TIME: 10:43 AM PRIMARY CARE PHYSICIAN: Alis Cota MD SUBJECTIVE CHIEF COMPLAINT: Abdominal pain HISTORY OF PRESENT ILLNESS: Ms. Patiño is a 60 year old female with a PMH of arthritis, asthma/COPD (3 inhalers), chronic back pain, HLD, BASILIO on CPAP, obesity (BMI 43.35), hypothyroidism, osteoporosis, GERD (Protonix 40 BID), LE edema (HCTZ), iron-deficiency anemia, lung nodules (followed by pulmonology), Raynaud's disease (Plaquenil) who presents for evaluation of multiple abdominal complaints via referral from Dr. Greco. Julia states that starting 3.5 years ago she began to experience symptoms of severe GERD which then progressed to nausea and emesis. Over the last few years her symptoms of reflux have worsened - she endorses a constant burning feels like my throat is on fire sensation despite remaining on Protonix 40 mg BID. She also endorses intermittent regurgitation of acid/foam and food. At night she wakes up with foam in her mouth. She also endorses sensation of abdominal bloating which occurs at least twice weekly and continues until she has a bowel movement. She endorses emesis which occurs twice or three times weekly and occurs only when she is having a bowel movement. Bowel movements are solid/soft and occur daily. When she has bowel movements she notices a bulge to the right of her umbilicus. She also endorses discomfort of the umbilicus She recently underwent CT scan (11/01/20) which demonstrated a small umbilical hernia and a small epigastric hernia. EGD and colonoscopy demonstrated no abnormalities aside from focal active gastritis with erosions. Pathology from recent EGD and colonoscopy demonstrated: 1. Jejunum, biopsy (A) - Small bowel mucosa with no diagnostic alteration. - No evidence of celiac disease. 2. Duodenum, biopsy (B) - Duodenal mucosa with no diagnostic alteration. - No evidence of celiac disease. 3. Stomach, antrum, biopsy (C) - Gastric antral mucosa with no diagnostic alteration. - Negative for H. pylori organisms on routine stain. 4. Esophagus, distal, biopsy (D) - Esophageal squamous and inflamed gastric cardia-type mucosa, compatible with reflux esophagitis. - Negative for intestinal metaplasia. 5. Esophagus, mid, biopsy (E) - Esophageal squamous mucosa with no diagnostic alteration. - No evidence of eosinophilic esophagitis. 6. Colon, random, biopsy (F) - Colonic mucosa with no diagnostic alteration. 7. Colon, rectosigmoid, biopsy (G) - Colonic mucosa with no diagnostic alteration. Social: former smoker. Quit smoking 12.5 years ago. She denies use of Etoh, or illicit drugs. PSHx: Lap appendectomy, Lap CCx, hemorrhoidectomy, , KENNEDY, common iliac stent (for aneurysm) PAST MEDICAL HISTORY: PAST MEDICAL HISTORY Diagnosis Date - Acquired hypothyroidism 06/03/2015 - Acute colitis 02/03/2019 - Age-related osteoporosis without current pathological fracture 04/25/2019 - Allergic rhinitis Childhood. 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 Garrett - Lung nodules CTA done 10/08/2017, serially stable through 04/30/[address] Garrett. 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 [facility] documented as of this encounter (statuses as of 09/09/2021) [facility] History of Past illness Narrative* Problem Noted Date Resolved Date Hypotension due to hypovolemia 02/03/2019 0 02/05/2019 Last Assessment & Plan: Assessment: No lactic acidosis. PLAN: Dx: ICU monitoring Rx: Balanced crystalloid. No indication for PRBC. Well adult exam 01/06/2017 04/19/2021 Overview: last done: 04/18/2020 Encounter for gynecological examination without abnormal finding 01/03/2016 04/23/2018 Overview: Needs set up with OPHTHALMIC SURGEON appt in 11/2016 Encounter for screening for diabetes mellitus 04/23/2018 Encounter for screening for cardiovascular disor ders 11/02/2015 04/23/2018 documented as of this encounter (statuses as of 10/10/2021) [facility] History of Past illness Narrative* Problem Noted Date Resolved Date Hypotension due to hypovolemia 02/03/2019 0 02/05/2019 Last Assessment & Plan: Assessment: No lactic acidosis. PLAN: Dx: ICU monitoring Rx: Balanced crystalloid. No indication for PRBC. Well adult exam 01/06/2017 04/19/2021 Overview: last done: 04/18/2020 Encounter for gynecological examination without abnormal finding 01/03/2016 04/23/2018 Overview: Needs set up with OPHTHALMIC SURGEON appt in 11/2016 Encounter for screening for diabetes mellitus 04/23/2018 Encounter for screening for cardiovascular disor ders 11/02/2015 04/23/2018 documented as of this encounter (statuses as of 04/07/2022) [facility] History of Past illness Narrative* Problem Noted Date Resolved Date Hypotension due to hypovolemia 02/03/2019 0 02/05/2019 Last Assessment & Plan: Assessment: No lactic acidosis. PLAN: Dx: ICU monitoring Rx: Balanced crystalloid. No indication for PRBC. Well adult exam 01/06/2017 04/19/2021 Overview: last done: 04/18/2020 Encounter for gynecological examination without abnormal finding 01/03/2016 04/23/2018 Overview: Needs set up with OPHTHALMIC SURGEON appt in 11/2016 Encounter for screening for diabetes mellitus 04/23/2018 Encounter for screening for cardiovascular disor ders 11/02/2015 04/23/2018 documented as of this encounter (statuses as of 05/22/2022) [facility] History of Past illness Narrative* Problem Noted Date Resolved Date Hypotension due to hypovolemia 02/03/2019 0 02/05/2019 Last Assessment & Plan: Assessment: No lactic acidosis. PLAN: Dx: ICU monitoring Rx: Balanced crystalloid. No indication for PRBC. Well adult exam 01/06/2017 04/19/2021 Overview: last done: 04/18/2020 Encounter for gynecological examination without abnormal finding 01/03/2016 04/23/2018 Overview: Needs set up with OPHTHALMIC SURGEON appt in 11/2016 Encounter for screening for diabetes mellitus 04/23/2018 Encounter for screening for cardiovascular disor ders 11/02/2015 04/23/2018 documented as of this encounter (statuses as of 08/18/2022) [facility] may be information available, but it has not been provided by the sender.[facility] Work Phone: Evaluation note* Diagnosis Encounter for screening mammogram for breast cancer [facility] Diagnosis May-Thurner syndrome- Primary Compression of vein [facility] Diagnosis May-Thurner syndrome- Primary Compression of vein [facility] Diagnosis Encounter for screening mammogram for breast cancer [facility]* Ms. Patiño arrives to outpatient PT with s/s consistent with c/o LBP with radicular symptoms. Pt pre sents with the following impairments: weakness of core, BLE weakness, limited lumbar mobility, tightness of lumbopelvic region. These impairments contribute to difficulty in activity limitations and participation restrictions including household duties, ADLs, standing, stairs. The pt will benefit from skilled PT services to address the above stated impairments and functional limitations to maximize participation and ease in household, social related activities. The pt has a good prognosis when considering positive factors including age, motivation, family support with barriers such as chronicity of symptoms. The pt verbalized understanding and agreement to goals and POC. Thank you for this referral and please call [phone] with any questions or concerns. * Clinical Presentation: Stable and/or uncomplicated characteristics. * Level of Complexity: low * Problem List: activity limitations, ADLs/IADLs/self care skills, decreased functional level, decreased knowledge of HEP, flexibility, pain, participation restrictions, range of motion/joint mobility and strength. [facility] Work Phone: History of Present illness NarrativePatient orientated to pool. Patient tolerated treatment with increased back pain. Patient needing one UE support with LE ther-ex and no support with 100% unloading. Patient has good form/understanding with ther-ex, once shown. Continue with core stability while performing dyn activity to decrease back pain. [facility] Work Phone: History of Present illness NarrativePatient orientated to pool. Patient tolerated treatment with increased back pain. Patient needing one UE support with LE ther-ex and no support with 100% unloading. Patient has good form/understanding with ther-ex, once shown. Continue with core stability while performing dyn activity to decrease back pain. [facility] Work Phone: History of Present illness NarrativePatient tolerated treatment without increased pain. Patient has Fair TrA and keeps intact with ther-ex. Patient needing one UE support with LE ther-ex and no nupport with 100% unloading. Patient has good form/understanding with ther-ex and keeps body in good alignment. Continue with core stability while performing dyn activity to decrease back pain. [facility] Work Phone: Instructions* Instruction Description Start Date Completed [facility] Work Phone: Reason for referral (narrative)* Diagnostic Procedure Only (Routine) - Pending Review Specialty Diagnoses / Procedures Referred By Milana alexander Referred To Contact [facility] Diagnoses Encounter for screening mammogram for breast cancer Procedures RASHAD SCREENING SCREENING MAMMOGRAPHY BI 2-VIEW BREAST INC CAD Alis Cota MD [facility] [place] [address] [facility] [address] [place] [phone] Referral ID Status Reason Start Date Expiration Date Visits Requested Visits Authorized [id number] Pending Review Auto-Generat ed Referral 09/04/2021 10/04/2022 1 1 [facility] for referral (narrative)* Outpatient Procedure (Routine) - Pending Review Specialty Diagnoses / Procedures Referred By Milana alexander [facility] Diagnoses May-Thurner syndrome Procedures US VISCERAL VEIN COMPLETE VAS LAB DUP-SCAN ARTL SUZI ABDL/PEL/SCROT&/RPR ORGN COM Celina Ellington DO [address] [place] [address] [facility] [address] [address] Referral ID Status Reason Start Date Expiration Date Visits Requested Visits Authorized [id number] Pending Review Auto-Generat ed Referral 2 02/12/2023 1 1 [facility] for referral (narrative)* Outpatient Procedure (Routine) - Authorized Specialty Diagnoses / Procedures Referred By Milana alexander Ref[facility] Diagnoses May-Thurner syndrome Procedures US VISCERAL VEIN COMPLETE VAS LAB DUP-SCAN ARTL SUZI ABDL/PEL/SCROT&/RPR ORGN COM Celina Ellington DO [address] [place] [address] [facility] [place] [address] [place] [id number] Referral ID Status Reason Start Date Expiration Date Visits Requested Visits Authorized [id number] Authorized Auto-Generat ed Referral 05/20/2022 05/20/2023 1 1 [facility] for referral (narrative)* Diagnostic Procedure Only (Routine) - Pending Review Specialty Diagnoses / Procedures Referred By Milana alexander Referred To Contact [facility] Diagnoses Encounter for screening mammogram for breast cancer Procedures RASHAD SCREENING SCREENING MAMMOGRAPHY BI 2-VIEW BREAST INC CAD Alis Cota MD [address] [place] [address] [facility] [address] [place] [phone] Referral ID Status Reason Start Date Expiration Date Visits Requested Visits Authorized [id number] Pending Review Auto-Generat ed Referral 08/13/2022 09/12/2023 1 1 [facility] for visit Narrative* Initial Evaluation . Dx: M54.9. 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 Advance Directive(s) Advance Directive(s) 03/01/2021 9:06 AM Advance Directive(s) 12/18/2020 10:22 AM Advance Directive(s) 11/28/2020 1:34 PM Advance Directive(s) 02/21/2019 10:04 AM Advance Directive(s) 01/24/2019 7:33 AM Advance Directive(s) 05/05/2018 11:18 AM Advance Directive(s) 04/07/2018 9:54 AM Advance Directive(s) 10/29/2017 8:44 AM Advance Directive(s) 10/13/2017 10:17 AM Advance Directive(s) 07/28/2017 7:00 AM Advance Directive(s) 07/22/2017 8:42 AM Advance Directive(s) 07/22/2017 9:31 AM Documents on File Type Date Recorded 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 Advance Directive(s) Advance Directive(s) 03/01/2021 9:06 AM Advance Directive(s) 12/18/2020 10:22 AM Advance Directive(s) 11/28/2020 1:34 PM Advance Directive(s) 02/21/2019 10:04 AM Advance Directive(s) 01/24/2019 7:33 AM Advance Directive(s) 05/05/2018 11:18 AM Advance Directive(s) 04/07/2018 9:54 AM Advance Directive(s) 10/29/2017 8:44 AM Advance Directive(s) 10/13/2017 10:17 AM Advance Directive(s) 07/28/2017 7:00 AM Advance Directive(s) 07/22/2017 8:42 AM Advance Directive(s) 07/22/2017 9:31 AM Hospital Course Note HNO ID: [id number] Author: Rajesh [place] ([place]) Service: Hospital Medicine Author Type: Physician Cannery 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 I agree with the findings and plan as documented in the note above and have edited it to reflect my findings and plan. I reviewed all the medications, vital signs, labs and imaging. Bola Dc MD Hospital Medicine Staff PAGER: [phone] DATE of Service: 02/05/2019 TIME of Service: 3:52 PM DISCHARGE SUMMARY PATIENT NAME: Julia Patiño ADMISSION DATE: 02/03/2019 DISCHARGE DATE: 02/05/2019 Attending Physician: Bola Dc Code Status: Not on file Highest Readmission Risk Score: 18 The 30 day readmissions risk score is derived from an internally validated r (more content not included)... Chief Complaint Chief Complaint Description Start Date left hand pain Preliminary chief co mplaint data, not yet signed by the author as of Additional Source Comments INFORMATION SOURCE (unrecogn ized section and content) DATE CREATED AUTHOR AUTHOR'S ORGANIZ ATION 07/27/2018 [facility] DATE CREATED AUTHOR AUTHOR'S ORGANIZ ATION 08/20/2018 [facility] DATE CREATED AUTHOR AUTHOR'S ORGANIZ ATION 02/08/2019 [facility] DATE CREATED AUTHOR AUTHOR'S ORGANIZ ATION 05/25/2020 [facility] DATE CREATED AUTHOR AUTHOR'S ORGANIZ ATION 05/21/2021 [facility] DATE CREATED AUTHOR AUTHOR'S ORGANIZ ATION 07/13/2022 [facility] DATE CREATED AUTHOR AUTHOR'S ORGANIZ ATION 09/30/2022 [facility] DATE CREATED AUTHOR AUTHOR'S ORGANIZ ATION 10/02/2022 [facility] DATE CREATED AUTHOR AUTHOR'S ORGANIZ ATION 02/21/2023 [facility] Reason for Visit (unrecogniz ed section and content) Reason Comments Established Patient Source Comments (unrecognize d section and content) In the event this informatio n is protected by the Federal Confidentiality of Alcohol and Drug Abuse Patient Records regulations: The Federal rules restrict any use of the information to criminally investigate or prosecute any alcohol or drug abuse patient.[facility] the event this information is protected by the Federal Confidentiality of Alcohol and Drug Abuse Patient Records regulations: The Federal rules restrict any use of the information to criminally investigate or prosecute any alcohol or drug abuse patient.[facility] the event this information is protected by the Federal Confidentiality of Alcohol and Drug Abuse Patient Records regulations: The Federal rules restrict any use of the information to criminally investigate or prosecute any alcohol or drug abuse patient.[facility] the event this information is protected by the Federal Confidentiality of Alcohol and Drug Abuse Patient Records regulations: The Federal rules restrict any use of the information to criminally investigate or prosecute any alcohol or drug abuse patient.[facility] the event this information is protected by the Federal Confidentiality of Alcohol and Drug Abuse Patient Records regulations: The Federal rules restrict any use of the information to criminally investigate or prosecute any alcohol or drug abuse patient.[facility] Care Teams (unrecognized sec tion and content) [employer] Relationship Specialty Start Date End Date Alis Cota MD [address] [place] [address] PCP - General Family Practice 06/22/15 [employer] Relationship Specialty Start Date End Date Alis Cota MD [address] [place] [address] PCP - General Family Medicine 06/22/15 [employer] Relationship Specialty Start Date End Date Alis Cota MD [address] [place] [address] PCP - General Family Medicine 06/22/15 [employer] Relationship Specialty Start Date End Date Alis Cota MD [address] [place] [address] PCP - General Family Medicine 06/22/15 FOR RECORDS PERTAINING TO PATIENTS WHO ARE OR HAVE BEEN ENROLLED IN A CHEMICAL DEPENDENCY/SUBSTANCEABUSE PROGRAM, SOME INFORMATION MAY BE OMITTED. This clinical summary was aggregated from multiple sources. Caution should be exercised in using it in the provision of clinical care. This summary normalizes information from multiple sources, and as a consequence, information in this document may materially change the coding, format and clinical context of patient data. In addition, data may be omitted in some cases. CLINICAL DECISIONS SHOULD BE BASED ON THE PRIMARY CLINICAL RECORDS. [facility]. provides no warranty or guarantee of the accuracy or completeness of information in this document.
[2023-06-11 09:28] VITALS: BP 93/65; PULSE 71; RESP 16; TEMP 36.5; O2SAT 95
== END 2023-06-11 08:32 | disposition home or self-care (01) ==
LOC: MEDOUTP 08:32
PROVIDERS: PCP Family Medicine Geriatric Medicine; Referring Provider Internal Medicine Endocrinology, Diabetes & Metabolism; Visit Provider Internal Medicine Endocrinology, Diabetes & Metabolism
DX: M81.0 Age-related osteoporosis without current pathological fracture (principal)
CPT/HCPCS: 96365; A4216; J3489

== ENCOUNTER → 2023-06-19 | Outpatient (CLI) | payer MEDICARE, MEDICAID, SELFPAY ==
--- NOTE | 2023-06-19 12:27 | CT_ITS ---
STUDY: CT CHEST WITH CONTRAST REASON FOR EXAM: Female, 62 years old. MONITOR MULTIPLE LUNG NODULES RADIATION DOSAGE (If Supplied By Facility): CTDIvol = ( 16.71 ) mGy, DLP = ( 675.26 ) mGycm TECHNIQUE: Transaxial imaging was performed following intravenous administration of IV 100mL Isovue-300. Multiplanar coronal and sagittal images were reformatted. Individualized dose optimization techniques were used for this CT. COMPARISON: Comparison is made with prior study dated May 21, 2022. FINDINGS: CHEST Stable small subpleural blebs in the lung apices. Stable 4 mm and 6 mm pleural-based nodules in the left upper lobe as well as 5 mm nodule. Stable benign-appearing nodules in the right upper lobe. There is no demonstrated pleural abnormality. Stable elevation of the right hemidiaphragm. There are calcifications of the coronary arteries. Small pericardial effusion. This has progressed slightly as compared to prior study. Normal mediastinum. Normal hilar regions. Normal unenhanced pulmonary arteries. Normal aorta arch and descending thoracic aorta. There are mild degenerative changes of the thoracic spine. Prior cholecystectomy. CT/Chest WITH Contrast IMPRESSION: Stable examination. 12 month follow-up recommended. Electronically Signed: Basilio Colindres MD at 14:46 EST ,
[2023-06-19 12:55] LABS: CREATININE FINGERSTICK < 1.0 mg/dL (0.55-1.02); EGFR FINGERSTICK > 60.0000 mL/min (>60)
--- OUTSIDE RECORDS SUMMARY | 2023-06-19 15:40 | XMS RPT_ITS | CCD ---
Author Name Unknown Address [address] [place] [address] Organization [facility] Care Team Providers Care Piano Case And Bench Assembler Name Role Phone No Doctor Assigned, Nodr [...] Translations: [LAGUNA] Drug Allergy 3 Swelling, Anaphylaxis [facility] Repository (8 sources) ciprofloxacin; Translations: [CIPROFLOXACIN] Drug Allergy 6 Other: See Comments [facility] Repository (8 sources) Dust; Translations: [DUST] Propensity to adverse reactions (disorder) 3 Swelling [facility] Repository (9 sources) gabapentin; Translations: [GABAPENTIN] Drug Allergy 8 Swelling [facility] Repository (9 sources) morphine; Translations: [MORPHINE] Drug Allergy 3 Vomiting [facility] Repository (8 sources) Pollen; Translations: [POLLEN] Propensity to adverse reactions (disorder) 3 Swelling [facility] Repository (7 sources) INSECT PARTS; Translations: [INSECT PARTS] Propensity to adverse reactions (disorder) 6 Swelling, Shortness of Breath, Myalgia [facility] Repository (1 source) Codeine Drug Allergy 0 makes her sick [facility] Work Phone: (1 source) House dust mite; Translations: [DUST MITES] allergy to substance 0 head congestion [facility] Work Phone: (2 sources) Latex; Translations: [LATEX] allergy to substance 1 [facility] Work Phone: (2 sources) Mold Extract; Translations: [MOLD] Drug Allergy [address] [facility] Work Phone: (1 source) Morphine Drug Allergy 0 makes her sick [facility] Work Phone: (2 sources) predniSONE; Translations: [PREDNISONE] Drug Allergy 2 rash, swelling [facility] Work Phone: (1 source) CHERRIES; Translations: [CHERRIES] food allergy 0 extreme swelling [facility] Work Phone: (1 source) STINGING INSECTS; Translations: [STINGING INSECTS] food allergy 0 Extreme swelling [facility] Work Phone: (1 source) PLANT POLLENS (HAY FEVER) drug allergy 0 head congestion [facility] Work Phone: (7 sources) Alendronate; Translations: [ALENDRONATE] Drug Allergy 0 Other: See Comments [facility] Work Phone: (1 source) Codeine; Translations: [CODEINE] Drug Allergy 0 [facility] Repository (1 source) house dust allergenic extract; Translations: [HOUSE DUST] Drug Allergy 3 [facility] Repository (1 source) Pollen; Translations: [POLLEN EXTRACTS] Propensity to adverse reactions to drug (disorder) 3 [facility] Repository (1 source) HOUSE DUST MITE; Translations: [HOUSE DUST MITE] Propensity to adverse reactions to drug (disorder) 0 [facility] Repository (1 source) INSECT VENOM; Translations: [INSECT VENOM] Propensity to adverse reactions to drug (disorder) 2 [facility] Repository Medications Current Medications Medication Drug Class(es) [...] for pain For post-op use hydrocodone-acetam inophen [id number] Vi Sanderson PA-C Problems Active Problems Problem [...] (12 sources) Patient encounter status; Translations: [Other director long term care (current) drug therapy] Onset: 06-01-2018 10-05-2019 Episodic [...] (5 sources) Drug therapy finding; Translations: [Other assisted (current) drug therapy] Onset: 10-05-2019 10-05-2019 Episodic [...] 70 mm[Hg] Celina Ellington DO Work Phone: [facility] 05-20-2022 10:00-0500 Heart rate 65 /min Celina Ellington DO Work Phone: [facility] 05-20-2022 10:00-0500 SaO2% (BldA) [Mass fraction] 95 % Celina Ellington DO Work Phone: [facility] 05-20-2022 10:00-0500 Systolic blood pressure 110 mm[Hg] Celina Ellington DO Work Phone: [facility] NEGATED: Highlighted [id number] 09:15-0400 Body height 157.48 cm Caroline Oquendo AT [facility] Work Phone: NEGATED: Highlighted [id number] 09:15-0400 Body height 157 cm Caroline Oquendo AT [facility] Work Phone: NEGATED: Highlighted [id number] 09:15-0400 Body mass index (BMI) [Ratio] 39.47 kg/m2 Caroline Oquendo AT [facility] Work Phone: NEGATED: Highlighted [id number] 09:15-0400 Body weight 97.52 kg Caroline Oquendo AT [facility] Work Phone: NEGATED: Highlighted [id number] 09:15-0400 Body weight 98 kg Caroline Jere AT [facility] Work Phone: Encounters Encounter Date Encounter Type Care Provider Facility Start: 02-17-2023 End: 02-17-2023 ambulatory CELINA ELLINGTON Facility:[facility] Start: 09-29-2022 Patient encounter procedure Alis Cota Work Phone: [facility] Work Phone: Start: 09-29-[address] Jonnie Covington is Bas[facility] Facility:[id number] Start: 09-25-[address] Jonnie Covington is [facility]ali Facility:[id number] Start: 09-22-2022 Patient encounter procedure Alis Cota Work Phone: [facility] Work Phone: Start: 09-22-[address] Jonnie Covington is [facility] Facility:[id number] Start: 09-04-[address] Jonnie Covington is [facility] Facility:[id number] Start: 09-04-2022 Patient encounter procedure Alis Cota Work Phone: [facility] Work Phone: Start: 08-13-2022 ambulatory Alis clemens MD Work Phone: Internal Medicine [facility] Start: 07-13-2022 End: 07-13-2022 Emergency department patient visit PHYSICIAN [facility] Start: 05-20-2022 End: 05-20-2022 ambulatory CELINA ELLINGTON Facility:[facility] Start: 05-20-2022 End: 05-20-2022 Patient encounter procedure Celina Ellington DO Work Phone: Vascular Surgery Procedures Date Procedure Procedure Detail Performing Clinician Start: 08-21-2021 End: 08-21-2021 Belt strap sleev grmnt cover Vi Sanderson PA-C Work Phone: Start: 08-21-2021 End: 08-21-2021 BP scrn no perf at interval Vi Manriquezr [employer] Work Phone: Start: 08-21-2021 End: 08-21-2021 Calc BMI out nrm kika nof/u Vi Holland [employer] Work Phone: Start: 08-21-2021 End: 08-21-2021 Current tobacco non-user cad cap copd pv dm Vi Holland Viridis [employer] Work Phone: Start: 08-21-2021 End: 08-21-2021 Docrev cur meds by jerry Holland [employer] Work Phone: Start: 08-21-2021 End: 08-21-2021 Osteoarthritis symptoms&funcjal status asses Vi Holland [employer] Work Phone: Start: 08-21-2021 End: 08-21-2021 Pain doc pos and plan Vi Holland [employer] Work Phone: Start: 08-21-2021 End: 08-21-2021 Patient encounter procedure Vi Sanderson [employer] Work Phone: Start: 04-18-2021 Adult depression screening assessment Alis Cota MD Work Phone: Start: 12-18-2020 Colonoscopy Alis leroy MD Work Phone: Start: 08-01-2020 Mammography Alis leroy MD Work Phone: NEGATED: Highlighted rowStart: 08-21-2021 End: 08-21-2021 Documentation of current medications Caroline Oquendo AT Plan of Treatment Date Care Activity Detail Author Start: 12-18-2030 Colonoscopy COLONOSCOPY [facility] Start: 12-18-2030 COLORECTAL CANCER SCREENING COLORECTAL CANCER SCREENING [facility] Start: 09-16-2027 PNEUMOCOCCAL (3 - PPSV23 if available, else PCV20) PNEUMOCOCCAL (3 - PPSV23 if available, else PCV20) [facility] Start: 09-16-2027 PNEUMOCOCCAL (4 - PPSV23 if available, else PCV20) PNEUMOCOCCAL (4 - PPSV23 if available, else PCV20) [facility] Start: 09-16-2027 PNEUMOCOCCAL (4 - PPSV23 or PCV20) PNEUMOCOCCAL (4 - PPSV23 or PCV20) [facility] Start: 04-08-2026 LIPID SCREEN LIPID SCREEN [facility] Start: 07-27-2024 Urine microalbumin profile DTAP,TDAP,TD (2 - Td or Tdap) [facility] Start: 04-08-2024 DIABETES SCREEN DIABETES SCREEN [facility] Start: 10-16-2022 PTRECHADPORTER, Provider: Yesi Maxwell, Status: Pen, Time: 1:30 PM PTRECHADPORTER, Provider: Yesi Maxwell, Status: Pen, Time: 1:30 PM [facility] Work [facility]: Start: 10-14-2022 AQUATICFU4, Provider: Alyssa Cintron, Status: Pen, Time: 1:00 PM AQUATICFU4, Provider: Alyssa Cintron, Status: Pen, Time: 1:00 PM [facility] Work Phone: Start: 10-09-2022 AQUATICFU4, Provider: Alyssa Cintron, Status: Pen, Time: 2:15 PM AQUATICFU4, Provider: Alyssa Cintron, Status: Pen, Time: 2:15 PM [facility] Work Phone: Start: 10-07-2022 AQUATICFU4, Provider: Alyssa Cintron, Status: Pen, Time: 1:00 PM AQUATICFU4, Provider: Alyssa Cintron, Status: Pen, Time: 1:00 PM [facility] Work Phone: Start: 10-06-2022 AQUATICFU4, Provider: Bailey Burciaga, Status: Pen, Time: 2:30 PM AQUATICFU4, Provider: Bailey Burciaga, Status: Pen, Time: 2:30 PM [facility] Work Phone: Start: 10-03-2022 AQUATICFU4, Provider: Bailey Burciaga, Status: Pen, Time: 10:45 AM AQUATICFU4, Provider: Bailey Burciaga, Status: Pen, Time: 10:45 AM [facility] Work Phone: Start: 10-02-2022 AQUATICFU4, Provider: Alyssa Cintron, Status: Pen, Time: 3:00 PM AQUATICFU4, Provider: Alyssa Cintron, Status: Pen, Time: 3:00 PM [facility] Work Phone: Start: 09-29-2022 AQUATICFU4, Provider: Bailey Burciaga, Status: Pen, Time: 3:15 PM AQUATICFU4, Provider: Bailey Burciaga, Status: Pen, Time: 3:15 PM [facility] Work Phone: Start: 09-25-2022 AQUATICFU4, Provider: Alyssa Cintron, Status: Pen, Time: 3:00 PM AQUATICFU4, Provider: Alyssa Cintron, Status: Pen, Time: 3:00 PM [facility] Work Phone: Start: 05-18-2022 DEPRESSION ASSESSMENT DEPRESSION ASSESSMENT [facility] Start: 04-23-2022 PTRECHADPORTER, Provider: Hair Servin, Status: Pen, Time: 11:15 AM PTRECHADPORTER, Provider: [employer], Status: Pen, Time: 11:15 AM [facility] Work Phone: Start: 04-19-2022 ANNUAL PCP TEAM CHRONIC DISEASE VISIT ANNUAL PCP TEAM CHRONIC DISEASE VISIT [facility] Start: 04-18-2022 Adult depression screening assessment DEPRESSION SCREENING [facility] Start: 04-17-2022 PTFUADULT4, Provider: Gogo Montgomery, Status: Pen, Time: 11:30 AM PTFUADULT4, Provider: Gogo Montgomery, Status: Pen, Time: 11:30 AM [facility] Work Phone: Start: 04-15-2022 PTFUADULT4, Provider: Gogo Montgomery, Status: Pen, Time: 11:30 AM PTFUADULT4, Provider: Gogo Montgomery, Status: Pen, Time: 11:30 AM [facility] Work Phone: Start: 04-08-2022 AQUATICFU4, Provider: Alyssa Cintron, Status: Pen, Time: 11:30 AM AQUATICFU4, Provider: Alyssa Cintron, Status: Pen, Time: 11:30 AM [facility] Work Phone: Start: 04-03-2022 AQUATICFU4, Provider: Alyssa Cintron, Status: Pen, Time: 11:30 AM AQUATICFU4, Provider: Alyssa Cintron, Status: Pen, Time: 11:30 AM [facility] Work Phone: Start: 04-01-2022 AQUATICFU4, Provider: Amparo Haines, Status: Pen, Time: 1:15 PM AQUATICFU4, Provider: Amparo Haines, Status: Pen, Time: 1:15 PM [facility] Work Phone: Start: 03-27-2022 AQUATICFU4, Provider: Amparo Haines, Status: Pen, Time: 1:15 PM AQUATICFU4, Provider: Amparo Haines, Status: Pen, Time: 1:15 PM [facility] Work Phone: Start: 03-25-2022 AQUATICFU4, Provider: Alyssa Cintron, Status: Pen, Time: 11:30 AM AQUATICFU4, Provider: Alyssa Cintron, Status: Pen, Time: 11:30 AM [facility] Work Phone: Start: 01-16-2022 Influenza vaccination INFLUENZA (#1) [facility] Start: 12-19-2021 COVID-19 VACCINE (5 - Booster for Moderna series) COVID-19 VACCINE (5 - Booster for Moderna series) [facility] Start: 10-14-2021 COVID-19 VACCINE (5 - Booster for Moderna series) COVID-19 VACCINE (5 - Booster for Moderna series) [facility] Start: 09-11-2021 End: 09-11-2021 Patient encounter procedure Appointment [facility] Work Phone: Start: 08-21-2021 End: 08-21-2021 Patient encounter procedure Appointment [facility] Work Phone: Start: 08-01-2021 Mammography MAMMOGRAM [facility] Start: 05-18-2021 DEPRESSION ASSESSMENT DEPRESSION ASSESSMENT [facility] Start: 07-14-2018 FECAL OCCULT BLOOD FECAL OCCULT BLOOD [facility] Start: 09-16-2007 COLOGUARD (FIT-DNA) COLOGUARD (FIT-DNA) [facility] Start: 09-16-[address] COLONOGRAPHY [facility] Start: 09-16-2007 SIGMOIDOSCOPY SIGMOIDOSCOPY [facility] Start: 1992 Zoledronic acid therapy ALPHA-1 ANTITRYPSIN DEFICIENCY SCREENING [facility] End: 09-12-2023 RASHAD SCREENING RASHAD SCREENING Radiology Routine Encounter for screening mammogram for breast cancer 1 Occurrences starting 08/13/2022 until 09/12/2023 [facility] Work Phone: Immunizations Immunization Date Immunization Notes Care Provider Jabari hines 08-19-2021 COVID-19 vaccine, booster dose (MODERNA) Alis Cota MD Work Phone: [facility] 01-31-2021 influenza, injectabl e, quadrivalent, preservative free Alis Cota MD Work Phone: [facility] 01-31-2021 influenza, seasonal, injectable Alis Cota MD Work Phone: [facility] 07-06-2020 COVID-19 vaccine, fu ll dose (MODERNA) Alis Cota MD Work Phone: [facility] 06-08-2020 COVID-19 vaccine, fu ll dose (MODERNA) Alis Cota MD Work Phone: [facility] 01-24-2020 influenza, injectabl e, quadrivalent, preservative free Alis Cota MD Work Phone: [facility] Work Phone: 03-03-2019 influenza, injectabl e, quadrivalent, contains preservative Alis Cota MD Work Phone: [facility] 01-28-2019 pneumococcal conjuga te vaccine, 13 valent Alis Cota MD Work Phone: [facility] 03-05-2018 zoster vaccine recombinant Alis Cota MD Work Phone: [facility] 03-01-2018 influenza, seasonal, injectable Alis Cota MD Work Phone: [facility] Work Phone: 02-15-2018 influenza, injectabl e, quadrivalent, preservative free Alis Cota MD Work Phone: [facility] 01-01-2018 zoster vaccine recombinant Alis Cota MD Work Phone: [facility] Work Phone: 02-12-2017 influenza, injectabl e, quadrivalent, preservative free Alis Cota MD Work Phone: [facility] 02-12-2017 influenza, seasonal, injectable Alis Cota MD Work Phone: [facility] 02-28-2016 influenza, injectabl e, quadrivalent, contains preservative Alis Cota MD Work Phone: [facility] Work Phone: 02-28-2016 pneumococcal polysaccharide vaccine, 23 valent Alis Cota MD Work Phone: [facility] Work Phone: 07-27-2014 pneumococcal polysaccharide vaccine, 23 vallinn Cota MD Work Phone: [facility] 07-27-2014 tetanus toxoid, redu iqra diphtheria toxoid, and acellular pertussis vaccine, adsorbed Alis Cota MD Work Phone: [facility] 03-01-2013 influenza virus vacc ine, unspecified formulation Alis Cota MD Work Phone: [facility] Work Phone: Payers Date Payer Category Payer Medicare UHC AARP MEDICAR E [facility] AAR MEDICARE O [id number] 2021-Present [phone] [address] [address] [place] [address] O [id number] 2021 Medicare [facility] AARP MEDICAR E [facility] AAR MEDICARE O [id number] 2021-Present [phone] [address] [address] [place] [address] HMO [id number] 2021 Medicare [id number] 2020 Medicaid [id number] 2020 Medicare [id number] 2018 Unknown 1960 Unknown [id number] 1960 Unknown [id number] 1960 Unknown [id number] 1960 Unknown [id number] 1960 Unknown [id number] 1960 Unknown [id number] 1960 Unknown [id number] 1962 Unknown [id number] 1962 Unknown [id number] 1962 Unknown [id number] 1960 Unknown [id number] 1960 Unknown [id number] Unknown [id number] Unknown [id number] Social History Date Type Detail Facility Assertion Tobacco smoking consumption unknown (finding) [facility] Work Phone: Start: 08-21-2021 End: 08-21-2021 Assertion Unknown if ever smoked [facility] Work Phone: Start: 06-08-2012 End: 06-07-2018 Tobacco smoking status NHIS Ex-smoker [facility] Work Phone: Start: 09-16-1971 End: 05-18-2008 History of tobacco use Current smoker [facility] Work Phone: Start: 09-16-1971 End: 05-18-2008 History of tobacco use Cigarette Smoker [facility] Work Phone: Start: 06-08-2012 End: 06-07-2018 Cigarettes smoked current (pack per day) - Reported 0.5 [facility] Start: 06-08-2012 End: 06-07-2018 Tobacco use and exposure Smokeless tobacco non-user [facility] Work Phone: Start: 05-22-2021 Alcohol intake Current non-drinker of alcohol (finding) [facility] Start: 04-18-2020 End: 04-17-2021 History SDOH Alcohol Frequency 1 [facility] Start: 09-29-2019 End: 04-12-2020 History SDOH Social Connections Phone 5 [facility] Start: 04-03-2019 History SDOH Social Connections Living 6 [facility] Start: 04-03-2019 History SDOH Physical Activity DPW 0 [facility] Start: 04-03-2019 End: 04-17-2021 History SDOH Transport Med 2 [facility] Start: 04-12-2020 Education 10 [facility] Start: 06-07-2018 Tobacco Comment Multiple smokers in childhood and adult homes. [facility] Start: 1960 Sex Assigned At Female [facility] Start: 02-02-2022 End: 02-12-2022 Exposure to SARS-CoV-2 (event) Not sure [facility] Medical Equipment Procedure Code Equipment Code Equipment Original Text Equipment Identifier Dates Stent Wallstent Unistep Plus 18mm 10fr 100cm Metal 60mm 75cm Endoprosthesis - [id number] Start: 03-10-2018 Functional Status Date Assessment Result Facility NEGATED: Highlighted row Functional performance Functional status health issues are not documented Disease [facility] Work Phone: Mental Status Date Assessment Result Facility NEGATED: Highlighted row Cognitive function [Interpretation] Cognitive status health issues are not documented Disease [facility] Work Phone: Clinical Notes 02-03-2019 to 02-17-2023 Celina Ellington DO - 05/20/2022 10:46 AM Emily Singh - 10/10/2021 5:13 PM EDT Note Date & Type Note Facility 02-17-2023 Note HNO ID: [id number] Author: Celina Ellington DO Service: Vascular Surgery Author Type: Physician Type: Progress Notes Filed: 02/18/2023 4:49 PM Note Text: NAME: JULIA PATI[facility]O [facility] NO: [id number] DATE OF SERVICE: 02/17/2023 Subjective: Julia is [...] concerns. Celina Ellington D.O. KB/089 Audio #: [id number] Date Dictated: 02/17/2023 07:16:48 Date Typed: 02/18/2023 09:00:17 Date Revised: [facility] 02-17-2023 Note HNO ID: [id number] Author: Celina Ellington, DO Service: ? Author Type: Physician Type: Progress Notes Filed: 02/17/2023 9:09 AM Note Text: This office note has been dictated. Celina Ellington DO [facility] 08-13-2022 Note Patient Outreach (IN TMMN) RYANJULIA WATSON ([id number]) 1960 F Date Time Provider Department 08/13/22 [...] for screening mammogram for breast cancer [Z12.31] Order(s):[facility] [1611588] Order #: [id number] FUTURE Prescriptions as of 08/18/2022 - calcium [...] tablet by mouth daily at bedtime. Per police inspector - COMPOUNDED PRESCRIPTION One rollator walker with [...] hypovolemia [I95.89, E86. (more content not included)... [facility] 05-20-2022 Note HNO ID: [id number] Author: Celina Ellington DO Service: Vascular Surgery Author Type: Physician Type: Progress Notes Filed: 05/29/2022 12:13 PM Note Text: NAME: JULIA PATIÑO [facility] NO: [id number] DATE OF SERVICE: 05/20/2022 Subjective: Julia is [...] with any concerns. Jersey Elliott/089 Audio #: [id number] Date Dictated: 05/20/2022 11:47:13 Date Typed: 05/21/2022 08:58:13 Date Revised: [facility] 05-20-2022 Note HNO ID: [id number] Author: Celina Ellington DO Service: ? Author Type: Physician Type: Progress Notes Filed: 05/20/2022 12:55 PM Note Text: This office note has been dictated. Celina Ellington DO' [facility] 05-20-2022 History of Present illness Narrative This office note has been dictated. Celina Ellington DO' documented in this encounter [facility] 01-28-2022 History of Present illness Narrative S/P [...] of motion/joint mobility, strength and transfers. [facility] Work Phone: 01-28-2022 Reason for visit Narrative Initial Evaluation . back pain-S/P fusion done 01/28/22.Referred by: [facility] Work Phone: 10-10-2021 History of Present illness Narrative POPULATION HEALTH NAVIGATION OUTREACH Action/FYI Working on COPD_CKD_PCP outreach spoke with patient said she goes to [place] to a geriatric doctor for her primary care as she was unable to get in with Dr. Cota on a regualr basis. Pt identified by name and : YES, via phone Outreach Outcome/Action Spoke to patient or caregiver: Patient declined Reason for Outreach Care Gap or Scheduling/Wellness visits Payer: Payor: [facility] / Plan: [facility] MEDICARE HMO / Product Type: HMO / Care Gap Reviewed:: COPD_CKD_PCP Reminder: Reminder note to check Health Maintenance for items below Health Maintenance items due: PNEUMOCOCCAL(1 - PCV) Never done MAMMOGRAM due on 08/01/2021 Message Sent to Practice: No Navigation Signature: Herlinda Singh October 10, 2021 5:14 PM documented in this encounter [facility] 04-18-2021 Note HNO ID: [id number] Author: Shira Priest MD Service: ? Author [...] Migraine without aura (more content not included)... [facility] 02-12-2021 Note HNO ID: [id number] Author: Tarah Ramirez RN Service: ? Author [...] ~Patient was instructed she may take her Hooper as directed. ~Patient was instructed she may take Colace once a day before and after the test. Patient agreed to the plan. All of patient's questions were answered. Tarah Ramirez RN [facility] 02-12-2021 Note HNO ID: [id number] Author: Shira Priest MD Service: ? Author [...] - SNGL - CHOLECYSTECTOMY 07/17/2015 Dr.Dawson Sampson [facility] (more content not included)... [facility] documented as of this encounter (statuses as of 09/09/2021) [facility] History of Past illness Narrative* Problem Noted Date Resolved Date Hypotension due to hypovolemia 02/03/2019 0 02/05/2019 Last Assessment & Plan: Assessment: No lactic acidosis. PLAN: Dx: ICU monitoring Rx: Balanced crystalloid. No indication for PRBC. Well adult exam 01/06/2017 04/19/2021 Overview: last done: 04/18/2020 Encounter for gynecological examination without abnormal finding 01/03/2016 04/23/2018 Overview: Needs set up with LEARNING SUPPORT TEACHER appt in 11/2016 Encounter for screening for diabetes mellitus 04/23/2018 Encounter for screening for cardiovascular disor ders 11/02/2015 04/23/2018 documented as of this encounter (statuses as of 10/10/2021) [facility] History of Past illness Narrative* Problem Noted Date Resolved Date Hypotension due to hypovolemia 02/03/2019 0 02/05/2019 Last Assessment & Plan: Assessment: No lactic acidosis. PLAN: Dx: ICU monitoring Rx: Balanced crystalloid. No indication for PRBC. Well adult exam 01/06/2017 04/19/2021 Overview: last done: 04/18/2020 Encounter for gynecological examination without abnormal finding 01/03/2016 04/23/2018 Overview: Needs set up with LEARNING SUPPORT TEACHER appt in 11/2016 Encounter for screening for diabetes mellitus 04/23/2018 Encounter for screening for cardiovascular disor ders 11/02/2015 04/23/2018 documented as of this encounter (statuses as of 04/07/2022) [facility] History of Past illness Narrative* Problem Noted Date Resolved Date Hypotension due to hypovolemia 02/03/2019 0 02/05/2019 Last Assessment & Plan: Assessment: No lactic acidosis. PLAN: Dx: ICU monitoring Rx: Balanced crystalloid. No indication for PRBC. Well adult exam 01/06/2017 04/19/2021 Overview: last done: 04/18/2020 Encounter for gynecological examination without abnormal finding 01/03/2016 04/23/2018 Overview: Needs set up with LEARNING SUPPORT TEACHER appt in 11/2016 Encounter for screening for diabetes mellitus 04/23/2018 Encounter for screening for cardiovascular disor ders 11/02/2015 04/23/2018 documented as of this encounter (statuses as of 05/22/2022) [facility] History of Past illness Narrative* Problem Noted Date Resolved Date Hypotension due to hypovolemia 02/03/2019 0 02/05/2019 Last Assessment & Plan: Assessment: No lactic acidosis. PLAN: Dx: ICU monitoring Rx: Balanced crystalloid. No indication for PRBC. Well adult exam 01/06/2017 04/19/2021 Overview: last done: 04/18/2020 Encounter for gynecological examination without abnormal finding 01/03/2016 04/23/2018 Overview: Needs set up with LEARNING SUPPORT TEACHER appt in 11/2016 Encounter for screening for diabetes mellitus 04/23/2018 Encounter for screening for cardiovascular disor ders 11/02/2015 04/23/2018 documented as of this encounter (statuses as of 08/18/2022) [facility] noteThere may be information available, but it has not been provided by the sender.[facility] Work Phone: Evaluation note* Diagnosis Encounter for screening mammogram for breast cancer [facility] Diagnosis May-Thurner syndrome- Primary Compression of vein [facility] Diagnosis May-Thurner syndrome- Primary Compression of vein [facility]* Diagnosis Encounter for screening mammogram for breast cancer [facility] N[facility]* Ms. Patiño arrives [...] you for this referral and please call [phone] with any questions or concerns. * Clinical Presentation: Stable and/or uncomplicated characteristics. * Level of Complexity: low * Problem List: activity limitations, ADLs/IADLs/self care skills, decreased functional level, decreased knowledge of HEP, flexibility, pain, participation restrictions, range of motion/joint mobility and strength. [facility] Work Phone: History of Present illness NarrativePatient orientated to pool. Patient tolerated treatment with increased back pain. Patient needing one UE support with LE ther-ex and no support with 100% unloading. Patient has good form/understanding with ther-ex, once shown. Continue with core stability while performing dyn activity to decrease back pain. [facility] Work Phone: History of Present illness NarrativePatient orientated to pool. Patient tolerated treatment with increased back pain. Patient needing one UE support with LE ther-ex and no support with 100% unloading. Patient has good form/understanding with ther-ex, once shown. Continue with core stability while performing dyn activity to decrease back pain. [facility] Work Phone: History of Present illness NarrativePatient tolerated treatment without increased pain. Patient has Fair TrA and keeps intact with ther-ex. Patient needing one UE support with LE ther-ex and no nupport with 100% unloading. Patient has good form/understanding with ther-ex and keeps body in good alignment. Continue with core stability while performing dyn activity to decrease back pain. [facility] Work Phone: Instructions* Instruction Description Start Date Completed [facility] Work Phone: Reason for referral (narrative)* Diagnostic Procedure Only (Routine) - Pending Review Specialty Diagnoses / Procedures Referred By Milana alexander Referred To Contact [facility] Diagnoses Encounter for screening mammogram for breast cancer Procedures RASHAD SCREENING SCREENING MAMMOGRAPHY BI 2-VIEW BREAST INC CAD Alis Cota MD [facility] [place] [address] [facility] [address] [place] [id number] Referral ID Status Reason Start Date Expiration Date Visits Requested Visits Authorized [id number] Pending Review Auto-Generat ed Referral 09/04/2021 10/04/[address] [facility] for referral (narrative)* Outpatient Procedure (Routine) - Pending Review Specialty Diagnoses / Procedures Referred By Milana alexander [facility] Diagnoses May-Thurner syndrome Procedures US VISCERAL VEIN COMPLETE VAS LAB DUP-SCAN ARTL SUZI ABDL/PEL/SCROT&/RPR ORGN COM Celina Ellington DO [address] [place] [address] [facility] [address] [address] Referral ID Status Reason Start Date Expiration Date Visits Requested Visits Authorized [id number] Pending Review Auto-Generat ed Referral 2 02/12/2023 1 1 [facility] for referral (narrative)* Outpatient Procedure (Routine) - Authorized Specialty Diagnoses / Procedures Referred By Milana alexander Ref[facility] Diagnoses May-Thurner syndrome Procedures US VISCERAL VEIN COMPLETE VAS LAB DUP-SCAN ARTL SUZI ABDL/PEL/SCROT&/RPR ORGN COM Celina Ellington DO [address] [place] [address] [facility] [place] [address] [place] [id number] Referral ID Status Reason Start Date Expiration Date Visits Requested Visits Authorized [id number] Authorized Auto-Generat ed Referral 05/20/2022 05/20/2023 1 1 [facility] for referral (narrative)* Diagnostic Procedure Only (Routine) - Pending Review Specialty Diagnoses / Procedures Referred By Milana alexander Referred To Contact [facility] Diagnoses Encounter for screening mammogram for breast cancer Procedures RASHAD SCREENING SCREENING MAMMOGRAPHY BI 2-VIEW BREAST INC CAD Alis Cota MD [address] [place] [address] [facility] [address] [place] [phone] Referral ID Status Reason Start Date Expiration Date Visits Requested Visits Authorized [id number] Pending Review Auto-Generat ed Referral 08/13/2022 09/12/2023 1 1 [facility] for visit Narrative* Initial Evaluation . 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 I agree with the findings and plan as documented in the note above and have edited it to reflect my findings and plan. I reviewed all the medications, vital signs, labs and imaging. Bola Dc MD Hospital Medicine Staff PAGER: [phone] DATE of Service: 02/05/2019 TIME of Service: [...] DATE CREATED AUTHOR AUTHOR'S ORGANIZ ATION 07/27/2018 [facility] DATE CREATED AUTHOR AUTHOR'S ORGANIZ ATION 08/20/2018 [facility] DATE CREATED AUTHOR AUTHOR'S ORGANIZ ATION 02/08/2019 [facility] DATE CREATED AUTHOR AUTHOR'S ORGANIZ ATION 05/25/2020 [facility] DATE CREATED AUTHOR AUTHOR'S ORGANIZ ATION 05/21/2021 [facility] DATE CREATED AUTHOR AUTHOR'S ORGANIZ ATION 07/13/2022 [facility] DATE CREATED AUTHOR AUTHOR'S ORGANIZ ATION 09/30/2022 [facility] DATE CREATED AUTHOR AUTHOR'S ORGANIZ ATION 10/02/2022 [facility] DATE CREATED AUTHOR AUTHOR'S ORGANIZ ATION 02/21/2023 [facility] Reason for Visit (unrecogniz ed section and content) Reason Comments Established Patient Source Comments (unrecognize d section and content) In the event this informatio n is protected by the Federal Confidentiality of Alcohol and Drug Abuse Patient Records regulations: The Federal rules restrict any use of the information to criminally investigate or prosecute any alcohol or drug abuse patient.[facility] the event this information is protected by the Federal Confidentiality of Alcohol and Drug Abuse Patient Records regulations: The Federal rules restrict any use of the information to criminally investigate or prosecute any alcohol or drug abuse patient.[facility] Center[facility] the event this information is protected by the Federal Confidentiality of Alcohol and Drug Abuse Patient Records regulations: The Federal rules restrict any use of the information to criminally investigate or prosecute any alcohol or drug abuse patient.[facility] Center[facility] the event this information is protected by the Federal Confidentiality of Alcohol and Drug Abuse Patient Records regulations: The Federal rules restrict any use of the information to criminally investigate or prosecute any alcohol or drug abuse patient.[facility] Center[facility] the event this information is protected by the Federal Confidentiality of Alcohol and Drug Abuse Patient Records regulations: The Federal rules restrict any use of the information to criminally investigate or prosecute any alcohol or drug abuse patient.[facility] Care Teams (unrecognized sec tion and content) 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 Specialty Start Date End Date Alis Cota MD [address] [place] [address] PCP - General Family Practice 06/22/15 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 [facility] [employer] [facility]. provides no warranty or guarantee of the accuracy or completeness of information in this document.
== END | disposition home or self-care (01) ==
LOC: CT 12:25
PROVIDERS: PCP Family Medicine Geriatric Medicine; Referring Provider Internal Medicine Hematology & Oncology; Visit Provider Internal Medicine Hematology & Oncology
DX: R91.8 Other nonspecific abnormal finding of lung field (principal)
CPT/HCPCS: 71260; Q9967

== ENCOUNTER → 2023-06-24 | Outpatient (CLI) | payer MEDICARE, MEDICAID, SELFPAY ==
[2023-06-24 14:52] LABS: Absolute Neutrophil Count 2.7 X10^3/uL (2.0-7.7); Basophil# 0.04 X10^3/uL; Basophil% 0.9 % (0-1); Eosinophil# 0.32 X10^3/uL; Eosinophils% 6.9 % (0-5); Hematocrit 38.9 % (37-47); Hemoglobin 12.9 g/dL (12.0-15.0); Lymphocyte % 21.7 % (19-41); Mean Corp Hgb Conc 33.2 g/dL (32-36); Mean Corpuscular Hgb 29.5 pg (27.0-32.0); Mean Platelet Vol. 10.7 fl (6.2-12.0); Monocyte% 10.8 % (0-10); NRBC Flagged by Analyzer 0 % (0-5); Neutrophil # 2.74 X10^3/uL (2.7-7.7); Neutrophil % 59.5 % (47-70); Platelet Count 322 K/mm3 (150-450); RBC Distribution Width CV 13.8 % (11.6-14.6); RBC Distribution Width SD 45.2 fl (35.1-43.9); Red Blood Count 4.37 M/mm3 (4.2-5.4); White Blood Count 4.6 K/mm3 (4.4-11.0)
[2023-06-24 15:07] LABS: Vitamin D,25 Hydroxy 73.8 ng/mL
[2023-06-24 15:10] LABS: ALB/GLOB Ratio 1.2 RATIO (0.9-2.4); AST(SGOT) 14 U/L (15-37); Alanine Aminotransfer ALT/SGPT 23 U/L (13-56); Albumin, Serum 3.7 g/dL (3.2-5.0); Alkaline Phosphatase 99 U/L (45-117); Anion Gap 3 (5-15); BUN 10 mg/dL (7-18); BUN/Creat Ratio 14.5 RATIO (10-20); Calcium,Total 8.6 mg/dL (8.5-10.1); Chloride 106 mmol/L (98-107); Cholesterol 74 mg/dL (200); Creatinine, Serum 0.69 mg/dL (0.55-1.02); EST Glomerular Filtration Rate 92 mL/min (>60); Est Glom Filt Rate - Afr Amer 111 mL/min (>60); Globulin 3.2 g/dL (2.2-4.2); Glucose 91 mg/dL (74-106); High Density Lipoprotein 36 mg/dL; Potassium 3.8 mmol/L (3.5-5.1); Protein, Total 6.9 g/dL (6.4-8.2); Sodium Level 137 mmol/L (136-145); T4 Free Direct 1.29 ng/dL (0.76-1.46); Thyroid Stim Hormone (TSH) 1.74 uIU/mL (0.358-3.74); Triglycerides 113 mg/dL; Very Low Density Lipoprotein 23 mg/dL (5-40)
[2023-06-24 16:00] LABS: Hemoglobin A1c 4.8 % (3.8-5.6)
--- OUTSIDE RECORDS SUMMARY | 2023-06-24 17:28 | XMS RPT_ITS | CCD ---
Author Name Unknown Address [address] [place] [address] Organization [facility] Care Team Providers Care Color Control Supervisor Name Role Phone No Doctor Assigned, Nodr [...] Unavailable Alis Cota MD Primary Care Provider [phone] KENDRA, PHYSICIAN Primary Care Unavailable JOYCE SCHULTZ Attending Unava ilable JOYCE SCHULTZ Attending Unava ilable KENDRA, PHYSICIAN Primary Care Unavailable Yanira, Dr. Alis [...] Translations: [LAGUNA] Drug Allergy 3 Swelling, Anaphylaxis [facility] Repository (8 sources) ciprofloxacin; Translations: [CIPROFLOXACIN] Drug Allergy 6 Other: See Comments [facility] Repository (8 sources) Dust; Translations: [DUST] Propensity to adverse reactions (disorder) 3 Swelling [facility] Repository (9 sources) gabapentin; Translations: [GABAPENTIN] Drug Allergy 8 Swelling [facility] Repository (9 sources) morphine; Translations: [MORPHINE] Drug Allergy 3 Vomiting [facility] Repository (8 sources) Pollen; Translations: [POLLEN] Propensity to adverse reactions (disorder) 3 Swelling [facility] Repository (7 sources) INSECT PARTS; Translations: [INSECT PARTS] Propensity to adverse reactions (disorder) 6 Swelling, Shortness of Breath, Myalgia [facility] Repository (1 source) Codeine Drug Allergy 0 makes her sick [facility] Work Phone: (1 source) House dust mite; Translations: [DUST MITES] allergy to substance 0 head congestion [facility] Work Phone: (2 sources) Latex; Translations: [LATEX] allergy to substance 1 [facility] Work Phone: (2 sources) Mold Extract; Translations: [MOLD] Drug Allergy 0 head congestion [facility] Work Phone: (1 source) Morphine Drug Allergy 0 makes her sick [facility] Work Phone: (2 sources) predniSONE; Translations: [PREDNISONE] Drug Allergy 2 rash, swelling [facility] Work Phone: (1 source) CHERRIES; Translations: [CHERRIES] food allergy 0 extreme swelling [facility] Work Phone: (1 source) STINGING INSECTS; Translations: [STINGING INSECTS] food allergy 0 Extreme swelling [facility] Work Phone: (1 source) PLANT POLLENS (HAY FEVER) drug allergy 0 head congestion [facility] Work Phone: (7 sources) Alendronate; Translations: [ALENDRONATE] Drug Allergy 0 Other: See Comments [facility] Work Phone: (1 source) Codeine; Translations: [CODEINE] Drug Allergy 0 [facility] Repository (1 source) house dust allergenic extract; Translations: [HOUSE DUST] Drug Allergy 3 [facility] Repository (1 source) Pollen; Translations: [POLLEN EXTRACTS] Propensity to adverse reactions to drug (disorder) 3 [facility] Repository (1 source) HOUSE DUST MITE; Translations: [HOUSE DUST MITE] Propensity to adverse reactions to drug (disorder) 0 [facility] Repository (1 source) INSECT VENOM; Translations: [INSECT VENOM] Propensity to adverse reactions to drug (disorder) 2 [facility] Repository Medications Current Medications [...] for pain For post-op use hydrocodone-acetam inophen [id number] Vi Sanderson PA-C Problems Active Problems Problem [...] (12 sources) Patient encounter status; Translations: [Other intermediate frame tender (current) drug therapy] Onset: 06-01-2018 10-05-2019 Episodic [...] (5 sources) Drug therapy finding; Translations: [Other intermediate frame tender (current) drug therapy] Onset: 10-05-2019 10-05-2019 Episodic [...] 70 mm[Hg] Celina Ellington DO Work Phone: [facility] 05-20-2022 10:00-0500 Heart rate 65 /min Celian Ellington DO Work Phone: [facility] 05-20-2022 10:00-0500 SaO2% (BldA) [Mass fraction] 95 % Celina Ellington DO Work Phone: [facility] 05-20-2022 10:00-0500 Systolic blood pressure 110 mm[Hg] Celina Ellington DO Work Phone: [facility] NEGATED: Highlighted [id number] 09:15-0400 Body height 157.48 cm Caroline Oquendo AT [facility] Work Phone: NEGATED: Highlighted [id number] 09:15-0400 Body height 157 cm Caroline Oquendo AT [facility] Work Phone: NEGATED: Highlighted [id number] 09:15-0400 Body mass index (BMI) [Ratio] 39.47 kg/m2 Caroline Oquendo AT [facility] Work Phone: NEGATED: Highlighted [id number] 09:15-0400 Body weight 97.52 kg Caroline Oquendo AT [facility] Work Phone: NEGATED: Highlighted [id number] 09:15-0400 Body weight 98 kg Caroline Oquendo AT [facility] Work Phone: Encounters Encounter Date Encounter Type Care Provider Facility Start: 02-17-2023 End: 02-17-2023 ambulatory CELINA ELLINGTON Facility:[facility] Start: 09-29-2022 Patient encounter procedure Alis Cota Work Phone: [facility] Work Phone: Start: 09-29-[address] Jonnie Covington is Bas[facility] Facility:[id number] Start: 09-25-[address] Jonnie Covington is Basali Facility:[id number] Start: 09-22-2022 Patient encounter procedure Alis Cota Work Phone: [facility] Work Phone: Start: 09-22-[address] Jonnie Covington is [facility] Facility:[id number] Start: 09-04-[address] Jonnie Covington is [facility] Facility:[id number] Start: 09-04-2022 Patient encounter procedure Alis Cota Work Phone: [facility] Work Phone: Start: 08-13-2022 ambulatory Alis clemens MD Work Phone: Internal Medicine [facility] Start: 07-13-2022 End: 07-13-2022 Emergency department patient visit PHYSICIAN [facility] Start: 05-20-2022 End: 05-20-2022 ambulatory CELINA ELLINGTON Facility:[facility] Start: 05-20-2022 End: 05-20-2022 Patient encounter procedure Celina Ellington DO Work Phone: Vascular Surgery Procedures Date Procedure Procedure Detail Performing Clinician Start: 08-21-2021 End: 08-21-2021 Belt strap sleev grmnt cover Vi Sanderson PA-C Work Phone: Start: 08-21-2021 End: 08-21-2021 BP scrn no perf at interval Vi Sanderson PA-C Work Phone: Start: 08-21-2021 End: 08-21-2021 Calc BMI out nrm kkia nof/u Vi Manriquezr [facility] Work Phone: Start: 08-21-2021 End: 08-21-2021 Current tobacco non-user cad cap copd pv dm Vi Manriquezr [facility] Work Phone: Start: 08-21-2021 End: 08-21-2021 Docrev cur meds by jerry Durantucar [facility] Work Phone: Start: 08-21-2021 End: 08-21-2021 Osteoarthritis symptoms&funcjal status asses Vi Durantucar PA-[facility] Work Phone: Start: 08-21-2021 End: 08-21-2021 Pain doc pos and plan Vi Manri[employer]r [employer] Work Phone: Start: 08-21-2021 End: 08-21-2021 Patient encounter procedure Vi Sanderson [facility] Work Phone: Start: 04-18-2021 Adult depression screening assessment Alis Cota MD Work Phone: Start: 12-18-2020 Colonoscopy Alis leroy MD Work Phone: Start: 08-01-2020 Mammography Alis leroy MD Work Phone: NEGATED: Highlighted rowStart: 08-21-2021 End: 08-21-2021 Documentation of current medications Caroline Oquendo AT Plan of Treatment Date Care Activity Detail Author Start: 12-18-2030 Colonoscopy COLONOSCOPY [facility] Start: 12-18-2030 COLORECTAL CANCER SCREENING COLORECTAL CANCER SCREENING [facility] Start: 09-16-2027 PNEUMOCOCCAL (3 - PPSV23 if available, else PCV20) PNEUMOCOCCAL (3 - PPSV23 if available, else PCV20) [facility] Start: 09-16-2027 PNEUMOCOCCAL (4 - PPSV23 if available, else PCV20) PNEUMOCOCCAL (4 - PPSV23 if available, else PCV20) [facility] Start: 09-16-2027 PNEUMOCOCCAL (4 - PPSV23 or PCV20) PNEUMOCOCCAL (4 - PPSV23 or PCV20) [facility] Start: 04-08-2026 LIPID SCREEN LIPID SCREEN [facility] Start: 07-27-2024 Urine microalbumin profile DTAP,TDAP,TD (2 - Td or Tdap) [facility] Start: 04-08-2024 DIABETES SCREEN DIABETES SCREEN [facility] Start: 10-16-2022 PTRECHADUL, Provider: Yesi Maxwell, Status: Pen, Time: 1:30 PM PTRECHADUL, Provider: Yesi Maxwell, Status: Pen, Time: 1:30 PM [facility] Work Phone: Start: 10-14-2022 AQUATICFU4, Provider: Alyssa Cintron, Status: Pen, Time: 1:00 PM AQUATICFU4, Provider: Alyssa Cintron, Status: Pen, Time: 1:00 PM [facility] Work Phone: Start: 10-09-2022 AQUATICFU4, Provider: Alyssa Cintron, Status: Pen, Time: 2:15 PM AQUATICFU4, Provider: Alyssa Cintron, Status: Pen, Time: 2:15 PM [facility] Work Phone: Start: 10-07-2022 AQUATICFU4, Provider: Alyssa Cintron, Status: Pen, Time: 1:00 PM AQUATICFU4, Provider: Alyssa Cintron, Status: Pen, Time: 1:00 PM [facility] Work Phone: Start: 10-06-2022 AQUATICFU4, Provider: Bailey Burciaga, Status: Pen, Time: 2:30 PM AQUATICFU4, Provider: Bailey Burciaga, Status: Pen, Time: 2:30 PM [facility] Work Phone: Start: 10-03-2022 AQUATICFU4, Provider: Bailey Burciaga, Status: Pen, Time: 10:45 AM AQUATICFU4, Provider: Bailey Burciaga, Status: Pen, Time: 10:45 AM [facility] Work Phone: Start: 10-02-2022 AQUATICFU4, Provider: Alyssa Cintron, Status: Pen, Time: 3:00 PM AQUATICFU4, Provider: Alyssa Cintron, Status: Pen, Time: 3:00 PM [facility] Work Phone: Start: 09-29-2022 AQUATICFU4, Provider: Bailey Burciaga, Status: Pen, Time: 3:15 PM AQUATICFU4, Provider: Bailey Burciaga, Status: Pen, Time: 3:15 PM [facility] Work Phone: Start: 09-25-2022 AQUATICFU4, Provider: Alyssa Cintron, Status: Pen, Time: 3:00 PM AQUATICFU4, Provider: Alyssa Cintron, Status: Pen, Time: 3:00 PM [facility] Work Phone: Start: 05-18-2022 DEPRESSION ASSESSMENT DEPRESSION ASSESSMENT [facility] Start: 04-23-2022 PTRECHADUL, Provider: Hair Servin, Status: Pen, Time: 11:15 AM PTRECHADUL, Provider: [employer], Status: Pen, Time: 11:15 AM [facility] Work Phone: Start: 04-19-2022 ANNUAL PCP TEAM CHRONIC DISEASE VISIT ANNUAL PCP TEAM CHRONIC DISEASE VISIT [facility] Start: 04-18-2022 Adult depression screening assessment DEPRESSION SCREENING [facility] Start: 04-17-2022 PTFUADULT4, Provider: Gogo Montgomery, Status: Pen, Time: 11:30 AM PTFUADULT4, Provider: Gogo Montgomery, Status: Pen, Time: 11:30 AM [facility] Work Phone: Start: 04-15-2022 PTFUADULT4, Provider: Gogo Montgomery, Status: Pen, Time: 11:30 AM PTFUADULT4, Provider: Gogo Montgomery, Status: Pen, Time: 11:30 AM [facility] Work Phone: Start: 04-08-2022 AQUATICFU4, Provider: Alyssa Cintron, Status: Pen, Time: 11:30 AM AQUATICFU4, Provider: Alyssa Cintron, Status: Pen, Time: 11:30 AM [facility] Work Phone: Start: 04-03-2022 AQUATICFU4, Provider: Alyssa Cintron, Status: Pen, Time: 11:30 AM AQUATICFU4, Provider: Alyssa Cintron, Status: Pen, Time: 11:30 AM [facility] Work Phone: Start: 04-01-2022 AQUATICFU4, Provider: Amparo Haines, Status: Pen, Time: 1:15 PM AQUATICFU4, Provider: Amparo Haines, Status: Pen, Time: 1:15 PM [facility] Work Phone: Start: 03-27-2022 AQUATICFU4, Provider: Amparo Haines, Status: Pen, Time: 1:15 PM AQUATICFU4, Provider: Amparo Haines, Status: Pen, Time: 1:15 PM [facility] Work Phone: Start: 03-25-2022 AQUATICFU4, Provider: Alyssa Cintron, Status: Pen, Time: 11:30 AM AQUATICFU4, Provider: Alyssa Cintron, Status: Pen, Time: 11:30 AM [facility] Work Phone: Start: 01-16-2022 Influenza vaccination INFLUENZA (#1) [facility] Start: 12-19-2021 COVID-19 VACCINE (5 - Booster for Moderna series) COVID-19 VACCINE (5 - Booster for Moderna series) [facility] Start: 10-14-2021 COVID-19 VACCINE (5 - Booster for Moderna series) COVID-19 VACCINE (5 - Booster for Moderna series) [facility] Start: 09-11-2021 End: 09-11-2021 Patient encounter procedure Appointment [facility] Work Phone: Start: 08-21-2021 End: 08-21-2021 Patient encounter procedure Appointment [facility] Work Phone: Start: 08-01-2021 Mammography MAMMOGRAM [facility] Start: 05-18-2021 DEPRESSION ASSESSMENT DEPRESSION ASSESSMENT [facility] Start: 07-14-2018 FECAL OCCULT BLOOD FECAL OCCULT BLOOD [facility] Start: 09-16-2007 COLOGUARD (FIT-DNA) COLOGUARD (FIT-DNA) [facility] Start: 09-16-[address] COLONOGRAPHY [facility] Start: 09-16-2007 SIGMOIDOSCOPY SIGMOIDOSCOPY [facility] Start: 1992 Zoledronic acid therapy ALPHA-1 ANTITRYPSIN DEFICIENCY SCREENING [facility] End: 09-12-2023 RASHAD SCREENING RASHAD SCREENING Radiology Routine Encounter for screening mammogram for breast cancer 1 Occurrences starting 08/13/2022 until 09/12/2023 [facility] Work Phone: Immunizations Immunization Date Immunization Notes Care Provider Jabari hines 08-19-2021 COVID-19 vaccine, booster dose (MODERNA) Alis Cota MD Work Phone: [facility] 01-31-2021 influenza, injectabl e, quadrivalent, preservative free Alis Cota MD Work Phone: [facility] 01-31-2021 influenza, seasonal, injectable Alis Cota MD Work Phone: [facility] 07-06-2020 COVID-19 vaccine, fu ll dose (MODERNA) Alis Cota MD Work Phone: [facility] 06-08-2020 COVID-19 vaccine, fu ll dose (MODERNA) Alis Cota MD Work Phone: [facility] 01-24-2020 influenza, injectabl e, quadrivalent, preservative free Alis Cota MD Work Phone: [facility] Work Phone: 03-03-2019 influenza, injectabl e, quadrivalent, contains preservative Alis Cota MD Work Phone: [facility] 01-28-2019 pneumococcal conjuga te vaccine, 13 valent Alis Cota MD Work Phone: [facility] 03-05-2018 zoster vaccine recombinant Alis Cota MD Work Phone: [facility] 03-01-2018 influenza, seasonal, injectable Alis Cota MD Work Phone: [facility] Work Phone: 02-15-2018 influenza, injectabl e, quadrivalent, preservative free Alis Cota MD Work Phone: [facility] 01-01-2018 zoster vaccine recombinant Alis Cota MD Work Phone: [facility] Work Phone: 02-12-2017 influenza, injectabl e, quadrivalent, preservative free Alis Cota MD Work Phone: [facility] 02-12-2017 influenza, seasonal, injectable Alis Cota MD Work Phone: [facility] 02-28-2016 influenza, injectabl e, quadrivalent, contains preservative Alis Cota MD Work Phone: [facility] Work Phone: 02-28-2016 pneumococcal polysaccharide vaccine, 23 vallinn Cota MD Work Phone: [facility] Work Phone: 07-27-2014 pneumococcal polysaccharide vaccine, 23 vallinn Cota MD Work Phone: [facility] 07-27-2014 tetanus toxoid, redu iqra diphtheria toxoid, and acellular pertussis vaccine, adsorbed Alis Cota MD Work Phone: [facility] 03-01-2013 influenza virus vacc ine, unspecified formulation Alis Cota MD Work Phone: [facility] Work Phone: Payers Date Payer Category Payer Medicare [facility] AARP MEDICAR E [facility] AAR MEDICARE O [id number] 2021-Present [phone] [address] [address] [place] [address] O [id number] [facility] AARP [address] E [facility] AARP MEDICARE HMO [id number] 2021-Present [phone] [address] [address] [place] [address] [facility] [id number] 2021 Medicare [id number] 2020 Medicaid [id number] 2020 Medicare [id number] 2018 Unknown 1960 Unknown [id number] 1960 Unknown [id number] 1960 Unknown [id number] 1960 Unknown [id number] 1960 Unknown [id number] 1962 Unknown [id number] 1960 Unknown [id number] 1960 Unknown [id number] 1960 Unknown [id number] [id number] 1960 Unknown [id number] 1960 Unknown [id number] 1960 Unknown [id number] Unknown [id number] Unknown [id number] Social History Date Type Detail Facility Assertion Tobacco smoking consumption unknown (finding) [facility] Work Phone: Start: 08-21-2021 End: 08-21-2021 Assertion Unknown if ever smoked [facility] Work Phone: Start: 06-08-2012 End: 06-07-2018 Tobacco smoking status NHIS Ex-smoker [facility] Work Phone: Start: 09-16-1971 End: 05-18-2008 History of tobacco use Current smoker [facility] Work Phone: Start: 09-16-1971 End: 05-18-2008 History of tobacco use Cigarette Smoker [facility] Work Phone: Start: 06-08-2012 End: 06-07-2018 Cigarettes smoked current (pack per day) - Reported 0.5 [facility] Start: 06-08-2012 End: 06-07-2018 Tobacco use and exposure Smokeless tobacco non-user [facility] Work Phone: Start: 05-22-2021 Alcohol intake Current non-drinker of alcohol (finding) [facility] Start: 04-18-2020 End: 04-17-2021 History SDOH Alcohol Frequency 1 [facility] Start: 09-29-2019 End: 04-12-2020 History SDOH Social Connections Phone 5 [facility] Start: 04-03-2019 History SDOH Social Connections Living 6 [facility] Start: 04-03-2019 History SDOH Physical Activity DPW 0 [facility] Start: 04-03-2019 End: 04-17-2021 History SDOH Transport Med 2 [facility] Start: 04-12-2020 Education 10 [facility] Start: 06-07-2018 Tobacco Comment Multiple smokers in childhood and adult homes. [facility] Start: 1960 Sex Assigned At Female [facility] Start: 02-02-2022 End: 02-12-2022 Exposure to SARS-CoV-2 (event) Not sure [facility] Medical Equipment Procedure Code Equipment Code Equipment Original Text Equipment Identifier Dates Stent Wallstent Unistep Plus 18mm 10fr 100cm Metal 60mm 75cm Endoprosthesis - [id number] Start: 03-10-2018 Functional Status Date Assessment Result Facility NEGATED: Highlighted row Functional performance Functional status health issues are not documented Disease [facility] Work Phone: Mental Status Date Assessment Result Facility NEGATED: Highlighted row Cognitive function [Interpretation] Cognitive status health issues are not documented Disease [facility] Work Phone: Clinical Notes 02-03-2019 to 02-17-2023 Celina Ellington DO - 05/20/2022 10:46 AM Emily Singh - 10/10/2021 5:13 PM EDT Note Date & Type Note Facility 02-17-2023 Note HNO ID: [id number] Author: Celina Ellington DO Service: Vascular Surgery Author Type: Physician Type: Progress Notes Filed: 02/18/2023 4:49 PM Note Text: NAME: JULIA PATI[facility]O [facility] NO: [id number] DATE OF SERVICE: 02/17/2023 Subjective: Julia is [...] concerns. Celina Ellington D.O. KB/089 Audio #: [id number] Date Dictated: 02/17/2023 07:16:48 Date Typed: 02/18/2023 09:00:17 Date Revised: [facility] 02-17-2023 Note HNO ID: [id number] Author: Celina Ellington, DO Service: ? Author Type: Physician Type: Progress Notes Filed: 02/17/2023 9:09 AM Note Text: This office note has been dictated. Celina Ellington DO [facility] 08-13-2022 Note Patient Outreach (IN TMMN) JULIA PATIÑO ([id number]) 1960 F Date Time Provider Department 08/13/22 [...] for screening mammogram for breast cancer [Z12.31] Order(s):RASHAD SCREENING [1120440] Order #: [id number] FUTURE Prescriptions as of 08/18/2022 - calcium [...] tablet by mouth daily at bedtime. Per bell attendant - COMPOUNDED PRESCRIPTION One rollator walker with [...] hypovolemia [I95.89, E86. (more content not included)... 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 Since our last [...] a year, or sooner with any concerns. Celina Ellington D.O. KB/089 Audio #: [id number] Date Dictated: 05/20/2022 11:47:13 Date Typed: 05/21/2022 08:58:13 Date Revised: [facility] 05-20-2022 Note HNO ID: [id number] Author: Celina Ellington DO Service: ? Author Type: Physician Type: Progress Notes Filed: 05/20/2022 12:55 PM Note Text: This office note has been dictated. Celina Ellington DO' [facility] 05-20-2022 History of Present illness Narrative This office note has been dictated. Celina Ellington DO' documented in this encounter [facility] 01-28-2022 History of Present illness [...] of motion/joint mobility, strength and transfers. [facility] Work Phone: 01-28-2022 Reason for visit Narrative Initial Evaluation . back pain-S/P fusion done 01/28/22.Referred by: [facility] Work Phone: 10-10-2021 History of Present illness Narrative POPULATION HEALTH NAVIGATION OUTREACH Action/FYI Working on COPD_CKD_PCP outreach spoke with patient said she goes to [place] to a geriatric doctor for her primary care as she was unable to get in with Dr. Cota on a regualr basis. Pt identified by name and : YES, via phone Outreach Outcome/Action Spoke to patient or caregiver: Patient declined Reason for Outreach Care Gap or Scheduling/Wellness visits Payer: Payor: [facility] MEDICARE / Plan: [facility] MEDICARE HMO / Product Type: HMO / Care Gap Reviewed:: COPD_CKD_PCP Reminder: Reminder note to check Health Maintenance for items below Health Maintenance items due: PNEUMOCOCCAL(1 - PCV) Never done MAMMOGRAM due on 08/01/2021 Message Sent to Practice: No Navigation Signature: Herlinda Singh October 10, 2021 5:14 PM documented in this encounter [facility] 04-18-2021 Note HNO ID: [id number] Author: Shira Priest MD Service: ? Author [...] Migraine without aura (more content not included)... [facility] 02-12-2021 Note HNO ID: [id number] Author: Tarah Ramirez RN Service: ? Author [...] ~Patient was instructed she may take her Caspar as directed. ~Patient was instructed she may take Colace once a day before and after the test. Patient agreed to the plan. All of patient's questions were answered. Tarah Ramirez RN [facility] 02-12-2021 Note HNO ID: [id number] Author: Shira Priest MD Service: ? Author [...] L4-5 - SNGL - CHOLECYSTECTOMY 07/17/2015 Dr.Dawson Adrián NORIEGA (more content not included)... [facility] documented as of this encounter (statuses as of 09/09/2021) [facility] History of Past illness Narrative* Problem Noted Date Resolved Date Hypotension due to hypovolemia 02/03/2019 0 02/05/2019 Last Assessment & Plan: Assessment: No lactic acidosis. PLAN: Dx: ICU monitoring Rx: Balanced crystalloid. No indication for PRBC. Well adult exam 01/06/2017 04/19/2021 Overview: last done: 04/18/2020 Encounter for gynecological examination without abnormal finding 01/03/2016 04/23/2018 Overview: Needs set up with RADIO ANNOUNCER appt in 11/2016 Encounter for screening for diabetes mellitus 04/23/2018 Encounter for screening for cardiovascular disor ders 11/02/2015 04/23/2018 documented as of this encounter (statuses as of 10/10/2021) [facility] History of Past illness Narrative* Problem Noted Date Resolved Date Hypotension due to hypovolemia 02/03/2019 0 02/05/2019 Last Assessment & Plan: Assessment: No lactic acidosis. PLAN: Dx: ICU monitoring Rx: Balanced crystalloid. No indication for PRBC. Well adult exam 01/06/2017 04/19/2021 Overview: last done: 04/18/2020 Encounter for gynecological examination without abnormal finding 01/03/2016 04/23/2018 Overview: Needs set up with RADIO ANNOUNCER appt in 11/2016 Encounter for screening for diabetes mellitus 04/23/2018 Encounter for screening for cardiovascular disor ders 11/02/2015 04/23/2018 documented as of this encounter (statuses as of 04/07/2022) [facility] History of Past illness Narrative* Problem Noted Date Resolved Date Hypotension due to hypovolemia 02/03/2019 0 02/05/2019 Last Assessment & Plan: Assessment: No lactic acidosis. PLAN: Dx: ICU monitoring Rx: Balanced crystalloid. No indication for PRBC. Well adult exam 01/06/2017 04/19/2021 Overview: last done: 04/18/2020 Encounter for gynecological examination without abnormal finding 01/03/2016 04/23/2018 Overview: Needs set up with RADIO ANNOUNCER appt in 11/2016 Encounter for screening for diabetes mellitus 04/23/2018 Encounter for screening for cardiovascular disor ders 11/02/2015 04/23/2018 documented as of this encounter (statuses as of 05/22/2022) [facility] History of Past illness Narrative* Problem Noted Date Resolved Date Hypotension due to hypovolemia 02/03/2019 0 02/05/2019 Last Assessment & Plan: Assessment: No lactic acidosis. PLAN: Dx: ICU monitoring Rx: Balanced crystalloid. No indication for PRBC. Well adult exam 01/06/2017 04/19/2021 Overview: last done: 04/18/2020 Encounter for gynecological examination without abnormal finding 01/03/2016 04/23/2018 Overview: Needs set up with RADIO ANNOUNCER appt in 11/2016 Encounter for screening for diabetes mellitus 04/23/2018 Encounter for screening for cardiovascular disor ders 11/02/2015 04/23/2018 documented as of this encounter (statuses as of 08/18/2022) [facility] note[facility] may be information available, but it has not been provided by the sender.[facility] Work Phone: Evaluation note* Diagnosis Encounter for screening mammogram for breast cancer [facility] Diagnosis May-Thurner syndrome- Primary Compression of vein [facility] Diagnosis May-Thurner syndrome- Primary Compression of vein [facility] Diagnosis Encounter for screening mammogram for breast cancer [facility]* Ms. [...] you for this referral and please call [phone] with any questions or concerns. * Clinical Presentation: Stable and/or uncomplicated characteristics. * Level of Complexity: low * Problem List: activity limitations, ADLs/IADLs/self care skills, decreased functional level, decreased knowledge of HEP, flexibility, pain, participation restrictions, range of motion/joint mobility and strength. [facility] Work Phone: History of Present illness NarrativePatient orientated to pool. Patient tolerated treatment with increased back pain. Patient needing one UE support with LE ther-ex and no support with 100% unloading. Patient has good form/understanding with ther-ex, once shown. Continue with core stability while performing dyn activity to decrease back pain. [facility] Work Phone: History of Present illness NarrativePatient orientated to pool. Patient tolerated treatment with increased back pain. Patient needing one UE support with LE ther-ex and no support with 100% unloading. Patient has good form/understanding with ther-ex, once shown. Continue with core stability while performing dyn activity to decrease back pain. [facility] Work Phone: History of Present illness NarrativePatient tolerated treatment without increased pain. Patient has Fair TrA and keeps intact with ther-ex. Patient needing one UE support with LE ther-ex and no nupport with 100% unloading. Patient has good form/understanding with ther-ex and keeps body in good alignment. Continue with core stability while performing dyn activity to decrease back pain. [facility] Work Phone: Instructions* Instruction Description Start Date Completed [facility] Work Phone: Reason for referral (narrative)* Diagnostic Procedure Only (Routine) - Pending Review Specialty Diagnoses / Procedures Referred By Milana alexander Referred To Contact [facility] Diagnoses Encounter for screening mammogram for breast cancer Procedures RASHAD SCREENING SCREENING MAMMOGRAPHY BI 2-VIEW BREAST INC CAD Alis Cota MD [address] [place] [address] [facility] [address] [place] [address] Referral ID Status Reason Start Date Expiration Date Visits Requested Visits Authorized [id number] Pending Review Auto-Generat ed Referral 09/04/2021 10/04/2022 1 1 [facility] for referral (narrative)* Outpatient Procedure (Routine) - Pending Review Specialty Diagnoses / Procedures Referred By Milana alexander [facility] Diagnoses May-Thurner syndrome Procedures US VISCERAL VEIN COMPLETE VAS LAB DUP-SCAN ARTL SUZI ABDL/PEL/SCROT&/RPR ORGN COM Celina Ellington DO [address] [place] [address] [facility] [address] [address] Referral ID Status Reason Start Date Expiration Date Visits Requested Visits Authorized [id number] Pending Review Auto-Generat ed Referral 02/12/2023 1 1 [facility] for referral (narrative)* Outpatient Procedure (Routine) - Authorized Specialty Diagnoses / Procedures Referred By Milana alexander Ref[facility] Diagnoses May-Thurner syndrome Procedures US VISCERAL VEIN COMPLETE VAS LAB DUP-SCAN ARTL SUZI ABDL/PEL/SCROT&/RPR ORGN COM Celina Ellington DO [address] [place] [address] [facility] [place] [address] [place] [id number] Referral ID Status Reason Start Date Expiration Date Visits Requested Visits Authorized [id number] Authorized Auto-Generat ed Referral 05/20/2022 05/20/2023 1 1 [facility] for referral (narrative)* Diagnostic Procedure Only (Routine) - Pending Review Specialty Diagnoses / Procedures Referred By Milana alexander Referred To Contact [facility] Diagnoses Encounter for screening mammogram for breast cancer Procedures RASHAD SCREENING SCREENING MAMMOGRAPHY BI 2-VIEW BREAST INC CAD Alis Cota MD [address] [place] [address] [facility] [address] [place] [phone] Referral ID Status Reason Start Date Expiration Date Visits Requested Visits Authorized [id number] Pending Review Auto-Generat ed Referral 08/13/2022 09/12/[address] [facility] for visit Narrative* Initial Evaluation . Dx: M54.9. 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 I agree with the findings and plan as documented in the note above and have edited it to reflect my findings and plan. I reviewed all the medications, vital signs, labs and imaging. Bola Dc MD Hospital Medicine Staff PAGER: [phone] DATE of Service: 02/05/2019 TIME of Service: [...] CREATED AUTHOR AUTHOR'S ORGANIZ ATION 07/27/2018 [facility] DATE CREATED AUTHOR AUTHOR'S ORGANIZ ATION 08/20/2018 [facility] DATE CREATED AUTHOR AUTHOR'S ORGANIZ ATION 02/08/2019 [facility] DATE CREATED AUTHOR AUTHOR'S ORGANIZ ATION 05/25/2020 [facility] DATE CREATED AUTHOR AUTHOR'S ORGANIZ ATION 05/21/2021 [facility] DATE CREATED AUTHOR AUTHOR'S ORGANIZ ATION 07/13/2022 [facility] DATE CREATED AUTHOR AUTHOR'S ORGANIZ ATION 09/30/2022 [facility] DATE CREATED AUTHOR AUTHOR'S ORGANIZ ATION 10/02/2022 [facility] DATE CREATED AUTHOR AUTHOR'S ORGANIZ ATION 02/21/2023 [facility] Reason for Visit (unrecogniz ed section and content) Reason Comments Established Patient Source Comments (unrecognize d section and content) In the event this informatio n is protected by the Federal Confidentiality of Alcohol and Drug Abuse Patient Records regulations: The Federal rules restrict any use of the information to criminally investigate or prosecute any alcohol or drug abuse patient.[facility] the event this information is protected by the Federal Confidentiality of Alcohol and Drug Abuse Patient Records regulations: The Federal rules restrict any use of the information to criminally investigate or prosecute any alcohol or drug abuse patient.[facility] the event this information is protected by the Federal Confidentiality of Alcohol and Drug Abuse Patient Records regulations: The Federal rules restrict any use of the information to criminally investigate or prosecute any alcohol or drug abuse patient.[facility] the event this information is protected by the Federal Confidentiality of Alcohol and Drug Abuse Patient Records regulations: The Federal rules restrict any use of the information to criminally investigate or prosecute any alcohol or drug abuse patient.[facility] Center[facility] the event this information is protected by the Federal Confidentiality of Alcohol and Drug Abuse Patient Records regulations: The Federal rules restrict any use of the information to criminally investigate or prosecute any alcohol or drug abuse patient.[facility] Care Teams (unrecognized sec tion and content) Color Control Supervisor Relationship Specialty Start Date End Date Alis Cota MD [address] [place], [place] [id number] PCP - General Family Practice 06/22/15 Color Control Supervisor Relationship Specialty Start Date End Date Alis Cota MD [address] [place] [address] PCP - General Family Medicine 06/22/15 Color Control Supervisor Relationship Specialty Start Date End Date Alis Cota MD [address] [place] [address] PCP - General Family Medicine 06/22/15 Color Control Supervisor Relationship Specialty Start Date End Date Alis Cota MD [address] [place] [address] PCP - General Family Medicine 06/22/15 FOR [...] BE BASED ON THE PRIMARY CLINICAL RECORDS. [facility] [employer] [facility]. provides no warranty or guarantee of the accuracy or completeness of information in this document.
== END | disposition home or self-care (01) ==
LOC: POLAB3 12:51
PROVIDERS: Internal Medicine Endocrinology, Diabetes & Metabolism; PCP Family Medicine Geriatric Medicine; Visit Provider Family Medicine Geriatric Medicine
DX: E11.65 Type 2 diabetes mellitus with hyperglycemia (principal); E78.5 Hyperlipidemia, unspecified; R53.83 Other fatigue; E55.9 Vitamin D deficiency, unspecified; Z86.39 Personal history of other endocrine, nutritional and metabolic disease
CPT/HCPCS: 80053; 80061; 82043; 82306; 83036; 84439; 84443; 85025

== ENCOUNTER → 2023-06-26 | Day surgery (SDC) | payer MEDICARE, MEDICAID, SELFPAY ==
[2023-06-26 09:39] VITALS: BP 93/59; PULSE 88; RESP 15; TEMP 36.1; O2SAT 98
--- OUTSIDE RECORDS SUMMARY | 2023-06-26 09:54 | XMS RPT_ITS | CCD ---
Author Name Unknown Address [id number] [place] [address] Organization [facility] Care Team Providers Care Mexican Food Maker Name Role Phone No Doctor Assigned, Nodr [...] Primary Care Provider Alis Cota Unavailable Alis Coat MD Primary Care Provider KENDRA, PHYSICIAN Primary [...] Translations: [LAGUNA] Drug Allergy 3 Swelling, Anaphylaxis [facility] Repository (8 sources) ciprofloxacin; Translations: [CIPROFLOXACIN] Drug Allergy 6 Other: See Comments [facility] Repository (8 sources) Dust; Translations: [DUST] Propensity to adverse reactions (disorder) 3 Swelling [facility] Repository (9 sources) gabapentin; Translations: [GABAPENTIN] Drug Allergy 8 Swelling [facility] Repository (9 sources) morphine; Translations: [MORPHINE] Drug Allergy 3 Vomiting [facility] Repository (8 sources) Pollen; Translations: [POLLEN] Propensity to adverse reactions (disorder) 3 Swelling [facility] Repository (7 sources) INSECT PARTS; Translations: [INSECT PARTS] Propensity to adverse reactions (disorder) 6 Swelling, Shortness of Breath, Myalgia [facility] Repository (1 source) Codeine Drug Allergy 0 makes her sick [facility] Work Phone: (1 source) House dust mite; Translations: [DUST MITES] allergy to substance 0 head congestion [facility] Work Phone: (2 sources) Latex; Translations: [LATEX] allergy to substance 1 [facility] Work Phone: (2 sources) Mold Extract; Translations: [MOLD] Drug Allergy 0 head congestion [facility] Work Phone: (1 source) Morphine Drug Allergy 0 makes her sick [facility] Work Phone: (2 sources) predniSONE; Translations: [PREDNISONE] Drug Allergy 2 rash, swelling [facility] Work Phone: (1 source) CHERRIES; Translations: [CHERRIES] food allergy 0 extreme swelling [facility] Work Phone: (1 source) STINGING INSECTS; Translations: [STINGING INSECTS] food allergy 0 Extreme swelling [facility] Work Phone: (1 source) PLANT POLLENS (HAY FEVER) drug allergy 0 head congestion [facility] Work Phone: (7 sources) Alendronate; Translations: [ALENDRONATE] Drug Allergy 0 Other: See Comments [facility] Work Phone: (1 source) Codeine; Translations: [CODEINE] Drug Allergy 0 [facility] Repository (1 source) house dust allergenic extract; Translations: [HOUSE DUST] Drug Allergy 3 [facility] Repository (1 source) Pollen; Translations: [POLLEN EXTRACTS] Propensity to adverse reactions to drug (disorder) 3 [facility] Repository (1 source) HOUSE DUST MITE; Translations: [HOUSE DUST MITE] Propensity to adverse reactions to drug (disorder) 0 [facility] Repository (1 source) INSECT VENOM; Translations: [INSECT VENOM] Propensity to adverse reactions to drug (disorder) 2 [facility] Repository Medications Current Medications Medication Drug Class(es) [...] for pain For post-op use hydrocodone-acetam inophen [id number] Vi Sanderson PA-C Problems Active Problems Problem [...] (12 sources) Patient encounter status; Translations: [Other terminal gauger (current) drug therapy] Onset: 06-01-2018 10-05-2019 Episodic [...] (5 sources) Drug therapy finding; Translations: [Other terminal gauger (current) drug therapy] Onset: 10-05-2019 10-05-2019 Episodic [...] 70 mm[Hg] Celina Ellington DO Work Phone: [facility] 05-20-2022 10:00-0500 Heart rate 65 /min Celina Ellington DO Work Phone: [facility] 05-20-2022 10:00-0500 SaO2% (BldA) [Mass fraction] 95 % Celina Ellington DO Work Phone: [facility] 05-20-2022 10:00-0500 Systolic blood pressure 110 mm[Hg] Celina Ellington DO Work Phone: [facility] NEGATED: Highlighted [id number] 09:15-0400 Body height 157.48 cm Caroline Oquendo AT [facility] Work Phone: NEGATED: Highlighted [id number] 09:15-0400 Body height 157 cm Caroline Oquendo AT [facility] Work Phone: NEGATED: Highlighted [id number] 09:15-0400 Body mass index (BMI) [Ratio] 39.47 kg/m2 Caroline Oquendo AT [facility] Work Phone: NEGATED: Highlighted [id number] 09:15-0400 Body weight 97.52 kg Caroline Oquendo AT [facility] Work Phone: NEGATED: Highlighted [id number] 09:15-0400 Body weight 98 kg Caroline Oquendo AT [facility] Work Phone: Encounters Encounter Date Encounter Type Care Provider Facility Start: 02-17-2023 End: 02-17-2023 ambulatory CELINA ELLINGTON Facility:[facility] Start: 09-29-2022 Patient encounter procedure Alis Cota Work Phone: [facility] Work Phone: Start: 09-29-[address] Jonnie Covington is Basali Facility:[id number] Start: 09-25-[address] Jonnie Covington is Basali Facility:[id number] Start: 09-22-2022 Patient encounter procedure Alis Cota Work Phone: [facility] Work Phone: Start: 09-22-[address] Jonnie Covington is Basali Facility:[id number] Start: 09-04-[address] Jonnie Covington is Basali Facility:[id number] Start: 09-04-2022 Patient encounter procedure Alis Cota Work Phone: [facility] Work Phone: Start: 08-13-2022 ambulatory Alis clemens MD Work Phone: Internal Medicine [facility] Start: 07-13-2022 End: 07-13-2022 Emergency department patient visit PHYSICIAN [facility] Start: 05-20-2022 End: 05-20-2022 ambulatory CELINA ELLINGTON Facility:[facility] Start: 05-20-2022 End: 05-20-2022 Patient encounter procedure Celina Ellington DO Work Phone: Vascular Surgery Procedures Date Procedure Procedure Detail Performing Clinician Start: 08-21-2021 End: 08-21-2021 Belt strap sleev grmnt cover Vi Sanderson PA-C Work Phone: Start: 08-21-2021 End: 08-21-2021 BP scrn no perf at interval Vi Sanderson PA-C Work Phone: Start: 08-21-2021 End: 08-21-2021 Calc BMI out nrm kika nof/u Vi Manriquezr PA-[facility] Work Phone: Start: 08-21-2021 End: 08-21-2021 Current tobacco non-user cad cap copd pv dm Vi Manriquezr PA-[facility] Work Phone: Start: 08-21-2021 End: 08-21-2021 Docrev cur meds by jerry Durantucar [employer] Work Phone: Start: 08-21-2021 End: 08-21-2021 Osteoarthritis symptoms&funcjal status asses Vi Durantucar PA-[facility] Work Phone: Start: 08-21-2021 End: 08-21-2021 Pain doc pos and plan Vi Manriquezr [employer] Work Phone: Start: 08-21-2021 End: 08-21-2021 Patient encounter procedure Vi Sanderson [employer] Work Phone: Start: 04-18-2021 Adult depression screening assessment Alis Cota MD Work Phone: Start: 12-18-2020 Colonoscopy Alis leroy MD Work Phone: Start: 08-01-2020 Mammography Alis leory MD Work Phone: NEGATED: Highlighted rowStart: 08-21-2021 End: 08-21-2021 Documentation of current medications Caroline Oquendo AT Plan of Treatment Date Care Activity Detail Author Start: 12-18-2030 Colonoscopy COLONOSCOPY [facility] Start: 12-18-2030 COLORECTAL CANCER SCREENING COLORECTAL CANCER SCREENING [facility] Start: 09-16-2027 PNEUMOCOCCAL (3 - PPSV23 if available, else PCV20) PNEUMOCOCCAL (3 - PPSV23 if available, else PCV20) [facility] Start: 09-16-2027 PNEUMOCOCCAL (4 - PPSV23 if available, else PCV20) PNEUMOCOCCAL (4 - PPSV23 if available, else PCV20) [facility] Start: 09-16-2027 PNEUMOCOCCAL (4 - PPSV23 or PCV20) PNEUMOCOCCAL (4 - PPSV23 or PCV20) [facility] Start: 04-08-2026 LIPID SCREEN LIPID SCREEN [facility] Start: 07-27-2024 Urine microalbumin profile DTAP,TDAP,TD (2 - Td or Tdap) [facility] Start: 04-08-2024 DIABETES SCREEN DIABETES SCREEN [facility] Start: 10-16-2022 PTRECHADUL, Provider: Yesi Maxwell, Status: Pen, Time: 1:30 PM PTRECHADUL, Provider: Yesi Maxwell, Status: Pen, Time: 1:30 PM [facility]: Start: 10-14-2022 AQUATICFU4, Provider: Alyssa Cintron, Status: Pen, Time: 1:00 PM AQUATICFU4, Provider: Alyssa Cintron, Status: Pen, Time: 1:00 PM [facility] Work Phone: Start: 10-09-2022 AQUATICFU4, Provider: Alyssa Cintron, Status: Pen, Time: 2:15 PM AQUATICFU4, Provider: Alyssa Cintron, Status: Pen, Time: 2:15 PM [facility] Work Phone: Start: 10-07-2022 AQUATICFU4, Provider: Alyssa Cintron, Status: Pen, Time: 1:00 PM AQUATICFU4, Provider: Alyssa Cintron, Status: Pen, Time: 1:00 PM [facility] Work Phone: Start: 10-06-2022 AQUATICFU4, Provider: Bailey Burciaga, Status: Pen, Time: 2:30 PM AQUATICFU4, Provider: Bailey Burciaga, Status: Pen, Time: 2:30 PM [facility] Work Phone: Start: 10-03-2022 AQUATICFU4, Provider: Bailey Burciaga, Status: Pen, Time: 10:45 AM AQUATICFU4, Provider: Bailey Burciaga, Status: Pen, Time: 10:45 AM [facility] Work Phone: Start: 10-02-2022 AQUATICFU4, Provider: Alyssa Cintron, Status: Pen, Time: 3:00 PM AQUATICFU4, Provider: Alyssa Cintron, Status: Pen, Time: 3:00 PM [facility] Work Phone: Start: 09-29-2022 AQUATICFU4, Provider: Bailey Burciaga, Status: Pen, Time: 3:15 PM AQUATICFU4, Provider: Bailey Burciaga, Status: Pen, Time: 3:15 PM [facility] Work Phone: Start: 09-25-2022 AQUATICFU4, Provider: Alyssa Cintron, Status: Pen, Time: 3:00 PM AQUATICFU4, Provider: Alyssa Cintron, Status: Pen, Time: 3:00 PM [facility] Work Phone: Start: 05-18-2022 DEPRESSION ASSESSMENT DEPRESSION ASSESSMENT [facility] Start: 04-23-2022 PTRECHADUL, Provider: Hair Servin, Status: Pen, Time: 11:15 AM PTRECHADUL, Provider: [employer] Serv[employer], Status: Pen, Time: 11:15 AM [facility] Work Phone: Start: 04-19-2022 ANNUAL PCP TEAM CHRONIC DISEASE VISIT ANNUAL PCP TEAM CHRONIC DISEASE VISIT [facility] Start: 04-18-2022 Adult depression screening assessment DEPRESSION SCREENING [facility] Start: 04-17-2022 PTFUADULT4, Provider: Gogo Montgomery, Status: Pen, Time: 11:30 AM PTFUADULT4, Provider: Gogo Montgomery, Status: Pen, Time: 11:30 AM [facility] Work Phone: Start: 04-15-2022 PTFUADULT4, Provider: Gogo Montgomery, Status: Pen, Time: 11:30 AM PTFUADULT4, Provider: Gogo Montgomery, Status: Pen, Time: 11:30 AM [facility] Work Phone: Start: 04-08-2022 AQUATICFU4, Provider: Alyssa Cintron, Status: Pen, Time: 11:30 AM AQUATICFU4, Provider: Alyssa Cintron, Status: Pen, Time: 11:30 AM [facility] Work Phone: Start: 04-03-2022 AQUATICFU4, Provider: Alyssa Cintron, Status: Pen, Time: 11:30 AM AQUATICFU4, Provider: Alyssa Cintron, Status: Pen, Time: 11:30 AM [facility] Work Phone: Start: 04-01-2022 AQUATICFU4, Provider: Amparo Haines, Status: Pen, Time: 1:15 PM AQUATICFU4, Provider: Amparo Haines, Status: Pen, Time: 1:15 PM [facility] Work Phone: Start: 03-27-2022 AQUATICFU4, Provider: Amparo Haines, Status: Pen, Time: 1:15 PM AQUATICFU4, Provider: Amparo Haines, Status: Pen, Time: 1:15 PM [facility] Work Phone: Start: 03-25-2022 AQUATICFU4, Provider: Alyssa Cintron, Status: Pen, Time: 11:30 AM AQUATICFU4, Provider: Alyssa Cintron, Status: Pen, Time: 11:30 AM [facility] Work Phone: Start: 01-16-2022 Influenza vaccination INFLUENZA (#1) [facility] Start: 12-19-2021 COVID-19 VACCINE (5 - Booster for Moderna series) COVID-19 VACCINE (5 - Booster for Moderna series) [facility] Start: 10-14-2021 COVID-19 VACCINE (5 - Booster for Moderna series) COVID-19 VACCINE (5 - Booster for Moderna series) [facility] Start: 09-11-2021 End: 09-11-2021 Patient encounter procedure Appointment [facility] Work Phone: Start: 08-21-2021 End: 08-21-2021 Patient encounter procedure Appointment [facility] Work Phone: Start: 08-01-2021 Mammography MAMMOGRAM [facility] Start: 05-18-2021 DEPRESSION ASSESSMENT DEPRESSION ASSESSMENT [facility] Start: 07-14-2018 FECAL OCCULT BLOOD FECAL OCCULT BLOOD [facility] Start: 09-16-2007 COLOGUARD (FIT-DNA) COLOGUARD (FIT-DNA) [facility] Start: 09-16-[address] COLONOGRAPHY [facility] Start: 09-16-2007 SIGMOIDOSCOPY SIGMOIDOSCOPY [facility] Start: 1992 Zoledronic acid therapy ALPHA-1 ANTITRYPSIN DEFICIENCY SCREENING [facility] End: 09-12-2023 RASHAD SCREENING RASHAD SCREENING Radiology Routine Encounter for screening mammogram for breast cancer 1 Occurrences starting 08/13/2022 until 09/12/2023 [facility] Work Phone: Immunizations Immunization Date Immunization Notes Care Provider Jabari hines 08-19-2021 COVID-19 vaccine, booster dose (MODERNA) Alis Cota MD Work Phone: [facility] 01-31-2021 influenza, injectabl e, quadrivalent, preservative free Alis Cota MD Work Phone: [facility] 01-31-2021 influenza, seasonal, injectable Alis Cota MD Work Phone: [facility] 07-06-2020 COVID-19 vaccine, fu ll dose (MODERNA) Alis Cota MD Work Phone: [facility] 06-08-2020 COVID-19 vaccine, fu ll dose (MODERNA) Alis Cota MD Work Phone: [facility] 01-24-2020 influenza, injectabl e, quadrivalent, preservative free Alis Cota MD Work Phone: [facility] Work Phone: 03-03-2019 influenza, injectabl e, quadrivalent, contains preservative Alis Cota MD Work Phone: [facility] 01-28-2019 pneumococcal conjuga te vaccine, 13 valent Alis Cota MD Work Phone: [facility] 03-05-2018 zoster vaccine recombinant Alis Cota MD Work Phone: [facility] 03-01-2018 influenza, seasonal, injectable Alis Cota MD Work Phone: [facility] Work Phone: 02-15-2018 influenza, injectabl e, quadrivalent, preservative free Alis Cota MD Work Phone: [facility] 01-01-2018 zoster vaccine recombinant Alis Cota MD Work Phone: [facility] Work Phone: 02-12-2017 influenza, injectabl e, quadrivalent, preservative free Alis Cota MD Work Phone: [facility] 02-12-2017 influenza, seasonal, injectable Alis Cota MD Work Phone: [facility] 02-28-2016 influenza, injectabl e, quadrivalent, contains preservative Alis Cota MD Work Phone: [facility] Work Phone: 02-28-2016 pneumococcal polysaccharide vaccine, 23 vallinn Cota MD Work Phone: [facility] Work Phone: 07-27-2014 pneumococcal polysaccharide vaccine, 23 vallinn Cota MD Work Phone: [facility] 07-27-2014 tetanus toxoid, redu iqra diphtheria toxoid, and acellular pertussis vaccine, adsorbed Alis Cota MD Work Phone: [facility] 03-01-2013 influenza virus vacc ine, unspecified formulation Alis Cota MD Work Phone: [facility] Work Phone: Payers Date Payer Category Payer Medicare [facility] AARP MEDICAR E [facility] AAR MEDICARE O [id number] 2021-Present [phone] [address] [address] [place] [address] O [id number] 2021 Medicare [facility] AARP MEDICAR E [facility] AARP MEDICARE HMO [id number] 2021-Present [phone] [address] [address] [place] [address] [facility] [id number] 2021 Medicare [id number] 2020 Medicaid [id number] 2020 Medicare [id number] 2018 Unknown 1960 Unknown [id number] 1960 Unknown [id number] 1960 Unknown [id number] 1960 Unknown [id number] 1960 Unknown [id number] 1960 Unknown [id number] 1960 Unknown [id number] 1960 Unknown [id number] 1960 Unknown [id number] 1960 Unknown [id number] 1960 Unknown [id number] 1960 Unknown [id number] Unknown [id number] Unknown [id number] Social History Date Type Detail Facility Assertion Tobacco smoking consumption unknown (finding) [facility] Work Phone: Start: 08-21-2021 End: 08-21-2021 Assertion Unknown if ever smoked [facility] Work Phone: Start: 06-08-2012 End: 06-07-2018 Tobacco smoking status NHIS Ex-smoker [facility] Work Phone: Start: 09-16-1971 End: 05-18-2008 History of tobacco use Current smoker [facility] Work Phone: Start: 09-16-1971 End: 05-18-2008 History of tobacco use Cigarette Smoker [facility] Work Phone: Start: 06-08-2012 End: 06-07-2018 Cigarettes smoked current (pack per day) - Reported 0.5 [facility] Start: 06-08-2012 End: 06-07-2018 Tobacco use and exposure Smokeless tobacco non-user [facility] Work Phone: Start: 05-22-2021 Alcohol intake Current non-drinker of alcohol (finding) [facility] Start: 04-18-2020 End: 04-17-2021 History SDOH Alcohol Frequency 1 [facility] Start: 09-29-2019 End: 04-12-2020 History SDOH Social Connections Phone 5 [facility] Start: 04-03-2019 History SDOH Social Connections Living 6 [facility] Start: 04-03-2019 History SDOH Physical Activity DPW 0 [facility] Start: 04-03-2019 End: 04-17-2021 History SDOH Transport Med 2 [facility] Start: 04-12-2020 Education 10 [facility] Start: 06-07-2018 Tobacco Comment Multiple smokers in childhood and adult homes. [facility] Start: 1960 Sex Assigned At Female [facility] Start: 02-02-2022 End: 02-12-2022 Exposure to SARS-CoV-2 (event) Not sure [facility] Medical Equipment Procedure Code Equipment Code Equipment Original Text Equipment Identifier Dates Stent Wallstent Unistep Plus 18mm 10fr 100cm Metal 60mm 75cm Endoprosthesis - [id number] Start: 03-10-2018 Functional Status Date Assessment Result Facility NEGATED: Highlighted row Functional performance Functional status health issues are not documented Disease [facility] Work Phone: Mental Status Date Assessment Result Facility NEGATED: Highlighted row Cognitive function [Interpretation] Cognitive status health issues are not documented Disease [facility] Work Phone: Clinical Notes 02-03-2019 to 02-17-2023 Celina Ellington DO - 05/20/2022 10:46 AM Emily Singh - 10/10/2021 5:13 PM EDT Note Date & Type Note Facility 02-17-2023 Note HNO ID: [id number] Author: Celina Ellington DO Service: Vascular Surgery Author Type: Physician Type: Progress Notes Filed: 02/18/2023 4:49 PM Note Text: NAME: [facility] NO: [id number] DATE OF SERVICE: 02/17/2023 Subjective: Julia is [...] concerns. Celina Ellington D.O. KB/089 Audio #: [id number] Date Dictated: 02/17/2023 07:16:48 Date Typed: 02/18/2023 09:00:17 Date Revised: [facility] 02-17-2023 Note HNO ID: [id number] Author: Celina Ellington, DO Service: ? Author Type: Physician Type: Progress Notes Filed: 02/17/2023 9:09 AM Note Text: This office note has been dictated. Celina Ellington DO [facility] 08-13-2022 Note Patient Outreach (IN TMMN) JULIA PATIÑO ([id number]) 1960 F Date Time Provider Department 08/13/22 [...] mammogram for breast cancer [Z12.31] Order(s):RASHAD SCREENING [[id number]] Order #: [id number] FUTURE Prescriptions as of 08/18/2022 - calcium [...] tablet by mouth daily at bedtime. Per spider assembler - COMPOUNDED PRESCRIPTION One rollator walker with [...] hypovolemia [I95.89, E86. (more content not included)... [facility] 05-20-2022 Note HNO ID: [id number] Author: Celina Ellington DO Service: Vascular Surgery Author Type: Physician Type: Progress Notes Filed: 05/29/2022 12:13 PM Note Text: NAME: JULIA PATIÑO [facility] NO: [id number] DATE OF SERVICE: 05/20/2022 Subjective: Julia is [...] concerns. Celina Ellington D.O. KB/089 Audio #: [id number] Date Dictated: 05/20/2022 11:47:13 Date Typed: 05/21/2022 08:58:13 Date Revised: [facility] 05-20-2022 Note HNO ID: [id number] Author: Celina Ellington DO Service: ? Author Type: Physician Type: Progress Notes Filed: 05/20/2022 12:55 PM Note Text: This office note has been dictated. Celina Ellington DO' [facility] 05-20-2022 History of Present illness Narrative This office note has been dictated. Celina Ellington DO' documented in this encounter [facility] 01-28-2022 History of Present illness Narrative S/P [...] of motion/joint mobility, strength and transfers. [facility] Work Phone: 01-28-2022 Reason for visit Narrative Initial Evaluation . back pain-S/P fusion done 01/28/22.Referred by: [facility] Work Phone: 10-10-2021 History of Present illness Narrative POPULATION HEALTH NAVIGATION OUTREACH Action/FYI Working on COPD_CKD_PCP outreach spoke with patient said she goes to [place] to a geriatric doctor for her primary [...] 2021 5:14 PM documented in this encounter [facility] 04-18-2021 Note HNO ID: [id number] Author: hSira Priest MD Service: ? Author Type: Physician [...] Migraine without aura (more content not included)... [facility] 02-12-2021 Note HNO ID: [id number] Author: Tarah Ramirez RN Service: ? Author [...] ~Patient was instructed she may take her [place] as directed. ~Patient was instructed she may take Colace once a day before and after the test. Patient agreed to the plan. All of patient's questions were answered. Tarah Ramirez RN [facility] 02-12-2021 Note HNO ID: [id number] Author: Shira Priest MD Service: ? Author [...] 35-39.9 06/07/2018 - BASILIO on CPAP - BASLIIO on CPAP - Positive JIM (antinuclear antibody) [...] Dr.Dawson Adrián NORIEGA (more content not included)... [facility] documented as of this encounter (statuses as of 09/09/2021) [facility] History of Past illness Narrative* Problem Noted Date Resolved Date Hypotension due to hypovolemia 02/03/2019 0 02/05/2019 Last Assessment & Plan: Assessment: No lactic acidosis. PLAN: Dx: ICU monitoring Rx: Balanced crystalloid. No indication for PRBC. Well adult exam 01/06/2017 04/19/2021 Overview: last done: 04/18/2020 Encounter for gynecological examination without abnormal finding 01/03/2016 04/23/2018 Overview: Needs set up with FILLING SEPARATOR appt in 11/2016 Encounter for screening for diabetes mellitus 04/23/2018 Encounter for screening for cardiovascular disor ders 11/02/2015 04/23/2018 documented as of this encounter (statuses as of 10/10/2021) [facility] History of Past illness Narrative* Problem Noted Date Resolved Date Hypotension due to hypovolemia 02/03/2019 0 02/05/2019 Last Assessment & Plan: Assessment: No lactic acidosis. PLAN: Dx: ICU monitoring Rx: Balanced crystalloid. No indication for PRBC. Well adult exam 01/06/2017 04/19/2021 Overview: last done: 04/18/2020 Encounter for gynecological examination without abnormal finding 01/03/2016 04/23/2018 Overview: Needs set up with FILLING SEPARATOR appt in 11/2016 Encounter for screening for diabetes mellitus 04/23/2018 Encounter for screening for cardiovascular disor ders 11/02/2015 04/23/2018 documented as of this encounter (statuses as of 04/07/2022) [facility] History of Past illness Narrative* Problem Noted Date Resolved Date Hypotension due to hypovolemia 02/03/2019 0 02/05/2019 Last Assessment & Plan: Assessment: No lactic acidosis. PLAN: Dx: ICU monitoring Rx: Balanced crystalloid. No indication for PRBC. Well adult exam 01/06/2017 04/19/2021 Overview: last done: 04/18/2020 Encounter for gynecological examination without abnormal finding 01/03/2016 04/23/2018 Overview: Needs set up with FILLING SEPARATOR appt in 11/2016 Encounter for screening for diabetes mellitus 04/23/2018 Encounter for screening for cardiovascular disor ders 11/02/2015 04/23/2018 documented as of this encounter (statuses as of 05/22/2022) [facility] History of Past illness Narrative* Problem Noted Date Resolved Date Hypotension due to hypovolemia 02/03/2019 0 02/05/2019 Last Assessment & Plan: Assessment: No lactic acidosis. PLAN: Dx: ICU monitoring Rx: Balanced crystalloid. No indication for PRBC. Well adult exam 01/06/2017 04/19/2021 Overview: last done: 04/18/2020 Encounter for gynecological examination without abnormal finding 01/03/2016 04/23/2018 Overview: Needs set up with FILLING SEPARATOR appt in 11/2016 Encounter for screening for diabetes mellitus 04/23/2018 Encounter for screening for cardiovascular disor ders 11/02/2015 04/23/2018 documented as of this encounter (statuses as of 08/18/2022) [facility] may be information available, but it has not been provided by the sender.[facility] Work Phone: Evaluation note* Diagnosis Encounter for screening mammogram for breast cancer [facility] Diagnosis May-Thurner syndrome- Primary Compression of vein [facility] Diagnosis May-Thurner syndrome- Primary Compression of vein [facility] Diagnosis Encounter for screening mammogram for breast cancer [facility]* Ms. Patiño arrives [...] you for this referral and please call [phone] with any questions or concerns. * Clinical Presentation: Stable and/or uncomplicated characteristics. * Level of Complexity: low * Problem List: activity limitations, ADLs/IADLs/self care skills, decreased functional level, decreased knowledge of HEP, flexibility, pain, participation restrictions, range of motion/joint mobility and strength. [facility] Work Phone: History of Present illness NarrativePatient orientated to pool. Patient tolerated treatment with increased back pain. Patient needing one UE support with LE ther-ex and no support with 100% unloading. Patient has good form/understanding with ther-ex, once shown. Continue with core stability while performing dyn activity to decrease back pain. [facility] Work Phone: History of Present illness NarrativePatient orientated to pool. Patient tolerated treatment with increased back pain. Patient needing one UE support with LE ther-ex and no support with 100% unloading. Patient has good form/understanding with ther-ex, once shown. Continue with core stability while performing dyn activity to decrease back pain. [facility] Work Phone: History of Present illness NarrativePatient [...] Phone: Instructions* Instruction Description Start Date Completed [facility] Work Phone: Reason for referral (narrative)* Diagnostic Procedure Only (Routine) - Pending Review Specialty Diagnoses / Procedures Referred By Milana alexander Referred To Contact [facility] Diagnoses Encounter for screening mammogram for breast cancer Procedures RASHAD SCREENING SCREENING MAMMOGRAPHY BI 2-VIEW BREAST INC CAD Alis Cota MD [address] [place] [address] [facility] [address] [place] [address] Referral ID Status Reason Start Date Expiration Date Visits Requested Visits Authorized [id number] Pending Review Auto-Generat ed Referral 09/04/2021 10/04/2022 1 1 [facility] for referral (narrative)* Outpatient Procedure (Routine) - Pending Review Specialty Diagnoses / Procedures Referred By Milana alexander [facility] Diagnoses May-Thurner syndrome Procedures US VISCERAL VEIN COMPLETE VAS LAB DUP-SCAN ARTL SUZI ABDL/PEL/SCROT&/RPR ORGN COM Celina Ellington DO [address] [place] [address] [facility] [address] [address] Referral ID Status Reason Start Date Expiration Date Visits Requested Visits Authorized [id number] Pending Review Auto-Generat ed Referral 02/12/2023 1 1 [facility] for referral (narrative)* Outpatient Procedure (Routine) - Authorized Specialty Diagnoses / Procedures Referred By Milana alexander Ref[facility] Diagnoses May-Thurner syndrome Procedures US VISCERAL VEIN COMPLETE VAS LAB DUP-SCAN ARTL SUZI ABDL/PEL/SCROT&/RPR ORGN COM Celina Ellington DO [address] [place] [address] [facility] [place] [address] [place] [address] Referral ID Status Reason Start Date Expiration Date Visits Requested Visits Authorized [id number] Authorized Auto-Generat ed Referral 05/20/2022 05/20/2023 1 1 [facility] for referral (narrative)* Diagnostic Procedure Only (Routine) - Pending Review Specialty Diagnoses / Procedures Referred By Milana alexander Referred To Contact [facility] Diagnoses Encounter for screening mammogram for breast cancer Procedures RASHAD SCREENING SCREENING MAMMOGRAPHY BI 2-VIEW BREAST INC CAD Alis Cota MD [address] [place] [address] [facility] [address] [place] [id number] Referral ID Status Reason Start Date Expiration Date Visits Requested Visits Authorized [id number] Pending Review Auto-Generat ed Referral 08/13/2022 09/12/2023 1 1 T [facility] for visit Narrative* Initial Evaluation . Dx: M54.9. 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 I agree with the findings and plan as documented in the note above and have edited it to reflect my findings and plan. I reviewed all the medications, vital signs, labs and imaging. Bola Dc MD Hospital Medicine Staff PAGER: [phone] DATE of Service: 02/05/2019 TIME of Service: [...] DATE CREATED AUTHOR AUTHOR'S ORGANIZ ATION 07/27/2018 [facility] DATE CREATED AUTHOR AUTHOR'S ORGANIZ ATION 08/20/2018 [facility] DATE CREATED AUTHOR AUTHOR'S ORGANIZ ATION 02/08/2019 [facility] DATE CREATED AUTHOR AUTHOR'S ORGANIZ ATION 05/25/2020 [facility] DATE CREATED AUTHOR AUTHOR'S ORGANIZ ATION 05/21/2021 [facility] DATE CREATED AUTHOR AUTHOR'S ORGANIZ ATION 07/13/2022 [facility] DATE CREATED AUTHOR AUTHOR'S ORGANIZ ATION 09/30/2022 [employer] DATE CREATED AUTHOR AUTHOR'S ORGANIZ ATION 10/02/2022 [facility] DATE CREATED AUTHOR AUTHOR'S ORGANIZ ATION 02/21/2023 [facility] Reason for Visit (unrecogniz ed section and content) Reason Comments Established Patient Source Comments (unrecognize d section and content) In the event this informatio n is protected by the Federal Confidentiality of Alcohol and Drug Abuse Patient Records regulations: The Federal rules restrict any use of the information to criminally investigate or prosecute any alcohol or drug abuse patient.[facility] the event this information is protected by the Federal Confidentiality of Alcohol and Drug Abuse Patient Records regulations: The Federal rules restrict any use of the information to criminally investigate or prosecute any alcohol or drug abuse patient.[facility] the event this information is protected by the Federal Confidentiality of Alcohol and Drug Abuse Patient Records regulations: The Federal rules restrict any use of the information to criminally investigate or prosecute any alcohol or drug abuse patient.[facility] the event this information is protected by the Federal Confidentiality of Alcohol and Drug Abuse Patient Records regulations: The Federal rules restrict any use of the information to criminally investigate or prosecute any alcohol or drug abuse patient.[facility] Hospital[facility] the event this information is protected by the Federal Confidentiality of Alcohol and Drug Abuse Patient Records regulations: The Federal rules restrict any use of the information to criminally investigate or prosecute any alcohol or drug abuse patient.[facility] Care Teams (unrecognized sec tion and content) Mexican Food Maker Relationship Specialty Start Date End Date Alis Cota MD [address] [place], [place] [id number] PCP - General Family Practice 06/22/15 Mexican Food Maker Relationship Specialty Start Date End Date Alis Cota MD [address] [place] [address] PCP - General Family Medicine 06/22/15 Mexican Food Maker Relationship Specialty Start Date End Date Alis Cota MD [address] [place] [address] PCP - General Family Medicine 06/22/15 Mexican Food Maker Relationship Specialty Start Date End Date Alis Cota MD [address] [place] [address] PCP - General Family Medicine 06/22/15 FOR [...] BE BASED ON THE PRIMARY CLINICAL RECORDS. [facility] [employer] [facility]. provides no warranty or guarantee of the accuracy or completeness of information in this document.
== END | disposition home or self-care (01) ==
LOC: EN 09:16
PROVIDERS: PCP Family Medicine Geriatric Medicine; Referring Provider Family Medicine Geriatric Medicine; Visit Provider Surgery
PROC: F00ZJWZ Instrumental Swallowing and Oral Function Assessment using Swallowing Equipment (ICD-10-PCS; CPT 43235; principal; 2023-06-26 09:25)
DX: K21.9 Gastro-esophageal reflux disease without esophagitis (principal)
CPT/HCPCS: 91010

== ENCOUNTER 2023-07-14 08:48 | Day surgery (SDC) | payer MEDICARE, MEDICAID, SELFPAY ==
[2023-07-14] VITALS (7 sets, daily range): BP systolic 97–132; BP diastolic 74–105; PULSE 85–96; RESP 12–18; TEMP 35.9–36.6; O2SAT 92–99; BMI 34.0
[2023-07-14] MEDS: Lactated Ringers 1,000 ML 15 ML IV (09:29)
--- NOTE | 2023-07-14 09:43 | PCM.HP.BLA ---
History and Physical Date of Admission: 07/14/23 Intake Vital Signs 05/21/2409:01 06/11/2407:46 06/22/2408:55 Height 5 ft 3 in 5 ft 3 in 5 ft 3 in Weight: 193 lb 2 oz BMI 34.2 BP 100/62 Blood Pressure Location Rt brachial Position Sitting Respiration 18 Pulse 69 Pulse Source Monitor Temp 96.3 F L Temp Source Temporal Pulse Oximetry (%) 99 Oxygen Delivery Method room air Intake Visit Reasons: HERNIA - READY TO MORALES SURGERY Chief Complaint: Talk about Hiatal Hernia Surgery Trademark Attorney Required: No Accompanied by: Mother Is patient in pain?: No Allergies prednisone Allergy (Severe, Verified 06/24/23 10:56) Angioedemacat dander Allergy (Mild, Verified 06/24/23 10:56) throat swellinglatex Allergy (Mild, Verified 06/24/23 10:56) Hives, Itchingcherry Allergy (Unknown, Verified 06/24/23 10:56) Unknownhouse dust Allergy (Unknown, Verified 06/24/23 10:56) Unknownciprofloxacin Allergy (Verified 06/24/23 10:56) breathing issuesEnvironmental Allergies: Uncoded [metal] Allergy (Verified 06/24/23 10:56) NEEDS FOLLOW-UPgabapentin Allergy (Verified 06/24/23 10:56) Angioedemainsect venom [insects] Allergy (Verified 06/24/23 10:56) NEEDS FOLLOW-UPmorphine Allergy (Verified 06/24/23 10:56) Unknownpollen extracts [pollens] Allergy (Verified 06/24/23 10:56) NEEDS FOLLOW-UP Medications albuterol sulfate 90 mcg/actuation aerosol inhaler 2 puff inhalation Q6H PRN asthma 06/02/19 [History Confirmed 06/24/23] dibucaine 1 % topical ointment 1 applic topical TID PRN Pain/Inflammation 06/02/19 [History Confirmed 06/24/23] epinephrine 0.3 mg/0.3 mL injection, auto-injector 0.3 mg IM ONCE 06/02/19 [History Confirmed 06/24/23] levothyroxine 75 mcg tablet 75 mcg PO DAILY 06/02/19 [History Confirmed 06/24/23] sumatriptan succinate 100 mg tablet See Rx Instructions PO .COMPLEX 06/02/19 [History Confirmed 06/24/23] aspirin 81 mg chewable tablet 81 mg PO DAILY@0800 06/15/20 [History Confirmed 06/24/23] loratadine 10 mg capsule 5 mg PO PRN PRN Allergies 06/15/20 [History Confirmed 06/24/23] hydrocodone-acetaminophen 5-325mg 5mg-325mg 1 tablet PO Q8H PRN PRN Pain 09/07/20 [History Confirmed 06/24/23] pregabalin 150 mg capsule 150 mg PO BID 09/07/20 [History Confirmed 06/24/23] atorvastatin 40 mg tablet 40 mg PO DAILY 07/22/21 [History Confirmed 06/24/23] cholecalciferol (vitamin D3) 50 mcg (2,000 unit) capsule 1,000 unit PO DAILY 07/22/21 [History Confirmed 06/24/23] promethazine 25 mg tablet 25 mg PO PRN PRN nausea and vomiting 07/22/21 [History Confirmed 06/24/23] metoclopramide HCl 10 mg tablet (Reglan) 10 mg PO Q6H PRN nausea and vomiting #14 tabs 07/29/21 [Rx Confirmed 06/24/23] pantoprazole 40 mg tablet,delayed release 40 mg PO BID 11/13/21 [History Confirmed 06/24/23] midodrine 10 mg tablet 10 mg PO TID 04/30/22 [History Confirmed 06/24/23] albuterol sulfate 1.25 mg/3 mL solution for nebulization 1.25 mg inhalation Q4H 05/28/22 [History Confirmed 06/24/23] semaglutide 2 mg/dose (8 mg/3 mL) subcutaneous pen injector (Ozempic) 2 mg subcut .weekly 05/21/23 [History Confirmed 06/24/23] zoledronic acid 4 mg/5 mL intravenous solution 5 mg (6.25 mL) .Route ONCE #100 mL 05/21/23 [Rx Confirmed 06/24/23] [facility] Medical History Ambulates with cane Arthritis Asthma Back pain breast cyst removal Carpal tunnel syndrome Chronic bronchitis Chronic headaches COPD (chronic obstructive pulmonary disease) CPAP (continuous positive airway pressure) dependence Difficulty swallowing Easy bruising Former smoker Gastric reflux High cholesterol History of edema History of pain when walking Hives Hypertension Hypothyroidism Hypothyroidism (acquired) IBS (irritable bowel syndrome) Infection Leg cramps Low iron Migraine headache Multiple lung nodules Neuropathy Nodule of apex of left lung Osteoporosis r thumb surgery Rheumatoid arthritis Shortness of breath on exertion Wears dentures Wears glasses Surgical History H/O colonoscopy H/O hemorrhoidectomy H/O hernia repair H/O oral surgery H/O: History of carpal tunnel release History of esophagogastroduodenoscopy (EGD) History of lumbar fusion History of tonsillectomy History of total abdominal hysterectomy S/P insertion of iliac artery stent Family History Father Bowel disease Heart disease Respiratory disease Severe allergyMother Thyroid disorderSister Thyroid disorderBrother Prostate cancer Social History household members: none housing: house current occupational status: unemployed and disabled Smoking Status: Former smoker pack-years: 15 Tobacco: How many years used: 30 how long ago did patient quit smoking: smoked 1/2 ppd x 30 years, quit 13 years ago alcohol intake: never substance use type: does not use caffeine: No what type of physical activity do you participate in: none seatbelt use: never do you feel safe at home: Yes HPI HPI HPI: Patient is a 62-year-old female known to me from her last visit. During that time we discussed acid reflux and she is trying to get her weight below 35 to discuss surgery. Her BMI is now below 35. She is still having severe reflux. She has had workup in the past for this. ROS General General: No weight change or fatigue HEENT HEENT: No difficulty swallowing Endo Endocrine: No thyroid disease Musc Musculoskeletal: No back problems or arthritis Cardio Cardiovascular: No pacemaker, heart disease, atrial fibrillation, high blood pressure, heart attack, heart stent, palpitations or chest pain Psych Psychiatric: No depression or anxiety Resp Respiratory: No shortness of breath, No cough, No COPD, No asthma and No emphysema Gastro Gastrointestinal: Yes abdominal pain, No nausea or vomiting, No diarrhea, No constipation, No blood in stool, No acid reflux, No hemorrhoids, No ulcers, No gallbladder problem and No black,tarry stools Yefri Hematologic: No blood thinners Assessment and Plan Assessment and Plan (1) GERD (gastroesophageal reflux disease): Status: Acute Qualifiers: Esophagitis presence: esophagitis presence not specified Qualified Code(s): K21.9 - Gastro-esophageal reflux disease without esophagitis Plan: Patient has severe acid reflux. She would like to be worked up and discuss hiatal hernia repair and fundoplication. I briefly discussed surgery with her but I went over more detail the preoperative workup. I will schedule her for EGD and manometry. I do not think she needs pH probe as she is already had this done and it was positive. I explained endoscopy in detail to the patient. I explained the risks including but not limited to stroke or heart attack with anesthesia, perforation of the GI tract, bleeding, infection. I explained that any of these could necessitate further emergency surgery. The patient understands and all questions were answered sufficiently. The patient wishes to proceed with procedure.Patient will follow-up after both procedures to discuss surgery in more detail. Taco Treadwell MD Pager: [facility] [address] [place] [address] [address] [place] [address] Office: I have examined the patient and the H&P has been reviewed. There are no clinical changes since date of exam.
--- NOTE | 2023-07-14 10:00 | EGD_PTH ---
PATHOLOGY RESULTS PATIENT: YUNIER ZAMORA LOC: EN U#:[id number] AGE/SX: 62/F ROOM: RE07/14/[address]: Dr. Taco Treadwell MD : 1960 BED: DIS: 07/14/2023 SPEC #: [id number] RECD: 07/14/23 10:53 STATUS: COLT REBrendan #: [id number] ELVIRA: 07/14/23 10:[address]: Taco Treadwell DEPT: SURGICAL PATHOLOGY RECD BY: Yi Salgado ENTERED: 07/14/23 10:53 SP TYPE: EGD BIOPSY OTHR DR: Dr. Brian Baez MD Tissues: Esophageal mucous membrane Procedures: Surgery Specimen Level IV HEADER OPERATION: EGD with biopsy PRE-OP DIAGNOSIS: GERD TISSUE SUBMITTED: Mid esophagus biopsy MICROSCOPIC DIAGNOSIS Mid esophagus, biopsy: Fragments of squamous mucosa with minimal chronic inflammation. CHEPE:roger 07/15/2023 MICROSCOPIC DESCRIPTION Slides are reviewed. GROSS DESCRIPTION Received in fixative is one container labeled with the patient's name and designated mid esophagus biopsy. The specimen consists of multiple irregular fragments of light gilbert soft tissue that in aggregate measure 0.8 x 0.4 x 0.1 cm. The specimen is totally submitted in one cassette. / SJ:rgoer 07/14/2023 TC:3 CPT: 47398
--- NOTE | 2023-07-14 10:16 | OP.EGD_ITS ---
Patient Name: Julia Patiño Procedure Date: 07/14/2023 9:42 AM Date of : 1960 Age: 62 Procedure: Upper GI endoscopy Indications: Esophageal reflux Providers: Taco Treadwell MD Medicines: Propofol per Anesthesia Patient Profile: This is a 62 year old female. Refer to note in patient chart for documentation of history and physical. Complications: No immediate complications. Estimated blood loss: Minimal. Procedure: Pre-Anesthesia Assessment: - Prior to the procedure, a History and Physical was performed, and patient medications and allergies were reviewed. The patient's tolerance of previous anesthesia was also reviewed. The risks and benefits of the procedure and the sedation options and risks were discussed with the patient. All questions were answered, and informed consent was obtained. Prior Anticoagulants: The patient has taken no anticoagulant or antiplatelet agents. After reviewing the risks and benefits, the patient was deemed in satisfactory condition to undergo the procedure. After obtaining informed consent, the endoscope was passed under direct vision. Throughout the procedure, the patient's blood pressure, pulse, and oxygen saturations were monitored continuously. The Endoscope was introduced through the mouth, and advanced to the third part of duodenum. The upper GI endoscopy was accomplished without difficulty. The patient tolerated the procedure well. Scope In: 9:59:05 AM Scope Out: 10:07:24 AM Total Procedure Duration Time 0 hours 8 minutes 19 seconds Findings: Gastroesophageal reflux is evident by free flow of gastric contents in the lower third of the esophagus. Biopsies were taken with a cold forceps for histology. A large amount of food (residue) was found in the entire examined stomach. The examined duodenum was normal. Impression: - GERD, as evident by free flow of gastric contents into the esophagus. Biopsied. - A large amount of food (residue) in the stomach. - Normal examined duodenum. Recommendation: - Discharge patient to home. - Resume previous diet. - Continue present medications. - Await pathology results. Procedure Code(s): --- Professional --- 29929, Esophagogastroduodenoscopy, flexible, transoral; with biopsy, single or multiple Diagnosis Code(s): --- Professional --- K21.9, Gastro-esophageal reflux disease without esophagitis CPT copyright 2021 [employer]. All rights reserved. The codes documented in this report are preliminary and upon c wpf developer review may be revised to meet current compliance requirements. Taco Treadwell MD 07/14/2023 10:15:48 AM This report has been signed electronically. Number of Addenda: 0 Note Initiated On: 07/14/2023 9:42 AM
--- NOTE | 2023-07-14 10:16 | OP.CCLET_ITS ---
07/14/2023 Brian Baez MD [address] [place] [address] Re : Upper GI endoscopy procedure for Julia Patiño Dear Dr. Baez This procedure was performed on Friday, July 14, 2023. My impressions and recommendations are as follows: Impressions : - GERD, as evident by free flow of gastric contents into the esophagus. Biopsied. - A large amount of food (residue) in the stomach. - Normal examined duodenum. Recommendations : - Discharge patient to home. - Resume previous diet. - Continue present medications. - Await pathology results. My findings are described in the full procedure note, which is enclosed. If I can be of further assistance, please feel free to contact me at Doctor phone number(s): , Work: . Sincerely, Taco Treadwell MD 07/14/2023 10:15:48 AM This report has been signed electronically.
== END 2023-07-14 11:20 | disposition home or self-care (01) ==
LOC: EN 08:49 → AC 08:50
PROVIDERS: PCP Family Medicine Geriatric Medicine; Referring Provider Family Medicine Geriatric Medicine; Visit Provider Surgery
PROC: 0DJ08ZZ Inspection of Upper Intestinal Tract, Via Natural or Artificial Opening Endoscopic (ICD-10-PCS; CPT 43235; principal; 2023-07-14 09:55)
DX: K21.00 Gastro-esophageal reflux disease with esophagitis, without bleeding (principal); J44.9 Chronic obstructive pulmonary disease, unspecified; E78.00 Pure hypercholesterolemia, unspecified; I10 Essential (primary) hypertension; K44.9 Diaphragmatic hernia without obstruction or gangrene; Z87.891 Personal history of nicotine dependence; Z79.890 Hormone replacement therapy; Z79.82 Long term (current) use of aspirin; E03.9 Hypothyroidism, unspecified
CPT/HCPCS: 43239; 88305; J7120

== ENCOUNTER → 2023-08-10 | Outpatient (CLI) | payer MEDICARE, MEDICAID, SELFPAY ==
--- NOTE | 2023-08-10 08:46 | BI_ITS ---
MAMMOGRAPHY - BILATERAL SCREENING REASON FOR EXAM: Female, 62 years old. Routine annual screening examination. PERTINENT HISTORY: Non-contributory. Remote right excisional breast biopsy. TECHNIQUE: Digital bilateral breast gladys (3D mammographic acquisition) in the CC and MLO projections. 2-D mediolateral oblique (MLO) and craniocaudad (CC) views of both breasts were obtained. CAD: Full Field Digital Mammography with Computer Added Detection was performed. COMPARISON: Comparison is made with prior study August 08, 2022 and August 07, 2021. FINDINGS: Breast Composition: There are scattered areas of fibroglandular density. There are no dominant masses or suspicious calcifications. Persistent 1.1 cm x 0.7 cm faint nodular density in the anterior upper slightly lateral aspect of the left breast. The patient will be recalled for additional views including 90 degree lateral and compression spot views. No other significant abnormalities are identified. BI/SCRN MAMM (CAD)W/GLADYS BILAT IMPRESSION: Stable bilateral screening mammogram. Additional views will be obtained. Recall Side: Left Breast ASSESSMENT CATEGORY: BIRADS Category 0: Incomplete. Need additional imaging evaluation. A letter regarding these results will be sent to the patient by the facility within 30 days. Approximately 10% of breast cancers are not detected by mammography. A normal mammogram should not delay biopsy of a clinically suspicious abnormality. [id number] Electronically Signed: Basilio Colindres MD at 10:01 EDT ,
== END | disposition home or self-care (01) ==
PROVIDERS: PCP Family Medicine Geriatric Medicine; Referring Provider Internal Medicine Hematology & Oncology; Visit Provider Internal Medicine Hematology & Oncology
DX: Z12.31 Encounter for screening mammogram for malignant neoplasm of breast (principal)
CPT/HCPCS: 77063; 77067

== ENCOUNTER → 2023-08-18 | Outpatient (CLI) | payer MEDICARE, MEDICAID, SELFPAY ==
--- NOTE | 2023-08-18 14:24 | BI_ITS ---
MAMMOGRAPHY - UNILATERAL DIAGNOSTIC: LEFT BREAST REASON FOR EXAM: Female, 62 years old. Abnormal screening mammogram. PERTINENT HISTORY: Non-contributory. Remote right excisional breast biopsy. TECHNIQUE: 90 degree lateral as well as compression spot views of the left breast were obtained. CAD: Full Field Digital Mammography with Computer Added Detection was performed. COMPARISON: Comparison is made with prior study August 10, 2023 and prior sonogram dated August 07, 2021. FINDINGS: Breast Composition: There are scattered areas of fibroglandular density. Persistent 1.2 cm x 0.5 cm oblong density in the anterior upper lateral aspect of the left breast. Further correlation with ultrasound recommended. No other significant abnormalities are identified. BI/DIAG MAMM W/CAD, UNILAT IMPRESSION: Persistent 1.2 cm x 0.5 cm oval lung density in the anterior aspect of the left breast as described. Correlation with ultrasound is recommended. ASSESSMENT CATEGORY: BIRADS Category 0: Incomplete. Need additional imaging evaluation. A letter regarding these results will be sent to the patient by the facility within 30 days. Approximately 10% of breast cancers are not detected by mammography. A normal mammogram should not delay biopsy of a clinically suspicious abnormality. Electronically Signed: Basilio Colindres MD at 15:16 EDT ,
--- NOTE | 2023-08-18 14:24 | US_ITS ---
STUDY: ULTRASOUND BREAST - LEFT REASON FOR EXAM: Female, 62 years old. Abnormal screening mammogram. TECHNIQUE: Axial and longitudinal images of the LEFT breast were performed with a high resolution ultrasound transducer. # OF IMAGES: 8 COMPARISON: Comparison is made with prior mammogram dated August 18, 2023. FINDINGS: LEFT Breast: The upper outer quadrant of the left breast was examined with ultrasound. The mammographic abnormality corresponds to a 6 mm x 6 mm x 4 mm well-defined hypoechoic nodule at the 12 to 1:00 position of the breast at 4 cm from the nipple. This most likely represents a small fibroadenoma. Tissue diagnosis is recommended. US/Breast Limited Unilateral IMPRESSION: There is a 6 mm x 6 mm x 4 mm well-defined hypoechoic nodule at the 12 to 1:00 position of the breast at 4 cm from nipple. This most likely represents a small fibroadenoma although tissue diagnosis is recommended. ASSESSMENT CATEGORY: BIRADS Category 4: Suspicious - Biopsy Should Be Considered. A letter regarding these results will be sent to the patient by the facility within 30 days. Electronically Signed: Basilio Colindres MD at 8:06 EDT ,
== END | disposition home or self-care (01) ==
LOC: OPBI 14:21
PROVIDERS: PCP Family Medicine Geriatric Medicine; Referring Provider Internal Medicine Hematology & Oncology; Visit Provider Internal Medicine Hematology & Oncology
DX: R92.8 Other abnormal and inconclusive findings on diagnostic imaging of breast (principal)
CPT/HCPCS: 76642; 77065

== ENCOUNTER → 2023-08-20 | Outpatient (CLI) | payer MEDICARE, MEDICAID, SELFPAY ==
--- NOTE | 2023-08-20 | BRBX_PTH ---
PATIENT: YUNIER ZAMORA LOC: [facility] U#:[id number] AGE/SX: 62/F ROOM: RE08/20/[address]: Dr. Brian Baez MD : 1960 BED: DIS: 08/20/2023 SPEC #: [id number] RECD: 08/20/23 13:27 STATUS: COLT REBrendan #: [id number] ELVIRA: 08/20/23 00:[address]: Taco Treadwell DEPT: SURGICAL PATHOLOGY RECD BY: Reji Ritchie ENTERED: 08/20/23 13:27 SP TYPE: BREAST BX OTHR DR: Dr. Brian Baez MD Tissues: Left breast, NOS Procedures: Surgery Specimen Level IV Comments: @ Ordering doctor for SUIV edited from to @ by MARCELLE at 08/21/23 0834 @ Submitting doctor edited from to @ yann IBANEZ at 08/21/23 0834 HEADER OPERATION: Left breast biopsy PRE-OP DIAGNOSIS: Left breast mass TISSUE SUBMITTED: Left breast tissue MICROSCOPIC DIAGNOSIS Left breast tissue, core biopsy: Fragments of benign breast tissue with focal dense fibrosis. Focal microcalcifications. Negative for atypia or malignancy. See comment. CHEPE/ 08/21/23 COMMENT The findings may represent hyalinized fibroadenoma. Correlation with clinical, radiologic findings and appropriate follow up are necessary. MICROSCOPIC DESCRIPTION Slides are reviewed. GROSS DESCRIPTION Received in fixative is one container labeled with the patient's name and designated Left breast tissue. The specimen consists of multiple elongated fragments of gilbert-yellow fibroadipose tissue that in aggregate measure 1.0 x 0.5 x 0.1 cm. The specimen is totally submitted in one cassette. CHEPE/ 08/20/23 TC:5 CPT: 75332
== END | disposition home or self-care (01) ==
LOC: LABSPEC 11:17
PROVIDERS: PCP Family Medicine Geriatric Medicine; Referring Provider Family Medicine Geriatric Medicine; Visit Provider Family Medicine Geriatric Medicine
DX: N60.32 Fibrosclerosis of left breast (principal)
CPT/HCPCS: 88305

== ENCOUNTER → 2023-09-24 | Outpatient (CLI) | payer MEDICARE, MEDICAID, SELFPAY | END | disposition home or self-care (01) | LOC: PSN 12:06 | PROVIDERS: PCP Family Medicine Geriatric Medicine; Referring Provider Family Medicine Geriatric Medicine; Visit Provider Family Medicine Geriatric Medicine | DX: R68.83 Chills (without fever) (principal) | CPT/HCPCS: 87631 ==

== ENCOUNTER → 2023-11-09 | Outpatient (CLI) | payer MEDICARE, MEDICAID, SELFPAY ==
--- NOTE | 2023-11-09 16:15 | RAD_ITS ---
STUDY: X-RAY - ACUTE ABDOMINAL SERIES REASON FOR EXAM: Female, 63 years old. Evaluate for fecal impaction. TECHNIQUE: Single view of the chest. Supine, and erect view(s) of the abdomen were obtained on 4 images. COMPARISON: None. FINDINGS: The lungs are clear and expanded. Normal size heart. Normal mediastinum and jon. Normal visualized pulmonary arteries. Normal visualized aortic arch and descending thoracic aorta. Normal bowel gas pattern appears similar to the rectum. Moderate amount of feces in colon. Cholecystectomy clips. Lower lumbosacral spine fusion status post laminectomy with graft, phleboliths and cholecystectomy clips RAD/Acute Abdomen Inc Chest IMPRESSION: Moderate amount of feces in the colon. No acute abnormality. Electronically Signed: Kalen Mathew MD at 11:37 EDT ,
[2023-11-09 16:33] LABS: Absolute Lymphocyte Count 0.59 X10^3/uL (0.83-4.51); Basophil# 0.01 X10^3/uL; Basophil% 0.2 % (0-1); Eosinophil# 0.08 X10^3/uL; Eosinophils% 1.5 % (0-5); Hematocrit 42.2 % (37-47); Hemoglobin 13.7 g/dL (12.0-15.0); Lymphocyte # 0.59 X10^3/ul (0.83-4.51); Mean Corp Hgb Conc 32.5 g/dL (32-36); Mean Corpuscular Hgb 28.9 pg (27.0-32.0); Mean Platelet Vol. 10.5 fl (6.2-12.0); NRBC Flagged by Analyzer 0 % (0-5); Neutrophil # 3.98 X10^3/uL (2.7-7.7); Neutrophil % 74.1 % (47-70); POSITIVE DIFFERENTIAL YES; Platelet Count 250 K/mm3 (150-450); RBC Distribution Width CV 13.4 % (11.6-14.6); RBC Distribution Width SD 43.8 fl (35.1-43.9); Red Blood Count 4.74 M/mm3 (4.2-5.4); White Blood Count 5.4 K/mm3 (4.4-11.0)
[2023-11-09 17:04] LABS: Differential Indicated SCAN CRITERIA MET
[2023-11-09 17:06] LABS: Anisocytosis RARE; Platelet Estimate ADEQUATE (ADEQ); Red Cell Morphology N CHROM NORMAL (NORM C&C)
[2023-11-09 17:20] LABS: ALB/GLOB Ratio 1.1 RATIO (0.9-2.4); AST(SGOT) 21 U/L (15-37); Alanine Aminotransfer ALT/SGPT 19 U/L (13-56); Albumin, Serum 4.1 g/dL (3.2-5.0); Alkaline Phosphatase 93 U/L (45-117); Anion Gap 5 (5-15); BUN 10 mg/dL (7-18); BUN/Creat Ratio 11.6 RATIO (10-20); Calcium,Total 9.2 mg/dL (8.5-10.1); Chloride 105 mmol/L (98-107); Creatinine, Serum 0.86 mg/dL (0.55-1.02); EST Glomerular Filtration Rate 71 mL/min (>60); Est Glom Filt Rate - Afr Amer 86 mL/min (>60); Globulin 3.6 g/dL (2.2-4.2); Glucose 89 mg/dL (74-106); Potassium 3.5 mmol/L (3.5-5.1); Protein, Total 7.7 g/dL (6.4-8.2); Sodium Level 136 mmol/L (136-145)
== END | disposition home or self-care (01) ==
LOC: LAB 15:43
PROVIDERS: PCP Family Medicine Geriatric Medicine; Referring Provider Family Medicine Geriatric Medicine; Visit Provider Family Medicine Geriatric Medicine
DX: E78.5 Hyperlipidemia, unspecified (principal); K56.41 Fecal impaction
CPT/HCPCS: 36415; 74022; 80053; 85025

== ENCOUNTER → 2023-12-30 | Outpatient (CLI) | payer MEDICARE, MEDICAID, SELFPAY ==
[2023-12-30 10:49] LABS: Absolute Lymphocyte Count 0.77 X10^3/uL (0.83-4.51); Absolute Neutrophil Count 3.8 X10^3/uL (2.0-7.7); Basophil# 0.06 X10^3/uL; Basophil% 1.1 % (0-1); Eosinophil# 0.16 X10^3/uL; Hematocrit 42.2 % (37-47); Hemoglobin 13.8 g/dL (12.0-15.0); Lymphocyte # 0.77 X10^3/ul (0.83-4.51); Lymphocyte % 14.4 % (19-41); Mean Corp Hgb Conc 32.7 g/dL (32-36); Mean Corpuscular Hgb 29.2 pg (27.0-32.0); Mean Corpuscular Volume 89.4 fL (81-99); Mean Platelet Vol. 10.4 fl (6.2-12.0); Monocyte# 0.56 X10^3/uL; Monocyte% 10.5 % (0-10); NRBC Flagged by Analyzer 0 % (0-5); Neutrophil # 3.76 X10^3/uL (2.7-7.7); Neutrophil % 70.6 % (47-70); Platelet Count 293 K/mm3 (150-450); RBC Distribution Width CV 13.6 % (11.6-14.6); RBC Distribution Width SD 44.3 fl (35.1-43.9); Red Blood Count 4.72 M/mm3 (4.2-5.4); White Blood Count 5.3 K/mm3 (4.4-11.0)
[2023-12-30 11:36] LABS: ALB/GLOB Ratio 1.2 RATIO (0.9-2.4); AST(SGOT) 19 U/L (15-37); Alanine Aminotransfer ALT/SGPT 20 U/L (13-56); Albumin, Serum 3.9 g/dL (3.2-5.0); Alkaline Phosphatase 80 U/L (45-117); Anion Gap 6 (5-15); BUN 8 mg/dL (7-18); BUN/Creat Ratio 9.9 RATIO (10-20); Chloride 105 mmol/L (98-107); Cholesterol 103 mg/dL (200); Creatinine, Serum 0.81 mg/dL (0.55-1.02); EST Glomerular Filtration Rate 77 mL/min (>60); Est Glom Filt Rate - Afr Amer 93 mL/min (>60); Globulin 3.3 g/dL (2.2-4.2); Glucose 91 mg/dL (74-106); High Density Lipoprotein 56 mg/dL; Potassium 3.8 mmol/L (3.5-5.1); Protein, Total 7.2 g/dL (6.4-8.2); Sodium Level 140 mmol/L (136-145); Triglycerides 86 mg/dL; Very Low Density Lipoprotein 17 mg/dL (5-40)
== END | disposition home or self-care (01) ==
LOC: POLAB3 10:28
PROVIDERS: PCP Family Medicine Geriatric Medicine; Visit Provider Family Medicine Geriatric Medicine
DX: E78.5 Hyperlipidemia, unspecified (principal); E11.65 Type 2 diabetes mellitus with hyperglycemia; R53.83 Other fatigue
CPT/HCPCS: 36415; 80053; 80061; 83036; 84443; 85025

== ENCOUNTER → 2024-01-27 | Outpatient (CLI) | payer MEDICARE, MEDICAID, SELFPAY ==
[2024-01-27 12:50] LABS: Amphetamine Urine VISTA NEGATIVE (<1000 ng/mL); Barbiturate Urine VISTA NEGATIVE (< 200 ng/mL); Benzodiazepine Urine VISTA NEGATIVE (< 200 ng/mL); Cocaine Urine VISTA NEGATIVE (< 300 ng/mL); Ecstacy Urine VISTA NEGATIVE (< 500 ng/mL); Methadone Urine VISTA NEGATIVE (< 300 ng/mL); PCP Urine VISTA NEGATIVE (< 25 ng/mL); THC Urine VISTA POSITIVE (< 50 ng/mL); Vista UDS pH Range 4
== END | disposition home or self-care (01) ==
PROVIDERS: PCP Family Medicine Geriatric Medicine; Referring Provider Anesthesiology Pain Medicine; Visit Provider Anesthesiology Pain Medicine
DX: F11.20 Opioid dependence, uncomplicated (principal)
CPT/HCPCS: 80307

== ENCOUNTER → 2024-02-25 | Outpatient (CLI) | payer MEDICARE, MEDICAID, SELFPAY ==
--- NOTE | 2024-02-25 12:19 | US_ITS ---
STUDY: ULTRASOUND BREAST - LEFT REASON FOR EXAM: Female, 63 years old. Follow-up biopsy TECHNIQUE: Axial and longitudinal images of the LEFT breast were performed with a high resolution ultrasound transducer. # OF IMAGES: 8 COMPARISON: 08/18/2023 FINDINGS: LEFT Breast: Heterogeneous background echotexture. At 12:00, 4 cm from the nipple, ultrasound demonstrates no change in the 5 mm oval parallel circumscribed hypoechoic mass which has been biopsied.: US/Breast Limited Unilateral IMPRESSION: No change in small mass which has been biopsied. ASSESSMENT CATEGORY: BIRADS Category 2: Benign. A letter regarding these results will be sent to the patient by the facility within 30 days. Electronically Signed: Manuel Hogan MD at 11:12 EDT ,
== END | disposition home or self-care (01) ==
LOC: OPUS 12:19
PROVIDERS: PCP Family Medicine Geriatric Medicine; Referring Provider Surgery; Visit Provider Surgery
DX: R92.8 Other abnormal and inconclusive findings on diagnostic imaging of breast (principal)
CPT/HCPCS: 76642

== ENCOUNTER → 2024-03-14 | Outpatient (CLI) | payer MEDICARE, MEDICAID, SELFPAY | END | disposition home or self-care (01) | LOC: PSN 08:50 | PROVIDERS: PCP Family Medicine Geriatric Medicine; Referring Provider Family Medicine Geriatric Medicine; Visit Provider Family Medicine Geriatric Medicine | DX: R68.83 Chills (without fever) (principal) | CPT/HCPCS: 87631 ==

== ENCOUNTER → 2024-03-18 | Outpatient (CLI) | payer MEDICARE, MEDICAID, SELFPAY ==
--- NOTE | 2024-03-18 06:45 | EKG12_ITS ---
Test Reason : PRE OP Blood Pressure : */* mmHG Vent. Rate : 65 BPM Atrial Rate : 65 BPM P-R Int : 142 ms QRS Dur : 78 ms QT Int : 432 ms P-R-T Axes : 2 24 38 degrees QTcB Int : 449 ms Normal sinus rhythm Normal ECG Confirmed by SOMMER POLO, TAYLOR ([id number]), proposal editor MUNA REYNA ([id number]) on 03/18/2024 12:43:35 PM Referred By: Brian Baez Confirmed By: TAYLOR NOVOA MD
== END | disposition home or self-care (01) ==
LOC: PSN 06:44
PROVIDERS: PCP Family Medicine Geriatric Medicine; Referring Provider Family Medicine Geriatric Medicine; Visit Provider Family Medicine Geriatric Medicine
DX: Z01.818 Encounter for other preprocedural examination (principal)
CPT/HCPCS: 93005

== ENCOUNTER → 2024-03-18 | Outpatient (CLI) | payer MEDICARE, MEDICAID, SELFPAY ==
[2024-03-18 09:40] LABS: Absolute Lymphocyte Count 1.19 X10^3/uL (0.83-4.51); Absolute Neutrophil Count 4.9 X10^3/uL (2.0-7.7); Basophil# 0.08 X10^3/uL; Eosinophil# 0.47 X10^3/uL; Eosinophils% 6.2 % (0-5); Hematocrit 41.5 % (37-47); Hemoglobin 13.6 g/dL (12.0-15.0); Lymphocyte # 1.19 X10^3/ul (0.83-4.51); Lymphocyte % 15.6 % (19-41); Mean Corp Hgb Conc 32.8 g/dL (32-36); Mean Corpuscular Hgb 28.9 pg (27.0-32.0); Mean Corpuscular Volume 88.1 fL (81-99); Mean Platelet Vol. 9.9 fl (6.2-12.0); Monocyte# 0.98 X10^3/uL; Monocyte% 12.8 % (0-10); NRBC Flagged by Analyzer 0 % (0-5); Neutrophil # 4.88 X10^3/uL (2.7-7.7); Platelet Count 391 K/mm3 (150-450); RBC Distribution Width SD 42.5 fl (35.1-43.9); Red Blood Count 4.71 M/mm3 (4.2-5.4); White Blood Count 7.6 K/mm3 (4.4-11.0)
[2024-03-18 09:58] LABS: International Normalized Ratio 1.1; Prothrombin Time (Protime)PT. 13.9 SECONDS (11.7-14.9)
[2024-03-18 10:01] LABS: ALB/GLOB Ratio 1.4 RATIO (0.9-2.4); AST(SGOT) 15 U/L (15-37); Alanine Aminotransfer ALT/SGPT 23 U/L (13-56); Albumin, Serum 4.2 g/dL (3.2-5.0); Alkaline Phosphatase 94 U/L (45-117); Anion Gap 5 (5-15); BUN 25 mg/dL (7-18); BUN/Creat Ratio 28.6 RATIO (10-20); Calcium,Total 8.8 mg/dL (8.5-10.1); Chloride 102 mmol/L (98-107); Creatinine, Serum 0.88 mg/dL (0.55-1.02); EST Glomerular Filtration Rate 70 mL/min (>60); Est Glom Filt Rate - Afr Amer 84 mL/min (>60); Globulin 3.1 g/dL (2.2-4.2); Glucose 92 mg/dL (74-106); Protein, Total 7.3 g/dL (6.4-8.2); Sodium Level 137 mmol/L (136-145)
== END | disposition home or self-care (01) ==
LOC: POLAB3 09:18
PROVIDERS: PCP Family Medicine Geriatric Medicine; Referring Provider Family Medicine Geriatric Medicine; Visit Provider Family Medicine Geriatric Medicine
DX: Z01.818 Encounter for other preprocedural examination (principal); R53.83 Other fatigue
CPT/HCPCS: 36415; 80053; 85025; 85610

== ENCOUNTER → 2024-03-21 | Outpatient (CLI) | payer MEDICARE, MEDICAID, SELFPAY ==
--- NOTE | 2024-03-21 13:57 | US_ITS ---
STUDY: THYROID ULTRASOUND REASON FOR EXAM: Female, 63 years old. Yearly nodule f/u TECHNIQUE: Ultrasound evaluation of the thyroid was performed with real-time and static moran-scale imaging. COMPARISON: Comparison is made with prior study dated October 30, 2022. FINDINGS: RIGHT LOBE: The right lobe of the thyroid gland measures 5.1 cm x 1.3 cm x 1.7 cm. There is a heterogeneous echotexture. A 5 mm x 5 mm x 4 mm hypoechoic nodule in the upper pole of the right lobe with peripheral vascularity. A similar appearing 4 mm x 4 mm x 3 mm nodule is seen in the upper pole as well. There is also evidence of a 9 mm x 8 mm benign millimeter hypoechoic nodule in the inferior aspect of the right lobe. There is essentially no change since prior study. LEFT LOBE: The left lobe of the thyroid gland measures 5 cm x 0.5 cm x 1.5 cm. There is a heterogeneous echotexture. Stable 8 mm x 5 mm x 4 mm hypoechoic nodule in the upper pole of the left lobe. ISTHMUS: The isthmus measures 1.8 mm . The regional lymph nodes are normal. US/Thyroid IMPRESSION: Heterogeneous echotexture of both lobes of the liver with stable bilateral nodules. Electronically Signed: Basilio Colindres MD at 11:10 EST ,
== END | disposition home or self-care (01) ==
PROVIDERS: PCP Family Medicine Geriatric Medicine; Referring Provider Surgery; Visit Provider Surgery
DX: E04.1 Nontoxic single thyroid nodule (principal)
CPT/HCPCS: 76536

== ENCOUNTER → 2024-05-19 | Outpatient (CLI) | payer MEDICARE, MEDICAID, SELFPAY ==
[2024-05-19 12:02] LABS: Calcium,Total 9.3 mg/dL (8.5-10.1); T4 Free Direct 1.04 ng/dL (0.76-1.46)
[2024-05-19 14:32] LABS: PTHIN 89.1 pg/mL (18.4-80.1)
[2024-05-19 14:35] LABS: Vitamin D,25 Hydroxy 61.1 ng/mL
== END | disposition home or self-care (01) ==
LOC: LAB 10:40
PROVIDERS: PCP Family Medicine Geriatric Medicine; Referring Provider Internal Medicine Endocrinology, Diabetes & Metabolism; Visit Provider Internal Medicine Endocrinology, Diabetes & Metabolism
DX: M81.0 Age-related osteoporosis without current pathological fracture (principal); E55.9 Vitamin D deficiency, unspecified; Z86.39 Personal history of other endocrine, nutritional and metabolic disease
CPT/HCPCS: 36415; 82306; 82310; 83970; 84439; 84443

== ENCOUNTER → 2024-05-26 | Outpatient (CLI) | payer MEDICARE, MEDICAID, SELFPAY ==
--- NOTE | 2024-05-26 08:11 | BD_ITS ---
STUDY: DUAL ENERGY X-RAY ABSORPTIOMETRY / DXA REASON FOR EXAM: Female, 63 years old. Compare TECHNIQUE: Bone Mineral Density (BMD) measurements of lumbar spine and bilateral hips were obtained. COMPARISON: Comparison is made with prior study dated April 21, 2019. FINDINGS: Lumbar Spine (L1-L4): g/cm2 (0.713) / T-score (-2.8) / Z-score (-1.3) Findings are suggestive of osteoporosis with a high fracture risk. Left Femur Total: g/cm2 (0.681) / T-score (-2.1) / Z-score (-1.1) Left Femoral Neck: g/cm2 (0.516) / T-score (-3.0) / Z-score (-1.6) Right Femur Total: g/cm2 (0.710) / T-score (-1.9) / Z-score (-0.9) Right Femoral Neck: g/cm2 (0.535) / T-score (-2.8) / Z-score (-1.5) The T-Scores on the most recent prior examination were: Lumbar Spine (L1-L4): There has been improvement of bone density since the previous examination. Left Femur Total: which represents an improvement of 2.3%. Right Femur Total: which represents a worsening of 0.8%. BD/Dexa Bone Density Study IMPRESSION: The patient is considered osteoporotic as outlined below according to World Iker Organization (WHO) criteria with a high fracture risk. There has been improvement of bone density since the previous examination. Reference Information: The T-score is the number of standard deviations above or below the standard which is normal for young adults at their peak bone mineral density. The World Health Organization (WHO) interprets the T-scores as follows: Above -1 Normal bone density Between -1 and -2.5 Osteopenia Equal to / or below -2.5 Osteoporosis As a practical clinical guideline, osteopenia may be graded as follows: Mild -1 through -1.5 Moderate -1.6 through -2.0 Severe -2.1 through -2.4 The Z-score is the number of standard deviations above or below age-matched controls. A Z-score of less than -1.5 would be considered abnormal. References: 1. NIH Osteoporosis and Related Bone Diseases www osteo.org 2. International Society for Clinical Densitometry www iscd.org 3. National Osteoporosis Foundation www nof.org Electronically Signed: Basilio Colinders MD at 9:30 EST ,
== END | disposition home or self-care (01) ==
LOC: OPBD 08:10
PROVIDERS: PCP Family Medicine Geriatric Medicine; Referring Provider Internal Medicine Endocrinology, Diabetes & Metabolism; Visit Provider Internal Medicine Endocrinology, Diabetes & Metabolism
DX: M81.0 Age-related osteoporosis without current pathological fracture (principal)
CPT/HCPCS: 77080

== ENCOUNTER → 2024-05-31 | Outpatient (CLI) | payer MEDICARE, MEDICAID, SELFPAY ==
--- NOTE | 2024-05-31 09:54 | ECHOD_ITS ---
Reason For Study: Pericardial Effusion Left Ventricle Normal LV size. The left ventricular ejection fraction is 60 %. Stage 1 diastolic dysfunction. Right Ventricle Normal RV size. Normal systolic function. Atria Normal left atrium. Normal right atrium. Mitral Valve Normal mitral valve. Tricuspid Valve Normal tricuspid valve. Mild (1+) tricuspid valve insufficiency. Pulmonary artery systolic pressure is 30 mmHg. Aortic Valve Trisinus/trileaflet aortic valve. Pulmonic Valve Normal pulmonic valve. Great Vessels Normal aortic root. Pericardium/Pleural Small (<1.0 cm) pericardial effusion. There are no echocardiographic indications of cardiac tamponade. MMode/2D Measurements & Calculations LVIDd: 5.3 cm IVSd: 0.91 cm asc Aorta Diam: 3.1 cm LVIDs: 3.3 cm LVPWd: 0.97 cm RVDd: 3.6 cm FS: 39.0 % LAV(MOD-bp): 34.6 ml LVAd ap4: 20.6 cm2 SV(MOD-sp4): 33.3 ml LAV(MOD-bp) Indexed: 17.9 ml/m2 LVLd ap4: 7.0 cm SI(MOD-sp4): 17.2 ml/m2 LAV(MOD-sp2): 30.6 ml EDV(MOD-sp4): 51.4 ml LAV(MOD-sp4): 36.9 ml EDV(sp4-el): 51.7 ml LVAs ap4: 11.2 cm2 LVLs ap4: 5.8 cm ESV(MOD-sp4): 18.1 ml ESV(sp4-el): 18.4 ml EF(MOD-sp4): 64.7 % EF(sp4-el): 64.5 % SV(sp4-el): 33.3 ml LA dimension(2D): 4.8 cm LA A4 area: 15.5 cm2 RA A4 area: 10.0 cm2 TAPSE: 1.7 cm Time Measurements MV dec time: 0.25 sec Doppler Measurements & Calculations MV E max humberto: 57.8 cm/sec Lat Peak E' Humberto: 9.5 cm/sec Med Peak E' Humberto: 8.9 cm/sec MV A max humberto: 65.2 cm/sec E/E' lat: 6.1 E/E' med: 6.5 MV E/A: 0.89 Ao V2 max: 122.6 cm/sec LV V1 max: 126.9 cm/sec MV dec slope: 231.0 cm/sec2 Ao max P.0 mmHg LV V1 max P.4 mmHg Ao V2 mean: 85.3 cm/sec LV V1 mean P.7 mmHg Ao mean P.3 mmHg LV V1 mean: 92.5 cm/sec Ao V2 VTI: 28.9 cm LV V1 VTI: 27.5 cm AV (velocity ratio): 0.95 PA V2 max: 80.5 cm/sec TR max humberto: 260.6 cm/sec TR max P.2 mmHg ECHO/Echo Complete Interpretation Summary The left ventricular ejection fraction is 60 %. Normal LV size. Stage 1 diastolic dysfunction. Small (<1.0 cm) pericardial effusion. There are no echocardiographic indications of cardiac tamponade. Ordering Physician: Cherry Pelletier Referring Physician: Brian Baez Chi Performed By: Herlinda Patel, FRANCISCO JAVIER, RVT
== END | disposition home or self-care (01) ==
LOC: CVS 09:54
PROVIDERS: PCP Family Medicine Geriatric Medicine; Referring Provider Physician Assistant Medical; Visit Provider Physician Assistant Medical
DX: I31.39 Other pericardial effusion (noninflammatory) (principal)
CPT/HCPCS: 93306

== ENCOUNTER → 2024-06-27 | Outpatient (CLI) | payer MEDICARE, MEDICAID, SELFPAY ==
[2024-06-27 11:17] LABS: Absolute Lymphocyte Count 0.92 X10^3/uL (0.83-4.51); Basophil# 0.07 X10^3/uL; Basophil% 1.4 % (0-1); Eosinophils% 4.1 % (0-5); Hematocrit 38.3 % (37-47); Hemoglobin 12.7 g/dL (12.0-15.0); Lymphocyte # 0.92 X10^3/ul (0.83-4.51); Lymphocyte % 18.9 % (19-41); Mean Corp Hgb Conc 33.2 g/dL (32-36); Mean Corpuscular Hgb 29.5 pg (27.0-32.0); Mean Corpuscular Volume 89.1 fL (81-99); Mean Platelet Vol. 10.3 fl (6.2-12.0); Monocyte# 0.65 X10^3/uL; Monocyte% 13.3 % (0-10); NRBC Flagged by Analyzer 0 % (0-5); Neutrophil # 3.01 X10^3/uL (2.7-7.7); Neutrophil % 61.9 % (47-70); Platelet Count 280 K/mm3 (150-450); RBC Distribution Width CV 13.5 % (11.6-14.6); RBC Distribution Width SD 43.8 fl (35.1-43.9); White Blood Count 4.9 K/mm3 (4.4-11.0)
[2024-06-27 11:45] LABS: Microalbumin:Creatinine Ratio 8.8 mg/g CRE (<30 mg/g CRE)
[2024-06-27 11:50] LABS: ALB/GLOB Ratio 1.1 RATIO (0.9-2.4); AST(SGOT) 16 U/L (15-37); Alanine Aminotransfer ALT/SGPT 22 U/L (13-56); Albumin, Serum 3.6 g/dL (3.2-5.0); Alkaline Phosphatase 82 U/L (45-117); Anion Gap 6 (5-15); BUN 18 mg/dL (7-18); BUN/Creat Ratio 22.1 RATIO (10-20); Calcium,Total 8.9 mg/dL (8.5-10.1); Chloride 107 mmol/L (98-107); Cholesterol 116 mg/dL (200); Creatinine, Serum 0.81 mg/dL (0.55-1.02); EST Glomerular Filtration Rate 76 mL/min (>60); Est Glom Filt Rate - Afr Amer 92 mL/min (>60); Globulin 3.2 g/dL (2.2-4.2); Glucose 86 mg/dL (74-106); High Density Lipoprotein 65 mg/dL; Potassium 4.5 mmol/L (3.5-5.1); Protein, Total 6.8 g/dL (6.4-8.2); Sodium Level 141 mmol/L (136-145); Triglycerides 68 mg/dL; Very Low Density Lipoprotein 14 mg/dL (5-40)
[2024-06-27 11:55] LABS: Hemoglobin A1c 5.1 % (3.8-5.6)
== END | disposition home or self-care (01) ==
LOC: POLAB3 11:03
PROVIDERS: PCP Family Medicine Geriatric Medicine; Visit Provider Family Medicine Geriatric Medicine
DX: E11.65 Type 2 diabetes mellitus with hyperglycemia (principal); R53.83 Other fatigue; E78.5 Hyperlipidemia, unspecified
CPT/HCPCS: 36415; 80053; 80061; 82043; 82570; 83036; 84443; 85025

== ENCOUNTER → 2024-07-28 | Outpatient (CLI) | payer MEDICARE, MEDICAID, SELFPAY ==
--- NOTE | 2024-07-28 10:23 | RAD_ITS ---
EXAM: XR Bilateral Hips With Pelvis When Performed, 2 or 3 Views CLINICAL INDICATION: PAIN TECHNIQUE: Three or four views of the bilateral hips with pelvis when performed. COMPARISON: No relevant prior studies available. FINDINGS: BONES/JOINTS: Status post posterior fusion of the lower lumbar spine. Vascular stent in the left iliac region. Mild degenerative changes of the hip joints, bilaterally. No acute fracture. No dislocation. SOFT TISSUES: Unremarkable. RAD/Hips B/L min 2 views w/ Pelvis IMPRESSION: Degenerative changes as above. Reading [facility]
== END | disposition home or self-care (01) ==
LOC: RAD 10:20
PROVIDERS: PCP Family Medicine Geriatric Medicine; Referring Provider Family Medicine Geriatric Medicine; Visit Provider Family Medicine Geriatric Medicine
DX: M25.551 Pain in right hip (principal); M25.552 Pain in left hip
CPT/HCPCS: 73521

== ENCOUNTER → 2024-08-10 | Outpatient (CLI) | payer MEDICARE, MEDICAID, SELFPAY ==
--- NOTE | 2024-08-10 07:45 | CT_ITS ---
PROCEDURE: CHEST WITHOUT CONTRAST 08/10/2024 REASON FOR EXAM: 63-year-old female, chest nodule follow-up. TECHNIQUE: Chest CT without contrast. Coronal and Sagittal reconstruction series were provided. One or more dose reduction techniques were used (e.g., Automated exposure control, adjustment of the mA and/or kV according to patient size, use of iterative reconstruction technique RADIATION DOSE SUMMARY: CTDlvol: 14 mGy DLP: 430 mGycm COMPARISON: CT chest 06/19/2023, with multiple priors dating back to 11/06/2021. FINDINGS: Hardware: None. Lymph nodes: Visualization is limited without the use of IV contrast. No axillary, mediastinal or hilar lymphadenopathy. Heart and Vasculature: The heart is normal in size with stable moderate sized pericardial effusion. Moderate coronary artery and minimal thoracic aortic calcifications. Lungs and Airways: The central airways are patent. There are stable solid bilateral pulmonary nodules. A stable right lower lobe solid pulmonary nodule measures 1.0 cm (series 4, image 47), previously 1.0 cm when measured in a similar fashion. A stable left upper lobe solid pulmonary nodule measures 0.6 cm (series 4, image 51), previously measuring 0.6 cm when measured in a similar fashion. No new or enlarging pulmonary nodule identified. No pleural effusion or pneumothorax. Upper Abdomen: Prior cholecystectomy. Small hiatal hernia. Bones: No aggressive osseous lesions. CT/Chest without Contrast IMPRESSION: 1. Stable small bilateral pulmonary nodules as described, unchanged since at le ast 2021. 2. Stable moderate size pericardial effusion. 3. Moderate coronary artery calcifications. Reading Location: [id number]
--- NOTE | 2024-08-10 08:15 | BI_ITS ---
EXAM: SCRN MAMM (CAD)W/GLADYS BILAT 08/10/2024 CLINICAL HISTORY: F, Age 63 y/o , Z12.31 - ENCOUNTER FOR SCREENING MAMMOGRAM FOR MALIGNANT NEOPL... BREAST CANCER RISK ASSESSMENT: Has not been calculated. TECHNIQUE: Bilateral screening digital breast tomosynthesis with 2D images. Computer aided detection. COMPARISON: None. The patient reportedly did have a prior mammogram study on 08/10/2023. We will attempt to obtain those films. If they do become available for review, an addendum will be dictated. FINDINGS: TISSUE DENSITY: The breast tissue is almost entirely fatty. Bilateral Breast Mammographic Findings: There are no other dominant masses, areas of architectural distortion, or suspicious calcifications in the right breast. A 12 mm well-circumscribed isodense mass in the superior outer, far anterior aspect of the left breast is noted. A radiopaque clip is seen at this location. No prior films are available to determine if this mass is stable in size. We will attempt to obtain the prior mammogram study. If it does become available for review, an addendum will be dictated. If it does not, the patient should return for a LM view of the left breast and spot compression views of the left breast mass. An ultrasound examination of the left breast mass may also be needed. BI/SCRN MAMM (CAD)W/GLADYS BILAT IMPRESSION: Right Breast: BIRADS 1 NEGATIVE. Left Breast: BIRADS 0 Incomplete: Need additional imaging evaluation and/or inderjit or mammograms for comparison.. OVERALL FINAL ASSESSMENT: BIRADS 0 Incomplete: Need additional imaging evaluati on and/or prior mammograms for comparison. RECOMMENDATION: Incomplete: Need additional imaging evaluation and/or prior mammograms for comp arison. A letter with findings and recommendations will be mailed to the patient. Reading Location: [id number]
== END | disposition home or self-care (01) ==
PROVIDERS: PCP Family Medicine Geriatric Medicine; Referring Provider Internal Medicine Hematology & Oncology; Visit Provider Internal Medicine Hematology & Oncology
DX: Z12.31 Encounter for screening mammogram for malignant neoplasm of breast (principal); R91.8 Other nonspecific abnormal finding of lung field
CPT/HCPCS: 71250; 77063; 77067

== ENCOUNTER → 2024-08-24 | Outpatient (CLI) | payer MEDICARE, MEDICAID, SELFPAY ==
--- NOTE | 2024-08-24 12:50 | NEURO ---
NCS and/or EMG Patient Report Ordering Doctor: Brian Baez Chi DATE OF SERVICE: 08/24/24 Julia presents with bilateral upper extremity numbness and pain. Electrodiagnostic findings: Median motor nerve demonstrates normal distal latency, amplitude and conduction velocity bilaterally. Ulnar motor response within normal limits bilaterally. Normal median ulnar F?waves. Sensory responses within normal limits. Needle EMG testing was performed in the upper limbs. All muscles tested showed no evidence of denervation with normal motor unit action potentials. Electrodiagnostic impression: This is a normal electrodiagnostic study of the upper limbs. There is no electrodiagnostic evidence for peripheral neuropathy, including carpal tunnel or cubital tunnel syndrome. There is no electrodiagnostic evidence for cervical radiculopathy. Multi Select Codes Neurology Neurology Interp Codes: 44103-95 Musc test done w/n test comp (interp) (2) and 02254-49 Nrv cndj test 11-12 studies (interp)
[2024-08-24 16:22] LABS: Amphetamine Urine NEGATIVE (<1000 ng/mL); Barbiturate Urine NEGATIVE (< 200 ng/mL); Benzodiazepine Urine NEGATIVE (< 200 ng/mL); Buprenorphine Urine NEGATIVE (< 200 ng/mL); Cocaine Urine NEGATIVE (< 300 ng/mL); Fentanyl, Urine NEGATIVE; Methadone Urine NEGATIVE (< 300 ng/mL); Opiates Urine PRESUMPTIVE POSITIVE (< 300 ng/mL); Oxycodone, Urine NEGATIVE (< 100 ng/mL); PCP Urine NEGATIVE (< 25 ng/mL); THC Urine PRESUMPTIVE POSITIVE (< 50 ng/mL)
== END | disposition home or self-care (01) ==
PROVIDERS: PCP Family Medicine Geriatric Medicine; Referring Provider Family Medicine Geriatric Medicine; Visit Provider Family Medicine Geriatric Medicine
DX: M79.641 Pain in right hand (principal); F11.20 Opioid dependence, uncomplicated; M79.642 Pain in left hand; M79.601 Pain in right arm; M79.602 Pain in left arm
CPT/HCPCS: 80307; 95886; 95912

== ENCOUNTER 2024-09-08 13:40 | Outpatient (RCR) | payer MEDICARE, MEDICAID, SELFPAY | END 2024-09-14 23:59 | disposition home or self-care (01) | LOC: WC 13:40 | PROVIDERS: PCP Family Medicine Geriatric Medicine; Referring Provider Family Medicine Geriatric Medicine; Visit Provider Physician Assistant | DX: Z09 Encounter for follow-up examination after completed treatment for conditions other than malignant neoplasm (principal) ==

== ENCOUNTER → 2024-09-12 | Outpatient (CLI) | payer MEDICARE, MEDICAID, SELFPAY ==
[2024-09-12 10:38] LABS: Absolute Lymphocyte Count 0.79 X10^3/uL (0.83-4.51); Absolute Neutrophil Count 2.7 X10^3/uL (2.0-7.7); Basophil# 0.05 X10^3/uL; Basophil% 1.2 % (0-1); Eosinophil# 0.17 X10^3/uL; Hematocrit 38.6 % (37-47); Hemoglobin 12.8 g/dL (12.0-15.0); Lymphocyte # 0.79 X10^3/ul (0.83-4.51); Lymphocyte % 18.5 % (19-41); Mean Corp Hgb Conc 33.2 g/dL (32-36); Mean Corpuscular Hgb 29.8 pg (27.0-32.0); Mean Platelet Vol. 10.1 fl (6.2-12.0); Monocyte# 0.53 X10^3/uL; Monocyte% 12.4 % (0-10); NRBC Flagged by Analyzer 0 % (0-5); Neutrophil # 2.71 X10^3/uL (2.7-7.7); Neutrophil % 63.7 % (47-70); Platelet Count 267 K/mm3 (150-450); RBC Distribution Width CV 13.3 % (11.6-14.6); RBC Distribution Width SD 43.6 fl (35.1-43.9); Red Blood Count 4.29 M/mm3 (4.2-5.4); White Blood Count 4.3 K/mm3 (4.4-11.0)
[2024-09-12 10:50] LABS: Erythrocyte Sedimentation Rate < 1 mm/hr (0-30)
[2024-09-12 11:41] LABS: ALB/GLOB Ratio 1.7 RATIO (0.9-2.4); AST(SGOT) 17 U/L (<=31); Alanine Aminotransfer ALT/SGPT 11 U/L (<=34); Albumin, Serum 4.2 g/dL (3.4-4.8); Alkaline Phosphatase 76 U/L (35-104); Anion Gap 10 (5-15); BUN 11 mg/dL (4-19); BUN/Creat Ratio 13.8 RATIO (10-20); Calcium,Total 8.9 mg/dL (7.6-11.0); Carbon Dioxide 26.1 mmol/L (21.0-32.0); Chloride 106 mmol/L (98-108); Creatinine, Serum 0.77 mg/dL (0.70-1.20); EST Glomerular Filtration Rate 87 (>60); Globulin 2.5 g/dL (2.2-4.2); Glucose 82 mg/dL (70-99); Protein, Total 6.7 g/dL (5.9-8.4); Sodium Level 142 mmol/L (133-145); Total Bilirubin 0.62 mg/dL (0.00-1.30)
[2024-09-12 11:42] LABS: CRP < 3.00 mg/L (0.0-3.0); Uric Acid 4.3 mg/dL (2.6-6.0)
== END | disposition home or self-care (01) ==
PROVIDERS: PCP Family Medicine Geriatric Medicine; Referring Provider Family Medicine Geriatric Medicine; Visit Provider Family Medicine Geriatric Medicine
DX: M25.522 Pain in left elbow (principal); M70.22 Olecranon bursitis, left elbow; S51.002A Unspecified open wound of left elbow, initial encounter; X58.XXXA Exposure to other specified factors, initial encounter
CPT/HCPCS: 36415; 80053; 84550; 85025; 85652; 86140; 87070; 87077; 87186; 87205; 87640

== ENCOUNTER → 2024-10-11 | Outpatient (CLI) | payer MEDICARE, MEDICAID, SELFPAY ==
--- NOTE | 2024-10-11 14:12 | MRI_ITS ---
PROCEDURE: UPPER EXT JOINT ONLY W/WO CONT 10/11/2024 REASON FOR EXAM: ABCESS OF ELBOW, with drainage TECHNIQUE: T1, T2, stir, postcontrast T1 fat-sat MRI of the left elbow with and without intravenous gadolinium-based contrast. Multiplanar and multisequence images were obtained. CONTRAST: 19 cc Clariscan COMPARISON: None FINDINGS: There is an abscess in the olecranon fossa with a low T1 signal component measuring 2.8 x 1.8 by 2.5 cm, with heterogeneous peripheral enhancement following contrast. There are low T1 and T2 signal components consistent with air, with a skin defect at the distal aspect consistent with a tract, axial T1 image 12/10. There is a 0.3 cm subcortical cyst or erosion in the radial head. There is normal marrow signal seen in the distal humerus and in the visualized radius and ulna with no evidence of bony contusion or occult injury. The biceps tendon is normal in appearance. There is moderate distal triceps tendinopathy without full-thickness tear. The ulnar collateral and radial collateral ligaments are normal in appearance. The common flexor tendon is normal in appearance. The brachialis tendon is normal in appearance. Neurovascular bundle and ulnar nerves are normal in appearance. There is no joint effusion. MRI/Upper Ext Joint Only W/WO Cont IMPRESSION: There is an abscess in the olecranon fossa with a low T1 signal component measu ring 2.8 x 1.8 by 2.5 cm, with heterogeneous peripheral enhancement following contrast. There are low T1 and T2 signal components consistent with air, with a skin defe ct at the distal aspect consistent with a tract, axial T1 image 12/10. There is a 0.3 cm subcortical cyst or erosion in the radial head. There is moderate distal triceps tendinopathy without full-thickness tear. Reading Location: [facility]
== END | disposition home or self-care (01) ==
LOC: MRI 13:38
PROVIDERS: PCP Family Medicine Geriatric Medicine; Referring Provider Family Medicine Geriatric Medicine; Visit Provider Family Medicine Geriatric Medicine
DX: M71.022 Abscess of bursa, left elbow (principal); M25.522 Pain in left elbow
CPT/HCPCS: 73223; A9575; A4216

== ENCOUNTER → 2024-10-20 | Outpatient (CLI) | payer MEDICARE, MEDICAID, SELFPAY ==
[2024-10-20 17:41] LABS: Absolute Lymphocyte Count 0.42 X10^3/uL (0.83-4.51); Absolute Neutrophil Count 4.5 X10^3/uL (2.0-7.7); Basophil# 0.01 X10^3/uL; Basophil% 0.2 % (0-1); Hematocrit 40.3 % (37-47); Hemoglobin 13.4 g/dL (12.0-15.0); Lymphocyte # 0.42 X10^3/ul (0.83-4.51); Lymphocyte % 8.4 % (19-41); Mean Corp Hgb Conc 33.3 g/dL (32-36); Mean Corpuscular Hgb 29.9 pg (27.0-32.0); Mean Platelet Vol. 10.7 fl (6.2-12.0); NRBC Flagged by Analyzer 0 % (0-5); Neutrophil # 4.46 X10^3/uL (2.7-7.7); POSITIVE DIFFERENTIAL YES; Platelet Count 260 K/mm3 (150-450); RBC Distribution Width CV 13.5 % (11.6-14.6); RBC Distribution Width SD 44.7 fl (35.1-43.9); Red Blood Count 4.48 M/mm3 (4.2-5.4)
[2024-10-20 18:17] LABS: ALB/GLOB Ratio 1.2 RATIO (0.9-2.4); AST(SGOT) 22 U/L (<=31); Alanine Aminotransfer ALT/SGPT 15 U/L (<=34); Albumin, Serum 4.1 g/dL (3.4-4.8); Alkaline Phosphatase 69 U/L (35-104); Anion Gap 16 (5-15); BUN 16 mg/dL (4-19); BUN/Creat Ratio 15.9 RATIO (10-20); Calcium,Total 8.6 mg/dL (7.6-11.0); Carbon Dioxide 21.7 mmol/L (21.0-32.0); Chloride 103 mmol/L (98-108); EST Glomerular Filtration Rate 64 (>60); Globulin 3.3 g/dL (2.2-4.2); Glucose 132 mg/dL (70-99); Potassium 4.3 mmol/L (3.3-5.1); Pro- Brain NATRIURETIC PEPTIDE 95 pg/mL (<=900); Protein, Total 7.3 g/dL (5.9-8.4); Sodium Level 141 mmol/L (133-145); Thyroid Stim Hormone (TSH) 0.696 uIU/mL (0.300-4.200); Total Bilirubin 0.75 mg/dL (0.00-1.30)
== END | disposition home or self-care (01) ==
LOC: LAB 16:59
PROVIDERS: PCP Family Medicine Geriatric Medicine; Referring Provider Family Medicine Geriatric Medicine; Visit Provider Family Medicine Geriatric Medicine
DX: E87.6 Hypokalemia (principal); M25.471 Effusion, right ankle; R07.9 Chest pain, unspecified
CPT/HCPCS: 36415; 80053; 83880; 84443; 85025

== ENCOUNTER → 2024-11-08 | Outpatient (CLI) | payer MEDICARE, MEDICAID, SELFPAY ==
--- NOTE | 2024-11-08 14:10 | RAD_ITS ---
PROCEDURE: ABD INC DECUB AND/OR ERECT 11/08/2024 REASON FOR EXAM: FECAL IMPACTION OF COLON TECHNIQUE: ABD INC DECUB AND/OR ERECT COMPARISON: 11/09/2023. FINDINGS: Mild amount of fecal residue in the large bowels, mildly decreased. Unchanged metallic clips in the right upper quadrant. Unchanged low lumbar fusion metallic hardware. Diffuse spondylosis. Normal visualized lung bases. There is an unremarkable bowel gas pattern. There is no demonstrated free abdominal air. Normal visualized liver. Normal visualized spleen. Normal visualized kidneys. The soft tissue structures of the pelvis are unremarkable. RAD/Abd Inc Decub and/or Erect IMPRESSION: Mild amount of fecal residue in the large bowels, mildly decreased. Reading Location[facility]
== END | disposition home or self-care (01) ==
LOC: RAD 14:06
PROVIDERS: PCP Family Medicine Geriatric Medicine; Referring Provider Family Medicine Geriatric Medicine; Visit Provider Family Medicine Geriatric Medicine
DX: K56.41 Fecal impaction (principal)
CPT/HCPCS: 74019

== ENCOUNTER 2024-11-19 12:26 | Emergency (ER) | payer MEDICARE, MEDICAID, SELFPAY ==
[2024-11-19 12:27] VITALS: BP 118/85; PULSE 79; RESP 18; TEMP 36.4; O2SAT 100; BMI 35.4
[2024-11-19 12:41] LABS: Hematocrit 41.2 % (37-47); Hemoglobin 14.0 g/dL (12.0-15.0); Immature Granulocytes Count 0.020 X10^3/uL (0.0-0.0); Mean Corp Hgb Conc 34.0 g/dL (32-36); Mean Corpuscular Volume 86.4 fL (81-99); Mean Platelet Vol. 10.0 fl (6.2-12.0); NRBC Flagged by Analyzer 0 % (0-5); POSITIVE DIFFERENTIAL YES; Platelet Count 270 K/mm3 (150-450); RBC Distribution Width CV 13.1 % (11.6-14.6); RBC Distribution Width SD 41.0 fl (35.1-43.9); Red Blood Count 4.77 M/mm3 (4.2-5.4); White Blood Count 5.0 K/mm3 (4.4-11.0)
[2024-11-19 12:49] VITALS: BP 118/69; PULSE 73; RESP 18; TEMP 36.6; O2SAT 97
[2024-11-19 13:27] LABS: AST(SGOT) 19 U/L (<=31); Alanine Aminotransfer ALT/SGPT 14 U/L (<=34); Albumin, Serum 4.3 g/dL (3.4-4.8); Alkaline Phosphatase 89 U/L (35-104); Anion Gap 14 (5-15); BUN 10 mg/dL (4-19); BUN/Creat Ratio 13.5 RATIO (10-20); Calcium,Total 9.8 mg/dL (7.6-11.0); Carbon Dioxide 23.3 mmol/L (21.0-32.0); Chloride 103 mmol/L (98-108); Estimated Creatinine Clearance 82.06 ml/min (50-250); Globulin 2.7 g/dL (2.2-4.2); Glucose 101 mg/dL (70-99); Lipase 22 U/L (13-75); Potassium 4.2 mmol/L (3.3-5.1)
[2024-11-19 13:30] VITALS: BP 113/83; PULSE 63; RESP 16; TEMP 36.6; O2SAT 97
[2024-11-19] MEDS: 0.9% Normal Saline (1000mL) 1,000 ML 999 ML IV (13:41)
[2024-11-19] MEDS: fentaNYL 100 MCG/2 ML Ampul 50 MCG IV (13:42)
[2024-11-19 14:02] LABS: Troponin T High Sensitivity 7 ng/L (<=14)
[2024-11-19 14:56] VITALS: BP 122/93
[2024-11-19 15:56] LABS: Troponin T High Sens 2 HR 8 ng/L (<=14)
[2024-11-19 16:00] VITALS: BP 135/94; PULSE 69; RESP 18; O2SAT 97
[2024-11-19 17:48] VITALS: BP 148/78; PULSE 75; RESP 15; TEMP 37; O2SAT 96
== END 2024-11-19 17:50 | disposition home or self-care (01) ==
PROVIDERS: Emergency Provider Emergency Medicine; PCP Family Medicine Geriatric Medicine; Visit Provider Emergency Medicine
DX: R15.9 Full incontinence of feces (principal); J44.9 Chronic obstructive pulmonary disease, unspecified; R10.31 Right lower quadrant pain; R10.13 Epigastric pain; R10.11 Right upper quadrant pain; I31.39 Other pericardial effusion (noninflammatory); R11.2 Nausea with vomiting, unspecified; E78.00 Pure hypercholesterolemia, unspecified; I10 Essential (primary) hypertension; R19.7 Diarrhea, unspecified; E03.9 Hypothyroidism, unspecified; Z79.82 Long term (current) use of aspirin; Z79.890 Hormone replacement therapy; Z79.899 Other long term (current) drug therapy; Z87.891 Personal history of nicotine dependence
CPT/HCPCS: 71045; 74177; 80053; 83605; 83690; 84484; 85025; 93005; 96361; 96374; 96375; 99285; Q9967; A4216; J2405

== ENCOUNTER 2024-11-23 15:02 | Emergency (ER) | payer MEDICARE, MEDICAID, SELFPAY ==
[2024-11-23 15:04] VITALS: BP 128/75; PULSE 74; RESP 28; TEMP 36.9; O2SAT 92; BMI 42.1
[2024-11-23 15:09] VITALS: BP 103/76; PULSE 67; RESP 24; TEMP 36.3; O2SAT 100
--- NOTE | 2024-11-23 15:17 | EKG12_ITS ---
Test Reason : Blood Pressure : */* mmHG Vent. Rate : 69 BPM Atrial Rate : 69 BPM P-R Int : 142 ms QRS Dur : 80 ms QT Int : 410 ms P-R-T Axes : 28 -6 -1 degrees QTcB Int : 439 ms Normal sinus rhythm incomplete RBBB Confirmed by TAYLOR NOVOA MD ([id number]), science editor TERRY PENNINGTON ([id number]) on 11/24/2024 2:16:35 PM Referred By: Confirmed By: TAYLOR NOVOA MD
--- NOTE | 2024-11-23 15:18 | ED.VIS.DYS ---
HPI History of Present Illness Chief Complaint: Shortness of Breath Informant: patient Narrative Narrative: Patient is a 64-year-old female with history of COPD, hypothyroidism, hypotension (on midodrine), peripheral arterial disease, GERD and achalasia presenting with shortness of breath and hypoxia. Patient's states that the area feels heavy today as it is warm and muggy out. She was feeling more short of breath and was feeling she was going to pass out when she had doctor's appointment with her PCP, Dr. Baez. She states when she got there her O2 sat was in the 60s however his documentation shows that her O2 sat was 89. She was placed on supplemental oxygen and felt much better. She does not wear home O2. She notes that a couple days has been having an intermittent runny nose and a nonproductive cough. Dr. Baez were committed she come to the emergency room. Patient has a swelling of her legs. Denies any chest pain. She has a history of DVT or PE. She did have left elbow surgery about 2 weeks ago. She is empirically on Bactrim for that. Patient notes she was running around a lot today and did not have time to use her inhalers. She was seen in our ER 4 days ago for diarrhea and ultimately diagnosed with encoparesis and discharged home. She notes that night she had a little bit of nausea and vomiting but overall is been doing much better from that standpoint. While in the ER she did have a complaint of chest discomfort and had serial troponins, chest x-ray and EKG which were within normal limits. Chest x-ray at that time did not show any acute process. CT of the abdomen pelvis did show a partially visualized pericardial effusion and a small esophageal hiatal hernia. [facility] Medical History Calcinosis May-Thurner syndrome Preop cardiovascular exam History of hypothyroidism History of peripheral arterial disease History of COPD History of hypertension Vitamin D deficiency Ventral hernia Right thyroid nodule GERD (gastroesophageal reflux disease) Pericardial effusion Hepatic cyst Orthostasis Achalasia Hypotension Nodule of apex of left lung Infection Ambulates with cane Low iron High cholesterol Back pain Migraine headache Difficulty swallowing Gastric reflux Shortness of breath on exertion Leg cramps CPAP (continuous positive airway pressure) dependence History of pain when walking History of edema Multiple lung nodules Hypothyroidism (acquired) Osteoporosis breast cyst removal r thumb surgery Hypothyroidism Rheumatoid arthritis Neuropathy IBS (irritable bowel syndrome) Chronic headaches COPD (chronic obstructive pulmonary disease) Chronic bronchitis Carpal tunnel syndrome Asthma Arthritis Home Medications ?Medication ?Instructions ?Recorded ?Last Taken ?Type albuterol sulfate 90 mcg/actuation 2 puff inhalation Q6H PRN asthma 06/02/19 07/13/23 History aerosol inhaler epinephrine 0.3 mg/0.3 mL 0.3 mg IM ONCE 06/02/19 Unknown History injection, auto-injector levothyroxine 75 mcg tablet 75 mcg PO DAILY 06/02/19 07/14/23 History sumatriptan succinate 100 mg tablet See Rx Instructions PO .COMPLEX 06/02/19 Unknown History aspirin 81 mg chewable tablet 81 mg PO DAILY@0800 06/15/20 04/28/22 History loratadine 10 mg capsule 5 mg PO PRN PRN Allergies 06/15/20 07/13/23 History atorvastatin 40 mg tablet 40 mg PO DAILY 07/22/21 07/13/23 History promethazine 25 mg tablet 25 mg PO PRN PRN nausea and 07/22/21 Unknown History vomiting pantoprazole 40 mg tablet,delayed 40 mg PO BID 11/13/21 07/14/23 History release midodrine 10 mg tablet 10 mg PO TID 04/30/22 07/14/23 History albuterol sulfate 1.25 mg/3 mL 1.25 mg inhalation Q4H PRN 05/28/22 Unknown History solution for nebulization shortness of breath or wheezing budesonide 160 mcg-glycopyr 9 inh inhalation 11/06/23 Unknown History mcg-formot 4.8 mcg/actuation HFA inhaler (Breztri Aerosphere) cholecalciferol (vitamin D3) 125 125 mcg PO QDAY 11/06/23 Unknown History mcg (5,000 unit) capsule hydroxychloroquine 200 mg tablet 200 mg PO DAILY 11/06/23 Unknown History (Plaquenil) montelukast 10 mg tablet 10 mg PO QDAY 11/06/23 Unknown History pregabalin 150 mg capsule 150 mg PO DAILY 11/25/23 Unknown History hydrocodone-acetaminophen 5-325mg 1 tab PO BID Pain 05/19/24 Unknown History 5mg-325mg dicyclomine 20 mg tablet 20 mg PO Q6H PRN PRN abdominal 11/19/24 Unknown Rx discomfort #12 tabs metoclopramide HCl 10 mg tablet 10 mg PO Q6H PRN nausea and 11/19/24 Unknown Rx (Reglan) vomiting #14 tabs dexamethasone 6 mg tablet 6 mg PO DAILY #5 tabs 11/23/24 Unknown Rx Allergy/AdvReac Type Severity Reaction Status Date / Time prednisone Allergy Severe Angioedema Verified 11/23/24 15:04 cat dander Allergy Mild throat Verified 11/23/24 15:04 swelling latex Allergy Mild Hives, Verified 11/23/24 15:04 Itching house dust Allergy Unknown Unknown Verified 11/23/24 15:04 ciprofloxacin Allergy breathing Verified 11/23/24 15:04 issues Environmental Allergies: Allergy NEEDS Verified 11/23/24 15:04 Uncoded (metal) FOLLOW-UP gabapentin Allergy Angioedema Verified 11/23/24 15:04 insect venom (insects) Allergy NEEDS Verified 11/23/24 15:04 FOLLOW-UP mold Allergy Anaphylaxis Verified 11/23/24 15:04 morphine Allergy Unknown Verified 11/23/24 15:04 pollen extracts (pollens) Allergy NEEDS Verified 11/23/24 15:04 FOLLOW-UP Family History Father Bowel disease Heart disease Respiratory disease Severe allergy Mother Thyroid disorder Sister Thyroid disorder Brother Prostate cancer Surgical History Hx of appendectomy Hx laparoscopic cholecystectomy H/O hernia repair History of lumbar fusion H/O hemorrhoidectomy S/P insertion of iliac artery stent History of carpal tunnel release H/O oral surgery History of tonsillectomy H/O: History of total abdominal hysterectomy Social History household members: none housing: house current occupational status: unemployed and disabled Smoking Status: Former smoker pack-years: 15 Tobacco: How many years used: 30 how long ago did patient quit smoking: smoked 1/2 ppd x 30 years, quit 13 years ago alcohol intake: never substance use type: does not use caffeine: No what type of physical activity do you participate in: none seatbelt use: never do you feel safe at home: Yes ROS ROS ED Constitutional Constitutional ED: Reports other Details: Near syncope ; Denies chills or fever(s) ENT ENT ED: Reports rhinorrhea; Denies sore throat Cardiovascular Cardiovascular: Denies chest pain or palpitations Respiratory/Chest Respiratory/Chest: Reports cough and dyspnea; Denies sputum Gastrointestinal Gastrointestinal: Denies abdominal pain, diarrhea, nausea or vomiting Musculoskeletal Musculoskeletal: Denies arthralgias or myalgias Integumentary Denies rash Neurologic Neurologic: Denies weakness Hematologic/Lymphatic Hematologic/Lymphatic: Denies easy bleeding or easy bruising EXAM Physical Exam Const Vital Signs: 11/23/24 15:04 11/23/24 15:09 11/23/24 15:35 Temperature 98.5 F 97.4 F L Temperature Source Oral Oral Pulse Rate 74 67 Respiratory Rate 28 H 24 H Blood Pressure 128/75 H 103/76 Blood Pressure Mean 92 85 Pulse Ox 92 100 Oxygen Delivery Method Room Air Room Air Room Air Fraction of Inspired Oxygen (FIO2) 92 11/23/24 16:02 11/23/24 16:56 Temperature 97.8 F Temperature Source Oral Pulse Rate 63 66 Respiratory Rate 14 Blood Pressure 113/67 103/69 Blood Pressure Mean 82 80 Pulse Ox 96 Oxygen Delivery Method Room Air Fraction of Inspired Oxygen (FIO2) Positive well nourished and well developed General Appearance ED: well developed and NAD HEENT Reports moist mucous membranes HEENT Narrative: Normal oropharynx Eyes PERRL Neck supple and no JVD Resp normal respiratory effort Resp Narrative: Mild crackles noted at the right lung base. No wheezing appreciated. Auscultation: Negative for diminished lung sounds Cardio regular rate and regular rhythm GI non-tender and non-distended Neuro oriented x3 Sensorium / Orientation: alert Motor Exam: Negative for general weakness Psych mental status grossly normal Skin no wounds MDM MDM MDM Narrative Medical decision making narrative: Patient evaluated for shortness of breath and hypoxia at PCP office. She notes that she might use her regular inhalers today. Has had mild cough that is nonproductive. States he is feeling much better at this moment. Was sent in by PCP for further evaluation. Differential includes COPD exacerbation, reactive airway, pneumonia, pleural effusion, ACS, symptomatic anemia and pulmonary emboli. Patient is 92% on room air upon arrival and mildly tachypneic but otherwise has normal vital signs. Workup is largely normal including EKG that does not show any acute ischemic process I do not think she requires serial troponins especially she does not have any chest pain. CBC does not show any leukocytosis or anemia. D-dimer is normal for age (0.56). I do not think she needs a CTA. BMP unremarkable. Chest x-ray 2 views reviewed by myself as well as radiology does not show any acute process. Patient is ambulated in the emergency room and does not go below 94%. She states that she would like to go home. I do not think she requires admission at this time especially as she is not wheezing or required any supplemental oxygen. As patient does have a significant history of COPD I will give her a [id number] course of steroids in case she has worsening respiratory symptoms over the next few days. She is counseled return precautions. She verbalizes agreement understand this plan. Encouraged to follow-up with her primary care doctor. Discharged home in stable condition. Lab Data Labs: Laboratory Results - last 24 hr 11/23/24 15:36 WBC 4.8 RBC 4.30 Hgb 12.6 Hct 38.3 MCV 89.1 MCH 29.3 MCHC 32.9 RDW Std Deviation 43.1 RDW Coeff of Kely 13.3 Plt Count 260 MPV 10.7 Immature Gran % (Auto) 0.400 Neut % (Auto) 65.5 Lymph % (Auto) 14.7 L Geary % (Auto) 15.5 H Eos % (Auto) 2.7 Baso % (Auto) 1.2 H Absolute Neuts (auto) 3.2 Absolute Lymphs (auto) 0.71 L Nucleated RBC % 0 D-Dimer Quant (PE/DVT) 0.56 H* Sodium 141 Potassium 3.9 Chloride 104 Carbon Dioxide 26.6 Anion Gap 10 BUN 8 Creatinine 0.68 L Estim Creat Clear Calc 101.07 Est GFR (MDRD) Non-Af 99 BUN/Creatinine Ratio 11.3 Glucose 95 Calcium 9.0 Radiography Diagnostic Testing: Clinical Impression(s) from Imaging Studies Chest X-Ray 11/23/24 16:35 IMPRESSION: No focal consolidations. Reading Location: [facility] Rhythm Strip Rhythm Strip: Sinus Rhythm Rate: 69 Ectopy: None EKG Initial EKG: Attestation: I personally reviewed and interpreted this EKG as follows: Interpretation: Sinus Rhythm Comments: Normal sinus rhythm at a rate of 69 bpm Normal axis Normal intervals Normal ST segments Discharge Plan Triage Chief Complaint: Shortness of Breath ED Provider: Brittany Jackson Dx/Rx/DC Orders Clinical Impression: Dyspnea, History of COPD Instructions: ED Dyspnea Prescriptions: New dexamethasone 6 mg tablet 6 mg PO DAILY Qty: 5 0RF No Action levothyroxine 75 mcg tablet 75 mcg PO DAILY epinephrine 0.3 mg/0.3 mL auto-injector 0.3 mg IM ONCE Rx Instructions: as a single dose albuterol sulfate 90 mcg/actuation HFA aerosol inhaler 2 puff INHALATION Q6H PRN (Reason: asthma) sumatriptan succinate 100 mg tablet See Rx Instructions PO .COMPLEX Rx Instructions: take 1 tab at onset of headache; if no relief may repeat 1 tab in 2hr; max = 2 tabs/24 hrs PO promethazine 25 mg tablet 25 mg PO PRN PRN (Reason: nausea and vomiting) pregabalin 150 mg capsule 150 mg PO DAILY hydrocodone-acetaminophen 5-325 mg tablet 1 tab PO BID atorvastatin 40 mg tablet 40 mg PO DAILY albuterol sulfate 1.25 mg/3 mL solution for nebulization 1.25 mg inhalation Q4H PRN (Reason: shortness of breath or wheezing) montelukast 10 mg tablet 10 mg PO QDAY hydroxychloroquine [Plaquenil] 200 mg tablet 200 mg PO DAILY cholecalciferol (vitamin D3) 125 mcg (5,000 unit) capsule 125 mcg PO QDAY Breztri Aerosphere 160-9-4.8 mcg/actuation HFA aerosol inhaler inhalation pantoprazole 40 mg tablet,delayed release (DR/EC) 40 mg PO BID Patient Comments: TAKE ONE TABLET BY MOUTH EVERY DAY ON an empty stomach 1/2 hour beforebreakfast aspirin 81 MG tablet,chewable 81 mg PO DAILY@0800 loratadine 10 MG capsule 5 mg PO PRN PRN (Reason: Allergies) midodrine 10 mg Tablet 10 mg PO TID Rx Instructions: do not give last dose of day after 6PM or within 4 hrs of bedtime dicyclomine 20 mg tablet 20 mg PO Q6H PRN PRN (Reason: abdominal discomfort) Qty: 12 0RF metoclopramide HCl [Reglan] 10 mg tablet 10 mg PO Q6H PRN (Reason: nausea and vomiting) Qty: 14 0RF Primary Care Provider: Brian Baez Chi Referrals: Brian Baez Chi, MD [Primary Care Provider] - Activity Restrictions/Additional Instructions: Your workup was largely normal today. He did not have any low oxygen levels in the emergency room. At this time you can be discharged home safely. You have been given a [id number] prescription for steroids in case that you have worsening wheezing or chest tightness and develop a COPD exacerbation. Please follow-up with Dr. Baez. Please return the emergency room if you have worsening symptoms, difficulty breathing or chest tightness. Print Language: Finnish Disposition Disposition: Home, Self Care
[2024-11-23 15:47] LABS: Hematocrit 38.3 % (37-47); Hemoglobin 12.6 g/dL (12.0-15.0); Immature Granulocytes Count 0.020 X10^3/uL (0.0-0.0); Mean Corp Hgb Conc 32.9 g/dL (32-36); Mean Corpuscular Volume 89.1 fL (81-99); Mean Platelet Vol. 10.7 fl (6.2-12.0); NRBC Flagged by Analyzer 0 % (0-5); Platelet Count 260 K/mm3 (150-450); RBC Distribution Width CV 13.3 % (11.6-14.6); RBC Distribution Width SD 43.1 fl (35.1-43.9); Red Blood Count 4.30 M/mm3 (4.2-5.4); White Blood Count 4.8 K/mm3 (4.4-11.0)
[2024-11-23 16:02] VITALS: BP 113/67; PULSE 63
[2024-11-23 16:15] LABS: D-Dimer Quantitative (DVT/PE) 0.56 FEU/ug/m (0.27-0.49)
[2024-11-23 16:30] LABS: Anion Gap 10 (5-15); BUN 8 mg/dL (4-19); BUN/Creat Ratio 11.3 RATIO (10-20); Calcium,Total 9.0 mg/dL (7.6-11.0); Carbon Dioxide 26.6 mmol/L (21.0-32.0); Chloride 104 mmol/L (98-108); Estimated Creatinine Clearance 101.07 ml/min (50-250); Glucose 95 mg/dL (70-99); Potassium 3.9 mmol/L (3.3-5.1)
--- NOTE | 2024-11-23 16:35 | RAD_ITS ---
PROCEDURE: CHEST PA AND LATERAL 11/23/2024 REASON FOR EXAM: SOB TECHNIQUE: CHEST PA AND LATERAL COMPARISON: 11/19/2024 FINDINGS: Bibasilar subsegmental atelectasis. No focal consolidation. No pleural effusion or pneumothorax. Cardiac silhouette is within normal limits. No acute fractures. RAD/Chest PA and Lateral IMPRESSION: No focal consolidations. Reading Location: [id number]
[2024-11-23 16:56] VITALS: BP 103/69; PULSE 66; RESP 14; TEMP 36.6; O2SAT 96
[2024-11-23 18:06] VITALS: BP 104/72; PULSE 66; RESP 19; TEMP 36.6; O2SAT 95
[2024-11-23 18:07] VITALS: O2SAT 95
== END 2024-11-23 18:16 | disposition home or self-care (01) ==
PROVIDERS: Emergency Provider Emergency Medicine; PCP Family Medicine Geriatric Medicine; Visit Provider Emergency Medicine
DX: R06.00 Dyspnea, unspecified (principal); J44.9 Chronic obstructive pulmonary disease, unspecified; K44.9 Diaphragmatic hernia without obstruction or gangrene; R09.02 Hypoxemia; M79.89 Other specified soft tissue disorders; I31.39 Other pericardial effusion (noninflammatory); I10 Essential (primary) hypertension; E78.00 Pure hypercholesterolemia, unspecified; E03.9 Hypothyroidism, unspecified; K21.9 Gastro-esophageal reflux disease without esophagitis; Z79.82 Long term (current) use of aspirin; Z79.890 Hormone replacement therapy; Z79.899 Other long term (current) drug therapy; Z87.891 Personal history of nicotine dependence
CPT/HCPCS: 71046; 80048; 85025; 85379; 93005; 99284; A4216

== ENCOUNTER → 2024-11-28 | Outpatient (CLI) | payer MEDICARE, MEDICAID, SELFPAY ==
--- NOTE | 2024-11-28 15:55 | RAD_ITS ---
EXAM: XR Abdomen, 1 View CLINICAL INDICATION: ABDOMINAL PAIN TECHNIQUE: Frontal supine view of the abdomen/pelvis. COMPARISON: No relevant prior studies available. FINDINGS: GASTROINTESTINAL TRACT: Fecal retention in the colon consistent with constipation. No dilation. BONES/JOINTS: Posterior fusion of the lower lumbar spine. VASCULATURE: Vascular stent in the left iliac region. RAD/Abd Inc Decub and/or Erect IMPRESSION: Fecal retention in the colon consistent with constipation. Reading Location: [facility]
[2024-11-28 16:42] LABS: Hematocrit 41.3 % (37-47); Hemoglobin 13.9 g/dL (12.0-15.0); Immature Granulocytes Count 0.060 X10^3/uL (0.0-0.0); Mean Corp Hgb Conc 33.7 g/dL (32-36); Mean Corpuscular Volume 86.6 fL (81-99); Mean Platelet Vol. 10.9 fl (6.2-12.0); NRBC Flagged by Analyzer 0 % (0-5); Platelet Count 412 K/mm3 (150-450); RBC Distribution Width CV 13.2 % (11.6-14.6); RBC Distribution Width SD 41.6 fl (35.1-43.9); Red Blood Count 4.77 M/mm3 (4.2-5.4); White Blood Count 14.3 K/mm3 (4.4-11.0)
[2024-11-28 17:05] LABS: Color, Urine Yellow (Yellow); Glucose, Dipstick Normal (Normal); Ketone-Dipstick 5 mg/dl (Negative); Leukocyte Esterase-Dipstick 25 /ul (Negative); Nitrite-Dipstick Negative (Negative); Occult Blood-Urine Negative /ul (Negative); Protein-Dipstick 30 mg/dl (Negative); Specific Gravity, Urine 1.025 (1.002-1.030)
[2024-11-28 17:13] LABS: Urine Bilirubin Dipstick 1 mg/dL (Negative)
[2024-11-28 17:30] LABS: Red Blood Cells-Urine 0-5 SEEN /hpf (0-5)
[2024-11-28 17:31] LABS: Mucous, Urine 1+ /hpf (<or=2+); Squamous Epithelial Cells - UA 0-5 SEEN /hpf (5-10)
[2024-11-28 17:36] LABS: AST(SGOT) 16 U/L (<=31); Alanine Aminotransfer ALT/SGPT 14 U/L (<=34); Albumin, Serum 4.5 g/dL (3.4-4.8); Alkaline Phosphatase 98 U/L (35-104); Anion Gap 15 (5-15); BUN 16 mg/dL (4-19); BUN/Creat Ratio 22.4 RATIO (10-20); Calcium,Total 9.5 mg/dL (7.6-11.0); Carbon Dioxide 22.3 mmol/L (21.0-32.0); Chloride 101 mmol/L (98-108); Globulin 2.9 g/dL (2.2-4.2); Glucose 108 mg/dL (70-99); Potassium 4.2 mmol/L (3.3-5.1)
[2024-11-28 23:49] LABS: Xtra Tube Kwok EXTRA TUBE
== END | disposition home or self-care (01) ==
PROVIDERS: PCP Family Medicine Geriatric Medicine; Referring Provider Family Medicine Geriatric Medicine; Visit Provider Family Medicine Geriatric Medicine
DX: R10.9 Unspecified abdominal pain (principal); R35.0 Frequency of micturition
CPT/HCPCS: 36415; 74019; 80053; 81001; 85025; 87086; 87088

== ENCOUNTER → 2024-12-15 | Outpatient (CLI) | payer MEDICARE, SELFPAY | END | disposition home or self-care (01) | PROVIDERS: PCP Family Medicine Geriatric Medicine; Referring Provider Anesthesiology Pain Medicine; Visit Provider Anesthesiology Pain Medicine | DX: M25.551 Pain in right hip (principal) | CPT/HCPCS: 73502 ==

== ENCOUNTER → 2024-12-27 | Outpatient (CLI) | payer MEDICARE, SELFPAY ==
[2024-12-27 13:00] LABS: Hematocrit 37.2 % (37-47); Hemoglobin 12.2 g/dL (12.0-15.0); Immature Granulocytes Count 0.010 X10^3/uL (0.0-0.0); Mean Corp Hgb Conc 32.8 g/dL (32-36); Mean Corpuscular Volume 89.6 fL (81-99); Mean Platelet Vol. 10.7 fl (6.2-12.0); NRBC Flagged by Analyzer 0 % (0-5); Platelet Count 250 K/mm3 (150-450); RBC Distribution Width CV 14.7 % (11.6-14.6); RBC Distribution Width SD 48.2 fl (35.1-43.9); Red Blood Count 4.15 M/mm3 (4.2-5.4); White Blood Count 3.4 K/mm3 (4.4-11.0)
[2024-12-27 13:54] LABS: AST(SGOT) 26 U/L (<=31); Alanine Aminotransfer ALT/SGPT 16 U/L (<=34); Albumin, Serum 4.2 g/dL (3.4-4.8); Alkaline Phosphatase 81 U/L (35-104); Anion Gap 11 (5-15); BUN 12 mg/dL (4-19); BUN/Creat Ratio 14.3 RATIO (10-20); Calcium,Total 9.2 mg/dL (7.6-11.0); Carbon Dioxide 25.4 mmol/L (21.0-32.0); Chloride 105 mmol/L (98-108); Cholesterol 82 mg/dL (<=200); Globulin 2.2 g/dL (2.2-4.2); Glucose 86 mg/dL (70-99); Low Density Lipoprotein Calc. 25 mg/dL; Potassium 4.6 mmol/L (3.3-5.1); Triglycerides 101 mg/dL; Very Low Density Lipoprotein 20 mg/dL (5-40); cholesterol:hdl ratio screen 2.21
== END | disposition home or self-care (01) ==
LOC: LAB 12:03
PROVIDERS: PCP Family Medicine Geriatric Medicine; Referring Provider Family Medicine Geriatric Medicine; Visit Provider Family Medicine Geriatric Medicine
DX: E11.65 Type 2 diabetes mellitus with hyperglycemia (principal); R53.83 Other fatigue; E78.5 Hyperlipidemia, unspecified
CPT/HCPCS: 36415; 80053; 80061; 83036; 84443; 85025

== ENCOUNTER → 2025-03-31 | Outpatient (CLI) | payer MEDICARE, SELFPAY ==
[2025-03-31 13:25] VITALS: PULSE 81; PULSE 84; PULSE 87; PULSE 92; PULSE 94; PULSE 95; O2SAT 95; O2SAT 96; O2SAT 97
--- NOTE | 2025-04-07 11:41 | PCM.PSN.6M ---
PSN 6 Minute Walk Test 6 Minute Walk Test 6 Minute Walk Test: 6 Minute Walk Test PSN:6-Minute Walk Test Start: 03/31/25 13:24 Freq: Status: Active Protocol: [id number] Document 03/31/25 13:25 ZENAIDA (Rec: 03/31/25 13:27 [email or web address] [id number]) 6 Minute Walk Test Date Performed 03/31/25 Time Performed 13:10 Height 5 ft 3 in Weight: 185 lb Weight in Pounds 185.[address]: Kin Sanchez Assistive device None used: Pre-test Oxygen Delivery Room Air Method Pulse Ox (%) 96 Pulse Rate (60-100 81 beats/min) Dyspnea Milena Scale ( 0 0-10) Exertion Milena Scale 6 (6-20) 1st minute Oxygen Delivery Room Air Method Pulse Ox (%) 95 Pulse Rate (60-100 87 beats/min) Number of Rests 1 Taken 2nd minute Oxygen Delivery Room Air Method Pulse Ox (%) 95 Pulse Rate (60-100 87 beats/min) 3rd minute Oxygen Delivery Room Air Method Pulse Ox (%) 96 Pulse Rate (60-100 94 beats/min) Number of Rests 1 Taken 4th minute Oxygen Delivery Room Air Method Pulse Ox (%) 95 Pulse Rate (60-100 95 beats/min) Number of Rests 1 Taken 5th minute Oxygen Delivery Room Air Method Pulse Ox (%) 95 Pulse Rate (60-100 92 beats/min) Number of Rests 1 Taken 6th minute Oxygen Delivery Room Air Method Pulse Ox (%) 96 Pulse Rate (60-100 95 beats/min) Dyspnea Milena Scale ( 3 0-10) Exertion Milena Scale 14 (6-20) Post-test Oxygen Delivery Room Air Method Pulse Ox (%) 97 Pulse Rate (60-100 84 beats/min) Full Laps Walked 6 Partial Lap, Number 12 of Tiles Walked Total Distance 366 Walked (ft) Interpretation Interpretation: The patient ambulated 366 feet over the course of 6 minutes beginning on room air without assistive devices. Pretesting oxygen saturation was noted to be 96% on room air. With ambulation, the liyah oxygen saturation was 95%. Although there was evidence of impaired walk distance, there was no significant exertional oxygen desaturation. Recommendations Recommendations: There is no indication for the use of supplemental oxygen at this time.
== END | disposition home or self-care (01) ==
LOC: PSN 13:09
PROVIDERS: PCP Family Medicine Geriatric Medicine; Referring Provider Internal Medicine Critical Care Medicine; Visit Provider Internal Medicine Critical Care Medicine
DX: J44.9 Chronic obstructive pulmonary disease, unspecified (principal)
CPT/HCPCS: 94618

== ENCOUNTER → 2025-04-04 | Outpatient (CLI) | payer MEDICARE, SELFPAY | END | disposition home or self-care (01) | LOC: PSN 09:42 | PROVIDERS: PCP Family Medicine Geriatric Medicine; Referring Provider Internal Medicine Critical Care Medicine; Visit Provider Internal Medicine Critical Care Medicine | DX: J44.9 Chronic obstructive pulmonary disease, unspecified (principal) | CPT/HCPCS: 94060; 94726; 94729 ==

== ENCOUNTER → 2025-04-21 | Outpatient (CLI) | payer MEDICARE, SELFPAY | END | disposition home or self-care (01) | LOC: PSN 11:07 | PROVIDERS: PCP Family Medicine Geriatric Medicine; Referring Provider Family Medicine Geriatric Medicine; Visit Provider Family Medicine Geriatric Medicine | DX: R06.2 Wheezing (principal) | CPT/HCPCS: 87631 ==